=== PATIENT | female | born 1945 | race Caucasian/White ===

== ENCOUNTER → 2020-08-16 10:45 | Outpatient (BNVA) | payer MEDICARE, SELFPAY | PROVIDERS: PCP Internal Medicine; Referring Provider Internal Medicine; Visit Provider Internal Medicine | DX: M81.0 Age-related osteoporosis without current pathological fracture (principal); E55.9 Vitamin D deficiency, unspecified; R82.994 Hypercalciuria; K21.9 Gastro-esophageal reflux disease without esophagitis | CPT/HCPCS: 99214 ==

== ENCOUNTER 2020-08-17 08:58 | Outpatient (REF) | payer MEDICARE, SELFPAY ==
[2020-08-17 11:17] LABS: Albumin Level 3.8 g/dL (3.5-5.0); Calcium 8.5 mg/dL (8.4-10.2)
[2020-08-17 11:22] LABS: Alanine Aminotransferase 13 U/L (0-31); Alkaline Phosphatase 50 U/L (39-117); Anion Gap 9 (12-20); Aspartate Amino Transferase 18 U/L (5-31); Bilirubin Total 0.4 mg/dL (0.0-1.0); Blood Urea Nitrogen 15 mg/dL (9-16); Calcium 8.6 mg/dL (8.4-10.2); Carbon Dioxide 31 mmol/L (22-29); Chloride 102 mmol/L (96-108); Estimated Glomerular Filt Rate > 60; Glucose Random 79 mg/dL (60-115); Potassium 4.7 mmol/l (3.3-5.1); Sodium 137 mmol/L (135-145); Total Protein 6.8 g/dL (6.5-8.0)
[2020-08-17 11:42] LABS: Thyroid Stimulating Hormone 0.83 mIU/mL (0.32-4.0); Vitamin D 25-OH Total 33.2 ng/mL (>30)
[2020-08-19 21:07] LABS: Calcium (PTHI) 8.7 mg/dL (8.6-10.4); PTHI 38 pg/mL (14-64)
== END 2020-08-17 08:59 | disposition home or self-care (01) ==
LOC: HO.LAB 08:58
PROVIDERS: PCP Internal Medicine; Visit Provider Internal Medicine
DX: M81.0 Age-related osteoporosis without current pathological fracture (principal)
CPT/HCPCS: 36415; 80053; 82040; 82306; 82310; 83970; 84443

== ENCOUNTER 2020-09-16 12:45 | Outpatient (REF) | payer MEDICARE, SELFPAY ==
[2020-09-17 19:01] LABS: Calcium (PTHI) 8.5 mg/dL (8.6-10.4); PTHI 52 pg/mL (14-64)
== END 2020-09-16 12:46 | disposition home or self-care (01) ==
LOC: HO.HMGCLDS 12:45
PROVIDERS: PCP Internal Medicine; Visit Provider Internal Medicine
DX: M81.0 Age-related osteoporosis without current pathological fracture (principal)
CPT/HCPCS: 83970

== ENCOUNTER 2020-09-17 | Outpatient (REF) | payer MEDICARE, SELFPAY ==
[2020-09-23 16:42] LABS: N-Telopeptide 65 (see note); NTXCreaRU 106 mg/dL (20-275)
== END 2020-09-17 00:01 | disposition home or self-care (01) ==
LOC: HO.HMGCLNP
PROVIDERS: Visit Provider Internal Medicine
DX: M81.0 Age-related osteoporosis without current pathological fracture (principal)
CPT/HCPCS: 82523

== ENCOUNTER → 2020-09-22 14:39 | Outpatient (BNVA) | payer MEDICARE, SELFPAY | PROVIDERS: PCP Internal Medicine; Visit Provider Internal Medicine | DX: Z13.89 Encounter for screening for other disorder (principal) ==

== ENCOUNTER 2020-10-19 10:23 | Outpatient (REF) | payer MEDICARE, SELFPAY ==
[2020-10-19 14:24] LABS: Albumin Level 4.1 g/dL (3.5-5.0); Calcium 8.9 mg/dL (8.4-10.2); Estimated Glomerular Filt Rate > 60
[2020-10-19 14:49] LABS: Vitamin D 25-OH Total 27.6 ng/mL (>30)
== END 2020-10-19 10:24 | disposition home or self-care (01) ==
LOC: HO.10HDL 10:23
PROVIDERS: Visit Provider Internal Medicine
DX: M81.0 Age-related osteoporosis without current pathological fracture (principal)
CPT/HCPCS: 82040; 82306; 82310; 82565

== ENCOUNTER 2020-11-01 10:26 | Outpatient (REF) | payer MEDICARE, SELFPAY | END 2020-11-01 10:27 | disposition home or self-care (01) | LOC: HO.LAB 10:26 | PROVIDERS: Visit Provider Internal Medicine | DX: Z20.828 Contact with and (suspected) exposure to other viral communicable diseases (principal) | CPT/HCPCS: C9803; U0003 ==

== ENCOUNTER 2020-11-06 07:57 | Outpatient (REF) | payer MEDICARE, SELFPAY ==
--- NOTE | 2020-11-06 | XR_ITS ---
EXAMINATION: XR CERVICAL SPINE CLINICAL INFORMATION: Neck pain. COMPARISON: None TECHNIQUE: 6 views of the cervical spine were obtained. FINDINGS: There is maintained cervical lordosis. There is grade 1 anterolisthesis C4 over C5. The rest of the vertebral alignment is normal. There is moderate loss of C4-C5, significant loss of disc at C5-C6 and C6-C7 disc levels with posterior spondylosis at the C5-C6 disc level. On oblique views, there is bilateral moderate narrowing of neural foramina C4-C5, C5-C6 and C6-C7 disc levels from uncovertebral hypertrophic changes. No visible fracture or dislocation seen. There is moderate ventral spondylosis. XR/XR cervical spine 4V IMPRESSION: Grade 1 anterolisthesis C4 over C5 with degenerative disc changes C4-C5 through C6-C7 disc levels. There is moderate posterior spondylosis at the C5-C6 disc level. Bilateral narrowing of neural foramina as described above from uncovertebral hypertrophic changes. The same levels, there is bilateral facet joint arthropathy from C4-C5 through C6-C7 disc levels.
== END 2020-11-06 07:58 | disposition home or self-care (01) ==
LOC: HO.XRAY 07:57
PROVIDERS: PCP Internal Medicine; Visit Provider Internal Medicine
DX: M54.2 Cervicalgia (principal)
CPT/HCPCS: 72050

== ENCOUNTER → 2020-11-22 10:43 | Outpatient (BNVA) | payer MEDICARE, SELFPAY | PROVIDERS: PCP Internal Medicine; Visit Provider Internal Medicine | DX: J84.10 Pulmonary fibrosis, unspecified (principal) | CPT/HCPCS: 99212 ==

== ENCOUNTER → 2020-11-25 09:32 | Outpatient (REF) | payer MEDICARE, SELFPAY ==
--- NOTE | 2020-11-25 | NM_ITS ---
EXAMINATION: NM BONE SCAN OF THE WHOLE BODY CLINICAL INFORMATION: Complex fracture cervical vertebra with nonunion. Patient states head and neck pain for 3 weeks, history of osteoporosis. Also states 3 months ago twisted ankle/fell. COMPARISON: No previous bone scan is available for comparison. Radiographs of the cervical spine dated 11/06/2020 and of the left ankle dated 05/03/2020 are available for comparison. TECHNIQUE: Multiple gamma scintillation camera images of the whole body were performed 2.5 hours following the intravenous administration of 16 mCi Tc-99m MDP. FINDINGS: In the head, no significant abnormalities are present. In the thoracic cage and upper extremities, there is mildly increased activity in the right acromioclavicular joint and the sternoclavicular joints bilaterally and very faintly in the glenohumeral articulations of both shoulders. Some residual radiopharmaceutical at the injection site in the right antecubital fossa is noted. In the spine, a minimal thoracolumbar scoliosis is present with lumbar convexity to the left. There is very mildly increased activity in the mid lumbar spine at the L2-L3 level and a faint focus of increased activity is present in the right posterior elements of the mid to lower cervical spine probably at the C5 level and most consistent with facet arthropathy. No other spine abnormalities are present. In the pelvis, no significant abnormalities are present. In the lower extremities, very faint, barely perceptibly increased activity is present in the lateral malleolus of the left ankle. No other definite bony abnormalities are noted. The urinary bladder and faint visualization of both kidneys are noted. Radiographs of the left ankle dated 05/03/2020 show moderate lateral malleolar soft tissue swelling but no fracture or dislocation. Radiographs of the cervical spine dated 11/06/2022 multilevel degenerative changes and a grade 1 anterolisthesis of C4 over C5. NM/NM bone scan whole body IMPRESSION: Mild nonspecific abnormalities are noted as described above and these are all likely arthritic or traumatic in etiology. In the cervical spine the only abnormality is present bilaterally in the mid to lower right side of the cervical spine which is probably in the posterior elements and due to facet arthropathy. None of these abnormalities is strongly suspicious for a recent fracture or metastatic disease.
== END ==
LOC: HO.NUCMED 09:32
PROVIDERS: PCP Internal Medicine; Visit Provider Internal Medicine
DX: S12.9XXD Fracture of neck, unspecified, subsequent encounter (principal)
CPT/HCPCS: 78306; A9503

== ENCOUNTER → 2020-12-02 11:17 | Outpatient (BNVA) | payer MEDICARE, SELFPAY | PROVIDERS: PCP Internal Medicine; Visit Provider Internal Medicine | DX: Z13.89 Encounter for screening for other disorder (principal) | CPT/HCPCS: Q3014 ==

== ENCOUNTER 2021-03-14 09:59 | Outpatient (REF) | payer MEDICARE, SELFPAY ==
[2021-03-14 15:10] LABS: Vitamin D 25-OH Total 41.4 ng/mL (>30)
[2021-03-15 17:16] LABS: Calcium (PTHI) 8.9 mg/dL (8.6-10.4); PTHI 26 pg/mL (14-64)
== END 2021-03-14 10:00 | disposition home or self-care (01) ==
LOC: HO.10HDL 09:59
PROVIDERS: Absent Provider Internal Medicine; Visit Provider Internal Medicine
DX: M81.0 Age-related osteoporosis without current pathological fracture (principal); E55.9 Vitamin D deficiency, unspecified
CPT/HCPCS: 36415; 82040; 82306; 82310; 83970

== ENCOUNTER 2021-03-17 10:57 | Outpatient (REF) | payer MEDICARE, SELFPAY ==
[2021-03-17 11:17] LABS: Glucose Urine UA NEG (NEG); Leukocyte Esterase Urine NEG (NEG); Nitrite Urine NEG (NEG); Urine Blood NEG (NEG); Urine Ketones NEG (NEG); Urine Protein NEG (NEG-TRACE)
[2021-03-17 11:19] LABS: Appearance Urine CLEAR; Color Urine YELLOW
[2021-03-17 11:38] LABS: RBC Urine 0 /HPF (0); Squamous Epithelial Cell Urine TRACE /LPF; WBC Urine 0-2 /HPF (0-4)
== END 2021-03-17 10:58 | disposition home or self-care (01) ==
LOC: HO.LNP 10:57
PROVIDERS: Visit Provider Internal Medicine
DX: R35.0 Frequency of micturition (principal)
CPT/HCPCS: 81001; 87086

== ENCOUNTER 2021-03-21 09:00 | Outpatient (RCR) | payer MEDICARE, SELFPAY ==
--- NOTE | 2021-02-03 16:07 | MHC.PT.EP ---
[facility] [place] Office [place] Office [place] Office [address] [place] Quinn [address] [phone] F: [phone] F: [phone] F: [phone] F: [phone] Physical Therapy Plan of Care Date of Evaluation: 02/03/21 Date of Surgery: n/a Diagnosis: Occipital neuralgia of right side Assessment: The Pt is a 75 y/o female referred to skilled PT services for occipital neuralgia R side. Assessment reveals significantly decreased cervical ROM, impaired strength, impaired muscle length, impaired posture, and tenderness to palpation. Related functional limitations include: difficulty looking down as if to make a salad or text message someone, sleeping, driving, gardening, and walking. The Pt will benefit from skilled PT services 2x/week for 5 weeks in order to reduce impairment and improve limitations. Frequency and Duration: The patient will be seen 2x/week for 5 weeks Short Term Goals: -In 2 weeks, Pt to report less than 6/10 pain when sleeping @ night. -In 3 weeks, Pt to improve ROM in all directions by at least 10 degrees. Residential Goals: -In 4 weeks, Pt to demonstrate increased postural awareness w/ IADLs/ADLs such as texting and meal prep. -In 5 weeks, Pt to demonstrate I w/ HEP. -In 5 weeks, Pt to report 50% improved symptoms. Treatment Plan: Modalities to reduce pain, spasms and effusion. Manual therapy to restore motion and function. Therapeutic exercise to improve strength and flexibility. Neuromuscular re-education for posture and balance. Therapeutic activities to return to functional activities of daily living. Electronically signed by: Nia Baca PT, DPT Please sign and return to therapist. Thank you for your referral.
--- NOTE | 2021-04-05 15:20 | MHC.PT.DC ---
[facility] [place] Office [place] Office [place] Office [address] [place] Quinn 140 [facility] [phone] F: [phone] F: [phone] F: [phone] F: [phone] Physical Therapy Discharge Report Diagnosis: Occipital neuralgia of right side Date of Surgery: n/a Date of Evaluation: 02/03/21 Date of Discharge: 04/05/21 Treatments to Date: 11 Cancellations to Date: 0 No Shows to Date: 0 Discharge Status: Independent with HEP Physician Discontinued Tx Discharge Summary: UNDERWENT MRI, KRIS REPORTS THAT SHE WILL BE FOLLOWING UP WITH NEUROSURGEON HER SYMPTOMS HAVE NOT SIGNIFICANTLY CHANGED Electronically signed by: Daniela Obrien PT, DPT Please sign and return to therapist. Thank you for your referral.
== END 2021-04-05 15:23 | disposition other institution (70) ==
LOC: HO.PT 09:00
PROVIDERS: PCP Internal Medicine; Visit Provider Internal Medicine
DX: M54.81 Occipital neuralgia (principal)
CPT/HCPCS: 97035; 97110; 97112; 97140; 97161

== ENCOUNTER → 2021-03-23 08:50 | Outpatient (BNVA) | payer MEDICARE, SELFPAY | PROVIDERS: PCP Internal Medicine; Visit Provider Internal Medicine | DX: M81.0 Age-related osteoporosis without current pathological fracture (principal); E55.9 Vitamin D deficiency, unspecified; R82.994 Hypercalciuria | CPT/HCPCS: 96372; 99212 ==

== ENCOUNTER 2021-03-24 11:05 | Outpatient (REF) | payer MEDICARE, SELFPAY ==
--- NOTE | ~2021-03-24 | MR_ITS ---
EXAMINATION: MR CERVICAL SPINE WITHOUT CONTRAST CLINICAL INFORMATION: Occipital neuralgia, right side. COMPARISON: Cervical spine MRI December 16, 2013. TECHNIQUE: MRI of the cervical spine was performed using routine sequences without contrast. FINDINGS: Robust bone marrow edema is seen about the right-sided lateral C1-C2 articulation best demonstrated on the STIR series 5 image 12/14. The left-sided C1-C2 articulation is unremarkable. The odontoid is retroflexed and there is some retrodental pannus resulting in narrowing of the cervicomedullary junction the subarachnoid space is not effaced and there is no mass effect on the cord. The vertebral body heights are maintained. There is mild anterolisthesis of C3 on C4, C4 on C5, and C5 on C6. There is multilevel intervertebral disc height loss most advanced at C6-C7 where there are edematous endplate changes. Mild ill-defined intramedullary T2 hyperintensity is seen at the C4-C5 level. The imaged portions of the intracranial contents appear normal. The extraspinal soft tissues appear normal. SPINAL LEVELS: C2-C3: No posterior disc abnormality or spinal canal stenosis. Right-sided facet ankylosis. C3-C4: No posterior disc abnormality or spinal canal stenosis. Bilateral facet ankylosis and uncovertebral hypertrophy resulting in severe right and mild left neural foraminal stenosis. No significant change. C4-C5: Disc osteophyte complex with uncovertebral hypertrophy and severe bilateral facet arthropathy resulting in severe spinal canal stenosis with mass effect on the ventral and dorsal cord. Severe bilateral neural foraminal stenosis. Findings have progressed prior. C5-C6: Disc osteophyte complex without spinal canal stenosis. Left uncovertebral hypertrophy and moderate to severe left and moderate right facet arthropathy results in severe left and mild right neural foraminal stenosis, progressed from prior. C6-C7: Disc osteophyte complex with left more than right uncovertebral hypertrophy and moderate left and mild right facet arthropathy resulting in severe left and moderate right neural foraminal stenosis, similar to prior. C7-T1: No posterior disc abnormality. Moderate to severe bilateral facet arthropathy. No spinal canal or neural foraminal stenosis. MR/MR cervical spine wo con IMPRESSION: Significant marrow edema seen about the right-sided lateral C1-C2 articulation reflecting advanced arthropathy, new from prior. This finding may be the source of the patient's right-sided occipital neuralgia. Multilevel degenerative spondylosis with interval progression compared with 2014. At C4-C5 there is new severe spinal canal stenosis with mild intramedullary edema. Neural foraminal stenosis appears severe on the right at C3-C4, severe bilaterally at C4-C5, severe on the left at C5-C6, and severe on the left and moderate on the right at C6-C7. This critical result was discussed with Dr. Jennings on 03/28/2021 2:09 PM, and it was ascertained that the content and urgency of the report was understood at the time of direct communication.
== END 2021-03-24 11:06 | disposition home or self-care (01) ==
LOC: HO.MRI 11:05
PROVIDERS: Visit Provider Internal Medicine
DX: M54.81 Occipital neuralgia (principal)
CPT/HCPCS: 72141

== ENCOUNTER 2021-04-06 10:04 | Outpatient (REF) | payer MEDICARE, SELFPAY ==
[2021-04-06 13:43] LABS: Albumin Level 3.9 g/dL (3.5-5.0); Estimated Glomerular Filt Rate > 60
[2021-04-08 10:22] LABS: PTHI 27 pg/mL (14-64)
== END 2021-04-06 10:05 | disposition home or self-care (01) ==
LOC: HO.10HDL 10:04
PROVIDERS: Visit Provider Internal Medicine
DX: M81.0 Age-related osteoporosis without current pathological fracture (principal)
CPT/HCPCS: 36415; 82040; 82310; 82565; 83970

== ENCOUNTER 2021-06-16 10:43 | Outpatient (REF) | payer MEDICARE, SELFPAY ==
--- NOTE | ~2021-06-16 | XR_ITS ---
EXAMINATION: XR CERVICAL SPINE CLINICAL INFORMATION: Cervical spondylosis. COMPARISON: MRI cervical spine 03/24/2021, radiographs cervical spine 11/06/2020 TECHNIQUE: Cervical spine is imaged in 8 views: AP, lateral, bilateral oblique, odontoid x3, and Fuchs. FINDINGS: There is normal cervical lordosis. The vertebral bodies are normal in height. There is no vertebral compression, visible destructive process, or prevertebral soft tissue swelling. Again, there are degenerative disc changes greatest at C5-C6 and C6-C7 with disc narrowing and endplate sclerosis and vertebral spurring. There is lesser disc narrowing at C4-C5. Facet degeneration is again noted mid to lower cervical spine. There is mild spondylolisthesis C4 and C5 and borderline retrolisthesis C6 on C7 similar to prior radiographs 11/06/2020. The oblique views again show variable multilevel spurring towards the bilateral neural foramina. XR/XR cervical spine 4V IMPRESSION: 1. Multilevel degenerative disc and degenerative facet changes similar to prior radiographs 11/06/2020. 2. Mild spondylolisthesis C4-C5 and retrolisthesis C6 on C7 similar to prior exam. 3. Variable bilateral multilevel foraminal spurring.
--- NOTE | ~2021-06-16 | MM_ITS ---
EXAMINATION: MM SCREENING DIGITAL BREAST TOMOSYNTHESIS, BILATERAL CLINICAL INFORMATION: Screening. Asymptomatic. The lifetime risk of breast cancer based on the Tyrer-Cuzick Model is 2%. COMPARISON: Outside mammography: 07/12/2020, 03/19/2019, 11/29/2017 ([facility]) TECHNIQUE: Digital breast tomosynthesis is performed in both the craniocaudal and mediolateral oblique views along with computer-aided detection (CAD). Synthesized 2D images are generated from the tomosynthesis. FINDINGS: The breasts are heterogeneously dense, which may obscure small masses (ACR BI-RADS breast composition Category c). The denser parenchymal pattern is in the anterior breasts. The parenchymal pattern is similar to prior outside exams. There is no mass or architectural abnormality or abnormal calcifications. The axilla and skin contours are unremarkable. No significant changes. MM/MM tomosynthesis screening BI IMPRESSION: No mammographic evidence of malignancy. ASSESSMENT: BI-RADS 1: Negative RECOMMENDATION: Routine annual mammography screening. This patient's information was entered into a reminder system with a target due date for their next mammogram.
== END 2021-06-16 10:44 | disposition home or self-care (01) ==
LOC: HO.MAMMO 10:43
PROVIDERS: Absent Provider Physician Assistant; PCP Internal Medicine; Visit Provider Internal Medicine
DX: Z12.31 Encounter for screening mammogram for malignant neoplasm of breast (principal); M54.2 Cervicalgia
CPT/HCPCS: 72050; 77063; 77067

== ENCOUNTER 2021-08-01 10:28 | Outpatient (REF) | payer MEDICARE, SELFPAY ==
[2021-08-01 10:32] LABS: MANUAL DIFF FLAG NO
[2021-08-01 11:26] LABS: Basophils Percent Auto 0.6 % (0-2); Eosinophils Absolute Auto 0.1 X10*3/uL (0.0-0.4); Eosinophils Percent Auto 2.6 % (0-4); Hematocrit 43.1 % (37-47); Hemoglobin 14.4 g/dl (12.0-16.0); Imm Gran Abs Auto 0.02 X10*3/uL (0.00-0.03); Imm Gran Pct Auto 0.4 % (0.0-0.4); Lymphocytes Absolute Auto 1.5 X10*3/uL (1.2-4.9); Lymphocytes Percent Auto 29.1 % (20-40); Mean Corpuscular HGB Conc 33.4 g/dl (31.0-35.0); Mean Corpuscular Hemoglobin 30.9 pg (27.0-33.0); Mean Corpuscular Volume 92.5 fL (80-98); Mean Platelet Volume 11.2 fL (9.4-12.3); Monocytes Absolute Auto 0.6 X10*3/uL (0.1-1.2); Monocytes Percent Auto 11.2 % (2-11); Neutrophils Absolute Auto 2.9 X10*3/uL (2.0-8.3); Neutrophils Percent Auto 56.1 % (45-73); Platelet Count 258 X10*3/uL (160-400); Red Blood Count 4.66 X10*6/uL (4.20-5.50); Red Cell Distribution Width 12.3 % (11.0-16.0); White Blood Count 5.1 X10*3/uL (4.8-10.8)
[2021-08-01 12:08] LABS: Appearance Urine HAZY; Color Urine YELLOW; Glucose Urine UA NEG (NEG); Leukocyte Esterase Urine NEG (NEG); Nitrite Urine NEG (NEG); Specific Gravity - Urine 1.015 (1.005-1.025); Urine Blood NEG (NEG); Urine Ketones NEG (NEG); Urine Protein NEG (NEG-TRACE)
[2021-08-01 14:36] LABS: Vitamin D 25-OH Total 41.9 ng/mL (>30)
[2021-08-01 14:47] LABS: Alanine Aminotransferase 11 U/L (0-31); Alkaline Phosphatase 40 U/L (39-117); Anion Gap 16 (12-20); Aspartate Amino Transferase 21 U/L (5-31); Bilirubin Total 0.3 mg/dL (0.0-1.0); Blood Urea Nitrogen 12 mg/dL (9-16); Calcium 8.8 mg/dL (8.4-10.2); Carbon Dioxide 24 mmol/L (22-29); Chloride 101 mmol/L (96-108); Cholesterol 212 mg/dL; Estimated Glomerular Filt Rate > 60; Glucose Fasting 83 mg/dL (60-99); HDL Cholesterol 86 mg/dL; LDL Cholesterol Calculated 118 mg/dl; Potassium 4.5 mmol/L (3.3-5.1); Sodium 136 mmol/L (135-145); Total Protein 6.7 g/dL (6.5-8.0); Triglycerides 42 mg/dL
== END 2021-08-01 10:29 | disposition home or self-care (01) ==
LOC: HO.LNP 10:28
PROVIDERS: Visit Provider Internal Medicine
DX: M81.0 Age-related osteoporosis without current pathological fracture (principal); E55.9 Vitamin D deficiency, unspecified; E78.00 Pure hypercholesterolemia, unspecified
CPT/HCPCS: 80053; 80061; 81003; 82306; 85025

== ENCOUNTER 2021-10-27 11:00 | Outpatient (RCR) | payer MEDICARE, SELFPAY | END 2021-10-28 14:29 | disposition home or self-care (01) | LOC: HO.PT 11:00 | PROVIDERS: PCP Internal Medicine; Visit Provider Physician Assistant | DX: M43.6 Torticollis (principal); M62.838 Other muscle spasm; M54.81 Occipital neuralgia | CPT/HCPCS: 97110; 97140; 97161; 97535 ==

== ENCOUNTER 2021-11-02 09:25 | Outpatient (REF) | payer MEDICARE, SELFPAY ==
--- NOTE | ~2021-11-02 | MM_ITS ---
EXAMINATION: BONE DENSITOMETRY CLINICAL INDICATION: Osteoporosis. COMPARISON: Previous BD dated 10/30/2019 and baseline BD dated 03/05/2007. TECHNIQUE: Using a [employer] DXA System (software version: 13.1) manufactured by [employer], dual-energy x-ray absorptiometry was performed of the lumbar spine and left hip. The images are of good technical quality. Summary results are attached. FINDINGS: AP SPINE L1-L4 (excluding L3): The data of L1-L4 has been changed to exclude the L3 vertebral body, because degenerative changes at this level may cause overestimation of lumbar spine density. Current: BMD 0.947 g/cm2, Z-score 0.6, T-score -1.9, osteopenia, 0.1% increase from previous, 5.3% decrease from baseline (<5% change is not significant). Prior: BMD 0.946 g/cm2. Baseline: BMD 1.000 g/cm2. LEFT FEMUR, NECK: Current: BMD 0.769 g/cm2, Z-score 0.6, T-score -1.9, osteopenia. Prior: BMD 0.697 g/cm2. Baseline: BMD 0.736 g/cm2. LEFT FEMUR, TOTAL: Current: BMD 0.760 g/cm2, Z-score 0.4, T-score -2.0, osteopenia, 8.9% increase from previous, 1.8% decrease from baseline (<5% change is not significant). Prior: BMD 0.698 g/cm2. Baseline: BMD 0.774 g/cm2. IDENTIFIED RISK FACTORS: Menopause, osteoporosis. HISTORY OF FRACTURE: None listed. MEDICATIONS: Calcium supplements or multivitamin, vitamin D, Prolia. MM/XR DEXA axial skeleton IMPRESSION: 1. DIAGNOSIS: Osteopenia based on the lowest T-score value of -2.0 in the total femur applying World Health Organization criteria. 2. 10-YEAR FRACTURE RISK PREDICTION, FRAX: Major osteoporotic fracture (clinical spine, forearm, hip or shoulder) 13.0%. Hip fracture 3.8%. 3. Treatment Recommendations: NOF guidelines recommend consideration for treatment in postmenopausal women and men age 50 and older presenting with the following: -A hip or vertebral (clinical or morphometric) fracture. -T-score less than or equal to -2.5 at the femoral neck or spine after appropriate evaluation to exclude secondary causes. -Low bone mass at the hip or spine and a 10-year fracture probability by FRAX of greater than or equal to 3% for hip fracture or greater than or equal to 20% for major osteoporotic fracture based on the [place] adapted WHO algorithm. 4. Other Recommendations: All treatment decisions require clinical judgment and consideration of individual patient factors, including patient preferences, comorbidities, previous drug use, risk factors not captured in the FRAX model (e.g. frailty, falls, vitamin D deficiency, increased bone turnover, interval significant decline in bone density) and possible under or overestimation of fracture risk by FRAX. Additional medical evaluation for secondary cause of low bone mineral density may be appropriate. FUTURE SCAN RECOMMENDATION: People with diagnosed cases of osteoporosis or at high risk for fracture should have regular bone mineral density tests. For patients eligible for Medicare, routine testing is allowed once every 2 years. The testing frequency can be increased to one year for patients who have rapidly progressing disease, those who are receiving or discontinuing medical therapy to restore bone mass, or have additional risk factors.
== END 2021-11-02 09:26 | disposition home or self-care (01) ==
LOC: HO.MAMMO 09:25
PROVIDERS: Visit Provider Internal Medicine
DX: Z13.820 Encounter for screening for osteoporosis (principal); M85.80 Other specified disorders of bone density and structure, unspecified site; Z78.0 Asymptomatic menopausal state; Z79.899 Other long term (current) drug therapy
CPT/HCPCS: 77080

== ENCOUNTER → 2021-11-30 09:19 | Outpatient (BNVA) | payer MEDICARE, SELFPAY | PROVIDERS: PCP Internal Medicine; Visit Provider Internal Medicine | DX: J84.10 Pulmonary fibrosis, unspecified (principal) | CPT/HCPCS: 99212 ==

== ENCOUNTER 2021-12-13 12:40 | Outpatient (REF) | payer MEDICARE, SELFPAY ==
[2021-12-13 14:22] LABS: Alanine Aminotransferase 9 U/L (0-31); Alkaline Phosphatase 48 U/L (39-117); Anion Gap 9 (12-20); Aspartate Amino Transferase 20 U/L (5-31); Bilirubin Total 0.3 mg/dL (0.0-1.0); Blood Urea Nitrogen 16 mg/dL (9-16); Calcium 9.1 mg/dL (8.4-10.2); Carbon Dioxide 30 mmol/L (22-29); Chloride 100 mmol/L (96-108); Estimated Glomerular Filt Rate > 60; Glucose Random 122 mg/dL (60-115); Phosphorus 3.4 mg/dL (2.7-4.5); Potassium 4.3 mmol/L (3.3-5.1); Sodium 135 mmol/L (135-145); Total Protein 6.9 g/dL (6.5-8.0)
[2021-12-13 14:43] LABS: Vitamin D 25-OH Total 43.4 ng/mL (>30)
[2021-12-14 16:06] LABS: Calcium, Ionized 4.7 mg/dL (4.8-5.6)
[2021-12-15 16:31] LABS: PTHI 35 pg/mL (14-64)
== END 2021-12-13 12:41 | disposition home or self-care (01) ==
LOC: HO.10HDL 12:40
PROVIDERS: Visit Provider Internal Medicine
DX: M81.0 Age-related osteoporosis without current pathological fracture (principal); E55.9 Vitamin D deficiency, unspecified
CPT/HCPCS: 36415; 80053; 82306; 82330; 83970; 84100

== ENCOUNTER 2021-12-14 09:14 | Outpatient (REF) | payer MEDICARE, SELFPAY ==
[2021-12-18 09:36] LABS: N-Telopeptide 40 (see note); NTXCreaRU 80 mg/dL (20-275)
== END 2021-12-14 09:15 | disposition home or self-care (01) ==
LOC: HO.10HDLNP 09:14
PROVIDERS: Visit Provider Internal Medicine
DX: M81.0 Age-related osteoporosis without current pathological fracture (principal)
CPT/HCPCS: 82523

== ENCOUNTER 2021-12-20 10:29 | Emergency (ER) | payer MEDICARE, SELFPAY ==
--- NOTE | ~2021-12-20 | XR_ITS ---
EXAMINATION: XR WRIST, RIGHT CLINICAL INFORMATION: Fall COMPARISON: None TECHNIQUE: Four views of the right wrist. FINDINGS: There is a comminuted displaced impacted fracture of the right distal radius. This is intra-articular with the radiocarpal joint. There is a minimally displaced ulnar styloid fracture. There is arthritis at the first [facility] and trapezoid trapezium scaphoid joints. There is soft tissue swelling adjacent to the fractures. XR/XR wrist RT 2V IMPRESSION: Right distal radius and ulnar styloid fractures.
[2021-12-20 10:34] VITALS: BP 120/61; PULSE 68; RESP 14; TEMP 36.6; O2SAT 98
[2021-12-20 10:46] VITALS: BP 124/72; PULSE 64; O2SAT 98; BMI 21.2
--- NOTE | 2021-12-20 10:58 | ED.FALL ---
HPI - Fall General Chief Complaint: Fall Stated Complaint: SLIP/FALL ON ICE, WRIST PAIN/INJURY,+CCOLLAR Time Seen by Provider: 12/20/21 10:51 Source: patient and EMS Mode of arrival: EMS Limitations: no limitations History of Present Illness HPI Narrative: 76-year-old female with a history of pulmonary fibrosis, vitamin-D deficiency, osteoporosis here with reports of right wrist and hand pain after a slip and fall on the ice with a fall on her outstretched hand. patient is right-handed. She denies any head injury or loss of consciousness. She is not on any anticoagulation. She has no other physical complaints. Related Data Home Medications Medication Instructions Recorded Confirmed citalopram 10 mg tablet 10 mg PO DAILY 08/16/20 03/23/21 cranberry 400 mg capsule 400 mg PO DAILY 11/22/20 03/23/21 docusate sodium 100 mg capsule 100 mg PO DAILY 11/22/20 03/23/21 (Colace) estradiol 1 g VAGINAL 2XW g 11/30/21 Previous Rx's Medication Instructions Recorded denosumab 60 mg/mL subcutaneous 60 mg SUBCUT [id number] 180 Days #1 08/23/21 syringe (Prolia) ml calcium citrate 315 mg-vitamin D3 1 tab PO DAILY 30 Days #30 tab 11/21/21 5 mcg (200 unit) tablet cholecalciferol (vitamin D3) 25 25 mcg PO DAILY 30 Days #30 cap 11/27/21 mcg (1,000 unit) capsule Allergies Allergy/AdvReac Type Severity Reaction Status Date / Time Sulfa (Sulfonamide Allergy Severe Anaphylaxis Verified 11/30/21 09:29 Antibiotics) codeine [CODEINE] Allergy Intermediate GI UPSET Verified 11/30/21 09:29 erythromycin base AdvReac Severe gi upset Verified 11/30/21 09:29 Review of Systems Review of Systems: Yes all other systems are reviewed and are negative Constitutional: Constitutional: Reports no additional constitutional complaints, Denies body ache(s), Denies chills, Denies fever(s), Denies headache(s) and Denies weakness Eyes: Eyes: Reports no additional eye complaints and Denies change in vision ENT: Reports system reviewed and no additional complaints, except as documented, Denies dizziness, Denies headache(s), Denies nasal congestion, Denies nasal discharge and Denies neck pain Cardiovascular: Cardiovascular: Reports no additional cardiovascular complaints, Denies chest pain, Denies leg edema and Denies dyspnea Respiratory: Respiratory: Reports no additional respiratory complaints, Denies cough and Denies dyspnea Gastrointestinal: Gastrointestinal: Reports no additional gastrointestinal complaints, Denies abdominal pain, Denies diarrhea, Denies nausea and Denies vomiting Genitourinary: Genitourinary: Reports no additional female genitourinary complaints and Denies urinary incontinence Musculoskeletal: Musculoskeletal: Reports no additional musculoskeletal complaints, Denies back pain, Denies arthralgias, Reports joint swelling, Reports limited range of motion, Denies neck pain, Denies numbness and Denies tingling Integumentary/Breasts: Skin/Breast: Reports system reviewed and no additional complaints, except as docu and Denies rash Neurologic: Reports system reviewed and no additional complaints, except as documented, Denies Abnormal speech present, Denies dizziness, Denies headache(s), Denies numbness, Denies tingling and Denies weakness PMFSH Past Medical History Attestation statement: The following information was validated with the patient. Source: old records reviewed and nursing notes reviewed Medical History Glaucoma Hypercalciuria Osteoporosis Pulmonary fibrosis Vitamin D deficiency Surgical History History of carpal tunnel surgery Hx of adenoidectomy Hx of colonoscopy Hx of hammer toe correction Hx of tonsillectomy Family History Family History Father Lung cancer Mother CVD (cardiovascular disease) Social History Social History Advance Directives: Yes Advance Directives Information Provided: No Advance Directives on File: No Physical Exam Vital Signs: Vital Signs: Last Vital Signs Temp 97.9 F 12/20/21 10:34 Pulse 68 12/20/21 10:34 Resp 14 12/20/21 10:34 BP 120/61 12/20/21 10:34 Pulse Ox 98 12/20/21 10:34 BMI result Body Mass Index 21.2 Const: General: cooperative, healthy appearing, comfortable and no acute distress Orientation/consciousness: patient oriented x3 Limitations: no limitations HENMT: Head: Yes normal to inspection Ears: hearing grossly normal bilaterally General nose exam: Normal external nose present Face and sinus: Yes normal facial exam Mouth: Normal oral and palatal mucosa present Throat: Yes posterior oropharynx normal Eyes: General: appearance normal, both eyes and all related structures Pupils: Equal, round and reactive pupils present Neck: Neck: Yes normal visual inspection Chest: Chest palpation & inspection: normal inspection of the chest Resp: Effort & Inspection: normal respiratory effort Auscultation: clear to auscultation bilaterally Cardio: Rate: regular rate Rhythm: regular rhythm Peripheral pulses: Peripheral pulses 2+ throughout GI: Inspection: Yes normal to inspection Palpation (GI): Soft to palpation and nontender Auscultation: normal bowel sounds Back/Spine/Pelvis: Thoracic/Lumbar Spine: thoracic and lumbar spine normal to inspection Skin: General skin exam: no rashes or lesions noted Neuro: General: patient oriented x3, no focal motor deficits and normal sensation to monofilament Cranial nerves: Yes CN's II-XII intact bilaterally, Yes Equal, round and reactive pupils present, Yes Bilaterally intact EOM present, Yes Nystagmus not present, Yes Normal facial strength present and Yes Midline tongue present Cognition (Neuro): normal cognition Speech: No Abnormal speech present Gait exam (Neuro): Normal gait present Motor exam (neuro): 5/5 motor strength present throughout Sensory Exam: Normal double simultaneous stimulation for sensation Extrem: Other: There is swelling and tenderness to the right distal dorsal wrist with limited flexion and extension of the wrist due to pain. no tenderness or swelling of the hand over the elbow or the shoulder. Neurovascularly intact distally to the injury. General: Yes normal to inspection Course Course Course Narrative: 76-year-old female right-handed here with FOOSH to the right upper extremity. WIll check x-rays, provide analgesia. No head strike or loss of consciousness. Normal neurological exam. no neck pain. No need for imaging of head/neck. cervical collar removed. CMS Intact before and after,. 1215- X-rays of wrist show FINDINGS: There is a comminuted displaced impacted fracture of the right distal radius. This is intra-articular with the radiocarpal joint. There is a minimally displaced ulnar styloid fracture. There is arthritis at the first [facility] and trapezoid trapezium scaphoid joints. There is soft tissue swelling adjacent to the fractures. XR/XR wrist RT 2V IMPRESSION: Right distal radius and ulnar styloid fractures. - light traction and counter traction used during placement of sugar-tong splint and sling. I discussed the case with orthopedics Gail HUGHES. they will follow-up with patient outpatient. Patient is here with a son who will take her home. They feel comfortable with plan for discharge home. Reviewed worrisome signs and symptoms of when to return to the emergency department. Comfortable discharge home. Procedures Orthopedic Splinting/Casting Injury #1: Side: right Upper Extremity Injury Location: forearm Upper Extremity Immobilizer: sugar tong splint MDM - Fall Medical Records Attestation: I reviewed the patient's medical records. Lab Data Attestation: I reviewed the patient's lab results. Imaging Data right schneider/wrist xry: Attestation: I personally reviewed and interpreted this imaging study as follows: Radiologist's impression: FINDINGS: There is a comminuted displaced impacted fracture of the right distal radius. This is intra-articular with the radiocarpal joint. There is a minimally displaced ulnar styloid fracture. There is arthritis at the first [facility] and trapezoid trapezium scaphoid joints. There is soft tissue swelling adjacent to the fractures. XR/XR wrist RT 2V IMPRESSION: Right distal radius and ulnar styloid fractures. Discharge Plan Discharge Clinical Impression: Distal radial fracture, Fracture of right ulnar styloid Patient Disposition: Home, Self-Care Instructions: Wrist Fracture in Adults (ED), Splint Care (ED) Additional Instructions: this splint must stay on all times. do not get it wet. use a sling for comfort. call Orthopedics for follow-up appointment ice, elevate, do not use the extremity Alternate Motrin and Tylenol for pain as needed Prescriptions: No Action Prolia 60 mg/mL syringe 60 mg subcut [id number] 180 Days Qty: 1 2RF calcium citrate-vitamin D3 315 mg-5 mcg (200 unit) tablet 1 tab PO DAILY 30 Days Qty: 30 11RF cholecalciferol (vitamin D3) 25 mcg (1,000 unit) capsule 25 mcg PO DAILY 30 Days Qty: 30 11RF cranberry 400 mg capsule 400 mg PO DAILY 0RF Rx Instructions: administer with a meal docusate sodium [Colace] 100 mg capsule 100 mg PO DAILY 0RF estradiol 0.01 % (0.1 mg/gram) cream 1 g vaginal 2XW 0RF citalopram 10 mg tablet 10 mg PO DAILY 0RF Referrals: Raj Graves MD [Physician] - 2 days Interventions: ED Discharge Assessment Last Done: 12/20/21 12:03 Discharge Date/Time: 12/20/21 12:04
[2021-12-20] MEDS: Ibuprofen 600 MG TABLET PO (11:19)
== END 2021-12-20 12:04 | disposition home or self-care (01) ==
PROVIDERS: Emergency Provider Emergency Medicine; PCP Internal Medicine
DX: S52.501A Unspecified fracture of the lower end of right radius, initial encounter for closed fracture (principal); S52.611A Displaced fracture of right ulna styloid process, initial encounter for closed fracture; M25.531 Pain in right wrist; W00.0XXA Fall on same level due to ice and snow, initial encounter; Y93.9 Activity, unspecified; Y92.9 Unspecified place or not applicable; Y99.9 Unspecified external cause status
CPT/HCPCS: 29125; 73100; 99283; 99284

== ENCOUNTER → 2021-12-22 09:32 | Outpatient (BNVA) | payer MEDICARE, SELFPAY | PROVIDERS: PCP Internal Medicine; Visit Provider Internal Medicine | DX: S52.501A Unspecified fracture of the lower end of right radius, initial encounter for closed fracture (principal); M81.0 Age-related osteoporosis without current pathological fracture; E55.9 Vitamin D deficiency, unspecified | CPT/HCPCS: 29125; 99202; 99212 ==

== ENCOUNTER 2021-12-26 07:04 | Day surgery (SDC) | payer MEDICARE, SELFPAY ==
--- NOTE | 2021-12-23 11:01 | HO.ANESPROP2 ---
Documented by User: Anabel Carrington NP 12/23/21 11:04 HPI - Anesthesia Eval Consult details Narrative: 76yo F for Right Radius Distal Fracture ORIF 11/2021 Routine Pulmo visit: pulmonary fibrosis mild and essentially asymptomatic PMFSH Active Problems Active Problems: All Active Problems (Updated 12/22/21 @ 10:54 by Jyoti Bejarano PA-C) Distal radius fracture, right (Acute) Pulmonary fibrosis (Acute) Vitamin D deficiency (Acute) Hypercalciuria (Acute) Osteoporosis (Acute) Past Medical History Medical History Glaucoma Hypercalciuria Osteoporosis Pulmonary fibrosis Vitamin D deficiency Family History Family History Father Lung cancer Mother CVD (cardiovascular disease) Surgical History Surgical History History of carpal tunnel surgery Hx of adenoidectomy Hx of colonoscopy Hx of hammer toe correction Hx of neck surgery Hx of tonsillectomy Social History Social History Alcohol intake: never Patient Tobacco Use Status: Former Tobacco user Years Smoked: 5 Use of substances other than those prescribed or required for medical reasons: No Are you DNR?: No Advance Directives: No Advance Directives Information Provided: No Meds Allergies Allergy/AdvReac Type Severity Reaction Status Date / Time Sulfa (Sulfonamide Allergy Severe Anaphylaxis Verified 12/22/21 09:54 Antibiotics) codeine [CODEINE] Allergy Intermediate GI UPSET Verified 12/22/21 09:54 erythromycin base AdvReac Severe gi upset Verified 12/22/21 09:54 Home Medications Medication Instructions Recorded Confirmed Last Taken Type citalopram 10 mg tablet 10 mg PO DAILY 08/16/20 12/22/21 Unknown History cranberry 400 mg capsule 400 mg PO DAILY 11/22/20 12/22/21 Unknown History docusate sodium 100 mg capsule 100 mg PO DAILY 11/22/20 12/22/21 Unknown History (Colace) estradiol 1 g VAGINAL 2XW g 11/30/21 12/22/21 Unknown History Exam Exam Date and Time: December 23, 2021 1101 Pertinent Lab Results Pertinent Lab Results: Laboratory Tests 08/01/21 12/13/21 08:20 12:50 WBC 5.1 Hgb 14.4 Hct 43.1 Plt Count 258 Sodium 135 Potassium 4.3 Chloride 100 Carbon Dioxide 30 H BUN 16 Creatinine 0.73 Narrative Narrative: Pulmonary function test on 06/24/2020 She has only minimal degree of restrictive pulmonary disorder.? No obstructive disorder and no response to bronchodilator therapy. Assessment and Plan Assessment Anesthesia Assessment: Chart Reviewed Documented by User: Ziyad Henry MD 12/26/21 07:24 PMFSH Past Medical History Medical History Glaucoma Hypercalciuria Osteoporosis Pulmonary fibrosis Vitamin D deficiency Family History Family History Father Lung cancer Mother CVD (cardiovascular disease) Family history of problems with anesthesia: No Surgical History Surgical History History of carpal tunnel surgery Hx of adenoidectomy Hx of colonoscopy Hx of hammer toe correction Hx of neck surgery Hx of tonsillectomy History of Problems with Anesthesia: No Social History Social History Alcohol intake: never Patient Tobacco Use Status: Former Tobacco user Years Smoked: 5 Use of substances other than those prescribed or required for medical reasons: No Are you DNR?: No Advance Directives: No Advance Directives Information Provided: No Meds Allergies Allergy/AdvReac Type Severity Reaction Status Date / Time Sulfa (Sulfonamide Allergy Severe Anaphylaxis Verified 12/22/21 09:54 Antibiotics) codeine [CODEINE] Allergy Intermediate GI UPSET Verified 12/22/21 09:54 erythromycin base AdvReac Severe gi upset Verified 12/22/21 09:54 Home Medications Medication Instructions Recorded Confirmed Last Taken Type citalopram 10 mg tablet 10 mg PO DAILY 08/16/20 12/22/21 Unknown History cranberry 400 mg capsule 400 mg PO DAILY 11/22/20 12/22/21 Unknown History docusate sodium 100 mg capsule 100 mg PO DAILY 11/22/20 12/22/21 Unknown History (Colace) estradiol 1 g VAGINAL 2XW g 11/30/21 12/22/21 Unknown History Assessment and Plan Assessment Anesthesia Assessment: Anesthesia Plan Discussed Final Anesthetic Review Family History of Problems with Anesthesia: No History of Problems with Anesthesia: No NPO: Yes ASA Class: II Final Preanesthetic Review: No Changes in Pt Med Stat, Meds/Allgs Chart Reviewed, Consent Obtained/Reviewed and Anes Risks/Benef Reviewed Patient Risk: Intermediate Procedure Risk: Low Anesthetic Plan Anesthetic Plan: GA and Regional Block Disposition: Standard PACU
--- NOTE | ~2021-12-26 | FL_ITS ---
EXAMINATION: XR FLUOROSCOPY WITH IMAGES CLINICAL INFORMATION: Right distal radius fracture. COMPARISON: Right wrist x-ray 12/20/2020. TECHNIQUE: Fluoroscopy performed by Erica Fry MD Fluoroscopy time: 25.2 seconds DAP: 82648.3 uGy-cm2 Images: 3 FINDINGS: There is a new volar plate and screws transfixing the right distal radius fracture. There is improved anatomic alignment. Ulnar styloid fracture not well appreciated. FL/FL guidance in OR IMPRESSION: ORIF of right distal radius fracture.
[2021-12-26 07:14] VITALS: BMI 19.8
[2021-12-26] MEDS: Scopolamine 1.5 MG PATCH.TD.3 TRANSDERMA (07:36)
[2021-12-26] MEDS: Lactated Ringers 1,000 ML 100 ML IVCONT (07:48)
[2021-12-26 07:56] VITALS: BP 149/63; PULSE 63; RESP 18; TEMP 36.9; O2SAT 97
--- NOTE | 2021-12-26 08:08 | MHC.SHP ---
Pre-Procedural Eval Section A Date of Service: 12/26/21 The patient is an INPATIENT: No Changes since office visit: No Cold of Flu in the past 2 weeks, No New Medical Problems, No Changes in Medication and No Patient answered all questions The History & Physical has been completed within 30 days and I have reviewed it.: Yes Section B Chief Complaint: fx of lower end right radius Allergies: Allergies Allergy/AdvReac Type Severity Reaction Status Date / Time Sulfa (Sulfonamide Allergy Severe Anaphylaxis Verified 12/22/21 09:54 Antibiotics) codeine [CODEINE] Allergy Intermediate GI UPSET Verified 12/22/21 09:54 erythromycin base AdvReac Severe gi upset Verified 12/22/21 09:54 Plan I have reviewed the history and physical and performed a pertinent physical examination on my patient. No changes have occurred unless specified.
--- NOTE | 2021-12-26 08:09 | P.OP_ITS ---
Operative Note Operative Note Date of Service: 12/26/21 Narrative: Operative Note Narrative: Preop diagnosis: 1. Right intra-articular Distal radius fracture Postop diagnosis: Same Procedure: 1. Right Distal radius fracture open reduction internal fixation, intra- articular 2 part Surgeon: Erica Fry MD Anesthesia: Mac plus regional block Findings: 2 part intra-articular distal radius fracture Implants: A 3 hole Accu Med volar locking plate, with 4x 2.3 mm locking pegs/screws, and 3 3.5 mm cortical screws Tourniquet time: 41 minutes EBL: 5.0 ml Specimen: None Drains: None Complications: None Disposition: Brought to the recovery room in stable condition Plan: Follow-up in 10-14 days for wound check, suture removal and postop radiographs The patient will be placed in either a short-arm cast Encouraged no lifting of anything heavier than a cell phone. Please encourage active and passive range of motion of the digits. Follow-up at 4-5 weeks postop for repeat radiographs. Indications: The patient is a 76 year old woman with a right intra- articular distal radius fracture . The risks and benefits of operative treatment, including but not limited to risk of damage to blood vessels, nerves, tendons, infection, recurrence, persistent pain or numbness, incomplete resolution of preoperative symptoms, or need for further surgery were discussed with the patient and they wished to proceed with surgery. Procedure: Once consent was obtained patient was brought back to the operating suite and placed in the operating table in a supine position. A regional block was performed by the anesthesia team. Perioperative antibiotics and anesthesia was administered by the anesthesia team. A tourniquet was applied to the proximal aspect of the right upper extremity and the limb was prepped and draped in a standard surgical fashion. The limb was elevated exsanguinated with Esmarch bandage and the tourniquet inflated to 250 mm of mercury for a total tourniquet time of 41 minutes. The FluoroScan was used throughout the case to assess our reduction, and facilitate implant placement. A gentle closed reduction was 1st performed on the patient's right distal radius fracture. Was assessed radiographically before proceeding with the reduction internal fixation. I then made an 8 cm longitudinal incision over the distal aspect of the flexor carpi radialis tendon. The incision was made through the skin to the subcutaneous tissue using a 15. Blade. Then carefully dissected down to flexor carpi radialis tendon she tenotomy scissors. The FCR tendon sheath was then incised longitudinally using tenotomy scissors under direct visualization. The FCR tendon was then retracted ulnarly. I then made a longitudinal incision in the volar forearm fascia through the floor of FCR tendon sheath using tenotomy scissors under direct visualization. I identified the interval between the radial artery and the flexor tendons. This interval was developed further with my index finger, releasing some of the muscular fibers of the flexor pollicis longus. A dull weatlander retractor was then placed. I then created an ulnarly based flap of the pronator quadratus by releasing the radial and distal edges using a 15. Bl lucina. A Garcia elevator was used to elevate the pronator quadratus from the volar surface of the distal radius. This then revealed to us our distal radius fracture. An open reduction was then performed on our distal radius fracture. I placed a 0.054 K-wire obliquely through the radial styloid retrograde across the fracture and into the shaft for provisional fixation of our fracture. I then placed a short narrow 3 hole Accu Med volar locking plate on the volar surface of the distal radius. I placed a single K-wire through the distal aspect of the plate and into the distal radius. This was assessed using fluoroscopic images. I was satisfied with the placement of our plate. I then placed 4x 2.3 mm locking screws/pegs in the distal aspect of the plate and distal radius by 1st drilling bicortically with a 1.8 mm drill bit, measuring with a depth gauge, and placing the appropriate length locking screws/pegs. The placement of our plate and screws was then assessed again using fluoroscopic images. The once satisfied with the placement of the volar locking plate and screws on the distal aspect of the distal radius, the plate was then reduced to the shaft of the radius. I then placed 3 3.5 mm cortical screws to the proximal aspect of the plate and into the shaft of the radius. This was done by 1st drilling bicortically with a 2.8 mm drill bit, measuring with a depth gauge, and placing the appropriate length screw. The provisional K-wires were removed. Final radiographs were then obtained. The DRUJ was assessed and found to be stable on exam. I was satisfied with our reduction and placement of all implants. At this point the wound was irrigated with normal saline. The pronator quadratus was reduced back over the volar locking plate using some 3-0 Vicryl suture material. The tourniquet was then deflated and hemostasis was obtained with a brief period of local pressure and bipolar monopolar electrocautery. The subcutaneous layer was then reapproximated using some 4-0 Vicryl suture, and the skin edges were reapproximated using some 5 0 Prolene suture. The wound was then infiltrated with some 1% lidocaine with epinephrine postop pain control. A sterile dressing and a short dorsal splint allowing for active flexion and extension of the digits was applied. The patient appears to have tolerated the procedure well and with no complications. All digits were well vascularized conclusion of the case.
[2021-12-26 09:40] VITALS: BP 140/71; PULSE 78; RESP 14; TEMP 36.7; O2SAT 98
[2021-12-26 09:45] VITALS: BP 152/69; PULSE 80; RESP 20; O2SAT 96
[2021-12-26 09:50] VITALS: BP 158/58; PULSE 78; RESP 20; O2SAT 95
[2021-12-26 09:55] VITALS: BP 149/65; PULSE 85; RESP 19; O2SAT 95
[2021-12-26 10:10] VITALS: BP 140/57; PULSE 71; RESP 19; TEMP 36.8; O2SAT 95
--- NOTE | 2021-12-26 10:21 | P.CONAN_ITS ---
[facility] Active Problems Active Problems: All Active Problems (Updated 12/22/21 @ 10:54 by Jyoti Bejarano PA-C) Distal radius fracture, right (Acute) Pulmonary fibrosis (Acute) Vitamin D deficiency (Acute) Hypercalciuria (Acute) Osteoporosis (Acute) Past Medical History Medical History Glaucoma Hypercalciuria Osteoporosis Pulmonary fibrosis Vitamin D deficiency Family History Family History Father Lung cancer Mother CVD (cardiovascular disease) Family history of problems with anesthesia: No Surgical History Surgical History History of carpal tunnel surgery Hx of adenoidectomy Hx of colonoscopy Hx of hammer toe correction Hx of neck surgery Hx of tonsillectomy History of Problems with Anesthesia: No Social History Social History Alcohol intake: never Patient Tobacco Use Status: Former Tobacco user Years Smoked: 5 Use of substances other than those prescribed or required for medical reasons: No Are you DNR?: No Advance Directives: No Advance Directives Information Provided: No Meds Allergies Allergy/AdvReac Type Severity Reaction Status Date / Time Sulfa (Sulfonamide Allergy Severe Anaphylaxis Verified 12/22/21 09:54 Antibiotics) codeine [CODEINE] Allergy Intermediate GI UPSET Verified 12/22/21 09:54 erythromycin base AdvReac Severe gi upset Verified 12/22/21 09:54 Active Medications: Current Medications Fentanyl (Fentanyl Citrate/Pf 100 Mcg/2 Ml Vial) 50 mcg IVPUSH Q5M PRN; Protocol PRN Reason: Pain, Severe (Pain Scale 7-10) Lactated Ringer's (Lr) 1,000 mls @ 100 mls/hr IVCONT .Q10H KAR Last Infusion: 12/26/21 10:05 Dose: Infused Documented by: Ondansetron HCl (Ondansetron Hcl 4 Mg/2 Ml Vial) 4 mg IVPUSH ONCE PRN PRN Reason: Nausea and Vomiting Oxycodone HCl (Oxycodone Hcl Immed Release 5 Mg Tablet) 5 mg PO ONCE PRN PRN Reason: Pain, Severe (Pain Scale 7-10) Home Medications Medication Instructions Recorded Confirmed Last Taken Type citalopram 10 mg tablet 10 mg PO DAILY 08/16/20 12/22/21 Unknown History cranberry 400 mg capsule 400 mg PO DAILY 11/22/20 12/22/21 Unknown History docusate sodium 100 mg capsule 100 mg PO DAILY 11/22/20 12/22/21 Unknown History (Colace) estradiol 1 g VAGINAL 2XW g 11/30/21 12/22/21 Unknown History Exam Exam Date and Time: December 26, 2021 1021 Height,Weight and Vital Signs: Height 4 ft 11 in Weight 44.452 kg Last Vital Signs Temp 98.1 F 12/26/21 09:40 Pulse 85 12/26/21 09:55 Resp 19 12/26/21 09:55 BP 149/65 H 12/26/21 09:55 Pulse Ox 95 12/26/21 09:55 Airway Mallampati Class: II TM Dist: >3cm Neck ROM: Full Partial: Upper and Lower Assessment and Plan Assessment Anesthesia Assessment: Anesthesia Plan Discussed and Chart Reviewed Final Anesthetic Review Family History of Problems with Anesthesia: No History of Problems with Anesthesia: No NPO: Yes ASA Class: II Final Preanesthetic Review: No Changes in Pt Med Stat, Meds/Allgs Chart Reviewed, Consent Obtained/Reviewed and Anes Risks/Benef Reviewed Patient Risk: Intermediate Procedure Risk: Low Anesthetic Plan Anesthetic Plan: GA and Regional Block Disposition: Standard PACU
== END 2021-12-26 11:30 | disposition home or self-care (01) ==
PROVIDERS: PCP Internal Medicine; Visit Provider Orthopaedic Surgery
PROC: (CPT 25608; principal; 2021-12-26 09:10)
DX: S52.571A Other intraarticular fracture of lower end of right radius, initial encounter for closed fracture (principal); W00.0XXA Fall on same level due to ice and snow, initial encounter; Y93.89 Activity, other specified; Y92.251 Museum as the place of occurrence of the external cause; Y99.2 Volunteer activity; M81.0 Age-related osteoporosis without current pathological fracture; E55.9 Vitamin D deficiency, unspecified; J84.10 Pulmonary fibrosis, unspecified; H40.9 Unspecified glaucoma; R82.994 Hypercalciuria; Z79.899 Other long term (current) drug therapy; Z88.2 Allergy status to sulfonamides; Z88.8 Allergy status to other drugs, medicaments and biological substances; Z87.891 Personal history of nicotine dependence
CPT/HCPCS: 25608; C1713; C1769; J0690; J1100; J2250; J2405; J3010

== ENCOUNTER 2022-01-10 10:29 | Outpatient (REF) | payer MEDICARE, SELFPAY ==
--- NOTE | ~2022-01-10 | XR_ITS ---
EXAMINATION: XR WRIST, RIGHT CLINICAL INFORMATION: Right wrist pain. COMPARISON: Most recent right wrist radiographs dated 12/20/2021. TECHNIQUE: PA, oblique, and lateral views of the right wrist. FINDINGS: Distal radial volar stabilization plate with fixation screws. No hardware fracture. No perihardware lucency to suggest ischemia or infection. Improved alignment of the distal radial fracture which is near anatomic. Dorsal new bone/callus formation. Tiny, minimally displaced ulnar styloid fracture. Normal carpal alignment. Triscaphe and 1st carpometacarpal joint space narrowing with marginal osteophytes. XR/XR wrist RT min 3V IMPRESSION: Distal radial fracture in near-anatomic alignment with dorsal new bone/callus formation. Volar stabilization plate without evidence of hardware complication. Tiny ulnar styloid fracture.
== END 2022-01-10 10:30 | disposition home or self-care (01) ==
LOC: HO.HOSX 10:29
PROVIDERS: PCP Internal Medicine; Visit Provider Orthopaedic Surgery
DX: S52.501D Unspecified fracture of the lower end of right radius, subsequent encounter for closed fracture with routine healing (principal); M25.641 Stiffness of right hand, not elsewhere classified
CPT/HCPCS: 29075; 73110; 99212

== ENCOUNTER 2022-01-24 08:07 | Outpatient (REF) | payer MEDICARE, SELFPAY ==
--- NOTE | ~2022-01-24 | XR_ITS ---
EXAMINATION: XR WRIST, RIGHT CLINICAL INFORMATION: Pain. COMPARISON: Previous x-ray 01/10/2022. TECHNIQUE: PA, lateral, and oblique views of the right wrist. FINDINGS: There is a plate and screws transfixing the right distal radius fracture. Orthopedic hardware appears unchanged. Distal radius fracture is unchanged. There may be a small avulsion fracture of the ulnar styloid. The bones are osteopenic. Soft tissues are unremarkable. XR/XR wrist RT min 3V IMPRESSION: No change in right distal radius and ulnar styloid fractures.
== END 2022-01-24 08:08 | disposition home or self-care (01) ==
LOC: HO.HOSX 08:07
PROVIDERS: Visit Provider Physician Assistant
DX: M25.641 Stiffness of right hand, not elsewhere classified (principal); S52.501A Unspecified fracture of the lower end of right radius, initial encounter for closed fracture
CPT/HCPCS: 73110; 99212

== ENCOUNTER 2022-02-21 07:26 | Outpatient (REF) | payer MEDICARE, SELFPAY ==
--- NOTE | ~2022-02-21 | XR_ITS ---
EXAMINATION: XR WRIST, RIGHT CLINICAL INFORMATION: Pain in the wrist. COMPARISON: Multiple prior examinations most recent 01/24/2022. TECHNIQUE: PA, lateral, and oblique views of the right wrist. FINDINGS: Stable postoperative changes with volar plate and screw fixation along the distal radius in the area of the previously noted fracture. The fracture is less conspicuous compared to prior. The alignment is unchanged and appears anatomic or near-anatomic. Small minimally displaced ulnar styloid fracture, unchanged. ADDITIONAL FINDINGS: Mild osteoarthritis at the 1st carpometacarpal joint manifested by small marginal osteophytes and subchondral cystic change. Mild osteoarthritis of the IP joint of the thumb, unchanged. XR/XR wrist RT min 3V IMPRESSION: Postoperative changes and stable alignment of the previously noted distal radius fracture. Evidence of some interval fracture healing since the prior exam.
== END 2022-02-21 07:27 | disposition home or self-care (01) ==
LOC: HO.HOSX 07:26
PROVIDERS: Visit Provider Physician Assistant
DX: S52.501D Unspecified fracture of the lower end of right radius, subsequent encounter for closed fracture with routine healing (principal)
CPT/HCPCS: 73110; 99212

== ENCOUNTER 2022-02-21 14:17 | Outpatient (REF) | payer MEDICARE, SELFPAY ==
--- NOTE | ~2022-02-21 | XR_ITS ---
EXAMINATION: XR chest 2V CLINICAL INFORMATION: Reason for Exam DYSPHAGIA COMPARISON: Chest radiograph 07/22/2018, CT chest 08/13/2019 TECHNIQUE: 2 views of the chest XR/XR chest 2V FINDINGS/IMPRESSION: Similar biapical pleural-parenchymal scarring and chronic left greater than right pleural based reticular opacities most predominant at the bases, which may reflect a degree of underlying fibrosis. No new focal consolidation. No pneumothorax. No pleural effusion. Normal cardiomediastinal silhouette.
== END 2022-02-21 14:18 | disposition home or self-care (01) ==
LOC: HO.XRAY 14:17
PROVIDERS: PCP Internal Medicine; Visit Provider Internal Medicine
DX: R13.10 Dysphagia, unspecified (principal)
CPT/HCPCS: 71046

== ENCOUNTER 2022-03-20 10:34 | Outpatient (REF) | payer MEDICARE, SELFPAY ==
[2022-03-20 13:51] LABS: Alanine Aminotransferase 12 U/L (0-31); Albumin Level 3.8 g/dL (3.5-5.0); Alkaline Phosphatase 54 U/L (39-117); Anion Gap 12 (12-20); Aspartate Amino Transferase 20 U/L (5-31); Bilirubin Total 0.3 mg/dL (0.0-1.0); Blood Urea Nitrogen 15 mg/dL (9-16); Calcium 9.2 mg/dL (8.4-10.2); Carbon Dioxide 26 mmol/L (22-29); Chloride 98 mmol/L (96-108); Estimated Glomerular Filt Rate > 60; Glucose Random 86 mg/dL (60-115); Phosphorus 3.9 mg/dL (2.7-4.5); Sodium 131 mmol/L (135-145); Total Protein 6.8 g/dL (6.5-8.0)
[2022-03-20 14:15] LABS: Vitamin D 25-OH Total 42.7 ng/mL (>30)
[2022-03-26 16:16] LABS: N-Telopeptide 44 (see note); NTXCreaRU 71 mg/dL (20-275)
== END 2022-03-20 10:35 | disposition home or self-care (01) ==
LOC: HO.10HDL 10:34
PROVIDERS: Visit Provider Internal Medicine
DX: M81.0 Age-related osteoporosis without current pathological fracture (principal); E55.9 Vitamin D deficiency, unspecified
CPT/HCPCS: 36415; 80053; 82306; 82523; 84100

== ENCOUNTER 2022-03-22 09:13 | Outpatient (REF) | payer MEDICARE, SELFPAY ==
[2022-03-22 11:03] LABS: Alanine Aminotransferase 13 U/L (0-31); Albumin Level 3.8 g/dL (3.5-5.0); Alkaline Phosphatase 53 U/L (39-117); Anion Gap 13 (12-20); Aspartate Amino Transferase 19 U/L (5-31); Bilirubin Total 0.3 mg/dL (0.0-1.0); Blood Urea Nitrogen 19 mg/dL (9-16); Calcium 9.3 mg/dL (8.4-10.2); Carbon Dioxide 23 mmol/L (22-29); Chloride 101 mmol/L (96-108); Estimated Glomerular Filt Rate > 60; Glucose Random 128 mg/dL (60-115); Phosphorus 3.9 mg/dL (2.7-4.5); Potassium 4.6 mmol/L (3.3-5.1); Sodium 132 mmol/L (135-145)
[2022-03-22 11:25] LABS: Vitamin D 25-OH Total 41.6 ng/mL (>30)
[2022-03-23 10:16] LABS: PTHI 26 pg/mL (16-77)
[2022-03-25 10:31] LABS: Alkaline Phosphatase Bone 10.9 mcg/L (see note)
== END 2022-03-22 09:14 | disposition home or self-care (01) ==
LOC: HO.LAB 09:13
PROVIDERS: PCP Internal Medicine; Visit Provider Internal Medicine
DX: M81.0 Age-related osteoporosis without current pathological fracture (principal); E55.9 Vitamin D deficiency, unspecified
CPT/HCPCS: 36415; 80053; 82306; 83970; 84075; 84100

== ENCOUNTER → 2022-03-27 08:10 | Outpatient (BNVA) | payer MEDICARE, SELFPAY | PROVIDERS: PCP Internal Medicine; Visit Provider Internal Medicine | DX: M81.0 Age-related osteoporosis without current pathological fracture (principal); E55.9 Vitamin D deficiency, unspecified | CPT/HCPCS: Q3014 ==

== ENCOUNTER 2022-03-30 10:13 | Outpatient (REF) | payer MEDICARE, SELFPAY ==
--- NOTE | ~2022-03-30 | FL_ITS ---
EXAMINATION: FL BARIUM SWALLOW CLINICAL INFORMATION: Dysphagia COMPARISON: None TECHNIQUE: Barium swallow examination is performed using fluoroscopic evaluation in addition to multiple fluoroscopic spot views. The patient is imaged both upright and prone and using both thick and thin sulfate along with effervescent granules. Fluoroscopy time: 2.3 minutes DAP: 2.450 Gy-cm2 Images: 104 FINDINGS: Following oral administration of thick barium in upright view, there is abraham laryngeal aspiration on the very first attempt. There is a ventral plate and screw for C4-C5 fusion. The ventral plate and screws are slightly angulated anteriorly along the superior aspect and mildly indenting the cervical esophagus on several views which may be resulting in dysphagia sensation. It is best visualized on lateral view. On oral administration of barium-coated turkey, there is normal propagation of bolus from the oral cavity through the pharynx into the esophagus. There is moderate tension in the valleculae and piriform sinuses which cleared with subsequent swallowing with water. On oral administration of barium tablet, the tablet got stuck in the valleculae and could not be cleared; hence, patient regurgitated the tablet back. The entire thoracic esophagus is otherwise unremarkable. FL/FL barium swallow IMPRESSION: C4-C5 disc fusion with prosthesis and ventral plate which is angulated anteriorly on the cephalad side resulting in mild indentation of the cervical esophagus on administration of thick barium and barium-coated turkey. Patient had some discomfort during the swallowing in this region. But no clear obstruction. There is moderate retention of solid food in the valleculae which cleared with subsequent swallowing with water. The barium tablet was stuck in the valleculae and cleared with regurgitation. There is a abraham laryngeal aspiration on the very first image following oral administration of thick barium.
== END 2022-03-30 10:14 | disposition home or self-care (01) ==
LOC: HO.XRAY 10:13
PROVIDERS: Visit Provider Internal Medicine
DX: R13.10 Dysphagia, unspecified (principal)
CPT/HCPCS: 74220

== ENCOUNTER 2022-04-13 11:00 | Outpatient (RCR) | payer MEDICARE, SELFPAY ==
--- NOTE | 2022-02-10 11:32 | MHC.OT.OEV ---
[address] [phone] F: [phone] Occupational Therapy Evaluation Diagnosis: ORIF R comminuted displaced intra articular fx Date of Onset: 12/20/21 Date of Surgery: 02/23/22 Attending Provider: Erica Fry MD Prescribed Treatment: Eval and payton GARCIA Follow Up Appointment: History of Current Condition: Pt reports a fall on ice . Surgical repair by Dr Fry , pt immob in a sugar tong splint and now in a prefab wrist support. 6 wks ,3 days po Significant Medical History: R CTR Glaucoma, pulmonary fibrosis, Osteoporosis Precautions/Contraindications: Patient Goals: Flexibility without having pain Hand Dominance: Right Observations: Wearing a prefab wrist support QuickDASH Score: 22 ptss Prior Level of Function and Occupation Self Care, Employment, Leisure: Indep in all areas 7 room home Active in community , volunteers garden Living Situation, Family and/or Social Support: Lives alone Good support system , family and friends Current Level of Function and Occupation Self Care, Employment, Leisure: Indep in all areas. Using right hand for most ADL. Difficulty holding a book with right hand Not gardening or driving. Avoiding heavy use with right hand Son has been staying with her to provide assistance and transportation Sleep: WNL Driving: Not driving Vision: Glaucoma Balance: WNL Pain Assessment Pain Score: 3 Pain Scale Used: Numeric (0 - 10) Pain Location and Description: 2-5 right wrist. Achy Aggravating Factors: Right hand/wrist use Alleviating Factors: Skin and Soft Tissue Assessment Skin and Soft Tissue: Atrophy Contracture Comments: Right forearm ms atrophy Right hand mild-mod OA jt changes,, CMC add Right wrist and forearm rotation stiff Nerve assessment Ulnar Nerve: Median Nerve: Radial Nerve: Comments: Sensory Assessment Temperature: Light Touch: WNL Proprioception: Vibration: Comments: Edema Assessment Upper Extremity: Lower Extremity: Comments: Dexterity Assessment Dexterity: WFL Comments: Special Tests Comments: AROM(PROM) Strength Cervical Cervical Flexion: Cervical Extension: Cervical Lateral Flexion: Cervical Rotation: Comments: Shoulder Flexion: Extension: Abduction: Internal Rotation: External Rotation: Comments: Flexion: Extension: Abduction: Internal Rotation: External Rotation: Comments: Elbow Flexion: Extension: Pronation: Supination: Comments: Flexion: Extension: Pronation: R 50 L 45 Supination: R 45 L 65 Comments: Wrist Flexion: R30 L 65 Extension: R 25 L 65 Ulnar Deviation: R 5 L 30 Radial Deviation: R 5 L 10 Comments: Flexion: Extension: Ulnar Deviation: Radial Deviation: Comments: Thumb Thumb CMC Flexion: Thumb MCP Flexion: Thumb IP Flexion: Radial Abduction: Palmar Abduction: [place] (Kapandji 0-10): Comments: WFL OA Digits Index MCP: PIP: DIP: Long MCP: PIP: DIP: Ring MCP: PIP: DIP: Small MCP: PIP: DIP: Comments: WNL Gross Grasp: R 15 L 30 Lateral Pinch: R 5 L 10 Two-Point Pinch: R 4 L 6 Three-Jaw Anthony: R 4 L 7 Comments: Patient Education Primary Language: Barbadian Group Home Manager Required: Current Knowledge: Minimal, needs reinforcement Teaching Method: Demonstration Handouts Verbal Education Needs Identified on Evaluation: Exercise How did patient/family demonstrate learning? Patient demonstrates Patient verbalizes Barriers to Learning: None Readiness for Learning: Accepting Who was educated? Patient Comments: Plan of Care Assessment: Pt is an active 76 yo female with a ho OA, osteoporosis , now 6 wks s/p right DR fx ORIF due to a FOOSH injury Pt presents with dec forearm rotation and wrist ROM and low hand strength She has begun ROM ex and is respecting wrist fx precautions. He son has been assisting her with heavy activity at home and providing transportation She is motivated to regain full pain free use of her right dominant hand to return to driving and gardening...etc STG Duration: 4 wks Short Term Goals: Demo indep with HEP Indep with scar massage R wrist ext to 50 deg R wrist flex to 45 deg R ulnar dev to 20 deg LTG Duration: 4 wks Accounts Payable Lead Goals: Indep with HEP R wrist ext to 60 deg R wrist flex to 50 deg R supination to 65 deg R product planner to > 20 lb Resume all daily activities with modifications as needed Frequency and Duration: The patient will be seen 2x wk x 4 wks Treatment Plan: Therapeutic Exercise Therapeutic Activity Home Exercise Program Patient Education ADL Training Paraffin Fluidotherapy MHP Soft Tissue Mobilization Electronically Signed By: GRACIELA WEN OT, CHT,CLT Reviewed/agree with student documentation: N/A Therapist: Please sign and return to therapist, Thank you for your referral.
--- NOTE | 2022-04-21 13:48 | MHC.OT.DC ---
[address] [phone] F: [phone] Occupational Therapy Discharge Note Provider: Erica Fry MD Diagnosis: ORIF R comminuted displaced DR intra articular fx Date of Surgery: 02/23/22 Date of Evaluation: 02/10/22 Date of Discharge: 04/21/22 Treatments to Date: 13 Cancellations to Date: 0 No Shows to Date: 0 Discharge Status: Independent with HEP Discharge Summary: Wrist stiff with underlying OA . NO change noted over the past few weeks Dec pain, and S+S mild Dequervains . 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 Pain inc with gardening. Will benefit from ergo garden tools, pt considering Pt and her MD agreed to D/C OT due to plateau in improvement. Electronically Signed By: Lolita Akins OT CHT CLT Reviewed/agree with student documentation: N/A Therapist: Please Sign and return to therapist, thank you for your referral.
== END 2022-04-21 13:49 | disposition home or self-care (01) ==
LOC: HO.OT 11:00
PROVIDERS: PCP Internal Medicine; Visit Provider Physician Assistant
DX: S52.501D Unspecified fracture of the lower end of right radius, subsequent encounter for closed fracture with routine healing (principal)
CPT/HCPCS: 29125; 97014; 97033; 97110; 97140; 97165; 97530; 97760

== ENCOUNTER → 2022-04-18 12:50 | Outpatient (BNVA) | payer MEDICARE, SELFPAY | PROVIDERS: PCP Internal Medicine; Visit Provider Physician Assistant | DX: S52.501D Unspecified fracture of the lower end of right radius, subsequent encounter for closed fracture with routine healing (principal) | CPT/HCPCS: 99212 ==

== ENCOUNTER → 2022-05-05 08:48 | Outpatient (BNVA) | payer MEDICARE, SELFPAY | PROVIDERS: PCP Internal Medicine; Visit Provider Nurse Practitioner Family | DX: M54.2 Cervicalgia (principal); M54.81 Occipital neuralgia; M62.838 Other muscle spasm | CPT/HCPCS: 64405; 64450; 99202 ==

== ENCOUNTER → 2022-05-11 16:14 | Outpatient (BNVA) | payer MEDICARE, SELFPAY | PROVIDERS: PCP Internal Medicine; Visit Provider Nurse Practitioner Family | DX: M54.2 Cervicalgia (principal); M47.812 Spondylosis without myelopathy or radiculopathy, cervical region; G89.29 Other chronic pain; M25.511 Pain in right shoulder; M25.512 Pain in left shoulder | CPT/HCPCS: Q3014 ==

== ENCOUNTER 2022-06-01 09:13 | Outpatient (REF) | payer MEDICARE, SELFPAY ==
[2022-06-01 10:30] LABS: Anion Gap 11 (12-20); Blood Urea Nitrogen 19 mg/dL (9-16); Calcium 9.2 mg/dL (8.4-10.2); Carbon Dioxide 28 mmol/L (22-29); Chloride 103 mmol/L (96-108); Estimated Glomerular Filt Rate > 60; Glucose Random 69 mg/dL (60-115); Sodium 137 mmol/L (135-145)
[2022-06-02 11:17] LABS: Calcium (PTHI) 9.2 mg/dL (8.6-10.4); PTHI 19 pg/mL (16-77)
== END 2022-06-01 09:14 | disposition home or self-care (01) ==
LOC: HO.LAB 09:13
PROVIDERS: PCP Internal Medicine; Visit Provider Internal Medicine
DX: M81.0 Age-related osteoporosis without current pathological fracture (principal)
CPT/HCPCS: 36415; 80048; 83970

== ENCOUNTER 2022-06-05 12:21 | Outpatient (REF) | payer MEDICARE, SELFPAY | END 2022-06-05 12:22 | disposition home or self-care (01) | LOC: HO.MDS 12:21 | PROVIDERS: Visit Provider Internal Medicine | DX: M81.0 Age-related osteoporosis without current pathological fracture (principal) | CPT/HCPCS: 96365; J3489 ==

== ENCOUNTER → 2022-06-16 10:19 | Outpatient (BNVA) | payer MEDICARE, SELFPAY | PROVIDERS: PCP Internal Medicine; Visit Provider Internal Medicine | DX: M54.81 Occipital neuralgia (principal); M47.812 Spondylosis without myelopathy or radiculopathy, cervical region | CPT/HCPCS: 99212 ==

== ENCOUNTER 2022-07-27 11:00 | Outpatient (REF) | payer MEDICARE, SELFPAY ==
--- NOTE | ~2022-07-27 | MM_ITS ---
EXAMINATION: MM SCREENING DIGITAL BREAST TOMOSYNTHESIS, BILATERAL CLINICAL INFORMATION: Screening. Asymptomatic. The lifetime risk of breast cancer based on the Tyrer-Cuzick Model is 3%. COMPARISON: Mammography: 06/16/2021; outside mammography 07/12/2020, 03/19/2019 ([facility]). TECHNIQUE: Digital breast tomosynthesis is performed in both the craniocaudal and mediolateral oblique views along with computer-aided detection (CAD). Synthesized 2D images are generated from the tomosynthesis. FINDINGS: The breasts are heterogeneously dense, which may obscure small masses (ACR BI-RADS breast composition Category c). There are no significant masses, abnormal calcifications, or other abnormalities. Breast tissue composition borders on average fibroglandular. Denser tissue composition is in the anterior breasts similar to prior exams. There is no developing density or architectural abnormality. The axilla are unremarkable. MM/MM tomosynthesis screening BI IMPRESSION: No mammographic evidence of malignancy. ASSESSMENT: BI-RADS 1: Negative RECOMMENDATION: Routine annual mammography screening. This patient's information was entered into a reminder system with a target due date for their next mammogram.
== END 2022-07-27 11:01 | disposition home or self-care (01) ==
LOC: HO.MAMMO 11:00
PROVIDERS: PCP Internal Medicine; Visit Provider Internal Medicine
DX: Z12.31 Encounter for screening mammogram for malignant neoplasm of breast (principal)
CPT/HCPCS: 77063; 77067

== ENCOUNTER 2022-08-10 11:26 | Outpatient (REF) | payer MEDICARE, SELFPAY ==
[2022-08-10 11:28] LABS: MANUAL DIFF FLAG NO
[2022-08-10 12:18] LABS: Basophils Percent Auto 0.4 % (0-2); Eosinophils Absolute Auto 0.3 X10*3/uL (0.0-0.4); Eosinophils Percent Auto 3.6 % (0-4); Hematocrit 43.2 % (37.0-47.0); Hemoglobin 14.1 g/dl (12.0-16.0); Imm Gran Abs Auto 0.01 X10*3/uL (0.00-0.03); Imm Gran Pct Auto 0.1 % (0.0-0.4); Lymphocytes Absolute Auto 1.1 X10*3/uL (1.2-4.9); Lymphocytes Percent Auto 15.8 % (20-40); Mean Corpuscular HGB Conc 32.6 g/dl (31.0-35.0); Mean Corpuscular Hemoglobin 29.6 pg (27.0-33.0); Mean Corpuscular Volume 90.6 fL (80.0-98.0); Mean Platelet Volume 11.4 fL (9.4-12.3); Monocytes Absolute Auto 0.7 X10*3/uL (0.1-1.2); Monocytes Percent Auto 10.3 % (2-11); Neutrophils Absolute Auto 4.9 x10*3/uL (2.0-8.3); Neutrophils Percent Auto 69.8 % (45-73); Platelet Count 261 X10*3/uL (160-400); Red Blood Count 4.77 X10*6/uL (4.20-5.50); Red Cell Distribution Width 13.4 % (11.0-16.0)
[2022-08-10 12:20] LABS: Appearance Urine Clear; Color Urine Yellow; Glucose Urine UA Negative (Negative); Leukocyte Esterase Urine Large (3+) (Negative); Nitrite Urine Negative (Negative); Specific Gravity - Urine 1.015 (1.005-1.025); UMIC TRIGGER UA YES; Urine Blood Negative (Negative); Urine Ketones Negative (Negative); Urine Protein Negative (Neg-Trace)
[2022-08-10 12:43] LABS: Bacteria Urine None Seen (None Seen); Hyaline Casts Urine 0-2 /LPF (0-2); RBC Urine 0-2 /HPF (0-2); WBC Urine 0-5 /HPF (0-5)
[2022-08-10 12:47] LABS: Alanine Aminotransferase 13 U/L (0-31); Albumin Level 4.1 g/dL (3.5-5.0); Alkaline Phosphatase 56 U/L (39-117); Anion Gap 16 (12-20); Aspartate Amino Transferase 21 U/L (5-31); Bilirubin Total 0.5 mg/dL (0.0-1.0); Blood Urea Nitrogen 14 mg/dL (9-16); Calcium 9.1 mg/dL (8.4-10.2); Carbon Dioxide 26 mmol/L (22-29); Chloride 100 mmol/L (96-108); Cholesterol 207 mg/dL; Estimated Glomerular Filt Rate > 60; Glucose Fasting 91 mg/dL (60-99); HDL Cholesterol 74 mg/dL; LDL Cholesterol Calculated 124 mg/dl; Potassium 4.6 mmol/L (3.3-5.1); Sodium 137 mmol/L (135-145); Triglycerides 47 mg/dL
[2022-08-10 13:11] LABS: Vitamin D 25-OH Total 49.8 ng/mL (>30)
== END 2022-08-10 11:27 | disposition home or self-care (01) ==
LOC: HO.LNP 11:26
PROVIDERS: Visit Provider Internal Medicine
DX: E78.00 Pure hypercholesterolemia, unspecified (principal); E55.9 Vitamin D deficiency, unspecified
CPT/HCPCS: 80053; 80061; 81001; 82306; 85025

== ENCOUNTER 2022-08-15 14:12 | Outpatient (REF) | payer MEDICARE, SELFPAY ==
--- NOTE | ~2022-08-15 | XR_ITS ---
EXAMINATION: XR CHEST CLINICAL INFORMATION: Aspiration into respiratory tract COMPARISON: X-ray 02/21/2022 TECHNIQUE: 2 views of the chest were obtained. FINDINGS: The lungs are well expanded. Similar appearance of biapical pleural parenchymal scarring. Redemonstrated is reticular opacities in bilateral lung bases, left greater than right, relatively similar to previous. There is patchy/hazy opacity in the right lung base, which could be related to overlapping densities versus developing infiltrates. No effusion, pulmonary edema. No pneumothorax seen. Cervical spine fusion hardware. Mild degeneration the visualized spine. XR/XR chest 2V IMPRESSION: Hazy patchy opacity in the right lung base, could be related to overlapping densities versus developing infiltrate. Consider follow-up radiograph for reassessment. Additional chronic appearing findings, appearing similar as compared to previous, described above.
== END 2022-08-15 14:13 | disposition home or self-care (01) ==
LOC: HO.XRAY 14:12
PROVIDERS: PCP Internal Medicine; Visit Provider Internal Medicine
DX: T17.908D Unspecified foreign body in respiratory tract, part unspecified causing other injury, subsequent encounter (principal); X58.XXXD Exposure to other specified factors, subsequent encounter
CPT/HCPCS: 71046

== ENCOUNTER 2022-08-17 12:00 | Outpatient (RCR) | payer MEDICARE, SELFPAY ==
--- NOTE | 2022-06-29 14:48 | MHC.PT.EP ---
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 She is s/p cervical fusion C4-C5 in Aug 2021. She presents to PT with current impairments in pain, significant ROM limitations throughout cervical spine, soft tissue restrictions, compensatory movements, and impaired posture. She is TTP throughout R UT, levator, cervical paraspinals, and occpital musculature. She is limited functionally by looking down, reading, driving, and gardening. She is a good candidate for skilled PT in order to address current impairments to facilitate return to PLOF. She will be seen 2x/week for 4 weeks and will be reassessed at that time. 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 Manual therapy to restore motion and function. Therapeutic exercise to improve strength and flexibility. Neuromuscular re-education for posture and balance. Therapeutic activities to return to functional activities of daily living. Electronically signed by: Lisa Berrios, PT, DPT Please sign and return to therapist. Thank you for your referral.
--- NOTE | 2022-08-17 14:20 | MHC.PT.DC ---
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 Pt overall has made fair progress with PT. Since SOC, we have trialed exercise, STM, taping, and ultrasound. She has improved cervical ROM since evaluation but continues to have limitations. She has improved her postural awareness and body mechanics throughout the day. She continues to have pain in her R UT>occiput region but reports her symptoms are more manageable. Pt has reached a functional plateau with skilled PT at this time. Pt is I with HEP. Pt is recommended to perform HEP consistently and follow up with MD if pain persists. Pt is being D/C from skilled PT at this time. Electronically signed by: Lisa Berrios, PT, DPT Please sign and return to therapist. Thank you for your referral.
== END 2022-08-17 14:20 | disposition home or self-care (01) ==
LOC: HO.PT 12:00
PROVIDERS: PCP Internal Medicine; Visit Provider Internal Medicine
DX: M47.812 Spondylosis without myelopathy or radiculopathy, cervical region (principal); M54.81 Occipital neuralgia
CPT/HCPCS: 97035; 97110; 97140; 97162

== ENCOUNTER 2022-09-25 09:17 | Outpatient (REF) | payer MEDICARE, SELFPAY ==
[2022-09-25 11:47] LABS: Alanine Aminotransferase 10 U/L (0-31); Albumin Level 3.8 g/dL (3.5-5.0); Alkaline Phosphatase 53 U/L (39-117); Anion Gap 12 (12-20); Aspartate Amino Transferase 18 U/L (5-31); Bilirubin Total 0.5 mg/dL (0.0-1.0); Blood Urea Nitrogen 18 mg/dL (9-16); Calcium 9.4 mg/dL (8.4-10.2); Carbon Dioxide 29 mmol/L (22-29); Chloride 102 mmol/L (96-108); Estimated Glomerular Filt Rate > 60; Glucose Random 78 mg/dL (60-115); Phosphorus 3.6 mg/dL (2.7-4.5); Potassium 4.5 mmol/L (3.3-5.1); Sodium 138 mmol/L (135-145); Total Protein 6.9 g/dL (6.5-8.0)
[2022-09-26 09:11] LABS: PTHI 20 pg/mL (16-77)
[2022-09-29 12:48] LABS: Alkaline Phosphatase Bone 8.4 mcg/L (see note)
[2022-10-01 13:52] LABS: N-Telopeptide 35 (see note); NTXCreaRU 85 mg/dL (20-275)
== END 2022-09-25 09:18 | disposition home or self-care (01) ==
LOC: HO.10HDL 09:17
PROVIDERS: Visit Provider Internal Medicine
DX: M81.0 Age-related osteoporosis without current pathological fracture (principal); E55.9 Vitamin D deficiency, unspecified
CPT/HCPCS: 36415; 80053; 82306; 82523; 83970; 84075; 84100

== ENCOUNTER → 2022-10-02 10:48 | Outpatient (BNVA) | payer MEDICARE, SELFPAY | PROVIDERS: PCP Internal Medicine; Visit Provider Internal Medicine | DX: M81.0 Age-related osteoporosis without current pathological fracture (principal); E55.9 Vitamin D deficiency, unspecified | CPT/HCPCS: 99212 ==

== ENCOUNTER 2022-10-04 14:02 | Outpatient (REF) | payer MEDICARE, SELFPAY ==
--- NOTE | ~2022-10-04 | FL_ITS ---
EXAMINATION: XR BARIUM SWALLOW CLINICAL INFORMATION: Dysphagia COMPARISON: Previous exam March 2022 TECHNIQUE: Fluoroscopy was performed for modified barium swallow performed by the speech and hearing department. Patient was administered liquid barium and various solid media mixed with barium. FINDINGS: There is retention and laryngeal penetration with all liquid and solid media. No aspiration seen. FLUOROSCOPY TIME: 3.5 minutes DOSE AREA PRODUCT: 2.8 Larkin per centimeter squared FL/FL barium swallow modified IMPRESSION: Retention and penetration. No aspiration. See speech and hearing report for detailed findings.
--- NOTE | 2022-10-04 17:24 | MHC.SL.IMP ---
Date of Plan of Treatment: 10/04/22 Onset of Symptoms/Illness: 04/03/21 Date Treatment Started: 10/04/22 Admitting Diagnosis: Past Medical History: Medical History Glaucoma Hypercalciuria Osteoporosis Pulmonary fibrosis Vitamin D deficiency Surgical History History of carpal tunnel surgery History of surgery on wrist Hx of adenoidectomy Hx of colonoscopy Hx of hammer toe correction Hx of neck surgery Hx of tonsillectomy Primary Speech & Language Diagnosis: R13.12 Oropharyngeal Phase Dysphagia Reason for Today's Visit: 84482 Modified Barium Swallow Study Pre-evaluation Dietary Consistencies: Regular Pre-evaluation Liquid Consistency: Thin Pre-evaluation Medication Administration: Whole with Liquid Medical History: [place], [place] Modified Barium Swallow Study Fluoroscopic Evaluation of Swallowing Function CPT Code 60463 Evaluation Year: 2021 Reason for Study: Pt reports choking episodes. Referring Physician: Kendell Vaughn MD Evaluating Clinician: Halina Hood MA, CCC-[employer] Study Number: 1 Patient Name: Tiffanie Friedman Status: Outpatient, Ambulatory Age: 77 Gender: Female MEDICAL HISTORY: Year of Onset or Diagnosis: 2021 Past Medical History: Medical History Glaucoma Hypercalciuria Osteoporosis Pulmonary fibrosis Vitamin D deficiency Surgical History History of carpal tunnel surgery History of surgery on wrist Hx of adenoidectomy Hx of colonoscopy Hx of hammer toe correction Hx of neck surgery Hx of tonsillectomy Current (pre-evaluation) Intake/Diet: Route: PO Diet Grade: Regular Liquid Consistencies: Thin Pain: None reported at time of study SUBJECTIVE: Pt is a 77 year old female referred for MBSS by her PCP, Kendell Vaughn MD, due to pt?s reports of choking episodes. Pt reports that she has episodes of ?aspirating? or ?choking? during meals. Pt expressed that these episodes are ?frightening because sometimes [she] can?t catch her breath? and this ?feels embarrassing? for her at restaurants as well. Pt admitted that she eats fast and has difficulty swallowing pills. Pt reports she does not modify her diet textures at this time. She reported she ?always had a problem swallowing,? but that it seems to have gotten worse after her back surgery a year and a half ago. Pt has hx of neck surgery. She did have a Barium Swallow X-Ray at [facility] in March which showed aspiration, and inability to clear barium tablet from valleculae resulting in regurgitation of the tablet. 08/21/22 Chest X-Ray: ?FINDINGS: The lungs are well expanded. Similar appearance of biapical pleural parenchymal scarring. Redemonstrated is reticular opacities in bilateral lung bases, left greater than right, relatively similar to previous. There is patchy/hazy opacity in the right lung base, which could be related to overlapping densities versus developing infiltrates. No effusion, pulmonary edema. No pneumothorax seen. Cervical spine fusion hardware. Mild degeneration the visualized spine. XR/XR chest 2V IMPRESSION: Hazy patchy opacity in the right lung base, could be related to overlapping densities versus developing infiltrate. Consider follow-up radiograph for reassessment. Additional chronic appearing findings, appearing similar as compared to previous, described above.? -03/30/22 Barium Swallow X-Ray: ?FINDINGS: Following oral administration of thick barium in upright view, there is abraham laryngeal aspiration on the very first attempt. There is a ventral plate and screw for C4-C5 fusion. The ventral plate and screws are slightly angulated anteriorly along the superior aspect and mildly indenting the cervical esophagus on several views which may be resulting in dysphagia sensation. It is best visualized on lateral view. On oral administration of barium-coated turkey, there is normal propagation of bolus from the oral cavity through the pharynx into the esophagus. There is moderate tension in the valleculae and piriform sinuses which cleared with subsequent swallowing with water. On oral administration of barium tablet, the tablet got stuck in the valleculae and could not be cleared; hence, patient regurgitated the tablet back. The entire thoracic esophagus is otherwise unremarkable. FL/FL barium swallow IMPRESSION: C4-C5 disc fusion with prosthesis and ventral plate which is angulated anteriorly on the cephalad side resulting in mild indentation of the cervical esophagus on administration of thick barium and barium-coated turkey. Patient had some discomfort during the swallowing in this region. But no clear obstruction. There is moderate retention of solid food in the valleculae which cleared with subsequent swallowing with water. The barium tablet was stuck in the valleculae and cleared with regurgitation. There is a abraham laryngeal aspiration on the very first image following oral administration of thick barium.? Oral Motor Exam Facial Symmetry: Symmetrical Mouth Occlusion: Normal Oral-Facial Teeth Characteristics: Intact/Normal Oral-Facial Lip Pucker Description: Normal Oral-Facial Smile (Lips) Description: Normal Oral-Facial Puff Cheeks Description: Normal Tongue Size: Normal Tongue Excursion Description: Normal Tongue Range of Movement Description: Normal Tongue Speed of Movement Description: Reduced Tongue Strength of Movement (against opposing pressure): Normal Tongue Movement Characteristics: Normal/Absent Food and Liquid Trials: Oral Impairment: Lip Closure: 0=No labial escape Oral Impairment: Tongue Control During Bolus Hold: 1=Escape to lateral buccal cavity/floor of mouth (FOM) Oral Impairment: Bolus Preparation/Mastication: 0=Timely and efficient chewing and mashing Oral Impairment: Bolus Transport/Lingual Motion: 3=Repetitive/disorganized tongue motion Oral Impairment: Oral Residue: 0=Complete oral clearance Oral Impairment:Initiation of Pharyngeal Swallow: 3=Bolus head in pyriforms Pharyngeal Impairment: Soft Palate Elevation: 0=No bolus between soft palate (SP)/pharyngeal wall (PW) Pharyngeal Impairment: Laryngeal Elevation: 1=Partial thyroid cartilage/arytenoids to epiglottic petiole movement Pharyngeal Impairment: Anterior Hyoid Excursion: 1=Partial anterior movement Pharyngeal Impairment: Epiglottic Movement: 2=No inversion Pharyngeal Impairment: Laryngeal Vestibular Closure:: 1=Incomplete: narrow column air/contrast in laryngeal vestibule Pharyngeal Impairment: Pharyngeal Stripping Wave: 0=Present: complete Pharyngeal Impairment: Pharyngeal Contraction: Did not test Pharyngeal Impairment: Pharyngoesophageal Segment Openin=Partial distention/partial duration: partial obstruction of flow Pharyngeal Impairment: Tongue Base (TB) Retraction: 3=Wide column of contrast/air between TB and posterior PW Pharyngeal Impairment: Pharyngeal Residue: 2=Collection of residue within or on pharyngeal structures Pharyngeal Impairment: Esophageal Clearance Upright Position: Did not test Impressions and Recommendations Clinical Observations: OBJECTIVE: Time-out: performed at 02:45 Evaluation Start: 02:30; Stop: 2:34 Patient Positioning: Standing Viewing Planes: LATERAL ONLY Contrast: MBSImP? Standardized Protocol using commercially prepared, standardized Barium viscosities, including: Varibar? THIN LIQUID (40% w/v, <15 cps) , Varibar? NECTAR (40% w/v, <150-450 cps) , Varibar? THIN HONEY (40% w/v, <800-1800 cps) , 1/2 Shortbread Cookie (1 x1 x.25 ) MBSImP ID: [id number] MBSImP Results: Lip closure for intraoral bolus containment resulted in no labial escape. Tongue control during bolus hold allowed bolus escape to the lateral buccal cavity/floor of mouth. Bolus preparation and mastication resulted in timely and efficient chewing and mashing. Bolus transport/lingual motion was with repetitive/disorganized motion of the tongue. Oral residue was not observed. There was complete oral clearance. Initiation of the pharyngeal swallow occurred when the bolus head was in the pyriform sinuses. Soft palate elevation resulted in no bolus between the soft palate and the pharyngeal wall. Laryngeal elevation was decreased, with partial superior movement of the thyroid cartilage/partial approximation of the arytenoids to the epiglottic petiole. Anterior hyoid excursion demonstrated partial anterior movement. Epiglottic movement resulted in no inversion. Laryngeal vestibular closure was incomplete, with a narrow column of air/contrast noted within the laryngeal vestibule at the height of the swallow. Pharyngeal stripping wave was present and complete. Pharyngeal contraction could not be determined due to logistical reasons not related to physiologic impairment. Pharyngoesophageal segment opening demonstrated partial distension/partial duration, with partial obstruction of bolus flow. Tongue base retraction allowed a wide column of contrast or air between the retracted tongue base and the posterior pharyngeal wall. Pharyngeal residue was a collection of residue within or on pharyngeal structures. Esophageal clearance in the upright position could not be assessed due to logistical reasons not related to physiologic impairment. Oral Impairment Score: 7 Pharyngeal Impairment Score: 11 (absence of score, component 13) Esophageal Impairment Score: --- (absence of score, component 17) Laryngeal Penetration and Aspiration: Penetration was observed in today's study. Honey-thick, Gene Autry-thick, Thin Contrast entered the airway, remained above the vocal folds, and were ejected from the airway. Honey-thick, Gene Autry-thick, Thin Contrast entered the airway, contacted the vocal folds, and were ejected from the airway. ASSESSMENT: Clinician Assessment: This exam was conducted by a multidisciplinary team, which included a speech pathologist, radiologist, and radiologist vacuum technician. Pt was standing for lateral view only. Pt was able to feed herself without any difficulty. She consumed the following liquid and solid consistencies: honey thick liquid barium by cup, nectar thick liquid barium by cup, thin liquid barium by cup, pureed solid (applesauce mixed with barium paste), ground solid (chicken salad mixed with barium paste), regular solid (Mag [employer]one shortbread cookie coated with barium paste). Good lip closure with no anterior loss of bolus. There was escape of bolus to the floor of mouth prior to productive lingual movement. Mastication was timely and efficient. Posterior lingual movements were repetitive and disorganized. Pt demonstrated complete oral clearance. Pharyngeal swallow trigger was delayed, initiated as bolus head reached pyriform sinuses. There was no nasopharyngeal reflux. Laryngeal elevation was incomplete with partial anterior hyoid excursion. There was no epiglottic inversion. Incomplete laryngeal vestibular closure. There was penetration above and to the level of the vocal folds with consumption of honey thick, nectar thick, and thin liquid. Slight increase in penetration with nectar consistency. There was moderate retention mostly in the valleculae, some on the posterior pharyngeal wall, with solid consistencies. At one point there was contrast coating the posterior epiglottis with bite of ground consistency, which cleared with subsequent dry swallows. Mild pooling in the valleculae with thick liquids and trace pooling with thin liquids. Most residuals were cleared with multiple dry swallows. Note what appears to be cervical hardware. Liquid Intake Recommendation: Thin Liquid Intake Strategies: Small Sips, No Straws, Double Swallow Dietary Recommendations: Regular Medication Administration: Crushed with Puree Please contact the pharmacy regarding appropriate crushable or liquid drug formulations that are available whenever modified delivery is recommended. Compensatory Strategies Recommended: Sitting Upright (90 deg), Double Swallow, No Straw, Liquids from Cup, Liquids from Spoon, Small Bites and Sips, Rate of Ingestion Change, Avoid Specific Foods Supervision during eating and or drinking: Intermittent Supervision Recommended Treatments: Pharyngeal Resistive Exer, Compens. Strategy Educat. Recommendation for Speech Therapy: Outpatient Speech Therapy, Modified Barium Swallow Study - Outpatient PLAN: Intake Recommendations: Route: PO Diet Grade: Regular Liquid Consistencies: Thin Post-Study Functional Oral Intake Scale (FOIS): 6- Total oral intake with no special preparation, but must avoid specific foods or liquid items This exam revealed penetration with intake of thin and thickened liquid. There was no evidence of aspiration. Moderate pharyngeal retention with solid consistencies. Presence of penetration does put pt at risk for aspiration. Recommend following aspiration precautions and strategies to promote pharyngeal clearance: -Upright 90 degree position during PO intake and for at least 45 minutes afterwards -Small bites of food -Moisten food with sauces and gravies -Chew food well -After each bite, swallow an additional 2-3 times before taking the next bite -Avoid mixed consistencies (i.e. soups, cereals) and sticky textures -Take small sips, one sip at a time -After each sip, swallow an additional 2-3 times before taking another sip -Avoid ?chugging? liquids -Avoid the use of straws -Oral care routine daily (before first meal and after each subsequent meal) [employer] discussed these strategies with the pt after the exam. Recommend 10 weekly visits with a speech pathologist for individualized dysphagia treatment. Suggested Referrals: The patient might benefit from a referral to: Neurology, Speech Pathology Therapy Recommendations: Therapy will be continued Prognosis for Improvement: The prognosis for the patient to meet nutritional needs by mouth is good based on degree of impairment, stimulability for treatment, level of motivation. Chcf Goals: ? The patient will demonstrate improved swallowing function via repeat clinical evaluation, videoendoscopy/videofluoroscopy and/or patient self-rating scores. ? The patient and/or family will participate in further education for swallowing goals. Short Term Goals: ? Diet ? Guidelines - The patient will comply with/recall the following guidelines/strategies with no cuing: Bolus Volume Change, Rate of Ingestion Change, Additional Swallow(s) per Bolus. ? Independent Home Exercise - The patient will perform 10 repetitions of the Effortful Swallow, Aaron Maneuver, Shaker Head Lifts, Carolyn Maneuver 2 times a day with 100% accuracy and minimal cuing as part of a home exercise program. ? Structured Therapy - The patient will demonstrate 100% accuracy and require minimal cuing in structured swallowing therapy with the [employer] using the following exercises/therapy approaches and therapy assisted devices: Effortful Swallow, Aaron Maneuver, Shaker Head Lifts, Carolyn Maneuver, . ? Education - The patient will verbalize/demonstrate understanding of the results of this evaluation, the above recommendations, and the swallowing guidelines. Frequency/Duration: Date Range for Service Requested: Timeline to reassess: 3 months Clinician - Supplemental, Miscellaneous Communication: It is important to note MBSS objective studies are snapshots in time and Patient function might vary with factors such as time of day or concomitant medical conditions. For this reason, the final treatment plan for this patient should rest with their medical care team. Additional recommendations should be considered with the totality of the Patient in mind. Thank for the opportunity to participate in the care of this patient. If you have any questions about the content of this report, please contact the Speech [facility] at [facility]. Education: Education regarding findings from today's study and plans for therapy were provided to Patient only through Verbal Instruction. Understanding was expressed by the Patient only. Chief Mate Clinician/Clinical Fellow: No Supervisory Statement: N/A Speech Language Pathologist: Halina Hood M.A., CCC-[employer]
== END 2022-10-04 14:03 | disposition home or self-care (01) ==
LOC: HO.XRAY 14:02
PROVIDERS: Visit Provider Internal Medicine
DX: R13.12 Dysphagia, oropharyngeal phase (principal)
CPT/HCPCS: 74230; 92611

== ENCOUNTER 2022-10-11 09:21 | Outpatient (REF) | payer MEDICARE, SELFPAY ==
--- NOTE | ~2022-10-11 | XR_ITS ---
EXAMINATION: XR CHEST CLINICAL INFORMATION: Abnormal chest x-ray COMPARISON: Previous chest x-rays most recent August [address] scans most recent August 2019 TECHNIQUE: 2 views of the chest were obtained. FINDINGS: The cardiac and mediastinal contours are stable. There is biapical pleural thickening, left greater than right. This is not appreciably changed from most recent exam August 2022 and appears increased from older exams from 2017 and 2018. There are increased peripheral reticular markings suggestive of interstitial lung disease. No evidence of pneumonia or acute alveolitis is seen. There is no pleural effusion or pneumothorax. There are postsurgical changes to the cervical spine. XR/XR chest 2V IMPRESSION: Increased peripheral interstitial markings suggestive of interstitial lung disease. No evidence of acute alveolitis or pneumonia.
== END 2022-10-11 09:22 | disposition home or self-care (01) ==
LOC: HO.XRAY 09:21
PROVIDERS: PCP Internal Medicine; Visit Provider Internal Medicine
DX: R93.89 Abnormal findings on diagnostic imaging of other specified body structures (principal)
CPT/HCPCS: 71046

== ENCOUNTER → 2022-12-05 11:25 | Outpatient (BNVA) | payer MEDICARE, SELFPAY | PROVIDERS: PCP Internal Medicine; Visit Provider Internal Medicine | DX: J84.10 Pulmonary fibrosis, unspecified (principal) | CPT/HCPCS: 99212 ==

== ENCOUNTER 2023-01-04 11:00 | Outpatient (RCR) | payer MEDICARE, SELFPAY | END 2023-01-04 14:44 | disposition home or self-care (01) | LOC: HO.SH 11:00 | PROVIDERS: Visit Provider Internal Medicine | DX: R13.12 Dysphagia, oropharyngeal phase (principal) | CPT/HCPCS: 92526 ==

== ENCOUNTER → 2023-01-22 10:09 | Outpatient (REF) | payer MEDICARE, SELFPAY ==
--- NOTE | 2023-01-22 10:15 | CA_ITS ---
Acquisition Time: 2023-01-22 10:27:24 Total Exercise Time: 00:03:20 Test Indications: left upper arm pain Medications: Protocol: DIDI Max HR: 127 BPM 90% of Pred: 141 BPM Max BP: 130/068 mmHG Max Work Load: 4.6 METS Exercise stress test with exercise 3 min 20 sec of Didi protocol, achieving 90% MPHR, with request to stop due to fatigue and mild sob, no chest or arm discomfort, with one atrial triplet at baseline and isolated PACs during test, with normotensive response to exercise, without EKG changes meeting criteria for ischemia. In recovery her breathing normalized. Test reviewed with Dr Maldonado. Referred By: Kendell Vaughn Overread By: HAL ANDREW
== END ==
LOC: HO.CARD 10:09
PROVIDERS: Visit Provider Internal Medicine
DX: M79.602 Pain in left arm (principal)
CPT/HCPCS: 93017

== ENCOUNTER 2023-01-24 14:21 | Outpatient (REF) | payer MEDICARE, SELFPAY ==
--- NOTE | ~2023-01-24 | FL_ITS ---
EXAMINATION: FL MODIFIED BARIUM SWALLOW CLINICAL INFORMATION: Dysphagia. Follow-up COMPARISON: Barium swallow 10/04/2022 and 03/30/2022 TECHNIQUE: Modified barium swallow examination is performed with imaging in the lateral view and the presence of the speech pathologist using a variety of barium consistencies as well as barium pill. The exam is performed with fluoroscopic evaluation, videofluoroscopy, and some fluoroscopic spot views. Fluoroscopy time: 3.0 minutes DAP: 0.541 Gycm2 Fluoroscopic spot images: 5 FINDINGS: There is good oral control. No nasopharyngeal penetration. With thinner barium consistencies, there is some undercoating of the epiglottis during swallowing but no laryngeal penetration or aspiration. This represents improvement from prior exam 03/30/2022 and 10/04/2022. With thicker barium consistencies, there is posterior lingual escape with minor pooling of contrast in the vallecula prior to swallowing. There is retention of contrast in the vallecula with chicken salad consistency after swallowing. Challenge with barium pill shows the pill to reside in the vallecula without ability to otherwise swallow. Pill is regurgitated successfully after several attempts. See speech pathologist report for further assessment and recommendation. FL/FL barium swallow modified IMPRESSION: -No laryngeal penetration or aspiration representing improvement from prior studies. -Undercoating of epiglottis during swallowing with thinner barium consistencies. -Posterior lingual escape with pooling of contrast in vallecular with thicker barium consistencies. -Retention of contrast in vallecular with chicken solid consistency after swallowing. -Barium pill resides in vallecula without ability to successfully swallow. -See speech pathologist report for further assessment and recommendation.
--- NOTE | 2023-01-25 17:18 | MHC.SL.IMP ---
Date of Plan of Treatment: 10/04/22 Onset of Symptoms/Illness: 03/30/22 Date Treatment Started: 10/04/22 Admitting Diagnosis: Medical History Glaucoma Hypercalciuria Osteoporosis Pulmonary fibrosis Vitamin D deficiency Surgical History History of carpal tunnel surgery History of surgery on wrist Hx of adenoidectomy Hx of colonoscopy Hx of hammer toe correction Hx of neck surgery Hx of tonsillectomy Primary Speech & Language Diagnosis: R13.12 Oropharyngeal Phase Dysphagia Reason for Today's Visit: 38269 Modified Barium Swallow Study Pre-evaluation Dietary Consistencies: Regular Pre-evaluation Liquid Consistency: Thin Pre-evaluation Medication Administration: Crushed with Puree Medical History: Modified Barium Swallow Study Fluoroscopic Evaluation of Swallowing Function CPT Code 63666 Evaluation Year: 2022 Reason for Study: Hx of dysphagia Referring Physician: Kendell Vaughn MD Evaluating Clinician: Halina Hood MA, CCC-SWITCH COUPLER Study Number: 1 Patient Name: Tiffanie Friedman Status: Outpatient, Ambulatory Age: 77 Gender: Female Medical History Medical History Glaucoma Hypercalciuria Osteoporosis Pulmonary fibrosis Vitamin D deficiency Surgical History History of carpal tunnel surgery History of surgery on wrist Hx of adenoidectomy Hx of colonoscopy Hx of hammer toe correction Hx of neck surgery Hx of tonsillectomy Current (pre-evaluation) Intake/Diet: Route: PO Diet Grade: Regular Liquid Consistencies: Thin Pre-Study Functional Oral Intake Scale (FOIS): 6- Total oral intake with no special preparation, but must avoid specific foods or liquid items Pain: None reported at time of study SUBJECTIVE: Pt is a 77 year old female referred for a repeat-MBSS by her PCP, Kendell Vaughn MD. Pt did have a Barium Swallow X-Ray at [facility] on 03/30/22 which showed abraham laryngeal aspiration following oral administration of thick barium, and inability to clear barium tablet from valleculae resulting in regurgitation of the tablet. On the exam, the radiologist also noted a ventral plate and screw for C4-C5 fusion, which appeared slightly angulated anteriorly along the superior aspect and mildly indenting the cervical esophagus. Thus, pt was referred for a modified barium swallow study (MBSS) to further assess the extent of pt?s dysphagia. Pt?s initial MBSS on 10/04/22 showed laryngeal penetration with intake of thin and thickened liquid; moderate pharyngeal retention with solid consistencies. Pt attended 7 weekly visits with a speech pathologist for individualized dysphagia treatment. Treatment targeted pharyngeal strengthening exercises and strategies for improved pharyngeal clearance. Pt is here today for a repeat-MBSS to assess the progress she has made and to provide further recommendations related to her diet textures and eating strategies. Pt stated that she feels her swallowing has improved. She reported she ?does not cough as much? during meals, and acknowledges she ?still needs to remind herself to eat and drink slowly.? Pt reports difficulties with grainy textures, dry crumbly foods, and shredded meats. Oral Motor Exam Facial Symmetry: Symmetrical Mouth Occlusion: Normal Oral-Facial Teeth Characteristics: Intact/Normal Oral-Facial Lip Pucker Description: Normal Oral-Facial Smile (Lips) Description: Normal Oral-Facial Puff Cheeks Description: Normal Tongue Size: Normal Tongue Excursion Description: Normal Tongue Range of Movement Description: Reduced Tongue Strength of Movement (against opposing pressure): Normal Tongue Movement Characteristics: Normal/Absent Is patient able to manage secretions?: Yes Is patient able to produce volitional cough?: Yes Food and Liquid Trials: Oral Impairment: Lip Closure: Did not test Oral Impairment: Tongue Control During Bolus Hold: 1=Escape to lateral buccal cavity/floor of mouth (FOM) Oral Impairment: Bolus Preparation/Mastication: 1=Slow prolonged chewing/mashing with complete re-collection Oral Impairment: Bolus Transport/Lingual Motion: 3=Repetitive/disorganized tongue motion Oral Impairment: Oral Residue: 1=Trace residue lining oral structures Oral Impairment:Initiation of Pharyngeal Swallow: 2=Bolus head at posterior laryngeal surface of epiglottis Pharyngeal Impairment: Soft Palate Elevation: 0=No bolus between soft palate (SP)/pharyngeal wall (PW) Pharyngeal Impairment: Laryngeal Elevation: 1=Partial thyroid cartilage/arytenoids to epiglottic petiole movement Pharyngeal Impairment: Anterior Hyoid Excursion: 1=Partial anterior movement Pharyngeal Impairment: Epiglottic Movement: 2=No inversion Pharyngeal Impairment: Laryngeal Vestibular Closure:: 1=Incomplete: narrow column air/contrast in laryngeal vestibule Pharyngeal Impairment: Pharyngeal Stripping Wave: 0=Present: complete Pharyngeal Impairment: Pharyngeal Contraction: Did not test Pharyngeal Impairment: Pharyngoesophageal Segment Openin=Complete distension and complete duration: no obstruction of flow Pharyngeal Impairment: Tongue Base (TB) Retraction: 3=Wide column of contrast/air between TB and posterior PW Pharyngeal Impairment: Pharyngeal Residue: 2=Collection of residue within or on pharyngeal structures Pharyngeal Impairment: Esophageal Clearance Upright Position: Did not test Impressions and Recommendations Clinical Observations: OBJECTIVE: Time-out: performed at 02:45 Evaluation Start: 02:30; Stop: 2:36 Patient Positioning: Seated 70-90 degrees Viewing Planes: LATERAL ONLY Contrast: MBSImP? Standardized Protocol using commercially prepared, standardized Barium viscosities, including: Varibar? THIN LIQUID (40% w/v, <15 cps) , Varibar? NECTAR (40% w/v, <150-450 cps) , Varibar? THIN HONEY (40% w/v, <800-1800 cps) , 1/2 Shortbread Cookie (1 x1 x.25 ) MBSImP ID: [id number] MBSImP Results: Lip closure for intraoral bolus containment could not be assessed due to logistical reasons not related to physiologic impairment. Tongue control during bolus hold allowed bolus escape to the lateral buccal cavity/floor of mouth. Bolus preparation and mastication resulted in slow, prolonged chewing/mashing but with complete re-collection. Bolus transport/lingual motion was with repetitive/disorganized motion of the tongue. Oral residue was a trace, lining oral structures. Initiation of the pharyngeal swallow occurred as the bolus head was at the posterior laryngeal surface of the epiglottis. Soft palate elevation resulted in no bolus between the soft palate and the pharyngeal wall. Laryngeal elevation was decreased, with partial superior movement of the thyroid cartilage/partial approximation of the arytenoids to the epiglottic petiole. Anterior hyoid excursion demonstrated partial anterior movement. Epiglottic movement resulted in no inversion. Laryngeal vestibular closure was incomplete, with a narrow column of air/contrast noted within the laryngeal vestibule at the height of the swallow. Pharyngeal stripping wave was present and complete. Pharyngeal contraction could not be determined due to logistical reasons not related to physiologic impairment. Pharyngoesophageal segment opening was completely distended for complete duration with no obstruction of bolus flow. Tongue base retraction allowed a wide column of contrast or air between the retracted tongue base and the posterior pharyngeal wall. Pharyngeal residue was a collection of residue within or on pharyngeal structures. Esophageal clearance in the upright position could not be assessed due to logistical reasons not related to physiologic impairment. Oral Impairment Score: 7 (absence of score, component 1) Pharyngeal Impairment Score: 10 (absence of score, component 13) Esophageal Impairment Score: --- (absence of score, component 17) Laryngeal Penetration and Aspiration: Penetration was observed in today's study. [place]-thick, Thin Contrast entered the airway, remained above the vocal folds, and were ejected from the airway. ASSESSMENT: Clinician Assessment: This exam was conducted by a multidisciplinary team, which included a speech pathologist, radiologist, and radiologist pharmaceutical development technician. Pt was sitting upright at 90 degree angle for lateral view only. Pt was able to feed herself without any difficulty. She consumed the following liquid and solid consistencies: thin liquid barium by cup, nectar thick liquid barium by cup, honey thick liquid barium by cup, pureed solid (applesauce mixed with barium paste), ground solid (chicken salad mixed with barium paste), regular solid ([place] shortbread cookie coated with barium paste), whole barium pill tablet with sips of water by cup. There was escape of bolus to the floor of mouth prior to productive lingual movement. Mastication was mildly prolonged, but with good oral recollection. Trace lingual residue subsequently cleared. Posterior lingual movements were repetitive, at times slowed. Pharyngeal swallow trigger was initiated as the bolus head reached the posterior laryngeal surface of the epiglottis. There was no nasopharyngeal reflux. Laryngeal elevation was incomplete with partial anterior hyoid excursion and no epiglottic inversion. Incomplete laryngeal vestibular closure resulting in episodes of flash penetration with trials of thin liquid and nectar thick liquid. With trials of thin and nectar thick consistencies, a trace amount of contrast coated the epiglottis and entered the airway above the vocal folds, then immediately and spontaneously ejected. There was mild to moderate pharyngeal retention mostly in the valleculae, trace residuals in the pyriform sinuses and on the posterior pharyngeal wall, with solid consistencies. Mild pooling in the valleculae with thick liquids and trace pooling with thin liquids. Residuals were cleared with multiple dry swallows. Pt swallowed a barium pill tablet with sips of water. On multiple attempts, the barium pill tablet got lodged in the valleculae, resulting in pt regurgitating the pill back into her mouth. Pt attempted to swallow the pill whole with multiple sips of water and with a bite of applesauce, but was unable to do so. No evidence of aspiration with intake of solids and liquids during this exam. Liquid Intake Recommendation: Thin Liquid Intake Strategies: Small Sips, No Straws, Double Swallow Dietary Recommendations: Regular Medication Administration: Crushed with Puree Please contact the pharmacy regarding appropriate crushable or liquid drug formulations that are available whenever modified delivery is recommended. Compensatory Strategies Recommended: Sitting Upright (90 deg), Double Swallow, No Straw, Small Bites and Sips, Rate of Ingestion Change, Avoid Specific Foods Supervision during eating and or drinking: None Needed Recommendation for Speech Therapy: Text Comment: Intake Recommendations: Route: PO Diet Grade: Regular Liquid Consistencies: Thin Post-Study Functional Oral Intake Scale (FOIS): 6- Total oral intake with no special preparation, but must avoid specific foods or liquid items This exam revealed improvements in pt?s swallow function. Less penetration and improved pharyngeal clearance as compared to last exam 10/04/22. There was no evidence of aspiration. Recommend pt continue with the following aspiration precautions and strategies to promote pharyngeal clearance: -Upright 90 degree position during PO intake and for at least 45 minutes afterwards -Small bites of food -Moisten food and blend well with thick sauces and gravies -Chew food well -After each bite, swallow an additional 2-3 times before taking the next bite -Avoid mixed consistencies (i.e. soups, cereals), sticky textures, nuts, and dry crumbly/crunchy foods -Take small sips, one sip at a time -Double swallow with sips of liquid -Avoid ?chugging? liquids -Avoid the use of straws SWITCH COUPLER reviewed these strategies with the pt after the exam. Pt verbalized understanding. Further ST intervention is no longer warranted at this time. Recommend pt to continue monitoring her dysphagia. If there are any changes or worsening of symptoms, contact PCP, at which point a repeat exam may be warranted. Therapy Recommendations: Therapy will be discontinued Prognosis for Improvement: The prognosis for the patient to meet nutritional needs by mouth is good based on degree of impairment. Clinician - Supplemental, Miscellaneous Communication: It is important to note MBSS objective studies are snapshots in time and Patient function might vary with factors such as time of day or concomitant medical conditions. For this reason, the final treatment plan for this patient should rest with their medical care team. Additional recommendations should be considered with the totality of the Patient in mind. Thank for the opportunity to participate in the care of this patient. If you have any questions about the content of this report, please contact the [facility] at [facility]. Education: Education regarding findings from today's study and plans for therapy were provided to Patient only through Verbal Instruction. Understanding was expressed by the Patient only. Edging Catcher Clinician/Clinical Fellow: No Supervisory Statement: N/A Speech Language Pathologist: Halina Hood M.A., CCC-SWITCH COUPLER
== END 2023-01-24 14:22 | disposition home or self-care (01) ==
LOC: HO.XRAY 14:21
PROVIDERS: Visit Provider Internal Medicine
DX: R13.10 Dysphagia, unspecified (principal)
CPT/HCPCS: 74230; 92611

== ENCOUNTER 2023-02-23 12:46 | Outpatient (REF) | payer MEDICARE, SELFPAY ==
--- NOTE | ~2023-02-23 | XR_ITS ---
EXAMINATION: XR HIP, RIGHT CLINICAL INFORMATION: Pain COMPARISON: None available. TECHNIQUE: Two views of the right hip. FINDINGS: Mild degenerative changes of the hip with acetabular spurring. No acute fracture or dislocation. Moderate degenerative changes of the pubic symphysis with loss of joint space. Desiccated stool within the rectum. Soft tissues are otherwise unremarkable. XR/XR hip RT min 2V IMPRESSION: 1. Mild degenerative changes of the hip with acetabular spurring. 2. Moderate degenerative changes of the pubic symphysis with loss of joint space.
== END 2023-02-23 12:47 | disposition home or self-care (01) ==
LOC: HO.XRAY 12:46
PROVIDERS: PCP Internal Medicine; Visit Provider Internal Medicine
DX: M25.551 Pain in right hip (principal)
CPT/HCPCS: 73502

== ENCOUNTER 2023-03-19 07:55 | Outpatient (REF) | payer MEDICARE, SELFPAY ==
[2023-03-19 11:14] LABS: Alanine Aminotransferase 14 U/L (0-31); Albumin Level 3.7 g/dL (3.5-5.0); Alkaline Phosphatase 57 U/L (39-117); Anion Gap 10 (12-20); Aspartate Amino Transferase 20 U/L (5-31); Bilirubin Total 0.5 mg/dL (0.0-1.0); Blood Urea Nitrogen 17 mg/dL (9-16); Calcium 8.9 mg/dL (8.4-10.2); Carbon Dioxide 25 mmol/L (22-29); Chloride 107 mmol/L (96-108); Estimated Glomerular Filt Rate > 60; Glucose Random 114 mg/dL (60-115); Potassium 3.8 mmol/L (3.3-5.1); Sodium 138 mmol/L (135-145); Total Protein 6.6 g/dL (6.5-8.0)
[2023-03-19 11:20] LABS: Vitamin D 25-OH Total 52.7 ng/mL (>30)
[2023-03-21 16:19] LABS: Calcium (PTHI) 8.9 mg/dL (8.6-10.4); PTHI 20 pg/mL (16-77)
[2023-03-24 20:44] LABS: Alkaline Phosphatase Bone 10.3 mcg/L (see note)
[2023-03-27 08:34] LABS: N-Telopeptide 42 (see note); NTXCreaRU 92 mg/dL (20-275)
== END 2023-03-19 07:56 | disposition home or self-care (01) ==
LOC: HO.10HDL 07:55
PROVIDERS: Visit Provider Internal Medicine
DX: M81.0 Age-related osteoporosis without current pathological fracture (principal); E55.9 Vitamin D deficiency, unspecified
CPT/HCPCS: 36415; 80053; 82306; 82523; 83970; 84075; 84100

== ENCOUNTER → 2023-03-26 10:26 | Outpatient (BNVA) | payer MEDICARE, SELFPAY | PROVIDERS: PCP Internal Medicine; Visit Provider Internal Medicine | DX: M81.0 Age-related osteoporosis without current pathological fracture (principal); E55.9 Vitamin D deficiency, unspecified | CPT/HCPCS: 99212 ==

== ENCOUNTER → 2023-04-19 11:02 | Outpatient (BNVA) | payer MEDICARE, SELFPAY | PROVIDERS: PCP Internal Medicine; Referring Provider Internal Medicine; Visit Provider Surgery | DX: K40.90 Unilateral inguinal hernia, without obstruction or gangrene, not specified as recurrent (principal) | CPT/HCPCS: 99202 ==

== ENCOUNTER 2023-05-25 12:38 | Emergency (ER) | payer MEDICARE, SELFPAY ==
--- NOTE | ~2023-05-25 | XR_ITS ---
EXAMINATION: XR CHEST CLINICAL INFORMATION: Shortness of breath. Chest pain. COMPARISON: 10/11/2022 TECHNIQUE: 2 views of the chest were obtained. FINDINGS: Biapical pleural thickening. Hyperexpanded lungs. Coarse interstitial markings. No acute consolidation. No significant pleural effusion. Cardiac silhouette is unchanged. XR/XR chest 2V IMPRESSION: No acute abnormality.
--- NOTE | 2023-05-25 12:39 | ECG_ITS ---
Test Reason : SYMTOMATIC BRADYCARDIA Blood Pressure : / mmHG Vent. Rate : 061 BPM Atrial Rate : 061 BPM P-R Int : 178 ms QRS Dur : 078 ms QT Int : 430 ms P-R-T Axes : 075 -44 070 degrees QTc Int : 432 ms Normal sinus rhythm Left axis deviation Abnormal ECG When compared with ECG of 09-FEB-2020 11:04, No significant change was found Referred By: Rae Ortiz Electronically Signed By:ROGELIO FREED MD
[2023-05-25 13:15] VITALS: BP 140/71; PULSE 59; RESP 16; TEMP 36.6; O2SAT 96; BMI 18.8
--- NOTE | 2023-05-25 13:15 | ED.CHESTPAIN ---
HPI - Chest Pain General Chief Complaint: Chest Pain Stated Complaint: pt st having a heart attack Related Data Home Medications Medication Instructions Recorded Confirmed cranberry 400 mg capsule 400 mg PO DAILY 11/22/20 04/19/23 docusate sodium 100 mg capsule 100 mg PO DAILY 11/22/20 04/19/23 (Colace) estradiol 0.01% (0.1 mg/gram) 1 g vaginal 2XW 11/30/21 04/19/23 vaginal cream omeprazole 20 mg capsule,delayed 20 mg PO DAILY PRN 06/16/22 04/19/23 release zoledronic acid 5 mg/100 mL in IV 06/16/22 03/26/23 mannitol 5 %-water intravenous piggybck (Reclast) albuterol sulfate 90 mcg/actuation 0 mcg inhalation 12/05/22 04/19/23 aerosol inhaler citalopram 10 mg tablet 10 mg PO DAILY PRN 12/05/22 03/26/23 ropinirole 0.5 mg tablet 0.5 mg PO BEDTIME 03/26/23 03/26/23 Previous Rx's Medication Instructions Recorded cholecalciferol (vitamin D3) 25 25 mcg PO DAILY 30 days #30 caps 12/20/22 mcg (1,000 unit) capsule calcium citrate 315 mg-vitamin D3 1 tab PO DAILY 30 days #90 tabs 04/23/23 5 mcg (200 unit) tablet Allergies Allergy/AdvReac Type Severity Reaction Status Date / Time Sulfa (Sulfonamide Allergy Severe Anaphylaxis Verified 05/26/23 07:56 Antibiotics) codeine [CODEINE] Allergy Intermediate GI UPSET Verified 05/26/23 07:56 erythromycin base AdvReac Severe gi upset Verified 05/26/23 07:56 [facility] Past Medical History Medical History Glaucoma Hypercalciuria Osteoporosis Pulmonary fibrosis Vitamin D deficiency Surgical History History of carpal tunnel surgery History of endoscopy History of surgery on wrist Hx of adenoidectomy Hx of colonoscopy Hx of hammer toe correction Hx of neck surgery Hx of tonsillectomy Family History Family History Father Lung cancer Mother CVD (cardiovascular disease) Social History Social History Household Members: None Alcohol intake: never Patient Tobacco Use Status: Former Tobacco user Years Smoked: 5 Advance Directives: No Advance Directives Information Provided: Yes Physical Exam Vital Signs: Vital Signs: Last Vital Signs Temp 97.8 F 05/25/23 13:15 Pulse 59 05/25/23 13:15 Resp 16 05/25/23 13:15 BP 140/71 H 05/25/23 13:15 Pulse Ox 96 05/25/23 13:15 O2 Del Method Room Air 05/25/23 13:15 BMI result Body Mass Index 18.8 Course Course Course Narrative: RME: 77yo F w/PMHx Pulmonary fibrosis, c/o CP radiating to LUE x weeks worsening over the past few days w/ assoc SOB. SOB worse on exertion. Denies taking AC or pedal edema Well appearing, no pedal edema, VSS EKG, labs, CXR, COVID ordered Full HPI, ROS and PE to be performed by primary ED provider. Medical Decision Making Lab Data 05/25/23 14:10 05/25/23 14:10 Labs: Lab Results 05/25/23 05/25/23 05/25/23 Range/Units 14:10 14:10 14:10 WBC 4.8 (4.8-10.8) X10*3/uL RBC 4.53 (4.20-5.50) X10*6/uL Hgb 13.3 (12.0-16.0) g/dl Hct 39.4 (37.0-47.0) % MCV 87.0 (80.0-98.0) fL MCH 29.4 (27.0-33.0) pg MCHC 33.8 (31.0-35.0) g/dl RDW 13.1 (11.0-16.0) % Plt Count 237 (160-400) X10*3/uL MPV 10.8 (9.4-12.3) fL Immature Gran % (Auto) 0.2 (0.0-0.4) % Neut % (Auto) 59.6 (45-73) % Lymph % (Auto) 27.3 (20-40) % [place] % (Auto) 10.4 (2-11) % Eos % (Auto) 1.7 (0-4) % Baso % (Auto) 0.8 (0-2) % Lymph # (Auto) 1.3 (1.2-4.9) X10*3/uL [place] # (Auto) 0.5 (0.1-1.2) X10*3/uL Eos # (Auto) 0.1 (0.0-0.4) X10*3/uL Baso # (Auto) 0.0 (0.0-0.2) X10*3/uL Abs Immat Gran (auto) 0.01 (0.00-0.03) X10*3/uL Absolute Neuts (auto) 2.9 (2.0-8.3) x10*3/uL Absolute Nucleated RBC 0.000 (0.0-0.012) X10*3/uL Nucleated RBC % (auto) 0.0 (0.0-0.2) /100WBC PT (10.0-13.1) SEC INR (0.9-1.1) Sodium 134 L (135-145) mmol/L Potassium 4.2 (3.3-5.1) mmol/L Chloride 101 (96-108) mmol/L Carbon Dioxide 26 (22-29) mmol/L Anion Gap 11 L (12-20) BUN 10 (9-16) mg/dL Creatinine 0.62 (0.5-1.4) mg/dL Estim Creat Clear Calc 47.3 Estimated GFR > 60 Random Glucose 98 (60-115) mg/dL Calcium 9.1 (8.4-10.2) mg/dL Magnesium 1.9 (1.6-2.6) mg/dL Total Bilirubin 0.4 (0.0-1.0) mg/dL Direct Bilirubin 0.2 (0.0-0.5) mg/dL AST 18 (5-31) U/L ALT 12 (0-31) U/L Alkaline Phosphatase 50 (39-117) U/L Troponin I High Sens < 2.7 (<3.5-17.0) ng/L B-Natriuretic Peptide (<100) pg/mL Total Protein 7.0 (6.5-8.0) g/dL Albumin 3.8 (3.5-5.0) g/dL 05/25/23 05/25/23 Range/Units 14:10 14:10 WBC (4.8-10.8) X10*3/uL RBC (4.20-5.50) X10*6/uL Hgb (12.0-16.0) g/dl Hct (37.0-47.0) % MCV (80.0-98.0) fL MCH (27.0-33.0) pg MCHC (31.0-35.0) g/dl RDW (11.0-16.0) % Plt Count (160-400) X10*3/uL MPV (9.4-12.3) fL Immature Gran % (Auto) (0.0-0.4) % Neut % (Auto) (45-73) % Lymph % (Auto) (20-40) % [place] % (Auto) (2-11) % Eos % (Auto) (0-4) % Baso % (Auto) (0-2) % Lymph # (Auto) (1.2-4.9) X10*3/uL [place] # (Auto) (0.1-1.2) X10*3/uL Eos # (Auto) (0.0-0.4) X10*3/uL Baso # (Auto) (0.0-0.2) X10*3/uL Abs Immat Gran (auto) (0.00-0.03) X10*3/uL Absolute Neuts (auto) (2.0-8.3) x10*3/uL Absolute Nucleated RBC (0.0-0.012) X10*3/uL Nucleated RBC % (auto) (0.0-0.2) /100WBC PT 11.6 (10.0-13.1) SEC INR 1.0 (0.9-1.1) Sodium (135-145) mmol/L Potassium (3.3-5.1) mmol/L Chloride (96-108) mmol/L Carbon Dioxide (22-29) mmol/L Anion Gap (12-20) BUN (9-16) mg/dL Creatinine (0.5-1.4) mg/dL Estim Creat Clear Calc Estimated GFR Random Glucose (60-115) mg/dL Calcium (8.4-10.2) mg/dL Magnesium (1.6-2.6) mg/dL Total Bilirubin (0.0-1.0) mg/dL Direct Bilirubin (0.0-0.5) mg/dL AST (5-31) U/L ALT (0-31) U/L Alkaline Phosphatase (39-117) U/L Troponin I High Sens (<3.5-17.0) ng/L B-Natriuretic Peptide 176 H (<100) pg/mL Total Protein (6.5-8.0) g/dL Albumin (3.5-5.0) g/dL Discharge Plan Discharge Clinical Impression: Atypical chest pain Patient Disposition: Elopement Prescriptions: No Action cholecalciferol (vitamin D3) 25 mcg (1,000 unit) capsule 25 mcg PO DAILY 30 Days Qty: 30 5RF calcium citrate-vitamin D3 315 mg-5 mcg (200 unit) tablet 1 tab PO DAILY 30 Days Qty: 90 3RF cranberry 400 mg capsule 400 mg PO DAILY Rx Instructions: administer with a meal docusate sodium [Colace] 100 mg capsule 100 mg PO DAILY estradiol 0.01 % (0.1 mg/gram) cream 1 g vaginal 2XW citalopram 10 mg tablet 10 mg PO DAILY PRN ropinirole 0.5 mg tablet 0.5 mg PO BEDTIME omeprazole 20 mg capsule,delayed release(DR/EC) 20 mg PO DAILY PRN zoledronic [id number] [Reclast] 5 mg/100 mL piggyback IV albuterol sulfate 90 mcg/actuation HFA aerosol inhaler 0 mcg inhalation Interventions: ED Discharge Assessment Last Done: 05/25/23 21:10 Discharge Date/Time: 05/25/23 21:10
[2023-05-25 14:18] LABS: MANUAL DIFF FLAG NO
[2023-05-25 14:20] LABS: Basophils Percent Auto 0.8 % (0-2); Eosinophils Absolute Auto 0.1 X10*3/uL (0.0-0.4); Eosinophils Percent Auto 1.7 % (0-4); Hematocrit 39.4 % (37.0-47.0); Hemoglobin 13.3 g/dl (12.0-16.0); Imm Gran Abs Auto 0.01 X10*3/uL (0.00-0.03); Imm Gran Pct Auto 0.2 % (0.0-0.4); Lymphocytes Absolute Auto 1.3 X10*3/uL (1.2-4.9); Lymphocytes Percent Auto 27.3 % (20-40); Mean Corpuscular HGB Conc 33.8 g/dl (31.0-35.0); Mean Corpuscular Hemoglobin 29.4 pg (27.0-33.0); Mean Platelet Volume 10.8 fL (9.4-12.3); Monocytes Absolute Auto 0.5 X10*3/uL (0.1-1.2); Monocytes Percent Auto 10.4 % (2-11); Neutrophils Absolute Auto 2.9 x10*3/uL (2.0-8.3); Neutrophils Percent Auto 59.6 % (45-73); Platelet Count 237 X10*3/uL (160-400); Red Blood Count 4.53 X10*6/uL (4.20-5.50); Red Cell Distribution Width 13.1 % (11.0-16.0); White Blood Count 4.8 X10*3/uL (4.8-10.8)
[2023-05-25 14:36] LABS: Prothrombin Time 11.6 SEC (10.0-13.1)
[2023-05-25 14:38] LABS: B Type Natriuretic Peptide 176 pg/mL (<100)
[2023-05-25 14:45] LABS: Alanine Aminotransferase 12 U/L (0-31); Albumin Level 3.8 g/dL (3.5-5.0); Alkaline Phosphatase 50 U/L (39-117); Anion Gap 11 (12-20); Aspartate Amino Transferase 18 U/L (5-31); Bilirubin Direct 0.2 mg/dL (0.0-0.5); Bilirubin Total 0.4 mg/dL (0.0-1.0); Blood Urea Nitrogen 10 mg/dL (9-16); Calcium 9.1 mg/dL (8.4-10.2); Carbon Dioxide 26 mmol/L (22-29); Chloride 101 mmol/L (96-108); Creatinine Clr Calc Pharmacy 47.3; Estimated Glomerular Filt Rate > 60; Glucose Random 98 mg/dL (60-115); Magnesium 1.9 mg/dL (1.6-2.6); Potassium 4.2 mmol/L (3.3-5.1); Sodium 134 mmol/L (135-145)
[2023-05-25 15:12] LABS: Troponin-I High Sensitivity < 2.7 ng/L (<3.5-17.0)
== END 2023-05-25 21:10 | disposition left against medical advice (07) ==
PROVIDERS: Physician Assistant; Emergency Provider Emergency Medicine; PCP Internal Medicine
DX: R07.89 Other chest pain (principal); M79.602 Pain in left arm; M79.601 Pain in right arm; R06.02 Shortness of breath; Z79.899 Other long term (current) drug therapy
CPT/HCPCS: 36415; 71046; 80048; 80076; 83735; 83880; 84484; 85025; 85610; 93005; 99283

== ENCOUNTER → 2023-05-25 12:39 | Outpatient (BNV) | payer MEDICARE, SELFPAY | PROVIDERS: Emergency Provider Emergency Medicine; PCP Internal Medicine; Visit Provider Internal Medicine Cardiovascular Disease | DX: R00.1 Bradycardia, unspecified (principal) | CPT/HCPCS: 93010 ==

== ENCOUNTER 2023-05-26 07:50 | Emergency (ER) | payer MEDICARE, SELFPAY ==
[2023-05-26 07:57] VITALS: BP 121/65; PULSE 66; RESP 18; TEMP 36.6; O2SAT 97; BMI 19.3
--- NOTE | 2023-05-26 08:11 | ED.CHESTPAIN ---
HPI - Chest Pain General Chief Complaint: Chest Pain Stated Complaint: nausea , chest pain Time Seen by Provider: 05/26/23 08:04 Source: patient, RN notes reviewed and old records reviewed Mode of arrival: ambulatory History of Present Illness HPI narrative: 77-year-old female with a past medical history of glaucoma, osteoporosis, pulmonary fibrosis, vitamin-D deficiency, presenting to the ED complaining of epigastric abdominal pain radiating to chest with associated chest discomfort, nausea, mild diarrhea, generalized fatigue, and chronic SOB x months. Patient presented to our ED yesterday for similar symptoms, had labs and CXR which were unremarkable however eloped prior to evaluation. Reports chest pain has improved. Admits to suspected esophageal stricture, had endoscopy at [facility] with scheduled GI follow-up at the end of June. Admits discomfort is worse in the morning/eating. Denies fever/chills, cough, CP at present, vomiting, pedal edema Related Data Home Medications Medication Instructions Recorded Confirmed cranberry 400 mg capsule 400 mg PO DAILY 11/22/20 04/19/23 docusate sodium 100 mg capsule 100 mg PO DAILY 11/22/20 04/19/23 (Colace) estradiol 0.01% (0.1 mg/gram) 1 g vaginal 2XW 11/30/21 04/19/23 vaginal cream omeprazole 20 mg capsule,delayed 20 mg PO DAILY PRN 06/16/22 04/19/23 release zoledronic acid 5 mg/100 mL in IV 06/16/22 03/26/23 mannitol 5 %-water intravenous piggybck (Reclast) albuterol sulfate 90 mcg/actuation 0 mcg inhalation 12/05/22 04/19/23 aerosol inhaler citalopram 10 mg tablet 10 mg PO DAILY PRN 12/05/22 03/26/23 ropinirole 0.5 mg tablet 0.5 mg PO BEDTIME 03/26/23 03/26/23 Previous Rx's Medication Instructions Recorded cholecalciferol (vitamin D3) 25 25 mcg PO DAILY 30 days #30 caps 12/20/22 mcg (1,000 unit) capsule calcium citrate 315 mg-vitamin D3 1 tab PO DAILY 30 days #90 tabs 04/23/23 5 mcg (200 unit) tablet Allergies Allergy/AdvReac Type Severity Reaction Status Date / Time Sulfa (Sulfonamide Allergy Severe Anaphylaxis Verified 05/26/23 07:56 Antibiotics) codeine [CODEINE] Allergy Intermediate GI UPSET Verified 05/26/23 07:56 erythromycin base AdvReac Severe gi upset Verified 05/26/23 07:56 Review of Systems Review of Systems: Constitutional: No Fever, No Chills, No Night Sweats, No Fatigue, No Malaise ENT/Mouth: No Ear Pain, No sore throat, No Rhinorrhea, No Swallowing Difficulty Eyes: No Eye Pain, No Swelling, No Redness,No Vision Changes Cardiovascular: + Chest Pain, + SOB, No Edema, No Palpitations Respiratory: No Cough, No Sputum, No Dyspnea Gastrointestinal: + Nausea, No Vomiting, + Diarrhea, No Constipation, + Abdominal pain Genitourinary: No Dysuria, No Urinary Frequency, No Hematuria, No Flank Pain Musculoskeletal: No joint pain, No Myalgias, No Joint Swelling Skin: No Skin Lesions, No rash Neuro: No Weakness, No Numbness, No Paresthesias, No Loss of Consciousness, No Dizziness, No Headache Yes all other systems are reviewed and are negative Constitutional: Constitutional: Reports as per [facility] Past Medical History Attestation statement: The following information was validated with the patient. Source: old records reviewed Medical History Glaucoma Hypercalciuria Osteoporosis Pulmonary fibrosis Vitamin D deficiency Surgical History History of carpal tunnel surgery History of endoscopy History of surgery on wrist Hx of adenoidectomy Hx of colonoscopy Hx of hammer toe correction Hx of neck surgery Hx of tonsillectomy Family History Family History Father Lung cancer Mother CVD (cardiovascular disease) Social History Social History Household Members: None Alcohol intake: never Patient Tobacco Use Status: Former Tobacco user Years Smoked: 5 Advance Directives: No Advance Directives Information Provided: Yes Physical Exam Vital Signs: Vital Signs: Last Vital Signs Temp 97.8 F 05/26/23 07:57 Pulse 66 05/26/23 07:57 Resp 18 05/26/23 07:57 BP 121/65 05/26/23 07:57 Pulse Ox 97 05/26/23 08:26 O2 Del Method Room Air 05/26/23 08:26 BMI result Body Mass Index 19.3 Const: General: cooperative, healthy appearing, no acute distress, alert and awake Orientation/consciousness: patient oriented x3 Limitations: no limitations HEENT: Head: Yes normal to inspection and Yes atraumatic Ears: hearing grossly normal bilaterally General nose exam: Normal external nose present Face and sinus: Yes normal facial exam Eyes: General: appearance normal, both eyes and all related structures EOM: EOMs intact bilaterally Neck: Neck: Yes normal visual inspection and Yes no meningeal signs Resp: Effort & Inspection: normal respiratory effort and no respiratory distress Auscultation: clear to auscultation bilaterally, no crackles, no rales, no rhonchi and no wheezes Cardio: Rate: regular rate Heart sounds: S1 normal heart sound present and S2 normal heart sound present GI: Inspection: Yes normal to inspection Palpation (GI): Soft to palpation, Tenderness to palpation present (GI) in the epigastrum; with no rebound tenderness, no guarding and not rigid : General: Yes no CVA tenderness Back/Spine/Pelvis: Back: no CVA tenderness Skin: Rashes: no rashes Wounds: no wounds Neuro: General: patient oriented x3, tone normal and no meningeal signs Gait exam (Neuro): Normal gait present Extrem: General: Yes normal to inspection, Yes no pedal edema and Yes no calf tenderness Course Course Course Narrative: -[id number]--patient maintained a saturation of 97% or greater with ambulation Results discussed with patient including worrisome signs and symptoms and strict return precautions, and when to return to the emergency department. They verbalized understanding and feel safe for discharge at this time. Medications Administered Discontinued Medications Generic Name Dose Route Start Last Admin Trade Name Freq PRN Reason Stop Dose Admin Ondansetron HCl 4 mg 05/26/23 08:22 05/26/23 08:51 Ondansetron Odt 4 Mg Tab.Pablitodis TRANSLINGU 05/26/23 08:23 4 mg ONCE ONE Administration Medical Decision Making Medical Decision Making MDM Narrative: 77-year-old female with a past medical history of glaucoma, osteoporosis, pulmonary fibrosis, vitamin-D deficiency, presenting to the ED complaining of epigastric abdominal pain radiating to chest with associated chest discomfort, nausea, mild diarrhea, generalized fatigue, and chronic SOB x months. On exam vital signs stable, NAD, nontoxic appearing, ambulating with steady gait, lungs CTA, abdomen soft with mild epigastric tenderness, no rebound or guarding, no pedal edema. Patient had EKG, labs including troponin and CXR which were all unremarkable yesterday. Concern for esophageal stricture w/GERD/gastritis vs ?Atypical ACS however troponin negative yesterday vs viral syndrome. Low suspicion for dissection, CHF, pneumonia, metabolic abnormalities Discussed with patient recommended repeat EKG however she is worried about being double billed and would like to defer. Offered repeat labs, do not feel strongly they're needed, and patient is in agreement Plan: Ambulating pulse ox, sublingual Zofran Discussed with patient and daughter recommended calling GI doctor to see if they can get sooner appointment Please refer to course for remaining clinical decision making, interpretation of labs/imaging results, and discussions with consultants and/or family members. Differential Diagnosis Differential Diagnoses: The differential diagnosis associated with the presentation includes As above Admission/Observation Consideration of admission/observation: Escalation of care including admission/observation considered Lab Data MDM Lab Attestation statement: I reviewed the patient's lab results. Radiology Impression Discussion of test interpretation with radiology: I have reviewed the radiologist's reading. Independent Historian Clinical information obtained from an independent historian. History obtained from or confirmed by: Other (Daughter) External Record Review External record reviewed: Inpatient record, Office record, Outpatient record, Prior outpatient labs, Prior outpatient radiology, Primary care record and Outside ED record Tests considered The following testing was considered but not selected: Repeat EKG, labs/x-ray considered/offered however deferred Chronic Conditions Patient?s care impacted by: Other (Osteoporosis) Discharge Plan Discharge Clinical Impression: Abdominal pain, epigastric, Fatigue Patient Disposition: Home, Self-Care Instructions: Abdominal Pain (ED), Fatigue (ED) Additional Instructions: Your blood work & x-ray were unremarkable yesterday Your oxygen did not drop with exertion Avoid eating right before bed, eat about an hour before you sleep or lie flat If symptoms persist or worsen, change, constant worsening chest pain/shortness of breath, you are unable to eat or drink return to the ED Prescriptions: No Action cholecalciferol (vitamin D3) 25 mcg (1,000 unit) capsule 25 mcg PO DAILY 30 Days Qty: 30 5RF calcium citrate-vitamin D3 315 mg-5 mcg (200 unit) tablet 1 tab PO DAILY 30 Days Qty: 90 3RF cranberry 400 mg capsule 400 mg PO DAILY Rx Instructions: administer with a meal docusate sodium [Colace] 100 mg capsule 100 mg PO DAILY estradiol 0.01 % (0.1 mg/gram) cream 1 g vaginal 2XW citalopram 10 mg tablet 10 mg PO DAILY PRN ropinirole 0.5 mg tablet 0.5 mg PO BEDTIME omeprazole 20 mg capsule,delayed release(DR/EC) 20 mg PO DAILY PRN zoledronic [id number] [Reclast] 5 mg/100 mL piggyback IV albuterol sulfate 90 mcg/actuation HFA aerosol inhaler 0 mcg inhalation Referrals: [facility] [Provider Group] Kendell Vaughn MD [Primary Care Provider] - 3 days
[2023-05-26 08:26] VITALS: O2SAT 97
[2023-05-26] MEDS: Ondansetron ODT 4 MG TAB.RAPDIS TRANSLINGU (08:51)
--- NOTE | 2023-05-26 09:08 | PC.NURSE ---
pt axox4, VSS, respirations even and unlabored, skin WPD. pt reports chronic difficulty swallowing, being followed by GI. also reports upper abd. pain, tender on palpation, reports nausea. pt medicated per JAN. pt ambulatory o2 monitoring with pct; 97% on RA. daughter at bedside. both aware of plan of care; deny questions at this time.
== END 2023-05-26 09:20 | disposition home or self-care (01) ==
PROVIDERS: Emergency Provider Student in an Organized Health Care Education/Training Program; PCP Internal Medicine
DX: R10.13 Epigastric pain (principal); R53.83 Other fatigue; Z79.899 Other long term (current) drug therapy
CPT/HCPCS: 99282; 99283

== ENCOUNTER 2023-06-07 07:29 | Outpatient (REF) | payer MEDICARE, SELFPAY ==
[2023-06-07 11:12] LABS: Blood Urea Nitrogen 13 mg/dL (9-16); Estimated Glomerular Filt Rate > 60
== END 2023-06-07 07:30 | disposition home or self-care (01) ==
LOC: HO.10HDL 07:29
PROVIDERS: Visit Provider Internal Medicine
DX: M81.0 Age-related osteoporosis without current pathological fracture (principal)
CPT/HCPCS: 36415; 82565; 84520

== ENCOUNTER 2023-06-14 07:48 | Outpatient (REF) | payer MEDICARE, SELFPAY | END 2023-06-14 07:49 | disposition home or self-care (01) | LOC: HO.MDS 07:48 | PROVIDERS: Visit Provider Internal Medicine | DX: M81.0 Age-related osteoporosis without current pathological fracture (principal) | CPT/HCPCS: 96365; J3489 ==

== ENCOUNTER 2023-08-02 11:17 | Outpatient (REF) | payer MEDICARE, SELFPAY | END 2023-08-02 11:18 | disposition home or self-care (01) | LOC: HO.MAMMO 11:17 | PROVIDERS: PCP Internal Medicine; Visit Provider Internal Medicine | DX: Z12.31 Encounter for screening mammogram for malignant neoplasm of breast (principal) | CPT/HCPCS: 77063; 77067 ==

== ENCOUNTER → 2023-08-02 11:30 | Outpatient (BNV) | payer MEDICARE, SELFPAY | PROVIDERS: PCP Internal Medicine; Visit Provider Radiology Diagnostic Radiology | DX: Z12.31 Encounter for screening mammogram for malignant neoplasm of breast (principal) | CPT/HCPCS: 77063; 77067 ==

== ENCOUNTER 2023-08-21 10:51 | Outpatient (REF) | payer MEDICARE, SELFPAY ==
[2023-08-21 10:57] LABS: MANUAL DIFF FLAG NO
[2023-08-21 12:40] LABS: Basophils Absolute Auto 0.1 X10*3/uL (0.0-0.2); Eosinophils Absolute Auto 0.3 X10*3/uL (0.0-0.4); Eosinophils Percent Auto 4.3 % (0-4); Hematocrit 35.7 % (37.0-47.0); Imm Gran Abs Auto 0.02 X10*3/uL (0.00-0.03); Imm Gran Pct Auto 0.3 % (0.0-0.4); Lymphocytes Absolute Auto 2.1 X10*3/uL (1.2-4.9); Lymphocytes Percent Auto 35.6 % (20-40); Mean Corpuscular HGB Conc 30.8 g/dl (31.0-35.0); Mean Corpuscular Hemoglobin 26.1 pg (27.0-33.0); Mean Corpuscular Volume 84.8 fL (80.0-98.0); Mean Platelet Volume 11.8 fL (9.4-12.3); Monocytes Absolute Auto 0.7 X10*3/uL (0.1-1.2); Monocytes Percent Auto 11.4 % (2-11); Neutrophils Absolute Auto 2.8 x10*3/uL (2.0-8.3); Neutrophils Percent Auto 47.4 % (45-73); Platelet Count 314 X10*3/uL (160-400); Red Blood Count 4.21 X10*6/uL (4.20-5.50); Red Cell Distribution Width 13.9 % (11.0-16.0); White Blood Count 5.8 X10*3/uL (4.8-10.8)
== END 2023-08-21 10:52 | disposition home or self-care (01) ==
LOC: HO.LNP 10:51
PROVIDERS: Visit Provider Internal Medicine
DX: E78.00 Pure hypercholesterolemia, unspecified (principal); E55.9 Vitamin D deficiency, unspecified
CPT/HCPCS: 80053; 80061; 81001; 82306; 85025

== ENCOUNTER 2023-09-20 12:06 | Outpatient (REF) | payer MEDICARE, SELFPAY ==
[2023-09-20 12:18] LABS: MANUAL DIFF FLAG NO
[2023-09-20 12:30] LABS: Appearance Urine Clear; Color Urine Yellow; Glucose Urine UA Negative (Negative); Leukocyte Esterase Urine Trace (Negative); Nitrite Urine Negative (Negative); PH 6.5 (5.0-9.0); Specific Gravity - Urine 1.025 (1.005-1.025); UMIC TRIGGER UACC YES; Urine Blood Negative (Negative); Urine Ketones Negative (Negative); Urine Protein Negative (Neg-Trace)
[2023-09-20 12:33] LABS: Bacteria Urine None Seen (None Seen); Hyaline Casts Urine 0-2 /LPF (0-2); WBC Urine 0-5 /HPF (0-5)
[2023-09-20 12:37] LABS: Basophils Absolute Auto 0.1 X10*3/uL (0.0-0.2); Basophils Percent Auto 1.2 % (0-2); Eosinophils Absolute Auto 0.2 X10*3/uL (0.0-0.4); Eosinophils Percent Auto 3.2 % (0-4); Hematocrit 34.2 % (37.0-47.0); Hemoglobin 10.7 g/dl (12.0-16.0); Imm Gran Abs Auto 0.01 X10*3/uL (0.00-0.03); Imm Gran Pct Auto 0.2 % (0.0-0.4); Lymphocytes Absolute Auto 1.4 X10*3/uL (1.2-4.9); Lymphocytes Percent Auto 27.4 % (20-40); Mean Corpuscular HGB Conc 31.3 g/dl (31.0-35.0); Mean Corpuscular Hemoglobin 25.1 pg (27.0-33.0); Mean Corpuscular Volume 80.1 fL (80.0-98.0); Mean Platelet Volume 11.5 fL (9.4-12.3); Monocytes Absolute Auto 0.5 X10*3/uL (0.1-1.2); Monocytes Percent Auto 9.5 % (2-11); Neutrophils Absolute Auto 2.9 x10*3/uL (2.0-8.3); Neutrophils Percent Auto 58.5 % (45-73); Platelet Count 338 X10*3/uL (160-400); Red Blood Count 4.27 X10*6/uL (4.20-5.50); Red Cell Distribution Width 14.6 % (11.0-16.0)
[2023-09-20 13:13] LABS: Iron 14 mcg/dL (30-160); Percent Iron Saturation 4 % (15-50); Total Iron Binding Capacity 326 mcg/dL (228-428); Unsaturated Iron Binding 312 ug/dL
== END 2023-09-20 12:07 | disposition home or self-care (01) ==
LOC: HO.LNP 12:06
PROVIDERS: Visit Provider Internal Medicine
DX: D64.9 Anemia, unspecified (principal)
CPT/HCPCS: 81001; 83540; 85025

== ENCOUNTER 2023-11-08 13:45 | Outpatient (REF) | payer MEDICARE, SELFPAY ==
--- NOTE | ~2023-11-08 | MM_ITS ---
EXAMINATION: BONE DENSITOMETRY CLINICAL INDICATION: Osteoporosis. COMPARISON: Previous BD dated 11/02/2021 and baseline BD dated 03/05/2007. TECHNIQUE: Using a Optimus DXA System (software version: 13.1) manufactured by [employer], dual-energy x-ray absorptiometry was performed of the lumbar spine and left hip. The images are of good technical quality. Summary results are attached. FINDINGS: LEFT FEMUR, NECK: Current: BMD 0.736 g/cm2, Z-score 0.5, T-score -2.2, osteopenia. Prior: BMD 0.769 g/cm2. Baseline: BMD 0.736 g/cm2. LEFT FEMUR, TOTAL: Current: BMD 0.715 g/cm2, Z-score 0.3, T-score -2.3, osteopenia, 5.9% decrease from previous, 7.6% decrease from baseline (<5% change is not significant). Prior: BMD 0.760 g/cm2. Baseline: BMD 0.774 g/cm2. AP SPINE L1-L4 (excluding L3): The data of L1-L4 has been changed to exclude the L3 vertebral body, because degenerative sclerosis at this level may cause overestimation of lumbar spine density. Current: BMD 0.960 g/cm2, Z-score 0.9, T-score -1.7, osteopenia, 1.4% increase from previous, 4.0% decrease from baseline (<5% change is not significant). Prior: BMD 0.947 g/cm2. Baseline: BMD 1.000 g/cm2. IDENTIFIED RISK FACTORS: Osteoporosis, height loss, low body weight, history of fracture (adult), menopause. HISTORY OF FRACTURE: Wrist. MEDICATIONS: Calcium supplements or multivitamin, vitamin D, ERT/SERMS, bisphosphonates. MM/XR DEXA axial skeleton IMPRESSION: 1. DIAGNOSIS: Osteopenia based on the lowest T-score value of -2.3 in the total femur applying World Health Organization criteria. 2. 10-YEAR FRACTURE RISK PREDICTION, FRAX: Not performed in this patient on estrogen or bone building treatments. 3. Treatment Recommendations: NOF guidelines recommend consideration for treatment in postmenopausal women and men age 50 and older presenting with the following: -A hip or vertebral (clinical or morphometric) fracture. -T-score less than or equal to -2.5 at the femoral neck or spine after appropriate evaluation to exclude secondary causes. -Low bone mass at the hip or spine and a 10-year fracture probability by FRAX of greater than or equal to 3% for hip fracture or greater than or equal to 20% for major osteoporotic fracture based on the [place] adapted WHO algorithm. 4. Other Recommendations: All treatment decisions require clinical judgment and consideration of individual patient factors, including patient preferences, comorbidities, previous drug use, risk factors not captured in the FRAX model (e.g. frailty, falls, vitamin D deficiency, increased bone turnover, interval significant decline in bone density) and possible under or overestimation of fracture risk by FRAX. Additional medical evaluation for secondary cause of low bone mineral density may be appropriate. FUTURE SCAN RECOMMENDATION: People with diagnosed cases of osteoporosis or at high risk for fracture should have regular bone mineral density tests. For patients eligible for Medicare, routine testing is allowed once every 2 years. The testing frequency can be increased to one year for patients who have rapidly progressing disease, those who are receiving or discontinuing medical therapy to restore bone mass, or have additional risk factors.
== END 2023-11-08 13:46 | disposition home or self-care (01) ==
LOC: HO.MAMMO 13:45
PROVIDERS: PCP Internal Medicine; Visit Provider Internal Medicine
DX: Z13.820 Encounter for screening for osteoporosis (principal); Z78.0 Asymptomatic menopausal state; M81.0 Age-related osteoporosis without current pathological fracture; E55.9 Vitamin D deficiency, unspecified
CPT/HCPCS: 77080

== ENCOUNTER → 2023-11-27 10:30 | Outpatient (REF) | payer MEDICARE, SELFPAY ==
--- NOTE | ~2023-11-27 | NM_ITS ---
EXAMINATION: NM BONE SCAN OF THE WHOLE BODY CLINICAL INFORMATION: Bone pain. Right hip pain. History of osteoporosis. History of right wrist fracture. History of neck surgery 40 years ago. History of fall 2 years ago COMPARISON: Whole-body bone scan done on 11/25/2020 and radiographs of the right hip done on 02/23/2023 and radiographs of the cervical spine done on 06/16/2021 and right wrist radiograph done on 12/20/2021. TECHNIQUE: Multiple gamma scintillation camera images of the whole body were performed 2.5 hours following the intravenous administration of 18 mCi Tc-99m MDP. The radiotracer was injected through right antecubital superficial vein without complications. FINDINGS: In the head, no suspicious focal abnormality. In the thoracic cage and upper extremities, no suspicious focal lesion, unchanged. In the spine, multifocal increased tracer avid disease are present at the cervical spine and the mid lumbar spine, shows interval progression, nonspecific in appearance. Radiographic and are alternative imaging (CT scan or MRI as appropriate) correlation is recommended. In the pelvis, asymmetric increased tracer avidity is noted involving the greater trochanter of the left femur, nonspecific in appearance. Radiographic correlation is recommended. In the lower extremities, no suspicious focal lesion. No other definite bony abnormalities are noted. The urinary bladder and faint visualization of both kidneys are noted. NM/NM bone scan whole body IMPRESSION: 1. Interval development/progression nonspecific tracer avid disease at the cervical and the lumbar spine since the most recent prior study dated 11/25/2020. Radiographic and cross-sectional imaging correlation is recommended for further clarification. 2. Interval development of asymmetric increased tracer avidity at the greater trochanter of the left femur, nonspecific in appearance. Radiographic correlation is recommended. 3. No other significant interval change.
== END ==
LOC: HO.NUCMED 10:30
PROVIDERS: PCP Internal Medicine; Visit Provider Internal Medicine
DX: M89.8X9 Other specified disorders of bone, unspecified site (principal)
CPT/HCPCS: 78306; A9503

== ENCOUNTER 2023-12-03 08:11 | Inpatient (IN) | payer MEDICARE, SELFPAY ==
[2023-12-03] VITALS (7 sets, daily range): BP systolic 125–154; BP diastolic 63–100; PULSE 65–74; RESP 16–20; TEMP 36.5–36.9; O2SAT 93–99; BMI 19.1
--- NOTE | ~2023-12-03 | CT_ITS ---
EXAMINATION: CT ABDOMEN AND PELVIS WITHOUT CONTRAST CLINICAL INFORMATION: Diffuse abdominal pain with diarrhea for 5 days COMPARISON: CT abdomen pelvis 08/04/2017 TECHNIQUE: Multidetector volumetric imaging was performed from the superior aspect of the liver through the pubic symphysis. Sagittal and coronal reformatted images were obtained on the technologist's workstation. This CT examination was performed using dose optimization techniques as appropriate, variously including the following: *Automated exposure control *Adjustment of mA and/or kV according to patient size (this includes techniques or standardized protocols for targeted exams where dose is matched to indication/reason for exam; i.e. extremities or head) *Use of iterative reconstruction technique DLP: 229 mGy-cm FINDINGS: LUNG BASES: Pulmonary fibrosis is present, increased since 2017. Cardiac blood pool has decreased attenuation suggesting anemia. LIVER, GALLBLADDER, AND BILIARY TREE: The liver is normal in size, shape, and attenuation. No focal hepatic lesion or biliary ductal dilatation is present. The gallbladder is unremarkable with no evidence of radiopaque gallstones, gallbladder wall thickening, or obvious pericholecystic inflammatory changes. PANCREAS: Unremarkable. SPLEEN: Unremarkable. ADRENAL GLANDS: Unremarkable. KIDNEYS AND URETERS: The kidneys are normal in size, shape, and attenuation. No hydronephrosis, hydroureter, or calculi seen. No perinephric stranding. BLADDER: Unremarkable. GASTROINTESTINAL TRACT: The small and large bowel are unremarkable. The appendix is not seen but there is no evidence of appendicitis evidence of appendicitis.. ABDOMINAL WALL: No significant hernia is appreciated. LYMPH NODES: Normal. VASCULAR: Unremarkable. PELVIC VISCERA: The retroflexed uterus and adnexa are unremarkable. A pessary is present OSSEOUS STRUCTURES: Marked degenerative changes are present in the spine. There is grade 1 anterolisthesis of L4 upon L5. CT/CT abdomen pelvis wo IV con IMPRESSION: 1. A cause for the patient's diffuse abdominal pain and diarrhea has not been found. 2. Incidental note made of pulmonary fibrosis, degenerative changes in the spine, anemia and a pessary. Fleischner guidelines were followed.
--- NOTE | 2023-12-03 08:46 | ED_ITS ---
HPI - Nausea/Vomiting/Diarrhea General Chief complaint: Nausea/Vomiting/Diarrhea Stated complaint: ABD PAIN, N/V/D PER EMS Time Seen by Provider: 12/03/23 08:28 Source: patient and EMS Mode of arrival: EMS Limitations: no limitations History of Present Illness HPI Narrative: Patient with increased abdominal pain and diarrhea for the past week. She states that she has had abdominal pain and dropping HCT but has not gotten in with GI. Today her pain and diarrhea was worse and she felt like she was going to pass out. MD elicited complaint: nausea and diarrhea Onset (ago): week(s) Pain consistency: constant Severity: moderate Quality: cramping Associated symptoms: other (lightheaded) Related Data Home Medications Medication Instructions Recorded Confirmed cranberry 400 mg capsule 400 mg PO DAILY 11/22/20 04/19/23 docusate sodium 100 mg capsule 100 mg PO DAILY 11/22/20 04/19/23 (Colace) estradiol 0.01% (0.1 mg/gram) 1 g vaginal 2XW 11/30/21 04/19/23 vaginal cream omeprazole 20 mg capsule,delayed 20 mg PO DAILY PRN 06/16/22 04/19/23 release zoledronic acid 5 mg/100 mL in IV 06/16/22 03/26/23 mannitol 5 %-water intravenous piggybck (Reclast) albuterol sulfate 90 mcg/actuation 0 mcg inhalation 12/05/22 04/19/23 aerosol inhaler citalopram 10 mg tablet 10 mg PO DAILY PRN 12/05/22 03/26/23 ropinirole 0.5 mg tablet 0.5 mg PO BEDTIME 03/26/23 03/26/23 Previous Rx's Medication Instructions Recorded calcium citrate 315 mg-vitamin D3 1 tab PO DAILY 30 days #90 tabs 04/23/23 5 mcg (200 unit) tablet cholecalciferol (vitamin D3) 25 25 mcg PO DAILY #90 caps 06/18/23 mcg (1,000 unit) capsule (Vitamin D3) Allergies Allergy/AdvReac Type Severity Reaction Status Date / Time Sulfa (Sulfonamide Allergy Severe Anaphylaxis Verified 12/03/23 08:40 Antibiotics) codeine [CODEINE] Allergy Intermediate GI UPSET Verified 12/03/23 08:40 erythromycin base AdvReac Severe gi upset Verified 12/03/23 08:40 Review of Systems 2 Review of Systems: Yes all other systems are reviewed and are negative Neurologic: Denies Sensory deficit (Neuro) [facility] Past Medical History Onset Date is defined in the Problem List Problems that require an onset date and time if occurred within 24 hrs of arrival to the ED Aortic Dissection and Rupture; Neurologic impairment; Cardiopulmonary Arrest; Endotracheal Intubation; Insertion or Replacement of Mechanical Circulatory Assist Device Medical History Pulmonary fibrosis Glaucoma Vitamin D deficiency Hypercalciuria Osteoporosis Surgical History History of endoscopy History of surgery on wrist Hx of neck surgery Hx of adenoidectomy Hx of tonsillectomy Hx of colonoscopy Hx of hammer toe correction History of carpal tunnel surgery Family History Family History Father Lung cancer Mother CVD (cardiovascular disease) Social History Social History Household Members: None Alcohol intake: never Patient Tobacco Use Status: Former Tobacco user Years Smoked: 5 Advance Directives: No Advance Directives Information Provided: Yes Physical Exam 2 Vital Signs: Vital Signs: Last Vital Signs Temp 97.9 F 12/03/23 08:22 Pulse 68 12/03/23 08:22 Resp 18 12/03/23 08:22 BP 141/68 H 12/03/23 08:22 Pulse Ox 98 12/03/23 08:22 O2 Del Method Room Air 12/03/23 08:22 BMI result Body Mass Index 19.1 Const: Other: thin frail female, pale Nutritional Appearance: average body habitus Orientation/consciousness: oriented to person and patient oriented x3 Limitations: no limitations HEENT: Head: Yes normal to inspection Ears: external ears normal General nose exam: Normal external nose present Mouth: Normal oral and palatal mucosa present and oropharynx normal Throat: Yes posterior oropharynx normal Eyes: General: appearance normal, both eyes and all related structures Neck: Other: supple Neck: Yes normal visual inspection Chest: Chest palpation & inspection: normal inspection of the chest Resp: Auscultation: clear to auscultation bilaterally Cardio: Jugular venous distension: no JVD Rate: regular rate Rhythm: r egular rhythm Heart sounds: S1 normal heart sound present and S2 normal heart sound present GI: Inspection: Yes normal to inspection Palpation (GI): Soft to palpation, nontender and No hepatosplenomegaly present Auscultation: normal bowel sounds : Other: rectal yellow stool strong heme positive General: Yes no CVA tenderness Back/Spine/Pelvis: Back: no CVA tenderness Skin: General skin exam: no rashes or lesions noted Neuro: General: oriented to person and patient oriented x3 Cranial nerves: Yes CN's II-XII intact bilaterally Motor exam (neuro): 5/5 motor strength present throughout Sensory Exam: No Sensory deficit (Neuro) Extrem: General: Yes normal to inspection Psych: Appearance: grossly normal Course Reevaluation(s) Reevaluation #1: patient with abdominal pain and diarrhea, strong heme positive stool, 10pt HCT drop and CT that is negative will admit for hydration, diarrhea and GI bleed Time: 10:44 Reevaluation #2: I spent 40 minutes of critical care, with interventions, assessments, speaking to patient, consultants, and family. Time: 10:55 Medications Administered Generic Name Dose Route Start Last Admin Trade Name Freq PRN Reason Stop Dose Admin Sodium Chloride 1,000 mls @ 200 mls/hr 12/03/23 09:00 12/03/23 09:39 Ns IVCONT 12/03/23 13:59 200 mls/hr .Q5H KAR Administration Medical Decision Making Differential Diagnosis Differential Diagnoses: The differential diagnosis associated with the presentation includes (GI Mass, colitis, diverticulitis, GI bleed, anemia were all considered) Admission/Observation Consideration of admission/observation: Escalation of care including admission/observation considered upon arrival patient was considered for admission Consult Healthcare Provider Management of the patient was discussed with: Hospitalist Lab Data 12/03/23 09:37 12/03/23 09:37 Labs: Lab Results 12/03/23 12/03/23 Range/Units 09:37 10:35 WBC 7.8 (4.8-10.8) X10*3/uL RBC 4.41 (4.20-5.50) X10*6/uL Hgb 9.5 L (12.0-16.0) g/dl Hct 31.0 L (37.0-47.0) % MCV 70.3 L (80.0-98.0) fL MCH 21.5 L (27.0-33.0) pg MCHC 30.6 L (31.0-35.0) g/dl RDW 16.9 H (11.0-16.0) % Plt Count 355 (160-400) X10*3/uL MPV 10.3 (9.4-12.3) fL Immature Gran % (Auto) 0.3 (0.0-0.4) % Neut % (Auto) 75.9 H (45-73) % Lymph % (Auto) 11.8 L (20-40) % Glades % (Auto) 10.6 (2-11) % Eos % (Auto) 0.8 (0-4) % Baso % (Auto) 0.6 (0-2) % Lymph # (Auto) 0.9 L (1.2-4.9) X10*3/uL Glades # (Auto) 0.8 (0.1-1.2) X10*3/uL Eos # (Auto) 0.1 (0.0-0.4) X10*3/uL Baso # (Auto) 0.1 (0.0-0.2) X10*3/uL Abs Immat Gran (auto) 0.02 (0.00-0.03) X10*3/uL Absolute Neuts (auto) 5.9 (2.0-8.3) x10*3/uL Absolute Nucleated RBC 0.000 (0.0-0.012) X10*3/uL Nucleated RBC % (auto) 0.0 (0.0-0.2) /100WBC Sodium 135 (135-145) mmol/L Potassium 4.0 (3.3-5.1) mmol/L Chloride 103 (96-108) mmol/L Carbon Dioxide 25 (22-29) mmol/L Anion Gap 11 L (12-20) BUN 10 (9-16) mg/dL Creatinine 0.65 (0.5-1.4) mg/dL Estim Creat Clear Calc 44.5 Estimated GFR > 60 Random Glucose 87 (60-115) mg/dL Calcium 8.3 L D (8.4-10.2) mg/dL Total Bilirubin 0.3 (0.0-1.0) mg/dL AST 20 (5-31) U/L ALT 12 (0-31) U/L Alkaline Phosphatase 43 (39-117) U/L Total Protein 6.3 L (6.5-8.0) g/dL Albumin 3.4 L (3.5-5.0) g/dL Lipase 186 H (8-78) U/L Urine Color Yellow Urine Appearance Clear Urine pH 6.0 (5.0-9.0) Ur Specific [place] <= 1.005 (1.005-1.025) Urine Protein Negative (Neg-Trace) mg/dL Urine Glucose (UA) Negative (Negative) mg/dL Urine Ketones Negative (Negative) mg/dL Urine Blood Negative (Negative) Urine Nitrite Negative (Negative) Ur Leukocyte Esterase Negative (Negative) Independent Interpretation I performed an independent interpretation of an: CT Scan (no perforation or free air seen) Radiology Impression Discussion of test interpretation with radiology: I have reviewed the radiologist's reading. (and agree) Independent Historian Clinical information obtained from an independent historian. History obtained from or confirmed by: Other (sons) Discharge Plan Discharge Clinical Impression: GI (gastrointestinal bleed), Diarrhea Patient Disposition: Admitted As Inpatient
--- NOTE | 2023-12-03 08:48 | PC.NURSE ---
pt a+o x3, 01/19 abdominal pain, she reports n/d, no v/f no one else sick at home, son lives with her and ate the same food. does not take any prescription meds, takes multi-vit. vss. pt changed into [facility], commode at her bedside, bedpan in reach. call bed given.
[2023-12-03] MEDS: 0.9 % Sodium Chloride 1,000 ML 200 ML IVCONT (09:39)
[2023-12-03 09:42] LABS: MANUAL DIFF FLAG NO
[2023-12-03 09:44] LABS: Basophils Absolute Auto 0.1 X10*3/uL (0.0-0.2); Basophils Percent Auto 0.6 % (0-2); Eosinophils Absolute Auto 0.1 X10*3/uL (0.0-0.4); Eosinophils Percent Auto 0.8 % (0-4); Hemoglobin 9.5 g/dl (12.0-16.0); Imm Gran Abs Auto 0.02 X10*3/uL (0.00-0.03); Imm Gran Pct Auto 0.3 % (0.0-0.4); Lymphocytes Absolute Auto 0.9 X10*3/uL (1.2-4.9); Lymphocytes Percent Auto 11.8 % (20-40); Mean Corpuscular HGB Conc 30.6 g/dl (31.0-35.0); Mean Corpuscular Hemoglobin 21.5 pg (27.0-33.0); Mean Corpuscular Volume 70.3 fL (80.0-98.0); Mean Platelet Volume 10.3 fL (9.4-12.3); Monocytes Absolute Auto 0.8 X10*3/uL (0.1-1.2); Monocytes Percent Auto 10.6 % (2-11); Neutrophils Absolute Auto 5.9 x10*3/uL (2.0-8.3); Neutrophils Percent Auto 75.9 % (45-73); Platelet Count 355 X10*3/uL (160-400); Red Blood Count 4.41 X10*6/uL (4.20-5.50); Red Cell Distribution Width 16.9 % (11.0-16.0); White Blood Count 7.8 X10*3/uL (4.8-10.8)
[2023-12-03 10:04] LABS: Alanine Aminotransferase 12 U/L (0-31); Albumin Level 3.4 g/dL (3.5-5.0); Alkaline Phosphatase 43 U/L (39-117); Anion Gap 11 (12-20); Aspartate Amino Transferase 20 U/L (5-31); Bilirubin Total 0.3 mg/dL (0.0-1.0); Blood Urea Nitrogen 10 mg/dL (9-16); Calcium 8.3 mg/dL (8.4-10.2); Carbon Dioxide 25 mmol/L (22-29); Chloride 103 mmol/L (96-108); Creatinine Clr Calc Pharmacy 44.5; Estimated Glomerular Filt Rate > 60; Glucose Random 87 mg/dL (60-115); Lipase 186 U/L (8-78); Sodium 135 mmol/L (135-145); Total Protein 6.3 g/dL (6.5-8.0)
[2023-12-03 10:42] LABS: Appearance Urine Clear; Color Urine Yellow; Glucose Urine UA Negative (Negative); Leukocyte Esterase Urine Negative (Negative); Nitrite Urine Negative (Negative); Specific Gravity - Urine <= 1.005 (1.005-1.025); Urine Blood Negative (Negative); Urine Ketones Negative (Negative); Urine Protein Negative (Neg-Trace)
--- NOTE | 2023-12-03 12:17 | PHA.MEDREC ---
Pharmacy Consult ? Medication Reconciliation Pharmacy has completed the medication reconciliation. Spoke to patient and her son. Patient states she only gets reclast once yearly and last got it infused in june 2023. Patient also states shes on a new cranberry supplement that she thinks could be causing her issues. Son said he will bring in the supplement for pharmacy to look at if needed. Patient also stated she only uses premarin cream on mondays and fridays and she does not plan on bringing it in.
--- NOTE | 2023-12-03 12:42 | P.HPHOSP_ITS ---
History of Present Illness Date of Service: 12/03/23 Attending physician on admission: Robin Steinberg Chief Complaint: diarrhea, abd pain 78-year-old female with history of pulmonary fibrosis, glaucoma, vitamin-D deficiency, osteoporosis, and chronic constipation presents to the ER with her sons, Quinton and Ta (with whom she lives), for evaluation of diarrhea and abdominal cramping ongoing for 1 week. She states she has had multiple episodes of watery diarrhea associated with lower abdominal cramping that resolves following bowel movement. No nausea or vomiting. No fevers. Denies any recent antibiotic use, recent travel, or sick contacts. She states following a bowel movement she feels lightheaded with pallor that resolved shortly but has not syncopized. She also tells me that she has been experiencing dysphagia to nearly all foods and sometimes water to the point of aspiration for about 3 years since she underwent cervical diskectomy with anterior approach. Has never been treated for an aspiration pneumonia. She has been using Imodium for her symptoms. She denies any melena or hematochezia. Her last colonoscopy was 10 years ago without abnormal finding. No personal family history of colon cancer. She ortega rodriguez me she underwent EGD about 3 years ago due to dysphagia which was read as normal by GI provider at [facility], but states she was shown pictures of her esophagus which was primarily read with a protruding purple vessel which she is concerned could be causing bleeding. She is tolerating soft diet. On arrival, vital stable though mildly hypertensive on admission to 154/68. No leukocytosis. There has been a gradual drop in H/H over the past 6 months. H/H today 9.5/31.0% (06/03-H/H 13.3/39.4, 09/03 11.0/35.7%, 09/20/23- 10.7/34.2%). Renal function baseline, lytes normal except for mild hypocalcemia. Lipase 186. UA negative. CT abd/pelvis negative for acute intra-abd abnormality. In the ED, stool occult blood positive. In the ED, given 1 L IVF and 40mg IV PPI. Review of Systems 2 Review of Systems: General: No fevers, malaise, unintentional weight loss HEENT: No blurred vision, diplopia. No sore throat, nasal congestion, rhinorrhea, sinus pain, ear pain Cardiovascular: No chest pain, palpitations, or leg edema Respiratory: No shortness of breath, wheezing, cough GI: +abd pain, +diarrhea. No nausea, vomiting, constipation, melena, hematochezia : No dysuria, hematuria, increased urinary frequency MSK: No myalgia, back pain Neuro: No headaches, weakness, paresthesias. +lightheadedness Skin: No rashes or lesions [facility] Medical History Pulmonary fibrosis Glaucoma Vitamin D deficiency Hypercalciuria Osteoporosis Family History Father Lung cancer Mother CVD (cardiovascular disease) Surgical History History of endoscopy History of surgery on wrist Hx of neck surgery Hx of adenoidectomy Hx of tonsillectomy Hx of colonoscopy Hx of hammer toe correction History of carpal tunnel surgery Social History Household Members: None Alcohol intake: never Patient Tobacco Use Status: Former Tobacco user Years Smoked: 5 Advance Directives: No Advance Directives Information Provided: Yes Meds Allergies Allergy/AdvReac Type Severity Reaction Status Date / Time Sulfa (Sulfonamide Allergy Severe Anaphylaxis Verified 12/03/23 08:40 Antibiotics) codeine [CODEINE] Allergy Intermediate GI UPSET Verified 12/03/23 08:40 erythromycin base AdvReac Severe gi upset Verified 12/03/23 08:40 Active Medications: Current Medications Sodium Chloride (Ns) 1,000 mls @ 200 mls/hr IVCONT .Q5H KAR Stop: 12/03/23 13:59 Last Admin: 12/03/23 09:39 Dose: 200 mls/hr Home Medications Medication Instructions Recorded Confirmed Last Taken Type cranberry 400 mg capsule 400 mg PO DAILY 11/22/20 12/03/23 Unknown History docusate sodium 100 mg capsule 100 mg PO DAILY 11/22/20 12/03/23 Unknown History (Colace) estradiol 0.01% (0.1 mg/gram) 1 g vaginal 2XW 11/30/21 12/03/23 Unknown History vaginal cream omeprazole 20 mg capsule,delayed 20 mg PO DAILY PRN Acid Reflux 06/16/22 12/03/23 Unknown History release zoledronic acid 5 mg/100 mL in 1 ea IV Q365D 06/16/22 12/03/23 5 Months Ago History mannitol 5 %-water intravenous ~07/03/23 piggybck (Reclast) albuterol sulfate 90 mcg/actuation 90 mcg inhalation Q4H 12/05/22 12/03/23 Unknown History aerosol inhaler paroxetine HCl 10 mg tablet 10 mg PO QAM 12/03/23 12/03/23 Unknown History Physical Exam 2 Vital Signs and Narrative: Vital Signs: Last Vital Signs Temp 98.1 F 12/03/23 11:22 Pulse 74 12/03/23 11:22 Resp 16 12/03/23 11:22 BP 154/68 H 12/03/23 11:22 Pulse Ox 99 12/03/23 11:22 O2 Del Method Room Air 12/03/23 11:22 BMI result Body Mass Index 19.1 Constitutional - Awake and Alert, No apparent distress Eyes - PERRLA, EOMI Cardiovascular - S1S2, RRR, No edema Respiratory - Normal lung expansion, Normal respiratory effort, No respiratory distress, scattered expiratory wheezes upper lobes, crackles b/l lower lobes Gastrointestinal - mild ttp bilateral lower quadrants without guarding or rebound, ND; +BS Extremities - no calf tenderness bilaterally, no swelling Skin - Warm/Dry Neurological - Alert & oriented x3 Psychological - Appropriate affect Results Labs 12/03/23 09:37 12/03/23 09:37 Labs: Laboratory Results - last 24 hr 12/03/23 12/03/23 09:37 10:35 MCV 70.3 L MCH 21.5 L MCHC 30.6 L RDW 16.9 H Plt Count 355 MPV 10.3 Immature Gran % (Auto) 0.3 Neut % (Auto) 75.9 H Lymph % (Auto) 11.8 L [place] % (Auto) 10.6 Eos % (Auto) 0.8 Baso % (Auto) 0.6 Lymph # (Auto) 0.9 L [place] # (Auto) 0.8 Eos # (Auto) 0.1 Baso # (Auto) 0.1 Abs Immat Gran (auto) 0.02 Absolute Neuts (auto) 5.9 Absolute Nucleated RBC 0.000 Nucleated RBC % (auto) 0.0 Anion Gap 11 L Estim Creat Clear Calc 44.5 Estimated GFR > 60 Random Glucose 87 Calcium 8.3 L D Total Bilirubin 0.3 AST 20 ALT 12 Alkaline Phosphatase 43 Total Protein 6.3 L Albumin 3.4 L Lipase 186 H Urine Color Yellow Urine Appearance Clear Urine pH 6.0 Ur Specific [place] <= 1.005 Urine Protein Negative Urine Glucose (UA) Negative Urine Ketones Negative Urine Blood Negative Urine Nitrite Negative Ur Leukocyte Esterase Negative Imaging Radiologist's Impressions: Impressions Abdomen/Pelvis CT 12/03/23 09:19 IMPRESSION: 1. A cause for the patient's diffuse abdominal pain and diarrhea has not been found. 2. Incidental note made of pulmonary fibrosis, degenerative changes in the spine, anemia and a pessary. Fleischner guidelines were followed. Assessment and Plan (1) Diarrhea: Status: Acute (2) GI (gastrointestinal bleed): Status: Acute (3) Vasovagal near syncope: Status: Acute Plan 78-year-old female with history of pulmonary fibrosis, glaucoma, vitamin-D deficiency, osteoporosis, and chronic constipation admitted for acute blood loss anemia with GI bleed. #Acute on chronic blood loss anemia- due to suspected GI bleed -H/H gradually falling over last few months, today H/H 9.5/31.0 (baseline H/H 13.3/39.4% 05/25/2023) -CT abdomen/pelvis does not show any evidence of acute intra abdominal abnormality -Last colo 10 years ago w/o abnormality per pt. Has EGD 3 years ago which she reports had a bulging vessel? -Stool occult blood positive -iron sudies pending -IV PPI -Gi consult- suspect will need scope -Clear liquids, NPO after midnight -Monitor on tele -follow H/H, currently above transfusion threshold #Acute diarrhea- present on admission -GI panel and CDiff PCR pending -hold on antidiarrheals at this time #Lightheadedness -likely vasovagal due to above, no syncope #Elevatd lipase -no clinical/imaging evidence of pancreatitis #Chronic dysphagia -DIETARY AIDE COOK eval #Pulmonary fibrosis -stable -albuterol prn #Osteoporosis/hypocalcemia -continue home supplements #Unspecified mood disorder -continue paxil DVT prophylaxis- SCPs Full code Pt will require inpt stay at least 2 midnights due to acute blood loss anemia with persistent diarrhea requiring close monitoring or blood counts, stool studies to determine etiology, as well as expert consultation and probable investiation with egd/colonoscopy which should be completed inpt given ongoing bleeding with vasovagal near syncope. Quality Stroke Does the patient have a stroke diagnosis?: No VTE Prior VTE?: No VTE Risk Level:: Medical - moderate - high VTE Device Contraindication: N/A - Device Ordered VTE Drug Contraindication: Treatment Not Indicated
--- NOTE | 2023-12-03 13:02 | MHC.EDTECH ---
Pt was to have sons bring home clothes and purse, however they are still with her. This was noted on belongings list. Signed by t/w and Pt herself.
[2023-12-03 13:32] LABS: Iron 15 mcg/dL (30-160); Percent Iron Saturation 5 % (15-50); Total Iron Binding Capacity 299 mcg/dL (228-428); Unsaturated Iron Binding 284 ug/dL
[2023-12-03 13:52] LABS: Ferritin 6 ng/mL (10-250)
[2023-12-03] MEDS: PARoxetine HCL 10 MG TABLET PO (14:35)
[2023-12-03] MEDS: Pantoprazole Sodium 40 MG/10 ML VIAL IVPUSH (14:35)
--- NOTE | 2023-12-03 14:43 | MHC.CM.PN ---
CM met with Patient at bedside and addressed IMM with her;original was given to Patient and a copy has been placed on the chart. 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 Home/self care is the goal and CM has initiated and will follow for dc planning. PCP is Dr. ROMEO Vaughn (not Johnnie).
--- NOTE | 2023-12-03 17:21 | MHC.SL.SWA ---
Speech Pathologist Impression: Risk of Aspiration Due to: Poor PO Intake Dysphasia Diet Status: Clear Liquids Liquid Consistency and Strategies for Safe Swallow: Liquid Intake Recommendation: Thin Liquid Intake Strategies: Small Sips No Straws Solid Food Consistency: Dietary Recommendations: Chopped/Advanced (NDD3) Additional Modifications to Solid Foods: Oral Medication Intake: Whole with Puree Please contact the pharmacy regarding appropriate crushable or liquid drug formulations that are available whenever modified delivery is recommended. Compensatory Strategies and Precautions to be Taken for Safe Swallow: Sitting Upright (90 deg) Small Bites and Sips Alternate Liquids/Solids Rate of Ingestion Change Supervision While Eating and Drinking for Safe Swallow: Total Assistance (1:1) Foods to Avoid: Avoid mixed consistencies (i.e. soups, cereals), sticky textures, nuts, and dry crumbly/crunchy foods Swallowing Recommended Treatments: Compens. Strategy Educat. Recommendation for Speech: Inpatient Speech Therapy Comment: Pt to remain on Clear Liquids until cleared by GI. When ready to resume diet, recommend CHOPPED/ADVANCED SOLIDS (NDD3) and THIN LIQUIDS. MEDS WHOLE with PUREE. Recommend esophageal dysphagia precautions including sitting upright before and after meals (>30mins.), alternating bites/sips, chewing food well. WELLNESS HEALTH COACH will continue to follow. Frequency/Duration: Daily Date Range for Service Req: Unknown Timeline to reassess: PRN Dining Room Supervisor Clinican/Clinical Fellow: No Supervisory Statement: I have reviewed and agree with the student/clinical fellow's documentation: N/A Speech Language Pathologist: Rudolph Zamudio M.A., CCC-[facility] COACH
[2023-12-03] MEDS: PEG 3350/Na Sulf,Bicarb,Cl/KCL 4,000 ML SOLN.RECON 4000 ML PO (18:53)
[2023-12-03 22:00] LABS: CDiff Gene PCR NEGATIVE (Negative)
[2023-12-04] VITALS (13 sets, daily range): BP systolic 115–165; BP diastolic 52–73; PULSE 65–87; RESP 15–20; TEMP 36.1–37.5; O2SAT 95–100; BMI 19.2
--- NOTE | 2023-12-04 01:52 | CONS_ITS ---
DATE OF SERVICE: 12/03/2023 REFERRING PHYSICIAN: ELLEN Fernandez REASON FOR CONSULTATION: GI bleeding. HISTORY OF PRESENT ILLNESS: The patient is a pleasant 78-year-old woman who was admitted to the hospital with diarrhea and abdominal pain. She reports nonbloody diarrhea at home with abdominal cramping that is improved after bowel movements. There has been no associated fevers, chills, nausea or vomiting, recent travel, or ill contacts. She also has chronic complaints of dysphagia and has previously undergone motility testing in [place] showing a hypercontractile esophagus. Previous endoscopy several years ago was remarkable for a hiatal hernia. Biopsies were obtained, which showed no evidence of eosinophilic esophagitis. She has been treated with a proton pump inhibitor in the past. Previous colonoscopy in 2012 for change of bowel habits showed diverticulosis and internal hemorrhoids. In the emergency department, she was evaluated with lab work documenting anemia with a hematocrit of 31 and an MCV of 70 consistent with iron deficiency. Stool occult blood testing was reportedly positive. She has had no abraham melena since admission. PAST MEDICAL HISTORY: 1. Pulmonary fibrosis. 2. Osteoporosis. 3. Vitamin D deficiency. 4. Glaucoma. 5. Hypercalciuria. CURRENT MEDICATIONS: Her current medication list is reviewed in the chart. ALLERGIES: MULTIPLE ALLERGIES REVIEWED. FAMILY HISTORY: This is reviewed with the patient and is noncontributory. SOCIAL HISTORY: There is no current tobacco, alcohol, or substance abuse. REVIEW OF SYSTEMS: SKIN: No pruritus. HEENT: Negative. CARDIOPULMONARY: She denies shortness of breath or chest pain. GASTROINTESTINAL: As above. GENITOURINARY: Negative. NEUROPSYCHIATRIC: Negative. PHYSICAL EXAMINATION: GENERAL: Shows a pleasant female, in no acute distress. VITAL SIGNS: Reviewed in the electronic medical record and are stable. SKIN: Anicteric. HEENT: Shows no scleral icterus. NECK: Without lymphadenopathy or thyromegaly. LUNGS: Clear. HEART: Shows a regular rate and rhythm. S1, S2. No murmur. ABDOMEN: Soft without focal masses or tenderness. Bowel sounds are present. No organomegaly is noted. EXTREMITIES: Without edema. LABORATORY DATA AND IMAGING STUDIES: Reviewed. IMPRESSION: Anemia with Hemoccult-positive stools. I have discussed endoscopy and colonoscopy with her. She understands risks and benefits and agrees to proceed. This will be arranged for tomorrow. Her iron studies show saturation of 5% and a ferritin of 6 consistent with iron deficiency anemia. MD JAMAR Moreno/[place] / [phone]
[2023-12-04] MEDS: 0.9 % Sodium Chloride Flush 3 ML SYRINGE IVFLUSH ×2 (02:47→05:42)
[2023-12-04] MEDS: Pantoprazole Sodium 40 MG/10 ML VIAL IVPUSH ×2 (05:42→16:27)
[2023-12-04 06:03] LABS: MANUAL DIFF FLAG NO
[2023-12-04 06:27] LABS: Anion Gap 13 (12-20); Blood Urea Nitrogen 6 mg/dL (9-16); Calcium 8.1 mg/dL (8.4-10.2); Carbon Dioxide 25 mmol/L (22-29); Chloride 105 mmol/L (96-108); Creatinine Clr Calc Pharmacy 46.7; Estimated Glomerular Filt Rate > 60; Glucose Random 74 mg/dL (60-115); Potassium 3.5 mmol/L (3.3-5.1); Sodium 139 mmol/L (135-145)
[2023-12-04 06:32] LABS: Basophils Percent Auto 0.4 % (0-2); Eosinophils Absolute Auto 0.2 X10*3/uL (0.0-0.4); Eosinophils Percent Auto 2.2 % (0-4); Hematocrit 29.9 % (37.0-47.0); Hemoglobin 9.3 g/dl (12.0-16.0); Imm Gran Abs Auto 0.02 X10*3/uL (0.00-0.03); Imm Gran Pct Auto 0.3 % (0.0-0.4); Lymphocytes Percent Auto 28.8 % (20-40); Mean Corpuscular HGB Conc 31.1 g/dl (31.0-35.0); Mean Corpuscular Hemoglobin 21.6 pg (27.0-33.0); Mean Corpuscular Volume 69.5 fL (80.0-98.0); Mean Platelet Volume 10.7 fL (9.4-12.3); Monocytes Absolute Auto 0.7 X10*3/uL (0.1-1.2); Monocytes Percent Auto 10.4 % (2-11); Neutrophils Percent Auto 57.9 % (45-73); Platelet Count 325 X10*3/uL (160-400); Red Cell Distribution Width 17.4 % (11.0-16.0); White Blood Count 6.9 X10*3/uL (4.8-10.8)
[2023-12-04] MEDS: Albuterol Sulfate 90 MCG 8 GM INHALER 1 PUFF INHALE ×4 (07:25→19:26)
--- NOTE | 2023-12-04 09:40 | P.PNIM_ITS ---
Subjective Subjective Date of Service: 12/04/23 Interval History: successful colonsocopy prep Physical Exam 2 Vital Signs: Vital Signs: Last Vital Signs Temp 97.1 F 12/04/23 07:04 Pulse 68 12/04/23 07:27 Resp 15 12/04/23 07:27 BP 137/70 12/04/23 07:04 Pulse Ox 97 12/04/23 07:04 O2 Del Method Room Air 12/04/23 07:04 BMI result Body Mass Index 19.2 General: AO X 3, no acute distress Resp: CTA bilateral, no accessory muscles used CVS: S1,S2,RRR GI: soft, non tender, non distended Neuro: motor grossly intact, alert Psych: appropriate affect, appropriate insight Objective Data Active Medications Acetaminophen (Acetaminophen 325 Mg Tablet) 650 mg PO Q6H PRN PRN Reason: Pain, Mild (Pain Scale 1-3) Albuterol Sulfate (Albuterol Sulfate 90 Mcg 8 Gm Inhaler) 1 puff INHALE Q4H [facility] Last Admin: 12/04/23 07:25 Dose: 1 puff Documented By: ADDISON Calcium Carbonate/Cholecalciferol (Calcium + Vitamin D 250 Mg Tablet) 250 mg PO DAILY [facility] Ondansetron HCl (Ondansetron Hcl 4 Mg/2 Ml Vial) 4 mg IVPUSH Q8H PRN PRN Reason: Nausea and Vomiting Pantoprazole Sodium (Pantoprazole Sodium 40 Mg/10 Ml Vial) 40 mg IVPUSH BID@0630,1630 [facility] Last Admin: 12/04/23 05:42 Dose: 40 mg Documented By: BROCK Paroxetine HCl (Paroxetine Hcl 10 Mg Tablet) 10 mg PO DAILY [facility] Last Admin: 12/03/23 14:35 Dose: 10 mg Senna (Sennosides 8.6 Mg Tablet) 17.2 mg PO BEDTIME PRN PRN Reason: Constipation Sodium Chloride (0.9 % Sodium Chloride Flush 3 Ml Syringe) 3 ml IVFLUSH QSHIFT [facility] Last Admin: 12/04/23 05:42 Dose: 3 ml Documented By: BROCK Vitamin D (Cholecalciferol (Vitamin D3) 25 Mcg Tablet) 25 mcg PO DAILY [facility] Labs 12/04/23 05:46 12/04/23 05:46 Labs: Laboratory Results - last 24 hr 12/03/23 12/03/23 12/03/23 09:37 10:35 18:24 MCV 70.3 L MCH 21.5 L MCHC 30.6 L RDW 16.9 H Plt Count 355 MPV 10.3 Immature Gran % (Auto) 0.3 Neut % (Auto) 75.9 H Lymph % (Auto) 11.8 L [place] % (Auto) 10.6 Eos % (Auto) 0.8 Baso % (Auto) 0.6 Lymph # (Auto) 0.9 L [place] # (Auto) 0.8 Eos # (Auto) 0.1 Baso # (Auto) 0.1 Abs Immat Gran (auto) 0.02 Absolute Neuts (auto) 5.9 Absolute Nucleated RBC 0.000 Nucleated RBC % (auto) 0.0 Anion Gap 11 L Estim Creat Clear Calc 44.5 Estimated GFR > 60 Random Glucose 87 Calcium 8.3 L D Iron 15 L TIBC 299 % Saturation 5 L Unsat Iron Binding 284 Ferritin 6 L Total Bilirubin 0.3 AST 20 ALT 12 Alkaline Phosphatase 43 Total Protein 6.3 L Albumin 3.4 L Lipase 186 H Urine Color Yellow Urine Appearance Clear Urine pH 6.0 Ur Specific [place] <= 1.005 Urine Protein Negative Urine Glucose (UA) Negative Urine Ketones Negative Urine Blood Negative Urine Nitrite Negative Ur Leukocyte Esterase Negative C. difficile Tox B Gene NEGATIVE 12/04/23 05:46 MCV 69.5 L MCH 21.6 L MCHC 31.1 RDW 17.4 H Plt Count 325 MPV 10.7 Immature Gran % (Auto) 0.3 Neut % (Auto) 57.9 Lymph % (Auto) 28.8 [place] % (Auto) 10.4 Eos % (Auto) 2.2 Baso % (Auto) 0.4 Lymph # (Auto) 2.0 [place] # (Auto) 0.7 Eos # (Auto) 0.2 Baso # (Auto) 0.0 Abs Immat Gran (auto) 0.02 Absolute Neuts (auto) 4.0 Absolute Nucleated RBC 0.000 Nucleated RBC % (auto) 0.0 Anion Gap 13 Estim Creat Clear Calc 46.7 Estimated GFR > 60 Random Glucose 74 Calcium 8.1 L Iron TIBC % Saturation Unsat Iron Binding Ferritin Total Bilirubin AST ALT Alkaline Phosphatase Total Protein Albumin Lipase Urine Color Urine Appearance Urine pH Ur Specific [place] Urine Protein Urine Glucose (UA) Urine Ketones Urine Blood Urine Nitrite Ur Leukocyte Esterase C. difficile Tox B Gene Assessment and Plan (1) Diarrhea: Status: Acute Plan 78F PMH pulmonary fibrosis, glaucoma, vit d deficiency, osteoporosis, chronic constipation, presented with diarrhea and abd pain, found to have iron deficiency anemia chronic iron deficiency anemia due to suspected lower gi bleed plan for egd/colonscopy today, hgb stable monitor continue ppi dysphagia egd ela teacher diarrhea follow up pcr pulmonary fibrosis stable mood diosrder paxil dvt prophyalxis - scp due to suspected bleed full code reason for continued hospitalization: plan for scope today Quality Stroke Does the patient have a stroke diagnosis?: No VTE Prior VTE?: No VTE Risk Level:: Medical - moderate - high VTE Device Contraindication: N/A - Device Ordered VTE Drug Contraindication: Treatment Not Indicated
--- NOTE | 2023-12-04 12:09 | MHC.SPEECHCO ---
Pt NPO for EGD and Colonoscopy later today. Previous recommendations for Chopped/Advanced (NDD3) and Thin Liquids if medically cleared. STAFFING MANAGER following.
--- NOTE | 2023-12-04 12:41 | HO.ANESPROP2 ---
HPI - Anesthesia Eval Consult details Narrative: 78 yo female patient for EGD, Colonoscopy [facility] Active Problems Active Problems: All Active Problems (Updated 12/04/23 @ 12:40 by Radha Burgess MD) Vasovagal near syncope (Acute) Diarrhea (Acute) GI (gastrointestinal bleed) (Acute) Right inguinal hernia (Acute) Cervical spondylosis (Acute) Chronic pain of both shoulders (Acute) Muscle spasms of neck (Acute) Occipital neuralgia of right side (Acute)- wears soft cervical collar. Helps with neck pain. Cervicalgia (Acute) Stiffness of right hand joint (Acute) Distal radius fracture, right (Acute) Pulmonary fibrosis (Acute) Vitamin D deficiency (Acute) Hypercalciuria (Acute) Osteoporosis (Acute) No UE weakness/ numbness/neurological symptoms Past Medical History Medical History Pulmonary fibrosis Glaucoma Vitamin D deficiency Hypercalciuria Osteoporosis Family History Family History Father Lung cancer Mother CVD (cardiovascular disease) Family history of problems with anesthesia: No Surgical History Surgical History History of endoscopy History of surgery on wrist Hx of neck surgery Hx of adenoidectomy Hx of tonsillectomy Hx of colonoscopy Hx of hammer toe correction History of carpal tunnel surgery History of Problems with Anesthesia: Yes (PONV) Social History Social History Household Members: Children Housing: House Alcohol intake: never Patient Tobacco Use Status: Former Tobacco user Years Smoked: 5 service: No Meds Allergies Allergy/AdvReac Type Severity Reaction Status Date / Time Sulfa (Sulfonamide Allergy Severe Anaphylaxis Verified 12/03/23 08:40 Antibiotics) codeine [CODEINE] Allergy Intermediate GI UPSET Verified 12/03/23 08:40 erythromycin base AdvReac Severe gi upset Verified 12/03/23 08:40 Active Medications: Current Medications Acetaminophen (Acetaminophen 325 Mg Tablet) 650 mg PO Q6H PRN PRN Reason: Pain, Mild (Pain Scale 1-3) Albuterol Sulfate (Albuterol Sulfate 90 Mcg 8 Gm Inhaler) 1 puff INHALE Q4H [facility] Last Admin: 12/04/23 11:18 Dose: 1 puff Calcium Carbonate/Cholecalciferol (Calcium + Vitamin D 250 Mg Tablet) 250 mg PO DAILY [facility] Ondansetron HCl (Ondansetron Hcl 4 Mg/2 Ml Vial) 4 mg IVPUSH Q8H PRN PRN Reason: Nausea and Vomiting Pantoprazole Sodium (Pantoprazole Sodium 40 Mg/10 Ml Vial) 40 mg IVPUSH BID@0630,1630 [facility] Last Admin: 12/04/23 05:42 Dose: 40 mg Paroxetine HCl (Paroxetine Hcl 10 Mg Tablet) 10 mg PO DAILY [facility] Last Admin: 12/03/23 14:35 Dose: 10 mg Senna (Sennosides 8.6 Mg Tablet) 17.2 mg PO BEDTIME PRN PRN Reason: Constipation Sodium Chloride (0.9 % Sodium Chloride Flush 3 Ml Syringe) 3 ml IVFLUSH QSHIFT [facility] Last Admin: 12/04/23 12:15 Dose: Not Given Vitamin D (Cholecalciferol (Vitamin D3) 25 Mcg Tablet) 25 mcg PO DAILY [facility] Home Medications Medication Instructions Recorded Confirmed Last Taken Type cranberry 400 mg capsule 400 mg PO DAILY 11/22/20 12/03/23 Unknown History docusate sodium 100 mg capsule 100 mg PO DAILY 11/22/20 12/03/23 Unknown History (Colace) estradiol 0.01% (0.1 mg/gram) 1 g vaginal 2XW 11/30/21 12/03/23 Unknown History vaginal cream omeprazole 20 mg capsule,delayed 20 mg PO DAILY PRN Acid Reflux 06/16/22 12/03/23 Unknown History release zoledronic acid 5 mg/100 mL in 1 ea IV Q365D 06/16/22 12/03/23 5 Months Ago History mannitol 5 %-water intravenous ~07/03/23 piggybck (Reclast) albuterol sulfate 90 mcg/actuation 90 mcg inhalation Q4H 12/05/22 12/03/23 Unknown History aerosol inhaler paroxetine HCl 10 mg tablet 10 mg PO QAM 12/03/23 12/03/23 Unknown History Exam Height,Weight and Vital Signs: Height 4 ft 10 in Weight 41.7 kg Last Vital Signs Temp 97.6 F 12/04/23 12:23 Pulse 78 01/23/24 12:23 Resp 16 12/04/23 12:23 BP 134/62 12/04/23 12:23 Pulse Ox 97 12/04/23 12:23 O2 Del Method Room Air 12/04/23 12:23 Pertinent Lab Results Pertinent Lab Results: Laboratory Tests 12/03/23 12/03/23 12/03/23 09:37 10:35 18:24 WBC 7.8 RBC 4.41 Hgb 9.5 L Hct 31.0 L MCV 70.3 L MCH 21.5 L MCHC 30.6 L RDW 16.9 H Plt Count 355 MPV 10.3 Immature Gran % (Auto) 0.3 Neut % (Auto) 75.9 H Lymph % (Auto) 11.8 L [place] % (Auto) 10.6 Eos % (Auto) 0.8 Baso % (Auto) 0.6 Lymph # (Auto) 0.9 L [place] # (Auto) 0.8 Eos # (Auto) 0.1 Baso # (Auto) 0.1 Abs Immat Gran (auto) 0.02 Absolute Neuts (auto) 5.9 Absolute Nucleated RBC 0.000 Nucleated RBC % (auto) 0.0 Sodium 135 Potassium 4.0 Chloride 103 Carbon Dioxide 25 Anion Gap 11 L BUN 10 Creatinine 0.65 Estim Creat Clear Calc 44.5 Estimated GFR > 60 Random Glucose 87 Calcium 8.3 L D Iron 15 L TIBC 299 % Saturation 5 L Unsat Iron Binding 284 Ferritin 6 L Total Bilirubin 0.3 AST 20 ALT 12 Alkaline Phosphatase 43 Total Protein 6.3 L Albumin 3.4 L Lipase 186 H Urine Color Yellow Urine Appearance Clear Urine pH 6.0 Ur Specific [place] <= 1.005 Urine Protein Negative Urine Glucose (UA) Negative Urine Ketones Negative Urine Blood Negative Urine Nitrite Negative Ur Leukocyte Esterase Negative C. difficile Tox B Gene NEGATIVE 12/04/23 05:46 WBC 6.9 RBC 4.30 Hgb 9.3 L Hct 29.9 L MCV 69.5 L MCH 21.6 L MCHC 31.1 RDW 17.4 H Plt Count 325 MPV 10.7 Immature Gran % (Auto) 0.3 Neut % (Auto) 57.9 Lymph % (Auto) 28.8 [place] % (Auto) 10.4 Eos % (Auto) 2.2 Baso % (Auto) 0.4 Lymph # (Auto) 2.0 [place] # (Auto) 0.7 Eos # (Auto) 0.2 Baso # (Auto) 0.0 Abs Immat Gran (auto) 0.02 Absolute Neuts (auto) 4.0 Absolute Nucleated RBC 0.000 Nucleated RBC % (auto) 0.0 Sodium 139 Potassium 3.5 Chloride 105 Carbon Dioxide 25 Anion Gap 13 BUN 6 L Creatinine 0.62 Estim Creat Clear Calc 46.7 Estimated GFR > 60 Random Glucose 74 Calcium 8.1 L Iron TIBC % Saturation Unsat Iron Binding Ferritin Total Bilirubin AST ALT Alkaline Phosphatase Total Protein Albumin Lipase Urine Color Urine Appearance Urine pH Ur Specific [place] Urine Protein Urine Glucose (UA) Urine Ketones Urine Blood Urine Nitrite Ur Leukocyte Esterase C. difficile Tox B Gene Airway Mallampati Class: II TM Dist: >3cm Neck ROM: Full (but h/o cervical disc surgery. Posterior neck pain from occipital neuralgia) Partial: Upper Heart: Irregular. PACs Lungs: CTAB Assessment and Plan Assessment Anesthesia Assessment: Anesthesia Plan Discussed and Chart Reviewed Final Anesthetic Review Family History of Problems with Anesthesia: No History of Problems with Anesthesia: Yes (PONV) NPO: Yes ASA Class: III and Emergency Final Preanesthetic Review: No Changes in Pt Med Stat, Meds/Allgs Chart Reviewed, Consent Obtained/Reviewed and Anes Risks/Benef Reviewed Patient Risk: Intermediate Procedure Risk: Low Assessment/Block/Sedation in SS: Assess/Block/Sedation-SS Anesthetic Plan Anesthetic Plan: MAC: and TIVA Disposition: Standard PACU and Inp. Admit - IMC
--- NOTE | 2023-12-04 12:53 | MHC.SHP ---
Pre-Procedural Eval Section A Date of Service: 12/04/23 The patient is an INPATIENT: Yes Changes since office visit: No Cold of Flu in the past 2 weeks, No New Medical Problems, No Changes in Medication and No Patient answered all questions The History & Physical has been completed within 30 days and I have reviewed it.: Yes Section B Chief Complaint: GI bleed blood loss anemia Allergies: Allergies Allergy/AdvReac Type Severity Reaction Status Date / Time Sulfa (Sulfonamide Allergy Severe Anaphylaxis Verified 12/03/23 08:40 Antibiotics) codeine [CODEINE] Allergy Intermediate GI UPSET Verified 12/03/23 08:40 erythromycin base AdvReac Severe gi upset Verified 12/03/23 08:40 Plan I have reviewed the history and physical and performed a pertinent physical examination on my patient. No changes have occurred unless specified. Time Spent With Patient Time: Total time managing care of this patient today ____ minutes.
--- NOTE | 2023-12-04 13:39 | P.BOP_ITS ---
Brief Operative Note Date of Service: 12/04/23 Pre-op diagnosis: iron def anemia heme pos stool Post-op diagnosis: same (hiatal hernia, r colon mass) Procedure: EGD Colonoscopy Surgeon: Zach Reza MD Was an Oil Heater Operator used for this Procedure?: No Estimated blood loss (mL): 5 Pathology: other Condition: stable Disposition: PACU
--- NOTE | 2023-12-04 13:43 | PM.EVENT ---
Event Note Date of Service: 12/04/23 Event Note: EGD/colonoscopy dictated EGD shows a small hiatal hernia, otherwise normal 4x5 cm ulcerated mass lesion in R colon, biopsied and marked with edelmira ink. Rec Surgery consult monitor hct fu bx results. Time Spent With Patient Time: Total time managing care of this patient today ____ minutes.
--- NOTE | 2023-12-04 14:30 | MHC.SPEECHCO ---
Pt cleared to eat again by GI. Diet order changed from Regular to Chopped/Advanced (NDD3) per most recent OUTSOLE COMPRESSOR assessment.
--- NOTE | 2023-12-04 14:40 | P.CONGS_ITS ---
<Statement entered by Isreal Escobar MD - 12/04/23 16:15> 78-year-old female patient presenting with complaints of crampy abdominal pain and diarrhea, anemia admitted to the hospitalist service for further evaluation. Patient reports symptoms have been increasing in severity but is unaware of any bleeding per rectum. Patient underwent colonoscopy today by Dr. Reza and was found to have a 4 x 5 cm right colon mass suspicious for malignancy. Biopsies are pending at this time. I reviewed the colonoscopy findings in detail with the patient. As the patient is symptomatic from this lesion and has already undergone bowel prep for the colonoscopy, I would recommend proceeding to a hand assisted laparoscopic right colectomy. I reviewed the procedure, risks and alternatives in detail and she consents to the hand assisted laparoscopic right colectomy. She will be added onto the OR schedule for tomorrow. History of Present Illness Consult details Consult date: 12/04/23 Reason for consult: other Narrative: 78 year old female with a past medical history significant for mild pulmonary fibrosis initially presented to the ED with lightheadedness. Patient states she has had diarrhea followed by cramping right lower abdominal pain since last . patients sought evaluation in the emergency department after developing lightheadedness and a near syncopal episode. Patient denies seeing bright red blood or dark tarry stools prior to admission. Previous colonoscopy in 2012 for change of bowel habits showed diverticulosis and internal hemorrhoids. In the ED, the workup included a CBC, BMP, which was significant for H/h 9.5/31 and a positive stool occult blood. GI was consulted and EGD colonoscopy was performed which revealed a 4x5 right colon mass. General surgery was consulted for further treatment. Review of Systems 2 Constitutional: Constitutional: Denies fever(s) Cardiovascular: Cardiovascular: Reports palpitations and Denies dyspnea Respiratory: Respiratory: Denies dyspnea Gastrointestinal: Gastrointestinal: Reports as per HPI, Denies nausea and Denies vomiting Genitourinary: Genitourinary: Reports as per HPI Endocrine: Endocrine: Reports palpitations PMFSH Past Medical History Medical History (Updated 12/04/23 @ 15:22 by Makeda Taylor PA-C) Pulmonary fibrosis Glaucoma Vitamin D deficiency Hypercalciuria Osteoporosis Family History Family History Father Lung cancer Mother CVD (cardiovascular disease) Surgical History Surgical History (Updated 12/04/23 @ 15:23 by Makeda Taylor PA-C) Hx of appendectomy History of endoscopy History of surgery on wrist Hx of neck surgery Hx of adenoidectomy Hx of tonsillectomy Hx of colonoscopy Hx of hammer toe correction History of carpal tunnel surgery Social History Social History Household Members: Children Housing: House Alcohol intake: never Patient Tobacco Use Status: Former Tobacco user Years Smoked: 5 service: No Meds Allergies Allergy/AdvReac Type Severity Reaction Status Date / Time Sulfa (Sulfonamide Allergy Severe Anaphylaxis Verified 12/03/23 08:40 Antibiotics) codeine [CODEINE] Allergy Intermediate GI UPSET Verified 12/03/23 08:40 erythromycin base AdvReac Severe gi upset Verified 12/03/23 08:40 Active Medications: Current Medications Acetaminophen (Acetaminophen 325 Mg Tablet) 650 mg PO Q6H PRN PRN Reason: Pain, Mild (Pain Scale 1-3) Albuterol Sulfate (Albuterol Sulfate 90 Mcg 8 Gm Inhaler) 1 puff INHALE Q4H [facility] Last Admin: 12/04/23 11:18 Dose: 1 puff Calcium Carbonate/Cholecalciferol (Calcium + Vitamin D 250 Mg Tablet) 250 mg PO DAILY [facility] Lactated Ringer's (Lr) 1,000 mls @ 100 mls/hr IVCONT .Q10H [facility] Ondansetron HCl (Ondansetron Hcl 4 Mg/2 Ml Vial) 4 mg IVPUSH Q8H PRN PRN Reason: Nausea and Vomiting Ondansetron HCl (Ondansetron Hcl 4 Mg/2 Ml Vial) 4 mg IVPUSH ONCE PRN PRN Reason: Nausea and Vomiting Pantoprazole Sodium (Pantoprazole Sodium 40 Mg/10 Ml Vial) 40 mg IVPUSH BID@0630,1630 [facility] Last Admin: 12/04/23 05:42 Dose: 40 mg Paroxetine HCl (Paroxetine Hcl 10 Mg Tablet) 10 mg PO DAILY [facility] Last Admin: 12/03/23 14:35 Dose: 10 mg Senna (Sennosides 8.6 Mg Tablet) 17.2 mg PO BEDTIME PRN PRN Reason: Constipation Sodium Chloride (0.9 % Sodium Chloride Flush 3 Ml Syringe) 3 ml IVFLUSH QSHIFT [facility] Last Admin: 12/04/23 12:15 Dose: Not Given Vitamin D (Cholecalciferol (Vitamin D3) 25 Mcg Tablet) 25 mcg PO DAILY [facility] Home Medications Medication Instructions Recorded Confirmed Last Taken Type cranberry 400 mg capsule 400 mg PO DAILY 11/22/20 12/03/23 Unknown History docusate sodium 100 mg capsule 100 mg PO DAILY 11/22/20 12/03/23 Unknown History (Colace) estradiol 0.01% (0.1 mg/gram) 1 g vaginal 2XW 11/30/21 12/03/23 Unknown History vaginal cream omeprazole 20 mg capsule,delayed 20 mg PO DAILY PRN Acid Reflux 06/16/22 12/03/23 Unknown History release zoledronic acid 5 mg/100 mL in 1 ea IV Q365D 06/16/22 12/03/23 5 Months Ago History mannitol 5 %-water intravenous ~07/03/23 piggybck (Reclast) albuterol sulfate 90 mcg/actuation 90 mcg inhalation Q4H 12/05/22 12/03/23 Unknown History aerosol inhaler paroxetine HCl 10 mg tablet 10 mg PO QAM 12/03/23 12/03/23 Unknown History Physical Exam 2 Vital Signs: Vital Signs: Last Vital Signs Temp 97 F 12/04/23 14:09 Pulse 74 12/04/23 14:09 Resp 16 12/04/23 14:09 BP 131/52 L 12/04/23 14:09 Pulse Ox 97 12/04/23 14:09 O2 Del Method Room Air 12/04/23 14:09 BMI result Body Mass Index 19.2 Const: General: no acute distress, alert and awake O rientation/consciousness: patient oriented x3 HEENT: Head: Yes normal to inspection Ears: hearing grossly normal bilaterally General nose exam: Normal external nose present Face and sinus: Yes normal facial exam Eyes: General: appearance normal, both eyes and all related structures Neck: Neck: Yes normal visual inspection Chest: Chest palpation & inspection: normal inspection of the chest Resp: Effort & Inspection: normal respiratory effort and able to speak in complete sentences Cardio: Rate: regular rate Rhythm: regular rhythm GI: Inspection: No distended and Yes scar Palpation (GI): Soft to palpation, Tenderness to palpation present (GI) (mild) in the LLQ and in the RLQ; with no rebound tenderness, no guarding and not rigid Percussion: Yes normal to percussion Abdomen image: 1. Appendectomy Skin: General skin exam: no rashes or lesions noted and no jaundice Neuro: General: patient oriented x3 and moves all extremities Results Labs 12/04/23 05:46 12/04/23 05:46 Labs: Abnormal lab results 12/04/23 Range/Units 05:46 Hgb 9.3 L (12.0-16.0) g/dl Hct 29.9 L (37.0-47.0) % MCV 69.5 L (80.0-98.0) fL MCH 21.6 L (27.0-33.0) pg RDW 17.4 H (11.0-16.0) % BUN 6 L (9-16) mg/dL Calcium 8.1 L (8.4-10.2) mg/dL Short CBC 12/04/23 Range/Units 05:46 WBC 6.9 (4.8-10.8) X10*3/uL Hgb 9.3 L (12.0-16.0) g/dl Hct 29.9 L (37.0-47.0) % Plt Count 325 (160-400) X10*3/uL BMP 12/04/23 05:46 Sodium 139 Potassium 3.5 Chloride 105 Carbon Dioxide 25 BUN 6 L Creatinine 0.62 Calcium 8.1 L Urine 12/03/23 Range/Units 10:35 Urine Color Yellow Urine Appearance Clear Urine pH 6.0 (5.0-9.0) Ur Specific [place] <= 1.005 (1.005-1.025) Urine Protein Negative (Neg-Trace) mg/dL Urine Glucose (UA) Negative (Negative) mg/dL All other labs normal. Imaging Abdomen CT scan report/results: report reviewed and image reviewed Assessment and Plan (1) Diarrhea: Status: Acute (2) GI (gastrointestinal bleed): Status: Acute (3) Vasovagal near syncope: Status: Acute (4) Mass of colon: Status: Acute Plan 78 year old female with PMH significant for pulmonary fibrosis who presented to the ED with diarrhea, abdominal pain and lightheadedness found to be anemic with positive heme occult stool. Subsequent EGD/colonoscopy revealed 4x5 cm ulcerated mass in the right colon. Due to her symptoms, it is recommended to proceed with hand assisted laparoscopic right colon resection. Risks, benefits, alternatives of laparoscopic possible open appendectomy were reviewed with the patient and included but not limited to bleeding, infection, numbness, pain, scarring, bowel or bladder injury or leak and the patient wishes to proceed. Will add onto the OR schedule for tomorrow. Patient and son comfortable with plan. CEA pending. Case discussed with Dr. Escobar. Procedures Date of Service Date of Service: 12/04/23
[2023-12-04] MEDS: Cholecalciferol (Vitamin D3) 25 MCG TABLET PO (14:42)
[2023-12-04] MEDS: Calcium + Vitamin D 250 MG TABLET PO (14:42)
[2023-12-04] MEDS: PARoxetine HCL 10 MG TABLET PO (14:42)
[2023-12-04] MEDS: Lactated Ringers 1,000 ML 100 ML IVCONT (14:45)
[2023-12-04] MEDS: neoMYCIN Sulfate 500 MG TABLET 1000 MG PO ×2 (17:24→21:14)
--- NOTE | 2023-12-04 23:39 | OP_ITS ---
DATE OF SERVICE: 12/04/2023 SURGEON: Zach Reza MD INDICATIONS: Iron-deficiency anemia and Hemoccult-positive stools. PREOPERATIVE DIAGNOSIS: POSTOPERATIVE DIAGNOSIS: PROCEDURE PERFORMED: Upper endoscopy with biopsy, colonoscopy to the terminal ileum with biopsy, and Meredith ink injection. ESTIMATED BLOOD LOSS: COMPLICATIONS: ANESTHESIA: Monitored anesthesia care. ASSISTANTS: SPECIMENS: DESCRIPTION OF PROCEDURE: A history and physical were performed. The risks and benefits of the procedure were explained to the patient. Informed consent was obtained. The patient was placed in the left lateral decubitus position. The Olympus video gastroscope was introduced into the esophagus, stomach, and duodenum. Examination was performed. The scope was removed. She was repositioned for colonoscopy. A digital rectal exam was performed and was found to be normal. The Olympus pediatric video colonoscope was introduced into the rectum and advanced to the cecum. The cecum was identified by transillumination, palpation, and identification of ileocecal valve. Examination was performed and the scope was removed. She tolerated both procedures well, returned to recovery area in stable condition. FINDINGS: Upper endoscopy: 1. Esophagus: The esophagus was normal. There was a small hiatal hernia. 2. Stomach: The stomach showed no evidence of masses or ulcers. No polyps were identified. 3. Duodenum: The bulb and 2nd portion were normal. Biopsies were obtained from the 2nd portion. 4. Colonoscopy: The terminal ileum was briefly examined and appeared normal. In the right colon was a 5 x 4 cm ulcerated lesion located at about 65 cm from the anal verge. This appeared consistent with a carcinoma. Biopsies were obtained from the mucosa. The lesion had a hard feel on biopsy and was friable. Edges were rolled slightly. 5. The location of the lesion was marked with 3 injections of 1 cc of Meredith ink. No other colonic lesions were identified. The quality of the prep was good. Retroflexed examination did show some internal hemorrhoids. IMPRESSION: 1. Hiatal hernia. 2. Right colon mass. RECOMMENDATION: 1. Follow up the biopsy results. 2. General surgery consultation. 3. Advance diet. MD JAMAR Moreno/SAMANL / [phone]
[2023-12-05] VITALS (19 sets, daily range): BP systolic 97–141; BP diastolic 45–75; PULSE 72–104; RESP 10–20; TEMP 36.1–37.7; O2SAT 93–99
[2023-12-05] MEDS: 0.9 % Sodium Chloride Flush 3 ML SYRINGE IVFLUSH (00:24)
[2023-12-05] MEDS: Lactated Ringers 1,000 ML 100 ML IVCONT ×2 (00:24→09:50)
[2023-12-05] MEDS: Pantoprazole Sodium 40 MG/10 ML VIAL IVPUSH (05:59)
[2023-12-05 06:51] LABS: Hematocrit 27.3 % (37.0-47.0); Hemoglobin 8.6 g/dl (12.0-16.0); Mean Corpuscular HGB Conc 31.5 g/dl (31.0-35.0); Mean Corpuscular Hemoglobin 21.8 pg (27.0-33.0); Mean Corpuscular Volume 69.1 fL (80.0-98.0); Mean Platelet Volume 10.8 fL (9.4-12.3); Platelet Count 297 X10*3/uL (160-400); Red Blood Count 3.95 X10*6/uL (4.20-5.50); Red Cell Distribution Width 17.3 % (11.0-16.0); White Blood Count 13.2 X10*3/uL (4.8-10.8)
[2023-12-05 07:12] LABS: Anion Gap 12 (12-20); Blood Urea Nitrogen 7 mg/dL (9-16); Calcium 8.3 mg/dL (8.4-10.2); Carbon Dioxide 25 mmol/L (22-29); Chloride 102 mmol/L (96-108); Creatinine Clr Calc Pharmacy 45.2; Estimated Glomerular Filt Rate > 60; Glucose Fasting 90 mg/dL (60-99); Potassium 4.1 mmol/L (3.3-5.1); Sodium 135 mmol/L (135-145)
[2023-12-05 07:33] LABS: Carcinoembryonic Antigen < 1.73 ng/mL
[2023-12-05] MEDS: Albuterol Sulfate 90 MCG 8 GM INHALER 1 PUFF INHALE (08:04)
--- NOTE | 2023-12-05 09:21 | HO.POSTANES ---
Post Anesthesia Evaluation Post Anesthesia Evaluation Date of Service: 12/05/23 Vital Signs: Vital Signs Temp Pulse Resp BP Pulse Ox O2 Del Method 12/05/23 08:06 78 18 12/05/23 07:39 98.3 F 77 18 124/65 96 Room Air 12/05/23 03:23 96.9 F 77 20 116/59 L 94 Room Air 12/05/23 00:00 97.0 F 80 20 121/62 93 Room Air Anesthesia: Monitored Mental Status: Awake Pain Control: Satisfactory Nausea/Vomiting: None Hydration: Adequate Anesthesia-Related Issues: No Anes. Related Issues
--- NOTE | 2023-12-05 10:18 | MHC.CM.PN ---
Per ROUNDS discussion, Patient is having surgery today and is not yet medically cleared for dc. Home is the goal and CM will continue to follow.
--- NOTE | 2023-12-05 10:29 | PM.PNGS ---
Subjective Subjective Date of Service: 12/05/23 Interval history: Patient feels well, ready for surgery today. Had some cramping last evening, better today. Discussed surgery with patient and sons again today and answered all questions to their apparent satisfaction. Physical Exam Vital Signs: Vital Signs: Last Vital Signs Temp 98.3 F 12/05/23 07:39 Pulse 78 12/05/23 08:06 Resp 18 12/05/23 08:06 BP 124/65 12/05/23 07:39 Pulse Ox 96 12/05/23 07:39 O2 Del Method Room Air 12/05/23 07:39 BMI result Body Mass Index 19.2 Const: General: comfortable and no acute distress Nutritional Appearance: well nourished Orientation/consciousness: patient oriented x3 Limitations: no limitations Resp: Effort & Inspection: normal respiratory effort, no audible wheezes, no cough and no respiratory distress Auscultation: clear to auscultation bilaterally GI: Inspection: Yes normal to inspection Palpation (GI): Soft to palpation, nontender, no guarding and not rigid Neuro: General: patient oriented x3 Extrem: General: Yes full ROM Objective Data Active Medications Acetaminophen (Acetaminophen 325 Mg Tablet) 650 mg PO Q6H PRN PRN Reason: Pain, Mild (Pain Scale 1-3) Albuterol Sulfate (Albuterol Sulfate 90 Mcg 8 Gm Inhaler) 1 puff INHALE Q4H [facility] Last Admin: 12/05/23 08:04 Dose: 1 puff Documented By: ASTER Calcium Carbonate/Cholecalciferol (Calcium + Vitamin D 250 Mg Tablet) 250 mg PO DAILY [facility] Last Admin: 12/05/23 09:02 Dose: Not Given Documented By: NANCY Non-Admin Reason: NPO Lactated Ringer's (Lr) 1,000 mls @ 100 mls/hr IVCONT .Q10H [facility] Last Admin: 12/05/23 09:50 Dose: 100 mls/hr Documented By: NANCY Ondansetron HCl (Ondansetron Hcl 4 Mg/2 Ml Vial) 4 mg IVPUSH Q8H PRN PRN Reason: Nausea and Vomiting Ondansetron HCl (Ondansetron Hcl 4 Mg/2 Ml Vial) 4 mg IVPUSH ONCE PRN PRN Reason: Nausea and Vomiting Pantoprazole Sodium (Pantoprazole Sodium 40 Mg/10 Ml Vial) 40 mg IVPUSH BID@2472,7596 [facility] Last Admin: 12/05/23 05:59 Dose: 40 mg Documented By: MATT Paroxetine HCl (Paroxetine Hcl 10 Mg Tablet) 10 mg PO DAILY [facility] Last Admin: 12/05/23 09:02 Dose: Not Given Documented By: NANCY Non-Admin Reason: NPO Senna (Sennosides 8.6 Mg Tablet) 17.2 mg PO BEDTIME PRN PRN Reason: Constipation Sodium Chloride (0.9 % Sodium Chloride Flush 3 Ml Syringe) 3 ml IVFLUSH QSHIFT [facility] Last Admin: 12/05/23 07:50 Dose: Not Given Documented By: NANCY Non-Admin Reason: IV Running Vitamin D (Cholecalciferol (Vitamin D3) 25 Mcg Tablet) 25 mcg PO DAILY [facility] Last Admin: 12/05/23 09:02 Dose: Not Given Documented By: NANCY Non-Admin Reason: NPO Labs 12/05/23 06:09 12/05/23 06:09 Labs: Laboratory Results - last 24 hr 12/03/23 12/05/23 12/05/23 18:24 06:09 08:19 MCV 69.1 L MCH 21.8 L MCHC 31.5 RDW 17.3 H Plt Count 297 MPV 10.8 Absolute Nucleated RBC 0.000 Nucleated RBC % (auto) 0.0 Anion Gap 12 Estim Creat Clear Calc 45.2 Estimated GFR > 60 Fasting Glucose 90 Calcium 8.3 L Carcinoembryonic Ag < 1.73 Stl C. cayetanensis PCR Cancelled Stool Rotavirus A PCR Cancelled Stl Adenov F 40/41 PCR Cancelled Stool Astrovirus (PCR) Cancelled Stool Campylobacter PCR Cancelled Stool Cryptosporidium PCR Cancelled Stl Sh Tox Pr E STEC PCR Cancelled Stool E coli O157 PCR Cancelled Stl Enterotoxigenic E PCR Cancelled Stool EPEC (PCR) Cancelled Stool EAEC (PCR) Cancelled Stl E. histolytica PCR Cancelled Stool Giardia Lamblia PCR Cancelled Stl P. shigelloides PCR Cancelled Stool Salmonella PCR Cancelled Stool Sapovirus (PCR) Cancelled Stl Shigella/EIEC PCR Cancelled St Y.enterocolitica PCR Cancelled Stool Vibrio (PCR) Cancelled Stl Vibrio cholerae PCR Cancelled Stl Norovirus GI/GII PCR Cancelled Blood Type A Negative Antibody Screen NEGATIVE Procedures Date of Service Date of Service: 12/05/23 Progress Note: A&P Assessment and plan (1) Mass of colon: Status: Acute Plan 78-year-old female presenting with a right colon mass highly suggestive of malignancy. CEA level is normal. Reviewed the procedure, risks, and alternative once again with the patient and her sons. Expressed understanding and consents to the hand assisted laparoscopic right hemicolectomy. Time Spent With Patient Time: Total time managing care of this patient today ____ minutes. Quality Stroke Does the patient have a stroke diagnosis?: No VTE Prior VTE?: No VTE Risk Level:: Medical - moderate - high VTE Device Contraindication: N/A - Device Ordered VTE Drug Contraindication: Treatment Not Indicated
--- NOTE | 2023-12-05 10:50 | HO.PM.IMPN ---
Subjective Subjective Date of Service: 12/05/23 Interval History: Seen and evaluated this morning laying comfortable in bed Denies any fever or chills No rectal bleeding plan for surgery today Review of Systems Review of Systems: Yes all other systems are reviewed and are negative Physical Exam Vital Signs: Vital Signs: Last Vital Signs Temp 98.3 F 12/05/23 07:39 Pulse 78 12/05/23 08:06 Resp 18 12/05/23 08:06 BP 124/65 12/05/23 07:39 Pulse Ox 96 12/05/23 07:39 O2 Del Method Room Air 12/05/23 07:39 BMI result Body Mass Index 19.2 Const: Other: Constitutional : Awake, interactive, not in distress Neck : Normal inspection, Supple Cardiovascular : RRR, no JVP, no lower extremity edema Respiratory : good bilateral air entry, no crackles, wheezes or rhonchi Gastrointestinal: soft, lax, Normal bowel sounds, Non tender Skin : Warm, Dry Neurological : Alert & oriented x3, No focal deficit Objective Data Active Medications Acetaminophen (Acetaminophen 325 Mg Tablet) 650 mg PO Q6H PRN PRN Reason: Pain, Mild (Pain Scale 1-3) Albuterol Sulfate (Albuterol Sulfate 90 Mcg 8 Gm Inhaler) 1 puff INHALE Q4H [facility] Last Admin: 12/05/23 08:04 Dose: 1 puff Documented By: ASTER Calcium Carbonate/Cholecalciferol (Calcium + Vitamin D 250 Mg Tablet) 250 mg PO DAILY [facility] Last Admin: 12/05/23 09:02 Dose: Not Given Documented By: NANCY Non-Admin Reason: NPO Lactated Ringer's (Lr) 1,000 mls @ 100 mls/hr IVCONT .Q10H [facility] Last Admin: 12/05/23 09:50 Dose: 100 mls/hr Documented By: NANCY Ondansetron HCl (Ondansetron Hcl 4 Mg/2 Ml Vial) 4 mg IVPUSH Q8H PRN PRN Reason: Nausea and Vomiting Ondansetron HCl (Ondansetron Hcl 4 Mg/2 Ml Vial) 4 mg IVPUSH ONCE PRN PRN Reason: Nausea and Vomiting Pantoprazole Sodium (Pantoprazole Sodium 40 Mg/10 Ml Vial) 40 mg IVPUSH BID@0630,1630 [facility] Last Admin: 12/05/23 05:59 Dose: 40 mg Documented By: MATT Paroxetine HCl (Paroxetine Hcl 10 Mg Tablet) 10 mg PO DAILY [facility] Last Admin: 12/05/23 09:02 Dose: Not Given Documented By: NANCY Non-Admin Reason: NPO Senna (Sennosides 8.6 Mg Tablet) 17.2 mg PO BEDTIME PRN PRN Reason: Constipation Sodium Chloride (0.9 % Sodium Chloride Flush 3 Ml Syringe) 3 ml IVFLUSH QSHIFT [facility] Last Admin: 12/05/23 07:50 Dose: Not Given Documented By: NANCY Non-Admin Reason: IV Running Vitamin D (Cholecalciferol (Vitamin D3) 25 Mcg Tablet) 25 mcg PO DAILY [facility] Last Admin: 12/05/23 09:02 Dose: Not Given Documented By: NANCY Non-Reyes Reason: NPO Labs 12/05/23 06:09 12/05/23 06:09 Labs: Laboratory Results - last 24 hr 12/03/23 12/05/23 12/05/23 18:24 06:09 08:19 MCV 69.1 L MCH 21.8 L MCHC 31.5 RDW 17.3 H Plt Count 297 MPV 10.8 Absolute Nucleated RBC 0.000 Nucleated RBC % (auto) 0.0 Anion Gap 12 Estim Creat Clear Calc 45.2 Estimated GFR > 60 Fasting Glucose 90 Calcium 8.3 L Carcinoembryonic Ag < 1.73 Stl C. cayetanensis PCR Cancelled Stool Rotavirus A PCR Cancelled Stl Adenov F 40/41 PCR Cancelled Stool Astrovirus (PCR) Cancelled Stool Campylobacter PCR Cancelled Stool Cryptosporidium PCR Cancelled Stl Sh Tox Pr E STEC PCR Cancelled Stool E coli O157 PCR Cancelled Stl Enterotoxigenic E PCR Cancelled Stool EPEC (PCR) Cancelled Stool EAEC (PCR) Cancelled Stl E. histolytica PCR Cancelled Stool Giardia Lamblia PCR Cancelled Stl P. shigelloides PCR Cancelled Stool Salmonella PCR Cancelled Stool Sapovirus (PCR) Cancelled Stl Shigella/EIEC PCR Cancelled St Y.enterocolitica PCR Cancelled Stool Vibrio (PCR) Cancelled Stl Vibrio cholerae PCR Cancelled Stl Norovirus GI/GII PCR Cancelled Blood Type A Negative Antibody Screen NEGATIVE Assessment and Plan (1) Mass of colon: Status: Acute (2) GI (gastrointestinal bleed): Status: Acute Plan 78F PMH pulmonary fibrosis, glaucoma, vit d deficiency, osteoporosis, chronic constipation, presented with diarrhea and abd pain, found to have iron deficiency anemia Right colon mass found on Colonoscopy CEA negative evaluated by surgery, for surgical removal today chronic iron deficiency anemia due to lower gi bleed hgb stable EGd\Colonoscopy showed colonic mass continue 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 Quality Stroke Does the patient have a stroke diagnosis?: No VTE Prior VTE?: No VTE Risk Level:: Medical - moderate - high VTE Device Contraindication: N/A - Device Ordered VTE Drug Contraindication: Treatment Not Indicated
--- NOTE | 2023-12-05 10:53 | PC.NURSE ---
Patient is alert and oriented x4. KWAN to command 5/5 sensation intact, +pp bilat no edema noted compression boots in place. OOB independent with steady gait. c/o sore neck per pt baseline hot packs applied for comfort with good effect refused Tylenol. LSCTA denies shortness of breath or chest pain, NSR on tele. BS+X4 abdomen soft non-tender denies nausea/vomiting. NPO since midnight for surgery this am. IV fluids infusing per order. Type and screen obtained this am. Family at bedside. Off unit for surgery at 1045. Will continue to monitor and report changes
--- NOTE | 2023-12-05 11:17 | MHC.SLORD ---
Speech Language Pathology Order Status: Patient NPO for procedure. Previous recommendations for Chopped/Advanced (NDD3) and Thin Liquids if medically cleared. 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
--- NOTE | 2023-12-05 12:52 | P.CONAN_ITS ---
HPI - Anesthesia Eval Consult details Narrative: for hand assist right colectomy PMFSH Active Problems Active Problems: All Active Problems (Updated 12/04/23 @ 15:22 by Makeda Taylor PA-C) Mass of colon (Acute) Vasovagal near syncope (Acute) Diarrhea (Acute) GI (gastrointestinal bleed) (Acute) Right inguinal hernia (Acute) Cervical spondylosis (Acute) Chronic pain of both shoulders (Acute) Muscle spasms of neck (Acute) Occipital neuralgia of right side (Acute) Cervicalgia (Acute) Stiffness of right hand joint (Acute) Distal radius fracture, right (Acute) Pulmonary fibrosis (Acute) Vitamin D deficiency (Acute) Hypercalciuria (Acute) Osteoporosis (Acute) Past Medical History Medical History (Updated 12/04/23 @ 15:22 by Makeda Taylor PA-C) Pulmonary fibrosis Glaucoma Vitamin D deficiency Hypercalciuria Osteoporosis Family History Family History Father Lung cancer Mother CVD (cardiovascular disease) Family history of problems with anesthesia: No Surgical History Surgical History (Updated 12/04/23 @ 15:23 by Makeda Taylor PA-C) Hx of appendectomy History of endoscopy History of surgery on wrist Hx of neck surgery Hx of adenoidectomy Hx of tonsillectomy Hx of colonoscopy Hx of hammer toe correction History of carpal tunnel surgery History of Problems with Anesthesia: Yes (PONV) Social History Social History Household Members: Children Housing: House Alcohol intake: never Patient Tobacco Use Status: Former Tobacco user Years Smoked: 5 service: No Meds Allergies Allergy/AdvReac Type Severity Reaction Status Date / Time Sulfa (Sulfonamide Allergy Severe Anaphylaxis Verified 12/05/23 10:56 Antibiotics) codeine [CODEINE] Allergy Intermediate GI UPSET Verified 12/05/23 10:56 erythromycin base AdvReac Severe gi upset Verified 12/05/23 10:56 Active Medications: Current Medications Acetaminophen (Acetaminophen 325 Mg Tablet) 650 mg PO Q6H PRN PRN Reason: Pain, Mild (Pain Scale 1-3) Albuterol Sulfate (Albuterol Sulfate 90 Mcg 8 Gm Inhaler) 1 puff INHALE RQ4H PRN PRN Reason: Shortness of Breath/Wheezing Calcium Carbonate/Cholecalciferol (Calcium + Vitamin D 250 Mg Tablet) 250 mg PO DAILY [facility] Last Admin: 12/05/23 09:02 Dose: Not Given Lactated Ringer's (Lr) 1,000 mls @ 100 mls/hr IVCONT .Q10H [facility] Last Admin: 12/05/23 09:50 Dose: 100 mls/hr Ondansetron HCl (Ondansetron Hcl 4 Mg/2 Ml Vial) 4 mg IVPUSH Q8H PRN PRN Reason: Nausea and Vomiting Ondansetron HCl (Ondansetron Hcl 4 Mg/2 Ml Vial) 4 mg IVPUSH ONCE PRN PRN Reason: Nausea and Vomiting Pantoprazole Sodium (Pantoprazole Sodium 40 Mg/10 Ml Vial) 40 mg IVPUSH BID@0630,1630 [facility] Last Admin: 12/05/23 05:59 Dose: 40 mg Paroxetine HCl (Paroxetine Hcl 10 Mg Tablet) 10 mg PO DAILY [facility] Last Admin: 12/05/23 09:02 Dose: Not Given Senna (Sennosides 8.6 Mg Tablet) 17.2 mg PO BEDTIME PRN PRN Reason: Constipation Sodium Chloride (0.9 % Sodium Chloride Flush 3 Ml Syringe) 3 ml IVFLUSH QSHIFT [facility] Last Admin: 12/05/23 07:50 Dose: Not Given Vitamin D (Cholecalciferol (Vitamin D3) 25 Mcg Tablet) 25 mcg PO DAILY [facility] Last Admin: 12/05/23 09:02 Dose: Not Given Home Medications Medication Instructions Recorded Confirmed Last Taken Type cranberry 400 mg capsule 400 mg PO DAILY 11/22/20 12/03/23 Unknown History docusate sodium 100 mg capsule 100 mg PO DAILY 11/22/20 12/03/23 Unknown History (Colace) estradiol 0.01% (0.1 mg/gram) 1 g vaginal 2XW 11/30/21 12/03/23 Unknown History vaginal cream omeprazole 20 mg capsule,delayed 20 mg PO DAILY PRN Acid Reflux 06/16/22 12/03/23 Unknown History release zoledronic acid 5 mg/100 mL in 1 ea IV Q365D 06/16/22 12/03/23 5 Months Ago History mannitol 5 %-water intravenous ~07/03/23 piggybck (Reclast) albuterol sulfate 90 mcg/actuation 90 mcg inhalation Q4H 12/05/22 12/03/23 Unknown History aerosol inhaler paroxetine HCl 10 mg tablet 10 mg PO QAM 12/03/23 12/03/23 Unknown History Exam Height,Weight and Vital Signs: Height 4 ft 10 in Weight 41.7 kg Last Vital Signs Temp 99.9 F 12/05/23 10:58 Pulse 80 12/05/23 10:58 Resp 16 12/05/23 10:58 BP 117/63 12/05/23 10:58 Pulse Ox 93 12/05/23 10:58 O2 Del Method Room Air 12/05/23 10:58 Pertinent Lab Results Pertinent Lab Results: Laboratory Tests 12/03/23 12/03/23 12/03/23 09:37 10:35 18:24 WBC 7.8 RBC 4.41 Hgb 9.5 L Hct 31.0 L MCV 70.3 L MCH 21.5 L MCHC 30.6 L RDW 16.9 H Plt Count 355 MPV 10.3 Immature Gran % (Auto) 0.3 Neut % (Auto) 75.9 H Lymph % (Auto) 11.8 L [place] % (Auto) 10.6 Eos % (Auto) 0.8 Baso % (Auto) 0.6 Lymph # (Auto) 0.9 L [place] # (Auto) 0.8 Eos # (Auto) 0.1 Baso # (Auto) 0.1 Abs Immat Gran (auto) 0.02 Absolute Neuts (auto) 5.9 Absolute Nucleated RBC 0.000 Nucleated RBC % (auto) 0.0 Sodium 135 Potassium 4.0 Chloride 103 Carbon Dioxide 25 Anion Gap 11 L BUN 10 Creatinine 0.65 Estim Creat Clear Calc 44.5 Estimated GFR > 60 Random Glucose 87 Fasting Glucose Calcium 8.3 L D Iron 15 L TIBC 299 % Saturation 5 L Unsat Iron Binding 284 Ferritin 6 L Total Bilirubin 0.3 AST 20 ALT 12 Alkaline Phosphatase 43 Total Protein 6.3 L Albumin 3.4 L Lipase 186 H Carcinoembryonic Ag Urine Color Yellow Urine Appearance Clear Urine pH 6.0 Ur Specific [place] <= 1.005 Urine Protein Negative Urine Glucose (UA) Negative Urine Ketones Negative Urine Blood Negative Urine Nitrite Negative Ur Leukocyte Esterase Negative Stl C. cayetanensis PCR Cancelled Stool Rotavirus A PCR Cancelled Stl Adenov F 40/41 PCR Cancelled Stool Astrovirus (PCR) Cancelled Stool Campylobacter PCR Cancelled Stool Cryptosporidium PCR Cancelled Stl Sh Tox Pr E STEC PCR Cancelled Stool E coli O157 PCR Cancelled Stl Enterotoxigenic E PCR Cancelled Stool EPEC (PCR) Cancelled Stool EAEC (PCR) Cancelled Stl E. histolytica PCR Cancelled Stool Giardia Lamblia PCR Cancelled Stl P. shigelloides PCR Cancelled Stool Salmonella PCR Cancelled Stool Sapovirus (PCR) Cancelled Stl Shigella/EIEC PCR Cancelled St Y.enterocolitica PCR Cancelled Stool Vibrio (PCR) Cancelled Stl Vibrio cholerae PCR Cancelled Stl Norovirus GI/GII PCR Cancelled C. difficile Tox B Gene NEGATIVE Blood Type Antibody Screen 12/04/23 12/05/23 12/05/23 05:46 06:09 08:19 WBC 6.9 13.2 H RBC 4.30 3.95 L Hgb 9.3 L 8.6 L Hct 29.9 L 27.3 L MCV 69.5 L 69.1 L MCH 21.6 L 21.8 L MCHC 31.1 31.5 RDW 17.4 H 17.3 H Plt Count 325 297 MPV 10.7 10.8 Immature Gran % (Auto) 0.3 Neut % (Auto) 57.9 Lymph % (Auto) 28.8 Beckham % (Auto) 10.4 Eos % (Auto) 2.2 Baso % (Auto) 0.4 Lymph # (Auto) 2.0 [place] # (Auto) 0.7 Eos # (Auto) 0.2 Baso # (Auto) 0.0 Abs Immat Gran (auto) 0.02 Absolute Neuts (auto) 4.0 Absolute Nucleated RBC 0.000 0.000 Nucleated RBC % (auto) 0.0 0.0 Sodium 139 135 Potassium 3.5 4.1 Chloride 105 102 Carbon Dioxide 25 25 Anion Gap 13 12 BUN 6 L 7 L Creatinine 0.62 0.64 Estim Creat Clear Calc 46.7 45.2 Estimated GFR > 60 > 60 Random Glucose 74 Fasting Glucose 90 Calcium 8.1 L 8.3 L Iron TIBC % Saturation Unsat Iron Binding Ferritin Total Bilirubin AST ALT Alkaline Phosphatase Total Protein Albumin Lipase Carcinoembryonic Ag < 1.73 Urine Color Urine Appearance Urine pH Ur Specific [place] Urine Protein Urine Glucose (UA) Urine Ketones Urine Blood Urine Nitrite Ur Leukocyte Esterase Stl C. cayetanensis PCR Stool Rotavirus A PCR Stl Adenov F 40/41 PCR Stool Astrovirus (PCR) Stool Campylobacter PCR Stool Cryptosporidium PCR Stl Sh Tox Pr E STEC PCR Stool E coli O157 PCR Stl Enterotoxigenic E PCR Stool EPEC (PCR) Stool EAEC (PCR) Stl E. histolytica PCR Stool Giardia Lamblia PCR Stl P. shigelloides PCR Stool Salmonella PCR Stool Sapovirus (PCR) Stl Shigella/EIEC PCR St Y.enterocolitica PCR Stool Vibrio (PCR) Stl Vibrio cholerae PCR Stl Norovirus GI/GII PCR C. difficile Tox B Gene Blood Type A Negative Antibody Screen NEGATIVE Airway Mallampati Class: II TM Dist: <=3cm Neck ROM: Full Partial: Upper Heart: ok Lungs: ok Assessment and Plan Assessment Anesthesia Assessment: Anesthesia Plan Discussed and Chart Reviewed Final Anesthetic Review Family History of Problems with Anesthesia: No History of Problems with Anesthesia: Yes (PONV) NPO: Yes ASA Class: III Final Preanesthetic Review: No Changes in Pt Med Stat, Meds/Allgs Chart Reviewed, Consent Obtained/Reviewed and Anes Risks/Benef Reviewed Patient Risk: Intermediate Procedure Risk: Intermediate Anesthetic Plan Anesthetic Plan: GA and Agree w/ Assess. and Plan Disposition: Standard PACU
--- NOTE | 2023-12-05 15:11 | P.OP_ITS ---
Operative Note Operative Note Date of Service: 12/05/23 Narrative: Preoperative diagnosis: Right colon mass with bleeding/pain Postoperative diagnosis: Same Procedure: Hand assisted laparoscopic right colectomy Surgeon: Isreal Escobar MD Race Relations Adviser: Makeda Taylor PA-C, GENESIS Morales Anesthesia: General endotracheal Indications for procedure: 78-year-old female patient presenting with complaints of abdominal cramping and anemia found to have on colonoscopy a right colon mass measuring 4 x 5 cm, presumed malignancy. CEA level was normal. After discussion of the procedure and risks, hand assisted laparoscopic right colectomy is recommended given the symptomatic lesion. Patient has previously undergone bowel prep for colonoscopy yesterday. Operative findings: Palpable mass in the right colon with overlying in the ink measuring at least 4 cm in diameter. Mass appears intraluminal without evidence of invasion beyond the wall. Multiple enlarged lymph nodes were identified through the mesentery. Specimen: Right colon Estimated blood loss: 5 mL Complications: None Procedure details: Patient was brought to the OR placed in a supine position. After administering general anesthesia a Ferrell catheter was placed. The patient's abdomen was prepped with ChloraPrep and draped in a sterile fashion. Surgical time-out was called the consent confirmed. Patient received preoperative antibiotics and Venodyne boots were in place. Local anesthesia was infiltrated in the midline around the umbilicus. A 7 cm incision was then created with a scalpel and carried out through subcutaneous tissue through linea alba into the abdominal cavity. A hand port was then inserted. Abdomen was then insufflated to a pressure of 15 mmHg. A 5 mm trocar was placed in the lower abdomen in the midline a 2nd was placed in the upper midline and a 3rd in the right lower quadrant. The patient was rolled to the left and placed in Trendelenburg. Dissection was then begun along the peritoneal reflexion of the right colon. The colon was then further mobilized up to the hepatic flexure. This was done using LigaSure. Omentum was then taken down off of the transverse colon along the right side of transverse colon. This again was using the LigaSure. Dissection was continued down along the terminal ileum. When the right colon was completely mobilized the colon was brought up through the hand port. The ileocolic vessel was identified and dissected just below the duodenal. This was then doubly ligated using a 2-0 silk suture. In a similar fashion the right branch of the middle colic vessel was also identified and ligated using the silk tie. A BA stapler was then used to divide the terminal ileum proximally 10 cm proximal to the ileocecal valve. A 2nd each BA stapler was then used to divide the transverse colon on the right side. Remaining mesentery was then divided using LigaSure. Specimen was passed off the table and sent to pathology for further examination. A functional end-to-end anastomosis was then performed. The terminal ileum and transverse colon were then approximated 3-0 Surgilon sutures along the anti mesenteric border. A colotomy was then made at the anti mesenteric border at the staple line and a BA stapler fired between the 2 loops of bowel. The colotomy was then closed using a TA 60 stapler. The staple line was then imbricated using interrupted 3-0 Surgilon sutures. The crotch of the anastomosis was also closed with a 3-0 Surgilon suture. The mesentery was also reapproximated using interrupted 3-0 Surgilon sutures. Wounds were then irrigated with saline solution and suctioned dry. Gloves were changed. The abdomen was then insufflated once again and explored. No bleeding was identified. Bowel was found to lie in a good location in the right upper quadrant. CO2 was then evacuated and the ports removed. No bleeding was noted from the port sites. Fascia was closed in the midline incision using a running 0 PDS looped suture. Skin was closed in all incisions using a subcuticular 4-0 Polysorb suture. Steri-Strips, 4 x 4 gauze and Tegaderm were then applied. The patient tolerated the procedure well. Sponge, instrument, needle counts reported as correct. The patient was transferred to PACU in stable condition. Colon Resection Tumor location: Right colon Extent of lymphovascular resection Right colon (cecum and ascending colon): Ileocolic high ligation and right branch of the middle colic General Surg. - Synoptic Notes Colon Resection Tumor location: Right colon Extent of Lymphovascular Resection: Right colon (cecum and ascending colon): Ileocolic high ligation and right branch of the middle colic
[2023-12-05] MEDS: Dextrose 5 % and Lactated Ring 1,000 ML 100 ML IVCONT (17:48)
[2023-12-05] MEDS: ondansetron HCL 4 MG/2 ML VIAL IVPUSH (17:51)
--- NOTE | 2023-12-05 18:34 | PC.NURSE ---
Patient arrived back to unit very drowsy although easily arrousable alert and oriented x4. Denies pain, dressing x4 to abdomen with scant drainage noted. IV fluids started per order, c/o nausea zofran given with effect pt resting comfortably in bed. Compression boots in place. Ferrell with clear yellow urine place in OR. LSC arrived on 2L oxygen via [place] per report sats dipped into 80's on room air. VSS. Alarm for safety bed in lowest locked position call gonzales within reach.
[2023-12-05] MEDS: Acetaminophen 1,000 MG/100 ML PIGGYBACK 400 MG IV (21:08)
[2023-12-06] VITALS (8 sets, daily range): BP systolic 129–167; BP diastolic 61–73; PULSE 61–71; RESP 18–20; TEMP 36.3–36.7; O2SAT 96–100
[2023-12-06] MEDS: Acetaminophen 1,000 MG/100 ML PIGGYBACK 400 MG IV ×3 (03:31→17:25)
[2023-12-06] MEDS: Dextrose 5 % and Lactated Ring 1,000 ML 100 ML IVCONT (03:48)
[2023-12-06] MEDS: Pantoprazole Sodium 40 MG/10 ML VIAL IVPUSH ×2 (05:35→17:24)
[2023-12-06 07:01] LABS: Hematocrit 27.5 % (37.0-47.0); Hemoglobin 8.5 g/dl (12.0-16.0); Mean Corpuscular HGB Conc 30.9 g/dl (31.0-35.0); Mean Corpuscular Hemoglobin 21.4 pg (27.0-33.0); Mean Corpuscular Volume 69.1 fL (80.0-98.0); Mean Platelet Volume 10.6 fL (9.4-12.3); Platelet Count 258 X10*3/uL (160-400); Red Blood Count 3.98 X10*6/uL (4.20-5.50); Red Cell Distribution Width 17.5 % (11.0-16.0); White Blood Count 10.2 X10*3/uL (4.8-10.8)
[2023-12-06 07:06] LABS: Anion Gap 9 (12-20); Blood Urea Nitrogen 9 mg/dL (9-16); Calcium 8.1 mg/dL (8.4-10.2); Carbon Dioxide 26 mmol/L (22-29); Chloride 103 mmol/L (96-108); Creatinine Clr Calc Pharmacy 45.2; Estimated Glomerular Filt Rate > 60; Glucose Random 164 mg/dL (60-115); Potassium 3.5 mmol/L (3.3-5.1); Sodium 134 mmol/L (135-145)
--- NOTE | 2023-12-06 07:40 | P.PNGS_ITS ---
Subjective Subjective Date of Service: 12/06/23 <Makeda Taylor PA-C - Last Filed: 12/06/23 07:44> 12/06/23 <Isreal Escobar MD - Last Filed: 12/06/23 07:52> Interval history: Feels overall well, pain well controlled with IV tylenol. Has only had water. Passing some flatus. Has not been OOB yet. <Makeda Taylor PA-C - Last Filed: 12/06/23 07:44> Physical Exam 2 Vital Signs: Vital Signs: Last Vital Signs Temp 97.5 F 12/06/23 07:14 Pulse 65 12/06/23 07:14 Resp 20 12/06/23 07:14 BP 153/67 H 12/06/23 07:14 Pulse Ox 100 12/06/23 07:14 O2 Del Method Nasal Cannula 12/06/23 07:14 O2 Flow Rate 2 12/06/23 07:14 BMI result Body Mass Index 19.2 <Makeda Taylor PA-C - Last Filed: 12/06/23 07:44> Const: General: comfortable, no acute distress and alert <Makeda Taylor PA-C - Last Filed: 12/06/23 07:44> Orientation/consciousness: patient oriented x3 <Makeda Taylor PA-C - Last Filed: 12/06/23 07:44> Resp: Effort & Inspection: normal respiratory effort <Makeda Taylor PA-C - Last Filed: 12/06/23 07:44> GI: Other: trochar and midline incision is clean, dry and intact without discharge <Isreal Escobar MD - Last Filed: 12/06/23 07:52> Inspection: No distended and Yes incision (clean dressing) <Makeda Taylor PA-C - Last Filed: 12/06/23 07:44> Palpation (GI): Soft to palpation, Tenderness to palpation present (GI) (mild incisional), no guarding and not rigid <MAREK Aguila Last Filed: 12/06/23 07:44> Abdomen image: 1. 2. 3. 4. <Makeda Taylor PA-C - Last Filed: 12/06/23 07:44> Abdomen image: 1. 2. 3. 4. <Isreal Escobar MD - Last Filed: 12/06/23 07:52> Skin: General skin exam: no rashes or lesions noted <Makeda Taylor PA-C - Last Filed: 12/06/23 07:44> Neuro: General: patient oriented x3 and moves all extremities <Makeda Taylor PA-C - Last Filed: 12/06/23 07:44> Objective Data Active Medications Albuterol Sulfate (Albuterol Sulfate 90 Mcg 8 Gm Inhaler) 1 puff INHALE RQ4H PRN PRN Reason: Shortness of Breath/Wheezing Calcium Carbonate/Cholecalciferol (Calcium + Vitamin D 250 Mg Tablet) 250 mg PO DAILY COUNT INCLUDES [facility] Last Admin: 12/05/23 09:02 Dose: Not Given Documented By: NANCY Non-Admin Reason: NPO Hydromorphone HCl (Hydromorphone Hcl 0.5 Mg/0.5 Ml Syringe) 0.25 mg IVPUSH Q3H PRN; Protocol PRN Reason: Pain, Severe (Pain Scale 7-10) Acetaminophen (Ofirmev) 1,000 mg in 100 mls @ 400 mls/hr IV Q6H COUNT INCLUDES THE [facility] Stop: 12/06/23 15:14 Last Infusion: 12/06/23 03:50 Dose: Infused Documented By: NUBIA Dextrose/Lactated Ringer's (D5lr) 1,000 mls @ 100 mls/hr IVCONT .Q10H COUNT INCLUDES THE [facility] Last Admin: 12/06/23 03:48 Dose: 100 mls/hr Documented By: NUBIA Ondansetron HCl (Ondansetron Hcl 4 Mg/2 Ml Vial) 4 mg IVPUSH Q8H PRN PRN Reason: Nausea and Vomiting Last Admin: 12/05/23 17:51 Dose: 4 mg Documented By: NANCY Oxycodone HCl (Oxycodone Hcl Immed Release 5 Mg Tablet) 5 mg PO Q6H PRN PRN Reason: Pain, Moderate(Pain Scale 4-6) Pantoprazole Sodium (Pantoprazole Sodium 40 Mg/10 Ml Vial) 40 mg IVPUSH BID@0630,1630 [facility]CLUDES [facility] Last Admin: 12/06/23 05:35 Dose: 40 mg Documented By: NUBIA Paroxetine HCl (Paroxetine Hcl 10 Mg Tablet) 10 mg PO DAILY COUNT [facility]CLUDES [facility] Last Admin: 12/05/23 09:02 Dose: Not Given Documented By: NANCY Non-Admin Reason: NPO Senna (Sennosides 8.6 Mg Tablet) 17.2 mg PO BEDTIME PRN PRN Reason: Constipation Sodium Chloride (0.9 % Sodium Chloride Flush 3 Ml Syringe) 3 ml IVFLUSH QSHIFT COUNT INCLUDES THE [facility] Last Admin: 12/06/23 00:17 Dose: Not Given Documented By: NUBIA Non-Admin Reason: IV Running Vitamin D (Cholecalciferol (Vitamin D3) 25 Mcg Tablet) 25 mcg PO DAILY COUNT [facility]CLUDES [facility] Last Admin: 12/05/23 09:02 Dose: Not Given Documented By: NANCY Non-Admin Reason: NPO Zolpidem Tartrate (Zolpidem Tartrate 5 Mg Tablet) 5 mg PO BEDTIME PRN PRN Reason: Insomnia <Makeda Taylor PA-C - Last Filed: 12/06/23 07:44> Labs CBC & Chem 7: 12/06/23 06:11 12/06/23 06:11 <Makeda Taylor PA-C - Last Filed: 12/06/23 07:44> Labs: Laboratory Results - last 24 hr 12/03/23 12/05/23 12/06/23 18:24 08:19 06:11 MCV 69.1 L MCH 21.4 L MCHC 30.9 L RDW 17.5 H Plt Count 258 MPV 10.6 Absolute Nucleated RBC 0.000 Nucleated RBC % (auto) 0.0 Anion Gap 9 L Estim Creat Clear Calc 45.2 Estimated GFR > 60 Random Glucose 164 H Calcium 8.1 L Stl C. cayetanensis PCR Cancelled Stool Rotavirus A PCR Cancelled Stl Adenov F 40/41 PCR Cancelled Stool Astrovirus (PCR) Cancelled Stool Campylobacter PCR Cancelled Stool Cryptosporidium PCR Cancelled Stl Sh Tox Pr E STEC PCR Cancelled Stool E coli O157 PCR Cancelled Stl Enterotoxigenic E PCR Cancelled Stool EPEC (PCR) Cancelled Stool EAEC (PCR) Cancelled Stl E. histolytica PCR Cancelled Stool Giardia Lamblia PCR Cancelled Stl P. shigelloides PCR Cancelled Stool Salmonella PCR Cancelled Stool Sapovirus (PCR) Cancelled Stl Shigella/EIEC PCR Cancelled St Y.enterocolitica PCR Cancelled Stool Vibrio (PCR) Cancelled Stl Vibrio cholerae PCR Cancelled Stl Norovirus GI/GII PCR Cancelled Blood Type A Negative Antibody Screen NEGATIVE <Makeda Taylor PA-C - Last Filed: 12/06/23 07:44> Procedures Date of Service Date of Service: 12/06/23 <Makeda Taylor PA-C - Last Filed: 12/06/23 07:44> 12/06/23 <Isreal Escobar MD - Last Filed: 12/06/23 07:52> Progress Note: A&P Assessment and plan (1) Mass of colon: Status: Acute <MAREK Aguila Last Filed: 12/06/23 07:44> (2) S/P right colectomy: Status: Acute <Makeda Taylor PA-C - Last Filed: 12/06/23 07:44> Assessment and Plan: POD #1 s/p hand assisted laparoscopic right colectomy. Doing well post op with good pain control, some GI function. Abd benign with clean dressings and appropriate post op tendneress. Dc horowitz, OOB/ambulation today and IS use. If tolerating clear liquids this morning, can advance to solid diet. Patient comfortable with plan. Cont pain control. Await pathology. AM labs reviewed. <Makeda Taylro PA-C - Last Filed: 12/06/23 07:44> POD #1 s/p hand assisted laparoscopic right colectomy. Doing well post op with good pain control, some GI function. Abd benign with clean dressings and appropriate post op tendneress. Dc horowitz, OOB/ambulation today and IS use. If tolerating clear liquids this morning, can advance to solid diet. Patient comfortable with plan. Cont pain control. Await pathology. AM labs reviewed. Path from colonoscopy positive for adenocarcinoma. Patient informed of the path results. Labs reveal a stable H/H post op Agree with the above assessment and plan. Advance to a low fiber diet today. Decrease IV fluids. Encouraged deep breathing exercises and ambulation today. Await return of bowel function, path results. <Isreal Escobar MD - Last Filed: 12/06/23 07:52> Time Spent With Patient Time: Total time managing care of this patient today ____ minutes. <Makeda Taylor PA-C - Last Filed: 12/06/23 07:44> Quality Stroke Does the patient have a stroke diagnosis?: No <Makeda Taylor PA-C - Last Filed: 12/06/23 07:44> VTE Prior VTE?: No <Makeda Taylor PA-C - Last Filed: 12/06/23 07:44> VTE Risk Level:: Medical - moderate - high <Makeda Taylor PA-C - Last Filed: 12/06/23 07:44> VTE Device Contraindication: N/A - Device Ordered <Makeda Taylor PA-C - Last Filed: 12/06/23 07:44> VTE Drug Contraindication: Treatment Not Indicated <Makeda Taylor PA-C - Last Filed: 12/06/23 07:44>
[2023-12-06] MEDS: Sennosides 8.6 MG TABLET 17.2 MG PO (09:31)
[2023-12-06] MEDS: Calcium + Vitamin D 250 MG TABLET PO (09:31)
[2023-12-06] MEDS: oxyCODONE HCl Immed Release 5 MG TABLET PO (09:32)
[2023-12-06] MEDS: 0.9 % Sodium Chloride Flush 3 ML SYRINGE IVFLUSH ×3 (09:32→23:53)
[2023-12-06] MEDS: PARoxetine HCL 10 MG TABLET PO (09:32)
[2023-12-06] MEDS: Cholecalciferol (Vitamin D3) 25 MCG TABLET PO (09:32)
--- NOTE | 2023-12-06 12:22 | MHC.SLORD ---
Speech Language Pathology Order Status: Attempted to see patient X2, with patient sleeping through mid day meal. Patient was advanced by MD 12/05/23 to REGULAR diet, and per RN tolerating well. w/ this report, no changes recommended at this time. ORTHOTIC/PROSTHETIC CLINICIAN will follow.
--- NOTE | 2023-12-06 13:09 | PM.EVENT ---
Event Note Date of Service: 12/06/23 Event Note: Patient continues to do well; tolerating soft diet without nausea or vomiting No BM or Flatus yet I provided patient with the incentive spirometer and showed her how to use it. Recommend using q1 hour x 10 while awake. Ferrell catheter still inplace; order placed this morning for removal. I reconnected compression stockings and turned on the pump Encouraged OOB and ambulation today. Time Spent With Patient Time: Total time managing care of this patient today ____ minutes.
--- NOTE | 2023-12-06 13:11 | P.PNGI_ITS ---
Subjective Subjective Date of Service: 12/06/23 Interval History: feels ok Critical Care Time (minutes): 0 Physical Exam 2 Vital Signs: Vital Signs: Last Vital Signs Temp 97.4 F 12/06/23 11:31 Pulse 67 12/06/23 11:31 Resp 20 12/06/23 11:31 BP 129/61 12/06/23 11:31 Pulse Ox 97 12/06/23 11:31 O2 Del Method Room Air 12/06/23 11:31 O2 Flow Rate 2 12/06/23 07:14 BMI result Body Mass Index 19.2 GI: Other: abdomen is soft, dressing in place Objective Data Labs 12/06/23 06:11 12/06/23 06:11 Labs: Laboratory Results - last 24 hr 12/06/23 06:11 WBC 10.2 RBC 3.98 L Hgb 8.5 L Hct 27.5 L MCV 69.1 L MCH 21.4 L MCHC 30.9 L RDW 17.5 H Plt Count 258 MPV 10.6 Absolute Nucleated RBC 0.000 Nucleated RBC % (auto) 0.0 Sodium 134 L Potassium 3.5 Chloride 103 Carbon Dioxide 26 Anion Gap 9 L BUN 9 Creatinine 0.64 Estim Creat Clear Calc 45.2 Estimated GFR > 60 Random Glucose 164 H Calcium 8.1 L Procedures Date of Service Date of Service: 12/06/23 Progress Note: A&P Assessment and plan (1) Colon cancer: Status: Acute Assessment and Plan: discussed bx results with patient await pathology. Time Spent With Patient Time: Total time managing care of this patient today ____ minutes. Quality Stroke Does the patient have a stroke diagnosis?: No VTE Prior VTE?: No VTE Risk Level:: Medical - moderate - high VTE Device Contraindication: N/A - Device Ordered VTE Drug Contraindication: Treatment Not Indicated
[2023-12-06] MEDS: ondansetron HCL 4 MG/2 ML VIAL IVPUSH (14:07)
--- NOTE | 2023-12-06 14:35 | HO.PM.IMPN ---
Subjective Subjective Date of Service: 12/06/23 Interval History: Seen and evaluated this morning laying comfortable in bed Denies any fever or chills tolerated surgery well, pain under fair control no bleeding Review of Systems Review of Systems: Yes all other systems are reviewed and are negative Physical Exam Vital Signs: Vital Signs: Last Vital Signs Temp 97.4 F 12/06/23 11:31 Pulse 67 12/06/23 11:31 Resp 20 12/06/23 11:31 BP 129/61 12/06/23 11:31 Pulse Ox 97 12/06/23 11:31 O2 Del Method Room Air 12/06/23 11:31 O2 Flow Rate 2 12/06/23 07:14 BMI result Body Mass Index 19.2 Const: Other: Constitutional : Awake, interactive, not in distress Neck : Normal inspection, Supple Cardiovascular : RRR, no JVP, no lower extremity edema Respiratory : good bilateral air entry, no crackles, wheezes or rhonchi Gastrointestinal: soft, lax, Normal bowel sounds, surgical area covered, no drainage Skin : Warm, Dry Neurological : Alert & oriented x3, No focal deficit Objective Data Active Medications Albuterol Sulfate (Albuterol Sulfate 90 Mcg 8 Gm Inhaler) 1 puff INHALE RQ4H PRN PRN Reason: Shortness of Breath/Wheezing Calcium Carbonate/Cholecalciferol (Calcium + Vitamin D 250 Mg Tablet) 250 mg PO DAILY [facility] Last Admin: 12/06/23 09:31 Dose: 250 mg Documented By: GABRIEL Hydromorphone HCl (Hydromorphone Hcl 0.5 Mg/0.5 Ml Syringe) 0.25 mg IVPUSH Q3H PRN; Protocol PRN Reason: Pain, Severe (Pain Scale 7-10) Acetaminophen (Ofirmev) 1,000 mg in 100 mls @ 400 mls/hr IV Q6H [facility] Stop: 12/06/23 15:14 Last Infusion: 12/06/23 10:15 Dose: Infused Documented By: GABRIEL Ondansetron HCl (Ondansetron Hcl 4 Mg/2 Ml Vial) 4 mg IVPUSH Q8H PRN PRN Reason: Nausea and Vomiting Last Admin: 12/06/23 14:07 Dose: 4 mg Documented By: GABRIEL Oxycodone HCl (Oxycodone Hcl Immed Release 5 Mg Tablet) 5 mg PO Q6H PRN PRN Reason: Pain, Moderate(Pain Scale 4-6) Last Admin: 12/06/23 09:32 Dose: 5 mg Documented By: GABRIEL Pantoprazole Sodium (Pantoprazole Sodium 40 Mg/10 Ml Vial) 40 mg IVPUSH BID@0630,1630 [facility] Last Admin: 12/06/23 05:35 Dose: 40 mg Documented By: NUBIA Paroxetine HCl (Paroxetine Hcl 10 Mg Tablet) 10 mg PO DAILY [facility] Last Admin: 12/06/23 09:32 Dose: 10 mg Documented By: GABRIEL Senna (Sennosides 8.6 Mg Tablet) 17.2 mg PO BEDTIME PRN PRN Reason: Constipation Last Admin: 12/06/23 09:31 Dose: 17.2 mg Documented By: GABRIEL Sodium Chloride (0.9 % Sodium Chloride Flush 3 Ml Syringe) 3 ml IVFLUSH QSHIFT [facility] Last Admin: 12/06/23 09:32 Dose: 3 ml Documented By: GABRIEL Vitamin D (Cholecalciferol (Vitamin D3) 25 Mcg Tablet) 25 mcg PO DAILY [facility] Last Admin: 12/06/23 09:32 Dose: 25 mcg Documented By: GABRIEL Zolpidem Tartrate (Zolpidem Tartrate 5 Mg Tablet) 5 mg PO BEDTIME PRN PRN Reason: Insomnia Labs 12/06/23 06:11 12/06/23 06:11 Labs: Laboratory Results - last 24 hr 12/06/23 06:11 MCV 69.1 L MCH 21.4 L MCHC 30.9 L RDW 17.5 H Plt Count 258 MPV 10.6 Absolute Nucleated RBC 0.000 Nucleated RBC % (auto) 0.0 Anion Gap 9 L Estim Creat Clear Calc 45.2 Estimated GFR > 60 Random Glucose 164 H Calcium 8.1 L Assessment and Plan (1) Colon cancer: Status: Acute (2) S/P right colectomy: Status: Acute (3) GI (gastrointestinal bleed): Status: Acute Plan 78F PMH pulmonary fibrosis, glaucoma, vit d deficiency, osteoporosis, chronic constipation, presented with diarrhea and abd pain, found to have iron deficiency anemia Right colon mass s/p right coloctomy POD 1 pending pathology followed by surgery pain management dc Ferrell start PT chronic iron deficiency anemia due to lower gi bleed hgb stable EGd\Colonoscopy showed colonic mass continue ppi dysphagia [employer] diarrhea resolved pulmonary fibrosis stable mood diosrder paxil dvt prophyalxis - scp due to suspected bleed full code reason for continued hospitalization: plan for adancing diet after right colectomy Quality Stroke Does the patient have a stroke diagnosis?: No VTE Prior VTE?: No VTE Risk Level:: Medical - moderate - high VTE Device Contraindication: N/A - Device Ordered VTE Drug Contraindication: Treatment Not Indicated
--- NOTE | 2023-12-06 15:02 | HO.POSTANES ---
Post Anesthesia Evaluation Post Anesthesia Evaluation Date of Service: 12/06/23 Vital Signs: Vital Signs Temp Pulse Resp BP Pulse Ox O2 Del Method O2 Flow Rate 12/06/23 11:31 97.4 F 67 20 129/61 97 Room Air 12/06/23 08:25 65 153/67 H 100 12/06/23 08:00 96 Room Air 12/06/23 07:14 97.5 F 65 20 153/67 H 100 Nasal Cannula 2 12/06/23 03:22 97.3 F 65 20 159/73 H 100 Nasal Cannula 2 Anesthesia: General Endotracheal-GETA Mental Status: Awake Pain Control: Satisfactory Nausea/Vomiting: None Hydration: Adequate Anesthesia-Related Issues: No Anes. Related Issues
[2023-12-06] MEDS: Ferrous Sulfate 324 MG TABLET.DR PO (17:23)
[2023-12-07] MEDS: Acetaminophen 325 MG TABLET 975 MG PO ×3 (00:34→15:42)
[2023-12-07] MEDS: Pantoprazole Sodium 40 MG/10 ML VIAL IVPUSH ×2 (05:35→18:10)
[2023-12-07 07:11] VITALS: BP 152/71; PULSE 79; RESP 20; TEMP 36.7; O2SAT 94
--- NOTE | 2023-12-07 08:51 | P.PNGS_ITS ---
Subjective Subjective Date of Service: 12/07/23 Interval history: Reports some abdominal pain this morning, no BM or flatus yet but feels the urge. Tolerating solid food without nausea or vomiting. Physical Exam 2 Vital Signs: Vital Signs: Last Vital Signs Temp 98.1 F 12/07/23 07:11 Pulse 79 12/07/23 07:11 Resp 20 12/07/23 07:11 BP 152/71 H 12/07/23 07:11 Pulse Ox 94 12/07/23 07:11 O2 Del Method Room Air 12/07/23 07:11 O2 Flow Rate 2 12/06/23 07:14 BMI result Body Mass Index 19.2 Const: General: no acute distress Nutritional Appearance: well nourished Orientation/consciousness: patient oriented x3 Resp: Effort & Inspection: normal respiratory effort, no audible wheezes, no cough and no respiratory distress GI: Inspection: Yes normal to inspection Palpation (GI): Soft to palpation, Tenderness to palpation present (GI) (Cassie-incisional), no guarding and not rigid Neuro: General: patient oriented x3 Extrem: General: No edema Objective Data Active Medications Acetaminophen (Acetaminophen 325 Mg Tablet) 975 mg PO Q6H PRN PRN Reason: Pain, Severe (Pain Scale 7-10) Last Admin: 12/07/23 00:34 Dose: 975 mg Documented By: ROSANNA Albuterol Sulfate (Albuterol Sulfate 90 Mcg 8 Gm Inhaler) 1 puff INHALE RQ4H PRN PRN Reason: Shortness of Breath/Wheezing Calcium Carbonate/Cholecalciferol (Calcium + Vitamin D 250 Mg Tablet) 250 mg PO DAILY [facility] Last Admin: 12/06/23 09:31 Dose: 250 mg Documented By: GABRIEL Ferrous Sulfate (Ferrous Sulfate 324 Mg Tablet.) 324 mg PO BIDWM [facility] Last Admin: 12/06/23 17:23 Dose: 324 mg Documented By: GABRIEL Hydromorphone HCl (Hydromorphone Hcl 0.5 Mg/0.5 Ml Syringe) 0.25 mg IVPUSH Q3H PRN; Protocol PRN Reason: Pain, Severe (Pain Scale 7-10) Ondansetron HCl (Ondansetron Hcl 4 Mg/2 Ml Vial) 4 mg IVPUSH Q8H PRN PRN Reason: Nausea and Vomiting Last Admin: 12/06/23 14:07 Dose: 4 mg Documented By: GABRIEL Oxycodone HCl (Oxycodone Hcl Immed Release 5 Mg Tablet) 5 mg PO Q6H PRN PRN Reason: Pain, Moderate(Pain Scale 4-6) Last Admin: 12/06/23 09:32 Dose: 5 mg Documented By: GABRIEL Pantoprazole Sodium (Pantoprazole Sodium 40 Mg/10 Ml Vial) 40 mg IVPUSH BID@0630,1630 [facility] Last Admin: 12/07/23 05:35 Dose: 40 mg Documented By: ROSANNA Paroxetine HCl (Paroxetine Hcl 10 Mg Tablet) 10 mg PO DAILY [facility] Last Admin: 12/06/23 09:32 Dose: 10 mg Documented By: GABRIEL Senna (Sennosides 8.6 Mg Tablet) 17.2 mg PO BEDTIME PRN PRN Reason: Constipation Last Admin: 12/06/23 09:31 Dose: 17.2 mg Documented By: GABRIEL Sodium Chloride (0.9 % Sodium Chloride Flush 3 Ml Syringe) 3 ml IVFLUSH QSHIFT [facility] Last Admin: 12/06/23 23:53 Dose: 3 ml Documented By: ROSANNA Vitamin D (Cholecalciferol (Vitamin D3) 25 Mcg Tablet) 25 mcg PO DAILY [facility] Last Admin: 12/06/23 09:32 Dose: 25 mcg Documented By: GABRIEL Zolpidem Tartrate (Zolpidem Tartrate 5 Mg Tablet) 5 mg PO BEDTIME PRN PRN Reason: Insomnia Labs 12/06/23 06:11 12/06/23 06:11 Procedures Date of Service Date of Service: 12/07/23 Progress Note: A&P Assessment and plan (1) Primary adenocarcinoma of ascending colon: Status: Acute (2) S/P right colectomy: Status: Acute Plan 78-year-old female patient with crampy abdominal pain, anemia found to have a right colon adenocarcinoma status post hand assisted laparoscopic right colectomy pod 2. Patient is now ambulating, awaiting return of bowel function. Continue ambulation and incentive spirometry. Discharge once return of bowel function. Time Spent With Patient Time: Total time managing care of this patient today ____ minutes. Quality Stroke Does the patient have a stroke diagnosis?: No VTE Prior VTE?: No VTE Risk Level:: Medical - moderate - high VTE Device Contraindication: N/A - Device Ordered VTE Drug Contraindication: Treatment Not Indicated
--- NOTE | 2023-12-07 09:19 | MHC.CM.PN ---
Per MD, Patient may be medically cleared for dc today, pending her having a BM. Home with new [facility] is the goal and CM will continue to follow.
[2023-12-07] MEDS: Calcium + Vitamin D 250 MG TABLET PO (09:34)
[2023-12-07] MEDS: Ferrous Sulfate 324 MG TABLET.DR PO ×2 (09:36→15:46)
[2023-12-07] MEDS: Cholecalciferol (Vitamin D3) 25 MCG TABLET PO (09:36)
[2023-12-07] MEDS: PARoxetine HCL 10 MG TABLET PO (09:36)
[2023-12-07] MEDS: 0.9 % Sodium Chloride Flush 3 ML SYRINGE IVFLUSH ×3 (09:41→23:50)
[2023-12-07 09:45] VITALS: BP 152/71; PULSE 79; O2SAT 94
--- NOTE | 2023-12-07 11:27 | HO.PM.IMPN ---
Subjective Subjective Date of Service: 12/07/23 Interval History: Seen and evaluated this morning Denies any fever or chills pain under fair control ambulating in [place] did not move her bowel or passed gas Review of Systems Review of Systems: Yes all other systems are reviewed and are negative Physical Exam Vital Signs: Vital Signs: Last Vital Signs Temp 98.1 F 12/07/23 07:11 Pulse 79 12/07/23 09:45 Resp 20 12/07/23 07:11 BP 152/71 H 12/07/23 09:45 Pulse Ox 94 12/07/23 09:45 O2 Del Method Room Air 12/07/23 07:11 O2 Flow Rate 2 12/06/23 07:14 BMI result Body Mass Index 19.2 Const: Other: Constitutional : Awake, interactive, not in distress Neck : Normal inspection, Supple Cardiovascular : RRR, no JVP, no lower extremity edema Respiratory : good bilateral air entry, no crackles, wheezes or rhonchi Gastrointestinal: soft, lax, Normal bowel sounds, surgical area covered, no drainage Skin : Warm, Dry Neurological : Alert & oriented x3, No focal deficit Objective Data Active Medications Acetaminophen (Acetaminophen 325 Mg Tablet) 975 mg PO Q6H PRN PRN Reason: Pain, Severe (Pain Scale 7-10) Last Admin: 12/07/23 09:34 Dose: 975 mg Documented By: JUAN Albuterol Sulfate (Albuterol Sulfate 90 Mcg 8 Gm Inhaler) 1 puff INHALE RQ4H PRN PRN Reason: Shortness of Breath/Wheezing Calcium Carbonate/Cholecalciferol (Calcium + Vitamin D 250 Mg Tablet) 250 mg PO DAILY [facility] Last Admin: 12/07/23 09:34 Dose: 250 mg Documented By: JUAN Ferrous Sulfate (Ferrous Sulfate 324 Mg Tablet.) 324 mg PO BIDWM [facility] Last Admin: 12/07/23 09:36 Dose: 324 mg Documented By: JUAN Hydromorphone HCl (Hydromorphone Hcl 0.5 Mg/0.5 Ml Syringe) 0.25 mg IVPUSH Q3H PRN; Protocol PRN Reason: Pain, Severe (Pain Scale 7-10) Ondansetron HCl (Ondansetron Hcl 4 Mg/2 Ml Vial) 4 mg IVPUSH Q8H PRN PRN Reason: Nausea and Vomiting Last Admin: 12/06/23 14:07 Dose: 4 mg Documented By: GABRIEL Oxycodone HCl (Oxycodone Hcl Immed Release 5 Mg Tablet) 5 mg PO Q6H PRN PRN Reason: Pain, Moderate(Pain Scale 4-6) Last Admin: 12/06/23 09:32 Dose: 5 mg Documented By: GABRIEL Pantoprazole Sodium (Pantoprazole Sodium 40 Mg/10 Ml Vial) 40 mg IVPUSH BID@0630,1630 [facility] Last Admin: 12/07/23 05:35 Dose: 40 mg Documented By: ROSANNA Paroxetine HCl (Paroxetine Hcl 10 Mg Tablet) 10 mg PO DAILY [facility] Last Admin: 12/07/23 09:36 Dose: 10 mg Documented By: JUAN Senna (Sennosides 8.6 Mg Tablet) 17.2 mg PO BEDTIME PRN PRN Reason: Constipation Last Admin: 12/06/23 09:31 Dose: 17.2 mg Documented By: GABRIEL Sodium Chloride (0.9 % Sodium Chloride Flush 3 Ml Syringe) 3 ml IVFLUSH QSHIFT [facility] Last Admin: 12/07/23 09:41 Dose: 3 ml Documented By: JUAN Vitamin D (Cholecalciferol (Vitamin D3) 25 Mcg Tablet) 25 mcg PO DAILY [facility] Last Admin: 12/07/23 09:36 Dose: 25 mcg Documented By: JUAN Zolpidem Tartrate (Zolpidem Tartrate 5 Mg Tablet) 5 mg PO BEDTIME PRN PRN Reason: Insomnia Labs 12/06/23 06:11 12/06/23 06:11 Assessment and Plan (1) Mass of colon: Status: Inactive (2) S/P right colectomy: Status: Acute Plan 78F PMH pulmonary fibrosis, glaucoma, vit d deficiency, osteoporosis, chronic constipation, presented with diarrhea and abd pain, found to have iron deficiency anemia Right colon mass s/p right coloctomy POD 2 pending pathology surgery team input appreciated pain management Continue PT and increase physical activity To discharge home once chronic iron deficiency anemia due to lower gi bleed hgb stable EGD\Colonoscopy showed colonic mass that was removed by right Colectomy continue ppi Ferrous sulphate supplement dysphagia [employer] diarrhea resolved pulmonary fibrosis stable mood diosrder paxil dvt prophyalxis - [facility] due to suspected bleed full code reason for continued hospitalization: plan for adancing diet after right colectomy pending bowel motion and surgical clearance to discharge home Quality Stroke Does the patient have a stroke diagnosis?: No VTE Prior VTE?: No VTE Risk Level:: Medical - moderate - high VTE Device Contraindication: N/A - Device Ordered VTE Drug Contraindication: Treatment Not Indicated
[2023-12-07 11:51] VITALS: BP 152/74; PULSE 71; RESP 20; TEMP 36.7; O2SAT 97
--- NOTE | 2023-12-07 12:07 | MHC.SL.SWA ---
Speech Pathologist Impression: Risk of aspiration, hx dysphagia Risk of Aspiration Due to: Poor PO Intake Dysphasia Diet Status: No changes Liquid Consistency and Strategies for Safe Swallow: Liquid Intake Recommendation: Thin Liquid Intake Strategies: Small Sips No Straws Solid Food Consistency: Dietary Recommendations: Regular Additional Modifications to Solid Foods: -Upright 90 degree position during PO intake and for at least 45 minutes afterwards -Small bites of food -Moisten food and blend well with thick sauces and gravies -Chew food well -After each bite, swallow an additional 2-3 times before taking the next bite -Avoid mixed consistencies (i.e. soups, cereals), sticky textures, nuts, and dry crumbly/crunchy foods -Take small sips, one sip at a time -Double swallow with sips of liquid -Avoid ?chugging? liquids -Avoid the use of straws Oral Medication Intake: Crushed with Puree Please contact the pharmacy regarding appropriate crushable or liquid drug formulations that are available whenever modified delivery is recommended. Compensatory Strategies and Precautions to be Taken for Safe Swallow: Sitting Upright (90 deg) Double Swallow No Straw Small Bites and Sips Alternate Liquids/Solids Rate of Ingestion Change Avoid Specific Foods Supervision While Eating and Drinking for Safe Swallow: None Needed Foods to Avoid: Avoid mixed consistencies (i.e. soups, cereals), sticky textures, nuts, and dry crumbly/crunchy foods Swallowing Recommended Treatments: Compens. Strategy Educat. Recommendation for Speech: D/C Crisis Intervention Specialist Clinican/Clinical Fellow: No Supervisory Statement: I have reviewed and agree with the student/clinical fellow's documentation: N/A Speech Language Pathologist: Halina Hood M.A., CCC-ENVIRONMENTAL SERVICES ATTENDANT
--- NOTE | 2023-12-07 13:34 | P.CDIM_ITS ---
PROVIDER RESPONSE TEXT: To clarify, the appropriate diagnosis supported by the clinical indicators: Iron deficiency anemia due to acute on chronic blood loss QUERY TEXT: PHYSICIAN'S DOCUMENTATION REQUEST Date of Query: 12/07/2023 11:19 AM EST Patient Name: Tiffanie Friedman Admit Date: 12/03/2023 Dear Kyaw Schuler, A review of the medical record indicates additional documentation may be needed. Please review below and update the documentation accordingly. Clinical Indicators: H&P 12/03 - Acute on chronic blood loss anemia - due to suspected GI bleed Progress note 12/06 - Chronic iron deficiency anemia due to lower GI bleed Based on the above, consistency and clarity of a diagnosis that was noted within the medical record: Iron deficiency anemia due to chronic blood loss Iron deficiency anemia due to acute on chronic blood loss Other Other (explain) Clinically unable to determine (explain) Thank you, Beena Tomas, CCS, CDIS Use of terms such as suspected, likely, concern for, or probable (associated with a specific diagnosi s that is being evaluated, monitored, or treated as if it exists) are acceptable and can be coded in the inpatient se tting, when documented at the time of discharge. Please use your independent medical judgment in providing your response. THIS QUERY IS PART OF THE PERMANENT MEDICAL RECORD
[2023-12-07 20:26] VITALS: BP 137/97; PULSE 71; RESP 18; TEMP 36.2; O2SAT 97
[2023-12-07] MEDS: Sennosides 8.6 MG TABLET 17.2 MG PO (20:35)
[2023-12-07] MEDS: Acetaminophen 325 MG TABLET 650 MG PO (22:07)
--- NOTE | 2023-12-07 22:37 | PC.NURSE ---
Pt had large soft BM after prn Senna admin this evening
[2023-12-07 23:17] VITALS: BP 148/74; PULSE 75; RESP 18; TEMP 36.4; O2SAT 96
[2023-12-08 03:15] VITALS: BP 143/70; PULSE 67; RESP 18; TEMP 36.4; O2SAT 96
[2023-12-08] MEDS: Pantoprazole Sodium 40 MG/10 ML VIAL IVPUSH (05:26)
[2023-12-08 07:15] VITALS: BP 165/74; PULSE 77; RESP 18; TEMP 36.6; O2SAT 95
[2023-12-08] MEDS: PARoxetine HCL 10 MG TABLET PO (08:53)
[2023-12-08] MEDS: Calcium + Vitamin D 250 MG TABLET PO (08:53)
[2023-12-08] MEDS: Ferrous Sulfate 324 MG TABLET.DR PO (08:53)
[2023-12-08] MEDS: Acetaminophen 325 MG TABLET 650 MG PO (08:53)
[2023-12-08] MEDS: Cholecalciferol (Vitamin D3) 25 MCG TABLET PO (08:53)
[2023-12-08] MEDS: 0.9 % Sodium Chloride Flush 3 ML SYRINGE IVFLUSH (08:54)
--- NOTE | 2023-12-08 09:37 | P.DS_ITS ---
DS: Providers Provider Date of Service: 12/08/23 Date of admission: 12/03/23 12:33 Primary care physician: Kendell Vaughn MD Consults: 12/03/23 12:33 Consult to Gastroenterology Routine Consulting Provider: Zach Reza Reason for consultation: GI bleed, suspect lower. dysphagia 12/04/23 13:42 Consult to General Surgery Routine Consulting Provider[place] [facility] Reason for consultation: r colon mass DS: Diagnosis Discharge Diagnosis (1) Mass of colon: Status: Inactive (2) S/P right colectomy: Status: Acute (3) Primary adenocarcinoma of ascending colon: Status: Acute (4) GI (gastrointestinal bleed): Status: Acute DS: Summary Hospital Course Hospital Course: Admission note HPI 78-year-old female with history of pulmonary fibrosis, glaucoma, vitamin-D deficiency, osteoporosis, and chronic constipation presents to the ER with her sons, Quinton and Ta (with whom she lives), for evaluation of diarrhea and abdominal cramping ongoing for 1 week. She states she has had multiple episodes of watery diarrhea associated with lower abdominal cramping that resolves following bowel movement. No nausea or vomiting. No fevers. Denies any recent antibiotic use, recent travel, or sick contacts. She states following a bowel movement she feels lightheaded with pallor that resolved shortly but has not syncopized. She also tells me that she has been experiencing dysphagia to nearly all foods and sometimes water to the point of aspiration for about 3 years since she underwent cervical diskectomy with anterior approach. Has never been treated for an aspiration pneumonia. She has been using Imodium for her symptoms. She denies any melena or hematochezia. Her last colonoscopy was 10 years ago without abnormal finding. No personal family history of colon cancer. She ortega rodriguez me she underwent EGD about 3 years ago due to dysphagia which was read as normal by GI provider at [facility], but states she was shown pictures of her esophagus which was primarily read with a protruding purple vessel which she is concerned could be causing bleeding. She is tolerating soft diet. On arrival, vital stable though mildly hypertensive on admission to 154/68. No leukocytosis. There has been a gradual drop in H/H over the past 6 months. H/H today 9.5/31.0% (06/03-H/H 13.3/39.4, 09/03 11.0/35.7%, 09/20/23- 10.7/34.2%). Renal function baseline, lytes normal except for mild hypocalcemia. Lipase 186. UA negative. CT abd/pelvis negative for acute intra-abd abnormality. In the ED, stool occult blood positive. In the ED, given 1 L IVF and 40mg IV PPI. Hospital course The patient was primarly admitted for evaluation of abdominal discomfort and ibeth rrhea. she was found to have acute on chronic iron deficiency anemia due to lower GI bleed as she was evaluated by GI who did EGD\Colonoscopy which showed colonic mass that was removed by right Colectomy robot-marketing communications assistant surgery by dr Escobar who advanced her diet as tolerated and she was able to participate with PT and ambulate freely. she tolerated regular diet and was able to pass bowel movement. Pathology showing invasive Adenocarcinoma in prelim report. To be discharged on Ferrous sulphate supplement with a plan to follow up with surgery as outpatient. Time Attestation Discharge coordination time: Greater than 30 minutes Quality: Safe Use of Opioids Does Pt have an Active Cancer Diagnosis on the Problem List?: No Quality: Stroke Does the patient have a stroke diagnosis?: No Physical Exam Vital Signs: Vital Signs: Last Vital Signs Temp 97.9 F 12/08/23 07:15 Pulse 77 12/08/23 07:15 Resp 18 12/08/23 07:15 BP 165/74 H 12/08/23 07:15 Pulse Ox 95 12/08/23 07:15 O2 Del Method Room Air 12/08/23 07:15 O2 Flow Rate 2 12/06/23 07:14 BMI result Body Mass Index 19.2 Const: Other: Constitutional : Awake, interactive, not in distress Neck : Normal inspection, Supple Cardiovascular : RRR, no JVP, no lower extremity edema Respiratory : good bilateral air entry, no crackles, wheezes or rhonchi Gastrointestinal: soft, lax, Normal bowel sounds, surgical area covered, no drainage Skin : Warm, Dry Neurological : Alert & oriented x3, No focal deficit DS: Data Data Completed and Pending Completed studies during hospitalization [Text1]: Pending at discharge 12/04/23 13:08 Surgical [PTH] Routine Pending studies at discharge: Pending at discharge 12/05/23 14:39 Surgical [PTH] Routine Imaging CT scan - abdomen: Radiologist's impression: ITS Impressions Abdomen/Pelvis CT 12/03/23 09:19 IMPRESSION: 1. A cause for the patient's diffuse abdominal pain and diarrhea has not been found. 2. Incidental note made of pulmonary fibrosis, degenerative changes in the spine, anemia and a pessary. Fleischner guidelines were followed. Discharge Plan Discharge Anticipated Discharge Date/Time: 12/08/23 09:34 Patient Disposition: Home Health Service Discharge Diagnosis: Right colon adenocarcinoma Referrals: Kendell Vaughn MD [Primary Care Provider] - 1 Week Isreal Escobar MD [Physician] - 1 Week Discharge Medications: New oxycodone 5 mg tablet 5 mg PO Q4H PRN (Reason: pain (scale score 7-10)) Qty: 20 0RF Rx Instructions: Partial Fill upon patient request. ferrous sulfate 324 mg (65 mg iron) Tablet,Delayed Release (Dr/Ec) 324 mg PO DAILY Qty: 90 0RF Continued calcium citrate-vitamin D3 315 mg-5 mcg (200 unit) tablet 1 tab PO DAILY 30 Days Qty: 90 3RF cholecalciferol (vitamin D3) [Vitamin D3] 25 mcg (1,000 unit) capsule 25 mcg PO DAILY Qty: 90 1RF paroxetine HCl 10 mg tablet 10 mg PO QAM cranberry 400 mg capsule 400 mg PO DAILY Rx Instructions: administer with a meal docusate sodium [Colace] 100 mg capsule 100 mg PO DAILY estradiol 0.01 % (0.1 mg/gram) cream 1 g vaginal 2XW omeprazole 20 mg capsule,delayed release(DR/EC) 20 mg PO DAILY PRN (Reason: Acid Reflux) zoledronic wthy-rmvafyiq-gkbss [Reclast] 5 mg/100 mL piggyback 1 ea IV Q365D albuterol sulfate 90 mcg/actuation HFA aerosol inhaler 90 mcg inhalation Q4H Discharge Orders: Discharge Order (Routine); Ordered 12/08/23 Ordered By: Kyaw Schuler Diet: Advance to usual diet Activity on Discharge: No heavy lifting Stand Alone Forms: Patient Portal Discharge page Activity Restrictions/Additional Instructions: If the incision area is tender, you may apply an ice pack for short intervals (No more than 20 minutes on, followed by at least 20 minutes off). Do not apply heat. Do not use creams, lotions, or topical antibiotics. These can cause infection or allergic reaction. Ok to shower. You have steri strips (small white cloth strips) covering your incision- these will fall off ~1 week. No heavy lifting (>10lbs) or strenuous activity! Follow up in office with Dr. Escobar in 1 week. ([phone]) Call Your Doctor If: -Your temperature exceeds 101.5? F -You experience excessive pain or swelling -You have an unexpected reaction to medication -You have excessive bleeding -You experience continued vomiting/nausea -Your incision begins to separate -Your incision shows signs of infection such as increased redness, swelling, excessive pain, drainage (light blood or clear fluid is normal) or heat Care Plan Goals: Return to baseline health and resume normal activities following recovery period. Health Concerns: right colon mass lower GI bleed anemia Plan of Treatment: s/p SRIDEVI right colectomy f/u in office in [address] Escobar pain control f/u pathology Assessment: as Above Patient Instructions: Colectomy Diet (DC)
--- NOTE | 2023-12-08 09:50 | P.F2F_ITS ---
Service Date Service Date: 12/08/23 Encounter Date of encounter: 12/08/23 Reasons for Services Signs and symptoms assessed: physical deconditioning Reason for physical therapy: home safety and mobility and therapeutic exercises Homebound: Leaving the home is medically contraindicated at this time without the asist of a device and/or another person due th the listed conditions above and below. Reason homebound: unsteady gait / fall risk Certification: Based on the above findings, I certify that this patient is confined to the home and needs intermittent group home care, physical therapy and/or speech therapy, or continues to need occupational therapy. The patient is under my care, and I have initiated the establishment of the plan of care. The patient will be followed by a physician who will periodically review the plan of care. Time Spent With Patient Time: Total time managing care of this patient today ____ minutes.
--- NOTE | 2023-12-08 09:56 | MHC.CM.PN ---
PT TO DC HOME WITH [facility] TO TRANSPORT
[2023-12-08 11:32] VITALS: BP 129/59; PULSE 79; RESP 16; TEMP 36.8; O2SAT 96
== END 2023-12-08 12:59 | disposition home health service (06) | DRG 330 ==
LOC: HO.ED 10:54 → HO.EDOVER 12:45 → HO.IMC 12:54
PROVIDERS: Internal Medicine; Internal Medicine Gastroenterology; Pathology Anatomic Pathology & Clinical Pathology; Surgery; Admitting Provider Physician Assistant; Emergency Provider Emergency Medicine; PCP Internal Medicine; Visit Provider Student in an Organized Health Care Education/Training Program
PROC: 0DB98ZX Excision of Duodenum, Via Natural or Artificial Opening Endoscopic, Diagnostic (ICD-10-PCS; principal; 2023-12-04 14:20)
PROC: 0DTE0ZZ Resection of Large Intestine, Open Approach (ICD-10-PCS; principal; 2023-12-05 11:30)
DX: C18.2 Malignant neoplasm of ascending colon (principal); D62 Acute posthemorrhagic anemia; D63.1 Anemia in chronic kidney disease; R13.10 Dysphagia, unspecified; J84.10 Pulmonary fibrosis, unspecified; M81.0 Age-related osteoporosis without current pathological fracture; E83.52 Hypercalcemia; F39 Unspecified mood [affective] disorder; Z79.899 Other long term (current) drug therapy
CPT/HCPCS: 36415; 74176; 80048; 80053; 81003; 81210; 81288; 82378; 82728; 83540; 83690; 85025; 85027; 86850; 86900; 86901; 87493; 88305; 88309; 88313; 88341; 88342; 92526; 92610; 94640; 97116; 97162; 99024; 99285; C1758; C9113; J0131; J0360; J0665; J1170; J2371; J2405; J2704; J3010; J7120

== ENCOUNTER → 2023-12-03 12:33 | Outpatient (BNV) | payer MEDICARE, SELFPAY | PROVIDERS: Admitting Provider Physician Assistant; Emergency Provider Emergency Medicine; PCP Internal Medicine; Visit Provider Physician Assistant Surgical | DX: K63.89 Other specified diseases of intestine (principal); C18.2 Malignant neoplasm of ascending colon | CPT/HCPCS: 44204; 99024; 99222; 99499 ==

== ENCOUNTER → 2023-12-03 12:33 | Outpatient (BNV) | payer MEDICARE, SELFPAY | PROVIDERS: Admitting Provider Physician Assistant; Emergency Provider Emergency Medicine; PCP Internal Medicine; Visit Provider Physician Assistant | DX: C18.2 Malignant neoplasm of ascending colon (principal); K63.89 Other specified diseases of intestine; Z90.49 Acquired absence of other specified parts of digestive tract; K92.2 Gastrointestinal hemorrhage, unspecified | CPT/HCPCS: 99223; 99232; 99239; G0180 ==

== ENCOUNTER 2023-12-13 11:09 | Outpatient (AMB) | payer MEDICARE, SELFPAY ==
--- NOTE | 2023-12-13 11:14 | A.OFFVIS_ITS ---
Intake Vital Signs 12/13/23 11:15 Height 4 ft 10 in Weight 94 lb 0.8 oz BMI 19.7 BP 110/60 Blood Pressure Location Lt brachial Position Sitting Pulse 67 Pulse Source Pulse Oximeter Pulse Oximetry (%) 97 Oxygen Delivery Method Room Air Intake Visit Reasons: COPD Intake Note: pt is here for follow up feeling good, had operation a week a ago for colon cancer and seeing Dr. Nolan. Assistant District Attorney Required: No Allergies Sulfa (Sulfonamide Antibiotics) Allergy (Severe, Verified 12/13/23 12:01) Anaphylaxis codeine [CODEINE] Allergy (Intermediate, Verified 12/13/23 12:01) GI UPSET erythromycin base Adverse Reaction (Severe, Verified 12/13/23 12:01) gi upset Medication List - Last Reconciled 12/13/23 by Shad Trujillo MD albuterol sulfate 90 mcg/actuation 90 mcg inhalation Q4H calcium citrate-vitamin D3 315 mg-5 mcg (200 unit) 1 tab PO DAILY 30 days cholecalciferol (vitamin D3) (Vitamin D3) 25 mcg PO DAILY cranberry 400 mg PO DAILY docusate sodium (Colace) 100 mg PO DAILY estradiol 0.01%(0.1mg/gram) 1 g vaginal 2XW ferrous sulfate 324 mg PO DAILY omeprazole 20 mg PO DAILY PRN paroxetine HCl 10 mg PO QAM zoledronic eidv-hqpgpihk-mibdo 5 mg/100 mL (Reclast) 1 ea IV Q365D Do you need a note to return to daycare/school/sports/work: No HPI COPD HPI Details THIS 78 YEARS OLD FEMALE, WHO LOOKS AMAZINGLY GOOD FOR HER AGE, COMES FOR PULMONARY FOLLOW-UP AFTER 1 YEAR. SHE IS BEING FOLLOWED FOR CHRONIC BIBASILAR IDIOPATHIC PULMONARY FIBROSIS, WHICH SHOWS UP ON THE PLAIN CHEST X-RAY WELL ON CT SCAN. BUT SYMPTOMATICALY SHE HAS BEEN STABLE AND WITHOUT ANY SIGNIFICANT SYMPTOMS. SHE HAS BOUTS OF COUGH ONLY WHEN SHE GETS SOME UPPER RESPIRATORY INFECTION ONCE OR TWICE A YEAR, AND THEN SHE MAY USE ALBUTEROL INHALER A FEW TIMES. OTHERWISE SHE HAS NOT REQUIRED. ANY TREATMENT JUST LAST WEEK SHE UNDERWENT ROBOTIC SURGERY AND HAD COLON RESECTION FOR A NEWLY DISCOVERED CARCINOMA OF THE COLON. SHE HAD NO COMPLICATIONS OF THE OPERATION. SHE WAS GIVEN INCENTIVE SPIROMETRY DEVICE, TO DO DEEP BREATHING EXERCISES. [facility] Medical History Mass of colon Pulmonary fibrosis Glaucoma Vitamin D deficiency Hypercalciuria Osteoporosis Surgical History Hx of appendectomy History of endoscopy History of surgery on wrist Hx of neck surgery Hx of adenoidectomy Hx of tonsillectomy Hx of colonoscopy Hx of hammer toe correction History of carpal tunnel surgery Family History Father Lung cancer Mother CVD (cardiovascular disease) Social History Household Members: Children Housing: House Alcohol intake: never Comment: COUNTS CORRECT Patient Tobacco Use Status: Former Tobacco user Years Smoked: 5 service: No Review of Systems Const All systems reviewed & are unremarkable except as noted in HPI and below Eyes Reports no additional complaints ENT Reports no additional complaints and Reports neck pain (Mild, s/p neck surgery) Card Denies chest pain, Denies irregular heart rhythm and Denies leg edema Resp Reports as per HPI GI Reports no additional complaints Reports no additional complaints Musc Reports neck pain (Mild, s/p neck surgery) Skin/Breast Reports system reviewed and no additional complaints, except as documented Neuro Reports no additional complaints Psych Reports no additional complaints Physical Exam Vital Signs: Last Vital Signs Pulse 67 12/13/23 11:15 BP 110/60 12/13/23 11:15 Pulse Ox 97 12/13/23 11:15 Oxygen Delivery Method Room Air 12/13/23 11:15 BMI result Body Mass Index 19.7 Const General: healthy appearing, comfortable, no acute distress, alert and awake Orientation/consciousness: patient oriented x3 HEENT Head: Yes normal to inspection General nose exam: No nasal polyps present and No nasal discharge present Face and sinus: Yes sinuses nontender Mouth: oropharynx normal Throat: Yes posterior oropharynx normal Eyes General: appearance normal, both eyes and all related structures Neck Neck: Yes normal visual inspection, Yes no lymphadenopathy, Yes trachea midline, Yes no JVD and Yes other (Surgical scar in right sub mandibular area.) Thyroid: Thyroid normal Chest Chest palpation & inspection: normal inspection of the chest, normal palpation of entire chest wall and no tenderness Resp Effort & Inspection: normal respiratory effort Auscultation: crackles (DOES HAVE A FEW INSPIRATORY CREPITATIONS OVER BOTH BASILAR AREAS.) and no wheezes Cardio Palpation: normal PMI Rate: regular rate Rhythm: regular rhythm Heart sounds: no gallops and no murmurs Peripheral pulses: Peripheral pulses 2+ throughout GI Palpation (GI): Soft to palpation, nontender, No hepatosplenomegaly present and no masses Auscultation: normal bowel sounds Back/Spine/Pelvis Thoracic/Lumbar Spine: thoracic and lumbar spine normal to inspection Skin General skin exam: no rashes or lesions noted Neuro General: patient oriented x3 and no focal motor deficits Cranial nerves: Yes CN's II-XII intact bilaterally Extrem General: Yes normal to inspection, Yes no clubbing, cyanosis or edema and Yes no calf tenderness Psych Appearance: grossly normal and well kempt Speech and movement: Normal speech and movement present Results Reviewed Results Reviewed: CT SCAN OF ABDOMEN AND PELVIS, ON 12/03 SHOWS FIBROTIC CHANGES IN THE LUNG BASES, SLIGHTLY MORE PROMINENT THAN IT WAS SEEN IN 2017. Assessment & Plan Assessment & Plan (1) Pulmonary fibrosis: Comment: PULMONARY FIBROSIS IS VERY MILD,UNCHANGED OVER THE YEARS , AND ESSENTAILLY ASYMPTOMATIC . MILD OCCASIONAL BOUTS OF COUGH AND WHEEZING ARE RELATED TO USUAL VIRAL ILLNESS OR SEASONAL NASAL CONGESTION. Code(s): J84.10 - Pulmonary fibrosis, unspecified Plan: JUST USE ALBUTEROL HFA 1 OR 2 PUFFS Q 6 HOURS P.R.N. FOR CHEST CONGESTION OR BOUTS OF COUGH. CONTINUE TO DO DEEP BREATHING EXERCISES WITH INCENTIVE SPIROMETRY 3 TIMES A DAY Coding Level of Care Code Est Pt Level 3 (16435) Diagnoses Pulmonary fibrosis J84.10
[2023-12-13 11:15] VITALS: BP 110/60; PULSE 67; O2SAT 97; BMI 19.7
== END 2023-12-13 11:57 | disposition home or self-care (01) ==
PROVIDERS: PCP Internal Medicine; Visit Provider Internal Medicine
DX: J84.10 Pulmonary fibrosis, unspecified (principal)
CPT/HCPCS: 99213

== ENCOUNTER → 2023-12-13 11:09 | Outpatient (BNVA) | payer MEDICARE, SELFPAY | PROVIDERS: PCP Internal Medicine; Visit Provider Internal Medicine | DX: J84.10 Pulmonary fibrosis, unspecified (principal) | CPT/HCPCS: 99212 ==

== ENCOUNTER → 2023-12-14 13:53 | Outpatient (BNV) | payer MEDICARE, SELFPAY | PROVIDERS: PCP Internal Medicine; Visit Provider Internal Medicine | DX: C18.9 Malignant neoplasm of colon, unspecified (principal); D50.9 Iron deficiency anemia, unspecified | CPT/HCPCS: 99204; 99212; 99214; G2211 ==

== ENCOUNTER 2023-12-18 14:06 | Outpatient (AMB) | payer MEDICARE, SELFPAY ==
--- NOTE | 2023-12-18 14:08 | MHC.OFFVIS ---
Intake Vital Signs 12/18/23 14:19 Height 4 ft 10 in Weight 85 lb 4 oz BMI 17.8 BP 134/62 Blood Pressure Location Lt brachial Position Sitting Pulse 74 Intake Visit Reasons: s/p Hand assisted laparoscopic right colectomy Intake Note: Patient is seen in office for post op assessment post laparoscopic right colectomy. Pt c/o: denies any concerns at the time of visit Roll Clamp Operator Required: No Accompanied by: Son Allergies Sulfa (Sulfonamide Antibiotics) Allergy (Severe, Verified 12/18/23 14:19) Anaphylaxis codeine [CODEINE] Allergy (Intermediate, Verified 12/18/23 14:19) GI UPSET erythromycin base Adverse Reaction (Severe, Verified 12/18/23 14:19) gi upset Medication List - Last Reconciled 12/18/23 by Isreal Escobar MD albuterol sulfate 90 mcg/actuation 90 mcg inhalation Q4H calcium citrate-vitamin D3 315 mg-5 mcg (200 unit) 1 tab PO DAILY 30 days cholecalciferol (vitamin D3) (Vitamin D3) 25 mcg PO DAILY cranberry 400 mg PO DAILY docusate sodium (Colace) 100 mg PO DAILY estradiol 0.01%(0.1mg/gram) 1 g vaginal 2XW ferrous sulfate 324 mg PO DAILY omeprazole 20 mg PO DAILY PRN paroxetine HCl 10 mg PO QAM zoledronic mceq-tbbstbmt-szbzm 5 mg/100 mL (Reclast) 1 ea IV Q365D HPI HPI Comments History of Present Illness Details 78-year-old female patient returning 2 weeks following a hand assisted laparoscopic right colectomy for adenocarcinoma, with 0/29 lymph nodes with metastatic disease (pT3 N0, stage IIa). Patient feels well but still is easily tired. She denies abdominal pain, nausea or vomiting. Her appetite is good her bowels are normal. She is currently on iron so bowels are black. She is being evaluated by Dr. Wang. [facility] Medical History Colon cancer Vasovagal near syncope Diarrhea GI (gastrointestinal bleed) Pulmonary fibrosis Glaucoma Vitamin D deficiency Hypercalciuria Osteoporosis Surgical History S/P laparoscopic colectomy (12/05/23) S/P right colectomy Hx of appendectomy History of endoscopy History of surgery on wrist Hx of neck surgery Hx of adenoidectomy Hx of tonsillectomy Hx of colonoscopy Hx of hammer toe correction History of carpal tunnel surgery Family History Father Lung cancer Mother CVD (cardiovascular disease) Social History Household Members: Children Housing: House Alcohol intake: never Comment: COUNTS CORRECT Patient Tobacco Use Status: Former Tobacco user Years Smoked: 5 service: No Physical Exam Vital Signs: Last Vital Signs Pulse 74 12/18/23 14:19 BP 134/62 12/18/23 14:19 BMI result Body Mass Index 17.8 Const General: no acute distress Nutritional Appearance: well nourished Orientation/consciousness: patient oriented x3 Limitations: no limitations Resp Effort & Inspection: normal respiratory effort GI Other: Midline and trocar incisions are clean, dry, and intact without redness or discharge. No evidence of incisional hernias or infection. Skin General skin exam: no rashes or lesions noted Neuro General: patient oriented x3 Extrem General: Yes no clubbing, cyanosis or edema Assessment & Plan Assessment & Plan (1) Primary adenocarcinoma of ascending colon: Code(s): C18.2 - Malignant neoplasm of ascending colon Plan Patient returns 2 weeks following a SRIDEVI right hemicolectomy. She tolerated the procedure well and appears to be doing very well. She will follow-up with Dr. Wang and should follow up in our office in approximately 1 month. She is welcome to call sooner for any new concerns. She should continue to avoid lifting greater than 10 lb but may liberalize her diet to a full regular diet. Coding Level of Care Code Global (19356) Diagnoses Primary adenocarcinoma of ascending colon C18.2
[2023-12-18 14:19] VITALS: BP 134/62; PULSE 74; BMI 17.8
== END 2023-12-18 14:37 | disposition home or self-care (01) ==
PROVIDERS: PCP Internal Medicine; Visit Provider Surgery
DX: C18.2 Malignant neoplasm of ascending colon (principal)
CPT/HCPCS: 99024

== ENCOUNTER → 2023-12-18 14:06 | Outpatient (BNVA) | payer MEDICARE, SELFPAY | PROVIDERS: PCP Internal Medicine; Visit Provider Surgery | DX: Z48.3 Aftercare following surgery for neoplasm (principal); C18.2 Malignant neoplasm of ascending colon | CPT/HCPCS: 99212 ==

== ENCOUNTER 2023-12-20 09:57 | Outpatient (REF) | payer MEDICARE, SELFPAY ==
--- NOTE | ~2023-12-20 | XR_ITS ---
EXAMINATION: XR hip LT min 2V, XR hip RT min 2V CLINICAL INFORMATION: Reason for Exam abnormal bone scan COMPARISON: Hip radiographs 02/23/2023 TECHNIQUE: Two views of the right hip and 2 views of the left hip FINDINGS: No acute fracture or dislocation. Advanced osteoarthritis of the pubic symphysis with complete loss of joint space progressed from prior. 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 Focus of ossification noted adjacent to the left greater trochanter likely reflecting sequela of remote trauma/tendon tearing. No suspicious lytic or sclerotic osseous lesion appreciated however radiographs have limited sensitivity. Suture chain material overlies the right lower quadrant. XR/XR hip LT min 2V IMPRESSION: * Focus of ossification noted adjacent to the left greater trochanter likely reflecting sequela of remote trauma/tendon tearing. No suspicious lytic or sclerotic osseous lesion appreciated however radiographs have limited sensitivity. * Advanced osteoarthritis of the pubic symphysis with complete loss of joint space progressed from prior. 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
--- NOTE | ~2023-12-20 | XR_ITS ---
EXAMINATION: XR lumbar spine 2-3V, XR cervical spine 3V CLINICAL INFORMATION: Abnormal bone scan COMPARISON: Bone scan 11/27/2023, cervical spine radiographs 06/16/2021 TECHNIQUE: 3 views of the cervical spine and 3 views of the lumbar spine FINDINGS: CERVICAL SPINE: The cervical spine is visualized to the level of C7-T1 on the lateral view. Stable anterolisthesis of C4 on C5 fixated by anterior cervical discectomy and spinal fusion with osseous fusion across the fused vertebral bodies as well as the posterior elements of C3-C5. No evidence of hardware fracture or complication. Vertebral body heights are otherwise maintained. Lateral masses of C1 are well aligned on C2. Visualized portion of the dens is intact. Moderate multilevel degenerative disc disease similar to prior. No suspicious lytic or osseous lesion appreciated however radiographs have limited sensitivity. No prevertebral soft tissue swelling. LUMBAR SPINE: 5 nonrib-bearing lumbar-type vertebral bodies. Vertebral body heights are maintained. Levoconvex curvature of the lower lumbar spine. Grade 1 anterolisthesis of L3 on L4 through L5 on S1. Advanced multilevel degenerative disc disease with loss of disc space height and facet arthropathy. No suspicious lytic or sclerotic osseous lesion appreciated however radiographs have limited sensitivity. Suture chain material overlies the right lower quadrant. XR/XR lumbar spine 2-3V IMPRESSION: * Stable anterolisthesis of C4 on C5 fixated by anterior cervical discectomy and spinal fusion with osseous fusion across the fused vertebral bodies as well as the posterior elements of C3-C5. No evidence of hardware fracture or complication. * Moderate multilevel cervical degenerative disc disease similar to prior. * Levoconvex curvature of the lower lumbar spine. Grade 1 anterolisthesis of L3 on L4 through L5 on S1. * Advanced multilevel lumbar degenerative disc disease with loss of disc space height and facet arthropathy. * No suspicious lytic or sclerotic osseous lesion appreciated however radiographs have limited sensitivity and if any clinical concern for osseous metastases a CT or MR should be obtained.
--- NOTE | ~2023-12-20 | XR_ITS ---
EXAMINATION: XR lumbar spine 2-3V, XR cervical spine 3V CLINICAL INFORMATION: Abnormal bone scan COMPARISON: Bone scan 11/27/2023, cervical spine radiographs 06/16/2021 TECHNIQUE: 3 views of the cervical spine and 3 views of the lumbar spine FINDINGS: CERVICAL SPINE: The cervical spine is visualized to the level of C7-T1 on the lateral view. Stable anterolisthesis of C4 on C5 fixated by anterior cervical discectomy and spinal fusion with osseous fusion across the fused vertebral bodies as well as the posterior elements of C3-C5. No evidence of hardware fracture or complication. Vertebral body heights are otherwise maintained. Lateral masses of C1 are well aligned on C2. Visualized portion of the dens is intact. Moderate multilevel degenerative disc disease similar to prior. No suspicious lytic or osseous lesion appreciated however radiographs have limited sensitivity. No prevertebral soft tissue swelling. LUMBAR SPINE: 5 nonrib-bearing lumbar-type vertebral bodies. Vertebral body heights are maintained. Levoconvex curvature of the lower lumbar spine. Grade 1 anterolisthesis of L3 on L4 through L5 on S1. Advanced multilevel degenerative disc disease with loss of disc space height and facet arthropathy. No suspicious lytic or sclerotic osseous lesion appreciated however radiographs have limited sensitivity. Suture chain material overlies the right lower quadrant. XR/XR cervical spine 3V IMPRESSION: * Stable anterolisthesis of C4 on C5 fixated by anterior cervical discectomy and spinal fusion with osseous fusion across the fused vertebral bodies as well as the posterior elements of C3-C5. No evidence of hardware fracture or complication. * Moderate multilevel cervical degenerative disc disease similar to prior. * Levoconvex curvature of the lower lumbar spine. Grade 1 anterolisthesis of L3 on L4 through L5 on S1. * Advanced multilevel lumbar degenerative disc disease with loss of disc space height and facet arthropathy. * No suspicious lytic or sclerotic osseous lesion appreciated however radiographs have limited sensitivity and if any clinical concern for osseous metastases a CT or MR should be obtained.
--- NOTE | ~2023-12-20 | XR_ITS ---
EXAMINATION: XR hip LT min 2V, XR hip RT min 2V CLINICAL INFORMATION: Reason for Exam abnormal bone scan COMPARISON: Hip radiographs 02/23/2023 TECHNIQUE: Two views of the right hip and 2 views of the left hip FINDINGS: No acute fracture or dislocation. Advanced osteoarthritis of the pubic symphysis with complete loss of joint space progressed from prior. 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 Focus of ossification noted adjacent to the left greater trochanter likely reflecting sequela of remote trauma/tendon tearing. No suspicious lytic or sclerotic osseous lesion appreciated however radiographs have limited sensitivity. Suture chain material overlies the right lower quadrant. XR/XR hip RT min 2V IMPRESSION: * Focus of ossification noted adjacent to the left greater trochanter likely reflecting sequela of remote trauma/tendon tearing. No suspicious lytic or sclerotic osseous lesion appreciated however radiographs have limited sensitivity. * Advanced osteoarthritis of the pubic symphysis with complete loss of joint space progressed from prior. 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
== END 2023-12-20 09:58 | disposition home or self-care (01) ==
LOC: HO.XRAY 09:57
PROVIDERS: PCP Internal Medicine; Visit Provider Internal Medicine
DX: M25.552 Pain in left hip (principal); M25.551 Pain in right hip; R94.8 Abnormal results of function studies of other organs and systems
CPT/HCPCS: 72040; 72100; 73502

== ENCOUNTER 2024-01-16 10:31 | Outpatient (REF) | payer MEDICARE, SELFPAY ==
--- NOTE | ~2024-01-16 | MR_ITS ---
EXAMINATION: MR LUMBAR SPINE WITHOUT CONTRAST CLINICAL INFORMATION: Spinal stenosis. COMPARISON: None available. TECHNIQUE: MRI of the lumbar spine was obtained using routine sequences without contrast. FINDINGS: Askwhdoc-oq-ppqdbo levocurvature of the lumbar spine with apex at L3-L4. Grade 1 anterolisthesis at L3-L4 and L4-L5. Mild retrolisthesis at L1-L2. Heterogeneous bone marrow signal is likely degenerative. No acute bone marrow abnormality. The vertebral body heights are preserved. Multilevel disc desiccation and disc height loss, severe at L4-L5 and L5-S1 and to a lesser extent L2-L3. Multilevel endplate osteophytosis. The visualized spinal cord is normal in caliber. No abnormal cord signal. The conus medullaris terminates at L1-L2. T11-T12: Diffuse disc bulge. No significant spinal canal or neural foraminal narrowing. T12-L1: Diffuse disc bulge. No significant spinal canal or neural foraminal narrowing. L1-L2: Diffuse disc bulge with superimposed left paracentral disc protrusion. Ligamentum flavum hypertrophy and bilateral facet arthrosis. Mass effect on the thecal sac without significant spinal canal stenosis. Mild left neural foraminal narrowing. L2-L3: Diffuse disc bulge and bilateral facet arthrosis. No significant spinal canal stenosis. Moderate left neural foraminal narrowing. L3-L4: Diffuse disc bulge, ligamentum flavum hypertrophy, and bilateral facet arthrosis. Mild spinal canal stenosis. Ohhcrmao-oi-mkxxyi right and mild left neural foraminal narrowing with the disc abutting the exiting L3 nerve roots bilaterally. L4-L5: Annular fissure and bilateral facet arthrosis. No significant spinal canal stenosis. Mild right greater than left neural foraminal narrowing with the disc abutting the right exiting L4 nerve roots. L5-S1: Diffuse disc bulge and bilateral facet arthrosis. No significant spinal canal or neural foraminal narrowing; however, the disc abuts the exiting L5 nerve roots bilaterally. There is diffuse atrophy of the paravertebral musculature. MR/MR lumbar spine wo con IMPRESSION: -Ohcupzpq-tn-hqrtms levocurvature of the lumbar spine with apex at L3-L4 and grade 1 anterolisthesis at L3-L4 and L4-L5. Mild retrolisthesis at L1-L2. -Multilevel lumbar spondylosis with mild spinal canal stenosis at L3-L4. Neural foraminal narrowing is worst and lxjbvitu-qq-fthqgt on the right at L3-L4 and moderate on the left at L2-L3.
== END 2024-01-16 10:32 | disposition home or self-care (01) ==
LOC: HO.MRI 10:31
PROVIDERS: PCP Internal Medicine; Visit Provider Internal Medicine
DX: M48.07 Spinal stenosis, lumbosacral region (principal)
CPT/HCPCS: 72148

== ENCOUNTER 2024-01-17 12:59 | Outpatient (AMB) | payer MEDICARE, SELFPAY ==
--- NOTE | 2024-01-17 12:21 | A.OFFVIS_ITS ---
Intake Vital Signs 01/17/24 13:20 Height 4 ft 10 in Weight 89 lb 2 oz BMI 18.6 BP 110/70 Blood Pressure Location Lt brachial Position Sitting Intake Visit Reasons: 1 mth follow up laparoscopic right colectomy Intake Note: Patient is seen in office for one month follow up visit, post laparoscopic right colectomy. Pt c/o: denies any concern at the time of visit, seen oncology Dr Wang Manager Of Network Required: No Accompanied by: Self / Same As Patient Allergies Sulfa (Sulfonamide Antibiotics) Allergy (Severe, Verified 01/17/24 13:20) Anaphylaxis codeine [CODEINE] Allergy (Intermediate, Verified 01/17/24 13:20) GI UPSET erythromycin base Adverse Reaction (Severe, Verified 01/17/24 13:20) gi upset HPI HPI Comments History of Present Illness Details 78-year-old female patient status post r ight hemicolectomy for T3 N0 M0 colon cancer. She was evaluated by Medical Oncology and no chemotherapy recommended. She feels great and denies any ongoing abdominal symptoms. She is eating well denies any difficulty with her bowels. [facility] Medical History Colon cancer Vasovagal near syncope Diarrhea GI (gastrointestinal bleed) Pulmonary fibrosis Glaucoma Vitamin D deficiency Hypercalciuria Osteoporosis Surgical History S/P laparoscopic colectomy (12/05/23) S/P right colectomy Hx of appendectomy History of endoscopy History of surgery on wrist Hx of neck surgery Hx of adenoidectomy Hx of tonsillectomy Hx of colonoscopy Hx of hammer toe correction History of carpal tunnel surgery Family History Father Lung cancer Mother CVD (cardiovascular disease) Social History Household Members: Children Housing: House Alcohol intake: never Comment: COUNTS CORRECT Patient Tobacco Use Status: Former Tobacco user Years Smoked: 5 service: No Physical Exam Vital Signs: Last Vital Signs BP 110/70 01/17/24 13:20 BMI result Body Mass Index 18.6 Const General: no acute distress Nutritional Appearance: well nourished Orientation/consciousness: patient oriented x3 Limitations: no limitations Resp Effort & Inspection: normal respiratory effort GI Other: Midline and trocar incisions are clean, dry, and intact without redness or discharge. No evidence of incisional hernias or infection. Skin General skin exam: no rashes or lesions noted Neuro General: patient oriented x3 Extrem General: Yes no clubbing, cyanosis or edema Assessment & Plan Assessment & Plan (1) Primary adenocarcinoma of ascending colon: Code(s): C18.2 - Malignant neoplasm of ascending colon Plan 78-year-old female patient status post hand assisted laparoscopic right colectomy for adenocarcinoma of the ascending colon (stage IIA). She tolerated the procedure well and returns now approximately 1 month from surgery. She will continue to follow-up with medical oncology and gastroenterology. She should follow up in our office as needed. Coding Level of Care Code Global (33763) Diagnoses Primary adenocarcinoma of ascending colon C18.2
[2024-01-17 13:20] VITALS: BP 110/70; BMI 18.6
== END 2024-01-17 13:57 | disposition home or self-care (01) ==
PROVIDERS: PCP Internal Medicine; Visit Provider Surgery
DX: C18.2 Malignant neoplasm of ascending colon (principal)
CPT/HCPCS: 99024

== ENCOUNTER → 2024-01-17 12:59 | Outpatient (BNVA) | payer MEDICARE, SELFPAY | PROVIDERS: PCP Internal Medicine; Visit Provider Surgery | DX: Z48.3 Aftercare following surgery for neoplasm (principal); C18.2 Malignant neoplasm of ascending colon; Z98.890 Other specified postprocedural states | CPT/HCPCS: 99212 ==

== ENCOUNTER 2024-01-30 11:10 | Outpatient (AMB) | payer MEDICARE, SELFPAY ==
--- NOTE | 2024-01-30 11:21 | MHC.OFFVIS ---
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 Patient reports ongoing pain for many years with some treatment. Hx of occipital neuralgia on the right side. Hx of PT which made her pain so much worse. Hx of acupuncture with no relief. Hx of doing yoga with mild relief. Allergies Sulfa (Sulfonamide Antibiotics) Allergy (Severe, Verified 01/30/24 11:22) Anaphylaxis codeine [CODEINE] Allergy (Intermediate, Verified 01/30/24 11:22) GI UPSET erythromycin base Adverse Reaction (Severe, Verified 01/30/24 11:22) gi upset Medication List - Last Reconciled 01/30/24 by Marlin Hull MD albuterol sulfate 90 mcg/actuation 90 mcg inhalation Q4H calcium citrate-vitamin D3 315 mg-5 mcg (200 unit) 1 tab PO DAILY 30 days cholecalciferol (vitamin D3) (Vitamin D3) 25 mcg PO DAILY cranberry 400 mg PO DAILY docusate sodium (Colace) 100 mg PO DAILY estradiol 0.01%(0.1mg/gram) 1 g vaginal 2XW ferrous sulfate 325 mg PO DAILY omeprazole 20 mg PO DAILY PRN paroxetine HCl 10 mg PO QAM zoledronic msdv-gwqsgitd-qptuq 5 mg/100 mL (Reclast) 1 ea IV Q365D HPI HPI Comments History of Present Illness Details History of right occipital neuralgia, which she thinks is the source of all her pain. This has been on/off for years. Has seen Dr. Conteh, thought that it was cervical issue, had ACDF 5-8 years ago. Has tried accupuncture and PT over the years. Relief only from yoga (chair yoga). Had occipital injection with Dr. Aguillon 2 years ago, not much relief. There was a plan for MBB C3-4 and C2-3 but did not pursue it. Right worse than left neck pain, would go down to trapezius or shoulder, but not lower. Tight, limited ROM cervical, both sides. Denies numbness. Denies weakness. Full shoulder ROM. No radiation to orbits or ear. ROS swallowing issues from ACDF. [facility] Medical History (Updated 01/30/24 @ 12:40 by Marlin Hull MD) Myofascial pain Colon cancer Vasovagal near syncope Diarrhea GI (gastrointestinal bleed) Pulmonary fibrosis Glaucoma Vitamin D deficiency Hypercalciuria Osteoporosis Surgical History (Updated 01/30/24 @ 12:40 by Marlin Hull MD) S/P laparoscopic colectomy (12/05/23) S/P right colectomy Hx of appendectomy History of endoscopy History of surgery on wrist Hx of neck surgery Hx of adenoidectomy Hx of tonsillectomy Hx of colonoscopy Hx of hammer toe correction History of carpal tunnel surgery Family History Father Lung cancer Mother CVD (cardiovascular disease) Social History Household Members: Children Housing: House Alcohol intake: never Comment: COUNTS CORRECT Patient Tobacco Use Status: Former Tobacco user Years Smoked: 5 service: No Review of Systems Const All systems reviewed & are unremarkable except as noted in HPI and below Physical Exam Constitutional: Patient appears to be in no acute distress, well nourished and well developed. Patient was appropriately conversant and oriented. Good historian. MSK: Inspection reveals appropriate head and neck positioning. Tender on right upper trapezius reproducing her usual pain. Cervical ROM was full. Spurling's sign negative. Negative Holbrook sign. Bilateral shoulder, elbow and wrist ROM WNL. No ligamentous laxity or crepitance. No increased effusion. Strength is 5/5 in all muscle groups tested. No increased tone noted. Neurological: Neurologic examination of the upper and lower extremities was nonfocal with intact sensation, muscle stretch reflexes and without focal motor deficits . Fulton?s negative bilaterally. Gait is non-antalgic without loss of balance. Patient was able to perform heel walk and toe walk. Results Reviewed Results Reviewed: Ordering Physician: eKndell Vaughn MD Date of Service: 12/20/23 Procedure(s): XR cervical spine 3V Accession Number(s): [id number] cc: Kendell Vaughn MD~ EXAMINATION: XR lumbar spine 2-3V, XR cervical spine 3V CLINICAL INFORMATION: Abnormal bone scan COMPARISON: Bone scan 11/27/2023, cervical spine radiographs 06/16/2021 TECHNIQUE: 3 views of the cervical spine and 3 views of the lumbar spine FINDINGS: CERVICAL SPINE: The cervical spine is visualized to the level of C7-T1 on the lateral view. Stable anterolisthesis of C4 on C5 fixated by anterior cervical discectomy and spinal fusion with osseous fusion across the fused vertebral bodies as well as the posterior elements of C3-C5. No evidence of hardware fracture or complication. Vertebral body heights are otherwise maintained. Lateral masses of C1 are well aligned on C2. Visualized portion of the dens is intact. Moderate multilevel degenerative disc disease similar to prior. No suspicious lytic or osseous lesion appreciated however radiographs have limited sensitivity. No prevertebral soft tissue swelling. LUMBAR SPINE: 5 nonrib-bearing lumbar-type vertebral bodies. Vertebral body heights are maintained. Levoconvex curvature of the lower lumbar spine. Grade 1 anterolisthesis of L3 on L4 through L5 on S1. Advanced multilevel degenerative disc disease with loss of disc space height and facet arthropathy. No suspicious lytic or sclerotic osseous lesion appreciated however radiographs have limited sensitivity. Suture chain material overlies the right lower quadrant. XR/XR cervical spine 3V IMPRESSION: * Stable anterolisthesis of C4 on C5 fixated by anterior cervical discectomy and spinal fusion with osseous fusion across the fused vertebral bodies as well as the posterior elements of C3-C5. No evidence of hardware fracture or complication. * Moderate multilevel cervical degenerative disc disease similar to prior. * Levoconvex curvature of the lower lumbar spine. Grade 1 anterolisthesis of L3 on L4 through L5 on S1. * Advanced multilevel lumbar degenerative disc disease with loss of disc space height and facet arthropathy. * No suspicious lytic or sclerotic osseous lesion appreciated however radiographs have limited sensitivity and if any clinical concern for osseous metastases a CT or MR should be obtained. I reviewed records from the following: Pain management Recent ER visit Assessment & Plan Assessment & Plan (1) Myofascial pain: Code(s): M79.18 - Myalgia, other site (2) Hx of neck surgery: Code(s): Z98.890 - Other specified postprocedural states Plan History of cervical ACDF and past history of right occipital neuralgia. Presenting today more of myofascial picture rather than cervical radiculopathy or ocipital. No signs of myelopathy. Lower suspicion that this is coming from cervical facet pain. Recommended trial of deep massage, can explore if [facility] offers classes for this integrated with yoga. Talked about difference between ice and heat, would use frozen ball to massage after yoga classes. Take frequent rest breaks if will go gardening. Last resort would be to trial trigger point injections. She will think about this. Assessment and plan discussed with patient, and patient was agreeable. All questions were answered thoroughly. Follow-up 2 months, call sooner if needed. Marlin Hull MD, HILARY Board Certified, [place] [employer] and [employer] (ABPMR) Board Certified, [place] [employer] (ABEM) Coding Level of Care Code Tele New Pt Level 3 (81002) Diagnoses Myofascial pain M79.18 Hx of neck surgery Z98.890
== END 2024-01-30 12:06 | disposition home or self-care (01) ==
PROVIDERS: PCP Internal Medicine; Visit Provider Physical Medicine & Rehabilitation
DX: M79.18 Myalgia, other site (principal)
CPT/HCPCS: 99203

== ENCOUNTER → 2024-01-30 11:11 | Outpatient (BNVA) | payer MEDICARE, SELFPAY | PROVIDERS: PCP Internal Medicine; Visit Provider Physical Medicine & Rehabilitation | DX: M79.18 Myalgia, other site (principal); M54.2 Cervicalgia; M54.81 Occipital neuralgia; Z98.890 Other specified postprocedural states | CPT/HCPCS: 99202 ==

== ENCOUNTER 2024-01-31 13:22 | Outpatient (REF) | payer MEDICARE, SELFPAY ==
[2024-01-31 13:25] LABS: MANUAL DIFF FLAG NO
[2024-01-31 13:41] LABS: Iron 270 mcg/dL (30-160); Percent Iron Saturation 86 % (15-50); Total Iron Binding Capacity 314 mcg/dL (228-428); Unsaturated Iron Binding 44 ug/dL
[2024-01-31 13:45] LABS: Basophils Absolute Auto 0.1 X10*3/uL (0.0-0.2); Basophils Percent Auto 1.1 % (0-2); Eosinophils Absolute Auto 0.1 X10*3/uL (0.0-0.4); Eosinophils Percent Auto 1.7 % (0-4); Hematocrit 40.1 % (37.0-47.0); Hemoglobin 12.9 g/dl (12.0-16.0); Imm Gran Abs Auto 0.01 X10*3/uL (0.00-0.03); Imm Gran Pct Auto 0.2 % (0.0-0.4); Lymphocytes Absolute Auto 1.2 X10*3/uL (1.2-4.9); Lymphocytes Percent Auto 25.7 % (20-40); Mean Corpuscular HGB Conc 32.2 g/dl (31.0-35.0); Mean Corpuscular Hemoglobin 25.2 pg (27.0-33.0); Mean Corpuscular Volume 78.5 fL (80.0-98.0); Mean Platelet Volume 10.7 fL (9.4-12.3); Monocytes Absolute Auto 0.6 X10*3/uL (0.1-1.2); Monocytes Percent Auto 12.4 % (2-11); Neutrophils Absolute Auto 2.8 x10*3/uL (2.0-8.3); Neutrophils Percent Auto 58.9 % (45-73); Platelet Count 211 X10*3/uL (160-400); Red Blood Count 5.11 X10*6/uL (4.20-5.50); White Blood Count 4.7 X10*3/uL (4.8-10.8)
== END 2024-01-31 13:23 | disposition home or self-care (01) ==
LOC: HO.LNP 13:22
PROVIDERS: Visit Provider Internal Medicine
DX: R10.84 Generalized abdominal pain (principal)
CPT/HCPCS: 83540; 85025

== ENCOUNTER 2024-02-21 11:21 | Outpatient (AMB) | payer MEDICARE, SELFPAY ==
[2024-02-21 11:39] VITALS: BP 134/60; PULSE 63; BMI 18.8
--- NOTE | 2024-02-21 11:39 | A.OFFVIS_ITS ---
Intake Vital Signs 02/21/24 11:39 Height 4 ft 10 in Weight 90 lb 2.705 oz BMI 18.8 BP 134/60 Blood Pressure Location Lt brachial Position Sitting Pulse 63 Pulse Source Pulse Oximeter Intake Visit Reasons: F/U Osteoporosis-mailbox full Intake Note: Patient present today for Osteoporosis follow up visit. Previously seen by Dr. Paz on 03/26/23. Media Relations Coordinator Required: No Accompanied by: Self / Same As Patient Allergies Sulfa (Sulfonamide Antibiotics) Allergy (Severe, Verified 02/21/24 11:43) Anaphylaxis codeine [CODEINE] Allergy (Intermediate, Verified 02/21/24 11:43) GI UPSET erythromycin base Adverse Reaction (Severe, Verified 02/21/24 11:43) gi upset Medication List - Last Reconciled 02/21/24 by Jono Nieves MD albuterol sulfate 90 mcg/actuation 90 mcg inhalation Q4H albuterol sulfate 90 mcg/actuation (Ventolin HFA) 1 inh inhalation QID calcium citrate-vitamin D3 315 mg-5 mcg (200 unit) 1 tab PO DAILY 30 days cholecalciferol (vitamin D3) (Vitamin D3) 25 mcg PO DAILY cranberry 400 mg PO DAILY docusate sodium (Colace) 100 mg PO DAILY estradiol 0.01%(0.1mg/gram) 1 g vaginal 2XW omeprazole 20 mg PO DAILY PRN paroxetine HCl 10 mg PO QAM zoledronic jigb-qvhstubk-ukrle 5 mg/100 mL (Reclast) 1 ea IV Q365D zoledronic hjus-pimlmekc-bgpye 5 mg/100 mL (Reclast) ea IV HPI HPI Comments History of Present Illness Details 78 YO Female with PMHx GERD and Osteoporosis who is seen in F/U for Osteoporosis. The patient last saw Dr. Paz on 03/26/2023 After her initial visit she completed a full biochemical assessment which revealed elevated urinary calcium, with a slightly high Vitamin D, but was otherwise WNL. She was asked to stop the Vitamin D and Calcium supplement and repeat levels, which did normalize. She was recommended for anabolic therapy for her Osteoporosis, but refused this. She was started on Prolia instead, and received her first dose 09/23/2020 and second dose 03/23/2021. She then had spinal surgery with an implant placed shortly before her 3rd dose was due, so dose was held to allow hardware integration. In early Dec 2021 she fell and suffered a fracture of her wrist. She was then started on IV Reclast, and received her first dose 06/05/2022. She is seen in F/U today. With regards to her history of Osteoporosis: First diagnosed in 2001. Received treatment in the past with Fosamax for approximately 7 years at the time of diagnosis. Stopped this in 2008, then started it again in 2017. In 2018 she was only able to tolerate this for 6 months as she developed severe GERD from it which resolved with cessation. No history of pathologic fracture or ONJ. Has 3-4 servings of dietary calcium per day in the form of milk and yogurt. Takes Calcium citrate 325 mg once a day. Takes 1000 IU of Vitamin D daily. Does use a PPI daily. Denies ever using anticoagulant, antiepileptic or glucocorticoid medication. Does weight bearing exercise days per week in the form of walking and gardening. Fracture history: Recent fracture of the R wrist. 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 Had 2 children. Did not breastfeed. Menopause was 46. Did not use HRT. History of Kidney stones: Denies Denies a family history of Osteoporosis or hip fracture. UTD on dental cleanings and sees dentist every 6 months. No planned upcoming dental work or extractions. DXA: 11/02/21 FINDINGS: AP SPINE L1-L4 (excluding L3): The data of L1-L4 has been changed to exclude the L3 vertebral body, because degenerative changes at this level may cause overestimation of lumbar spine density. Current: BMD 0.947 g/cm2, Z-score 0.6, T-score -1.9, osteopenia, 0.1% increase from previous, 5.3% decrease from baseline (<5% change is not significant). Prior: BMD 0.946 g/cm2. Baseline: BMD 1.000 g/cm2. LEFT FEMUR, NECK: Current: BMD 0.769 g/cm2, Z-score 0.6, T-score -1.9, osteopenia. Prior: BMD 0.697 g/cm2. Baseline: BMD 0.736 g/cm2. LEFT FEMUR, TOTAL: Current: BMD 0.760 g/cm2, Z-score 0.4, T-score -2.0, osteopenia, 8.9% increase from previous, 1.8% decrease from baseline (<5% change is not significant). Prior: BMD 0.698 g/cm2. Baseline: BMD 0.774 g/cm2. IDENTIFIED RISK FACTORS: Menopause, osteoporosis. HISTORY OF FRACTURE: None listed. MEDICATIONS: Calcium supplements or multivitamin, vitamin D, Prolia. Labs: Laboratory Tests 09/25/22 09/25/22 09/25/22 07:30 09:24 09:24 Sodium 138 Potassium 4.5 Creatinine 0.64 Estimated GFR > 60 Alk Phos Bone Spec ific 8.4 Albumin 3.8 N-Telopeptide X-li nked 35 25-OH Vitamin D To pilar 58.0 PTH Intact 20 Calcium (PTH Intac t) 9.0 Has received 2 doses of Reclast. Last DEXA showed low bone mass. Patient currently on calcium and vitamin-D supplementation [facility] Medical History (Updated 01/30/24 @ 12:40 by Marlin Hull MD) Myofascial pain Colon cancer Vasovagal near syncope Diarrhea GI (gastrointestinal bleed) Pulmonary fibrosis Glaucoma Vitamin D deficiency Hypercalciuria Osteoporosis Surgical History (Updated 02/21/24 @ 11:47 by ALEX Santoyo) History of hemicolectomy S/P laparoscopic colectomy (12/05/23) S/P right colectomy Hx of appendectomy History of endoscopy History of surgery on wrist Hx of neck surgery Hx of adenoidectomy Hx of tonsillectomy Hx of colonoscopy Hx of hammer toe correction History of carpal tunnel surgery Family History Father Lung cancer Mother CVD (cardiovascular disease) Social History Household Members: Children Housing: House Alcohol intake: never Comment: COUNTS CORRECT Patient Tobacco Use Status: Former Tobacco user Years Smoked: 5 service: No Assessment & Plan Assessment & Plan (1) Osteoporosis: Code(s): M81.0 - Age-related osteoporosis without current pathological fracture Qualifiers: Osteoporosis type: unspecified Presence of current pathological fracture: unspecified Qualified Code(s): M81.0 - Age-related osteoporosis without current pathological fracture Plan: This 78-year-old white female with a history of osteoporosis who has been treated in the past with oral bisphosphonates, Prolia and then intravenous Reclast for 2 doses. Recent DEXA showed low bone mass. Would continue calcium and vitamin-D supplementation. Will check urine NTX and if urine NTX rises would give another dose of Reclast. If NTX is suppressed will continue to follow on calcium and vitamin-D Coding Level of Care Code Est Pt Level 3 (58699) Diagnoses Osteoporosis, unspecified osteoporosis type, unspecified pathological fracture presence M81.0 Osteoporosis type: unspecified Presence of current pathological fracture: unspecified
== END 2024-02-21 12:11 | disposition home or self-care (01) ==
PROVIDERS: PCP Internal Medicine; Visit Provider Internal Medicine Endocrinology, Diabetes & Metabolism
DX: M81.0 Age-related osteoporosis without current pathological fracture (principal)
CPT/HCPCS: 99213

== ENCOUNTER → 2024-02-21 11:21 | Outpatient (BNVA) | payer MEDICARE, SELFPAY | PROVIDERS: PCP Internal Medicine; Visit Provider Internal Medicine Endocrinology, Diabetes & Metabolism | DX: M81.0 Age-related osteoporosis without current pathological fracture (principal); E55.9 Vitamin D deficiency, unspecified | CPT/HCPCS: 99212 ==

== ENCOUNTER 2024-02-22 11:28 | Outpatient (REF) | payer MEDICARE, SELFPAY ==
[2024-02-22 11:49] LABS: Iron 51 mcg/dL (30-160); Percent Iron Saturation 16 % (15-50); Total Iron Binding Capacity 316 mcg/dL (228-428); Unsaturated Iron Binding 265 ug/dL
== END 2024-02-22 11:29 | disposition home or self-care (01) ==
LOC: HO.LNP 11:28
PROVIDERS: Visit Provider Internal Medicine
DX: D50.9 Iron deficiency anemia, unspecified (principal)
CPT/HCPCS: 83540

== ENCOUNTER 2024-04-02 10:02 | Outpatient (AMB) | payer MEDICARE, SELFPAY ==
--- NOTE | 2024-04-02 10:02 | A.OFFVIS_ITS ---
Intake Visit Reasons: OV-neck pain Intake Note: Tiffanie is an 78 year old female who presents today for a follow up of her neck pain. At her last visit trigger point injections were discussed. She reports that her neck is doing well with no concerns. She does report that she had previous surgery of the left basal joint. hx of Right Distal Radius ORIF 12/26/21. Allergies Sulfa (Sulfonamide Antibiotics) Allergy (Severe, Verified 03/17/24 13:15) Anaphylaxis codeine [CODEINE] Allergy (Intermediate, Verified 03/17/24 13:15) GI UPSET erythromycin base Adverse Reaction (Severe, Verified 03/17/24 13:15) gi upset Medication List - Last Reconciled 04/02/24 by Marlin Hull MD albuterol sulfate 90 mcg/actuation 90 mcg inhalation Q4H albuterol sulfate 90 mcg/actuation (Ventolin HFA) 1 inh inhalation QID calcium citrate-vitamin D3 315 mg-5 mcg (200 unit) 1 tab PO DAILY 30 days cholecalciferol (vitamin D3) (Vitamin D3) 25 mcg PO DAILY cranberry 400 mg PO DAILY docusate sodium (Colace) 100 mg PO DAILY estradiol 0.01%(0.1mg/gram) 1 g vaginal 2XW omeprazole 20 mg PO DAILY PRN paroxetine HCl 10 mg PO QAM zoledronic dhyx-afvpxdup-ozggy 5 mg/100 mL (Reclast) 1 ea IV Q365D zoledronic kmvy-dftncpon-ryjzj 5 mg/100 mL (Reclast) ea IV HPI Comments Details: History of right occipital neuralgia, which she thinks is the source of all her pain. This has been on/off for years. Has seen Dr. Conteh, thought that it was cervical issue, had ACDF 5-8 years ago. Has tried accupuncture and PT over the years. Relief only from yoga (chair yoga). Had occipital injection with Dr. Aguillon 2 years ago, not much relief. There was a plan for MBB C3-4 and C2-3 but did not pursue it. Was having right worse than left neck pain, would go down to trapezius or shoulder, but not lower. Tight, limited ROM cervical, both sides. Denies numbness. Denies weakness. Full shoulder ROM. No radiation to orbits or ear. Since last seen, she has been going to yoga which has helped with the tightness. She is feeling much better. [facility] Medical History (Updated 03/17/24 @ 14:43 by Mckayla Wang MD) Myofascial pain Colon cancer Vasovagal near syncope Diarrhea GI (gastrointestinal bleed) Pulmonary fibrosis Glaucoma Vitamin D deficiency Hypercalciuria Osteoporosis Surgical History History of hemicolectomy S/P laparoscopic colectomy (12/05/23) S/P right colectomy Hx of appendectomy History of endoscopy History of surgery on wrist Hx of neck surgery Hx of adenoidectomy Hx of tonsillectomy Hx of colonoscopy Hx of hammer toe correction History of carpal tunnel surgery Family History Father Lung cancer Mother CVD (cardiovascular disease) Social History Household Members: Children Housing: House Alcohol intake: never Comment: COUNTS CORRECT Patient Tobacco Use Status: Former Tobacco user Years Smoked: 5 service: No Physical Exam Constitutional: Patient appears to be in no acute distress, well nourished and well developed. Patient was appropriately conversant and oriented. Good historian. MSK: Inspection reveals appropriate head and neck positioning. Cervical ROM was full. Spurling's sign negative. Neurological: Neurologic examination of the upper and lower extremities was nonfocal with intact sensation, muscle stretch reflexes and without focal motor deficits . Fulton?s negative bilaterally. Gait is non-antalgic without loss of balance. Results Reviewed Results Reviewed: Ordering Physician: Kendell Vaughn MD Date of Service: 12/20/23 Procedure(s): XR cervical spine 3V Accession Number(s): [id number] cc: Kendell Vaughn MD~ EXAMINATION: XR lumbar spine 2-3V, XR cervical spine 3V CLINICAL INFORMATION: Abnormal bone scan COMPARISON: Bone scan 11/27/2023, cervical spine radiographs 06/16/2021 TECHNIQUE: 3 views of the cervical spine and 3 views of the lumbar spine FINDINGS: CERVICAL SPINE: The cervical spine is visualized to the level of C7-T1 on the lateral view. Stable anterolisthesis of C4 on C5 fixated by anterior cervical discectomy and spinal fusion with osseous fusion across the fused vertebral bodies as well as the posterior elements of C3-C5. No evidence of hardware fracture or complication. Vertebral body heights are otherwise maintained. Lateral masses of C1 are well aligned on C2. Visualized portion of the dens is intact. Moderate multilevel degenerative disc disease similar to prior. No suspicious lytic or osseous lesion appreciated however radiographs have limited sensitivity. No prevertebral soft tissue swelling. LUMBAR SPINE: 5 nonrib-bearing lumbar-type vertebral bodies. Vertebral body heights are maintained. Levoconvex curvature of the lower lumbar spine. Grade 1 anterolisthesis of L3 on L4 through L5 on S1. Advanced multilevel degenerative disc disease with loss of disc space height and facet arthropathy. No suspicious lytic or sclerotic osseous lesion appreciated however radiographs have limited sensitivity. Suture chain material overlies the right lower quadrant. XR/XR cervical spine 3V IMPRESSION: * Stable anterolisthesis of C4 on C5 fixated by anterior cervical discectomy and spinal fusion with osseous fusion across the fused vertebral bodies as well as the posterior elements of C3-C5. No evidence of hardware fracture or complication. * Moderate multilevel cervical degenerative disc disease similar to prior. * Levoconvex curvature of the lower lumbar spine. Grade 1 anterolisthesis of L3 on L4 through L5 on S1. * Advanced multilevel lumbar degenerative disc disease with loss of disc space height and facet arthropathy. * No suspicious lytic or sclerotic osseous lesion appreciated however radiographs have limited sensitivity and if any clinical concern for osseous metastases a CT or MR should be obtained. Assessment & Plan Assessment & Plan (1) Myofascial pain: Code(s): M79.18 - Myalgia, other site Category: Medical (2) Hx of neck surgery: Code(s): Z98.890 - Other specified postprocedural states Category: Surgical Plan History of cervical ACDF and past history of right occipital neuralgia. No signs of myelopathy or radiculopathy. Myofascial pain improved with yoga. We discussed how to not over do yoga and gardening. How to use pillows for better sitting and posture, avoiding exacerbation, Assessment and plan discussed with patient, and patient was agreeable. All questions were answered thoroughly. Follow-up as needed. Marlin Hull MD, HILARY Board Certified, [place] [employer] and [employer] (ABPMR) Board Certified, [place] [employer] Electro[employer] (ABEM) Coding Level of Care Code Est Pt Level 3 (88456) Diagnoses Myofascial pain M79.18 Hx of neck surgery Z98.890
== END 2024-04-02 10:37 | disposition home or self-care (01) ==
PROVIDERS: PCP Internal Medicine; Visit Provider Physical Medicine & Rehabilitation
DX: M79.18 Myalgia, other site (principal); Z98.890 Other specified postprocedural states
CPT/HCPCS: 99213

== ENCOUNTER → 2024-04-02 10:02 | Outpatient (BNVA) | payer MEDICARE, SELFPAY | PROVIDERS: PCP Internal Medicine; Visit Provider Physical Medicine & Rehabilitation | DX: M79.18 Myalgia, other site (principal); Z98.890 Other specified postprocedural states | CPT/HCPCS: 99212 ==

== ENCOUNTER 2024-05-05 09:23 | Day surgery (SDC) | payer MEDICARE, SELFPAY ==
--- NOTE | 2024-05-01 12:20 | HO.ANESPROP2 ---
Documented by User: Anabel Carrington NP 05/01/24 12:21 HPI - Anesthesia Eval Consult details Narrative: 78yo F for Left Cataract Extraction IOL Insertion No previous cataract on record PMFSH Active Problems Active Problems: All Active Problems Hx of neck surgery (Acute) Myofascial pain (Acute) Primary adenocarcinoma of ascending colon (Chronic) Right inguinal hernia (Acute) Cervical spondylosis (Acute) Chronic pain of both shoulders (Acute) Muscle spasms of neck (Acute) Occipital neuralgia of right side (Acute) Cervicalgia (Acute) Stiffness of right hand joint (Acute) Distal radius fracture, right (Acute) Pulmonary fibrosis (Acute) Vitamin D deficiency (Acute) Hypercalciuria (Acute) Osteoporosis (Acute) Past Medical History Medical History Myofascial pain Colon cancer Vasovagal near syncope Diarrhea GI (gastrointestinal bleed) Pulmonary fibrosis Glaucoma Vitamin D deficiency Hypercalciuria Osteoporosis Family History Family History Father Lung cancer Mother CVD (cardiovascular disease) Family history of problems with anesthesia: No Surgical History Surgical History History of hemicolectomy S/P laparoscopic colectomy (12/05/23) S/P right colectomy Hx of appendectomy History of endoscopy History of surgery on wrist Hx of neck surgery Hx of adenoidectomy Hx of tonsillectomy Hx of colonoscopy Hx of hammer toe correction History of carpal tunnel surgery History of Problems with Anesthesia: Yes (PONV) Social History Social History Household Members: Children Housing: House Alcohol intake: never Comment: COUNTS CORRECT Patient Tobacco Use Status: Former Tobacco user Years Smoked: 5 Are you DNR?: No Advance Directives: No Advance Directives Information Provided: Yes Nutrition Risks: No Nutritional Risk service: No Meds Allergies Allergy/AdvReac Type Severity Reaction Status Date / Time Sulfa (Sulfonamide Allergy Severe Anaphylaxis Verified 05/05/24 10:52 Antibiotics) sulfamethoxazole Allergy Severe Anaphylaxis Verified 05/05/24 10:52 [From Bactrim] trimethoprim [From Bactrim] Allergy Severe Anaphylaxis Verified 05/05/24 10:52 codeine [CODEINE] Allergy Intermediate GI UPSET Verified 05/05/24 10:52 erythromycin base AdvReac Severe gi upset Verified 05/05/24 10:52 Home Medications ?Medication ?Instructions ?Recorded ?Confirmed ?Last Taken ?Type cranberry 400 mg capsule 400 mg PO DAILY 11/22/20 04/02/24 Unknown History docusate sodium 100 mg capsule 100 mg PO DAILY 11/22/20 04/02/24 Unknown History (Colace) estradiol 0.01% (0.1 mg/gram) 1 g vaginal 2XW 11/30/21 04/02/24 Unknown History vaginal cream omeprazole 20 mg capsule,delayed 20 mg PO DAILY PRN Acid Reflux 06/16/22 04/02/24 Unknown History release zoledronic acid 5 mg/100 mL in 1 ea IV Q365D 06/16/22 04/02/24 5 Months Ago History mannitol 5 %-water intravenous ~07/03/23 piggybck (Reclast) albuterol sulfate 90 mcg/actuation 90 mcg inhalation Q4H 12/05/22 04/02/24 Unknown History aerosol inhaler paroxetine HCl 10 mg tablet 10 mg PO QAM 12/03/23 04/02/24 Unknown History albuterol sulfate 90 mcg/actuation 1 inh inhalation QID 02/21/24 04/02/24 Unknown History aerosol inhaler (Ventolin HFA) zoledronic acid 5 mg/100 mL in ea IV 02/21/24 04/02/24 Unknown History mannitol 5 %-water intravenous piggybck (Reclast) Assessment and Plan Assessment Anesthesia Assessment: Chart Reviewed Final Anesthetic Review Family History of Problems with Anesthesia: No History of Problems with Anesthesia: Yes (PONV) Documented by User: Ziyad Henry MD 05/05/24 11:06 PMFSH Past Medical History Medical History Myofascial pain Colon cancer Vasovagal near syncope Diarrhea GI (gastrointestinal bleed) Pulmonary fibrosis Glaucoma Vitamin D deficiency Hypercalciuria Osteoporosis Family History Family History Father Lung cancer Mother CVD (cardiovascular disease) Surgical History Surgical History History of hemicolectomy S/P laparoscopic colectomy (12/05/23) S/P right colectomy Hx of appendectomy History of endoscopy History of surgery on wrist Hx of neck surgery Hx of adenoidectomy Hx of tonsillectomy Hx of colonoscopy Hx of hammer toe correction History of carpal tunnel surgery History of Problems with Anesthesia: Yes Social History Social History Household Members: Children Housing: House Alcohol intake: never Comment: COUNTS CORRECT Patient Tobacco Use Status: Former Tobacco user Years Smoked: 5 Are you DNR?: No Advance Directives: No Advance Directives Information Provided: Yes Nutrition Risks: No Nutritional Risk service: No Meds Allergies Allergy/AdvReac Type Severity Reaction Status Date / Time Sulfa (Sulfonamide Allergy Severe Anaphylaxis Verified 05/05/24 10:52 Antibiotics) sulfamethoxazole Allergy Severe Anaphylaxis Verified 05/05/24 10:52 [From Bactrim] trimethoprim [From Bactrim] Allergy Severe Anaphylaxis Verified 05/05/24 10:52 codeine [CODEINE] Allergy Intermediate GI UPSET Verified 05/05/24 10:52 erythromycin base AdvReac Severe gi upset Verified 05/05/24 10:52 Home Medications ?Medication ?Instructions ?Recorded ?Confirmed ?Last Taken ?Type cranberry 400 mg capsule 400 mg PO DAILY 11/22/20 04/02/24 Unknown History docusate sodium 100 mg capsule 100 mg PO DAILY 11/22/20 04/02/24 Unknown History (Colace) estradiol 0.01% (0.1 mg/gram) 1 g vaginal 2XW 11/30/21 04/02/24 Unknown History vaginal cream omeprazole 20 mg capsule,delayed 20 mg PO DAILY PRN Acid Reflux 06/16/22 04/02/24 Unknown History release zoledronic acid 5 mg/100 mL in 1 ea IV Q365D 06/16/22 04/02/24 5 Months Ago History mannitol 5 %-water intravenous ~07/03/23 piggybck (Reclast) albuterol sulfate 90 mcg/actuation 90 mcg inhalation Q4H 12/05/22 04/02/24 Unknown History aerosol inhaler paroxetine HCl 10 mg tablet 10 mg PO QAM 12/03/23 04/02/24 Unknown History albuterol sulfate 90 mcg/actuation 1 inh inhalation QID 02/21/24 04/02/24 Unknown History aerosol inhaler (Ventolin HFA) zoledronic acid 5 mg/100 mL in ea IV 02/21/24 04/02/24 Unknown History mannitol 5 %-water intravenous piggybck (Reclast) Exam Airway Mallampati Class: II TM Dist: >3cm Neck ROM: Limited Partial: Upper Assessment and Plan Assessment Anesthesia Assessment: Anesthesia Plan Discussed Final Anesthetic Review History of Problems with Anesthesia: Yes NPO: Yes ASA Class: II Final Preanesthetic Review: No Changes in Pt Med Stat, Meds/Allgs Chart Reviewed, Consent Obtained/Reviewed and Anes Risks/Benef Reviewed Patient Risk: Low Procedure Risk: Low Anesthetic Plan Anesthetic Plan: MAC: Disposition: Standard PACU
[2024-05-02 09:18] VITALS: BMI 18.0
[2024-05-05] MEDS: Lactated Ringers 500 ML 50 ML IV (10:32)
[2024-05-05] MEDS: Ketorolac Tromethamine 0.5% Op 10 ML DROPS 1 DROP EYE-LEFT ×3 (10:33→10:44)
[2024-05-05] MEDS: Tropicamide 1 % Ophth Sol 3 ML BTL 1 DROP EYE-LEFT ×3 (10:33→10:44)
[2024-05-05] MEDS: Tetracaine HCl/PF 0.5% Oph Sol 4 ML DROPS 1 DROP EYE-LEFT (10:33)
[2024-05-05] MEDS: Phenylephrine HCL 2.5% Oph SoL 2 ML BOTTLE 1 DROP EYE-LEFT ×3 (10:33→10:44)
[2024-05-05] MEDS: Cyclopentolate 1 % Ophth Sol 2 ML DRPBTL 1 DROP EYE-LEFT ×3 (10:33→10:44)
[2024-05-05 10:45] VITALS: BP 149/71; PULSE 67; RESP 18; TEMP 36.8; O2SAT 96
--- NOTE | 2024-05-05 12:09 | MHC.SHP ---
Pre-Procedural Eval Section A - 24 Hr Update-Section A only Date of Service: 05/05/24 Changes since office visit: No Cold of Flu in the past 2 weeks, No New Medical Problems, No Changes in Medication and No Patient answered all questions The patient has been examined within 24 hours of the surgical procedure. The History & Physical has been completed within 30 days and I have reviewed it.: Yes Section B - Complete if H&P > 30 days Chief Complaint: Age-related nuclear cataract, left eye Allergies: Allergies Allergy/AdvReac Type Severity Reaction Status Date / Time Sulfa (Sulfonamide Allergy Severe Anaphylaxis Verified 05/05/24 10:52 Antibiotics) sulfamethoxazole Allergy Severe Anaphylaxis Verified 05/05/24 10:52 [From Bactrim] trimethoprim [From Bactrim] Allergy Severe Anaphylaxis Verified 05/05/24 10:52 codeine [CODEINE] Allergy Intermediate GI UPSET Verified 05/05/24 10:52 erythromycin base AdvReac Severe gi upset Verified 05/05/24 10:52 Plan Diagnosis/Plan: Unchanged I have reviewed the history and physical and performed a pertinent physical examination on my patient. No changes have occurred unless specified. Time Spent With Patient Time: Total time managing care of this patient today ____ minutes.
--- NOTE | 2024-05-05 12:10 | HO.PNOPHT ---
Ophthalmology Procedure Procedure Date of Service: 05/05/24 Ophthalmology Viscoelastic: Healon Duet Dual Pack Pro Ophthalmology Lenses: IOL Acrysof MP - [id number] (22.5) Procedure Notes: PREOPERATIVE DIAGNOSIS: Decreased visual acuity left eye secondary to cataract POSTOPERATIVE DIAGNOSIS: Same PROCEDURE: Left cataract extraction with intraocular lens insertion SURGEON: Pardeep Vail M.D. ANESTHESIA: Topical/MAC ESTIMATED BLOOD LOSS: None COMPLICATIONS: None After obtaining informed consent, the patient was brought to the operation room suite and placed in the supine position. After adequate sedation per anesthesia, topical drops of Tetracaine were given to the left eye. The eye was then prepped and draped in the usual sterile fashion. The operating room microscope was then positioned over the operative eye and a lid speculum placed. A paracentesis was created. Viscoelastic was then instilled into the anterior chamber. A three plane incision was then created temporally, utilizing a 2.85 mm keratome. Capsulotomy forceps were then utilized to create a circular tear capsulotomy. Hydrodissection and hydrodelineation were carried out until adequate mobilization of the nucleus occurred. Phacoemulsification was then utilized to remove the dense central nucleus followed by removal of the cortical material utilizing the automated aspiration irrigation unit. Viscoat elastic was instilled into the posterior capsular bag followed by placement of a posterior chamber intraocular lens without difficulty. The residual Viscoat elastic was then removed utilizing the automated IA machine. The wound was check and found to be watertight. The patient tolerated the procedure well and the lid speculum was removed. Intracameral injection of Vigamox 0.1 mL followed by a subtenon injection of Kenalog-40 0.2 mL were administered. The patient will be seen in the a.m.
[2024-05-05 12:42] VITALS: BP 138/61; PULSE 76; RESP 16; TEMP 36.1; O2SAT 96
== END 2024-05-05 12:49 | disposition home or self-care (01) ==
PROVIDERS: PCP Internal Medicine; Visit Provider Ophthalmology
PROC: (CPT 66985; principal; 2024-05-05 11:20)
DX: H25.12 Age-related nuclear cataract, left eye (principal); H52.4 Presbyopia; Z83.511 Family history of glaucoma; H40.033 Anatomical narrow angle, bilateral; H18.413 Arcus senilis, bilateral; C18.9 Malignant neoplasm of colon, unspecified; J84.10 Pulmonary fibrosis, unspecified; M54.81 Occipital neuralgia; M81.0 Age-related osteoporosis without current pathological fracture; Z79.899 Other long term (current) drug therapy; Z88.2 Allergy status to sulfonamides; Z88.5 Allergy status to narcotic agent; Z87.891 Personal history of nicotine dependence
CPT/HCPCS: 66984; J2250; J2405; J3301; V2630

== ENCOUNTER 2024-05-19 08:53 | Day surgery (SDC) | payer MEDICARE, SELFPAY ==
[2024-05-19 10:04] VITALS: BP 132/71; PULSE 61; RESP 18; TEMP 36.1; O2SAT 98; BMI 17.7
--- NOTE | 2024-05-19 10:17 | HO.ANESPROP2 ---
HPI - Anesthesia Eval Consult details Narrative: 78 yo female patient for Right cataract extraction, IOL insertion PMFSH Active Problems Active Problems: All Active Problems Hx of neck surgery (Acute) Myofascial pain (Acute) Primary adenocarcinoma of ascending colon (Chronic) Right inguinal hernia (Acute) Cervical spondylosis (Acute) Chronic pain of both shoulders (Acute) Muscle spasms of neck (Acute) Occipital neuralgia of right side (Acute) Cervicalgia (Acute) Stiffness of right hand joint (Acute) Distal radius fracture, right (Acute) Pulmonary fibrosis (Acute) Vitamin D deficiency (Acute) Hypercalciuria (Acute) Osteoporosis (Acute) Past Medical History Medical History Myofascial pain Colon cancer Vasovagal near syncope Diarrhea GI (gastrointestinal bleed) Pulmonary fibrosis Glaucoma Vitamin D deficiency Hypercalciuria Osteoporosis Family History Family History Father Lung cancer Mother CVD (cardiovascular disease) Family history of problems with anesthesia: No Surgical History Surgical History History of hemicolectomy S/P laparoscopic colectomy (12/05/23) S/P right colectomy Hx of appendectomy History of endoscopy History of surgery on wrist Hx of neck surgery Hx of adenoidectomy Hx of tonsillectomy Hx of colonoscopy Hx of hammer toe correction History of carpal tunnel surgery History of Problems with Anesthesia: Yes (PONV) Social History Social History Household Members: Children Housing: House Alcohol intake: never Comment: COUNTS CORRECT Patient Tobacco Use Status: Former Tobacco user Years Smoked: 5 Are you DNR?: No Advance Directives: No Advance Directives Information Provided: Yes service: No Meds Allergies Allergy/AdvReac Type Severity Reaction Status Date / Time Sulfa (Sulfonamide Allergy Severe Anaphylaxis Verified 05/19/24 10:02 Antibiotics) sulfamethoxazole Allergy Severe Anaphylaxis Verified 05/19/24 10:02 [From Bactrim] trimethoprim [From Bactrim] Allergy Severe Anaphylaxis Verified 05/19/24 10:02 codeine [CODEINE] Allergy Intermediate GI UPSET Verified 05/19/24 10:02 erythromycin base AdvReac Severe gi upset Verified 05/19/24 10:02 Active Medications: Current Medications Lactated Ringer's (Lr) 1,000 mls @ 50 mls/hr IVCONT .Q20H KAR Povidone Iodine (Povidone Iodine 5 % Ophth Soln 30 Ml Bottle) 1 appl EYE-RIGHT PREOP PRN PRN Reason: Pre-Op Surgical Implant Prophy Home Medications ?Medication ?Instructions ?Recorded ?Confirmed ?Last Taken ?Type cranberry 400 mg capsule 400 mg PO DAILY 11/22/20 05/19/24 Unknown History docusate sodium 100 mg capsule 100 mg PO DAILY 11/22/20 05/19/24 Unknown History (Colace) estradiol 0.01% (0.1 mg/gram) 1 g vaginal 2XW 11/30/21 05/19/24 Unknown History vaginal cream omeprazole 20 mg capsule,delayed 20 mg PO DAILY PRN Acid Reflux 06/16/22 05/19/24 Unknown History release albuterol sulfate 90 mcg/actuation 90 mcg inhalation Q4H 12/05/22 05/19/24 Unknown History aerosol inhaler paroxetine HCl 10 mg tablet 10 mg PO QAM 12/03/23 05/19/24 Unknown History albuterol sulfate 90 mcg/actuation 1 inh inhalation QID 02/21/24 05/19/24 Unknown History aerosol inhaler (Ventolin HFA) Exam Height,Weight and Vital Signs: Height 4 ft 10.4 in Weight 38.964 kg Last Vital Signs Temp 97.0 F 05/19/24 10:04 Pulse 61 05/19/24 10:04 Resp 18 05/19/24 10:04 BP 132/71 05/19/24 10:04 Pulse Ox 98 05/19/24 10:04 O2 Del Method Room Air 05/19/24 10:04 Airway Mallampati Class: II TM Dist: >3cm Neck ROM: Full (H/o cervical disc surgery ) Partial: Upper Loose/Missing/Broken Teeth: Yes (Denies broken or loose teeth) Heart: RRR Lungs: CTAB Assessment and Plan Assessment Anesthesia Assessment: Anesthesia Plan Discussed and Chart Reviewed Final Anesthetic Review Family History of Problems with Anesthesia: No History of Problems with Anesthesia: Yes (PONV) NPO: Yes ASA Class: III Final Preanesthetic Review: No Changes in Pt Med Stat, Meds/Allgs Chart Reviewed, Consent Obtained/Reviewed and Anes Risks/Benef Reviewed Patient Risk: Intermediate Procedure Risk: Low Assessment/Block/Sedation in SS: Assess/Block/Sedation-SS Anesthetic Plan Anesthetic Plan: MAC: Disposition: Standard PACU
[2024-05-19] MEDS: Lactated Ringers 1,000 ML 50 ML IVCONT (10:22)
[2024-05-19] MEDS: Tropicamide 1 % Ophth Sol 3 ML BTL 1 DROP EYE-RIGHT ×3 (10:23→10:28)
[2024-05-19] MEDS: Tetracaine HCl/PF 0.5% Oph Sol 4 ML DROPS 1 DROP EYE-RIGHT (10:23)
[2024-05-19] MEDS: Phenylephrine HCL 2.5% Oph SoL 2 ML BOTTLE 1 DROP EYE-RIGHT ×3 (10:24→10:29)
[2024-05-19] MEDS: Ketorolac Tromethamine 0.5% Op 10 ML DROPS 1 DROP EYE-RIGHT ×3 (10:24→10:28)
[2024-05-19] MEDS: Cyclopentolate 1 % Ophth Sol 2 ML DRPBTL 1 DROP EYE-RIGHT ×3 (10:24→10:29)
--- NOTE | 2024-05-19 10:59 | P.PCNO_ITS ---
Ophthalmology Procedure Procedure Date of Service: 05/19/24 Ophthalmology Viscoelastic: Healon Duet Dual Pack Pro Ophthalmology Lenses: IOL Acrysof MP - MA60AC (22.5) Procedure Notes: PREOPERATIVE DIAGNOSIS: Decreased visual acuity right eye secondary to cataract POSTOPERATIVE DIAGNOSIS: Same PROCEDURE: Right cataract extraction with intraocular lens insertion SURGEON: Pardeep Vail M.D. ANESTHESIA: Topical/MAC ESTIMATED BLOOD LOSS: None COMPLICATIONS: None After obtaining informed consent, the patient was brought to the operating room suite and placed in the supine position. After adequate sedation per anesthesia, topical drops of Tetracaine were given to the right eye. The eye was then prepped and draped in the usual sterile fashion. The operating room microscope was then positioned over the operative eye and a lid speculum placed. A paracentesis was created. Viscoelastic was then instilled into the anterior chamber. A three plane incision was then created temporally, utilizing a 2.85 mm keratome. Capsulotomy forceps were then utilized to create a circular tear capsulotomy. Hydrodissection and hydrodelineation were carried out until adequate mobilization of the nucleus occurred. Phacoemulsification was then utilized to remove the dense central nu cleus followed by removal of the cortical material utilizing the automated aspiration irrigation unit. Viscoelastic was instilled into the posterior capsular bag followed by placement of a posterior chamber intraocular lens without difficulty. The residual Viscoelastic was then removed utilizing the automated IA machine. The wound was checked and found to be watertight. The patient tolerated the procedure well and the lid speculum was removed. Intracameral injection of Vigamox 0.1 mL followed by a subtenon injection of Kenalog-40 0.2 mL were administered. The patient will be seen in the a.m.
--- NOTE | 2024-05-19 10:59 | MHC.SHP ---
Pre-Procedural Eval Section A - 24 Hr Update-Section A only Date of Service: 05/19/24 The patient is an INPATIENT: No Changes since office visit: No Cold of Flu in the past 2 weeks, No New Medical Problems, No Changes in Medication and No Patient answered all questions The patient has been examined within 24 hours of the surgical procedure. The History & Physical has been completed within 30 days and I have reviewed it.: Yes Section B - Complete if H&P > 30 days Chief Complaint: Age-related nuclear cataract, right eye Allergies: Allergies Allergy/AdvReac Type Severity Reaction Status Date / Time Sulfa (Sulfonamide Allergy Severe Anaphylaxis Verified 05/19/24 10:02 Antibiotics) sulfamethoxazole Allergy Severe Anaphylaxis Verified 05/19/24 10:02 [From Bactrim] trimethoprim [From Bactrim] Allergy Severe Anaphylaxis Verified 05/19/24 10:02 codeine [CODEINE] Allergy Intermediate GI UPSET Verified 05/19/24 10:02 erythromycin base AdvReac Severe gi upset Verified 05/19/24 10:02 Plan Diagnosis/Plan: Unchanged I have reviewed the history and physical and performed a pertinent physical examination on my patient. No changes have occurred unless specified. Time Spent With Patient Time: Total time managing care of this patient today ____ minutes.
[2024-05-19 11:23] VITALS: BP 137/69; PULSE 61; RESP 14; TEMP 36.7; O2SAT 100
== END 2024-05-19 11:39 | disposition home or self-care (01) ==
PROVIDERS: PCP Internal Medicine; Visit Provider Ophthalmology
PROC: (CPT 66985; principal; 2024-05-19 10:50)
DX: H25.11 Age-related nuclear cataract, right eye (principal); H52.4 Presbyopia; Z83.511 Family history of glaucoma; H40.033 Anatomical narrow angle, bilateral; H18.413 Arcus senilis, bilateral; M54.81 Occipital neuralgia; J84.10 Pulmonary fibrosis, unspecified; C18.9 Malignant neoplasm of colon, unspecified; M81.0 Age-related osteoporosis without current pathological fracture; M19.90 Unspecified osteoarthritis, unspecified site; Z79.899 Other long term (current) drug therapy; Z88.2 Allergy status to sulfonamides; Z88.5 Allergy status to narcotic agent; Z87.891 Personal history of nicotine dependence
CPT/HCPCS: 66984; J2250; J2405; J3301; V2630

== ENCOUNTER 2024-07-01 08:23 | Outpatient (REF) | payer MEDICARE, SELFPAY ==
[2024-07-05 14:34] LABS: N-Telopeptide 35 (see note); NTXCreaRU 75 mg/dL (20-275)
== END 2024-07-01 08:24 | disposition home or self-care (01) ==
LOC: HO.10HDLNP 08:23
PROVIDERS: Visit Provider Internal Medicine Endocrinology, Diabetes & Metabolism
DX: M81.0 Age-related osteoporosis without current pathological fracture (principal)
CPT/HCPCS: 82523

== ENCOUNTER → 2024-07-15 10:40 | Outpatient (REF) | payer MEDICARE, SELFPAY ==
--- NOTE | 2024-07-15 10:44 | HM_ITS ---
* Total monitoring time 2 days. * Underlying rhythm is sinus with an average rate of 67/Min. * Rare supraventricular ectopy. * Rare ventricular ectopy. * No significant pauses or high-grade AV blocks. * No patient markers or diary events. MTDD
== END ==
LOC: HO.CARD 10:40
PROVIDERS: PCP Internal Medicine; Visit Provider Internal Medicine
DX: R00.2 Palpitations (principal)
CPT/HCPCS: 93225

== ENCOUNTER → 2024-07-15 10:44 | Outpatient (BNV) | payer MEDICARE, SELFPAY | PROVIDERS: PCP Internal Medicine; Visit Provider Internal Medicine | DX: I47.10 Supraventricular tachycardia, unspecified (principal) | CPT/HCPCS: 93227 ==

== ENCOUNTER 2024-08-07 11:25 | Outpatient (REF) | payer MEDICARE, SELFPAY ==
--- NOTE | ~2024-08-07 | MM_ITS ---
EXAMINATION: MM SCREENING DIGITAL BREAST TOMOSYNTHESIS, BILATERAL CLINICAL INFORMATION: Screening. Asymptomatic. COMPARISON: Mammography: Comparison is made with available priors TECHNIQUE: Digital breast mammography with tomosynthesis is performed in both the craniocaudal and mediolateral oblique views along with computer-aided detection (CAD). FINDINGS: The breasts are heterogeneously dense, which may obscure small masses (ACR BI-RADS breast composition Category c). There are no significant masses, abnormal calcifications, or other abnormalities. MM/MM tomosynthesis screening BI IMPRESSION: No mammographic evidence of malignancy. ASSESSMENT: BI-RADS BI-RADS 1 - Negative RECOMMENDATION: Routine annual mammography screening. 1 year F/U This examination should not preclude the clinical evaluation of a suspicious palpable abnormality. This patient's information was entered into a reminder system with a target due date for their next mammogram. Electronically signed by: Laurel Nguyễn DO 08/19/2024 05:49 PM EDT
== END 2024-08-07 11:26 | disposition home or self-care (01) ==
LOC: HO.MAMMO 11:25
PROVIDERS: PCP Internal Medicine; Visit Provider Internal Medicine
DX: Z12.31 Encounter for screening mammogram for malignant neoplasm of breast (principal)
CPT/HCPCS: 77063; 77067

== ENCOUNTER → 2024-08-07 11:45 | Outpatient (BNV) | payer MEDICARE, SELFPAY | PROVIDERS: PCP Internal Medicine; Visit Provider Internal Medicine | DX: Z12.31 Encounter for screening mammogram for malignant neoplasm of breast (principal) | CPT/HCPCS: 77063; 77067 ==

== ENCOUNTER 2024-08-21 11:28 | Outpatient (AMB) | payer MEDICARE, SELFPAY ==
[2024-08-21 11:30] VITALS: BP 110/50; PULSE 774; BMI 18.5
--- NOTE | 2024-08-21 11:30 | A.OFFVIS_ITS ---
Vital Signs 08/21/24 11:30 Height 4 ft 10 in Weight 88 lb 10.013 oz BMI 18.5 BP 110/50 L Blood Pressure Location Lt brachial Position Sitting Pulse 774 H Pulse Source Pulse Oximeter Intake Visit Reasons: Osteoporosis-conf Intake Note: Patient present today for Osteoporosis follow up visit. Hand Assembler For Puller Over Required: No Accompanied by: Self / Same As Patient Allergies Sulfa (Sulfonamide Antibiotics) Allergy (Severe, Verified 08/21/24 11:34) Anaphylaxis sulfamethoxazole [From Bactrim] Allergy (Severe, Verified 08/21/24 11:34) Anaphylaxis trimethoprim [From Bactrim] Allergy (Severe, Verified 08/21/24 11:34) Anaphylaxis codeine [CODEINE] Allergy (Intermediate, Verified 08/21/24 11:34) GI UPSET erythromycin base Adverse Reaction (Severe, Verified 08/21/24 11:34) gi upset HPI Comments Details: 79 YO Female with PMHx GERD and Osteoporosis who is seen in F/U for Os teoporosis. After her initial visit she completed a full biochemical assessment which revealed elevated urinary calcium, with a slightly high Vitamin D, but was otherwise WNL. She was asked to stop the Vitamin D and Calcium supplement and repeat levels, which did normalize. She was recommended for anabolic therapy for her Osteoporosis, but refused this. She was started on Prolia instead, and received her first dose 09/23/2020 and second dose 03/23/2021. She then had spinal surgery with an implant placed shortly before her 3rd dose was due, so dose was held to allow hardware integ ration. In early Dec 2021 she fell and suffered a fracture of her wrist. She was then started on IV Reclast, and received her first dose 06/05/2022. She is seen in F/U today. With regards to her history of Osteoporosis: First diagnosed in 2001. Received treatment in the past with Fosamax for approximately 7 years at the time of diagnosis. Stopped this in 2008, then started it again in 2017. In 2018 she was only able to tolerate this for 6 months as she developed severe GERD from it which resolved with cessation. No history of pathologic fracture or ONJ. Has 3-4 servings of dietary calcium per day in the form of milk and yogurt. Takes Calcium citrate 325 mg once a day. Takes 1000 IU of Vitamin D daily. Does use a PPI daily. Denies ever using anticoagulant, antiepileptic or glucocorticoid medication. Does weight bearing exercise days per week in the form of walking and gardening. Fracture history: Recent fracture of the R wrist. 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 Had 2 children. Did not breastfeed. Menopause was 46. Did not use HRT. History of Kidney stones: Denies Denies a family history of Osteoporosis or hip fracture. UTD on dental cleanings and sees dentist every 6 months. No planned upcoming dental work or extractions. DXA: 11/02/21 FINDINGS: AP SPINE L1-L4 (excluding L3): The data of L1-L4 has been changed to exclude the L3 vertebral body, because degenerative changes at this level may cause overestimation of lumbar spine density. Current: BMD 0.947 g/cm2, Z-score 0.6, T-score -1.9, osteopenia, 0.1% increase from previous, 5.3% decrease from baseline (<5% change is not significant). Prior: BMD 0.946 g/cm2. Baseline: BMD 1.000 g/cm2. LEFT FEMUR, NECK: Current: BMD 0.769 g/cm2, Z-score 0.6, T-score -1.9, osteopenia. Prior: BMD 0.697 g/cm2. Baseline: BMD 0.736 g/cm2. LEFT FEMUR, TOTAL: Current: BMD 0.760 g/cm2, Z-score 0.4, T-score -2.0, osteopenia, 8.9% increase from previous, 1.8% decrease from baseline (<5% change is not significant). Prior: BMD 0.698 g/cm2. Baseline: BMD 0.774 g/cm2. IDENTIFIED RISK FACTORS: Menopause, osteoporosis. HISTORY OF FRACTURE: None listed. MEDICATIONS: Calcium supplements or multivitamin, vitamin D, Prolia. Labs: Laboratory Tests 09/25/22 09/25/22 09/25/22 07:30 09:24 09:24 Sodium 138 Potassium 4.5 Creatinine 0.64 Estimated GFR > 60 Alk Phos Bone Specific 8.4 Albumin 3.8 N-Telopeptide X-linked 35 25-OH Vitamin D Total 58.0 PTH Intact 20 Calcium (PTH Intact) 9.0 Has received 2 doses of Reclast. Last DEXA showed low bone mass. Patient currently on calcium and vitamin-D supplementation . Bone turnover markers suppressed PFSH Medical History (Updated 05/26/24 @ 16:20 by Mckayla Wang MD) Cataract (lens) fragments in eye following cataract surgery, right eye Cataract (lens) fragments in eye following cataract surgery, left eye Myofascial pain Colon cancer Vasovagal near syncope Diarrhea GI (gastrointestinal bleed) Pulmonary fibrosis Glaucoma Vitamin D deficiency Hypercalciuria Osteoporosis Surgical History History of hemicolectomy S/P laparoscopic colectomy (12/05/23) S/P right colectomy Hx of appendectomy History of endoscopy History of surgery on wrist Hx of neck surgery Hx of adenoidectomy Hx of tonsillectomy Hx of colonoscopy Hx of hammer toe correction History of carpal tunnel surgery Family History Father Lung cancer Mother CVD (cardiovascular disease) Social History Household Members: Children Housing: House Alcohol intake: never Comment: COUNTS CORRECT Patient Tobacco Use Status: Former Tobacco user Years Smoked: 5 service: No Assessment & Plan Assessment & Plan (1) Osteoporosis: Code(s): M81.0 - Age-related osteoporosis without current pathological fracture Category: Medical Qualifiers: Osteoporosis type: unspecified Presence of current pathological fracture: unspecified Qualified Code(s): M81.0 - Age-related osteoporosis without current pathological fracture Plan: This 78-year-old white female with a history of osteoporosis who has been treate d in the past with oral bisphosphonates, Prolia and then intravenous Reclast for 2 doses. Recent DEXA showed low bone mass. Bone turnover markers suppressed Would continue calcium and vitamin-D supplementation. At this point, have patient follow up with primary care provider could recheck a DEXA bone density 10/2025. If bone density decreases in the osteoporotic range could either send patient back to endocrinology or primary care provider can arrange to give another dose of Reclast Coding Level of Care Code Est Pt Level 3 (75212) Diagnoses Osteoporosis, unspecified osteoporosis type, unspecified pathological fracture presence M81.0 Osteoporosis type: unspecified Presence of current pathological fracture: unspecified
== END 2024-08-21 11:57 | disposition home or self-care (01) ==
PROVIDERS: PCP Internal Medicine; Visit Provider Internal Medicine Endocrinology, Diabetes & Metabolism
DX: M81.0 Age-related osteoporosis without current pathological fracture (principal)
CPT/HCPCS: 99213

== ENCOUNTER → 2024-08-21 11:28 | Outpatient (BNVA) | payer MEDICARE, SELFPAY | PROVIDERS: PCP Internal Medicine; Visit Provider Internal Medicine Endocrinology, Diabetes & Metabolism | DX: M81.0 Age-related osteoporosis without current pathological fracture (principal); Z78.0 Asymptomatic menopausal state; Z79.620 Long term (current) use of immunosuppressive biologic | CPT/HCPCS: 99212 ==

== ENCOUNTER 2024-08-26 10:44 | Outpatient (REF) | payer MEDICARE, SELFPAY ==
[2024-08-26 10:48] LABS: MANUAL DIFF FLAG NO
[2024-08-26 11:41] LABS: Basophils Percent Auto 0.8 % (0-2); Eosinophils Absolute Auto 0.2 X10*3/uL (0.0-0.4); Eosinophils Percent Auto 3.1 % (0-4); Hematocrit 43.6 % (37.0-47.0); Hemoglobin 14.3 g/dl (12.0-16.0); Imm Gran Abs Auto 0.02 X10*3/uL (0.00-0.03); Imm Gran Pct Auto 0.4 % (0.0-0.4); Lymphocytes Percent Auto 37.9 % (20-40); Mean Corpuscular HGB Conc 32.8 g/dl (31.0-35.0); Mean Corpuscular Hemoglobin 30.4 pg (27.0-33.0); Mean Corpuscular Volume 92.6 fL (80.0-98.0); Mean Platelet Volume 11.6 fL (9.4-12.3); Monocytes Absolute Auto 0.5 X10*3/uL (0.1-1.2); Monocytes Percent Auto 10.3 % (2-11); Neutrophils Absolute Auto 2.5 x10*3/uL (2.0-8.3); Neutrophils Percent Auto 47.5 % (45-73); Platelet Count 252 X10*3/uL (160-400); Red Blood Count 4.71 X10*6/uL (4.20-5.50); White Blood Count 5.2 X10*3/uL (4.8-10.8)
[2024-08-26 11:46] LABS: Appearance Urine Clear; Color Urine Yellow; Glucose Urine UA Negative (Negative); Leukocyte Esterase Urine Large (3+) (Negative); Nitrite Urine Negative (Negative); PH 7.5 (5.0-9.0); Specific Gravity - Urine 1.015 (1.005-1.025); UMIC TRIGGER UACC YES; Urine Blood Negative (Negative); Urine Ketones Negative (Negative); Urine Protein Negative (Neg-Trace)
[2024-08-26 11:58] LABS: Alanine Aminotransferase 11 U/L (0-31); Albumin Level 3.7 g/dL (3.5-5.0); Alkaline Phosphatase 53 U/L (39-117); Anion Gap 10 (12-20); Aspartate Amino Transferase 19 U/L (5-31); Bilirubin Total 0.5 mg/dL (0.0-1.0); Blood Urea Nitrogen 17 mg/dL (9-16); Calcium 9.2 mg/dL (8.4-10.2); Carbon Dioxide 30 mmol/L (22-29); Chloride 103 mmol/L (96-108); Cholesterol 221 mg/dL (<200); Estimated Glomerular Filt Rate > 60; Glucose Fasting 83 mg/dL (60-99); HDL Cholesterol 74 mg/dL (>40); Iron 123 mcg/dL (30-160); LDL Cholesterol Calculated 135 mg/dL (<100); Percent Iron Saturation 43 % (15-50); Potassium 4.2 mmol/L (3.3-5.1); Sodium 139 mmol/L (135-145); Total Iron Binding Capacity 284 mcg/dL (228-428); Total Protein 7.1 g/dL (6.5-8.0); Triglycerides 60 mg/dL (<150); Unsaturated Iron Binding 161 ug/dL
[2024-08-26 12:08] LABS: Bacteria Urine None Seen (None Seen); Hyaline Casts Urine 0-2 /LPF (0-2); Other Crystals Urine Present; RBC Urine 0-2 /HPF (0-2); UACC Culture Trigger YES; WBC Urine 0-5 /HPF (0-5)
== END 2024-08-26 10:45 | disposition home or self-care (01) ==
LOC: HO.LNP 10:44
PROVIDERS: Visit Provider Internal Medicine
DX: E55.9 Vitamin D deficiency, unspecified (principal); E78.00 Pure hypercholesterolemia, unspecified; D50.9 Iron deficiency anemia, unspecified
CPT/HCPCS: 80053; 80061; 81001; 83540; 85025; 87086

== ENCOUNTER 2024-12-05 12:31 | Outpatient (REF) | payer MEDICARE, SELFPAY ==
--- NOTE | ~2024-12-05 | CT_ITS ---
CLINICAL HISTORY: Colon cancer, surveillance CT abdomen and pelvis with contrast Comparison: CT/GA/SR - CT ABDOMEN PELVIS WO IV CON - 12/03/23 09:02 EST Findings: There is interstitial scarring at the lung bases. No consolidation or pleural effusion. Multiple peripelvic cysts within the left kidney. Mild hydronephrosis of the bilateral kidneys. No ureteral calculus. Remaining abdominal organs are unremarkable. There are no calcified gallstones. Postsurgical change of the proximal colon. Severe fecal retention within the distal colon. No bowel edema or obstruction. A pessary is present. Unremarkable uterus. Poorly distended urinary bladder. Prior appendectomy. No acute fracture. IMPRESSION: 1. There is mild hydronephrosis of the bilateral kidneys. 2. Severe fecal retention within the distal colon. This document has been electronically signed by: Fabi Oliveira MD on 12/05/2024 15:23:40
[2024-12-05] MEDS: iohexoL 350 MG/ML 75 ML INFUS..BTL 85 ML IV (13:30)
--- OUTSIDE RECORDS SUMMARY | 2024-12-05 14:30 | XMS_ITS ---
Author Organization [facility] Address [address] [place] [phone] Care Team Providers Care Therapist Phys Name Role Phone Kendell Vaughn MD Primary Care Provider Jono Gamboa Unavailable [phone] REASON FOR VISIT ANEMIA Encounters Encounter Location Date Provider Diagnosis [facility] [address] [place] [phone] 02/13/2024 Jono Rojo PLAN OF TREATMENT Next Appt Details Provider Name:Jono Rojo , 03/16/2025 10:20:00 AM, [address] [place] [address] , [place], [place], [phone],
--- OUTSIDE RECORDS SUMMARY | 2024-12-05 14:30 | XMS_ITS ---
Author Organization Kendell Vaughn MD Address [address] [place] [phone] Care Team Providers Care High Speed Printer Operator Name Role Phone Kendell Vaughn Primary Care Provider [phone] REASON FOR VISIT BD orders for 11/05 Encounters Encounter Location Date Provider Diagnosis Kendell Vaughn MD [address] [place] [phone] 09/01/2024 Kendell Vaughn Osteoporosis M81.0 Assessments Encounter Date Diagnosis (ICD Code) Assessment Notes Treatment Notes Treatment Clinical Notes Section Notes 09/01/2024 Osteoporosis (ICD-10 - M81.0) Plan Of Treatment Future Test Test Name Order Date BONE DENSITY DEXA 09/01/2025 Next Appt Details Provider Name:Kendell Cadena ier, 03/05/2025 10:00:00 AM, [address], [address], [place], [phone], Provider Name:Kendell Cadena ier, 09/03/2025 07:15:00 AM, [address] [facility], [address], [place], [phone], Provider Name:Kendell Cadena ier, 09/10/2025 08:30:00 AM, [address], [address], [place], [phone], Progress Notes * Tiffanie MCNAMARA MDOB:12/1944 (79 yo F)Acc No.[id number]:09/01/2024 Patient:?Tiffanie Mcnamara :1945???Age:79 Y???Sex:Female Address:[address] [place] [phone] Subjective: * Chief Complaints: * ???BD orders for 11/05 * Medical History:? * Surgical History:? * Hospitalization/Major Diagno stic Procedure:? * Medications:? Objective: Assessment: * Assessment: 1.?Osteoporosis - M81.0? Plan: * Treatment: * Procedure Codes:? * true * Date:? Generated for Devorah da silva/Chapito/eTransmitting on:?12/05/2024 02:29 PM EST
--- OUTSIDE RECORDS SUMMARY | 2024-12-05 14:30 | XMS_ITS | Patient Health Record ---
Author Organization [facility] Address [address] [place] [address] Care Team Providers Care Technical Rep Name Role Phone Roderick GARCIA, Kendell Primary Care Provider Jono Gamboa Unavailable [phone] ALLERGIES Allergen (clinical drug ingredient) Drug/Non Drug Allergy documented on EMR Reaction Allergy Type Onset Date Status erythromycin Erythromycin Unknown Drug Allergy A ctive Codeine Phosphate Unknown Drug Allergy Active REASON FOR REFERRAL No Information MEDICATIONS Medication SIG (Take, Route, Frequency, Duration) Notes Start Date End Date Status Omeprazole 20 MG TAKE 1 CAPSULE EVERY MORNING. YOU MAY SWALLOW THE CAPSULE WITH SOME APPLESAUCE, for 90 Active Stool Softener 100 MG 1 tablet as needed Orally 2 daily Active MiraLax 17 GM/SCOOP 1 scoop mixed with 8 ounces of fluid Orally Once a day for 30 day(s) Active rOPINIRole HCl 0.5 MG Oral for 90 Not-Taking Prilosec 20 MG 1 Orally twice a day Not-Taking Cranberry Concentrate 500 MG as directed Orally 2 daily Active Estradiol Micronized 0.4 % as directed Transdermal Acti ve Calcium 500 MG 1 tablet with meals with vitamin d Orally Twice a day Active Ventolin HFA 108 (90 Base) MCG/ACT INHALE 2 PUFFS INTO THE LUNGS EVERY 4 HOURS NEEDED FOR 30 DAYS Inhalation for 30 prn Active Calcium Citrate-Vitamin D 315-5 MG-MCG TAKE 1 TABLET BY MOUTH EVERY DAY FOR 30 DAYS Oral for 90 Active Vitamin C 500 MG 1 tablet Orally Once a day for 30 day(s) Active D3-1000 25 MCG (1000 UT) TAKE 1 CAPSULE BY MOUTH DAILY Oral for 90 Active PARoxetine HCl 10 MG TAKE 1 TABLET BY MO UTH EVERY DAY IN THE MORNING Oral for 90 Active IMMUNIZATIONS Vaccine Route Administration Date Status Comme nts Influenza Unknown 08/12/2019 Administered Influenza Unknown 08/29/2022 Administered SOCIAL HISTORY Sex Assigned At : Social History Observation Description Sex Assigned At Unknown Alcohol Screen Question Answer Notes Did you have a drink contain ing alcohol in the past year? Yes How often did you have a dri nk containing alcohol in the past year? Monthly or less (1 point) How many drinks did you have on a typical day when you were drinking in the past year? 1 or 2 drinks (0 point) How often did you have 6 or more drinks on one occasion in the past year? Never (0 point) Points 1 Interpretation Negative PROBLEMS Problem Type ICD Code Onset Dates Problem Status W/U Status Risk SNOMED Code Notes Problem Iron deficiency anemia (D50.9) Active confirmed Iron deficien cy anemia (18921147) Problem Gastroesophageal reflux disease, esophagitis presence not specified (K21.9) Active confirmed 399119642 Problem Constipation, unspecified constipation type (K59.00) Active confirmed 45634159 Problem Personal history of colon cancer (Z85.038) Active confirmed History of malignant neoplasm of colon (799425673) Problem Chronic constipation (K59.09) Active confirmed Chronic constipation (405328471) Problem Esophageal dysphagia (R13.19) Active confirmed 12514996 Problem Primary adenocarcinoma of ascending colon (C18.2) Active confirmed Primary adenocarcinoma of ascending colon (512165569705473 ) VITAL SIGNS Blood pressure diastolic 00 mm Hg 11/25/2024 Height 58.25 in 11/25/2024 Blood pressure systolic 00 mm Hg 11/25/2024 Weight 91 lbs 11/25/2024 BMI 18.85 kg/m2 11/25/2024 Encounters Encounter Location Date Provider Diagnosis [facility] [address] [place] [phone] 02/13/2024 Jono Rojo [facility] [address] [place] [phone] 09/25/2024 Jono Rojo [facility] [address] [place] [phone] 11/25/2024 Jono Rojo Personal history of colon cancer Z85.038 and Chronic constipation K59.09 [facility] [address] [place] [phone] 12/25/2023 Jono Rojo [facility] [address] [place] [address] 01/28/2024 Jono Rojo ASSESSMENTS Encounter Date Diagnosis Assessment Notes Treatment Notes Treatment Clinical Notes 11/25/2024 Personal history of colon cancer (ICD-10 - Z85.038) 11/25/2024 Chronic constipation (ICD-10 - K59.09) Add Metamucil fiber gummies with water every day for the constipation. Continue the Miralax. PLAN OF TREATMENT Pending Test Test Name Order Date Esophageal Motility study 03/14/2023 Future Test Test Name Order Date COLONOSCOPY 08/06/2013 UPPER GI ENDOSCOPY 01/06/2020 COLONOSCOPY 11/25/2024 Next Appt Details Provider Name:Jono Rojo , 03/16/2025 10:20:00 AM, [address] [place] [address] , [place], [place], [id number], Insurance Providers Payer Name Payer Address Payer Phone Subscriber Number Group Number Insured Name Patient Relationship to Insured Coverage Start Date Coverage End Date MEDICARE OF [place] [address] [place] [address] [phone] [id number] KRIS WATT Self - patient is the insured [employer] CLAIMS [address] [place] [address] [id number] KRIS WATT Self - patient is the insured MEDICAL (GENERAL) HISTORY Medical History History ICD Code Denies UT,DM,CVA,renal disease Colonoscopy 11-17-2004--internal hemorrhoi ds; neg. flex sigs in the Osteoporosis/ osteopenia Pulmonary fibrosis--sees Dr. Trujillo Closed angle glaucoma Neg. colonoscopy in 09/2013 EGD in 04/2020--small HH, bx neg for eosinophilic esophagitis--there was no sign of esophagitis, Su's esophagus, nor any type of esophageal ring or stricture Esophageal motility study in 04/2023 showed some hypercontractility of the esophagus, but normal LES and 80% normal swallows Ascending colon adenocarcino ri 12/06/2023 pT3 N0-underwent surgery with Dr. Escobar and has been followed by Dr. Wang. She has not required any adjuvant chemotherapy Upper endoscopy in November did not reveal any sign of esophagitis nor esophageal stricture Surgical History Surgery Date(Month/Year) Carpal tunnel release Hammer toe C-spine disc fusion-Dr. Conteh 2020 Broken wrist 2020 cateracts surgery bilateral 05/05/2024-0 05/19/2025
--- OUTSIDE RECORDS SUMMARY | 2024-12-05 14:30 | XMS_ITS ---
Author Organization [facility] Address [address] [place] [address] Care Team Providers Care Chief Revenue Officer Name Role Phone Roderick GARCIA, Kendell Primary Care Provider Jono Gamboa Unavailable [phone] ALLERGIES Allergen (clinical drug ingredient) Drug/Non Drug Allergy documented on EMR Reaction Allergy Type Onset Date Status erythromycin Erythromycin Unknown Drug Allergy A ctive Codeine Phosphate Unknown Drug Allergy Active REASON FOR VISIT patient presents today for colon cancer MEDICATIONS Medication SIG (Take, Route, Frequency, Duration) Notes Start Date End Date Status Vitamin C 500 MG 1 tablet Orally Once a day for 30 day(s) Active Stool Softener 100 MG 1 tablet as needed Orally 2 daily Active MiraLax 17 GM/SCOOP 1 scoop mixed with 8 ounces of fluid Orally Once a day for 30 day(s) Active Prilosec 20 MG 1 Orally twice a day Not-Taking Cranberry Concentrate 500 MG as directed Orally 2 daily Active D3-1000 25 MCG (1000 UT) TAKE 1 CAPSULE BY MOUTH DAILY Oral for 90 Active rOPINIRole HCl 0.5 MG Oral for 90 Not-Taking Omeprazole 20 MG TAKE 1 CAPSULE EVERY MORNING. YOU MAY SWALLOW THE CAPSULE WITH SOME APPLESAUCE, for 90 Active PARoxetine HCl 10 MG TAKE 1 TABLET BY MO UTH EVERY DAY IN THE MORNING Oral for 90 Active Estradiol Micronized 0.4 % as directed Transdermal Acti ve Ventolin HFA 108 (90 Base) MCG/ACT INHALE 2 PUFFS INTO THE LUNGS EVERY 4 HOURS NEEDED FOR 30 DAYS Inhalation for 30 prn Active Calcium Citrate-Vitamin D 315-5 MG-MCG TAKE 1 TABLET BY MOUTH EVERY DAY FOR 30 DAYS Oral for 90 Active Calcium 500 MG 1 tablet with meals with vitamin d Orally Twice a day Active SOCIAL HISTORY Sex Assigned At : Social [...] W/U Status Risk SNOMED Code Notes Problem Personal history of colon cancer (Z85.038) Active confirmed History of malignant neoplasm of colon (039101159) Problem Chronic constipation (K59.09) Active confirmed Chronic constipation (095542015) VITAL SIGNS BMI 18.85 kg/m2 11/25/2024 Blood pressure systolic 00 mm Hg 11/25/19 25 Blood pressure diastolic 00 mm Hg 025 Height 58.25 in 11/25/2024 Weight 91 lbs 11/25/2024 Encounters Encounter Location Date Provider Diagnosis [facility] [address] [place] [phone] 11/25/2024 Jono Rojo Personal history of colon cancer Z85.038 and Chronic constipation K59.09 ASSESSMENTS Encounter Date Diagnosis Assessment Notes Treatment Notes Treatment Clinical Notes 11/25/2024 Personal history of colon cancer (ICD-10 - Z85.038) 11/25/2024 Chronic constipation (ICD-10 - K59.09) Add Metamucil fiber gummies with water every day for the constipation. Continue the Miralax. PLAN OF TREATMENT Treatment Notes Assessment Notes Chronic constipation Add Metamucil fiber gummies with water every day for the constipation. Continue the Miralax. Future Test Test Name Order Date COLONOSCOPY 11/25/2024 Next Appt Details Provider Name:Jono Breanna Darrel , 03/16/2025 10:20:00 AM, [address] [place] [address] , [place], [place], [phone], Progress Notes * Examination Category Sub-Category Detail Notes General Examination GENERAL APPEARANCE: pleasant , well nourished, well developed, in no acute distress EYES: sclera non-icteric NECK/THYROID: no cervical lymphade nopathy, neck supple HEART: S1, S2 normal LUNGS: clear to auscultatio n bilaterally ABDOMEN: normal bowel sounds, no guarding or rigidity, no hepatosplenomegaly, no masses palpable, soft, nontender, nondistended. NEUROLOGIC: alert and oriented SKIN: nonjaundiced, no spi wilman angiomata. EXTREMITIES: no edema ORAL CAVITY: mucosa moist
--- OUTSIDE RECORDS SUMMARY | 2024-12-05 14:30 | XMS_ITS ---
Author Organization Kendell Vaughn MD Address [address] [place] [phone] Care Team Providers Care [facility] Justice Name Role Phone Kendell Vaughn Primary Care Provider Allergies Allergen (clinical drug ingredient) Drug/Non Drug Allergy documented on EMR Reaction Allergy Type Onset Date Status codeine Codeine Sulfate gi upset Drug Allergy A ctive sulfamethoxazole / trimethoprim Bactrim DS heart palpitations Drug Allergy Active erythromycin erythromycin (uncoded) gi upset Allergy Active REASON FOR VISIT review labs Medications Medication SIG (Take, Route, Frequency, Duration) Notes Start Date End Date Status tiZANidine HCl 2 MG 1 tablet as needed Orally Three times a day Not-Rustam ing Methenamine Hippurate 1 GM 1 tablet Orally Twice a day for 10 day(s) Not-Taking PriLOSEC OTC 20 MG 2 tablet 30 minutes before morning meal Orally Once a day Not-Taking Ibuprofen 800 MG 1 TABLET ORALLY THRE E TIMES A DAY for 30 Not-Taking Ativan 0.5 MG 1 tablet as needed Orally Twice a day 06/15/2015 Not-Taking Cranberry 405 MG 1 capsule with meals Orally Twice a day Active PARoxetine HCl 10 MG TAKE 1 TABLET BY [facility] EVERY DAY IN THE MORNING for 90 Active Omeprazole 20 MG 1 capsule 30 minutes before morning meal Orally Once a day Active Vitamin D (Cholecalciferol) 25 MCG (1000 UT) 1 capsule Orally Once a day Active Stool Softener 100 MG 1 tablet as needed Orally three times a day Active Vitamin C 500 MG as directed Orally Active Calcium 600 MG 1 tablet with meals Orally once a day Active Estradiol 0.1 MG/GM 1 application Vagina l Two times a Week Active Albuterol Sulfate HFA 108 (90 Base) MCG/ACT 2 puff as needed Inhalation every 4 hrs 02/16/2023 Active Social History Tobacco Use: Social History Observation Description Date Details (start date - stop date) Former Smoker NA - NA Tobacco Use/Smoking Question Answer Notes Patient is a former smoker How long has it been since y ou last smoked? > 10 years Additional Findings: Tobacco Non-User Fo rmer smoker, currently using no form of tobacco Alcohol Screen Question Answer Notes Did you [...] Never (0 point) Points 1 Interpretation Negative Vital Signs Blood pressure systolic 122 mm Hg 09/05/20 24 Blood pressure diastolic 60 mm Hg 024 Height 59.5 in 09/05/2024 Weight 90 lbs 09/05/2024 BMI 17.87 kg/m2 09/05/2024 Encounters Encounter Location Date Provider Diagnosis Kendell Vaughn MD [address] [place] [address] [address] [place], [place] [phone] 09/05/2024 Kendell Vaughn Osteoporosis M81.0 ; Pure hypercholesterolemia E78.00 ; Vitamin D deficiency E55.9 ; Reflux esophagitis K21.00 and Depression screening Z13.31 Assessments Encounter Date Diagnosis (ICD Code) Assessment Notes Treatment Notes Treatment Clinical Notes Section Notes 09/05/2024 Osteoporosis (ICD-10 - M81.0) 09/05/2024 Pure hypercholesterolemia (ICD-10 - E78.00) 09/05/2024 Vitamin D deficiency (ICD-10 - E55.9) 09/05/2024 Reflux esophagitis (ICD-10 - K21.00) 09/05/2024 Depression screening (ICD-10 - Z13.31) negative screen Plan Of Treatment Medication Medication Name Sig Start Date Stop Date Notes Omeprazole 20 MG 1 capsule 30 minutes before morning meal Orally Once a day Vitamin D (Cholecalciferol) 25 MCG (1000 UT) 1 capsule Orally Once a day Calcium 600 MG 1 tablet with meals Orally once a day Estradiol 0.1 MG/GM 1 application Vagina l Two times a Week Treatment Notes Assessment Notes Depression screening negative screen Next Appt Details Follow Up: 6 Months, Reason: Provider Name:Kendell rodriguez, 03/05/2025 10:00:00 AM, [address] [place] [address], [phone], Provider Name:Kendell rodriguez, 09/03/2025 07:15:00 AM, [address] [place] [address], [phone], Provider Name:Kendell rodriguez, 09/10/2025 08:30:00 AM, [address] [place] [address], [phone], Progress Notes * Tiffanie MCNAMARA MDOB:12/1944 (79 yo F)Acc No.[id number]:09/05/2024 Patient:?Tiffanie Mcnamara Provider:?Kendell Vaughn MD :1945???Age:79 Y???Sex:Female D ate:09/05/2024 Address:[address] [place] [id number] Subjective: * Chief Complaints: * ???Review labs * HPI: ???Depression Screening:?PHQ-9?Little interest or pleasure in doing things?Not at all,?Feeling down, depressed, or hopeless?Not at all,?Trouble falling or staying asleep, or sleeping too much?Not at all,?Feeling tired or having little energy?Not at all,?Poor appetite or overeating?Not at all,?Feeling bad about yourself or that you are a failure, or have let yourself or your family down?Not at all,?Trouble concentrating on things, such as reading the newspaper or watching television?Not at all,?Moving or speaking so slowly that other people could have noticed; or the opposite, being so fidgety or restless that you have been moving around a lot more than usual?Not at all,?Thoughts that you would be better off or of hurting yourself in some way?Not at all,?Total Score?0.?Interpretation and Intervention?Depression Screening Findings?Negative,?Follow-Up for Depression?: review of PHQ-9 found negative result, no follow-up needed.?Communication Needs:?Communication Needs?Does the patient have a hearing impairment?No,?Does the patient have a vision impairment??Yes,?If yes, what is the vision impairment??Glasses,?Does the patient have a cognition impairment??No.?Fall Risk:?History?Have you had any falls with injury in the past year??No,?Have you had two or more falls in the past year??No.?SDOH Questions:?SDOH Questions?In the past year have you been worried about losing housing??No,?In the past year have you or any family members you live with been unable to get any of the following when it was really needed? Check all that apply:?None.?Symptom(s):? patient is a 79 yo female here for review of recent labs and follow up of chronic issues. * ROS:?General/Constitutional:?Patient denies?fatigue , headache.?Change in appetite?denies.?Chills?denies.?Fever?denies.?Ophthalmologic:?Blurred vision?denies.?Discharge?denies.?Pain?denies.?ENT:?Patient denies?decreased sense of smell , any loss of taste , sore throat.?Decreased hearing?denies.?Sore throat?denies.?Swollen glands?denies.?Endocrine:?Cold intolerance?denies.?Excessive thirst?denies.?Heat intolerance?denies.?Weight loss?denies.?Respiratory:?Cough?denies.?Shortness of breath at rest?denies.?Shortness of breath with exertion?denies.?Wheezing?denies.?Cardiovascular:?Chest pain at rest?denies.?Chest pain with exertion?denies.?Irregular heartbeat?denies.?Shortness of breath?denies.?Gastrointestinal:?Patient complaining of?some crampimg in abdomen.?Abdominal pain?denies.?Change in bowel habits?denies.?Diarrhea?denies.?Nausea?denies.?Rectal bleeding?denies.?Vomiting?denies .?Genitourinary:?Blood in urine?denies.?Difficulty urinating?denies.?Frequent urination?denies.?Urinary incontinence?Denies.?Musculoskeletal:?Patient denies?muscle aches.?Painful joints?denies.?Weakness?denies.?Peripheral Vascular:?Patient denies?red and blue toes.?Skin:?Dry skin?denies.?Itching?denies.?Denies?Mole(s),? changes in moles, new moles or any lesions of concern.?Denies?Photosensitivity.?Rash?denies.?Neurologic:?Dizziness?denies.?Fainting?denies.?Headache?denies.? * Medical History:? * Surgical History:? * Hospitalization/Major Diagno stic Procedure:? * Family History:?Father: dece ased 65 yrs, diagnosed with Cancer.?Mother: 89 yrs.?2 son(s) . .? Mother-Angina, Denies mental health/substance abuse family history, Denies mental health/substance abuse family history, No pertinent family medical history, No pertinent family medical history. * Social History:?Tobacco Use:?Tobacco Use/Smoking?Patient is a?former smoker,?How long has it been since you last smoked??> 10 years,?Additional Findings: Tobacco Non-User?Former smoker, currently using no form of tobacco.?Drugs/Alcohol:?Alcohol Screen?Did you have a drink containing alcohol in the past year??Yes,?How often did you have a drink containing alcohol in the past year??Monthly or less (1 point),?How many drinks did you have on a typical day when you were drinking in the past year??1 or 2 drinks (0 point),?How often did you have 6 or more drinks on one occasion in the past year??Never (0 point),?Points?1,?Interpretation?Negative.?Miscellaneous:?Caffeine: yes, frequency:, 1-2 cups per day. Children: yes. Community involvements: yes. Exercise: yes, walks 2 miles everyday. Housing: owning,. Living with: son. Marital status: . Occupation: unemployed/ retired. Pets: none. no Travel outside of the [place]. * Medications:?TakingVitamin C 500 MG Capsule as directed Orally Omeprazole 20 MG Capsule Delayed Release 1 capsule 30 minutes before morning meal Orally Once a dayCalcium 600 MG Tablet 1 tablet with meals Orally once a dayEstradiol 0.1 MG/GM Cream 1 application Vaginal Two times a WeekAlbuterol Sulfate HFA 108 (90 Base) MCG/ACT Aerosol Solution 2 puff as needed Inhalation every 4 hrsVitamin D (Cholecalciferol) 25 MCG (1000 UT) Capsule 1 capsule Orally Once a dayStool Softener 100 MG Tablet 1 tablet as needed Orally three times a dayCranberry 405 MG Capsule 1 capsule with meals Orally Twice a dayPARoxetine HCl 10 MG Tablet TAKE 1 TABLET BY MOUTH EVERY DAY IN THE MORNING Taking Vitamin C 500 MG Capsule as directed Orally Taking Omeprazole 20 MG Capsule Delayed Release 1 capsule 30 minutes before morning meal Orally Once a dayTaking Calcium 600 MG Tablet 1 tablet with meals Orally once a dayTaking Estradiol 0.1 MG/GM Cream 1 application Vaginal Two times a WeekTaking Albuterol Sulfate HFA 108 (90 Base) MCG/ACT Aerosol Solution 2 puff as needed Inhalation every 4 hrsTaking Vitamin D (Cholecalciferol) 25 MCG (1000 UT) Capsule 1 capsule Orally Once a dayTaking Stool Softener 100 MG Tablet 1 tablet as needed Orally three times a dayTaking Cranberry 405 MG Capsule 1 capsule with meals Orally Twice a dayTaking PARoxetine HCl 10 MG Tablet TAKE 1 TABLET BY MOUTH EVERY DAY IN THE MORNING Not-Taking/PRNPriLOSEC OTC 20 MG Tablet Delayed Release 2 tablet 30 minutes before morning meal Orally Once a dayIbuprofen 800 MG Tablet 1 TABLET ORALLY THREE TIMES A DAY tiZANidine HCl 2 MG Tablet 1 tablet as needed Orally Three times a dayMethenamine Hippurate 1 GM Tablet 1 tablet Orally Twice a dayAtivan 0.5 MG Tablet 1 tablet as needed Orally Twice a dayMedication List reviewed and reconciled with the patientNot-Taking/PRN PriLOSEC OTC 20 MG Tablet Delayed Release 2 tablet 30 minutes before morning meal Orally Once a dayNot-Taking/PRN Ibuprofen 800 MG Tablet 1 TABLET ORALLY THREE TIMES A DAY Not-Taking/PRN tiZANidine HCl 2 MG Tablet 1 tablet as needed Orally Three times a dayNot-Taking/PRN Methenamine Hippurate 1 GM Tablet 1 tablet Orally Twice a dayNot-Taking/PRN Ativan 0.5 MG Tablet 1 tablet as needed Orally Twice a dayMedication List reviewed and reconciled with the patient * Allergies:?erythromycin: gi upsetCodeine Sulfate: gi upsetBactrim DS: heart palpitationsyes[Allergies Verified] Objective: * Vitals:?Ht: 59.5, Wt:90, BMI :17.87, BP:122/60. * ???Past Orders: ???Lab:Urine Culture (Order Date - 08/26/2024) (Collection Date - 08/26/2024) ? Value Reference Range ?Urine Culture < 10,000 cfu/ml - ???Lab:Complete Blood Count Auto Diff (Order Date - 08/26/2024) (Collection Date - 08/26/2024) ? Value Reference Range ?White Blood Count 5.2 4. 8-10.8 - X10*3/uL ?Red Blood Count 4.71 4.20 -5.50 - X10*6/uL ?Hemoglobin 14.3 12.0-16.0 - g/dl ?Hematocrit 43.6 37.0-47.0 - % ?Mean Corpuscular Volume 92.6 80.0-98.0 - fL ?Mean Corpuscular Hemoglobin 30.4 27.0-33.0 - pg ?Mean Corpuscular HGB Conc 32.8 31.0-35.0 - g/dl ?Red Cell Distributio n Width 13.0 11.0-16.0 - % ?Platelet Count 252 160-4 00 - X10*3/uL ?Mean Platelet Volume 11.6 9.4-12.3 - fL ?Neutrophils Percent Auto 47.5 45-73 - % ?Imm Gran Pct Auto 0.4 0. 0-0.4 - % ?Lymphocytes Percent Auto 37.9 20-40 - % ?Monocytes Percent Auto 10.3 2-11 - % ?Eosinophils Percent Auto 3.1 0-4 - % ?Basophils Percent Auto 0.8 0-2 - % ?NRBC Pct Auto 0.0 0.0-0. 2 - /100WBC ?Neutrophils Absolute Auto 2.5 2.0-8.3 - x10*3/uL ?Imm Gran Abs Auto 0.02 0. 00-0.03 - X10*3/uL ?Lymphocytes Absolute Auto 2.0 1.2-4.9 - X10*3/uL ?Monocytes Absolute Auto 0.5 0.1-1.2 - X10*3/uL ?Eosinophils Absolute Auto 0.2 0.0-0.4 - X10*3/uL ?Basophils Absolute Auto 0.0 0.0-0.2 - X10*3/uL ?NRBC Abs Auto 0.000 0.0-0. 012 - X10*3/uL ???Lab:IRON PROFILE (Order D ate - 08/26/2024) (Collection Date - 08/26/2024) ? Value Reference Range ?Iron 123 30-160 - mcg/dL ?Total Iron Binding Capacity 284 228-428 - mcg/dL ?Percent Iron Saturation 43 15-50 - % ?Unsaturated Iron Binding 161 - ug/dL ???Lab:Comprehensive [facility] Fast (Order Date - 08/26/2024) (Collection Date - 08/26/2024) ? Value Reference Range ?Sodium 139 135-145 - mmo l/L ?Bilirubin Total 0.5 0.0- 1.0 - mg/dL ?Aspartate Amino Transferase 19 5-31 - U/L ?Alanine Aminotransferase 11 0-31 - U/L ?Total Protein 7.1 6.5-8. 0 - g/dL ?Albumin Level 3.7 3.5-5. 0 - g/dL ?Alkaline Phosphatase 53 39-117 - U/L ?Potassium 4.2 3.3-5.1 - mmol/L ?Chloride 103 96-108 - mm ol/L ?Carbon Dioxide 30 H 22-29 - mmol/L ?Anion Gap 10 L 12-20 - ?Blood Urea Nitrogen 17 H 9-16 - mg/dL ?Creatinine 0.69 0.5-1.4 - mg/dL ?Estimated Glomerular Filt Rate > 60 - ?Glucose Fasting 83 60-9 9 - mg/dL ?Calcium 9.2 8.4-10.2 - m g/dL ???Lab:Lipid Panel (Order Da te - 08/26/2024) (Collection Date - 08/26/2024) ? Value Reference Range ?Triglycerides 60 <150 - mg/dL ?Cholesterol 221 H <200 - m g/dL ?LDL Cholesterol Calculated 135 H <100 - mg/dL ?HDL Cholesterol 74 >40 - mg/dL ???Lab:UA ClnCatch+Micro w/r flx Cult (Order Date - 08/26/2024) (Collection Date - 08/26/2024) ? Value Reference Range ?Color Urine Yellow - ?Appearance Urine Clear - ?PH 7.5 5.0-9.0 - ?Glucose Urine UA Negative Neg ative - mg/dL ?Urine Blood Negative Negative - ?Specific [place] - Urine 1.015 1.005-1.025 - ?Urine Protein Negative Neg-Tr nuvia - mg/dL ?Urine Ketones Negative Negati ve - mg/dL ?Nitrite Urine Negative Negati ve - ?Leukocyte Esterase Urine Large (3+) A Negative - ?RBC Urine 0-2 0-2 - /HPF ?WBC Urine 0-5 0-5 - /HPF ?Squamous Epithelial Cell Urine 6-10 0-2 - /HPF ?Bacteria Urine None Seen None Seen - ?Hyaline Casts Urine 0-2 0-2 - /LPF ?Other Crystals Urine Present - * Examination: ???General Examination: ?GENERAL APPEARANCE:?well developed, well nourished, in no acute distress.?HEAD:?normocephalic, atraumatic.?EYES:?pupils equal, round, reactive to light and accommodation, sclera non-icteric.?EARS:?normal.?ORAL CAVITY:?mucosa moist.?THROAT:?clear.?NECK/THYROID:?neck supple, full range of motion, no cervical lymphadenopathy, no bruits.?SKIN:?warm and dry, no suspicious lesions.?HEART:?regular rate and rhythm, S1, S2 normal, no murmurs.?LUNGS:?clear to auscultation bilaterally.?BREASTS:?no masses palpable bilaterally.?ABDOMEN:?soft, nontender, nondistended, bowel sounds present, normal, no organomegaly , no masses palpable.?RECTAL EXAM:?done by scrap piler.?FEMALE GENITOURINARY:?done by scrap piler.?EXTREMITIES:?no clubbing, cyanosis, or edema.?NEUROLOGIC:?nonfocal, motor strength normal upper and lower extremities, sensory exam intact.? Assessment: * Assessment: 1.?Osteoporosis - M81.0 (Lisandra alka)?2.?Pure hypercholesterolemia - E78.00?3.?Vitamin D deficiency - E55.9?4.?Reflux esophagitis - K21.00?5.?Depression screening - Z13.31? Plan: * Treatment: 2.?Vitamin D deficiency? Continue Vitamin D (Cholecalciferol) Capsule, 25 MCG (1000 UT), 1 capsule, Orally, Once a day.?? 3.?Reflux esophagitis? Continue Omeprazole Capsule Delayed Release, 20 MG, 1 capsule 30 minutes before morning meal, Orally, Once a day.?? 4.?Depression screening? Notes: negative screen?? * Procedure Codes:? * Follow Up:?6 Months * * Sign off status: Completed true * Provider:?Kendell Vaughn MD Date:?1 Generated for Devorah da silva/Chapito/Erick on:?12/05/2024 02:30 PM EST History and Physical Notes * HPI (History of Present Illness) Category Sub-Category Detail Notes Category Not es Symptom(s) patient is a 79 yo female here for review of recent labs and follow up of chronic issues. Depression Screening PHQ-9 Little inte rest or pleasure in doing things: Not at all Feeling down, depressed, or hopeless: No t at all Trouble falling or staying asleep, or sl eeping too much: Not at all Feeling tired or having little energy: N ot at all Poor appetite or overeating: Not at all Feeling bad about yourself o r that you are a failure, or have let yourself or your family down: Not at all Trouble concentrating on thi ngs, such as reading the newspaper or watching television: Not at all Moving or speaking so slowly that other people could have noticed; or the opposite, being so fidgety or restless that you have been moving around a lot more than usual: Not at all Thoughts that you would be b k[place] off or of hurting yourself in some way: Not at all Total Score: 0 Interpretation and Intervention Depression Mona patel Findings: Negative Follow-Up for Depression: : review of PH Q-9 found negative result, no follow-up needed SDOH Questions SDOH Questions In the past year have you been worried about losing housing?: No In the past year have you or any family members you live with been unable to get any of the following when it was really needed? Check all that apply:: None Fall Risk History Have you had any falls with injury i n the past year?: No Have you had two or more falls in the st year?: No Communication Needs Communication Needs Does the patient have a hearing impairment: No Does the patient have a vision impairmen t?: Yes ?If yes, what is the vision impairment?: Glasses Does the patient have a cognition impair ment?: No Examination Category Sub-Category Detail Notes Category Not es General Examination GENERAL APPEARANCE: well dev eloped, well nourished, in no acute distress HEAD: normocephalic, atrau matic EYES: pupils equal, round, reactive to light and accommodation, sclera non- icteric EARS: normal THROAT: clear NECK/THYROID: neck supple, full ra nge of motion, no cervical lymphadenopathy, no bruits HEART: regular rate and rhy thm, S1, S2 normal, no murmurs LUNGS: clear to auscultatio n bilaterally ABDOMEN: soft, nontender, non distended, bowel sounds present, normal, no organomegaly , no masses palpable NEUROLOGIC: nonfocal, motor stre ngth normal upper and lower extremities, sensory exam intact SKIN: warm and dry, no abhishek picious lesions EXTREMITIES: no clubbing, cyanosi s, or edema BREASTS: no masses palpable b ilaterally RECTAL EXAM: done by scrap piler FEMALE GENITOURINARY: done by scrap piler ORAL CAVITY: mucosa moist
--- OUTSIDE RECORDS SUMMARY | 2024-12-05 14:31 | XMS_ITS | Clinical Summary ---
Author Organization [facility] Address [address] [place] [address] Care Team Providers Care Respiratory Manager Name Role Phone Kendell Vaughn MD Primary Care Provider [phone] Social History Tobacco Use Types Packs/Day Years Used Date Smoking Tobacco: Never Assessed Sex and Gender Information Value Date Recorded Sex Assigned at Not on file Gender Identity Not on file Sexual Orientation Not on file Job Start Date Occupation Industry Not on file Not on file Not on file Plan of Treatment Health Maintenance Due Date Last Done Comments COVID-19 Vaccine (#1) 02/12/1946 Depression Screening 1955 Preventative Health Evaluation 1961 DTap / Tdap / Td (1 - Tdap) 1962 Shingrix-Zoster Vaccine (1 of 2) 1993 Fall Risk Assessment 2008 Osteoporosis Screening (DEXA Scan) 2008 Pneumococcal Vaccine (1 of 1 - PCV) 2008 RSV Adult > 60+ Yrs or Pregn ant (1 - 1-dose 75+ series) 2018 Influenza Vaccine (#1) 2024 Hepatitis B Vaccines Aged Out No long er eligible based on patient's age to complete this topic RSV Ped < 20 months Aged Out No longe r eligible based on patient's age to complete this topic Care Teams Respiratory Manager Relationship Specialty Start Date End Date Kendell Vaughn MD [address] [place] [id number] PCP - General Internal Medicine 04/26/21
--- OUTSIDE RECORDS SUMMARY | 2024-12-05 14:31 | XMS_ITS ---
Author Organization Kendell Vaughn MD Address [address] [place] [phone] Care Team Providers Care Control Panel Assembler Name Role Phone Kenedll Vaughn Primary Care Provider Results Component Value Reference Range Notes Complete Blood Count Auto Di ff Reviewed date:08/27/2024 06:47:49 PM Interpretation: Performing Lab:[facility], [address] [place] [phone] Notes/Report: White Blood Count 5.2 4.8-10.8 X10*3/uL Red Blood Count 4.71 4.20-5.50 X10*6/uL Hemoglobin 14.3 12.0-16.0 g/dl Hematocrit 43.6 37.0-47.0 % Mean Corpuscular Volume 92.6 80.0-98.0 fL Mean Corpuscular Hemoglobin 30.4 27.0-33.0 pg Mean Corpuscular HGB Conc 32.8 31.0-35.0 g/dl Red Cell Distribution Width 13.0 11.0-16.0 % Platelet Count 252 160-400 X10*3/uL Mean Platelet Volume 11.6 9.4-12.3 fL Neutrophils Percent Auto 47.5 45-73 % Imm Gran Pct Auto 0.4 0.0-0.4 % Lymphocytes Percent Auto 37.9 20-40 % Monocytes Percent Auto 10.3 2-11 % Eosinophils Percent Auto 3.1 0-4 % Basophils Percent Auto 0.8 0-2 % NRBC Pct Auto 0.0 0.0-0.2 /100WBC Neutrophils Absolute Auto 2.5 2.0-8.3 x10*3/u L Imm Gran Abs Auto 0.02 0.00-0.03 X10*3/uL Lymphocytes Absolute Auto 2.0 1.2-4.9 X10*3/u L Monocytes Absolute Auto 0.5 0.1-1.2 X10*3/uL Eosinophils Absolute Auto 0.2 0.0-0.4 X10*3/u L Basophils Absolute Auto 0.0 0.0-0.2 X10*3/uL NRBC Abs Auto 0.000 0.0-0.012 X10*3/uL Comprehensive [place]. Panel Fa st Reviewed date:08/28/2024 09:26:45 PM Interpretation: Performing Lab:[facility], [address] [place] [phone] Notes/Report: Sodium 139 135-145 mmol/L Potassium 4.2 3.3-5.1 mmol/L Chloride 103 96-108 mmol/L Carbon Dioxide 30 22-29 mmol/L Anion Gap 10 12-20 Blood Urea Nitrogen 17 9-16 mg/dL Creatinine 0.69 0.5-1.4 mg/dL Estimated Glomerular Filt Rate > 60 NOTE: For -[place]iv[place] individuals, multiply the result by 1.210. Chronic Kidney Disease: Estimated GFR < 60 mL/min/1.73m2 Severe Kidney Disease: Estimated GFR < 15 mL/min/1.73m2 Glucose Fasting 83 60-99 mg/dL Calcium 9.2 8.4-10.2 mg/dL Bilirubin Total 0.5 0.0-1.0 mg/dL Aspartate Amino Transferase 19 5-31 U/L Alanine Aminotransferase 11 0-31 U/L Total Protein 7.1 6.5-8.0 g/dL Albumin Level 3.7 3.5-5.0 g/dL Alkaline Phosphatase 53 39-117 U/L IRON PROFILE Reviewed date:08/27/2024 06:41:00 PM Interpretation: Performing Lab:[facility], [address] [place] [phone] Notes/Report: Iron 123 30-160 mcg/dL Total Iron Binding Capacity 284 228-428 mcg/d L Percent Iron Saturation 43 15-50 % Unsaturated Iron Binding 161 Lipid Panel Reviewed date:08/27/2024 06:41:40 PM Interpretation: Performing Lab:[facility], [address] [place] [phone] Notes/Report: Triglycerides 60 <150 mg/dL Desirable Triglyceride: less than 150 mg/dL Borderline High Triglyceride 150-199 mg/dL High Triglyceride: 200-499 mg/dL Very High Triglyceride: greater than or equal to 5OO mg/dL Cholesterol 221 <200 mg/dL Desirable Cholesterol: less than 200 mg/dL Borderline High Cholesterol: 200-239 mg/dL High Cholesterol: greater than 239 mg/dL LDL Cholesterol Calculated 135 <100 mg/dL Desirable LDL: less than 100 mg/dL Near Optimal/Above Optimal LDL: 110-129 mg/dL Borderline High LDL: 130-159 mg/dL High LDL: 160-189 mg/dL Very High LDL: greater than or equal to 190 mg/dL HDL Cholesterol 74 >40 mg/dL Desirable HDL: greater than 40 mg/dL Note: This HDL assay may give artificially low results in patients with liver disease. UA ClnCatch+Micro w/rflx Cul t Reviewed date:08/28/2024 09:35:22 PM Interpretation: Performing Lab:[facility], [address] [place] [phone] Notes/Report: Urine, Clean Catch Color Urine Yellow Appearance Urine Clear PH 7.5 5.0-9.0 Glucose Urine UA Negative Negative mg/dL Urine Blood Negative Negative Specific [place] - Urine 1.015 1.005-1.025 Urine Protein Negative Neg-Trace mg/dL Urine Ketones Negative Negative mg/dL Nitrite Urine Negative Negative Leukocyte Esterase Urine Large (3+) Negative RBC Urine 0-2 0-2 /HPF WBC Urine 0-5 0-5 /HPF Squamous Epithelial Cell Urine 6-10 0-2 /HPF Other Crystals Urine Present Bacteria Urine None Seen None Seen Hyaline Casts Urine 0-2 0-2 /LPF REASON FOR VISIT yearly fasting labs Encounters Encounter Location Date Provider Diagnosis Kendell Vaughn MD [address] [place] [phone] 08/26/2024 Kendell Vaughn Vitamin D deficiency E55.9 ; Pure hypercholesterolemia E78.00 and Iron deficiency anemia, unspecified iron deficiency anemia type D50.9 Assessments Encounter Date Diagnosis (ICD Code) Assessment Notes Treatment Notes Treatment Clinical Notes Section Notes 08/26/2024 Vitamin D deficiency (ICD-10 - E55.9) 08/26/2024 Pure hypercholesterolemia (ICD-10 - E78.00) 08/26/2024 Iron deficiency anem ia, unspecified iron deficiency anemia type (ICD-10 - D50.9) Plan Of Treatment Next Appt Details Provider Name:Kendell rodriguez, 03/05/2025 10:00:00 AM, [address] [place] [address], [phone], Provider Name:Kendell rodriguez, 09/03/2025 07:15:00 AM, [address] [place] [address], [phone], Provider Name:Kendell rodriguez, 09/10/2025 08:30:00 AM, [address] [place] [address], [phone], Progress Notes * Tiffanie MCNAMARA MDOB:12/1944 (79 yo F)Acc No.[id number]:08/26/2024 Progress Note Patient:?Tiffanie Mcnamara Provider:?Kendell Vaughn MD :1945???Age:79 Y???Sex:Female D ate:08/26/2024 Address:[address], [place], [id number] Subjective: * Chief Complaints: * ???Yearly fasting labs * Medical History:? * Surgical History:? * Hospitalization/Major Diagno stic Procedure:? * Medications:? Objective: Assessment: * Assessment: 1.?Vitamin D deficiency - E5 5.9 (Primary)?2.?Pure hypercholesterolemia - E78.00?3.?Iron deficiency anemia, unspecified iron deficiency anemia type - D50.9? Plan: * Treatment: 2.?Pure hypercholesterolemia ?LAB: Complete Blood Count Auto Diff ?LAB: Comprehensive [place]. Panel Fast ?LAB: Lipid Panel ?LAB: UA ClnCatch+Micro w/rflx Cult 3.?Iron deficiency anemia, u nspecified iron deficiency anemia type?LAB: Complete Blood Count Auto Diff ?LAB: Comprehensive [place]. Panel Fast ?LAB: IRON PROFILE ?LAB: Lipid Panel ?LAB: UA ClnCatch+Micro w/rflx Cult * Procedure Codes:?49907 VENIP UNCT, ROUTINE* * * Sign off status: Completed true * Provider:?Kendell Vaughn MD Date:?1 Generated for Devorah da silva/Chapito/eTransmitting on:?12/05/2024 02:31 PM EST
--- OUTSIDE RECORDS SUMMARY | 2024-12-05 14:31 | XMS_ITS ---
Author Organization [facility] Address [address] [place] [phone] Care Team Providers Care Wheel And Caster Repairer Name Role Phone Kendell Vaughn MD Primary Care Provider Jono Gamboa Unavailable [phone] REASON FOR VISIT screening colonoscopy/rectal pressure, hx colon cancer Encounters Encounter Location Date Provider Diagnosis [facility] [address] [place] [phone] 09/25/2024 Jono Rojo PLAN OF TREATMENT Next Appt Details Provider Name:Jono Rojo , 03/16/2025 10:20:00 AM, [address] [facility] , [place], [place], [phone],
== END 2024-12-05 12:32 | disposition home or self-care (01) ==
LOC: HO.CT 12:31
PROVIDERS: PCP Internal Medicine; Visit Provider Internal Medicine
DX: C18.2 Malignant neoplasm of ascending colon (principal)
CPT/HCPCS: 74177; Q9967

== ENCOUNTER → 2024-12-05 12:32 | Outpatient (BNV) | payer MEDICARE, SELFPAY | PROVIDERS: PCP Internal Medicine; Visit Provider Radiology Diagnostic Radiology | DX: K56.41 Fecal impaction (principal) | CPT/HCPCS: 74177 ==

== ENCOUNTER 2024-12-16 10:42 | Outpatient (AMB) | payer MEDICARE, SELFPAY ==
[2024-12-16 11:07] VITALS: BP 110/60; PULSE 78; O2SAT 97; BMI 19.4
--- NOTE | 2024-12-16 11:07 | A.OFFVIS_ITS ---
Vital Signs 12/16/24 11:07 Height 4 ft 10 in Weight 92 lb 9.506 oz BMI 19.4 BP 110/60 Blood Pressure Location Lt brachial Position Sitting Pulse 78 Pulse Source Pulse Oximeter Pulse Oximetry (%) 97 Oxygen Delivery Method Room Air Intake Visit Reasons: COPD Intake Note: pt is here for follow up and states she is feeling good, issues but not the lungs Brand Specialist Required: No Allergies Sulfa (Sulfonamide Antibiotics) Allergy (Severe, Verified 12/16/24 12:08) Anaphylaxis sulfamethoxazole [From Bactrim] Allergy (Severe, Verified 12/16/24 12:08) Anaphylaxis trimethoprim [From Bactrim] Allergy (Severe, Verified 12/16/24 12:08) Anaphylaxis codeine [CODEINE] Allergy (Intermediate, Verified 12/16/24 12:08) GI UPSET erythromycin base Adverse Reaction (Severe, Verified 12/16/24 12:08) gi upset Medication List - Last Reconciled 12/16/24 by Shad Trujillo MD albuterol sulfate 90 mcg/actuation (Ventolin HFA) 1 inh inhalation QID barium sulfate 2%(w/v) (Readi-Cat 2) 450 mL PO BID calcium citrate-vitamin D3 315 mg-5 mcg (200 unit) 1 tab PO DAILY 30 days cholecalciferol (vitamin D3) (Vitamin D3) 25 mcg PO DAILY cranberry 400 mg PO DAILY docusate sodium (Colace) 100 mg PO DAILY estradiol 0.01%(0.1mg/gram) 1 g vaginal 2XW omeprazole 20 mg PO DAILY PRN paroxetine HCl 10 mg PO QAM Do you need a note to return to daycare/school/sports/work: No HPI HPI COPD: Details: THIS 79 YEARS OLD VERY PLEASANT FEMALE IS HERE AFTER 1 YEAR FOR FOLLOW-UP, FOR HER RESPIRATORY ISSUES SHE HAS MINIMAL BIBASILAR FIBROSIS . WHICH HAS REMAINED UNCHANGED SHE HAS OCCASIONAL WHEEZE AND COUGH AND USES ALBUTEROL JUST ONCE IN A WHILE SHE REMAINS VERY ACTIVE AND WALKS A FEW MILES EVERY DAY. DENIES ANY EXCESSIVE SHORTNESS OF BREATH . SHE IS VERY HEALTH CONSCIOUS AND TAKES GOOD CARE OF HERSELF. LAST YEAR SHE HAD COLON RESECTION VERY SUCCESSFULLY . FOR CA OF THE COLON THERE HAS BEEN . NO RECURRENCE SHE IS BOTHERED BY CONSTIPATION FOR WHICH SHE IS BEING WORKED UP . SHE JUST HAD CT SCAN OF THE ABDOMEN , I LOOKED AT THE REPORT AND SHARED THE RESULTS WITH, SHOWING LOT OF CONSTIPATION., BUT NO OTHER SIGNIFICANT ABNORMALITIES. [facility] Medical History Cataract (lens) fragments in eye following cataract surgery, right eye Cataract (lens) fragments in eye following cataract surgery, left eye Myofascial pain Colon cancer Vasovagal near syncope Diarrhea GI (gastrointestinal bleed) Pulmonary fibrosis Glaucoma Vitamin D deficiency Hypercalciuria Osteoporosis Surgical History History of hemicolectomy S/P laparoscopic colectomy (12/05/23) S/P right colectomy Hx of appendectomy History of endoscopy History of surgery on wrist Hx of neck surgery Hx of adenoidectomy Hx of tonsillectomy Hx of colonoscopy Hx of hammer toe correction History of carpal tunnel surgery Family History Father Lung cancer Mother CVD (cardiovascular disease) Social History Household Members: Children Housing: House Alcohol intake: never Comment: COUNTS CORRECT Patient Tobacco Use Status: Former Tobacco user Years Smoked: 5 service: No Review of Systems Const All systems reviewed & are unremarkable except as noted in HPI and below Eyes Reports no additional complaints ENT Reports no additional complaints and Reports neck pain (Mild, s/p neck surgery) Card Denies chest pain, Denies irregular heart rhythm and Denies leg edema Resp Reports as per HPI GI Reports no additional complaints Reports no additional complaints Musc Reports neck pain (Mild, s/p neck surgery) Skin/Breast Reports system reviewed and no additional complaints, except as documented Neuro Reports no additional complaints Psych Reports no additional complaints Physical Exam Vital Signs: Last Vital Signs Pulse 78 12/16/24 11:07 BP 110/60 12/16/24 11:07 Pulse Ox 97 12/16/24 11:07 Oxygen Delivery Method Room Air 12/16/24 11:07 BMI result Body Mass Index 19.4 Const General: healthy appearing, comfortable, no acute distress, alert and awake Orientation/consciousness: patient oriented x3 HEENT Head: Yes normal to inspection General nose exam: No nasal polyps present and No nasal discharge present Face and sinus: Yes sinuses nontender Mouth: oropharynx normal Throat: Yes posterior oropharynx normal Eyes General: appearance normal, both eyes and all related structures Neck Neck: Yes normal visual inspection, Yes no lymphadenopathy, Yes trachea midline, Yes no JVD and Yes other (Surgical scar in right sub mandibular area.) Thyroid: Thyroid normal Chest Chest palpation & inspection: normal inspection of the chest, normal palpation of entire chest wall and no tenderness Resp Effort & Inspection: normal respiratory effort Auscultation: crackles (DOES HAVE A FEW INSPIRATORY CREPITATIONS OVER BOTH BASILAR AREAS.) and no wheezes Cardio Palpation: normal PMI Rate: regular rate Rhythm: regular rhythm Heart sounds: no gallops and no murmurs Peripheral pulses: Peripheral pulses 2+ throughout GI Palpation (GI): Soft to palpation, nontender, No hepatosplenomegaly present and no masses Auscultation: normal bowel sounds Back/Spine/Pelvis Thoracic/Lumbar Spine: thoracic and lumbar spine normal to inspection Skin General skin exam: no rashes or lesions noted Neuro General: patient oriented x3 and no focal motor deficits Cranial nerves: Yes CN's II-XII intact bilaterally Extrem General: Yes normal to inspection, Yes no clubbing, cyanosis or edema and Yes no calf tenderness Psych Appearance: grossly normal and well kempt Speech and movement: Normal speech and movement present Assessment & Plan Assessment & Plan (1) Pulmonary fibrosis: Comment: PULMONARY FIBROSIS IS VERY MILD,UNCHANGED OVER THE YEARS , AND ESSENTAILLY ASYMPTOMATIC . MILD OCCASIONAL BOUTS OF COUGH AND WHEEZING ARE RELATED TO USUAL VIRAL ILLNESS OR SEASONAL NASAL CONGESTION. Code(s): J84.10 - Pulmonary fibrosis, unspecified Category: Medical Plan: AGAIN PATIENT IS REASSURED, .NO ACTIVE TREATMENT NEEDED ADVISE THAT SHE SHOULD WALK DAILY AND DO DEEP BREATHING EXERCISES IN THE FRESH AIR . PATIENT FEELS REASSURED AND INSISTS ON SEEING ME ONCE A YEAR, WHICH IS OKAY WITH ME Coding Level of Care Code Est Pt Level 3 (30418) Diagnoses Pulmonary fibrosis J84.10
--- OUTSIDE RECORDS SUMMARY | 2024-12-16 11:34 | XMS_ITS | Clinical Summary ---
Author Organization [facility] Address [address] [place] [address] Care Team Providers Care Leasing Agent Name Role Phone Kendell Vaughn MD Primary Care Provider [phone] Social History Tobacco Use Types Packs/Day Years [...] age to complete this topic Care Teams Leasing Agent Relationship Specialty Start Date End Date Kendell Vaughn MD [address] [place] [address] PCP - General Internal Medicine 04/26/21
== END 2024-12-16 11:37 | disposition home or self-care (01) ==
PROVIDERS: PCP Internal Medicine; Visit Provider Internal Medicine
DX: J84.10 Pulmonary fibrosis, unspecified (principal)
CPT/HCPCS: 99213

== ENCOUNTER → 2024-12-16 10:42 | Outpatient (BNVA) | payer MEDICARE, SELFPAY | PROVIDERS: PCP Internal Medicine; Visit Provider Internal Medicine | DX: J84.10 Pulmonary fibrosis, unspecified (principal) | CPT/HCPCS: 99212 ==

== ENCOUNTER 2025-02-09 15:38 | Outpatient (REF) | payer MEDICARE, SELFPAY ==
[2025-02-09 15:48] LABS: Appearance Urine Cloudy; Color Urine Yellow; Glucose Urine UA Negative (Negative); Leukocyte Esterase Urine Large (3+) (Negative); Nitrite Urine Negative (Negative); PH 5.5 (5.0-9.0); UMIC TRIGGER UACC YES; Urine Blood Large (3+) (Negative); Urine Ketones Negative (Negative); Urine Protein 30 (1+) mg/dL (Neg-Trace)
[2025-02-09 15:52] LABS: Bacteria Urine Trace (None Seen); Hyaline Casts Urine 0-2 /LPF (0-2); RBC Urine >20 /HPF (0-2); Squamous Epithelial Cell Urine 0-2 /HPF (0-2); UACC Culture Trigger YES; WBC Urine >50 /HPF (0-5)
--- OUTSIDE RECORDS SUMMARY | 2025-02-09 17:35 | XMS_ITS ---
Author Organization [facility] Address [address] [place] [address] Care Team Providers Care Creative Services Designer Name Role Phone Kendell Vaughn MD Primary Care Provider Jono Gamboa [phone] REASON FOR VISIT constipation Encounters Encounter Location Date Provider Diagnosis [facility] [address] [place] [address] 01/08/2025 Jono Rojo Plan Of Treatment Next Appt Details Provider Name:Jono Rojo , 03/16/2025 08:20:00 AM, [address] [place] [address] , [place], [place], [phone], Progress Notes * EMIR MCNAMARAEDOB:[birth year] (79 yo F)Acc No.[id number]:01/08/2025 Patient:?KRIS MCNAMARA :1945???Age:79 Y???Sex:Female Address:[address] [place] [address], [place] [address] * true * Date:? Generated for Printi rekha/Chapito/eTransmitting on:?02/09/2025 01:58 PM EDT
--- OUTSIDE RECORDS SUMMARY | 2025-02-09 17:35 | XMS_ITS ---
Author Organization [facility] Address [address] [place] [address] Care Team Providers Care Director Stage Name Role Phone Kendell Vaughn MD Primary Care Provider Jono Gamboa [phone] REASON FOR VISIT colon screening Encounters Encounter Location Date Provider Diagnosis [facility] [address] [place] [phone] 01/07/2025 Jono Rojo Plan Of Treatment Next Appt Details Provider Name:Jono Rojo , 03/16/2025 08:20:00 AM, [address] [place] [address] , [place], [place], [phone], Progress Notes * EMIR MCNAMARAEDOB:[birth year] (79 yo F)Acc No.[id number]:01/07/2025 Progress Notes Patient:?KRIS MCNAMARA Provider:?Jono Rojo MD :1945???Age:79 Y???Sex:Female D ate:01/07/2025 Address:[address] [place] [address], [facility] Pcp:Kendell Vaughn MD Subjective: * Chief Complaints: * ???1. Colon screening. * Medical History:? Objective: * Vitals:? Assessment: Plan: * Treatment: * * The named appointment provid er may or may not be the originator of this progress note, and it is not deemed complete until electronically signed by the appointment provider. Sign off status: Pending * Provider:?Jono Rojo MD Date:? 025 Generated for Devorah da silva/Chapito/Erick on:?02/09/2025 01:58 PM EDT
--- OUTSIDE RECORDS SUMMARY | 2025-02-09 17:35 | XMS_ITS ---
Author Organization Kendell Vaughn MD Address [address] [place] [phone] Care Team Providers Care Auto Club Travel Counselor Name Role Phone Kendell Vaughn Primary Care Provider REASON FOR VISIT BD orders for 11/05 Encounters Encounter Location Date Provider Diagnosis Kendell Vaughn MD [address] [place] [phone] 09/01/2024 Kendell Vaughn Osteoporosis M81.0 Assessments Encounter Date Diagnosis (ICD Code) Assessment Notes Treatment Notes Treatment Clinical Notes Section Notes 09/01/2024 Osteoporosis (ICD-10 - M81.0) Plan Of Treatment Future Test Test Name Order Date BONE DENSITY DEXA 09/01/2025 Next Appt Details Provider Name:Kendell Cadena ier, 02/23/2025 07:30:00 AM, [address] [facility], [address], [place], [phone], Provider Name:Kendell Cadena ier, 03/05/2025 10:00:00 AM, [address] [facility], [address], [place], [phone], Provider Name:Kendell Cadena ier, 09/03/2025 07:15:00 AM, [address] [place] [address], Suite [facility], [place], [phone], Provider Name:Kendell Cadena ier, 09/10/2025 08:30:00 AM, [address] [place] [address], Suite [facility], [place], [phone], Progress Notes * Tiffanie MCNAMARA MDOB:12/1944 (79 yo F)Acc No.[id number]:09/01/2024 Patient:?Tiffanie Mcnamara :1945???Age:79 Y???Sex:Female Address:[address] [place] [address] [place] [address] Subjective: * Chief Complaints: * ???BD orders for 11/05 * Medical History:? * Surgical History:? * Hospitalization/Major Diagno stic Procedure:? * Medications:? Objective: Assessment: * Assessment: 1.?Osteoporosis - M81.0? Plan: * Treatment: * Procedure Codes:? * true * Date:? Generated for Devorah da silva/Chapito/eTransmitting on:?02/09/2025 05:35 PM EDT
--- OUTSIDE RECORDS SUMMARY | 2025-02-09 17:35 | XMS_ITS ---
Author Organization Kendell Vaughn MD Address [address] [place], [place] [phone] Care Team Providers Care Copier Field Service Technician Name Role Phone Kendell Vaughn Primary Care Provider [phone] Allergies Allergen (clinical drug ingredient) Drug/Non Drug Allergy documented on EMR Reaction Allergy Type Onset Date Status codeine Codeine Sulfate gi upset Drug Allergy A ctive sulfamethoxazole / trimethoprim Bactrim DS heart palpitations Drug Allergy Active erythromycin erythromycin (uncoded) gi upset Allergy Active Results Component Value Reference Range Notes UA ClnCatch+Micro w/rflx Cul t (Not yet reviewed by provider) Interpretation: Performing Lab:[facility], [address] [place] [phone] Notes/Report: Urine, Clean Catch Color Urine Yellow Appearance Urine Cloudy PH 5.5 5.0-9.0 Glucose Urine UA Negative Negative mg/dL Urine Blood Large (3+) Negative Specific [place] - Urine 1.010 1.005-1.025 Urine Protein 30 (1+) Neg-Trace mg/dL Urine Ketones Negative Negative mg/dL Nitrite Urine Negative Negative Leukocyte Esterase Urine Large (3+) Negative RBC Urine >20 0-2 /HPF WBC Urine >50 0-5 /HPF Squamous Epithelial Cell Urine 0-2 0-2 /HPF Bacteria Urine Trace None Seen Hyaline Casts Urine 0-2 0-2 /LPF REASON FOR VISIT UTI Medications Medication SIG (Take, Route, Frequency, Duration) Notes Start Date End Date Status Calcium 600 MG 1 tablet with meals Orally once a day Active Estradiol 0.1 MG/GM 1 application Vagina l Two times a Week Active Ativan 0.5 MG 1 tablet as needed Orally Twice a day 06/15/2015 Not-Taking Omeprazole 20 MG 1 capsule 30 minutes before morning meal Orally Once a day Active Vitamin D (Cholecalciferol) 25 MCG (1000 UT) 1 capsule Orally Once a day Active Methenamine Hippurate 1 GM 1 tablet Orally Twice a day for 10 day(s) Not-Taking tiZANidine HCl 2 MG 1 tablet as needed Orally Three times a day Not-Rustam ing PriLOSEC OTC 20 MG 2 tablet 30 minutes before morning meal Orally Once a day Not-Taking Ibuprofen 800 MG 1 TABLET ORALLY THRE E TIMES A DAY for 30 Not-Taking Cephalexin 500 MG 1 capsule Orally twi ce a dayt for 5 days 02/09/2025 Active Vitamin C 500 MG as directed Orally Active Cranberry 405 MG 1 capsule with meals Orally Twice a day Active PARoxetine HCl 10 MG TAKE 1 TABLET BY [facility] EVERY DAY IN THE MORNING for 90 Active Albuterol Sulfate HFA 108 (90 Base) MCG/ACT 2 puff as needed Inhalation every 4 hrs 02/16/2023 Active Stool Softener 100 MG 1 tablet as needed Orally three times a day Active Vital Signs Blood pressure systolic 112 mm Hg 02/10/20 25 Blood pressure diastolic 64 mm Hg 025 Height 59.5 in 02/09/2025 Weight 94 lbs 02/09/2025 BMI 18.67 kg/m2 02/09/2025 weight is up 4 pounds since 09-05-24 Encounters Encounter Location Date Provider Diagnosis Kendell Vaughn MD [address] [place] [phone] 02/09/2025 Kendell Vaughn UTI (urinary tract infection) N39.0 Assessments Encounter Date Diagnosis (ICD Code) Assessment Notes Treatment Notes Treatment Clinical Notes Section Notes 02/09/2025 UTI (urinary tract infection) (ICD-10 - N39.0) patient verbalized understanding of medication and directions for use Plan Of Treatment Medication Medication Name Sig Start Date Stop Date Notes Cephalexin 500 MG 1 capsule Orally twice a dayt for 5 days 02/09/2025 Treatment Notes Assessment Notes UTI (urinary tract infection) patient ve rbalized understanding of medication and directions for use Pending Test Test Name Order Date UA ClnCatch+Micro w/rflx Cult 02/09/2025 Next Appt Details Provider Name:Kendell rodriguez, 02/23/2025 07:30:00 AM, [address] [place] [address], [phone], Provider Name:Kendell rodriguez, 03/05/2025 10:00:00 AM, [address] [place] [address], [phone], Provider Name:Kendell rodriguez, 09/03/2025 07:15:00 AM, [address] [place] [address], [phone], Provider Name:Kendell rodriguez, 09/10/2025 08:30:00 AM, [address] [place] [address], [phone], Progress Notes * Tiffanie MCNAMARA MDOB:12/1944 (79 yo F)Acc No.[id number]:02/09/2025 Progress Notes Patient:?Tiffanie MCNAMARA Provider:?Kendell Vaughn MD :1945???Age:79 Y???Sex:Female D ate:02/09/2025 Address:[address] [place], [place] [address], [id number] Subjective: * Chief Complaints: * ???1. UTI. * HPI: ???Symptom(s):?patient is a 79 yo female here as emergency for uti.burning and frequency. * ROS:?General/Constitutional:?Denies?Chills.?Denies?Fatigue.?Denies?Fever.?Denies?Headache.?ENT:?Denies?Sore throat.?Respiratory:?Denies?Cough.?Denies?Shortness of breath at rest.?Denies?Shortness of breath with exertion.?Gastrointestinal:?Denies?Diarrhea.?Denies?Nausea.?Genitourinary:?Admits?Abdominal pain/swelling.?Admits?Frequent urination.?Admits?Pain in lower back.?Admits?Painful urination.? * Medical History:?colonoscopy 10/03/2013 and 2004 negative - no further colonoscopies indicated per Dr. Rojo:12/04/23 colonoscopy pending path, Pap smear - negative (10/20/2013), Blood on underwear. had cysto, Tizanidine is zanaflex. * Medications:?Taking Vitamin C 500 MG Capsule as directed Orally , Taking Albuterol Sulfate HFA 108 (90 Base) MCG/ACT Aerosol Solution 2 puff as needed Inhalation every 4 hrs , Taking Stool Softener 100 MG Tablet 1 tablet as needed Orally three times a day , Taking Cranberry 405 MG Capsule 1 capsule with meals Orally Twice a day , Taking PARoxetine HCl 10 MG Tablet TAKE 1 TABLET BY MOUTH EVERY DAY IN THE MORNING , Taking Calcium 600 MG Tablet 1 tablet with meals Orally once a day , Taking Estradiol 0.1 MG/GM Cream 1 application Vaginal Two times a Week , Taking Omeprazole 20 MG Capsule Delayed Release 1 capsule 30 minutes before morning meal Orally Once a day , Taking Vitamin D (Cholecalciferol) 25 MCG (1000 UT) Capsule 1 capsule Orally Once a day , Not-Taking/PRN PriLOSEC OTC 20 MG Tablet Delayed Release 2 tablet 30 minutes before morning meal Orally Once a day , Not-Taking/PRN Ibuprofen 800 MG Tablet 1 TABLET ORALLY THREE TIMES A DAY , Not-Taking/PRN tiZANidine HCl 2 MG Tablet 1 tablet as needed Orally Three times a day , Not-Taking/PRN Methenamine Hippurate 1 GM Tablet 1 tablet Orally Twice a day , Not-Taking/PRN Ativan 0.5 MG Tablet 1 tablet as needed Orally Twice a day * Allergies:?erythromycin: gi upset, Codeine Sulfate: gi upset, Bactrim DS: heart palpitations. Objective: * Vitals:?Ht: 59.5, Wt: 94, BM I:18.67, BP:112/64, Wt-k.64. weight is up 4 pounds since 09-05-24. * Examination: ???General Examination: ?GENERAL APPEARANCE:?well developed, well nourished.?HEAD:?normocephalic.?SKIN:?good turgor.?HEART:?regular rate and rhythm, no murmurs, rubs, gallops, no murmurs, rubs, gallops.?LUNGS:?no wheezes, rales, rhonchi, good air movement, clear to auscultation bilaterally.?ABDOMEN:?no guarding or rigidity.?BACK:?no costovertebral angle tenderness.? Assessment: * Assessment: 1.?UTI (urinary tract infect ion) - N39.0??? Plan: * Treatment: * * The named appointment provid er may or may not be the originator of this progress note, and it is not deemed complete until electronically signed by the appointment provider. Sign off status: Pending * Provider:?Kendell Vaughn MD Date:?0 02/09/2025 Generated for Devorah da silva/Chapito/Carlyitting on:?02/09/2025 05:35 PM EDT History and Physical Notes * HPI (History of Present Illness) Category Sub-Category Detail Notes Category Not es Symptom(s) patient is a 79 yo female here as emergency for uti.burning and frequency Examination Category Sub-Category Detail Notes Category Not es General Examination GENERAL APPEARANCE: well developed , well nourished HEAD: normocephalic HEART: regular rate and rhy thm, no murmurs, rubs, gallops, no murmurs, rubs, gallops LUNGS: no wheezes, rales, r honchi, good air movement, clear to auscultation bilaterally ABDOMEN: no guarding or rigid ity SKIN: good turgor BACK: no costovertebral an gle tenderness
--- OUTSIDE RECORDS SUMMARY | 2025-02-09 17:36 | XMS_ITS ---
Author Organization Kendell Vaughn MD Address [address] [place] [phone] Care Team Providers Care Product Development Ecologist Name Role Phone Kendell Vaughn Primary Care Provider [phone] Allergies Allergen (clinical drug ingredient) Drug/Non Drug [...] HCl 10 MG TAKE 1 TABLET BY [facility] EVERY DAY IN THE MORNING for 90 [...] Location Date Provider Diagnosis Kendell Vaughn MD [address] [place] [address] [address] [place], [place] [phone] 09/05/2024 Kendell Vaughn Osteoporosis M81.0 ; Pure [...] Up: 6 Months, Reason: Provider Name:Kendell rodriguez, 02/23/2025 07:30:00 AM, [address] [place] [address], [phone], Provider Name:Kendell rodriguez, 03/05/2025 10:00:00 AM, [address] [place] [address], [phone], Provider Name:Kendell rodriguez, 09/03/2025 07:15:00 AM, [address] [place] [address], [id number], Provider Name:Kendell rodriguez, 09/10/2025 08:30:00 AM, [address] [place] [address], [phone], Progress Notes * Tiffanie MCNAMARA MDOB:12/1944 (79 yo F)Acc No.[id number]:09/05/2024 Patient:?Tiffanie Mcnamara Provider:?Kendell Vaughn MD :1945???Age:79 Y???Sex:Female D ate:09/05/2024 Address: [address], [place], [id number] Subjective: * Chief Complaints: * ???Review labs [...] ?Unsaturated Iron Binding 161 - ug/dL ???Lab:[facility]prehensive [facility]. [facility] (Order Date - 08/26/2024) [...] mg/dL ?Urine Blood Negative Negative - ?Specific [place] - Urine 1.015 1.005-1.025 - ?Urine Protein [...] organomegaly , no masses palpable.?RECTAL EXAM:?done by first coat operator.?FEMALE GENITOURINARY:?done by first coat operator.?EXTREMITIES:?no clubbing, cyanosis, or edema.?NEUROLOGIC:?nonfocal, motor strength normal upper and lower extremities, sensory exam intact.? Assessment: * Assessment: 1.?Osteoporosis - M81.0 (Lisandra rucker)?2.?Pure hypercholesterolemia - E78.00?3.?Vitamin D deficiency - E55.9?4.?Reflux [...] Vaughn MD Date:?1 Generated for Devorah da silva/Chapito/Elleransmitting on:?02/09/2025 05:35 PM EDT History and Physical [...] Total Score: 0 Interpretation and Intervention Depression Elvirae jorge Findings: Negative Follow-Up for Depression: : [...] palpable b ilaterally RECTAL EXAM: done by first coat operator FEMALE GENITOURINARY: done by first coat operator ORAL CAVITY: mucosa moist
--- OUTSIDE RECORDS SUMMARY | 2025-02-09 17:36 | XMS_ITS | Patient Health Record ---
Author Organization [facility] Address [address] [place] [address] Care Team Providers Care Clinical Nurse Leader Name Role Phone Roderick GARCIA, Kendell Primary Care Provider Jono Gamboa Unavailable [phone] Allergies Allergen (clinical drug ingredient) Drug/Non Drug [...] Status Risk Notes Problem Iron deficiency anemia (38861376) Iron deficiency anemia (D50.9) Active confirmed Problem 841904751 Gastroesophageal reflux disease, esophagitis presence not specified (K21.9) Active confirmed Problem 73601493 Constipation, unspecified constipation type (K59.00) Active confirmed Problem History of malignant neoplasm of colon (795613680) Personal history of colon cancer (Z85.038) Active confirmed Problem Chronic constipation (437056201) Chronic constipation (K59.09) Active confirmed Problem 92845854 Esophageal dysphagia (R13.19) Active confirmed Problem Primary adenocarcinoma of ascending colon (696765128619099) Primary adenocarcinoma of ascending colon (C18.2) Active confirmed Vital Signs Blood pressure diastolic 00 mm Hg 11/25/2024 Height 58.25 in 11/25/2024 Blood pressure systolic 00 mm Hg 11/25/2024 Weight 91 lbs 11/25/2024 BMI 18.85 kg/m2 11/25/2024 Encounters Encounter Location Date Provider Diagnosis [facility] [address] [place] [address] 11/25/2024 Jono Rojo Personal history of colon cancer Z85.038 ; Chronic constipation K59.09 and Gastroesophageal reflux disease, esophagitis presence not specified K21.9 [facility] [address] [place] [address] 01/08/2025 Jono Rojo Assessments Encounter Date Diagnosis [...] Provider Name:Jono Rojo , 03/16/2025 08:20:00 AM, [address] [place] [address] , [place], [place], [phone], Insurance Providers Payer Name Payer Address Payer Phone Subscriber Number Group Number Insured Name Patient Relationship to Insured Coverage Start Date Coverage End Date MEDICARE OF [place] [address] [facility] [id number] TIFFANIE WATT Self - patient is the insured MEDEX ATTN CLAIMS [address] [place] [address] [id number] TIFFANIE WATT Self - patient is the insured Medical (General) History Medical History History ICD Code Denies [place],DM,CVA,renal disease Colonoscopy 11-17-2004--internal hemorrhoi ds; neg. flex sigs in the Osteoporosis/ osteopenia Pulmonary fibrosis--sees Dr. Cassandra Closed angle glaucoma Neg. colonoscopy in 09/2013 [...]
--- OUTSIDE RECORDS SUMMARY | 2025-02-09 17:36 | XMS_ITS ---
Author Organization [facility] Address [address] [place] [address] Care Team Providers Care Bulk Intake Worker Name Role Phone Roderick GARCIA, Kendell Primary Care Provider Jono Gamboa Unavailable [phone] Allergies Allergen (clinical drug ingredient) Drug/Non Drug [...] Problem History of malignant neoplasm of colon (422814253) Personal history of colon cancer (Z85.038) Active confirmed Problem Chronic constipation (618966015) Chronic constipation (K59.09) Active confirmed Vital Signs Blood pressure systolic 00 mm Hg 11/25/19 25 Blood pressure diastolic 00 mm Hg 025 Height 58.25 in 11/25/2024 Weight 91 lbs 11/25/2024 BMI 18.85 kg/m2 11/25/2024 Encounters Encounter Location Date Provider Diagnosis [facility] [address] [place] [phone] 11/25/2024 Jono Rojo Personal history of colon [...] prn, Reason: Provider Name:Jono Rojo , 03/16/2025 08:20:00 AM, [address] [place] [address], [phone], Progress Notes * EMIR MCNAMARAEDOB:[birth year] (79 yo F)Acc No.[id number]:11/25/2024 Progress Notes Patient:?TIFFANIE MCNAMARA Provider:?Jono Rojo MD :1945???Age:79 Y???Sex:Female D ate:11/25/2024 Address:[address] [place], [place] [phone] Pcp:Kendell Vaughn MD Subjective: * Chief Complaints: [...] Family History:?Father: dece ased 65 yrs, lung cancer/stationary fireman.?Mother: 95 yrs, diagnosed with Heart disease.? No [...] for 11/25/2024) * Procedure Codes:?1036F TOBAC CO [id number] BP SCR NOT PRFRM REC REASON NOS [...] Devorah da silva/Chapito/Erick on:?02/09/2025 01:58 PM EDT History and Physical Notes * [...]
--- OUTSIDE RECORDS SUMMARY | 2025-02-09 17:36 | XMS_ITS | Clinical Summary ---
Author Organization [facility] Address [address] [place] [address] Care Team Providers Care Blindstitch Lining Feller Name Role Phone Kendell Vaughn MD Primary Care Provider [phone] Social History Tobacco Use Types Packs/Day Years [...] age to complete this topic Care Teams Blindstitch Lining Feller Relationship Specialty Start Date End Date Kendell Vaughn MD [address] [place] [address] PCP - General Internal Medicine 04/26/21
== END 2025-02-09 15:39 | disposition home or self-care (01) ==
LOC: HO.LNP 15:38
PROVIDERS: Visit Provider Internal Medicine
DX: N39.0 Urinary tract infection, site not specified (principal)
CPT/HCPCS: 81001; 87086; 87088; 87186

== ENCOUNTER 2025-02-23 07:30 | Outpatient (REF) | payer MEDICARE, SELFPAY ==
[2025-02-23 10:56] LABS: Appearance Urine Turbid; Color Urine Yellow; Glucose Urine UA Negative (Negative); Leukocyte Esterase Urine Large (3+) (Negative); Nitrite Urine Negative (Negative); Specific Gravity - Urine 1.015 (1.005-1.025); UMIC TRIGGER UACC YES; Urine Blood Negative (Negative); Urine Ketones Negative (Negative); Urine Protein Negative (Neg-Trace)
[2025-02-23 11:16] LABS: Bacteria Urine None Seen (None Seen); Hyaline Casts Urine 0-2 /LPF (0-2); RBC Urine 0-2 /HPF (0-2); UACC Culture Trigger YES; WBC Urine 0-5 /HPF (0-5)
--- OUTSIDE RECORDS SUMMARY | 2025-02-23 11:34 | XMS_ITS ---
Author Organization [facility] Address [address] [place] [address] Care Team Providers Care Clinical Audiologist Name Role Phone Kendell Vaughn MD Primary Care Provider Jono Gamboa [phone] REASON FOR VISIT constipation Encounters Encounter Location Date Provider Diagnosis [facility] [address] [place] [address] 01/08/2025 Jono Rojo Plan Of Treatment Next Appt Details Provider Name:Jono Rojo , 03/16/2025 08:20:00 AM, [address] [place] [address] , [place], [place], [phone], Progress Notes * EMIR MCNAMARAEDOB:[birth year] (79 yo F)Acc No.[id number]:01/08/2025 Patient:?KRIS MCNAMARA :1945???Age:79 Y???Sex:Female Address:[address] [place] [address], [place] [address] * true * Date:? Generated for Printi rekha/Chapito/eTransmitting on:?02/23/2025 11:34 AM EDT
--- OUTSIDE RECORDS SUMMARY | 2025-02-23 11:34 | XMS_ITS | Patient Health Record ---
Author Organization Kendell Vaughn MD Address [address] [place] [phone] Care Team Providers Care Striping Machine Operator Name Role Phone Kendell Vaughn Primary [...] (Not yet reviewed by provider) Interpretation: Performing Lab:[facility], [address] [place] [phone] Notes/Report: Urine, Clean Catch Color Urine Yellow Appearance Urine Turbid PH 8.0 5.0-9.0 Glucose Urine UA Negative Negative mg/dL Urine Blood Negative Negative Specific [place] - Urine 1.015 1.005-1.025 Urine Protein Negative Neg-Trace mg/dL Urine Ketones Negative Negative mg/dL Nitrite Urine Negative Negative Leukocyte Esterase Urine Large (3+) Negative RBC Urine 0-2 0-2 /HPF WBC Urine 0-5 0-5 /HPF Squamous Epithelial Cell Urine 6-10 0-2 /HPF Bacteria Urine None Seen None Seen Hyaline Casts Urine 0-2 0-2 /LPF Complete Blood Count Auto Di ff Reviewed date:08/27/2024 06:47:49 PM Interpretation: Performing Lab:[facility], [address] [place] [phone] Notes/Report: White Blood Count 5.2 4.8-10.8 X10*3/uL [...] 0.0-0.2 /100WBC Neutrophils Absolute Auto 2.5 2.0-8.3 x10*3/uL Imm Gran Abs Auto 0.02 0.00-0.03 X10*3/uL Lymphocytes Absolute Auto 2.0 1.2-4.9 X10*3/uL Monocytes Absolute Auto 0.5 0.1-1.2 X10*3/uL Eosinophils Absolute Auto 0.2 0.0-0.4 X10*3/uL Basophils Absolute Auto 0.0 0.0-0.2 X10*3/uL NRBC Abs Auto 0.000 0.0-0.012 X10*3/uL Comprehensive Robbins. Panel Fa Reviewed date:08/28/2024 09:26:45 PM Interpretation: Performing Lab:[facility], [address] [place] [phone] Notes/Report: Sodium 139 135-145 mmol/L Potassium 4.2 3.3-5.1 mmol/L Chloride 103 96-108 mmol/L Carbon Dioxide 30 22-29 mmol/L Anion Gap 10 12-20 Blood Urea Nitrogen 17 9-16 mg/dL Creatinine 0.69 0.5-1.4 mg/dL Estimated Glomerular Filt Rate > 60 NOTE: For -Bulgarian individuals, multiply the result by 1.210. Chronic [...] PROFILE Reviewed date:08/27/2024 06:41:00 PM Interpretation: Performing Lab:[facility], [address] [place] [phone] Notes/Report: Iron 123 30-160 mcg/dL Total Iron Binding Capacity 284 228-428 mcg/dL Percent Iron Saturation 43 15-50 % Unsaturated Iron Binding 161 Lipid Panel Reviewed date:08/27/2024 06:41:40 PM Interpretation: Performing Lab:[facility], [address] [place] [phone] Notes/Report: Triglycerides 60 <150 mg/dL Desirable Triglyceride: [...] t Reviewed date:08/28/2024 09:35:22 PM Interpretation: Performing Lab:[address] [phone] Notes/Report: Urine, Clean Catch Color Urine Yellow Appearance Urine Clear PH 7.5 5.0-9.0 Glucose Urine UA Negative Negative mg/dL Urine Blood Negative Negative Specific [place] - Urine 1.015 1.005-1.025 Urine Protein Negative Neg-Trace mg/dL Urine Ketones Negative Negative mg/dL Nitrite Urine Negative Negative Leukocyte Esterase Urine Large (3+) Negative RBC Urine 0-2 0-2 /HPF WBC Urine 0-5 0-5 /HPF Squamous Epithelial Cell Urine 6-10 0-2 /HPF Other Crystals Urine Present Bacteria Urine None Seen None Seen Hyaline Casts Urine 0-2 0-2 /LPF UA ClnCatch+Micro w/rflx Cul t Reviewed date:02/10/2025 09:39:40 AM Interpretation: Performing Lab:[address] [phone] Notes/Report: Urine, Clean Catch Color Urine Yellow Appearance Urine Cloudy PH 5.5 5.0-9.0 Glucose Urine UA Negative Negative mg/dL Urine Blood Large (3+) Negative Specific [place] - Urine 1.010 1.005-1.025 Urine Protein 30 (1+) Neg-Trace mg/dL Urine Ketones Negative Negative mg/dL Nitrite Urine Negative Negative Leukocyte Esterase Urine Large (3+) Negative RBC Urine >20 0-2 /HPF WBC Urine >50 0-5 /HPF Squamous Epithelial Cell Urine 0-2 0-2 /HPF Bacteria Urine Trace None Seen Hyaline Casts Urine 0-2 0-2 /LPF Complete Blood Count no Diff Reviewed date:05/26/2024 06:21:07 PM Interpretation: Performing Lab:[address] [phone] Notes/Report: White Blood Count 6.5 4.8-10.8 X10*3/uL Red Blood Count 4.39 4.20-5.50 X10*6/uL Hemoglobin 13.2 12.0-16.0 g/dl Hematocrit 39.5 37.0-47.0 % Mean Corpuscular Volume 90.0 80.0-98.0 fL Mean Corpuscular Hemoglobin 30.1 27.0-33.0 pg Mean Corpuscular HGB Conc 33.4 31.0-35.0 g/dl Red Cell Distribution Width 15.7 11.0-16.0 % Platelet Count 224 160-400 X10*3/uL Mean Platelet Volume 10.5 9.4-12.3 fL NRBC Pct Auto 0.0 0.0-0.2 /100WBC NRBC Abs Auto 0.000 0.0-0.012 X10*3/uL Leukemia/Lymphoma Eval. Bloo d Reviewed date:05/28/2024 02:05:35 PM Interpretation: Performing Lab:[address] [phone] Notes/Report: LEUKEMIA/LYMPHOMA [id number] BLOOD LLE Interpretation See Note See repor t from IGIGI in the EMR. Comprehensive Met. Panel Reviewed date:05/26/2024 06:11:43 PM Interpretation: Performing Lab:[address] [phone] Notes/Report: Sodium 139 135-145 mmol/L Potassium 4.3 3.3-5.1 mmol/L Chloride 103 96-108 mmol/L Carbon Dioxide 28 22-29 mmol/L Anion Gap 12 12-20 Blood Urea Nitrogen 19 9-16 mg/dL Creatinine 0.80 0.5-1.4 mg/dL Creatinine Clr Calc Pharmacy 35.4 Provided height and weight: 147.32 cm, 40 kg. eGFR (calculated from the MDRD study equation) and eCrCl (calculated from the Cockcroft-Gault equation) are based on different parameters and may not yield comparable results. If eCrCl result is absurd, please check patient's height/weight. Estimated Glomerular Filt Rate > 60 NOTE: For -Bulgarian individuals, multiply the result by 1.210. Chronic Kidney Disease: Estimated GFR < 60 mL/min/1.73m2 Severe Kidney Disease: Estimated GFR < 15 mL/min/1.73m2 Glucose Random 126 60-115 mg/dL Calcium 9.6 8.4-10.2 mg/dL Bilirubin Total 0.5 0.0-1.0 mg/dL Aspartate Amino Transferase 21 5-31 U/L Alanine Aminotransferase 12 0-31 U/L Total Protein 7.0 6.5-8.0 g/dL Albumin Level 3.8 3.5-5.0 g/dL Alkaline Phosphatase 48 39-117 U/L Ferritin Reviewed date:05/26/2024 06:01:37 PM Interpretation: Performing Lab:[facility], [address] [place] [phone] Notes/Report: Ferritin 61 10-250 ng/mL Lactate Dehydrogenase Reviewed date:05/26/2024 05:57:02 PM Interpretation: Performing Lab:[facility], [address] [place] [phone] Notes/Report: Lactate Dehydrogenase 209 122-220 U/L Vitamin B12 and Folate Reviewed date:05/26/2024 06:10:00 PM Interpretation: Performing Lab:[address] [phone] Notes/Report: Vitamin B12 1459 200-900 pg/mL NORMAL 200-900 PG/ML INDETERMINATE 160-199 PG/ML DEFICIENT < 160 PG/ML Folate 13.4 > or = 4.0 ng/mL Reference Values: > or = 4.0 ng/mL < 4.0 ng/mL suggests folate deficiency Methotrexate, aminopterin and folinic acid (leucovorin) are chemotherapeutic agents whose molecular structures are similar to folate; therefore, the Tubing Machine Tender folate assay cannot be used for patients using these drugs. Thyroid Stimulating Hormone Reviewed date:05/26/2024 05:56:53 PM Interpretation: Performing Lab:[facility], [address] [place] [phone] Notes/Report: Thyroid Stimulating Hormone 0.95 0.32-4.0 uIU/mL TSH 3rd Generation ([facility]) MM tomosynthesis screening B I Reviewed date:08/25/2024 11:03:33 AM Interpretation: Performing Lab: Notes/Report: [facility] [address] [place] [address] Mammography Report Signed Patient: Tiffanie Friedman MR#: [id number] : 1945 Acct:[id number] Age/Sex: 78 / F ADM Date: 08/07/24 Loc: HO.MAMMO Attending Dr: Kendell Vaughn MD Ordering Physician: Kendell Vaughn MD Results: 1Ne gative Date of Service: 08/07/24 Follow Up: 1 Year From Orig ina Mammogram Procedure(s): MM tomosynthesis screening BI Accession Number(s): [id number] cc: Kendell Vaughn MD EXAMINATION: MM SCREENING DIGITAL BREAST TOMOSYNTHESIS, BILATERAL CLINICAL INFORMATION: Screening. Asymptomatic. COMPARISON: Mammography: Comparison is made with available priors TECHNIQUE: Digital breast mammography with tomosynthesis is performed in both the craniocaudal and mediolateral oblique views along with computer-aided detection (CAD). FINDINGS: The breasts are heterogeneously dense, which may obscure small masses (ACR BI-RADS breast composition Category c). There are no significant masses, abnormal calcifications, or other abnormalities. MM/MM tomosynthesis screening BI IMPRESSION: No mammographic evidence of malignancy. ASSESSMENT: BI-RADS BI-RADS 1 - Negative RECOMMENDATION: Routine annual mammography screening. 1 year F/U This examination should not preclude the clinical evaluation of a suspicious palpable abnormality. This patient's information was entered into a reminder system with a target due date for their next mammogram. Electronically signed by: Laurel Nguyễn DO 08/19/2024 05:49 PM EDT Dictated By: Laurel Nguyễn DO Signed By: <Electronically signed by Laurel Nguyễn DO in OV> 08/19/24 0499 DD/ 1130 TD/TT: 08/07/24 1156 Executive Vice President Business Development: [facility] [address] [place] [address] Mammography Report Signed Patient: Tiffanie Friedman MR#: [id number] : 1945 Acct:[id number] Age/Sex: 78 / F ADM Date: 08/07/24 Loc: HO.MAMMO Attending Dr: Kendell Vaughn MD Ordering Physician: Kendell Vaughn MD Results: 1Ne gative Date of Service: 08/07/24 Follow Up: 1 Year From Orig ina Mammogram Procedure(s): MM tomosynthesis screening BI Accession Number(s): [id number] cc: Kendell Vaughn MD EXAMINATION: MM SCREENING DIGITAL BREAST TOMOSYNTHESIS, BILATERAL CLINICAL INFORMATION: Screening. Asymptomatic. COMPARISON: Mammography: Comparison is made with available priors TECHNIQUE: Digital breast mammography with tomosynthesis is performed in both the craniocaudal and mediolateral oblique views along with computer-aided detection (CAD). FINDINGS: The breasts are heterogeneously dense, which may obscure small masses (ACR BI-RADS breast composition Category c). There are no significant masses, abnormal calcifications, or other abnormalities. MM/MM tomosynthesis screening BI IMPRESSION: No mammographic evidence of malignancy. ASSESSMENT: BI-RADS BI-RADS 1 - Negative RECOMMENDATION: Routine annual mammography screening. 1 year F/U This examination should not preclude the clinical evaluation of a suspicious palpable abnormality. This patient's information was entered into a reminder system with a target due date for their next mammogram. Electronically josh d by: Laurel Nguyễn DO 08/19/2024 05:49 PM EDT Dictated By: Laurel Nguyễn DO Signed By: <Electronically signed by Laurel Nguyễn DO in OV> 08/19/24 1749 DD/ 1130 TD/TT: 08/07/24 1156 Executive Vice President Business Development: Urine Culture Reviewed date:08/27/2024 06:47:18 PM Interpretation: Performing Lab:[facility], [address] [place] [phone] Notes/Report: Urine Culture Report Result Urine Culture < 10,000 cfu/ml Complete Blood Count Auto Di ff Reviewed date:11/24/2024 05:38:48 PM Interpretation: Performing Lab:[facility], [address] [place] [phone] Notes/Report: White Blood Count 6.7 4.8-10.8 X10*3/uL Red Blood Count 4.36 4.20-5.50 X10*6/uL Hemoglobin 13.3 12.0-16.0 g/dl Hematocrit 39.6 37.0-47.0 % Mean Corpuscular Volume 90.8 80.0-98.0 fL Mean Corpuscular Hemoglobin 30.5 27.0-33.0 pg Mean Corpuscular HGB Conc 33.6 31.0-35.0 g/dl Red Cell Distribution Width 13.6 11.0-16.0 % Platelet Count 244 160-400 X10*3/uL Mean Platelet Volume 10.7 9.4-12.3 fL Neutrophils Percent Auto 62.5 45-73 % Imm Gran Pct Auto 0.3 0.0-0.4 % Lymphocytes Percent Auto 26.2 20-40 % Monocytes Percent Auto 9.1 2-11 % Eosinophils Percent Auto 1.3 0-4 % Basophils Percent Auto 0.6 0-2 % NRBC Pct Auto 0.0 0.0-0.2 /100WBC Neutrophils Absolute Auto 4.2 2.0-8.3 x10*3/uL Imm Gran Abs Auto 0.02 0.00-0.03 X10*3/uL Lymphocytes Absolute Auto 1.8 1.2-4.9 X10*3/uL Monocytes Absolute Auto 0.6 0.1-1.2 X10*3/uL Eosinophils Absolute Auto 0.1 0.0-0.4 X10*3/uL Basophils Absolute Auto 0.0 0.0-0.2 X10*3/uL NRBC Abs Auto 0.000 0.0-0.012 X10*3/uL Comprehensive Met. Panel Reviewed date:11/24/2024 05:24:22 PM Interpretation: Performing Lab:[facility], [address] [place] [phone] Notes/Report: Sodium 140 135-145 mmol/L Potassium 4.3 3.3-5.1 mmol/L Chloride 106 96-108 mmol/L Carbon Dioxide 30 22-29 mmol/L Anion Gap 8 12-20 Blood Urea Nitrogen 19 9-16 mg/dL Creatinine 0.66 0.5-1.4 mg/dL Creatinine Clr Calc Pharmacy 43.1 Provided height and weight: 147.32 cm, 41.8 kg. eGFR (calculated from the MDRD study equation) and eCrCl (calculated from the Cockcroft-Gault equation) are based on different parameters and may not yield comparable results. If eCrCl result is absurd, please check patient's height/weight. Estimated Glomerular Filt Rate > 60 Chronic Kidney Disease: Estimated GFR < 60 mL/min/1.73m2 Severe Kidney Disease: Estimated GFR < 15 mL/min/1.73m2 Glucose Random 123 60-115 mg/dL Calcium 9.1 8.4-10.2 mg/dL Bilirubin Total 0.4 0.0-1.0 mg/dL Aspartate Amino Transferase 22 5-31 U/L Alanine Aminotransferase 15 0-31 U/L Total Protein 7.0 6.5-8.0 g/dL Albumin Level 3.7 3.5-5.0 g/dL Alkaline Phosphatase 59 39-117 U/L Carcinoembryonic Antigen Reviewed date:11/24/2024 05:31:30 PM Interpretation: Performing Lab:[facility], [address] [place] [phone] Notes/Report: Carcinoembryonic Antigen 4.40 CEA Reference Range: 93.4% Non-Smokers = 0.0-3.0 ng/mL 95.6% Smokers = 0.0-5.0 ng/mL CEA Methodology: Loco Alinity i Chemiluminescent Microparticle Immunoassay (CMIA) CEA testing can have significant value in monitoring of patients with diagnosed malignancies in whom changing concentrations of CEA are observed. Values obtained with different assay methods cannot be used interchangeably. CT abdomen pelvis w con Reviewed date:12/06/2024 12:28:50 PM Interpretation: Performing Lab: Notes/Report: [address] [address] [address] Scan Report Signed Patient: Tiffanie Friedman MR#: [id number] : 1945 Acct:[id number] Age/Sex: 79 / F ADM Date: 12/05/24 Loc: HO.CT Attending Dr: Mckayla Wang MD Ordering Physician: Mckayla Wang MD Date of Service: 12/05/24 Procedure(s): CT abdomen pelvis w IV con Accession Number(s): [id number] cc: Kendell Vaughn MD; Mckayla Wang MD Report Number: [id number]: Total DLP = 186.00 mGy-cm CLINICAL HISTORY: Colon cancer, surveillance CT abdomen and pelvis with contrast Comparison: CT/[place] - CT ABDOMEN PELVIS WO IV CON - 12/03/23 09:02 EST Findings: There is interstitial scarring at the lung bases. No consolidation or pleural effusion. Multiple peripelvic cysts within the left kidney. Mild hydronephrosis of the bilateral kidneys. No ureteral calculus. Remaining abdominal organs are unremarkable. There are no calcified gallstones. Postsurgical change of the proximal colon. Severe fecal retention within the distal colon. No bowel edema or obstruction. A pessary is present. Unremarkable uterus. Poorly distended urinary bladder. Prior appendectomy. No acute fracture. IMPRESSION: 1. There is mild hydronephrosis of the bilateral kidneys. 2. Severe fecal retention within the distal colon. This document has been electronically signed by: Fabi Oliveira MD on 12/05/2024 15:23:40 Dictated By: Fabi Oliveira MD Signed By: <Electronically signed by Fabi Oliveira MD in OV> 12/05/24 1524 DD/ 1523 TD/TT: 12/05/24 1523 Executive Vice President Business Development: [place] [address] [address] Scan Report Signed Patient: Tiffanie Friedman MR#: [id number] : 1945 Acct:[id number] Age/Sex: 79 / F ADM Date: 12/05/24 Loc: HO.CT Attending Dr: Mckayla Wang MD Ordering Physician: Mckayla Wang MD Date of Service: 12/05/24 Procedure(s): CT abdomen pelvis w IV con Accession Number(s): [id number] cc: Kendell Vaughn MD; Mckayla Wang MD Report Number: [id number]: Total DLP = 186.00 mGy-cm CLINICAL HISTORY: Colon cancer, surveillance CT abdomen and pelvi s with contrast Comparison: CT/[place] - CT ABDOMEN PELVIS WO IV CON - 12/03/23 09:02 EST Findings: There is interstitia l scarring at the lung bases. No consolidation or pleural effusion. Multiple peripelvic cysts within the left kidney. Mild hydronephrosis of the bilateral kidney s. No ureteral calculus. Remaining abdominal organs are unremarkable. There are no calcified gallstones. Postsurgical change of the proximal colon. Severe fecal retention within the distal colon. No bowel edema or obstruction. A pessary is present . Unremarkable uterus. Poorly distended urinary bladder. Prior appendectomy. No acute fracture. IMPRESSION: 1. There is mild hydronephrosis of the bilateral kidneys. 2. Severe fecal retention within the distal colon. This document has be en electronically signed by: Fabi Oliveira MD on 12/05/2024 15:23:40 Dictated By: Fabi Oliveira MD Signed By: <Electronically signed by Fabi Oliveira MD in OV> 12/05/24 1524 DD/ 1523 TD/TT: 12/05/24 1523 Executive Vice President Business Development: Urine Culture Reviewed date:02/11/2025 02:05:42 PM Interpretation: Performing Lab:[facility], [address] [place] [phone] Notes/Report: O:ESCCOL Escherichia coli Urine Culture Quant Urine Culture 50,000 to 100,000 cfu/mL Ampicillin >=32 Cefazolin (Urine) 8 Cefepime <=0.12 Ceftriaxone <=0.25 Ciprofloxacin <=0.06 Gentamicin >=16 Nitrofurantoin <=16 Trimethoprim/Sulfamethox azole >=320 Reason For Referral No Information Medications Medication SIG (Take, Route, Frequency, Duration) Notes Start Date End Date Status PriLOSEC OTC 20 MG 2 tablet 30 minutes before morning meal Orally Once a day Not-Taking Ibuprofen 800 MG 1 TABLET ORALLY THRE E TIMES A DAY for 30 Not-Taking Cephalexin 500 MG 1 capsule Orally twi ce a dayt for 5 days 02/09/2025 Active Cranberry 405 MG 1 capsule with meals Orally Twice a day Active PARoxetine HCl 10 MG TAKE 1 TABLET BY [facility] EVERY DAY IN THE MORNING for 90 Active Albuterol Sulfate HFA 108 (90 Base) MCG/ACT 2 puff as needed Inhalation every 4 hrs 02/16/2023 Active Omeprazole 20 MG 1 capsule 30 minutes before morning meal Orally Once a day Active Stool Softener 100 MG 1 tablet as needed Orally three times a day Active Vitamin D (Cholecalciferol) 25 MCG (1000 UT) 1 capsule Orally Once a day Active Calcium 600 MG 1 tablet with meals Orally once a day Active Vitamin C 500 MG as directed Orally Active Estradiol 0.1 MG/GM 1 application Vagina l Two times a Week Active Methenamine Hippurate 1 GM 1 tablet Orally Twice a day for 10 day(s) Not-Taking Ativan 0.5 MG 1 tablet as needed Orally Twice a day 06/15/2015 Not-Taking tiZANidine HCl 2 MG 1 tablet as needed Orally Three times a day Not-Rustam ing Immunizations Vaccine Route Administration Date Status Comme nts Flu Vaccine IM Intramuscular 07/11/2011 Administered Flu Vaccine IM Intramuscular 07/29/2012 Administered PPSV23 (Pnemovax) Unknown 03/07/2009 Administered Prevnar 13 IM Intramuscular 03/07/2013 Administered Flu Vaccine IM Intramuscular 07/22/2013 Administered Flu Vaccine Unknown 08/27/2014 Administered received at [facility] PPSV23 (Pnemovax) Unknown 08/27/2014 Administered recei erika at [facility] Fluarix Quadrivalent IM Intramuscular 08/09/2015 Administe red Fluarix Quadrivalent IM Intramuscular 08/09/2015 Administe red Fluarix Quadrivalent IM Intramuscular 07/27/2016 Administe red Fluarix Quadrivalent IM Intramuscular 07/30/2017 Administe red TDaP Unknown 01/14/2018 Administered pt was given the vaccine at [facility] in [place] on [facility] Fluarix Quadrivalent IM Intramuscular 07/29/2018 Administe red Fluarix Quadrivalent Unknown 07/11/2019 Administered S Shingrix Unknown 07/11/2019 Administered [facility] #1 PPSV23 (Pnemovax) IM Intramuscular 12/15/2019 Administered Shingrix IM Intramuscular 10/20/2019 Administered Given at [facility]. Shingles Unknown 10/20/2019 Administered Influenza High Dose IM Intramuscular 07/16/2020 Administer ed Covid Vaccine Unknown 12/16/2020 Administered Pfizer Covid Vaccine Unknown 01/06/2021 Administered Pfizer SARS-COV-2 Pfizer Unknown 08/08/2021 Administered Bassam matos'jignesh Influenza High Dose IM Intramuscular 08/09/2021 Administer ed SARS-COV-2 Pfizer Unknown 08/08/2021 Administered Influenza High Dose Unknown 08/08/2021 Administered Bella sheth SARS-COV-2 Pfizer Unknown 03/24/2022 Administered Influenza High Dose IM Intramuscular 08/17/2022 Administer ed Influenza High Dose IM Intramuscular 07/20/2023 Administer ed Influenza High Dose IM Intramuscular 07/31/2024 Administer ed Social History Tobacco Use: Social History Observation [...] Never (0 point) Points 1 Interpretation Negative Problems Problem Type SNOMED Code ICD Code Onset Dates Problem Status W/U Status Risk Notes Problem 88007860 Age-related osteoporosis without current pathological fracture (M81.0) Active confirmed Problem 659848367 Neuropathy (G62.9) Active confirmed Problem 56605667 Restless leg syn drome (G25.81) Active confirmed Problem 256229516 Reflux esophagit is (K21.00) Active confirmed Problem 07685575 Vitamin D defici ency (E55.9) Active confirmed Problem 59673774 Anxiety (F41.9) Active confirmed Problem Dysphagia (29418413) Dysphagia (R13.10) Active confirmed Problem 473897758 Malignant neopla sm of hepatic flexure (C18.3) Active confirmed Problem 009858300 Other headache syndrome (G44.89) Active confirmed Problem 89516883 Irritable bowel syndrome without diarrhea (K58.9) Active confirmed Problem 456811121 Gastroesophageal reflux disease without esophagitis (K21.9) Active confirmed Problem 24998791 Osteoporosis (M81.0) Active confirmed Problem 927204033 Abnormal mammogr am of left breast (R92.8) Active confirmed Problem 879202171 PAC (premature a trial contraction) (I49.1) Active confirmed Problem 90339101 Oropharyngeal dysphagia (R13.12) Active confirmed Problem 42539383 Iron deficiency anemia, unspecified iron deficiency anemia type (D50.9) Active confirmed Problem 60746886835051 Pharyngeal dysph agia (R13.13) Active confirmed Problem 702825796 Vaginal bleeding (N93.9) Active confirmed Problem 66908473 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) Active confirmed Problem 783506448 Pure hypercholesterolemia (E78.00) Active confirmed Problem 724845488 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) Active confirmed Problem 94871996 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) Active confirme d Problem Abnormal chest x ray (R93.89) Active confirmed Problem 62455111 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 confirmed Problem 373939739 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) Active confirmed Problem 03850881 Senile cataract, unspecified age-related cataract type, unspecified laterality (H25.9) Active confirmed Vital Signs Blood pressure diastolic 64 mm Hg 02/09/2025 mahad ght is up 4 pounds since 09-05-24 Height 59.5 in 02/09/2025 weight is up 4 pounds since 09-05-24 Blood pressure systolic 112 mm Hg 02/09/2025 weig ht is up 4 pounds since 09-05-24 Weight 94 lbs 02/09/2025 weight is up 4 pounds since 09-05-24 BMI 18.67 kg/m2 02/09/2025 weight is up 4 pounds since 09-05-24 Encounters Encounter Location Date Provider Diagnosis Kendell Vaughn MD [address] [place] [id number] 02/23/2025 Kendell Vaughn UTI (urinary tract infection) N39.0 Kendell Vaughn MD [address] [place] [id number] 02/29/2024 Kendell Vaughn Spinal stenosis of lumbosacral region M48.07 and Iron deficiency E61.1 Kendell Vaughn MD [address] [place] [id number] 04/21/2024 Kendell Vaughn Pre-op evaluation Z0 1.818 and Senile cataract, unspecified age-related cataract type, unspecified laterality H25.9 Kendell Vaughn MD [address] [place] [id number] 07/04/2024 Kendell Vaughn Palpitations R00.2 a nd Pulmonary fibrosis J84.10 Kendell Vaughn MD [address] [place] [address] [id number] 07/31/2024 Kendell Vaughn Palpitations R00.2 ; 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 and Encounter for immunization Z23 Kendell Vaughn MD [address] [place] [address] [phone] 08/26/2024 Kendell Vaughn Vitamin D deficiency E55.9 ; Pure hypercholesterolemia E78.00 and Iron deficiency anemia, unspecified iron deficiency anemia type D50.9 Kendell Vaughn MD [address] [place] [address] [phone] 09/05/2024 Kendell Vaughn Osteoporosis M81.0 ; Pure hypercholesterolemia E78.00 ; Vitamin D deficiency E55.9 ; Reflux esophagitis K21.00 and Depression screening Z13.31 Kendell Vaughn MD [address] [place] [address] [phone] 02/09/2025 Kendell Vaughn UTI (urinary tract infection) N39.0 Kendell Vaughn MD [address] [place] [address] [phone] 04/21/2024 Kendell Vaughn MD [address] [place] [address] [phone] 09/01/2024 Kendell Vaughn Osteoporosis M81.0 Assessments Encounter Date Diagnosis (ICD Code) Assessment Notes Treatment Notes Treatment Clinical Notes Section Notes 02/23/2025 UTI (urinary tract infection) (ICD-10 - N39.0) 02/29/2024 Spinal stenosis of lumbosacral region (ICD-10 - M48.07) is not in neeed of treatment. will observe. went over the results of the mri 02/29/2024 Iron deficiency (ICD -10 - E61.1) doing well on no iron 04/21/2024 Pre-op evaluation (ICD-10 - Z01.818) patient healthy. no need for any further evaluation prior to the upcoming surgery 04/21/2024 Senile cataract, unspecified age-related cataract type, unspecified laterality (ICD-10 - H25.9) 07/04/2024 Palpitations (ICD-10 - R00.2) am concerned that it could be atrial fib in her age group. has been occuring daily so a monitor shoule be able to document it. also told her to take her pulse when she gets it. 07/04/2024 Pulmonary fibrosis (ICD-10 - J84.10) she always has a few wheezes and it seems most likely her shortness of breath is related to the fibrosis 07/31/2024 Palpitations (ICD-10 - R00.2) no significant problems on holter, will continue to monitor 07/31/2024 Fibrosis lung (ICD-1 0 - J84.10) seeing pulmonary 08/26/2024 Vitamin D deficiency (ICD-10 - E55.9) 08/26/2024 Pure hypercholesterolemia (ICD-10 - E78.00) 09/05/2024 Osteoporosis (ICD-10 - M81.0) 09/05/2024 Pure hypercholesterolemia (ICD-10 - E78.00) 02/09/2025 UTI (urinary tract infection) (ICD-10 - N39.0) patient verbalized understanding of medication and directions for use 09/01/2024 Osteoporosis (ICD-10 - M81.0) 07/31/2024 Encounter for immunization (ICD-10 - Z23) flu vaccine administered 08/26/2024 Iron deficiency anem ia, unspecified iron deficiency anemia type (ICD-10 - D50.9) 09/05/2024 Vitamin D deficiency (ICD-10 - E55.9) 09/05/2024 Reflux esophagitis (ICD-10 - K21.00) 09/05/2024 Depression screening (ICD-10 - Z13.31) negative screen Plan Of Treatment Pending Test Test Name Order Date Electrocardiogram (EKG) 06/15/2016 Electrocardiogram (EKG) 07/04/2024 Electrocardiogram (EKG) 05/28/2015 MRI CERVICAL SPINE NO CONTRAST MRI LUMBAR SPINE NO CONTRAST 11/30/2023 NUC WHOLE BODY SCAN BONE 10/19/2023 NUC WHOLE BODY SCAN BONE 11/09/2020 XR CERVICAL SPINE 2-3 VIEWS 06/20/2011 XR CERVICAL SPINE 4+ VIEWS 11/02/2020 XR CHEST 2 VIEW PA & LAT 10/10/2022 XR CHEST 2 VIEW PA & LAT 08/14/2022 XR CHEST 2 VIEW PA & LAT 02/01/2012 BONE DENSITY DEXA 08/09/2021 CA stress test 01/16/2023 ECG holter monitor 48 hour 07/04/2024 FL barium swallow 02/16/2022 FL barium swallow modified 01/12/2023 FL barium swallow modified 08/14/2022 MM tomosynthesis diagnostic BI XR DEXA axial skeleton 10/30/2023 XR hip LT min 2V 11/29/2023 XR lumbar spine 2-3V 11/29/2023 XR cervical spine 3V 11/29/2023 UA ClnCatch+Micro w/rflx Cult 02/23/2025 Next Appt Details Provider Name:Kendell Cadena ier, 03/05/2025 10:00:00 AM, [address] [place] [address], [address], [phone], Provider Name:Kendell Cadena ier, 09/03/2025 07:15:00 AM, [address] [place] [address], [address], [phone], Provider Name:Kendell Cadena ier, 09/10/2025 08:30:00 AM, [address] [place] [address], [address], [phone], Insurance Providers Payer Name Payer Address Payer Phone Subscriber Number Group Number Insured Name Patient Relationship to Insured Coverage Start Date Coverage End Date MED[employer] [address] [place] [address] [id number] Tiffanie Catalan Self - patient is the insured [employer] [address] [place], [place] [id number] Tiffanie Catalan Self - patient is the insured Medical (General) History Medical History History ICD Code colonoscopy 10/03/2013 and 2 005 negative - no further colonoscopies indicated per Dr. Rojo:12/04/23 colonoscopy pending path pap smear - negative (10/20/2013) blood on underwear. had cysto tizanidine is zanaflex Surgical History Surgery Date(Month/Year) Hammertoe, right fifth toe (Dr. Mcfarlane)
--- OUTSIDE RECORDS SUMMARY | 2025-02-23 11:34 | XMS_ITS ---
Author Organization Kendell Vaughn MD Address [address] [place] [phone] Care Team Providers Care Fruit Or Nut Farmworker Name Role Phone Kendell Vaughn Primary Care Provider [phone] REASON FOR VISIT After Care U/A Encounters Encounter Location Date Provider Diagnosis Kendell Vaughn MD [address] [place] [phone] 02/23/2025 Kendell Vaughn Plan Of Treatment Next Appt Details Provider Name:Kendell rodriguez, 03/05/2025 10:00:00 AM, [address] [facility], [address], [place], [place], [phone], Provider Name:Kendell rodriguez, 09/03/2025 07:15:00 AM, [address], [address], [place], [phone], Provider Name:Kendell Underwood Surinder rodriguez, 09/10/2025 08:30:00 AM, [address], [address], [place], [phone], Progress Notes * Tiffanie MCNAMARA MDOB:12/1944 (79 yo F)Acc No.[id number]:02/23/2025 Progress Note Patient:?Tiffanie MCNAMARA Provider:?Kendell Vaughn MD :1945???Age:79 Y???Sex:Female D ate:02/23/2025 Address:[address] [place], [place] [phone] Subjective: * Chief Complaints: * ???1. After Care U/A. * Medical History:? Objective: * Vitals:? Assessment: Plan: * Treatment: * * The named appointment provid er may or may not be the originator of this progress note, and it is not deemed complete until electronically signed by the appointment provider. Sign off status: Pending * Provider:?Kendell Vaughn MD Date:?0 02/23/2025 Generated for Devorah da silva/Chapito/eTmonikasmitting on:?02/23/2025 11:33 AM EDT
--- OUTSIDE RECORDS SUMMARY | 2025-02-23 11:34 | XMS_ITS ---
Author Organization [facility] Address [address] [place] [phone] Care Team Providers Care Automatic Mold Sander Name Role Phone Kendell Vaughn MD Primary Care Provider Jono Gamboa [phone] REASON FOR VISIT colon screening Encounters Encounter Location Date Provider Diagnosis [facility] [address] [place] [phone] 01/07/2025 Jono Rojo Plan Of Treatment Next Appt Details Provider Name:Jono Rojo , 03/16/2025 08:20:00 AM, [address] [place] [address] , [place], [place], [phone], Progress Notes * EMIR MCNAMARAEDOB:[birth year] (79 yo F)Acc No.[id number]:01/07/2025 Progress Notes Patient:?KRIS MCNAMARA Provider:?Jono Rojo MD :1945???Age:79 Y???Sex:Female D ate:01/07/2025 Address:[address] [place] [address], [id number] Pcp:Kendell Vaughn MD Subjective: * Chief Complaints: [...] Date:? 025 Generated for Devorah da silva/Chapito/Erick on:?02/23/2025 11:33 AM EDT
--- OUTSIDE RECORDS SUMMARY | 2025-02-23 11:35 | XMS_ITS ---
Author Organization Kendell Vaughn MD Address [address] [place], [place] [phone] Care Team Providers Care Museum Registrar Name Role Phone Kendell Vaguhn Primary Care Provider Allergies Allergen (clinical drug ingredient) Drug/Non Drug Allergy documented on EMR Reaction Allergy Type Onset Date Status codeine Codeine Sulfate gi upset Drug Allergy A ctive sulfamethoxazole / trimethoprim Bactrim DS heart palpitations Drug Allergy Active erythromycin erythromycin (uncoded) gi upset Allergy Active Results Component Value Reference Range Notes UA ClnCatch+Micro w/rflx Cul t Reviewed date:02/10/2025 09:39:40 AM Interpretation: Performing Lab:[facility], [address] [place] [phone] Notes/Report: Urine, Clean Catch Color Urine Yellow Appearance Urine Cloudy PH 5.5 5.0-9.0 Glucose Urine UA Negative Negative mg/dL Urine Blood Large (3+) Negative Specific [place] - Urine 1.010 1.005-1.025 Urine Protein 30 [...] MO UTH EVERY DAY IN THE MORNING for 90 [...] Location Date Provider Diagnosis Kendell Vaughn MD [address] [place] [phone] 02/09/2025 Kendell Vaughn UTI (urinary tract infection) [...] understanding of medication and directions for use Next Appt Details Provider Name:Kendell rodriguez, 03/05/2025 10:00:00 AM, [address] [place] [address], [address], [phone], Provider Name:Kendell rodriguez, 09/03/2025 07:15:00 AM, [address] [place] [address], [phone], Provider Name:Kendell rodriguez, 09/10/2025 08:30:00 AM, [address] [place] [address], [phone], Progress Notes * Tiffanie MCNAMARA MDOB:12/1944 (79 yo F)Acc No.[id number]:02/09/2025 Progress Notes Patient:?Tiffanie MCNAMARA Provider:?Kendell Vaughn MD :1945???Age:79 Y???Sex:Female D ate:02/09/2025 Address:[address] [place] [phone] Subjective: * Chief Complaints: * ???UTI * HPI: ???Symptom(s):?patient is a 79 yo female here as emergency for uti.burning and frequency. * ROS:?General/Constitutional:?Denies?Chills.?Denies?Fatigue.?Denies?Fever.?Denies?Headache.?ENT:?Denies?Sore throat.?Respiratory:?Denies?Cough.?Denies?Shortness of breath at rest.?Denies?Shortness of breath with exertion.?Gastrointestinal:?Denies?Diarrhea.?Denies?Nausea.?Genitourinary:?Admits?Abdominal pain/swelling.?Admits?Frequent urination.?Admits?Pain in lower back.?Admits?Painful urination.? * Medical History:? * Surgical History:? * Hospitalization/Major Diagno stic Procedure:? * Medications:?TakingVitamin C 500 MG Capsule as directed Orally Albuterol Sulfate HFA 108 (90 Base) MCG/ACT Aerosol Solution 2 puff as needed Inhalation every 4 hrs Stool Softener 100 MG Tablet 1 tablet as needed Orally three times a day Cranberry 405 MG Capsule 1 capsule with meals Orally Twice a day PARoxetine HCl 10 MG Tablet TAKE 1 TABLET BY MOUTH EVERY DAY IN THE MORNING Calcium 600 MG Tablet 1 tablet with meals Orally once a day Estradiol 0.1 MG/GM Cream 1 application Vaginal Two times a Week Omeprazole 20 MG Capsule Delayed Release 1 capsule 30 minutes before morning meal Orally Once a day Vitamin D (Cholecalciferol) 25 MCG (1000 UT) Capsule 1 capsule Orally Once a day Taking Vitamin C 500 MG Capsule as directed Orally Taking Albuterol Sulfate HFA 108 (90 Base) MCG/ACT Aerosol Solution 2 puff as needed Inhalation every 4 hrs Taking Stool Softener 100 MG Tablet 1 tablet as needed Orally three times a day Taking Cranberry 405 MG Capsule 1 capsule with meals Orally Twice a day Taking PARoxetine HCl 10 MG Tablet TAKE 1 TABLET BY MOUTH EVERY DAY IN THE MORNING Taking Calcium 600 MG Tablet 1 tablet with meals Orally once a day Taking Estradiol 0.1 MG/GM Cream 1 application Vaginal Two times a Week Taking Omeprazole 20 MG Capsule Delayed Release 1 capsule 30 minutes before morning meal Orally Once a day Taking Vitamin D (Cholecalciferol) 25 MCG (1000 UT) Capsule 1 capsule Orally Once a day Not-Taking/PRNPriLOSEC OTC 20 MG Tablet Delayed Release 2 tablet 30 minutes before morning meal Orally Once a day Ibuprofen 800 MG Tablet 1 TABLET ORALLY THREE TIMES A DAY tiZANidine HCl 2 MG Tablet 1 tablet as needed Orally Three times a day Methenamine Hippurate 1 GM Tablet 1 tablet Orally Twice a day Ativan 0.5 MG Tablet 1 tablet as needed Orally Twice a day Not-Taking/PRN PriLOSEC OTC 20 MG Tablet Delayed Release 2 tablet 30 minutes before morning meal Orally Once a day Not-Taking/PRN Ibuprofen 800 MG Tablet 1 TABLET ORALLY THREE TIMES A DAY Not-Taking/PRN tiZANidine HCl 2 MG Tablet 1 tablet as needed Orally Three times a day Not-Taking/PRN Methenamine Hippurate 1 GM Tablet 1 tablet Orally Twice a day Not-Taking/PRN Ativan 0.5 MG Tablet 1 tablet as needed Orally Twice a day * Allergies:?erythromycin: gi upsetCodeine Sulfate: gi upsetBactrim DS: heart palpitationsyes[Allergies Verified] Objective: * Vitals:?Ht: 59.5, Wt: 94, BM I:18.67, BP:112/64, Wt-k.64. weight is up 4 pounds since 09-05-24. * Examination: ???General Examination: ?GENERAL APPEARANCE:?well developed, well nourished.?HEAD:?normocephalic.?SKIN:?good turgor.?HEART:?regular rate and rhythm, no murmurs, rubs, gallops, no murmurs, rubs, gallops.?LUNGS:?no wheezes, rales, rhonchi, good air movement, clear to auscultation bilaterally.?ABDOMEN:?no guarding or rigidity.?BACK:?no costovertebral angle tenderness.? Assessment: * Assessment: 1.?UTI (urinary tract infect ion) - N39.0 (Primary)??? Plan: * Treatment: * Procedure Codes:? * * Sign off status: Completed true * Provider:?Kendell Vaughn MD Date:?0 02/09/2025 Generated for Devorah da silva/Chapito/Carlyitting on:?02/23/2025 11:34 AM EDT History and Physical Notes * [...]
--- OUTSIDE RECORDS SUMMARY | 2025-02-23 11:35 | XMS_ITS | Patient Health Record ---
Author Organization [facility] Address [address] [place] [address] Care Team Providers Care Land Commissioner Name Role Phone Roderick GARCIA, Kendell Primary Care Provider Jono Gamboa Unavailable [phone] Allergies Allergen (clinical drug ingredient) Drug/Non Drug [...] Status Risk Notes Problem Iron deficiency anemia (56541623) Iron deficiency anemia (D50.9) Active confirmed Problem 906021852 Gastroesophageal reflux disease, esophagitis presence not specified (K21.9) Active confirmed Problem 47893265 Constipation, unspecified constipation type (K59.00) Active confirmed Problem History of malignant neoplasm of colon (629782105) Personal history of colon cancer (Z85.038) Active confirmed Problem Chronic constipation (489715751) Chronic constipation (K59.09) Active confirmed Problem 46049874 Esophageal dysphagia (R13.19) Active confirmed Problem Primary adenocarcinoma of ascending colon (026069037749363) Primary adenocarcinoma of ascending colon (C18.2) Active confirmed Vital Signs Blood pressure diastolic 00 mm Hg 11/25/2024 Height 58.25 in 11/25/2024 Blood pressure systolic 00 mm Hg 11/25/2024 Weight 91 lbs 11/25/2024 BMI 18.85 kg/m2 11/25/2024 Encounters Encounter Location Date Provider Diagnosis [facility] [address] [place] [phone] 11/25/2024 Jono Rojo Personal history of colon cancer Z85.038 ; Chronic constipation K59.09 and Gastroesophageal reflux disease, esophagitis presence not specified K21.9 [facility] [address] [place] [address] 01/08/2025 Jono Rojo Assessments Encounter Date Diagnosis [...] Provider Name:Jono Rojo , 03/16/2025 08:20:00 AM, [address] [place] [address] , [place], [place], [phone], Insurance Providers Payer Name Payer Address Payer Phone Subscriber Number Group Number Insured Name Patient Relationship to Insured Coverage Start Date Coverage End Date MEDICARE OF [place] [address] [facility] [id number] TIFFANIE WATT Self - patient is the insured [employer] ATT[employer] CLAIMS [address] [place] [address] [phone] [id number] TIFFANIE WATT Self - patient is the insured Medical (General) History Medical History History ICD Code Denies [place],DM,CVA,renal disease Colonoscopy 11-17-2004--internal hemorrhoi ds; neg. flex [...]
--- OUTSIDE RECORDS SUMMARY | 2025-02-23 11:35 | XMS_ITS ---
Author Organization Kendell Vaughn MD Address [address] [place], [place] [phone] Care Team Providers Care Finish Sander Name Role Phone Kendell Vaughn Primary Care Provider Results Component Value Reference Range Notes UA ClnCatch+Micro w/rflx Cul t (Not yet reviewed by provider) Interpretation: Performing Lab:[facility], [address] [place] [phone] Notes/Report: Urine, Clean Catch Color Urine Yellow Appearance Urine Turbid PH 8.0 5.0-9.0 Glucose Urine UA Negative Negative mg/dL Urine Blood Negative Negative Specific [place] - Urine 1.015 1.005-1.025 Urine Protein Negative Neg-Trace mg/dL Urine Ketones Negative Negative mg/dL Nitrite Urine Negative Negative Leukocyte Esterase Urine Large (3+) Negative RBC Urine 0-2 0-2 /HPF WBC Urine 0-5 0-5 /HPF Squamous Epithelial Cell Urine 6-10 0-2 /HPF Bacteria Urine None Seen None Seen Hyaline Casts Urine 0-2 0-2 /LPF REASON FOR VISIT post care urine Encounters Encounter Location Date Provider Diagnosis Kendell Vaughn MD [address] [place] [phone] 02/23/2025 Kendell Vaughn UTI (urinary tract infection) N39.0 Assessments Encounter Date Diagnosis (ICD Code) Assessment Notes Treatment Notes Treatment Clinical Notes Section Notes 02/23/2025 UTI (urinary tract infection) (ICD-10 - N39.0) Plan Of Treatment Pending Test Test Name Order Date UA ClnCatch+Micro w/rflx Cult 02/23/2025 Next Appt Details Provider Name:Kendell rodriguez, 03/05/2025 10:00:00 AM, [address] [place] [address], [phone], Provider Name:Kendell rodriguez, 09/03/2025 07:15:00 AM, [address] [place] [address], [phone], Provider Name:Kendell rodriguez, 09/10/2025 08:30:00 AM, [address] [place] [address], [address], [phone], Progress Notes * Tiffanie MCNAMARA MDOB:12/1944 (79 yo F)Acc No.[id number]:02/23/2025 Progress Note Patient:?Tiffanie MCNAMARA Provider:?Kendell Vaughn MD :1945???Age:79 Y???Sex:Female D ate:02/23/2025 Address:[address] [place], [place] [phone] Subjective: * Chief Complaints: * ???1. Post care urine. * Medical History:? Objective: * Vitals:? Assessment: * Assessment: 1.?UTI (urinary tract infect ion) - N39.0??? Plan: * Treatment: * * The named appointment provid er may or may not be the originator of this progress note, and it is not deemed complete until electronically signed by the appointment provider. Sign off status: Pending * Provider:?Kendell Vaughn MD Date:?0 02/23/2025 Generated for Devorah da silva/Chapito/Carlyitting on:?02/23/2025 11:35 AM EDT
--- OUTSIDE RECORDS SUMMARY | 2025-02-23 11:35 | XMS_ITS ---
Author Organization [facility] Address [address] [place] [address] Care Team Providers Care Nuclear Medicine Tech Name Role Phone Roderick GARCIA, Kendell Primary Care Provider Jono Gamboa Unavailable [phone] Allergies Allergen (clinical drug ingredient) Drug/Non Drug [...] Problem History of malignant neoplasm of colon (299966092) Personal history of colon cancer (Z85.038) Active confirmed Problem Chronic constipation (791446388) Chronic constipation (K59.09) Active confirmed Vital Signs Blood pressure systolic 00 mm Hg 11/25/19 25 Blood pressure diastolic 00 mm Hg 025 Height 58.25 in 11/25/2024 Weight 91 lbs 11/25/2024 BMI 18.85 kg/m2 11/25/2024 Encounters Encounter Location Date Provider Diagnosis [facility] [address] [place] [phone] 11/25/2024 Jono Rojo Personal history of colon [...] Provider Name:Jono Rojo , 03/16/2025 08:20:00 AM, [address] [place] [address], [phone], Progress Notes * EMIR MCNAMARAEDOB:[birth year] (79 yo F)Acc No.[id number]:11/25/2024 Progress Notes Patient:?TIFFANIE MCNAMARA Provider:?Jono Rojo MD :1945???Age:79 Y???Sex:Female D ate:11/25/2024 Address:[address] [place], [place] [phone] Pcp:Kendell Vaughn MD Subjective: * Chief Complaints: [...] History:?Father: dece ased 65 yrs, lung cancer/fire chief.?Mother: 95 yrs, diagnosed with Heart disease.? No [...] for 11/25/2024) * Procedure Codes:?1036F TOBAC CO NON-FRTPO0521 BP SCR NOT PRFRM REC REASON NOS [...] MD Date:? 025 Generated for Donavani rekha/Chapito/Erick on:?02/23/2025 11:34 AM EDT History and Physical [...]
== END 2025-02-23 07:31 | disposition home or self-care (01) ==
LOC: HO.LNP 07:30
PROVIDERS: Visit Provider Internal Medicine
DX: N39.0 Urinary tract infection, site not specified (principal)
CPT/HCPCS: 81001; 87086

== ENCOUNTER 2025-03-05 13:52 | Outpatient (REF) | payer MEDICARE, SELFPAY ==
[2025-03-05 14:03] LABS: Appearance Urine Clear; Color Urine Yellow; Glucose Urine UA Negative (Negative); Leukocyte Esterase Urine Large (3+) (Negative); Nitrite Urine Negative (Negative); PH 6.5 (5.0-9.0); Specific Gravity - Urine <= 1.005 (1.005-1.025); UMIC TRIGGER UA YES; Urine Blood Negative (Negative); Urine Ketones Negative (Negative); Urine Protein Negative (Neg-Trace)
[2025-03-05 14:06] LABS: Bacteria Urine None Seen (None Seen); Hyaline Casts Urine 0-2 /LPF (0-2); RBC Urine 0-2 /HPF (0-2); Squamous Epithelial Cell Urine 0-2 /HPF (0-2)
--- OUTSIDE RECORDS SUMMARY | 2025-03-05 16:19 | XMS_ITS | Clinical Summary ---
Author Organization [facility] Address [address] [place] [address] Care Team Providers Care Mitigation Supervisor Name Role Phone Kendell Vaughn MD Primary Care Provider [phone] Social History Tobacco Use Types Packs/Day Years [...] age to complete this topic Care Teams Mitigation Supervisor Relationship Specialty Start Date End Date Kendell Vaughn MD [address] [place] [address] PCP - General Internal Medicine 04/26/21
== END 2025-03-05 13:53 | disposition home or self-care (01) ==
LOC: HO.LNP 13:52
PROVIDERS: Visit Provider Internal Medicine
DX: N39.0 Urinary tract infection, site not specified (principal)
CPT/HCPCS: 81001; 87086

== ENCOUNTER 2025-03-10 13:25 | Outpatient (REF) | payer MEDICARE, SELFPAY ==
--- NOTE | ~2025-03-10 | XR_ITS ---
EXAMINATION: XR LUMBOSACRAL SPINE CLINICAL INFORMATION: LOWER BACK PAIN COMPARISON: 12/20/2023. Correlation made with CT abdomen and pelvis 12/05/2024. TECHNIQUE: Three views of the lumbosacral spine. FINDINGS: There is osteopenia diffusely. There is a right convex mild scoliosis. There is straightening of the normal lordosis. There is no fracture or suspicious bone lesion. There is mild chronic appearing concavity to the superior endplate of L1. No additional compression deformities. There is a minimal 3 mm degenerative retrolisthesis of L1 on L2, and a 4 mm degenerative anterolisthesis of L3 on L4. There is a trace anterolisthesis of L4 on L5. Alignment is otherwise anatomic. Severe multilevel disc degeneration is present with disc vacuum phenomenon at all levels. Multilevel severe facet degeneration is present throughout the lumbar region. Soft tissues demonstrate chain anastomotic atif overlying the superior right iliac crest. Pessary device within the pelvis. XR/XR lumbar spine 2-3V IMPRESSION: 1. Diffuse osteopenia. 2. Chronic appearing superior endplate mild compression deformity of L1. 3. Mild right convex scoliosis, and advanced multilevel degenerative spondylosis. Electronically signed by: Brennan Garcia MD 03/12/2025 01:48 PM EDT
--- OUTSIDE RECORDS SUMMARY | 2025-03-10 15:30 | XMS_ITS | Clinical Summary ---
Author Organization [facility] Address [address] [place] [address] Care Team Providers Care Power Press Supervisor Name Role Phone Kendell Vaughn MD Primary Care Provider [phone] Social History Tobacco Use Types Packs/Day Years [...] age to complete this topic Care Teams Power Press Supervisor Relationship Specialty Start Date End Date Kendell Vaughn MD [address] [place] [address] PCP - General Internal Medicine 04/26/21
== END 2025-03-10 13:26 | disposition home or self-care (01) ==
LOC: HO.XRAY 13:25
PROVIDERS: PCP Internal Medicine; Visit Provider Internal Medicine
DX: M54.50 Low back pain, unspecified (principal)
CPT/HCPCS: 72100

== ENCOUNTER → 2025-03-10 13:48 | Outpatient (BNV) | payer MEDICARE, SELFPAY | PROVIDERS: PCP Internal Medicine; Visit Provider Radiology Diagnostic Radiology | DX: M85.88 Other specified disorders of bone density and structure, other site (principal) | CPT/HCPCS: 72100 ==

== ENCOUNTER → 2025-03-17 09:35 | Outpatient (REF) | payer MEDICARE, SELFPAY ==
--- NOTE | ~2025-03-17 | NM_ITS ---
EXAMINATION: NM BONE SCAN WHOLE BODY HISTORY: COMPRESSION FX OF FIFTH LUMBAR VERTEBRA. TECHNIQUE: A total body bone scan was performed following the intravenous administration of 20 mCi technetium 99m-MDP. COMPARISON: Comparison is made with the prior examination dated 11/27/2023. Correlation is also made with plain films of the lumbar spine dated 03/10/2025 and cervical spine dated 12/20/2023. FINDINGS: There is a new bandlike focus of increased uptake at the L1 vertebral level corresponding to the mild compression fracture seen on plain films. Additional uptake at the L3-4 level on the right is unchanged and corresponds to degenerative disc disease. Degenerative uptake in the cervical spine is unchanged. There is mild increased activity at the shoulders and sternoclavicular joints without change, compatible with osteoarthritis. The remainder of the visualized osseous structures demonstrate a normal distribution of activity. There is normal bilateral renal uptake. NM/NM bone scan whole body IMPRESSION: Bandlike increased uptake at the L1 vertebral level corresponding to the mild compression fracture seen on plain films. Additional degenerative uptake as described above, without change. Electronically signed by: Jono Jones MD 03/17/2025 03:02 PM EDT
--- OUTSIDE RECORDS SUMMARY | 2025-03-17 10:37 | XMS_ITS ---
Author Organization eKndell Vaughn MD Address [address] [place], [place] [id number] Care Team Providers Care Java [email or web address] Application Developer Name Role Phone Kendell Vaughn Primary Care Provider Results Component Value Reference Range Notes XR lumbar spine 2-3V Reviewed date:03/12/2025 05:04:38 PM Interpretation: Performing Lab: Notes/Report: [facility] [address] [place] [address] XRay Report Signed Patient: Tiffanie Mcnamara MR#: [id number] : 1945 Acct:[id number] Age/Sex: 79 / F ADM Date: 03/10/25 Loc: HO.XRAY Attending Dr: Kendell Vaughn MD Ordering Physician: Kendell Vaughn MD Date of Service: 03/10/25 Procedure(s): XR lumbar spine 2-3V Accession Number(s): [id number] cc: Kendell Vaughn MD EXAMINATION: XR LUMBOSACRAL SPINE CLINICAL INFORMATION: LOWER BACK PAIN COMPARISON: 12/20/2023. Correlation made with CT abdomen and pelvis 12/05/2024. TECHNIQUE: Three views of the lumbosacral spine. FINDINGS: There is osteopenia diffusely. There is a right convex mild scoliosis. There is straightening of the normal lordosis. There is no fracture or suspicious bone lesion. There is mild chronic appearing concavity to the superior endplate of L1. No additional compression deformities. There is a minimal 3 mm degenerative retrolisthesis of L1 on L2, and a 4 mm degenerative anterolisthesis of L3 on L4. There is a trace anterolisthesis of L4 on L5. Alignment is otherwise anatomic. Severe multilevel disc degeneration is present with disc vacuum phenomenon at all levels. Multilevel severe facet degeneration is present throughout the lumbar region. Soft tissues demonstrate chain anastomotic atif overlying the superior right iliac crest. Pessary device within the pelvis. XR/XR lumbar spine 2-3V IMPRESSION: 1. Diffuse osteopenia. 2. Chronic appearing superior endplate mild compression deformity of L1. 3. Mild right convex scoliosis, and advanced multilevel degenerative spondylosis. 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 Correlation made wit h CT abdomen and pelvis 12/05/2024. TECHNIQUE: Three views of the l umbosacral spine. FINDINGS: There is osteopenia diffusely. There is a right con vex mild scoliosis. There is straightening of the normal lordosis. There is no fracture or suspicious bone lesion. There is mild chronic appearing concavity to the superior endplate of L1. No additional compression deformities. There is a minimal 3 mm degenerative retrolisthesis of L1 on L2, and a 4 mm degenerative anterolisthesis of L3 on L4. There is a trace anterolisthesis of L4 on L5. Alignment is otherwise anatomic. Severe multilevel di sc degeneration is present with disc vacuum phenomenon at all le vels. Multilevel severe facet degeneration is present throughout t he lumbar region. Soft tissues demonst rate chain anastomotic atif overlying the superior right iliac crest. Pessary device withi n the pelvis. X R/XR lumbar spine 2-3V IMPRESSION: 1. Diffuse osteopenia. 2. Chronic appearing superior endplate mild compression deformity of L1. 3. Mild right convex scoliosis, and advanced multilevel degenerative spondylosis. 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-ray Encounters Encounter Location Date Provider Diagnosis Kendell Vaughn MD [address] [place] [address] [place] [phone] 03/10/2025 Kendell Vaughn Lumbar back pain M54.50 Assessments Encounter Date Diagnosis (ICD Code) Assessment Notes Treatment Notes Treatment Clinical Notes Section Notes 03/10/2025 Lumbar back pain (ICD-10 - M54.50) Plan Of Treatment Next Appt Details Provider Name:Kendell Cadena ier, 03/19/2025 09:15:00 AM, [address], [address] [facility], [place], [phone], Provider Name:Kendell rodriguez, 09/03/2025 07:15:00 AM, [address] [facility], [address] [facility], [place], [phone], Provider Name:Kendell Cadena ier, 09/10/2025 08:30:00 AM, [address] [facility], [address] [facility], [place], [phone], Progress Notes * Tiffanie MCNAMARA MDOB:12/1944 (79 yo F)Acc No.[id number]:03/10/2025 Patient:?Tiffanie MCNAMARA :1945???Age:79 Y???Sex:Female Address:[address] [place] [address] [place] [address] Subjective: * Chief Complaints: * ???X-ray * Medical History:? * Surgical History:? * Hospitalization/Major Diagno stic Procedure:? * Medications:? Objective: * Vitals:? * Physical Examination:? Assessment: * Assessment: 1.?Lumbar back pain - M54.50 ??? Plan: * Treatment: * Procedure Codes:? * true * Date:? Generated for Devorah da silva/Chapito/eTransmitting on:?03/17/2025 10:37 AM EDT
--- OUTSIDE RECORDS SUMMARY | 2025-03-17 10:37 | XMS_ITS | Patient Health Record ---
Author Organization Kendell Vaughn MD Address [address] [place] [address] [phone] Care Team Providers Care Instrument Worker Name Role Phone Kendell Vaughn Primary Care Provider Allergies Allergen (clinical drug ingredient) Drug/Non Drug Allergy documented on EMR Reaction Allergy Type Onset Date Status codeine Codeine Sulfate gi upset Drug Allergy A ctive sulfamethoxazole / trimethoprim Bactrim DS heart palpitations Drug Allergy Active erythromycin erythromycin (uncoded) gi upset Allergy Active Results Component Value Reference Range Notes UA ClnCatch+Micro w/rflx Cul t Reviewed date:02/24/2025 09:53:03 AM Interpretation: Performing Lab:[facility], [address] [place] [phone] Notes/Report: Urine, Clean Catch Color Urine Yellow Appearance Urine Turbid PH 8.0 5.0-9.0 Glucose Urine UA Negative Negative mg/dL Urine Blood Negative Negative Specific [place] - Urine 1.015 1.005-1.025 Urine Protein Negative [...] ff Reviewed date:08/27/2024 06:47:49 PM Interpretation: Performing Lab:[facility], [address] [place] [phone] Notes/Report: White Blood Count 5.2 4.8-10.8 X10*3/uL [...] NRBC Abs Auto 0.000 0.0-0.012 X10*3/uL Comprehensive [place]. Panel [facility] Reviewed date:08/28/2024 09:26:45 PM Interpretation: Performing Lab:[facility], [address] [place] [phone] Notes/Report: Sodium 139 135-145 mmol/L Potassium 4.2 3.3-5.1 mmol/L Chloride 103 96-108 mmol/L Carbon Dioxide 30 22-29 mmol/L Anion Gap 10 12-20 Blood Urea Nitrogen 17 9-16 mg/dL Creatinine 0.69 0.5-1.4 mg/dL Estimated Glomerular Filt Rate > 60 NOTE: For -Spanish individuals, multiply the result by 1.210. Chronic [...] PROFILE Reviewed date:08/27/2024 06:41:00 PM Interpretation: Performing Lab:[facility], [address] [place] [phone] Notes/Report: Iron 123 30-160 mcg/dL Total Iron Binding Capacity 284 228-428 mcg/dL Percent Iron Saturation 43 15-50 % Unsaturated Iron Binding 161 Lipid Panel Reviewed date:08/27/2024 06:41:40 PM Interpretation: Performing Lab:[facility], [address] [place] [phone] Notes/Report: Triglycerides 60 <150 mg/dL Desirable Triglyceride: [...] t Reviewed date:08/28/2024 09:35:22 PM Interpretation: Performing Lab:[facility], [address] [place] [phone] Notes/Report: Urine, Clean Catch Color Urine Yellow Appearance Urine Clear PH 7.5 5.0-9.0 Glucose Urine UA Negative Negative mg/dL Urine Blood Negative Negative Specific [place] - Urine 1.015 1.005-1.025 Urine Protein Negative [...] t Reviewed date:02/10/2025 09:39:40 AM Interpretation: Performing Lab:[facility], [address] [place] [phone] Notes/Report: Urine, Clean Catch Color Urine Yellow Appearance Urine Cloudy PH 5.5 5.0-9.0 Glucose Urine UA Negative Negative mg/dL Urine Blood Large (3+) Negative Specific [place] - Urine 1.010 1.005-1.025 Urine Protein 30 (1+) Neg-Trace mg/dL Urine Ketones Negative Negative mg/dL Nitrite Urine Negative Negative Leukocyte Esterase Urine Large (3+) Negative RBC Urine >20 0-2 /HPF WBC Urine >50 0-5 /HPF Squamous Epithelial Cell Urine 0-2 0-2 /HPF Bacteria Urine Trace None Seen Hyaline Casts Urine 0-2 0-2 /LPF Urinalysis and Microscopic Reviewed date:03/05/2025 04:52:46 PM Interpretation: Performing Lab:[address] [phone] Notes/Report: Color Urine Yellow Appearance Urine Clear PH 6.5 5.0-9.0 Glucose Urine UA Negative Negative mg/dL Urine Blood Negative Negative Specific [place] - Urine <= 1.005 1.005-1.025 Urine Protein Negative Neg-Trace mg/dL Urine Ketones Negative Negative mg/dL Nitrite Urine Negative Negative Leukocyte Esterase Urine Large (3+) Negative RBC Urine 0-2 0-2 /HPF WBC Urine 11-20 0-5 /HPF Squamous Epithelial Cell Urine 0-2 0-2 /HPF Bacteria Urine None Seen None Seen Hyaline Casts Urine 0-2 0-2 /LPF Urine Culture Reviewed date:03/06/2025 03:39:20 PM Interpretation: Performing Lab:[address] [phone] Notes/Report: Urine Culture Report Result Urine Culture < 10,000 cfu/ml XR lumbar spine 2-3V Reviewed date:03/12/2025 05:04:38 PM Interpretation: Performing Lab: Notes/Report: [address] [address] XRay Report Signed Patient: Tiffanie Friedman MR#: [id number] : 1945 Acct:[id number] Age/Sex: 79 / F ADM Date: 03/10/25 Loc: BLAINE Attending Dr: Kendell Vaughn MD Ordering Physician: Kendell Vaughn MD Date of Service: 03/10/25 Procedure(s): XR lumbar spine 2-3V Accession Number(s): [id number] cc: Kendell Vaughn MD EXAMINATION: XR LUMBOSACRAL [...] Brennan Garcia MD 03/12/2025 01:48 PM EDT RP Dictated By: Brennan Garcia MD Signed By: <Electronically signed by Brennan Garcia MD in OV> 03/12/25 1348 DD/ 1348 TD/TT: 03/10/25 1358 Machine Repairer: [place] [address] XRay Report Signed Patient: Tiffanie Friedman MR#: [id number] : 1945 Acct:[id number] Age/Sex: 79 / F ADM Date: 03/10/25 Loc: HO.ARIC Attending Dr: Kendell Vaughn MD Ordering Physician: Kendell Vaughn MD Date of Service: 03/10/25 Procedure(s): XR lumbar spine 2-3V Accession Number(s): [id number] cc: Kendell Vaughn MD EXAMINATION: XR LUMBOSACRAL [...] throughout t he lumbar region. Soft tissues demonstrate chain anastomotic atif overlying the superior right iliac crest. Pessary device withi n the pelvis. XR/XR lumbar spine 2-3V IMPRESSION: 1. Diffuse osteopenia. 2. Chronic appearing superior endplate mild compression deformity of L1. 3. Mild right convex scoliosis, and advanced multilevel degenerative spondylosis. Electronically josh d by: Brennan Garcia MD 03/12/2025 01:48 PM EDT Dictated By: Brennan Garcia MD Signed By: <Electronically signed by Brennan Garcia MD in OV> 03/12/25 1348 DD/ 1348 TD/TT: 03/10/25 1358 Machine Repairer: Complete Blood Count no Diff Reviewed date:05/26/2024 06:21:07 PM Interpretation: Performing Lab:[facility], [address] [place] [phone] Notes/Report: White Blood Count 6.5 4.8-10.8 X10*3/uL [...] Abs Auto 0.000 0.0-0.012 X10*3/uL Leukemia/Lymphoma Eval. Dotty catalan Reviewed date:05/28/2024 02:05:35 PM Interpretation: Performing Lab:[facility], [address] [place] [phone] Notes/Report: LEUKEMIA/LYMPHOMA [id number] BLOOD LLE Interpretation See Note See repor t from [employer] in the EMR. Comprehensive Met. Panel Reviewed date:05/26/2024 06:11:43 PM Interpretation: Performing Lab:[facility], [address] [place] [phone] Notes/Report: Sodium 139 135-145 mmol/L Potassium 4.3 [...] Glomerular Filt Rate > 60 NOTE: For -Spanish individuals, multiply the result by 1.210. Chronic [...] Ferritin Reviewed date:05/26/2024 06:01:37 PM Interpretation: Performing Lab:[facility], [address] [place] [phone] Notes/Report: Ferritin 61 10-250 ng/mL Lactate Dehydrogenase Reviewed date:05/26/2024 05:57:02 PM Interpretation: Performing Lab:[facility], [address] [place] [phone] Notes/Report: Lactate Dehydrogenase 209 122-220 U/L Vitamin B12 and Folate Reviewed date:05/26/2024 06:10:00 PM Interpretation: Performing Lab:[facility], [address] [place] [phone] Notes/Report: Vitamin B12 1459 200-900 pg/mL NORMAL 200-900 PG/ML INDETERMINATE 160-199 PG/ML DEFICIENT < 160 PG/ML Folate 13.4 > or = 4.0 ng/mL Reference Values: > or = 4.0 ng/mL < 4.0 ng/mL suggests folate deficiency Methotrexate, aminopterin and folinic acid (leucovorin) are chemotherapeutic agents whose molecular structures are similar to folate; therefore, the [employer] folate assay cannot be used for patients using these drugs. Thyroid Stimulating Hormone Reviewed date:05/26/2024 05:56:53 PM Interpretation: Performing Lab:[facility], [address] [place] [phone] Notes/Report: Thyroid Stimulating Hormone 0.95 0.32-4.0 uIU/mL TSH 3rd Generation ([employer]) MM tomosynthesis screening B I Reviewed date:08/25/2024 11:03:33 AM Interpretation: Performing Lab: Notes/Report: [facility] [place] [address] Mammography Report Signed Patient: Tiffanie Friedman MR#: [id number] : 1945 Acct:[id number] Age/Sex: 78 / F ADM Date: 08/07/24 Loc: HO.MAMMO Attending Dr: Kendell Vaughn MD Ordering Physician: Kendell Vaughn MD Results: 1Ne gative Date of Service: 08/07/24 Follow Up: 1 Year From Orig inal Mammogram Procedure(s): MM tomosynthesis screening BI Accession Number(s): [id number] cc: Kendell Vaughn MD EXAMINATION: MM SCREENING [...] Laurel Nguyễn DO 08/19/2024 05:49 PM EDT RP Dictated By: Laurel Nguyễn DO Signed By: <Electronically signed by Laurel Nguyễn DO in OV> 08/19/24 1749 DD/ 1130 TD/TT: 08/07/24 1156 Machine Repairer: [place] [facility] [address] [place] [address] Mammography Report Signed Patient: Tiffanie Friedman MR#: [id number] : 1945 Acct:[id number] Age/Sex: 78 / F ADM Date: 08/07/24 Loc: HO.MAMMO Attending Dr: Kendell Vaughn MD Ordering Physician: Kendell Vaughn MD Results: 1Ne gative Date of Service: 08/07/24 Follow Up: 1 Year From [facility] ina Mammogram Procedure(s): MM tomosynthesis screening BI Accession Number(s): [id number] cc: Kendell Vaughn MD EXAMINATION: MM SCREENING [...] Laurel Nguyễn DO 08/19/2024 05:49 PM EDT RP Dictated By: Laurel Nguyễn DO Signed By: <Electronically signed by Laurel Nguyễn DO in OV> 08/19/24 1749 DD/ 1130 TD/TT: 08/07/24 1156 Machine Repairer: Urine Culture Reviewed date:08/27/2024 06:47:18 PM Interpretation: Performing Lab:[address] [phone] Notes/Report: Urine Culture Report Result Urine Culture < 10,000 cfu/ml Complete Blood Count Auto Di ff Reviewed date:11/24/2024 05:38:48 PM Interpretation: Performing Lab:[address] [phone] Notes/Report: White Blood Count 6.7 4.8-10.8 X10*3/uL [...] Panel Reviewed date:11/24/2024 05:24:22 PM Interpretation: Performing Lab:[facility], [address] [place] [phone] Notes/Report: Sodium 140 135-145 mmol/L Potassium 4.3 [...] Antigen Reviewed date:11/24/2024 05:31:30 PM Interpretation: Performing Lab:[facility], [address] [place] [phone] Notes/Report: Carcinoembryonic Antigen 4.40 CEA Reference Range: 93.4% Non-Smokers = 0.0-3.0 ng/mL 95.6% Smokers = 0.0-5.0 ng/mL CEA Methodology: QuadROI Alinity i Chemiluminescent Microparticle Immunoassay (CMIA) CEA testing can have significant value in monitoring of patients with diagnosed malignancies in whom changing concentrations of CEA are observed. Values obtained with different assay methods cannot be used interchangeably. CT abdomen pelvis w con Reviewed date:12/06/2024 12:28:50 PM Interpretation: Performing Lab: Notes/Report: [address] [address] [address] Scan Report Signed Patient: Tiffanie Friedman MR#: [id number] : 1945 Acct:[id number] Age/Sex: 79 / F ADM Date: 12/05/24 Loc: HO.CT Attending Dr: Mckayla Wang MD Ordering Physician: Mckayla Wang MD Date of Service: 12/05/24 Procedure(s): CT abdomen pelvis w IV con Accession Number(s): [id number] cc: Kendell Vaughn MD; Mckayla Wang MD Report Number: [id number]: Total DLP = 186.00 mGy-cm CLINICAL HISTORY: Colon cancer, surveillance CT abdomen and pelvis with contrast Comparison: CT/NE/SR - CT ABDOMEN PELVIS WO IV CON [...] 12/05/24 1524 DD/ 1523 TD/TT: 12/05/24 1523 Machine Repairer: [place] [address] CT Scan Report Signed Patient: Tiffanie Friedman MR#: [id number] : 1945 Acct:[id number] Age/Sex: 79 / F ADM Date: 12/05/24 Loc: HO.CT Attending Dr: Mckayla Wang MD Ordering Physician: Mckayla Wang MD Date of Service: 12/05/24 Procedure(s): CT abdomen pelvis w IV con Accession Number(s): [id number] cc: Kendell Vaughn MD; Mckayla Wang MD Report Number: [id number]: Total DLP = 186.00 mGy-cm CLINICAL HISTORY: Colon cancer, surveillance CT abdomen and pelvi s with contrast Comparison: CT/NE/SR - CT ABDOMEN PELVIS WO IV CON [...] 12/05/24 1524 DD/ 1523 TD/TT: 12/05/24 1523 Machine Repairer: Urine Culture Reviewed date:02/11/2025 02:05:42 PM Interpretation: Performing Lab:[facility], [address] [place] [phone] Notes/Report: O:ESCCOL Escherichia coli Urine Culture Quant Urine Culture 50,000 to 100,000 cfu/mL Ampicillin >=32 Cefazolin (Urine) 8 Cefepime <=0.12 Ceftriaxone <=0.25 Ciprofloxacin <=0.06 Gentamicin >=16 Nitrofurantoin <=16 Trimethoprim/Sulfamethox azole >=320 Urine Culture Reviewed date:02/26/2025 06:18:54 PM Interpretation: Performing Lab:[facility], [address] [place] [phone] Notes/Report: Urine Culture Report Result Urine Culture 10,000 to 50,000 cfu/ml Urine Culture Mixed bacterial travis a characteristic of Urine Culture urogenital contamination. Reason For Referral No Information Medications Medication SIG (Take, Route, Frequency, Duration) Notes Start Date End Date Status Calcium 600 MG 1 tablet with meals Orally once a day Active Estradiol 0.1 MG/GM 1 application Vagina l Two times a Week Active Omeprazole 20 MG 1 capsule 30 minutes before morning meal Orally Once a day Active Vitamin D (Cholecalciferol) 25 MCG (1000 UT) 1 capsule Orally Once a day Active Cephalexin 500 MG 1 capsule Orally twi ce a dayt for 5 days 02/09/2025 Active Cephalexin 500 MG 1 capsule Orally twi ce a day for 10 days 03/05/2025 Active Vitamin C 500 MG as directed Orally Active PriLOSEC OTC 20 MG 2 tablet 30 minutes before morning meal Orally Once a day Not-Taking Albuterol Sulfate HFA 108 (90 Base) MCG/ACT 2 puff as needed Inhalation every 4 hrs 02/16/2023 Active Ibuprofen 800 MG 1 TABLET ORALLY THRE E TIMES A DAY for 30 Not-Taking Stool Softener 100 MG 1 tablet as needed Orally three times a day Active tiZANidine HCl 2 MG 1 tablet as needed Orally Three times a day Not-Rustam ing Cranberry 405 MG 1 capsule with meals Orally Twice a day Active Methenamine Hippurate 1 GM 1 tablet Orally Twice a day for 10 day(s) Not-Taking PARoxetine HCl 10 MG TAKE 1 TABLET BY [facility] EVERY DAY IN THE MORNING for 90 Active Ativan 0.5 MG 1 tablet as needed Orally Twice a day 06/15/2015 Not-Taking Immunizations Vaccine Route Administration Date Status Comme nts Flu Vaccine IM Intramuscular 07/11/2011 Administered Flu Vaccine IM Intramuscular 07/29/2012 Administered PPSV23 (Pnemovax) Unknown 03/07/2009 Administered Prevnar 13 IM Intramuscular 03/07/2013 Administered Flu Vaccine IM Intramuscular 07/22/2013 Administered Flu Vaccine Unknown 08/27/2014 Administered received at [facility] PPSV23 (Pnemovax) Unknown 08/27/2014 Administered recei erika at [facility] Fluarix Quadrivalent IM Intramuscular 08/09/2015 Administe red Fluarix Quadrivalent IM Intramuscular 08/09/2015 [facility] Fluarix Quadrivalent IM Intramuscular 07/27/2016 [facility] Fluarix Quadrivalent IM Intramuscular 07/30/2017 [facility] TDaP Unknown 01/14/2018 Administered pt was given the vaccine at [facility] in [place] on [facility] Fluarix Quadrivalent IM Intramuscular 07/29/2018 [facility] red Fluarix Quadrivalent Unknown 07/11/2019 Administered CV S Shingrix Unknown 07/11/2019 Administered [facility] #1 PPSV23 (Pnemovax) IM Intramuscular 12/15/2019 Administered Shingrix IM Intramuscular 10/20/2019 Administered Given at [facility]. Shingles Unknown 10/20/2019 Administered Influenza High Dose IM Intramuscular 07/16/2020 Administer ed Covid Vaccine Unknown 12/16/2020 Administered Pfizer Covid Vaccine Unknown 01/06/2021 Administered Pfizer SARS-COV-2 Pfizer Unknown 08/08/[address] [facility] Influenza High Dose IM Intramuscular 08/09/2021 Administer ed SARS-COV-2 Pfizer Unknown 08/08/2021 Administered Influenza High Dose Unknown 08/08/[address] [facility] SARS-COV-2 Pfizer Unknown 03/24/2022 Administered Influenza High [...] Problem Status W/U Status Risk Notes Problem 67059240 Age-related osteoporosis without current pathological fracture (M81.0) Active confirmed Problem 615060997 Neuropathy (G62.9) Active confirmed Problem 22206648 Restless leg syn drome (G25.81) Active confirmed Problem 782976515 Reflux esophagit is (K21.00) Active confirmed Problem 52063485 Vitamin D defici ency (E55.9) Active confirmed Problem 82600588 Anxiety (F41.9) Active confirmed Problem Dysphagia (92727516) Dysphagia (R13.10) Active confirmed Problem 689471387 Malignant neopla sm of hepatic flexure (C18.3) Active confirmed Problem 633064588 Other headache syndrome (G44.89) Active confirmed Problem 16412402 Irritable bowel syndrome without diarrhea (K58.9) Active confirmed Problem 023859806 Gastroesophageal reflux disease without esophagitis (K21.9) Active confirmed Problem 88638086 Osteoporosis (M81.0) Active confirmed Problem 458149597 Abnormal mammogr am of left breast (R92.8) Active confirmed Problem 434182836 PAC (premature a trial contraction) (I49.1) Active confirmed Problem 31090085 Oropharyngeal dysphagia (R13.12) Active confirmed Problem 17482361 Iron deficiency anemia, unspecified iron deficiency anemia type (D50.9) Active confirmed Problem 48826915226440 Pharyngeal dysph agia (R13.13) Active confirmed Problem 031382888 Vaginal bleeding (N93.9) Active confirmed Problem 46902578 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) Active confirmed Problem 661915384 Pure hypercholesterolemia (E78.00) Active confirmed Problem 755487677 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) Active confirmed Problem 82248981 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) Active confirme d Problem Abnormal chest x ray (R93.89) Active confirmed Problem 14596849 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 confirmed Problem 153506211 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) Active confirmed Problem 63538125 Senile cataract, unspecified age-related cataract type, unspecified laterality (H25.9) Active confirmed Vital Signs Blood pressure diastolic 60 mm Hg 03/09/2025 Height 59.5 in 03/09/2025 Blood pressure systolic 92 mm Hg 03/09/2025 Weight 95 lbs 03/09/2025 BMI 18.86 kg/m2 03/09/2025 Encounters Encounter Location Date Provider Diagnosis Kendell Vaughn MD [address] [place] [id number] 02/23/2025 Kendell Vaughn UTI (urinary tract infection) N39.0 Kendell Vaughn MD [address] [place] [id number] 04/21/2024 Kendell Vaughn Pre-op evaluation Z0 1.818 and Senile cataract, unspecified age-related cataract type, unspecified laterality H25.9 Kendell Vaughn MD [address] [place] [address] [id number] 07/04/2024 Kendell Vaughn Palpitations R00.2 a nd Pulmonary fibrosis J84.10 Kendell Vaughn MD [address] [place] [id number] 07/31/2024 Kendell Vaughn Palpitations R00.2 ; 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 and Encounter for immunization Z23 Kendell Vaughn MD [address] [place] [id number] 08/26/2024 Kendell Vaughn Vitamin D deficiency E55.9 ; Pure hypercholesterolemia E78.00 and Iron deficiency anemia, unspecified iron deficiency anemia type D50.9 Kendell Vaughn MD [address] [place] [address] Drive [address] [place] [id number] 09/05/2024 Kendell Vaughn Osteoporosis M81.0 ; Pure hypercholesterolemia E78.00 ; Vitamin D deficiency E55.9 ; Reflux esophagitis K21.00 and Depression screening Z13.31 Kendell Vaughn MD [address] [place] [id number] 02/09/2025 Kendell Vaughn UTI (urinary tract infection) N39.0 Kendell Vaughn MD [address] [place] [address] [id number] 03/05/2025 Kendell Vaughn UTI (urinary tract infection) N39.0 Kendell Vaughn MD [address] [place] [address] [id number] 03/09/2025 Kendell Vaughn Compression fracture of fifth lumbar vertebra S32.050A Kendell Vaughn MD [address] [place] [address] [id number] 04/21/2024 Kendell Vaughn MD [address] [id number] 09/01/2024 Kendell Vaughn Osteoporosis M81.0 Kendell Vaughn MD [address] [id number] 03/06/2025 Kendell Vaughn MD [address] [id number] 03/09/2025 Kendell Vaughn MD [address] [id number] 03/10/2025 Kendell Vaughn Lumbar back pain M54 .50 Assessments Encounter Date Diagnosis (ICD Code) Assessment Notes Treatment Notes Treatment Clinical Notes Section Notes 02/23/2025 UTI (urinary tract infection) (ICD-10 - N39.0) 04/21/2024 Pre-op evaluation (ICD-10 - Z01.818) patient [...] understanding of medication and directions for use 03/05/2025 UTI (urinary tract infection) (ICD-10 - N39.0) patient verbalized understanding of medication and directions for use 03/09/2025 Compression fracture of fifth lumbar vertebra (ICD-10 - S32.050A) have reviewed all the other scans and there was no obvious signs of any disorders. no uti/ order faxed to [facility] CS dept , pending diagnostic testing 09/01/2024 Osteoporosis (ICD-10 - M81.0) 03/10/2025 Lumbar back pain (ICD-10 - M54.50) 07/31/2024 Encounter for immunization (ICD-10 - Z23) [...] (EKG) 05/28/2015 MRI CERVICAL SPINE NO CONTRAST 1 MRI LUMBAR SPINE NO CONTRAST 11/30/2023 NUC [...] diagnostic BI XR DEXA axial skeleton 10/30/2023 NM bone scan whole body 03/09/2025 XR hip LT min 2V 11/29/2023 XR lumbar spine 2-3V 11/29/2023 XR cervical spine 3V 11/29/2023 Next Appt Details Provider Name:Kendell skinnerr, 03/19/2025 09:15:00 AM, [address] [place] [address], [address] [place] [address], [phone], Provider Name:Kendell Cadena ier, 09/03/2025 07:15:00 AM, [address] [place] [address], Suite [facility], [place], [place], [phone], Provider Name:Kendell Cadena ier, 09/10/2025 08:30:00 AM, [address] [place] [address], Suite [facility], [place], [place], [phone], Insurance Providers Payer Name Payer Address Payer Phone Subscriber Number Group Number Insured Name Patient Relationship to Insured Coverage Start Date Coverage End Date [employer] [address] [place] [address] [id number] Tiffanie Catalan Self - patient is the insured [employer] [address] [place], [place] [phone] [id number] Tiffanei Catalan Self - patient is the insured Medical (General) History Medical History History ICD Code colonoscopy 10/03/2013 and 2 005 negative - no further colonoscopies indicated per Dr. Rojo:12/04/23 colonoscopy pending path pap smear - negative (10/20/2013) blood on underwear. had cysto tizanidine is zanaflex Surgical History Surgery Date(Month/Year) Hammertoe, right fifth toe (Dr. Mcfarlane)
--- OUTSIDE RECORDS SUMMARY | 2025-03-17 10:37 | XMS_ITS ---
Author Organization [facility] Address [address] [place] [address] Care Team Providers Care Learning Program Manager Name Role Phone Roderick GARCIA, Kendell Primary Care Provider Jono Gamboa Unavailable [phone] Allergies Allergen (clinical drug ingredient) Drug/Non Drug [...] Problem History of malignant neoplasm of colon (457789824) Personal history of colon cancer (Z85.038) Active confirmed Problem Chronic constipation (757522420) Chronic constipation (K59.09) Active confirmed Vital Signs Blood pressure systolic 00 mm Hg 11/25/19 25 Blood pressure diastolic 00 mm Hg 025 Height 58.25 in 11/25/2024 Weight 91 lbs 11/25/2024 BMI 18.85 kg/m2 11/25/2024 Encounters Encounter Location Date Provider Diagnosis [facility] [address] [facility] [address] [place] [phone] 11/25/2024 Jono Rojo Personal history of colon [...] Up: prn, Reason: Provider Name:Jono Rojo , 06/22/2025 07:30:00 AM, [address] [place] [address], [phone], Progress Notes * EMIR MCNAMARAEDOB:[birth year] (79 yo F)Acc No.[id number]:11/25/2024 Progress Notes Patient:?TIFFANIE MCNAMARA Provider:?Jono Rojo MD :1945???Age:79 Y???Sex:Female D ate:11/25/2024 Address:[address] [place], [place] [phone] Pcp:Kendell Vaughn MD Subjective: * Chief Complaints: [...] Family History:?Father: dece ased 65 yrs, lung cancer/firearms instructor.?Mother: 95 yrs, diagnosed with Heart disease.? No [...] for 11/25/2024) * Procedure Codes:?1036F TOBAC CO NON-[id number] BP SCR NOT PRFRM REC REASON NOS [...] MD Date:? 025 Generated for Donavani rekha/Chapito/Erick on:?03/17/2025 10:36 AM EDT History and Physical Notes * [...]
--- OUTSIDE RECORDS SUMMARY | 2025-03-17 10:37 | XMS_ITS ---
Author Organization Kendell Vaughn MD Address [address] [place] [phone] Care Team Providers Care Attorney Law Clerk Name Role Phone Kendell Vaughn Primary Care Provider [phone] REASON FOR VISIT u/a Encounters Encounter Location Date Provider Diagnosis Kendell Vaughn MD [address] [place] [phone] 03/17/2025 Kendell Vaughn UTI (urinary tract infection) N39.0 Assessments Encounter Date Diagnosis (ICD Code) Assessment Notes Treatment Notes Treatment Clinical Notes Section Notes 03/17/2025 UTI (urinary tract infection) (ICD-10 - N39.0) Plan Of Treatment Pending Test Test Name Order Date UA ClnCatch+Micro w/rflx Cult 03/17/2025 Next Appt Details Provider Name:Kendell Cadena ier, 03/19/2025 09:15:00 AM, [address], [address], [place], [phone], Provider Name:Kendell Cadena ier, 09/03/2025 07:15:00 AM, [address] [facility], [address], [place], [phone], Provider Name:Kendell Cadena ier, 09/10/2025 08:30:00 AM, [address] [facility] [address], [address], [place], [phone], Progress Notes * Tiffanie MCNAMARA MDOB:12/1944 (79 yo F)Acc No.[id number]:03/17/2025 Progress Note Patient:?Tiffanie MCNAMARA Provider:?Kendell Vaughn MD :1945???Age:79 Y???Sex:Female D ate:03/17/2025 Address:[address] [place] [address] [place], [id number] Subjective: * Chief Complaints: * ???1. U/a. * Medical History:? Objective: * Vitals:? Assessment: * Assessment: 1.?UTI (urinary tract infect ion) - N39.0??? Plan: * Treatment: * * The named appointment provid er may or may not be the originator of this progress note, and it is not deemed complete until electronically signed by the appointment provider. Sign off status: Pending * Provider:?Kendell Vaughn MD Date:?0 03/17/2025 Generated for Devorah da silva/Chapito/Stveesmitting on:?03/17/2025 10:36 AM EDT
--- OUTSIDE RECORDS SUMMARY | 2025-03-17 10:37 | XMS_ITS ---
Author Organization [facility] Address [address] [place] [phone] Care Team Providers Care Needlemaker Name Role Phone Kendell Vaughn MD Primary Care Provider Jono Gamboa [phone] REASON FOR VISIT colon screening Encounters Encounter Location Date Provider Diagnosis [facility] [address] [place] [phone] 01/07/2025 Jono Rojo Plan Of Treatment Next Appt Details Provider Name:Jono Rojo , 06/22/2025 07:30:00 AM, [address] [place] [address] , [place], [place], [phone], Progress Notes * EMIR MCNAMARAEDOB:[birth year] (79 yo F)Acc No.[id number]:01/07/2025 Progress Notes Patient:?KRIS MCNAMARA Provider:?Jono Rojo MD :1945???Age:79 Y???Sex:Female D ate:01/07/2025 Address:[address] [place] [address], [id number] Pcp:Kendell Vaughn MD Subjective: * Chief Complaints: [...] Date:? 025 Generated for Devorah da silva/Chapito/Erick on:?03/17/2025 10:37 AM EDT
--- OUTSIDE RECORDS SUMMARY | 2025-03-17 10:37 | XMS_ITS ---
Author Organization Kendell Vaughn MD Address [address] [place] [phone] Care Team Providers Care Ecological Modeler Name Role Phone Kendell Vaughn Primary Care Provider Allergies Allergen (clinical drug ingredient) Drug/Non Drug Allergy documented on EMR Reaction Allergy Type Onset Date Status codeine Codeine Sulfate gi upset Drug Allergy A ctive sulfamethoxazole / trimethoprim Bactrim DS heart palpitations Drug Allergy Active erythromycin erythromycin (uncoded) gi upset Allergy Active REASON FOR VISIT lower back pian Medications Medication SIG (Take, Route, Frequency, Duration) Notes Start Date End Date Status Cephalexin 500 MG 1 capsule Orally twi ce a dayt for 5 days 02/09/2025 Active Cephalexin 500 MG 1 capsule Orally twi ce a day for 10 days 03/05/2025 Active PriLOSEC OTC 20 MG 2 tablet 30 minutes before morning meal Orally Once a day Not-Taking Ibuprofen 800 MG 1 TABLET ORALLY THRE E TIMES A DAY for 30 Not-Taking tiZANidine HCl 2 MG 1 tablet as needed Orally Three times a day Not-Rustam ing Calcium 600 MG 1 tablet with meals Orally once a day Active Estradiol 0.1 MG/GM 1 application Vagina l Two times a Week Active Omeprazole 20 MG 1 capsule 30 minutes before morning meal Orally Once a day Active Vitamin D (Cholecalciferol) 25 MCG (1000 UT) 1 capsule Orally Once a day Active PARoxetine HCl 10 MG TAKE 1 TABLET BY [facility] EVERY DAY IN THE MORNING for 90 Active Vitamin C 500 MG as directed Orally Active Albuterol Sulfate HFA 108 (90 Base) MCG/ACT 2 puff as needed Inhalation every 4 hrs 02/16/2023 Active Stool Softener 100 MG 1 tablet as needed Orally three times a day Active Cranberry 405 MG 1 capsule with meals Orally Twice a day Active Ativan 0.5 MG 1 tablet as needed Orally Twice a day 06/15/2015 Not-Taking Methenamine Hippurate 1 GM 1 tablet Orally Twice a day for 10 day(s) Not-Taking Vital Signs Blood pressure systolic 92 mm Hg 03/09/20 25 Blood pressure diastolic 60 mm Hg 025 Height 59.5 in 03/09/2025 Weight 95 lbs 03/09/2025 BMI 18.86 kg/m2 03/09/2025 Encounters Encounter Location Date Provider Diagnosis Kendell Vaughn MD [address] [place] [address] [place] [phone] 03/09/2025 Kendell Vaughn Compression fracture of fifth lumbar vertebra S32.050A Assessments Encounter Date Diagnosis (ICD Code) Assessment Notes Treatment Notes Treatment Clinical Notes Section Notes 03/09/2025 Compression fracture of fifth lumbar vertebra (ICD-10 - S32.050A) have reviewed all the other scans and there was no obvious signs of any disorders. no uti/ order faxed to [facility] , pending diagnostic testing Plan Of Treatment Treatment Notes Assessment Notes Compression fracture of fift h lumbar vertebra have reviewed all the other scans and there was no obvious signs of any disorders. no uti/ order faxed to [facility] , pending diagnostic testing Pending Test Test Name Order Date NM bone scan whole body 03/09/2025 Next Appt Details Follow Up: after bone scan, Reason: Provider Name:Kendell Cadena jennifer, 03/19/2025 09:15:00 AM, [address] [facility], [address], [place], [place], [phone], Provider Name:Kendell Cadena jennifer, 09/03/2025 07:15:00 AM, [address] [facility], [address], [place], [phone], Provider Name:Kendell Cadena ier, 09/10/2025 08:30:00 AM, [address] [place] [address], [address], [place], [place], [phone], Progress Notes * Tiffanie MCNAMARA MDOB:12/1944 (79 yo F)Acc No.[id number]:03/09/2025 Patient:?Tiffanie MCNAMARA Provider:?Kendell Vaughn MD :1945???Age:79 Y???Sex:Female D ate:03/09/2025 Address:[address] [place] [address] [place], [phone] Subjective: * Chief Complaints: * ???Lower back pian * HPI: ???Symptom(s):?patient is a 79 yo female here with complaint of?severe back pain. started after having blood in urine. sometimes comes around the front. gets worse with walking and standing still. not down legs. no nausea. * ROS:?General/Constitutional:?Denies?Chills.?Denies?Fatigue.?Denies?Fever.?Denies?Headache.?ENT:?Denies?Sore throat.?Respiratory:?Denies?Cough.?Denies?Shortness of breath at rest.?Denies?Shortness of breath with exertion.?Gastrointestinal:?Denies?Diarrhea.?Denies?Nausea.? * Medical History:? * Surgical History:? * [...] Capsule 1 capsule Orally Once a day Cephalexin 500 MG Capsule 1 capsule Orally twice a dayt Cephalexin 500 MG Capsule 1 capsule Orally twice a day Taking Vitamin C 500 MG [...] 1 capsule Orally Once a day Taking Cephalexin 500 MG Capsule 1 capsule Orally twice a dayt Taking Cephalexin 500 MG Capsule 1 capsule Orally twice a day Not-Taking/PRNPriLOSEC OTC 20 MG Tablet [...] tablet as needed Orally Twice a day Medication List reviewed and reconciled with the patientNot-Taking/PRN [...] tablet as needed Orally Twice a day Medication List reviewed and reconciled with the patient * Allergies:?erythromycin: gi upsetCodeine Sulfate: gi upsetBactrim DS: heart palpitationsyes[Allergies Verified] Objective: * Vitals:?Ht: 59.5, Wt: 95, BM I:18.86, BP:92/60, Wt-k.09. * Examination: ???General Examination: ?GENERAL APPEARANCE:?abnormal with obvious pain with movement.?SKIN:?good turgor.?ABDOMEN:?soft, nontender, nondistended, no rebound tenderness, no organomegaly.?BACK:?pain on palpattion over the lower back in area of si joints.? Assessment: * Assessment: 1.?Compression fracture of f ifth lumbar vertebra - S32.050A (Primary)??? Plan: * Treatment: * Procedure Codes:? * Follow Up:?after bone scan * * Sign off status: Completed true * Provider:?Kendell Vaughn MD Date:?0 03/09/2025 Generated for Devorah da silva/Chapito/Erick on:?03/17/2025 10:37 AM EDT History and Physical Notes * HPI (History of Present Illness) Category Sub-Category Detail Notes Category Not es Symptom(s) patient is a 79 yo female here with complaint of severe back pain. started after having blood in urine. sometimes comes around the front. gets worse with walking and standing still. not down legs. no nausea. Examination Category Sub-Category Detail Notes Category Not es General Examination GENERAL APPEARANCE: abnormal with obvious pain with movement ABDOMEN: soft, nontender, non distended, no rebound tenderness, no organomegaly SKIN: good turgor BACK: pain on palpattion o zakiya the lower back in area of si joints
--- OUTSIDE RECORDS SUMMARY | 2025-03-17 10:38 | XMS_ITS ---
Author Organization [facility] Address [address] [place] [phone] Care Team Providers Care Flight Engineer Name Role Phone Kendell Vaughn MD Primary Care Provider Jono Gamboa [phone] REASON FOR VISIT constipation Encounters Encounter Location Date Provider Diagnosis [facility] [address] [place] [phone] 01/08/2025 Jono Rojo Plan Of Treatment Next Appt Details Provider Name:Jono Rojo , 06/22/2025 07:30:00 AM, [address] [place] [address] , [place], [place], [phone], Progress Notes * EMIR MCNAMARAEDOB:[birth year] (79 yo F)Acc No.[id number]:01/08/2025 Patient:?KRIS MCNAMARA :1945???Age:79 Y???Sex:Female Address:[address] [place] [address], [place] [address] * true * Date:? Generated for Printi rekha/Chapito/eTransmitting on:?03/17/2025 10:37 AM EDT
--- OUTSIDE RECORDS SUMMARY | 2025-03-17 10:38 | XMS_ITS | Patient Health Record ---
Author Organization [facility] Address [address] [place] [address] Care Team Providers Care Cash Room Clerk Name Role Phone Roderick GARCIA, Kendell Primary Care Provider Jono Gamboa Unavailable [phone] Allergies Allergen (clinical drug ingredient) Drug/Non Drug [...] Status Risk Notes Problem Iron deficiency anemia (45907505) Iron deficiency anemia (D50.9) Active confirmed Problem 946242581 Gastroesophageal reflux disease, esophagitis presence not specified (K21.9) Active confirmed Problem 27210642 Constipation, unspecified constipation type (K59.00) Active confirmed Problem History of malignant neoplasm of colon (862306930) Personal history of colon cancer (Z85.038) Active confirmed Problem Chronic constipation (522541394) Chronic constipation (K59.09) Active confirmed Problem 69962670 Esophageal dysphagia (R13.19) Active confirmed Problem Primary adenocarcinoma of ascending colon (735917952614074) Primary adenocarcinoma of ascending colon (C18.2) Active confirmed Vital Signs Blood pressure diastolic 00 mm Hg 11/25/2024 Height 58.25 in 11/25/2024 Blood pressure systolic 00 mm Hg 11/25/2024 Weight 91 lbs 11/25/2024 BMI 18.85 kg/m2 11/25/2024 Encounters Encounter Location Date Provider Diagnosis [facility] [address] [place] [phone] 11/25/2024 Jono Rojo Personal history of colon cancer Z85.038 ; Chronic constipation K59.09 and Gastroesophageal reflux disease, esophagitis presence not specified K21.9 [facility] [address] [place] [address] 01/08/2025 Jono Rojo Assessments Encounter Date Diagnosis [...] COLONOSCOPY 11/25/2024 Next Appt Details Provider Name:Jono Carlos Rojo , 06/22/2025 07:30:00 AM, [address] [place] [address] , [place], [place], [phone], Insurance Providers Payer Name Payer Address Payer Phone Subscriber Number Group Number Insured Name Patient Relationship to Insured Coverage Start Date Coverage End Date MEDICARE OF [place] [address] [facility] [id number] TIFFANIE WATT Self - patient is the insured MEDEX ATTN CLAIMS [address] [place] [address] [id number] TIFFANIE WATT Self - patient is the insured Medical (General) History Medical History History ICD Code Denies NM,DM,CVA,renal disease Colonoscopy 11-17-2004--internal hemorrhoi ds; neg. flex [...]
--- OUTSIDE RECORDS SUMMARY | 2025-03-17 10:38 | XMS_ITS | Clinical Summary ---
Author Organization [facility] Address [address] [place] [address] Care Team Providers Care Durability Technician Name Role Phone Kendell Vaughn MD Primary Care Provider [phone] Social History Tobacco Use Types Packs/Day Years [...] age to complete this topic Care Teams Durability Technician Relationship Specialty Start Date End Date Kendell Vaughn MD [address] [place] [address] PCP - General Internal Medicine 04/26/21
== END ==
LOC: HO.NUCMED 09:35
PROVIDERS: PCP Internal Medicine; Visit Provider Internal Medicine
DX: N39.0 Urinary tract infection, site not specified (principal)
CPT/HCPCS: 78306; 81001; 87086; 87088; 87186; A9503

== ENCOUNTER → 2025-03-17 10:00 | Outpatient (BNV) | payer MEDICARE, SELFPAY | PROVIDERS: PCP Internal Medicine; Visit Provider Radiology Diagnostic Radiology | DX: S32.050A Wedge compression fracture of fifth lumbar vertebra, initial encounter for closed fracture (principal) | CPT/HCPCS: 78306 ==

== ENCOUNTER 2025-03-17 14:07 | Outpatient (REF) | payer MEDICARE, SELFPAY ==
[2025-03-17 14:16] LABS: Appearance Urine Turbid; Color Urine Yellow; Glucose Urine UA Negative (Negative); Leukocyte Esterase Urine Large (3+) (Negative); Nitrite Urine Positive (Negative); Specific Gravity - Urine 1.015 (1.005-1.025); UMIC TRIGGER UACC YES; Urine Blood Small (1+) (Negative); Urine Ketones Negative (Negative); Urine Protein Trace mg/dL (Neg-Trace)
[2025-03-17 14:35] LABS: Bacteria Urine 4+ (None Seen); Hyaline Casts Urine 0-2 /LPF (0-2); UACC Culture Trigger YES; WBC Urine >50 /HPF (0-5)
--- OUTSIDE RECORDS SUMMARY | 2025-03-17 15:26 | XMS_ITS | Clinical Summary ---
Author Organization [facility] Address [address] [place] [address] Care Team Providers Care Chief Of Harbor Patrol Name Role Phone Kendell Vaughn MD Primary Care Provider [phone] Social History Tobacco Use Types Packs/Day Years [...] age to complete this topic Care Teams Chief Of Harbor Patrol Relationship Specialty Start Date End Date Kendell Vaughn MD [address] [facility] [address] [place] [address] PCP - General Internal Medicine 04/26/21
== END 2025-03-17 14:08 | disposition home or self-care (01) ==
LOC: HO.LNP 14:07
PROVIDERS: Visit Provider Internal Medicine
DX: Z13.89 Encounter for screening for other disorder (principal)
CPT/HCPCS: 81001; 87086; 87088; 87186

== ENCOUNTER 2025-03-19 09:56 | Outpatient (REF) | payer MEDICARE, SELFPAY ==
--- NOTE | ~2025-03-19 | XR_ITS ---
EXAMINATION: XR HIP, LEFT CLINICAL INFORMATION: Left hip pain. COMPARISON: None available. TECHNIQUE: Two views of the left hip. FINDINGS: There is mild diffuse osteopenia. No fracture, dislocation, or suspicious bone lesion. There is normal alignment. There is normal acetabular coverage. Normal femoral head contour without evidence of AVN. Minimal degenerative arthritis in the left hip joint. Amorphous calcification abutting the greater trochanter, suggestive of calcific tendinopathy of the gluteal abductor tendons. Normal-appearing soft tissues. A pessary device is noted within the inferior pelvis. XR/XR hip LT min 2V IMPRESSION: 1. Minimal degenerative arthritis left hip joint. 2. Calcific enthesopathy of the abductor tendons. Electronically signed by: Brennan Garcia MD 03/19/2025 10:50 AM EDT
--- NOTE | ~2025-03-19 | XR_ITS ---
EXAMINATION: XR SACROILIAC JOINTS CLINICAL INFORMATION: COMPRESSION FX FIRST LUMBAR VIRTEBRA,ROUTINE HEALING COMPARISON: None available. TECHNIQUE: 3 views of the sacroiliac joints FINDINGS: There is mild diffuse osteopenia. Sacrum is intact. There are mild degenerative changes in both SI joints without evidence of inflammatory erosions. Advanced degenerative spondylosis of the lower lumbar spine. There is a pessary device in the inferior pelvis. XR/XR sacroiliac joint min 3V IMPRESSION: 1. Mild degenerative changes in the sacroiliac joints without evidence of inflammatory arthropathy. 2. No acute bony abnormalities. 3. Advanced spondylosis of the imaged lumbar spine. Electronically signed by: Brennan Garcia MD 03/19/2025 10:52 AM EDT
--- OUTSIDE RECORDS SUMMARY | 2025-03-19 10:54 | XMS_ITS | Patient Health Record ---
Author Organization Kendell Vaughn MD Address [address] [place] [phone] Care Team Providers Care Vessel Master Name Role Phone Kendell Vaughn Primary Care [...] t Reviewed date:02/24/2025 09:53:03 AM Interpretation: Performing Lab:[facility], [address] [place] [phone] Notes/Report: Urine, Clean Catch Color Urine Yellow Appearance Urine Turbid PH 8.0 5.0-9.0 Glucose Urine UA Negative Negative mg/dL Urine Blood Negative Negative Specific [place] - Urine 1.015 1.005-1.025 Urine Protein Negative [...] ff Reviewed date:08/27/2024 06:47:49 PM Interpretation: Performing Lab:[facility], [address] [place] [phone] Notes/Report: White Blood Count 5.2 4.8-10.8 X10*3/uL [...] NRBC Abs Auto 0.000 0.0-0.012 X10*3/uL Comprehensive [place]. Panel [facility] Reviewed date:08/28/2024 09:26:45 PM Interpretation: Performing Lab:[facility], [address] [place] [phone] Notes/Report: Sodium 139 135-145 mmol/L Potassium 4.2 3.3-5.1 mmol/L Chloride 103 96-108 mmol/L Carbon Dioxide 30 22-29 mmol/L Anion Gap 10 12-20 Blood Urea Nitrogen 17 9-16 mg/dL Creatinine 0.69 0.5-1.4 mg/dL Estimated Glomerular Filt Rate > 60 NOTE: For -Argentine individuals, multiply the result by 1.210. Chronic [...] PROFILE Reviewed date:08/27/2024 06:41:00 PM Interpretation: Performing Lab:[facility], [address] [place] [phone] Notes/Report: Iron 123 30-160 mcg/dL Total Iron Binding Capacity 284 228-428 mcg/dL Percent Iron Saturation 43 15-50 % Unsaturated Iron Binding 161 Lipid Panel Reviewed date:08/27/2024 06:41:40 PM Interpretation: Performing Lab:[facility], [address] [place] [phone] Notes/Report: Triglycerides 60 <150 mg/dL Desirable Triglyceride: [...] t Reviewed date:08/28/2024 09:35:22 PM Interpretation: Performing Lab:[facility], [address] [place] [phone] Notes/Report: Urine, Clean Catch Color Urine Yellow Appearance Urine Clear PH 7.5 5.0-9.0 Glucose Urine UA Negative Negative mg/dL Urine Blood Negative Negative Specific [place] - Urine 1.015 1.005-1.025 Urine Protein Negative [...] t Reviewed date:02/10/2025 09:39:40 AM Interpretation: Performing Lab:[facility], [address] [place] [phone] Notes/Report: Urine, Clean Catch Color Urine Yellow Appearance Urine Cloudy PH 5.5 5.0-9.0 Glucose Urine UA Negative Negative mg/dL Urine Blood Large (3+) Negative Specific [place] - Urine 1.010 1.005-1.025 Urine Protein 30 (1+) Neg-Trace mg/dL Urine Ketones Negative Negative mg/dL Nitrite Urine Negative Negative Leukocyte Esterase Urine Large (3+) Negative RBC Urine >20 0-2 /HPF WBC Urine >50 0-5 /HPF Squamous Epithelial Cell Urine 0-2 0-2 /HPF Bacteria Urine Trace None Seen Hyaline Casts Urine 0-2 0-2 /LPF Urinalysis and Microscopic Reviewed date:03/05/2025 04:52:46 PM Interpretation: Performing Lab:[address] [phone] Notes/Report: Color Urine Yellow Appearance Urine Clear PH 6.5 5.0-9.0 Glucose Urine UA Negative Negative mg/dL Urine Blood Negative Negative Specific [place] - Urine <= 1.005 1.005-1.025 Urine Protein Negative Neg-Trace mg/dL Urine Ketones Negative Negative mg/dL Nitrite Urine Negative Negative Leukocyte Esterase Urine Large (3+) Negative RBC Urine 0-2 0-2 /HPF WBC Urine 11-20 0-5 /HPF Squamous Epithelial Cell Urine 0-2 0-2 /HPF Bacteria Urine None Seen None Seen Hyaline Casts Urine 0-2 0-2 /LPF Urine Culture Reviewed date:03/06/2025 03:39:20 PM Interpretation: Performing Lab:[address] [phone] Notes/Report: Urine Culture Report Result Urine Culture < 10,000 cfu/ml XR lumbar spine 2-3V Reviewed date:03/12/2025 05:04:38 PM Interpretation: Performing Lab: Notes/Report: [address] [address] XRay Report Signed Patient: Tiffanie Friedman MR#: [id number] : 1945 Acct:[id number] Age/Sex: 79 / F ADM Date: 03/10/25 Loc: BLAINE Attending Dr: Kendell Vaughn MD Ordering Physician: Kendell Vaughn MD Date of Service: 03/10/25 Procedure(s): XR lumbar spine 2-3V Accession Number(s): [id number] cc: Kendell Vaughn MD EXAMINATION: XR LUMBOSACRAL [...] 03/12/25 1348 DD/ 1348 TD/TT: 03/10/25 1358 Reel Stripper: [place] [address] XRay Report Signed Patient: Tiffanie Friedman MR#: [id number] : 1945 Acct:[id number] Age/Sex: 79 / F ADM Date: 03/10/25 Loc: HO.ARIC Attending Dr: Kendell Vaughn MD Ordering Physician: Kendell Vaughn MD Date of Service: 03/10/25 Procedure(s): XR lum bar spine 2-3V Accession Number(s): [id number] cc: Kendell Vaughn MD EXAMINATION: XR LUMBOSACRAL [...] 03/12/25 1348 DD/ 1348 TD/TT: 03/10/25 1358 Reel Stripper: Complete Blood Count no Diff Reviewed date:05/26/2024 06:21:07 PM Interpretation: Performing Lab:[facility], [address] [place] [phone] Notes/Report: White Blood Count 6.5 4.8-10.8 X10*3/uL [...] catalan Reviewed date:05/28/2024 02:05:35 PM Interpretation: Performing Lab:[facility], [address] [place] [phone] Notes/Report: LEUKEMIA/LYMPHOMA [id number] BLOOD LLE Interpretation See Note See repor t from [employer] in the EMR. Comprehensive Met. Panel Reviewed date:05/26/2024 06:11:43 PM Interpretation: Performing Lab:[facility], [address] [place] [phone] Notes/Report: Sodium 139 135-145 mmol/L Potassium 4.3 [...] Glomerular Filt Rate > 60 NOTE: For -Argentine individuals, multiply the result by 1.210. Chronic [...] Ferritin Reviewed date:05/26/2024 06:01:37 PM Interpretation: Performing Lab:[facility], [address] [place] [phone] Notes/Report: Ferritin 61 10-250 ng/mL Lactate Dehydrogenase Reviewed date:05/26/2024 05:57:02 PM Interpretation: Performing Lab:[facility], [address] [place] [phone] Notes/Report: Lactate Dehydrogenase 209 122-220 U/L Vitamin B12 and Folate Reviewed date:05/26/2024 06:10:00 PM Interpretation: Performing Lab:[address] [address] Notes/Report: Vitamin B12 1459 200-900 pg/mL NORMAL 200-900 PG/ML INDETERMINATE 160-199 PG/ML DEFICIENT < 160 PG/ML Folate 13.4 > or = 4.0 ng/mL Reference Values: > or = 4.0 ng/mL < 4.0 ng/mL suggests folate deficiency Methotrexate, aminopterin and folinic acid (leucovorin) are chemotherapeutic agents whose molecular structures are similar to folate; therefore, the [employer]ician folate assay cannot be used for patients using these drugs. Thyroid Stimulating Hormone Reviewed date:05/26/2024 05:56:53 PM Interpretation: Performing Lab:[facility], [address] [place] [phone] Notes/Report: Thyroid Stimulating Hormone 0.95 0.32-4.0 uIU/mL TSH 3rd Generation ([facility]) MM tomosynthesis screening B I Reviewed date:08/25/2024 11:03:33 AM Interpretation: Performing Lab: Notes/Report: [facility] [address] [place] [address] Mammography Report Signed Patient: Tiffanie Friedman MR#: [id number] : 1945 Acct:[id number] Age/Sex: 78 / F ADM Date: 08/07/24 Loc: HO.MAMMO Attending Dr: Kendell Vaughn MD Ordering Physician: Kendell Vaughn MD Results: 1Ne gative Date of Service: 08/07/24 Follow Up: 1 Year From Orig ina Mammogram Procedure(s): MM tomosynthesis screening BI Accession Number(s): [id number] cc: Kendell Vaughn MD EXAMINATION: MM SCREENING [...] 08/19/24 1749 DD/ 1130 TD/TT: 08/07/24 1156 Reel Stripper: [facility] [address] [place] [address] Mammography Report Signed Patient: Tiffanie Friedman MR#: [id number] : 1945 Acct:[id number] Age/Sex: 78 / F ADM Date: 08/07/24 Loc: HO.MAMMO Attending Dr: Kendell Vaughn MD Ordering Physician: Kendell Vaughn MD Results: 1Ne gative Date of Service: 08/07/24 Follow Up: 1 Year From Orig ina Mammogram Procedure(s): MM tomosynthesis screening BI Accession Number(s): [id number] cc: Kendell Vaughn MD EXAMINATION: MM SCREENING DIGITAL BREAST TOMOSYNTHESIS, BILATERAL CLINICAL INFORMATION: Screening. Asymptomatic. COMPARISON: Mammography: Compari son is made with available priors TECHNIQUE: Digital [...] mammography screening. 1 year F/U This examination roberta uld not preclude the clinical evaluation of a suspicious palpable abnormality. This patient's information was entered into a reminder system with a target due date for their next mammogram. Electronically josh d by: Laurel Nguyễn DO 08/19/2024 05:49 PM EDT RP Dictated By: Laurel Nguyễn DO Signed By: <Electronically signed by Laurel Nguyễn DO in OV> 08/19/24 1749 DD/ 1130 TD/TT: 08/07/24 1156 Reel Stripper: Urine Culture Reviewed date:08/27/2024 06:47:18 PM Interpretation: Performing Lab:[address] [address] Notes/Report: Urine Culture Report Result Urine Culture < 10,000 cfu/ml Complete Blood Count Auto Di ff Reviewed date:11/24/2024 05:38:48 PM Interpretation: Performing Lab:[address] [address] Notes/Report: White Blood Count 6.7 4.8-10.8 X10*3/uL [...] Panel Reviewed date:11/24/2024 05:24:22 PM Interpretation: Performing Lab:[facility], [address] [place] [phone] Notes/Report: Sodium 140 135-145 mmol/L Potassium 4.3 [...] Antigen Reviewed date:11/24/2024 05:31:30 PM Interpretation: Performing Lab:[facility], [address] [place] [phone] Notes/Report: Carcinoembryonic Antigen 4.40 CEA Reference Range: 93.4% Non-Smokers = 0.0-3.0 ng/mL 95.6% Smokers = 0.0-5.0 ng/mL CEA Methodology: [employer] Alinity i Chemiluminescent Microparticle Immunoassay (CMIA) CEA testing can have significant value in monitoring of patients with diagnosed malignancies in whom changing concentrations of CEA are observed. Values obtained with different assay methods cannot be used interchangeably. CT abdomen pelvis w con Reviewed date:12/06/2024 12:28:50 PM Interpretation: Performing Lab: Notes/Report: [address] [address] [address] Scan Report Signed Patient: Tiffanie Friedman MR#: [id number] : 1945 Acct:[id number] Age/Sex: 79 / F ADM Date: 12/05/24 Loc: HO.CT Attending Dr: Mckayla Wang MD Ordering Physician: Mckayla Wang MD Date of Service: 12/05/24 Procedure(s): CT abdomen pelvis w IV con Accession Number(s): [id number] cc: Kendell Vaughn MD; Mckayla Wang MD Report Number: [id number]: Total DLP = 186.00 mGy-cm CLINICAL HISTORY: Colon cancer, surveillance CT abdomen and pelvis with contrast Comparison: CT/ME/SR - CT ABDOMEN PELVIS WO IV CON [...] 12/05/24 1524 DD/ 1523 TD/TT: 12/05/24 1523 Reel Stripper: [place] [address] CT Scan Report Signed Patient: Tiffanie Friedman MR#: [id number] : 1945 Acct:[id number] Age/Sex: 79 / F ADM Date: 12/05/24 Loc: HO.CT Attending Dr: Mckayla Wang MD Ordering Physician: Mckayla Wang MD Date of Service: 12/05/24 Procedure(s): CT abdomen pelvis w IV con Accession Number(s): [id number] cc: Kendell Vaughn MD; Mckayla Wang MD Report Number: [id number]: Total DLP = 186.00 mGy-cm CLINICAL HISTORY: Co joseph cancer, surveillance CT abdomen and pelvi s with contrast Comparison: CT/ME/SR - CT ABDOMEN PELVIS WO IV CON - 12/03/23 09:02 EST Findings: There is interstitia l scarring at the lung bases. No consolidation or pleural effusion. Multiple peripelvic cysts within the left kidney. Mild hydronephrosis of the bilateral kidney s. No ureteral calculus. Remaining abdominal organs are unremarkable. Th ere are no calcified gallstones. Postsurgical change of [...] 12/05/24 1524 DD/ 1523 TD/TT: 12/05/24 1523 Reel Stripper: Urine Culture Reviewed date:02/11/2025 02:05:42 PM Interpretation: Performing Lab:[facility], [address] [place] [phone] Notes/Report: O:ESCCOL Escherichia coli Urine Culture Quant Urine Culture 50,000 to 100,000 cfu/mL Ampicillin >=32 Cefazolin (Urine) 8 Cefepime <=0.12 Ceftriaxone <=0.25 Ciprofloxacin <=0.06 Gentamicin >=16 Nitrofurantoin <=16 Trimethoprim/Sulfametho xazole >=320 Urine Culture Reviewed date:02/26/2025 06:18:54 PM Interpretation: Performing Lab:[facility], [address] [place] [phone] Notes/Report: Urine Culture Report Result Urine Culture 10,000 to 50,000 cfu/ml Urine Culture Mixed bacterial travis a characteristic of Urine Culture urogenital contamination. Urine Culture (Not yet revie wed by provider) Interpretation: Performing Lab:[facility], [address] [place] [phone] Notes/Report: O:ESCCOL Escherichia coli Urine Culture Quant Urine Culture > 100,000 cfu/mL Ampicillin >=32 Cefazolin (Urine) 8 Cefepime <=0.12 Ceftriaxone <=0.25 Ciprofloxacin <=0.06 Gentamicin >=16 Nitrofurantoin <=16 Trimethoprim/Sulfametho xazole >=320 NM bone scan whole body (Not yet reviewed by provider) Interpretation:03-19-2025 Performing Lab: Notes/Report: [address] [address] Nuclear Medicine Report Signed Patient: Tiffanie Friedman MR#: [id number] : 1945 Acct:[id number] Age/Sex: 79 / F ADM Date: 03/17/25 Loc: SULEMA Attending Dr: Kendell Vaughn MD Ordering Physician: Kendell Vaughn MD Date of Service: 03/17/25 Procedure(s): NM bone scan whole body Accession Number(s): [id number] cc: Kendell Vaughn MD EXAMINATION: NM BONE SCAN WHOLE BODY HISTORY: COMPRESSION FX OF FIFTH LUMBAR VERTEBRA. TECHNIQUE: A total body bone scan was performed following the intravenous administration of 20 mCi technetium 99m-MDP. COMPARISON: Comparison is made with the prior examination dated 11/27/2023. Correlation is also made with plain films of the lumbar spine dated 03/10/2025 and cervical spine dated 12/20/2023. FINDINGS: There is a new bandlike focus of increased uptake at the L1 vertebral level corresponding to the mild compression fracture seen on plain films. Additional uptake at the L3-4 level on the right is unchanged and corresponds to degenerative disc disease. Degenerative uptake in the cervical spine is unchanged. There is mild increased activity at the shoulders and sternoclavicular joints without change, compatible with osteoarthritis. The remainder of the visualized osseous structures demonstrate a normal distribution of activity. There is normal bilateral renal uptake. NM/NM bone scan whole body IMPRESSION: Bandlike increased uptake at the L1 vertebral level corresponding to the mild compression fracture seen on plain films. Additional degenerative uptake as described above, without change. Electronically signed by: Jono Jones MD 03/17/2025 03:02 PM EDT Dictated By: Jono Jones MD Signed By: <Electronically signed by Jono Jones MD in OV> 03/17/25 1502 DD/ 1000 TD/TT: 03/17/25 1345 Reel Stripper: [place] [address] Nuclear Medicine Report Signed Patient: Tiffanie Friedman MR#: [id number] : 1945 Acct:[id number] Age/Sex: 79 / F ADM Date: 03/17/25 Loc: SULEMA Attending Dr: Kendell Vaughn MD Ordering Physician: Kendell Vaughn MD Date of Service: 03/17/25 Procedure(s): NM bon e scan whole body Accession Number(s): [id number] cc: Kendell Vaughn MD EXAMINATION: NM BONE SCAN WHOLE BODY HISTORY: COMPRESSION FX OF FIFTH LUMBAR VERTEBRA. TECHNIQUE: A total b feroz bone scan was performed following the intravenous administration of 20 mCi technetium 99m-MDP. COMPARISON: Comparis on is made with the prior examination dated 11/27/2023. Correlati on is also made with plain films of the lumbar spine dated and cervical spine dated 12/20/2023. FINDINGS: There is a new bandl margarita focus of increased uptake at the L1 vertebral level corresponding to the mild compression fracture seen on plain films. Additional uptake at the L3-4 level on the right is unchanged and corresponds to degenerative disc disease. Degenerative uptake in the cervical spine i s unchanged. There is mild increased activity at the shoulders and sternoclavicular joints without change, compatible with osteoarthritis. The remainder of the visualized osseous structures demonstrate a normal distribution of activity. There is normal bilateral renal uptake. ___ __ NM/NM bone scan whole body IMPRESSION: Bandlike increased uptake at the L1 vertebral level corresponding to the mild compression fracture seen on plain films. Additional degenerative uptake as described above, without change. Electronically josh d by: Jono Jones MD 03/17/2025 03:02 PM EDT Dictated By: Jono Jones MD Signed By: <Electronically signed by Jono Jones MD in OV> 03/17/25 1502 DD/ 1000 TD/TT: 03/17/25 1345 Reel Stripper: Reason For Referral No Information Medications Medication SIG (Take, Route, Frequency, Duration) Notes Start Date End Date Status Vitamin D (Cholecalciferol) 25 MCG (1000 UT) 1 capsule Orally Once a day Active Ciprofloxacin HCl 250 MG 1 tablet Orally every 12 hrs for 3 day(s) 03/19/2025 Active Omeprazole 20 MG 1 capsule 30 minutes before morning meal Orally Once a day Active Albuterol Sulfate HFA 108 (90 Base) MCG/ACT 2 puff as needed Inhalation every 4 hrs 02/16/2023 Active Ibuprofen 800 MG 1 TABLET ORALLY THRE E TIMES A DAY for 30 Not-Taking Vitamin C 500 MG as directed Orally Active PriLOSEC OTC 20 MG 2 tablet 30 minutes before morning meal Orally Once a day Not-Taking Cranberry 405 MG 1 capsule with meals Orally Twice a day Active Methenamine Hippurate 1 GM 1 tablet Orally Twice a day for 10 day(s) Not-Taking Stool Softener 100 MG 1 tablet as needed Orally three times a day Active tiZANidine HCl 2 MG 1 tablet as needed Orally Three times a day Not-Taking Calcium 600 MG 1 tablet with meals Orally once a day Active PARoxetine HCl 10 MG TAKE 1 TABLET BY [facility] EVERY DAY IN THE MORNING for 90 Active Ativan 0.5 MG 1 tablet as needed Orally Twice a day 06/15/2015 Not-Taking Estradiol 0.1 MG/GM 1 application Vagina l Two times a Week Active Immunizations Vaccine Route Administration Date Status Comme nts Flu Vaccine IM Intramuscular 07/11/2011 Administered Flu Vaccine IM Intramuscular 07/29/2012 Administered PPSV23 (Pnemovax) Unknown 03/07/2009 Administered Prevnar 13 IM Intramuscular 03/07/2013 Administered Flu Vaccine IM Intramuscular 07/22/2013 Administered Flu Vaccine Unknown 08/27/2014 Administered received at [facility] PPSV23 (Pnemovax) Unknown 08/27/2014 Administered recei erika at [facility] Fluarix Quadrivalent IM Intramuscular 08/09/2015 Administe red Fluarix Quadrivalent IM Intramuscular 08/09/2015 Administe red Fluarix Quadrivalent IM Intramuscular 07/27/2016 Administe red Fluarix Quadrivalent IM Intramuscular 07/30/2017 Administe red TDaP Unknown 01/14/2018 Administered pt was given the vaccine at [facility] in [place] on [facility] Fluarix Quadrivalent IM Intramuscular 07/29/2018 Administe red Fluarix Quadrivalent Unknown 07/11/2019 Administered CV S Shingrix Unknown 07/11/2019 Administered [facility] #1 PPSV23 (Pnemovax) IM Intramuscular 12/15/2019 Administered Shingrix IM Intramuscular 10/20/2019 Administered Given at [facility]. Shingles Unknown 10/20/2019 Administered Influenza High Dose IM Intramuscular 07/16/2020 Administer ed Covid Vaccine Unknown 12/16/2020 Administered Pfizer Covid Vaccine Unknown 01/06/2021 Administered Pfizer SARS-COV-2 Pfizer Unknown 08/08/2021 Administered Bassam matos'jignesh Influenza High Dose IM Intramuscular 08/09/2021 Administer ed SARS-COV-2 Pfizer Unknown 08/08/2021 Administered Influenza High Dose Unknown 08/08/2021 Administered [facility] SARS-COV-2 Pfizer Unknown 03/24/2022 Administered Influenza High [...] Problem Status W/U Status Risk Notes Problem 94711796 Age-related osteoporosis without current pathological fracture (M81.0) Active confirmed Problem 897752694 Neuropathy (G62.9) Active confirmed Problem 22042022 Restless leg syn drome (G25.81) Active confirmed Problem 148451692 Reflux esophagit is (K21.00) Active confirmed Problem 35250814 Vitamin D defici ency (E55.9) Active confirmed Problem 72207222 Anxiety (F41.9) Active confirmed Problem Dysphagia (15696036) Dysphagia (R13.10) Active confirmed Problem 398608728 Malignant neopla sm of hepatic flexure (C18.3) Active confirmed Problem 751217356 Other headache syndrome (G44.89) Active confirmed Problem 56140193 Irritable bowel syndrome without diarrhea (K58.9) Active confirmed Problem 621553611 Gastroesophageal reflux disease without esophagitis (K21.9) Active confirmed Problem 11998479 Osteoporosis (M81.0) Active confirmed Problem 365141692 Abnormal mammogr am of left breast (R92.8) Active confirmed Problem 591002963 PAC (premature a trial contraction) (I49.1) Active confirmed Problem 74580622 Oropharyngeal dysphagia (R13.12) Active confirmed Problem 10498105 Iron deficiency anemia, unspecified iron deficiency anemia type (D50.9) Active confirmed Problem 12913366292550 Pharyngeal dysph agia (R13.13) Active confirmed Problem 175329767 Vaginal bleeding (N93.9) Active confirmed Problem 70225765 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) Active confirmed Problem 994694036 Pure hypercholesterolemia (E78.00) Active confirmed Problem 734543293 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) Active confirmed Problem 89715845 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) Active confirme d Problem Plain X-ray of chest abnormal (finding) (4761052061) Abnormal chest xray (R93.89) Active confirmed Problem 79995429 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 confirmed Problem 351326562 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) Active confirmed Problem 24658979 Senile cataract, unspecified age-related cataract type, unspecified laterality (H25.9) Active confirmed Vital Signs Blood pressure diastolic 56 mm Hg 03/19/2025 Height 59.5 in 03/19/2025 Blood pressure systolic 144 mm Hg 03/19/2025 Weight 95 lbs 03/19/2025 BMI 18.86 kg/m2 03/19/2025 Encounters Encounter Location Date Provider Diagnosis Kendell Vaughn MD [address] [place] [id number] 02/23/2025 Kendell Vaughn UTI (urinary tract infection) N39.0 Kendell Vaughn MD [address] [place] [address] [id number] 03/19/2025 Kendell Vaughn Compression fracture of first lumbar vertebra, with routine healing, subsequent encounter S32.010D and UTI symptoms R39.9 Kendell Vaughn MD [address] [place] [address] [id number] 04/21/2024 Kendell Vaughn Pre-op evaluation Z0 1.818 and Senile cataract, unspecified age-related cataract type, unspecified laterality H25.9 Kendell Vaughn MD [address] [place] [address] [id number] 07/04/2024 Kendell Vaughn Palpitations R00.2 a nd Pulmonary fibrosis J84.10 Kendell Vaughn MD [address] [place] [id number] 07/31/2024 Kendell Vaughn Palpitations R00.2 ; 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 and Encounter for immunization Z23 Kendell Vaughn MD [address] [place] [id number] 08/26/2024 Kendell Vaughn Vitamin D deficiency E55.9 ; Pure hypercholesterolemia E78.00 and Iron deficiency anemia, unspecified iron deficiency anemia type D50.9 Kendell Vaughn MD [address] [place] [address] [id number] 09/05/2024 Kendell Vaughn Osteoporosis M81.0 ; Pure hypercholesterolemia E78.00 ; Vitamin D deficiency E55.9 ; Reflux esophagitis K21.00 and Depression screening Z13.31 Kendell Vaughn MD [address] [place] [address] [id number] 02/09/2025 Kendell Vaughn UTI (urinary tract infection) N39.0 Kendell Vaughn MD [address] [place] [address] [id number] 03/05/2025 Kendell Vaughn UTI (urinary tract infection) N39.0 Kendell Vaughn MD [address] [place] [id number] 03/09/2025 Kendell Vaughn Compression fracture of fifth lumbar vertebra S32.050A Kendell Vaughn MD [address] [place] [address] [id number] 04/21/2024 Kendell Vaughn MD [address] [place] [address] [id number] 09/01/2024 Kendell Vaughn Osteoporosis M81.0 Kendell Vaughn MD [address] [place] [address] [id number] 03/06/2025 Kendell Vaughn MD [address] [place] [phone] 03/09/2025 Kendell Vaughn MD [address] [place] [address] Drive [address] [place], [place] [phone] 03/10/2025 Kendell Vaughn Lumbar back pain M54 .50 Assessments Encounter Date Diagnosis (ICD Code) Assessment Notes Treatment Notes Treatment Clinical Notes Section Notes 02/23/2025 UTI (urinary tract infection) (ICD-10 - N39.0) 03/19/2025 Compression fracture of first lumbar vertebra, with routine healing, subsequent encounter (ICD-10 - S32.010D) the pain is not in the area of the compression fractuie, pending diagnostic testing 03/19/2025 UTI symptoms (ICD-10 - R39.9) patient verbalized understanding of medication and directions for use 04/21/2024 Pre-op evaluation (ICD-10 - Z01.818) patient [...] any disorders. no uti/ order faxed to [facility] CS dept , pending [...] Test Test Name Order Date Electrocardiogram (EKG) 05/28/2015 Electrocardiogram (EKG) 06/15/2016 Electrocardiogram (EKG) 07/04/2024 MRI CERVICAL SPINE NO CONTRAST MRI LUMBAR SPINE NO CONTRAST 11/30/2023 NUC WHOLE BODY SCAN BONE 11/09/2020 NUC WHOLE BODY SCAN BONE 10/19/2023 XR CERVICAL SPINE 2-3 VIEWS 06/20/2011 XR CERVICAL SPINE 4+ VIEWS 11/02/2020 XR CHEST 2 VIEW PA & LAT 02/01/2012 XR CHEST 2 VIEW PA & LAT 10/10/2022 XR CHEST 2 VIEW PA & LAT 08/14/2022 BONE DENSITY DEXA 08/09/2021 Urine Culture 03/17/2025 CA stress test 01/16/2023 ECG holter monitor 48 hour 07/04/2024 FL barium swallow 02/16/2022 FL barium swallow modified 01/12/2023 FL barium swallow modified 08/14/2022 MM tomosynthesis diagnostic BI XR DEXA axial skeleton 10/30/2023 NM bone scan whole body 03/17/2025 NM bone scan whole body 03/09/2025 XR sacroiliac joint min 3V 03/19/2025 XR hip LT min 2V 03/19/2025 XR hip LT min 2V 11/29/2023 XR lumbar spine 2-3V 11/29/2023 XR cervical spine 3V 11/29/2023 Next Appt Details Provider Name:Kendell Cadena ier, 03/26/2025 10:30:00 AM, [address] [facility], [address], [place], [place], [phone], Provider Name:Kendell Cadena ier, 09/03/2025 07:15:00 AM, [address] [place] [address], [address], [place], [place], [phone], Provider Name:Kendell Cadena ier, 09/10/2025 08:30:00 AM, [address] [place] [address], [address], [place], [place], [phone], Insurance Providers Payer Name Payer Address Payer Phone Subscriber Number Group Number Insured Name Patient Relationship to Insured Coverage Start Date Coverage End Date MEDICARE [facility] [place] [address] [id number] Tiffanie Catalan Self - patient is the insured [facility] AND [facility] [address] [place], [place] [phone] [id number] Tiffanie Catalan Self - patient is the insured Medical (General) History Medical History History ICD Code colonoscopy 10/03/2013 and 2 005 negative - no further colonoscopies indicated per Dr. Rojo:12/04/23 colonoscopy pending path pap smear - negative (10/20/2013) blood on underwear. had cysto tizanidine is zanaflex Surgical History Surgery Date(Month/Year) [place]oe, right fifth toe (Dr. Mcfarlane)
--- OUTSIDE RECORDS SUMMARY | 2025-03-19 10:54 | XMS_ITS ---
Author Organization [facility] Address [address] [place] [address] Care Team Providers Care Credit Products Officer Name Role Phone Roderick GARCIA, Kendell Primary Care Provider Jono Gamboa Unavailable [phone] Allergies Allergen (clinical drug ingredient) Drug/Non Drug [...] Problem History of malignant neoplasm of colon (243399361) Personal history of colon cancer (Z85.038) Active confirmed Problem Chronic constipation (434248966) Chronic constipation (K59.09) Active confirmed Vital Signs Blood pressure systolic 00 mm Hg 11/25/19 25 Blood pressure diastolic 00 mm Hg 025 Height 58.25 in 11/25/2024 Weight 91 lbs 11/25/2024 BMI 18.85 kg/m2 11/25/2024 Encounters Encounter Location Date Provider Diagnosis [facility] [address] [facility] [address] [place] [phone] 11/25/2024 Jono Rojo Personal history of colon [...] Provider Name:Jono Rojo , 06/22/2025 07:30:00 AM, [address] [place] [address], [phone], Progress Notes * EMIR MCNAMARAEDOB:[birth year] (79 yo F)Acc No.[id number]:11/25/2024 Progress Notes Patient:?TIFFANIE MCNAMARA Provider:?Jono Rojo MD :1945???Age:79 Y???Sex:Female D ate:11/25/2024 Address:[address] [place], [place] [phone] Pcp:Kendell Vaughn MD Subjective: * Chief Complaints: [...] Family History:?Father: dece ased 65 yrs, lung cancer/diesel locomotive firer/fireman.?Mother: 95 yrs, diagnosed with Heart disease.? No [...] for 11/25/2024) * Procedure Codes:?1036F TOBAC CO NON-SPISO4080 BP SCR NOT PRFRM REC REASON NOS [...] MD Date:? 025 Generated for Donavani rekha/Chapito/Erick on:?03/19/2025 10:54 AM EDT History and Physical Notes * [...]
--- OUTSIDE RECORDS SUMMARY | 2025-03-19 10:54 | XMS_ITS ---
Author Organization Kendell Vaughn MD Address [address] [place], [place] [phone] Care Team Providers Care Assembler Erector Name Role Phone Kendell Vaughn Primary Care Provider Results Component Value Reference Range Notes UA ClnCatch+Micro w/rflx Cul t (Not yet reviewed by provider) Interpretation: Performing Lab:[facility], [address] [place] [phone] Notes/Report: Urine, Clean Catch Color Urine Yellow Appearance Urine Turbid PH 6.0 5.0-9.0 Glucose Urine UA Negative Negative mg/dL Urine Blood Small (1+) Negative Specific Summers - Urine 1.015 1.005-1.025 Urine Protein Trace Neg-Trace mg/dL Urine Ketones Negative Negative mg/dL Nitrite Urine Positive Negative Leukocyte Esterase Urine Large (3+) Negative RBC Urine 3-5 0-2 /HPF WBC Urine >50 0-5 /HPF Squamous Epithelial Cell Urine 3-5 0-2 /HPF Bacteria Urine 4+ None Seen Hyaline Casts Urine 0-2 0-2 /LPF REASON FOR VISIT u/a Encounters Encounter Location Date Provider Diagnosis Kendell Vaughn MD [address] [place] [phone] 03/17/2025 Kendell Vaughn UTI (urinary tract infection) N39.0 Assessments Encounter Date Diagnosis (ICD Code) Assessment Notes Treatment Notes Treatment Clinical Notes Section Notes 03/17/2025 UTI (urinary tract infection) (ICD-10 - N39.0) Plan Of Treatment Pending Test Test Name Order Date UA ClnCatch+Micro w/rflx Cult 03/17/2025 Next Appt Details Provider Name:Kendell Cadena ieselene, 03/26/2025 10:30:00 AM, [address] [place] [address], [address], [phone], Provider Name:Kendell Cadena ieselene, 09/03/2025 07:15:00 AM, [address] [place] [address], [address], [phone], Provider Name:Kendell Cadena ier, 09/10/2025 08:30:00 AM, [address] [place] [address], [address], [phone], Progress Notes * Tiffanie MCNAMARA MDOB:12/1944 (79 yo F)Acc No.[id number]:03/17/2025 Progress Note Patient:?Tiffanie MCNAMARA Provider:?Kendell Vaughn MD :1945???Age:79 Y???Sex:Female D ate:03/17/2025 Address:[address] [place], [place] [phone] Subjective: * Chief Complaints: * ???1. U/a. [...] MD Date:?0 03/17/2025 Generated for Devorah da silva/Chapito/Stevesmitting on:?03/19/2025 10:54 AM EDT
--- OUTSIDE RECORDS SUMMARY | 2025-03-19 10:55 | XMS_ITS ---
Author Organization [facility] Address [address] [place] [phone] Care Team Providers Care Dry Starch Supervisor Name Role Phone Kendell Vaughn MD Primary Care Provider Jono Gamboa [phone] REASON FOR VISIT colon screening Encounters Encounter Location Date Provider Diagnosis [facility] [address] [facility] [address] [place] [phone] 01/07/2025 Jono Rojo Plan Of Treatment Next Appt Details Provider Name:Jono Rojo , 06/22/2025 07:30:00 AM, [address] [place] [address] , [place], [place], [phone], Progress Notes * EMIR MCNAMARAEDOB:[birth year] (79 yo F)Acc No.[id number]:01/07/2025 Progress Notes Patient:?KRIS MCNAMARA Provider:?Jono Rojo MD :1945???Age:79 Y???Sex:Female D ate:01/07/2025 Address:[address] [place] [address], [facility] Pcp:Kendell Vaughn MD Subjective: * Chief Complaints: [...] Date:? 025 Generated for Devorah da silva/Chapito/Erick on:?03/19/2025 10:54 AM EDT
--- OUTSIDE RECORDS SUMMARY | 2025-03-19 10:55 | XMS_ITS | Patient Health Record ---
Author Organization [facility] Address [address] [place] [address] Care Team Providers Care Smt Technician Name Role Phone Roderick GARCIA, Kendell Primary Care Provider Jono Gamboa Unavailable [phone] Allergies Allergen (clinical drug ingredient) Drug/Non Drug [...] Status Risk Notes Problem Iron deficiency anemia (08302258) Iron deficiency anemia (D50.9) Active confirmed Problem 098529407 Gastroesophageal reflux disease, esophagitis presence not specified (K21.9) Active confirmed Problem 46072305 Constipation, unspecified constipation type (K59.00) Active confirmed Problem History of malignant neoplasm of colon (429777693) Personal history of colon cancer (Z85.038) Active confirmed Problem Chronic constipation (444484680) Chronic constipation (K59.09) Active confirmed Problem 02947464 Esophageal dysphagia (R13.19) Active confirmed Problem Primary adenocarcinoma of ascending colon (533552454508879) Primary adenocarcinoma of ascending colon (C18.2) Active confirmed Vital Signs Blood pressure diastolic 00 mm Hg 11/25/2024 Height 58.25 in 11/25/2024 Blood pressure systolic 00 mm Hg 11/25/2024 Weight 91 lbs 11/25/2024 BMI 18.85 kg/m2 11/25/2024 Encounters Encounter Location Date Provider Diagnosis [facility] [address] [place] [phone] 11/25/2024 Jono Rojo Personal history of colon cancer Z85.038 ; Chronic constipation K59.09 and Gastroesophageal reflux disease, esophagitis presence not specified K21.9 [facility] [address] [place] [address] 01/08/2025 Jono Rojo Assessments Encounter Date Diagnosis [...] Name:Jono Carlos Rojo , 06/22/2025 07:30:00 AM, [address] [place] [address] , [place], [place], [phone], Insurance Providers Payer Name Payer Address Payer Phone Subscriber Number Group Number Insured Name Patient Relationship to Insured Coverage Start Date Coverage End Date MEDICARE OF [place] [address] [facility] [id number] TIFFANIE WATT Self - patient is the insured [employer] CLAIMS [address] [place] [address] [id number] TIFFANIE WATT Self - patient is the insured Medical (General) History Medical History History ICD Code Denies LA,DM,CVA,renal disease Colonoscopy 11-17-2004--internal hemorrhoi ds; neg. flex [...]
--- OUTSIDE RECORDS SUMMARY | 2025-03-19 10:55 | XMS_ITS ---
Author Organization Kendell Vaughn MD Address [address] [place] [phone] Care Team Providers Care Purchasing And Fiscal Clerk Name Role Phone Kendell Vaughn Primary Care Provider Results Component Value Reference Range Notes XR lumbar spine 2-3V Reviewed date:03/12/2025 05:04:38 PM Interpretation: Performing Lab: Notes/Report: [facility] [address] [place] [address] XRay Report Signed Patient: Tiffanie Mcnamara MR#: [id number] : 1945 Acct:[id number] Age/Sex: 79 / F ADM Date: 03/10/25 Loc: HO.XRAY Attending Dr: Kendell Vaughn MD Ordering Physician: Kendell Vaughn MD Date of Service: 03/10/25 Procedure(s): XR lumbar spine 2-3V Accession Number(s): [id number] cc: Kendell Vaughn MD EXAMINATION: XR LUMBOSACRAL [...] 03/12/25 1348 DD/ 1348 TD/TT: 03/10/25 1358 Social Sciences Lecturer: [address] [address] XRay Report Signed Patient: Tiffanie [place] i MR#: [id number] : 1945 Acct:[id number] Age/Sex: 79 / F ADM Date: 03/10/25 Loc: HO.XRAY Attending Dr: Kendell Vaughn MD Ordering Physician: Kendell Vaughn MD Date of Service: 03/10/25 Procedure(s): XR lum bar spine 2-3V Accession Number(s): [id number] cc: Kendell Vaughn MD EXAMINATION: XR LUMBOSACRAL [...] scoliosis, and advanced multilevel degenerative spondylosis. Electronically johs d by: Brennan Garcia MD 03/12/2025 01:48 PM EDT Dictated By: Brennan Garcia MD Signed By: <Henri llanes signed by Brennan Garcia MD in OV> 03/12/25 1348 DD/ 1348 TD/TT: 03/10/25 1358 Social Sciences Lecturer: REASON FOR VISIT x-ray Encounters Encounter Location Date Provider Diagnosis Kendell Vaughn MD [address] [place] [address] [place] [phone] 03/10/2025 Kendell Vaughn Lumbar back pain M54.50 Assessments Encounter Date Diagnosis (ICD Code) Assessment Notes Treatment Notes Treatment Clinical Notes Section Notes 03/10/2025 Lumbar back pain (ICD-10 - M54.50) Plan Of Treatment Next Appt Details Provider Name:Kendell Cadena ier, 03/26/2025 10:30:00 AM, [address] [facility], [address] [facility], [place], [phone], Provider Name:Kendell rodriguez, 09/03/2025 07:15:00 AM, [address] [facility], [address] [facility], [place], [phone], Provider Name:Kendell skinnerr, 09/10/2025 08:30:00 AM, [address] [facility], [address] [facility], [place], [phone], Progress Notes * Tiffanie MCNAMARA MDOB:12/1944 (79 yo F)Acc No.[id number]:03/10/2025 Patient:?Tiffanie MCNAMARA :1945???Age:79 Y???Sex:Female Address:[address] [place] [address] [place] [address] Subjective: * Chief Complaints: * ???X-ray * Medical History:? * Surgical History:? * Hospitalization/Major Diagno stic Procedure:? * Medications:? Objective: * Vitals:? * Physical Examination:? Assessment: * Assessment: 1.?Lumbar back pain - M54.50 ??? Plan: * Treatment: * Procedure Codes:? * true * Date:? Generated for Devorah da silva/Chapito/eTransmitting on:?03/19/2025 10:55 AM EDT
--- OUTSIDE RECORDS SUMMARY | 2025-03-19 10:55 | XMS_ITS | Clinical Summary ---
Author Organization [facility] Address [address] [place] [address] Care Team Providers Care Communications Project Lead Name Role Phone Kendell Vaughn MD Primary Care Provider [phone] Social History Tobacco Use Types Packs/Day Years [...] age to complete this topic Care Teams Communications Project Lead Relationship Specialty Start Date End Date Kendell Vaughn MD [address] [facility] [address] [place] [address] PCP - General Internal Medicine 04/26/21
--- OUTSIDE RECORDS SUMMARY | 2025-03-19 10:55 | XMS_ITS ---
Author Organization [facility] Address [address] [place] [address] Care Team Providers Care Tray Casting Machine Operator Name Role Phone Kendell Vaughn MD Primary Care Provider Jono Gamboa [phone] REASON FOR VISIT constipation Encounters Encounter Location Date Provider Diagnosis [facility] [address] [place] [phone] 01/08/2025 Jono Rojo Plan Of Treatment Next Appt Details Provider Name:Jono Rojo , 06/22/2025 07:30:00 AM, [address] [place] [address] , [place], [place], [phone], Progress Notes * EMIR MCNAMARAEDOB:[birth year] (79 yo F)Acc No.[id number]:01/08/2025 Patient:?KRIS MCNAMARA :1945???Age:79 Y???Sex:Female Address:[address] [place] [address], [place] [address] * true * Date:? Generated for Printi rekha/Chapito/eTransmitting on:?03/19/2025 10:55 AM EDT
--- OUTSIDE RECORDS SUMMARY | 2025-03-19 10:56 | XMS_ITS ---
Author Organization Kendell Vaughn MD Address [address] [place], [place] [id number] Care Team Providers Care Creative Designer Name Role Phone Kendell Vaughn Primary Care Provider Allergies Allergen (clinical drug ingredient) Drug/Non Drug Allergy documented on EMR Reaction Allergy Type Onset Date Status codeine Codeine Sulfate gi upset Drug Allergy A ctive sulfamethoxazole / trimethoprim Bactrim DS heart palpitations Drug Allergy Active erythromycin erythromycin (uncoded) gi upset Allergy Active Results Component Value Reference Range Notes XR hip LT min 2V (Not yet re viewed by provider) Interpretation: Performing Lab: Notes/Report: [address] [address] XRay Report Signed Patient: Tiffanie Mcnamara MR#: [id number] : 1945 Acct:[id number] Age/Sex: 79 / F ADM Date: 03/19/25 Loc: HO.XRAY Attending Dr: Kendell Vaughn MD Ordering Physician: Kendell Vaughn MD Date of Service: 03/19/25 Procedure(s): XR hip LT min 2V Accession Number(s): [id number] cc: Kendell Vaughn MD EXAMINATION: XR HIP, LEFT CLINICAL INFORMATION: Left hip pain. COMPARISON: None available. TECHNIQUE: Two views of the left hip. FINDINGS: There is mild diffuse osteopenia. No fracture, dislocation, or suspicious bone lesion. There is normal alignment. There is normal acetabular coverage. Normal femoral head contour without evidence of AVN. Minimal degenerative arthritis in the left hip joint. Amorphous calcification abutting the greater trochanter, suggestive of calcific tendinopathy of the gluteal abductor tendons. Normal-appearing soft tissues. A pessary device is noted within the inferior pelvis. XR/XR hip LT min 2V IMPRESSION: 1. Minimal degenerative arthritis left hip joint. 2. Calcific enthesopathy of the abductor tendons. Electronically signed by: Brennan Garcia MD 03/19/2025 10:50 AM EDT Dictated By: Brennan Garcia MD Signed By: <Electronically signed by Brennan Garcia MD in OV> 03/19/25 1050 DD/ 1004 TD/TT: 03/19/25 1040 Filling Winder: [address] [address] XRay Report Signed Patient: Tiffanie Welch i MR#: [id number] : 1945 Acct:[id number] Age/Sex: 79 / F ADM Date: 03/19/25 Loc: HO.XRAY Attending Dr: Kendell Vaughn MD Ordering Physician: Kendell Vaughn MD Date of Service: 03/19/25 Procedure(s): XR hip LT min 2V Accession Number(s): [id number] cc: Kendell Vaughn MD EXAMINATION: XR HIP, LEFT CLINICAL INFORMATION: Left hip pain. COMPARISON: None available. TECHNIQUE: Two views of the left hip. FINDINGS: There is mild diffus e osteopenia. No fracture, disloca tion, or suspicious bone lesion. There is normal alignment. There is normal acet abular coverage. Normal femoral head contour without evidence of AVN. Minimal degenerative arthritis in the left hip joint. Amorphous calcificat ion abutting the greater trochanter, suggestive of calcific tendinopath y of the gluteal abductor tendons. Normal-appearing sof t tissues. A pessary device is noted within the inferior pelvis. X R/XR hip LT min 2V IMPRESSION: 1. Minimal degenerat eliseo arthritis left hip joint. 2. Calcific enthesop athy of the abductor tendons. Electronically josh d by: Brennan Garcia MD 03/19/2025 10:50 AM EDT Dictated By: Brennan Garcia MD Signed By: <Henri llanes signed by Brennan Garcia MD in OV> 03/19/25 1050 DD/ 1004 TD/TT: 03/19/25 1040 Filling Winder: REASON FOR VISIT 10 day /urine culture Medications Medication SIG (Take, Route, Frequency, Duration) Notes Start Date End Date Status Cranberry 405 MG 1 capsule with meals Orally Twice a day Active Stool Softener 100 MG 1 tablet as needed Orally three times a day Active PARoxetine HCl 10 MG TAKE 1 TABLET BY [facility] EVERY DAY IN THE MORNING for 90 Active Albuterol Sulfate HFA 108 (90 Base) MCG/ACT 2 puff as needed Inhalation every 4 hrs 02/16/2023 Active Vitamin C 500 MG as directed Orally Active Methenamine Hippurate 1 GM 1 tablet Orally Twice a day for 10 day(s) Not-Taking tiZANidine HCl 2 MG 1 tablet as needed Orally Three times a day Not-Taking Ativan 0.5 MG 1 tablet as needed Orally Twice a day 06/15/2015 Not-Taking Ibuprofen 800 MG 1 TABLET ORALLY THRE E TIMES A DAY for 30 Not-Taking PriLOSEC OTC 20 MG 2 tablet 30 minutes before morning meal Orally Once a day Not-Taking Estradiol 0.1 MG/GM 1 application Vagina l Two times a Week Active Vitamin D (Cholecalciferol) 25 MCG (1000 UT) 1 capsule Orally Once a day Active Omeprazole 20 MG 1 capsule 30 minutes before morning meal Orally Once a day Active Calcium 600 MG 1 tablet with meals Orally once a day Active Ciprofloxacin HCl 250 MG 1 tablet Orally every 12 hrs for 3 day(s) 03/19/2025 Active Vital Signs Blood pressure systolic 144 mm Hg 03/19/20 25 Blood pressure diastolic 56 mm Hg 025 Height 59.5 in 03/19/2025 Weight 95 lbs 03/19/2025 BMI 18.86 kg/m2 03/19/2025 Encounters Encounter Location Date Provider Diagnosis Kendell Vaughn MD [address] [place] [address] Drive [address] [place], [place] [id number] 03/19/2025 Kendell Vaughn Compression fracture of first lumbar vertebra, with routine healing, subsequent encounter S32.010D and UTI symptoms R39.9 Assessments Encounter Date Diagnosis (ICD Code) Assessment Notes Treatment Notes Treatment Clinical Notes Section Notes 03/19/2025 Compression fracture of first lumbar vertebra, with routine healing, subsequent encounter (ICD-10 - S32.010D) the pain is not in the area of the compression fractuie, pending diagnostic testing 03/19/2025 UTI symptoms (ICD-10 - R39.9) patient verbalized understanding of medication and directions for use Plan Of Treatment Medication Medication Name Sig Start Date Stop Date Notes Ciprofloxacin HCl 250 MG 1 tablet Orally every 12 hrs for 3 day(s) 03/19/2025 Treatment Notes Assessment Notes Compression fracture of firs t lumbar vertebra, with routine healing, subsequent encounter the pain is not in the area of the compression fractuie, pending diagnostic testing UTI symptoms patient verbalized u nderstanding of medication and directions for use Pending Test Test Name Order Date XR sacroiliac joint min 3V 03/19/2025 XR hip LT min 2V 03/19/2025 Future Test Test Name Order Date Urinalysis and Microscopic 03/26/2025 Urine Culture 03/26/2025 Next Appt Details Follow Up: 1 Week, Reason: Provider Name:Kendell rodriguez, 03/26/2025 10:30:00 AM, [address], [address], [place], [place], [id number], Provider Name:Kendell rodriguez, 09/03/2025 07:15:00 AM, [address], [address], [place], [id number], Provider Name:Kendell rodriguez, 09/10/2025 08:30:00 AM, [address], [address], [place], [id number], Progress Notes * Tiffanie MCNAMARA MDOB:12/1944 (79 yo F)Acc No.[id number]:03/19/2025 Patient:?Tiffanie MCNAMARA Provider:?Kendell Vaughn MD :1945???Age:79 Y???Sex:Female D ate:03/19/2025 Address:[address] [place], [place] [id number] Subjective: * Chief Complaints: * ???1. 10 day /urine culture. * HPI: ???Symptom(s):? patient is a 79 yo female here for 10 kelly follow up recent UTI. * ROS:?General/Constitutional:?Denies?Chills.?Denies?Fatigue.?Denies?Fever.?Denies?Headache.?ENT:?Denies?Sore throat.?Respiratory:?Denies?Cough.?Denies?Shortness of breath at rest.?Denies?Shortness of breath with exertion.?Gastrointestinal:?Denies?Diarrhea.?Denies?Nausea.?Genitourinary:?Denies?Abdominal pain/swelling.?Denies?Blood in urine.?Admits?Difficulty urinating.?Admits?Frequent urination.?Admits?Pain in lower back.?Admits?Painful urination.? * Medical History:?colonoscopy 10/03/2013 and 2005 negative - no further colonoscopies indicated per [...] tablet as needed Orally Twice a day , Discontinued Cephalexin 500 MG Capsule 1 capsule Orally twice a dayt , Discontinued Cephalexin 500 MG Capsule 1 capsule Orally twice a day , Medication List reviewed and reconciled with the patient * Allergies:?erythromycin: gi upset, Codeine Sulfate: gi upset, Bactrim DS: heart palpitations. Objective: * Vitals:?Ht: 59.5, Wt: 95, BM I:18.86, BP:144/56, Wt-k.09. * Examination: ???General Examination: ?GENERAL APPEARANCE:?alert, well hydrated, in no distress.?SKIN:?good turgor.?HEART:?regular rate and rhythm, no murmurs, rubs, gallops.?LUNGS:?no wheezes, rales, rhonchi, good air movement, clear to auscultation bilaterally.?ABDOMEN:?tenderness over bladder.?EXTREMITIES:?pain in area of si joint and hip not in the area of the compression fracture.? Assessment: * Assessment: 1.?Compression fracture of f irst lumbar vertebra, with routine healing, subsequent encounter - S32.010D (Primary)???2.?UTI symptoms - R39.9??? Plan: * Treatment: 2.?UTI symptoms? Start Ciprofloxacin HCl Tablet, 250 MG, 1 tablet, Orally, every 12 hrs, 3 day(s), 6.?? Notes: patient verbalized understanding of medication and directions for use?? * Follow Up:?1 Week * * The named appointment provid er may or may not be the originator of this progress note, and it is not deemed complete until electronically signed by the appointment provider. Sign off status: Pending * Provider:?Kendell Vaughn MD Date:?0 03/19/2025 Generated for Devorah da silva/Chapito/eTransmitting on:?03/19/2025 10:55 AM EDT History and Physical Notes * HPI (History of Present Illness) Category Sub-Category Detail Notes Category Not es Symptom(s) patient is a 79 yo female here for 10 kelly follow up recent UTI Examination Category Sub-Category Detail Notes Category Not es General Examination GENERAL APPEARANCE: alert, w ell hydrated, in no distress HEART: regular rate and rhy thm, no murmurs, rubs, gallops LUNGS: no wheezes, rales, r honchi, good air movement, clear to auscultation bilaterally ABDOMEN: tenderness over blad wilman SKIN: good turgor EXTREMITIES: pain in area of si j oint and hip not in the area of the compression fracture
== END 2025-03-19 09:57 | disposition home or self-care (01) ==
LOC: HO.XRAY 09:56
PROVIDERS: PCP Internal Medicine; Visit Provider Internal Medicine
DX: S32.010D Wedge compression fracture of first lumbar vertebra, subsequent encounter for fracture with routine healing (principal)
CPT/HCPCS: 72202; 73502

== ENCOUNTER → 2025-03-19 10:04 | Outpatient (BNV) | payer MEDICARE, SELFPAY | PROVIDERS: PCP Internal Medicine; Visit Provider Radiology Diagnostic Radiology | DX: M47.896 Other spondylosis, lumbar region (principal); M76.892 Other specified enthesopathies of left lower limb, excluding foot | CPT/HCPCS: 72202; 73502 ==

== ENCOUNTER 2025-03-26 13:42 | Outpatient (REF) | payer MEDICARE, SELFPAY ==
[2025-03-26 13:48] LABS: Appearance Urine Clear; Color Urine Yellow; Glucose Urine UA Negative (Negative); Leukocyte Esterase Urine Small (1+) (Negative); Nitrite Urine Negative (Negative); Specific Gravity - Urine 1.015 (1.005-1.025); UMIC TRIGGER UACC YES; Urine Blood Trace (Negative); Urine Ketones Negative (Negative); Urine Protein Negative (Neg-Trace)
[2025-03-26 14:00] LABS: Bacteria Urine None Seen (None Seen); Hyaline Casts Urine 0-2 /LPF (0-2); RBC Urine 0-2 /HPF (0-2); Squamous Epithelial Cell Urine 0-2 /HPF (0-2); UACC Culture Trigger YES; WBC Urine 0-5 /HPF (0-5)
--- OUTSIDE RECORDS SUMMARY | 2025-03-26 14:19 | XMS_ITS | Patient Health Record ---
Author Organization Kendell Vaughn MD Address [address] [place] [phone] Care Team Providers Care Medical Records Custodian Name Role Phone Kendell Vaughn Primary Care Provider [phone] Allergies Allergen (clinical drug ingredient) Drug/Non Drug Allergy documented on EMR Reaction Allergy Type Onset Date Status codeine Codeine Sulfate gi upset Drug Allergy A ctive sulfamethoxazole / trimethoprim Bactrim DS heart palpitations Drug Allergy Active erythromycin erythromycin (uncoded) gi upset Allergy Active Results Component Value Reference Range Notes UA ClnCatch+Micro w/rflx Cul t Reviewed date:02/24/2025 09:53:03 AM Interpretation: Performing Lab:[facility], [address] [place] [phone] Notes/Report: Urine, Clean Catch Color Urine Yellow Appearance Urine Turbid PH 8.0 5.0-9.0 Glucose Urine UA Negative Negative mg/dL Urine Blood Negative Negative Specific [place] - Urine 1.015 1.005-1.025 Urine Protein Negative Neg-Trace mg/dL Urine Ketones Negative Negative mg/dL Nitrite Urine Negative Negative Leukocyte Esterase Urine Large (3+) Negative RBC Urine 0-2 0-2 /HPF WBC Urine 0-5 0-5 /HPF Squamous Epithelial Cell Urine 6-10 0-2 /HPF Bacteria Urine None Seen None Seen Hyaline Casts Urine 0-2 0-2 /LPF UA ClnCatch+Micro w/rflx Cul t (Not yet reviewed by provider) Interpretation: Performing Lab:[address] [address] Notes/Report: Urine, Clean Catch Color Urine Yellow Appearance Urine Clear PH 6.0 5.0-9.0 Glucose Urine UA Negative Negative mg/dL Urine Blood Trace Negative Specific [place] - Urine 1.015 1.005-1.025 Urine Protein Negative Neg-Trace mg/dL Urine Ketones Negative Negative mg/dL Nitrite Urine Negative Negative Leukocyte Esterase Urine Small (1+) Negative RBC Urine 0-2 0-2 /HPF WBC Urine 0-5 0-5 /HPF Squamous Epithelial Cell Urine 0-2 0-2 /HPF Bacteria Urine None Seen None Seen Hyaline Casts Urine 0-2 0-2 /LPF Complete Blood Count Auto Di ff Reviewed date:08/27/2024 06:47:49 PM Interpretation: Performing Lab:[address] [address] Notes/Report: White Blood Count 5.2 4.8-10.8 X10*3/uL [...] NRBC Abs Auto 0.000 0.0-0.012 X10*3/uL Comprehensive [place]. Panel Fa st Reviewed date:08/28/2024 09:26:45 PM Interpretation: Performing Lab:[facility], [address] [place] [phone] Notes/Report: Sodium 139 135-145 mmol/L Potassium 4.2 3.3-5.1 mmol/L Chloride 103 96-108 mmol/L Carbon Dioxide 30 22-29 mmol/L Anion Gap 10 12-20 Blood Urea Nitrogen 17 9-16 mg/dL Creatinine 0.69 0.5-1.4 mg/dL Estimated Glomerular Filt Rate > 60 NOTE: For -Macedonian individuals, multiply the result by 1.210. Chronic [...] PROFILE Reviewed date:08/27/2024 06:41:00 PM Interpretation: Performing Lab:[address] [address] Notes/Report: Iron 123 30-160 mcg/dL Total Iron Binding Capacity 284 228-428 mcg/dL Percent Iron Saturation 43 15-50 % Unsaturated Iron Binding 161 Lipid Panel Reviewed date:08/27/2024 06:41:40 PM Interpretation: Performing Lab:[facility], [address] [place] [phone] Notes/Report: Triglycerides 60 <150 mg/dL Desirable Triglyceride: [...] t Reviewed date:08/28/2024 09:35:22 PM Interpretation: Performing Lab:[facility], [address] [place] [address] Notes/Report: Urine, Clean Catch Color Urine Yellow Appearance Urine Clear PH 7.5 5.0-9.0 Glucose Urine UA Negative Negative mg/dL Urine Blood Negative Negative Specific [place] - Urine 1.015 1.005-1.025 Urine Protein Negative [...] t Reviewed date:02/10/2025 09:39:40 AM Interpretation: Performing Lab:[address] [address] Notes/Report: Urine, Clean Catch Color Urine Yellow Appearance Urine Cloudy PH 5.5 5.0-9.0 Glucose Urine UA Negative Negative mg/dL Urine Blood Large (3+) Negative Specific [place] - Urine 1.010 1.005-1.025 Urine Protein 30 (1+) Neg-Trace mg/dL Urine Ketones Negative Negative mg/dL Nitrite Urine Negative Negative Leukocyte Esterase Urine Large (3+) Negative RBC Urine >20 0-2 /HPF WBC Urine >50 0-5 /HPF Squamous Epithelial Cell Urine 0-2 0-2 /HPF Bacteria Urine Trace None Seen Hyaline Casts Urine 0-2 0-2 /LPF Urinalysis and Microscopic Reviewed date:03/05/2025 04:52:46 PM Interpretation: Performing Lab:[address] [address] Notes/Report: Color Urine Yellow Appearance Urine Clear PH 6.5 5.0-9.0 Glucose Urine UA Negative Negative mg/dL Urine Blood Negative Negative Specific [place] - Urine <= 1.005 1.005-1.025 Urine Protein Negative Neg-Trace mg/dL Urine Ketones Negative Negative mg/dL Nitrite Urine Negative Negative Leukocyte Esterase Urine Large (3+) Negative RBC Urine 0-2 0-2 /HPF WBC Urine 11-20 0-5 /HPF Squamous Epithelial Cell Urine 0-2 0-2 /HPF Bacteria Urine None Seen None Seen Hyaline Casts Urine 0-2 0-2 /LPF Urine Culture Reviewed date:03/06/2025 03:39:20 PM Interpretation: Performing Lab:[address] [address] Notes/Report: Urine Culture Report Result Urine Culture < 10,000 cfu/ml XR sacroiliac joint min 3V Reviewed date:03/19/2025 12:25:53 PM Interpretation: Performing Lab: Notes/Report: [address] [address] XRay Report Signed Patient: Tiffanie Friedman MR#: [id number] : 1945 Acct:[id number] Age/Sex: 79 / F ADM Date: 03/19/25 Loc: BLAINE Attending Dr: Kendell Vaughn MD Ordering Physician: Kendell Vaughn MD Date of Service: 03/19/25 Procedure(s): XR sacroiliac joint min 3V Accession Number(s): [id number] cc: Kendell Vaughn MD EXAMINATION: XR SACROILIAC JOINTS CLINICAL INFORMATION: COMPRESSION FX FIRST LUMBAR VIRTEBRA,ROUTINE HEALING COMPARISON: None available. TECHNIQUE: 3 views of the sacroiliac joints FINDINGS: There is mild diffuse osteopenia. Sacrum is intact. There are mild degenerative changes in both SI joints without evidence of inflammatory erosions. Advanced degenerative spondylosis of the lower lumbar spine. There is a pessary device in the inferior pelvis. XR/XR sacroiliac joint min 3V IMPRESSION: 1. Mild degenerative changes in the sacroiliac joints without evidence of inflammatory arthropathy. 2. No acute bony abnormalities. 3. Advanced spondylosis of the imaged lumbar spine. Electronically signed by: Brennan Garcia MD 03/19/2025 10:52 AM EDT Dictated By: Brennan Garcia MD Signed By: <Electronically signed by Brennan Garcia MD in OV> 03/19/25 1052 DD/ 1025 TD/TT: 03/19/25 1040 Mental Retardation Aide: [place] [address] XRay Report Signed Patient: Tiffanie Friedman MR#: [id number] : 1945 Acct:[id number] Age/Sex: 79 / F ADM Date: 03/19/25 Loc: BLAINE Attending Dr: Kendell Vaughn MD Ordering Physician: Kendell Vaughn MD Date of Service: 03/19/25 Procedure(s): XR sacroiliac joint min 3V Accession Number(s): [id number] cc: Kendell Vaughn MD EXAMINATION: XR SACROILIAC JOINTS CLINICAL INFORMATION: COMPRESSION FX FIRST LUMBAR VIRTEBRA,ROUTINE HEALING COMPARISON: None available. TECHNIQUE: 3 views of the sacroiliac joints FINDINGS: There is mild diffus e osteopenia. Sacrum is intact. Th ere are mild degenerative changes in both SI joints without evidence of inflammatory erosions. Advanced degenerativ e spondylosis of the lower lumbar spine. There is a pessary device in the inferior pelvis. XR/XR sacroiliac joint min 3V IMPRESSION: 1. Mild degenerative changes in the sacroiliac joints without evidence of inflammatory arthropathy. 2. No acute bony abnormalities. 3. 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 Electronically josh d by: Brennan Garcia MD 03/19/2025 10:52 AM EDT Dictated By: Brennan Garcia MD Signed By: <Electronically signed by Brennan Garcia MD in OV> 03/19/25 1052 DD/ 1025 TD/TT: 03/19/25 1040 Mental Retardation Aide: XR hip LT min 2V Reviewed date:03/19/2025 12:26:24 PM Interpretation: Performing Lab: Notes/Report: [place] [address] XRay Report Signed Patient: Tiffanie Friedman MR#: [id number] : 1945 Acct:[id number] Age/Sex: 79 / F ADM Date: 03/19/25 Loc: HO.ARIC Attending Dr: Kendell Vaughn MD Ordering Physician: Kendell Vaughn MD Date of Service: 03/19/25 Procedure(s): XR hip LT min 2V Accession Number(s): [id number] cc: Kendell Vaughn MD EXAMINATION: XR HIP, [...] 03/19/25 1050 DD/ 1004 TD/TT: 03/19/25 1040 Mental Retardation Aide: [place] [address] XRay Report Signed Patient: Tiffanie Friedman MR#: [id number] : 1945 Acct:[id number] Age/Sex: 79 / F ADM Date: 03/19/25 Loc: HO.XRAY Attending Dr: Kendell Vaughn MD Ordering Physician: Kendell Vaughn MD Date of Service: 03/19/25 Procedure(s): XR hip LT min 2V Accession Number(s): [id number] cc: Kendell Vaughn MD EXAMINATION: XR HIP, LEFT CLINICAL INFORMATION: Left hip pain. COMPARISON: None available. TECHNIQUE: Two views of the lef t hip. FINDINGS: There is mild diffus e osteopenia. No fracture, dislocation, or suspicious bone [...] eliseo arthritis left hip joint. 2. Calcific enthesopathy of the abductor tendons. Electronically josh d by: Brennan Garcia MD 03/19/2025 10:50 AM EDT RP Dictated By: Brennan Garcia MD Signed By: <Electronically signed by Brennan Garcia MD in OV> 03/19/25 1050 DD/ 1004 TD/TT: 03/19/25 1040 Mental Retardation Aide: XR lumbar spine 2-3V Reviewed date:03/12/2025 05:04:38 PM Interpretation: Performing Lab: Notes/Report: [address] [address] XRay Report Signed Patient: Tiffanie Friedman MR#: [id number] : 1945 Acct:[id number] Age/Sex: 79 / F ADM Date: 03/10/25 Loc: HO.ARIC Attending Dr: Kendell Vaughn MD Ordering Physician: Kendell Vaughn MD Date of Service: 03/10/25 Procedure(s): XR lumbar spine 2-3V Accession Number(s): [id number] cc: Kendell Vaughn MD EXAMINATION: XR LUMBOSACRAL [...] 03/12/25 1348 DD/ 1348 TD/TT: 03/10/25 1358 Mental Retardation Aide: [place] [address] XRay Report Signed Patient: Tiffanie Friedman MR#: [id number] : 1945 Acct:[id number] Age/Sex: 79 / F ADM Date: 03/10/25 Loc: HO.XRAY Attending Dr: Kendell Vaughn MD Ordering Physician: Kendell Vaughn MD Date of Service: 03/10/25 Procedure(s): XR lum bar spine 2-3V Accession Number(s): [id number] cc: Kendell Vaughn MD EXAMINATION: XR LUMBOSACRAL [...] 03/12/25 1348 DD/ 1348 TD/TT: 03/10/25 1358 Mental Retardation Aide: Complete Blood Count no Diff Reviewed date:05/26/2024 06:21:07 PM Interpretation: Performing Lab:[facility], [address] [place] [address] Notes/Report: White Blood Count 6.5 4.8-10.8 X10*3/uL [...] Auto 0.000 0.0-0.012 X10*3/uL Leukemia/Lymphoma Eval. Dotty d Reviewed date:05/28/2024 02:05:35 PM Interpretation: Performing Lab:[facility], [address] [place] [phone] Notes/Report: LEUKEMIA/LYMPHOMA [id number] BLOOD LLE Interpretation See Note See repor t from [employer] in the EMR. Comprehensive Met. Panel Reviewed date:05/26/2024 06:11:43 PM Interpretation: Performing Lab:[facility], [address] [place] [phone] Notes/Report: Sodium 139 135-145 mmol/L Potassium 4.3 [...] Glomerular Filt Rate > 60 NOTE: For -Macedonian individuals, multiply the result by 1.210. Chronic [...] Ferritin Reviewed date:05/26/2024 06:01:37 PM Interpretation: Performing Lab:[facility], [address] [place] [phone] Notes/Report: Ferritin 61 10-250 ng/mL Lactate Dehydrogenase Reviewed date:05/26/2024 05:57:02 PM Interpretation: Performing Lab:[facility], [address] [place] [phone] Notes/Report: Lactate Dehydrogenase 209 122-220 U/L Vitamin B12 and Folate Reviewed date:05/26/2024 06:10:00 PM Interpretation: Performing Lab:[facility], [address] [place] [phone] Notes/Report: Vitamin B12 1459 200-900 pg/mL NORMAL 200-900 PG/ML INDETERMINATE 160-199 PG/ML DEFICIENT < 160 PG/ML Folate 13.4 > or = 4.0 ng/mL Reference Values: > or = 4.0 ng/mL < 4.0 ng/mL suggests folate deficiency Methotrexate, aminopterin and folinic acid (leucovorin) are chemotherapeutic agents whose molecular structures are similar to folate; therefore, the [employer] folate assay cannot be used for patients using these drugs. Thyroid Stimulating Hormone Reviewed date:05/26/2024 05:56:53 PM Interpretation: Performing Lab:[facility], [address] [facility], [place] [address] Notes/Report: Thyroid Stimulating Hormone 0.95 0.32-4.0 uIU/mL TSH 3rd Generation ([facility]) MM tomosynthesis screening B I Reviewed date:08/25/2024 11:03:33 AM Interpretation: Performing Lab: Notes/Report: [facility] [address] [place] [address] Mammography Report Signed Patient: Tiffanie Friedman MR#: [id number] : 1945 Acct:[id number] Age/Sex: 78 / F ADM Date: 08/07/24 Loc: HO.MAMMO Attending Dr: Kendell Vaughn MD Ordering Physician: Kendell Vaughn MD Results: 1Ne gative Date of Service: 08/07/24 Follow Up: 1 Year From [facility] Mammogram Procedure(s): MM tomosynthesis screening BI Accession Number(s): [id number] cc: Kendell Vaughn MD EXAMINATION: MM SCREENING [...] signed by Laurel Nguyễn DO in OV> 08/19/241748 DD/ 1130 TD/TT: 08/07/24 1156 Mental Retardation Aide: [facility] [address] [place], [place] [address] Mammography Report Signed Patient: Tiffanie Friedman MR#: [id number] : 1945 Acct:[id number] Age/Sex: 78 / F ADM Date: 08/07/24 Loc: HO.MAMMO Attending Dr: Kendell Vaughn MD Ordering Physician: Kendell Vaughn MD Results: 1Ne gative Date of Service: 08/07/24 Follow Up: 1 Year From Orig ina Mammogram Procedure(s): MM tomosynthesis screening BI Accession Number(s): [id number] cc: Kendell Vaughn MD EXAMINATION: MM SCREENING [...] signed by Laurel Nguyễn DO in OV> 08/19/241748 DD/ 1130 TD/TT: 08/07/24 1156 Mental Retardation Aide: Urine Culture Reviewed date:08/27/2024 06:47:18 PM Interpretation: Performing Lab:[address] [address] Notes/Report: Urine Culture Report Result Urine Culture < 10,000 cfu/ml Complete Blood Count Auto Di ff Reviewed date:11/24/2024 05:38:48 PM Interpretation: Performing Lab:[facility], [address] [place] [phone] Notes/Report: White Blood Count 6.7 4.8-10.8 X10*3/uL [...] Panel Reviewed date:11/24/2024 05:24:22 PM Interpretation: Performing Lab:[facility], [address] [place] [phone] Notes/Report: Sodium 140 135-145 mmol/L Potassium 4.3 [...] Antigen Reviewed date:11/24/2024 05:31:30 PM Interpretation: Performing Lab:[facility], [address] [place] [phone] Notes/Report: Carcinoembryonic Antigen 4.40 CEA Reference Range: [...] date:12/06/2024 12:28:50 PM Interpretation: Performing Lab: Notes/Report: [address] [address] [address] Scan Report Signed Patient: Tiffanie Friedman MR#: [id number] : 1945 Acct:[id number] Age/Sex: 79 / F ADM Date: 12/05/24 Loc: HO.CT Attending Dr: Mckayla Wang MD Ordering Physician: Mckayla Wang MD Date of Service: 12/05/24 Procedure(s): CT abdomen pelvis w IV con Accession Number(s): [id number] cc: Kendell Vaughn MD; Mckayla Wang MD Report Number: [id number]: Total DLP = 186.00 mGy-cm CLINICAL HISTORY: Colon cancer, surveillance CT abdomen and pelvis with contrast Comparison: CT/IL/SR - CT ABDOMEN PELVIS WO IV CON [...] 12/05/24 1524 DD/ 1523 TD/TT: 12/05/24 1523 Mental Retardation Aide: [address] [address] [address] Scan Report Signed Patient: Tiffanie Friedman MR#: [id number] : 1945 Acct:[id number] Age/Sex: 79 / F ADM Date: 12/05/24 Loc: HO.CT Attending Dr: Mckayla Wang MD Ordering Physician: Mckayla Wang MD Date of Service: 12/05/24 Procedure(s): CT abdomen pelvis w IV con Accession Number(s): [id number] cc: Kendell Vaughn MD; Mckayla Wang MD Report Number: [id number]: Total DLP = 186.00 mGy-cm CLINICAL HISTORY: Co joseph cancer, surveillance CT abdomen and pelvi s with contrast Comparison: CT/IL/SR - CT ABDOMEN PELVIS WO IV CON [...] 12/05/24 1524 DD/ 1523 TD/TT: 12/05/24 1523 Mental Retardation Aide: Urine Culture Reviewed date:02/11/2025 02:05:42 PM Interpretation: Performing Lab:[address] [address] Notes/Report: O:ESCCOL Escherichia coli Urine Culture Quant Urine Culture 50,000 to 100,000 cfu/mL Ampicillin >=32 Cefazolin (Urine) 8 Cefepime <=0.12 Ceftriaxone <=0.25 Ciprofloxacin <=0.06 Gentamicin >=16 Nitrofurantoin <=16 Trimethoprim/Sulfametho xazole >=320 Urine Culture Reviewed date:02/26/2025 06:18:54 PM Interpretation: Performing Lab:[address] [place] [address] Notes/Report: Urine Culture Report Result Urine Culture 10,000 to 50,000 cfu/ml Urine Culture Mixed bacterial travis a characteristic of Urine Culture urogenital contamination. Urine Culture Reviewed date:03/19/2025 12:28:52 PM Interpretation: Performing Lab:[facility], [address] [place] [address] Notes/Report: O:ESCCOL Escherichia coli Urine Culture Quant Urine Culture > 100,000 cfu/mL Ampicillin >=32 Cefazolin (Urine) 8 Cefepime <=0.12 Ceftriaxone <=0.25 Ciprofloxacin <=0.06 Gentamicin >=16 Nitrofurantoin <=16 Trimethoprim/Sulfametho xazole >=320 NM bone scan whole body Reviewed date:03/19/2025 12:29:02 PM Interpretation:03-19-2025 Performing Lab: Notes/Report: [address] [address] Nuclear Medicine Report Signed Patient: Tiffanie Friedman MR#: [id number] : 1945 Acct:[id number] Age/Sex: 79 / F ADM Date: 03/17/25 Loc: SULEMA Attending Dr: Kendell Vaughn MD Ordering Physician: Kendell Vaughn MD Date of Service: 03/17/25 Procedure(s): NM bone scan whole body Accession Number(s): [id number] cc: Kendell Vaughn MD EXAMINATION: NM BONE [...] Jono Jones MD 03/17/2025 03:02 PM EDT RP Dictated By: Jono Jones MD Signed By: <Electronically signed by Jono Jones MD in OV> 03/17/25 1502 DD/ 1000 TD/TT: 03/17/25 1345 Mental Retardation Aide: [place] [address] Nuclear Medicine Report Signed Patient: Tiffanie Friedman MR#: [id number] : 1945 Acct:[id number] Age/Sex: 79 / F ADM Date: 03/17/25 Loc: SULEMA Attending Dr: Kendell Vaughn MD Ordering Physician: Kendell Vaughn MD Date of Service: 03/17/25 Procedure(s): NM bon e scan whole body Accession Number(s): [id number] cc: Kendell Vaughn MD EXAMINATION: NM BONE [...] Jono Jones MD 03/17/2025 03:02 PM EDT RP Dictated By: Jono Jones MD Signed By: <Electronically signed by Jono Jones MD in OV> 03/17/25 1502 DD/ 1000 TD/TT: 03/17/25 1345 Mental Retardation Aide: Reason For Referral Reason Lumbar disc disease Diagnosis 1 Lumbar disc disease (M51.9) Referral Organization Kendell Vaughn MD Referring Provider First Name Kendell Referring Provider Last Name Roderick Referring Provider Speciality Internal M edicine Referred Provider Felix Thompson Referred Provider Specialty Neurosurgery General Notes Yamile Bennett 0 03/26/2025 10:52:09 AM > MRI pending Referral Priority Routine Medications Medication SIG (Take, Route, Frequency, Duration) Notes Start Date End Date Status Calcium 600 MG 1 tablet with meals Orally once a day Active Estradiol 0.1 MG/GM 1 application Vagina l Two times a Week Active Ativan 0.5 MG 1 tablet as needed Orally Twice a day 06/15/2015 Not-Taking PARoxetine HCl 10 MG TAKE 1 TABLET BY MO UT EVERY DAY IN THE MORNING for 90 Active PriLOSEC OTC 20 MG 2 tablet 30 minutes before morning meal Orally Once a day Not-Taking Omeprazole 20 MG 1 capsule 30 minutes before morning meal Orally Once a day Active Vitamin D (Cholecalciferol) 25 MCG (1000 UT) 1 capsule Orally Once a day Active Stool Softener 100 MG 1 tablet as needed Orally three times a day Active Methenamine Hippurate 1 GM 1 tablet Orally Twice a day for 10 day(s) Not-Taking Cranberry 405 MG 1 capsule with meals Orally Twice a day Active Vitamin C 500 MG as directed Orally Active Ibuprofen 800 MG 1 TABLET ORALLY THRE E TIMES A DAY for 30 Not-Taking Albuterol Sulfate HFA 108 (90 Base) MCG/ACT 2 puff as needed Inhalation every 4 hrs 02/16/2023 Active tiZANidine HCl 2 MG 1 tablet as needed Orally Three times a day Not-Rustam ing Immunizations Vaccine Route Administration Date Status Comme nts Flu Vaccine IM Intramuscular 07/11/2011 Administered Flu Vaccine IM Intramuscular 07/29/2012 Administered PPSV23 (Pnemovax) Unknown 03/07/2009 Administered Prevnar 13 IM Intramuscular 03/07/2013 Administered Flu Vaccine IM Intramuscular 07/22/2013 Administered Flu Vaccine Unknown 08/27/2014 Administered received at [facility] PPSV23 (Pnemovax) Unknown 08/27/2014 Administered recei erika at [facility] Fluarix Quadrivalent IM Intramuscular 08/09/2015 Administe red Fluarix Quadrivalent IM Intramuscular 08/09/2015 Administe red Fluarix Quadrivalent IM Intramuscular 07/27/2016 Administe red Fluarix Quadrivalent IM Intramuscular 07/30/2017 Administe red TDaP Unknown 01/14/2018 Administered pt was given the vaccine at [facility] in [place] on [facility] Fluarix Quadrivalent IM Intramuscular 07/29/2018 Administe red Fluarix Quadrivalent Unknown 07/11/2019 Administered CV S Shingrix Unknown 07/11/2019 Administered [facility] PPSV23 (Pnemovax) IM Intramuscular 12/15/2019 Administered Shingrix IM Intramuscular 10/20/2019 Administered Given at [facility]. Shingles Unknown 10/20/2019 Administered Influenza High Dose [...] Problem Status W/U Status Risk Notes Problem 48408499 Age-related osteoporosis without current pathological fracture (M81.0) Active confirmed Problem 325597012 Neuropathy (G62.9) Active confirmed Problem 43396579 Restless leg syn drome (G25.81) Active confirmed Problem 846453607 Reflux esophagit is (K21.00) Active confirmed Problem 78845911 Vitamin D defici ency (E55.9) Active confirmed Problem 68419485 Anxiety (F41.9) Active confirmed Problem Dysphagia (62394310) Dysphagia (R13.10) Active confirmed Problem 056826470 Malignant neopla sm of hepatic flexure (C18.3) Active confirmed Problem 015577010 Other headache syndrome (G44.89) Active confirmed Problem 35792448 Irritable bowel syndrome without diarrhea (K58.9) Active confirmed Problem Disorder of lumbar disc (942590689) Lumbar disc disease (M51.9) Active confirmed Problem 459814191 Gastroesophageal reflux disease without esophagitis (K21.9) Active confirmed Problem 33823426 Osteoporosis (M81.0) Active confirmed Problem 387178943 Abnormal mammogr am of left breast (R92.8) Active confirmed Problem 268873969 PAC (premature a trial contraction) (I49.1) Active confirmed Problem 43217664 Oropharyngeal dysphagia (R13.12) Active confirmed Problem 62129684 Iron deficiency anemia, unspecified iron deficiency anemia type (D50.9) Active confirmed Problem 13784944669626 Pharyngeal dysph agia (R13.13) Active confirmed Problem 179198467 Vaginal bleeding (N93.9) Active confirmed Problem 12525016 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) Active confirmed Problem 644432471 Pure hypercholesterolemia (E78.00) Active confirmed Problem 773099010 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) Active confirmed Problem 93650412 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) Active confirme d Problem Plain X-ray of chest abnormal (finding) (0553163497) Abnormal chest xray (R93.89) Active confirmed Problem 41951776 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 confirmed Problem 255388219 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) Active confirmed Problem 13530002 Senile cataract, unspecified age-related cataract type, unspecified laterality (H25.9) Active confirmed Vital Signs Blood pressure diastolic 70 mm Hg 03/26/2025 Height 59.5 in 03/26/2025 Blood pressure systolic 142 mm Hg 03/26/2025 Weight 95 lbs 03/26/2025 BMI 18.86 kg/m2 03/26/2025 Encounters Encounter Location Date Provider Diagnosis Knedell Vaughn MD [address] [place] [id number] 02/23/2025 Kendell Vaughn UTI (urinary tract infection) N39.0 Kendell Vaughn MD [address] [place] [id number] 03/26/2025 Kendell Vaughn Lumbar disc disease M51.9 and After-treatment Z51.89 Kendell Vaughn MD [address] [place] [id number] 04/21/2024 Kendell Vaughn Pre-op evaluation Z0 1.818 and Senile cataract, unspecified age-related cataract type, unspecified laterality H25.9 Kendell Vaughn MD [address] [place] [address] Drive [address] [place], [place] [address] [id number] 07/04/2024 Kendell Vaughn Palpitations R00.2 a nd Pulmonary fibrosis J84.10 Kendell Vaughn MD [address] [place] [address] [address] [place] [address] [id number] 07/31/2024 Kendell Vaughn Palpitations R00.2 ; 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 and Encounter for immunization Z23 Kendell Vaughn MD [address] [place] [address] [id number] 08/26/2024 Kendell Vaughn Vitamin D deficiency E55.9 ; Pure hypercholesterolemia E78.00 and Iron deficiency anemia, unspecified iron deficiency anemia type D50.9 Kendell Vaughn MD [address] [place] [address] [id number] 09/05/2024 Kendell Vaughn Osteoporosis M81.0 ; Pure hypercholesterolemia E78.00 ; Vitamin D deficiency E55.9 ; Reflux esophagitis K21.00 and Depression screening Z13.31 Kendell Vaughn MD [address] [place] [address] [id number] 02/09/2025 Kendell Vaughn UTI (urinary tract infection) N39.0 Kendell Vaughn MD [address] [place] [address] [id number] 03/05/2025 Kendell Vaughn UTI (urinary tract infection) N39.0 Kendell Vaughn MD [address] [place] [address] [id number] 03/09/2025 Kendell Vaughn Compression fracture of fifth lumbar vertebra S32.050A Kendell Vaughn MD [address] [place] [address] [id number] 03/19/2025 Kendell Vaughn Compression fracture of first lumbar vertebra, with routine healing, subsequent encounter S32.010D and UTI symptoms R39.9 Kendell Vaughn MD [address] [place] [address] [id number] 04/21/2024 Kendell Vaughn MD [address] [place] [address] [id number] 09/01/2024 Kendell Vaughn Osteoporosis M81.0 Kendell Vaughn MD [address] [place] [address] [id number] 03/06/2025 Kendell Vaughn MD [address] [place] [address] [id number] 03/09/2025 Kendell Vaughn MD [address] [place] [address] [id number] 03/10/2025 Kendell Vaughn Lumbar back pain M54 .50 Assessments Encounter Date Diagnosis (ICD Code) Assessment Notes Treatment Notes Treatment Clinical Notes Section Notes 02/23/2025 UTI (urinary tract infection) (ICD-10 - N39.0) 03/26/2025 Lumbar disc disease (ICD-10 - M51.9) referral to dr thompson/ MRI orders faxed to [facility] CS dept 04/21/2024 Pre-op evaluation (ICD-10 - Z01.818) patient [...] any disorders. no uti/ order faxed to [facility] dept , pending diagnostic testing 03/19/2025 Compression fracture of first lumbar vertebra, with routine healing, subsequent encounter (ICD-10 - S32.010D) the pain is not in the area of the compression fractuie, pending diagnostic testing 03/19/2025 UTI symptoms (ICD-10 - R39.9) patient verbalized understanding of medication and directions for use 09/01/2024 Osteoporosis (ICD-10 - M81.0) 03/10/2025 Lumbar back pain (ICD-10 - M54.50) 03/26/2025 After-treatment (ICD -10 - Z51.89) pending labs 07/31/2024 Encounter for immunization (ICD-10 - Z23) [...] CONTRAST MRI LUMBAR SPINE NO CONTRAST 11/30/2023 MRI LUMBAR SPINE NO CONTRAST 03/26/2025 NUC WHOLE BODY SCAN BONE 10/19/2023 NUC WHOLE BODY SCAN BONE 11/09/2020 XR CERVICAL SPINE 2-3 VIEWS 06/20/2011 XR CERVICAL SPINE 4+ VIEWS 11/02/2020 XR CHEST 2 VIEW PA & LAT 02/01/2012 XR CHEST 2 VIEW PA & LAT 10/10/2022 XR CHEST 2 VIEW PA & LAT 08/14/2022 BONE DENSITY DEXA 08/09/2021 CA stress test 01/16/2023 ECG holter monitor 48 hour 07/04/2024 FL barium swallow 02/16/2022 FL barium swallow modified 01/12/2023 FL barium swallow modified 08/14/2022 MM tomosynthesis diagnostic BI XR DEXA axial skeleton 10/30/2023 NM bone scan whole body 03/09/2025 XR hip LT min 2V 11/29/2023 XR lumbar spine 2-3V 11/29/2023 XR cervical spine 3V 11/29/2023 UA ClnCatch+Micro w/rflx Cult 03/26/2025 Future Test Test Name Order Date Urinalysis and Microscopic 03/26/2025 Urine Culture 03/26/2025 Next Appt Details Provider Name:Kendell Cadena ier, 09/03/2025 07:15:00 AM, [address] [facility], [address], [place], [place], [phone], Provider Name:Kendell Cadena ier, 09/10/2025 08:30:00 AM, [address] [facility], [address], [place], [place], [phone], Insurance Providers Payer Name Payer Address Payer Phone Subscriber Number Group Number Insured Name Patient Relationship to Insured Coverage Start Date Coverage End Date MED[employer]ARE [employer] [address] [place] [address] [id number] Tiffanie Catalan Self - patient is the insured [employer]UE [facility] [address] [place], [place] [id number] Tiffanie Catalan Self - patient is the insured Medical (General) History Medical History History ICD Code colonoscopy 10/03/2013 and 2 005 negative - no further colonoscopies indicated per Dr. Rojo:12/04/23 colonoscopy pending path pap smear - negative (10/20/2013) blood on underwear. had cysto tizanidine is zanaflex Surgical History Surgery Date(Month/Year) Marcio right fifth toe (Dr. Mcfarlane)
--- OUTSIDE RECORDS SUMMARY | 2025-03-26 14:19 | XMS_ITS ---
Author Organization [facility] Address [address] [place] [address] Care Team Providers Care Sample Checker Name Role Phone Kendell Vaughn MD Primary Care Provider Jono Gamboa [phone] REASON FOR VISIT colon screening Encounters Encounter Location Date Provider Diagnosis [facility] [address] [place] [phone] 01/07/2025 Jono Rojo Plan Of Treatment Next Appt Details Provider Name:Jono Rojo , 05/13/2025 09:30:00 AM, [address] [place] [address] , [place], [place], [phone], Progress Notes * EMIR MCNAMARAEDOB:[birth year] (79 yo F)Acc No.[id number]:01/07/2025 Progress Notes Patient:?KRIS MCNAMARA Provider:?Jono Rojo MD :1945???Age:79 Y???Sex:Female D ate:01/07/2025 Address:[address] [place] [address], [facility] Pcp:Kendell Vaughn MD Subjective: * Chief Complaints: [...] Date:? 025 Generated for Devorah da silva/Chapito/Erick on:?03/26/2025 02:19 PM EDT
--- OUTSIDE RECORDS SUMMARY | 2025-03-26 14:19 | XMS_ITS ---
Author Organization Kendell Vaughn MD Address [address] [place], [place] [phone] Care Team Providers Care Organizational Consultant Name Role Phone Kendell Vaughn Primary Care Provider [phone] Results Component Value Reference Range Notes UA ClnCatch+Micro w/rflx Cul t Reviewed date:03/19/2025 12:29:25 PM Interpretation: Performing Lab:[facility], [address] [place] [phone] Notes/Report: Urine, Clean Catch Color Urine Yellow Appearance Urine Turbid PH 6.0 5.0-9.0 Glucose Urine UA Negative Negative mg/dL Urine Blood Small (1+) Negative Specific [place] - Urine 1.015 1.005-1.025 Urine Protein Trace [...] Location Date Provider Diagnosis Kendell Vaughn MD [address] [place] [address] [place] [id number] 03/17/2025 Kendell Vaughn UTI (urinary tract infection) N39.0 Assessments Encounter Date Diagnosis (ICD Code) Assessment Notes Treatment Notes Treatment Clinical Notes Section Notes 03/17/2025 UTI (urinary tract infection) (ICD-10 - N39.0) Plan Of Treatment Next Appt Details Provider Name:Kendell rodriguez, 09/03/2025 07:15:00 AM, [address] [place] [address], [place] [address], [place], [place], [phone], Provider Name:Kendell rodriguez, 09/10/2025 08:30:00 AM, [address] [place] [address], [place] [address], [place], [place], [phone], Progress Notes * Tiffanie MCNAMARA MDOB:12/1944 (79 yo F)Acc No.[id number]:03/17/2025 Progress Note Patient:?Tiffanie MCNAMARA Provider:?Kendell Vaughn MD :1945???Age:79 Y???Sex:Female D ate:03/17/2025 Address:[address] [place] [phone] Subjective: * Chief Complaints: * ???1. U/a. [...] Provider:?Kendell Vaughn MD Date:?0 03/17/2025 Generated for Devorha da silva/Chapito/Erick on:?03/26/2025 02:18 PM EDT
--- OUTSIDE RECORDS SUMMARY | 2025-03-26 14:19 | XMS_ITS | Patient Health Record ---
Author Organization [facility] Address [address] [place] [address] Care Team Providers Care Pilot Plant Technician Name Role Phone Roderick GARCIA, Kendell Primary Care Provider Jono Gamboa Unavailable [phone] Allergies Allergen (clinical drug ingredient) Drug/Non Drug [...] Status Risk Notes Problem Iron deficiency anemia (28694294) Iron deficiency anemia (D50.9) Active confirmed Problem 786293691 Gastroesophageal reflux disease, esophagitis presence not specified (K21.9) Active confirmed Problem 75848510 Constipation, unspecified constipation type (K59.00) Active confirmed Problem History of malignant neoplasm of colon (445429901) Personal history of colon cancer (Z85.038) Active confirmed Problem Chronic constipation (298447235) Chronic constipation (K59.09) Active confirmed Problem 27429573 Esophageal dysphagia (R13.19) Active confirmed Problem Primary adenocarcinoma of ascending colon (119315055131200) Primary adenocarcinoma of ascending colon (C18.2) Active confirmed Vital Signs Blood pressure diastolic 00 mm Hg 11/25/2024 Height 58.25 in 11/25/2024 Blood pressure systolic 00 mm Hg 11/25/2024 Weight 91 lbs 11/25/2024 BMI 18.85 kg/m2 11/25/2024 Encounters Encounter Location Date Provider Diagnosis [facility] [address] [place] [phone] 11/25/2024 Jono Rojo Personal history of colon cancer Z85.038 ; Chronic constipation K59.09 and Gastroesophageal reflux disease, esophagitis presence not specified K21.9 [facility] [address] [place] [address] 01/08/2025 Jono Rojo [facility] [address] [place] [phone] 03/20/2025 Jono Rojo Assessments Encounter Date Diagnosis (ICD [...] Provider Name:Jono Rojo , 05/13/2025 09:30:00 AM, [address] [place] [address] , [place], [place], [phone], Insurance Providers Payer Name Payer Address Payer Phone Subscriber Number Group Number Insured Name Patient Relationship to Insured Coverage Start Date Coverage End Date MEDICARE [place] [address] [place] [address] [id number] BRENDA LING TIFFANIE Self - patient is the insured [employer] CLAIMS [address] [place] [address] [id number] BRENDA LING TIFFANIE Self - patient is the insured Medical (General) History Medical History History ICD Code Denies HI,DM,CVA,renal disease Colonoscopy [id number]--internal hemorrhoi ds; neg. flex sigs in the [...]
--- OUTSIDE RECORDS SUMMARY | 2025-03-26 14:20 | XMS_ITS ---
Author Organization Kendell Vaughn MD Address [address] [place], [place] [phone] Care Team Providers Care Tire Repair Mechanic Name Role Phone Kendell Vaughn Primary Care Provider [phone] Allergies Allergen (clinical drug ingredient) Drug/Non Drug Allergy documented on EMR Reaction Allergy Type Onset Date Status codeine Codeine Sulfate gi upset Drug Allergy A ctive sulfamethoxazole / trimethoprim Bactrim DS heart palpitations Drug Allergy Active erythromycin erythromycin (uncoded) gi upset Allergy Active Results Component Value Reference Range Notes XR sacroiliac joint min 3V Reviewed date:03/19/2025 12:25:53 PM Interpretation: Performing Lab: Notes/Report: [place] [address] [place] [address] XRay Report Signed Patient: Tiffanie Mcnamara MR#: [id number] : 1945 Acct:[id number] Age/Sex: 79 / F ADM Date: 03/19/25 Loc: HO.XRAY Attending Dr: Kendell Vaughn MD Ordering Physician: Kendell Vaughn MD Date of Service: 03/19/25 Procedure(s): XR sacroiliac joint min 3V Accession Number(s): [id number] cc: Kendell Vaughn MD EXAMINATION: XR SACROILIAC [...] 03/19/25 1052 DD/ 1025 TD/TT: 03/19/25 1040 Car Repairer Helper: [address] [address] XRay Report Signed Patient: Tiffanie Welch i MR#: [id number] : 1945 Acct:[id number] Age/Sex: 79 / F ADM Date: 03/19/25 Loc: HO.XRAY Attending Dr: Kendell Vaughn MD Ordering Physician: Kendell Vaughn MD Date of Service: 03/19/25 Procedure(s): XR sac roiliac joint min 3V Accession Number(s): [id number] cc: Kendell Vaughn MD EXAMINATION: XR SACROILIAC [...] lower lumbar spine. There is a pessary d evice in the inferior pelvis. X R/XR sacroiliac joint min 3V IMPRESSION: 1. Mild degenerative changes in the sacroiliac joints without evidence of inflammatory arthropathy. 2. No acute bony abnormalities. 3. 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 Electronically josh d by: Brennan Garcia MD 03/19/2025 10:52 AM EDT Dictated By: Brennan Garcia MD Signed By: <Electron ically signed by Brennan Garcia MD in OV> 03/19/25 1052 DD/ 1025 TD/TT: 03/19/25 1040 Car Repairer Helper: XR hip LT min 2V Reviewed date:03/19/2025 12:26:24 PM Interpretation: Performing Lab: Notes/Report: [address] [address] XRay Report Signed Patient: Tiffanie Mcnamara MR#: [id number] : 1945 Acct:[id number] Age/Sex: 79 / F ADM Date: 03/19/25 Loc: HO.XRAY Attending Dr: Kendell Vaughn MD Ordering Physician: Kendell Vaughn MD Date of Service: 03/19/25 Procedure(s): XR hip LT min 2V Accession Number(s): [id number] cc: Kendell Vaughn MD EXAMINATION: XR HIP, [...] 03/19/25 1050 DD/ 1004 TD/TT: 03/19/25 1040 Car Repairer Helper: [place] [address] XRay Report Signed Patient: Tiffanie Welch i MR#: [id number] : 1945 Acct:[id number] Age/Sex: 79 / F ADM Date: 03/19/25 Loc: HO.XRAY Attending Dr: Kendell Vaughn MD Ordering Physician: Kendell Vaughn MD Date of Service: 03/19/25 Procedure(s): XR hip LT min 2V Accession Number(s): [id number] cc: Kendell Vaughn MD EXAMINATION: XR HIP, [...] 03/19/25 1050 DD/ 1004 TD/TT: 03/19/25 1040 Car Repairer Helper: REASON FOR VISIT 10 day /urine culture Medications Medication SIG (Take, Route, Frequency, Duration) Notes Start Date End Date Status Cranberry 405 MG 1 capsule with meals Orally Twice a day Active Stool Softener 100 MG 1 tablet as needed Orally three times a day Active PARoxetine HCl 10 MG TAKE 1 TABLET BY [facility] EVERY DAY IN THE MORNING [...] Location Date Provider Diagnosis Kendell Vaughn MD [address] [place] [address] [place] [phone] 03/19/2025 Kendell Bombardier Compression fracture of first lumbar vertebra, with [...] nderstanding of medication and directions for use Future Test Test Name Order Date Urinalysis and Microscopic 03/26/2025 Urine Culture 03/26/2025 Next Appt Details Follow Up: 1 Week, Reason: Provider Name:Kendell rodriguez, 09/03/2025 07:15:00 AM, [address] [place] [address], [address], [phone], Provider Name:Kendell rodriguez, 09/10/2025 08:30:00 AM, [address] [place] [address], [place] [address], [place], [place], [phone], Progress Notes * Tiffanie MCNAMARA MDOB:12/1944 (79 yo F)Acc No.[id number]:03/19/2025 Patient:?Tiffanie MCNAMARA Provider:?Kendell Vaughn MD :1945???Age:79 Y???Sex:Female D ate:03/19/2025 Address:[address] [place] [phone] Subjective: * Chief Complaints: * ???10 day /urine culture * HPI: ???Symptom(s):? patient is a 79 [...] tablet as needed Orally Twice a day DiscontinuedCephalexin 500 MG Capsule 1 capsule Orally twice a dayt Cephalexin 500 MG Capsule 1 capsule Orally twice a day Medication List reviewed and reconciled with the patientDiscontinued Cephalexin 500 MG Capsule 1 capsule Orally twice a dayt Discontinued Cephalexin 500 MG Capsule 1 capsule Orally twice a day Medication List reviewed and reconciled [...] of medication and directions for use?? * Procedure Codes:? * Follow Up:?1 Week * * Sign off status: Completed true * Provider:?Kendell Vaughn MD Date:?0 03/19/2025 Generated for Devorah da silva/Chapito/eTransmitting on:?03/26/2025 02:19 PM EDT History and Physical Notes * [...]
--- OUTSIDE RECORDS SUMMARY | 2025-03-26 14:20 | XMS_ITS ---
Author Organization Kendell Vaughn MD Address [address] [place], [place] [phone] Care Team Providers Care Supervisor Gelatin Plant Name Role Phone Kendell Vaughn Primary Care [...] (Not yet reviewed by provider) Interpretation: Performing Lab:[facility], [address] [place] [phone] Notes/Report: Urine, Clean Catch Color Urine Yellow Appearance Urine Clear PH 6.0 5.0-9.0 Glucose Urine UA Negative Negative mg/dL Urine Blood Trace Negative Specific [place] - Urine 1.015 1.005-1.025 Urine Protein Negative Neg-Trace mg/dL Urine Ketones Negative Negative mg/dL Nitrite Urine Negative Negative Leukocyte Esterase Urine Small (1+) Negative RBC Urine 0-2 0-2 /HPF WBC Urine 0-5 0-5 /HPF Squamous Epithelial Cell Urine 0-2 0-2 /HPF Bacteria Urine None Seen None Seen Hyaline Casts Urine 0-2 0-2 /LPF Reason For Referral Reason Lumbar disc disease Diagnosis 1 Lumbar disc disease (M51.9) Referral Organization Kendell Vaughn MD Referring Provider First Name Kendell Referring Provider Last Name Roderick Referring Provider Speciality Internal M edicine Referred Provider Felix Thompson Referred Provider Specialty Neurosurgery General Notes Yamile Bennett 0 03/26/2025 10:52:09 AM > MRI pending Referral Priority Routine REASON FOR VISIT 1 week/ urine Medications Medication SIG (Take, Route, Frequency, Duration) Notes Start Date End Date Status Ativan 0.5 MG 1 tablet as needed Orally Twice a day 06/15/2015 Not-Taking PriLOSEC OTC 20 MG 2 tablet 30 minutes before morning meal Orally Once a day Not-Taking Methenamine Hippurate 1 GM 1 tablet Orally Twice a day for 10 day(s) Not-Taking Ibuprofen 800 MG 1 TABLET ORALLY [...] DAY IN THE MORNING for 90 Active Stool Softener 100 MG 1 tablet as needed Orally three times a day Active Cranberry 405 MG 1 capsule with meals Orally Twice a day Active Vitamin C 500 MG as directed Orally Active Albuterol Sulfate HFA 108 (90 Base) MCG/ACT 2 puff as needed Inhalation every 4 hrs 02/16/2023 Active Problems Problem Type SNOMED Code ICD Code Onset Dates Problem Status W/U Status Risk Notes Problem Disorder of lumbar disc (875287502) Lumbar disc disease (M51.9) Active confirmed Vital Signs Blood pressure systolic 142 mm Hg 03/26/20 25 Blood pressure diastolic 70 mm Hg 025 Height 59.5 in 03/26/2025 Weight 95 lbs 03/26/2025 BMI 18.86 kg/m2 03/26/2025 Encounters Encounter Location Date Provider Diagnosis Kendell Vaughn MD [address] [place] [address] [place] [phone] 03/26/2025 Kendell Vaughn Lumbar disc disease M51.9 and After-treatment Z51.89 Assessments Encounter Date Diagnosis (ICD Code) Assessment Notes Treatment Notes Treatment Clinical Notes Section Notes 03/26/2025 Lumbar disc disease (ICD-10 - M51.9) referral to dr thompson/ MRI orders faxed to [facility] CS dept 03/26/2025 After-treatment (ICD-10 - Z51.89) pending labs Plan Of Treatment Treatment Notes Assessment Notes Lumbar disc disease referral to dr vaishali tomlinson/ MRI orders faxed to [facility] CS dept After-treatment pending labs Pending Test Test Name Order Date MRI LUMBAR SPINE NO CONTRAST 03/26/2025 UA ClnCatch+Micro w/rflx Cult 03/26/2025 Referrals Referral Date Details 03/26/2025 03/26/2025, Lumbar d isc disease, Felix Thompson Next Appt Details Follow Up: 4 Weeks, Reason: Provider Name:Kendell rodriguez, 09/03/2025 07:15:00 AM, [address] [place] [address], [address] [place] [address], [phone], Provider Name:Kendell rodriguez, 09/10/2025 08:30:00 AM, [address] [place] [address], [place] [address], [place], [place], [phone], Progress Notes * Tiffanie MCNAMARA MDOB:12/1944 (79 yo F)Acc No.[id number]:03/26/2025 Progress Notes Patient:?Tiffanie MCNAMARA Provider:?Kendell Vaughn MD :1945???Age:79 Y???Sex:Female D ate:03/26/2025 Address:[address], [place], [phone] Subjective: * Chief Complaints: * ???1. 1 week/ urine. * HPI: ???Symptom(s):?patient is? a 79 yo female here for one week follow up/ pain in back into groin. * ROS:?General/Constitutional:?Denies?Chills.?Denies?Fatigue.?Denies?Fever.?Denies?Headache.?ENT:?Denies?Sore throat.?Respiratory:?Denies?Cough.?Denies?Shortness of breath at rest.?Denies?Shortness of breath with exertion.?Gastrointestinal:?Denies?Diarrhea.?Denies?Nausea.?Genitourinary:?Admits?Abdominal pain/swelling.?Denies?Blood in urine.?Denies?Difficulty urinating.?Admits?Frequent urination.?Admits?Pain in lower back.?Denies?Painful urination.? * Medical History:?colonoscopy 10/03/2013 and 2004 [...] needed Orally Twice a day , Discontinued Ciprofloxacin HCl 250 MG Tablet 1 tablet Orally every 12 hrs , Medication List reviewed and reconciled with the patient * Allergies:?erythromycin: gi upset, Codeine Sulfate: gi upset, Bactrim DS: heart palpitations. Objective: * Vitals:?Ht: 59.5, Wt: 95, BM I:18.86, BP:142/70, Repeat BP:118/75, Wt-k.09. * Examination: ???General Examination: ?GENERAL APPEARANCE:?alert, well hydrated, in no distress.?HEAD:?normocephalic.?SKIN:?good turgor.?HEART:?regular rate and rhythm, no murmurs, rubs, gallops.?LUNGS:?no wheezes, rales, rhonchi, good air movement, clear to auscultation bilaterally.?MUSCULOSKELETAL:?dtr's on rt leg hyper reflex and positve str leg raising.? Assessment: * Assessment: 1.?Lumbar disc disease - M51 .9 (Primary)???2.?After-treatment - Z51.89??? Plan: * Treatment: 2.?After-treatment?LAB: [facility] ClVikram+Micro w/rflx Cult (Collection Date & Time - 03/26/2025 10:30 AM) Notes: pending labs?? * Follow Up:?4 Weeks * * The named appointment provid er may or may not be the originator of this progress note, and it is not deemed complete until electronically signed by the appointment provider. Sign off status: Pending * Provider:?Kendell Vaughn MD Date:?0 03/26/2025 Generated for Donavani rekha/Chapito/eTransmitting on:?03/26/2025 02:19 PM EDT History and Physical Notes * HPI (History of Present Illness) Category Sub-Category Detail Notes Category Not es Symptom(s) patient is a 79 yo female here for one week follow up/ pain in back into groin Examination Category Sub-Category Detail Notes Category Not es General Examination GENERAL APPEARANCE: alert, w ell hydrated, in no distress HEAD: normocephalic HEART: regular rate and rhy thm, no murmurs, rubs, gallops LUNGS: no wheezes, rales, r honchi, good air movement, clear to auscultation bilaterally SKIN: good turgor MUSCULOSKELETAL: dtr's on rt leg hype r reflex and positve str leg raising Consultation Request Notes Referral Date Referring Provider Referred Provider Not es 03/26/2025 Kendell Vaughn, Felix Davis r disc disease
--- OUTSIDE RECORDS SUMMARY | 2025-03-26 14:20 | XMS_ITS ---
Author Organization [facility] Address [address] [place] [address] Care Team Providers Care Order Schedule Clerk Name Role Phone Kendell Vaughn MD Primary Care Provider Jono Gamboa [phone] REASON FOR VISIT Sooner procedure date Encounters Encounter Location Date Provider Diagnosis [facility] [address] [place] [phone] 03/20/2025 Jono Rojo Plan Of Treatment Next Appt Details Provider Name:Jono Rojo , 05/13/2025 09:30:00 AM, [address] [place] [address] , [place], [place], [phone], Progress Notes * EMIR MCNAMARAEDOB:[birth year] (79 yo F)Acc No.[id number]:03/20/2025 Patient:?KRIS MCNAMARA :1945???Age:79 Y???Sex:Female Address:[address] [place] [address], [place] [address] * true * Date:? Generated for Donavani rekha/Chapito/eTransmitting on:?03/26/2025 02:19 PM EDT
--- OUTSIDE RECORDS SUMMARY | 2025-03-26 14:20 | XMS_ITS ---
Author Organization [facility] Address [address] [place] [address] Care Team Providers Care District Traffic Chief Name Role Phone Kendell Vaughn MD Primary Care Provider Jono Gamboa [phone] REASON FOR VISIT constipation Encounters Encounter Location Date Provider Diagnosis [facility] [address] [place] [phone] 01/08/2025 Jono Rojo Plan Of Treatment Next Appt Details Provider Name:Jono Rojo , 05/13/2025 09:30:00 AM, [address] [place] [address] , [place], [place], [phone], Progress Notes * EMIR MCNAMARAEDOB:[birth year] (79 yo F)Acc No.[id number]:01/08/2025 Patient:?KRIS MCNAMARA :1945???Age:79 Y???Sex:Female Address:[address] [place] [address], [place] [address] * true * Date:? Generated for Printi rekha/Chapito/eTransmitting on:?03/26/2025 02:19 PM EDT
--- OUTSIDE RECORDS SUMMARY | 2025-03-26 14:20 | XMS_ITS | Clinical Summary ---
Author Organization [facility] Address [address] [place] [address] Care Team Providers Care Pharmacist'S Aide Name Role Phone Kendell Vaughn MD Primary Care Provider [phone]- [phone] Social History Tobacco Use Types Packs/Day Years [...] age to complete this topic Care Teams Pharmacist'S Aide Relationship Specialty Start Date End Date Kendell Vaughn MD [address] [place] [address] PCP - General Internal Medicine 04/26/21
== END 2025-03-26 13:43 | disposition home or self-care (01) ==
LOC: HO.LNP 13:42
PROVIDERS: Visit Provider Internal Medicine
DX: Z51.89 Encounter for other specified aftercare (principal); R39.9 Unspecified symptoms and signs involving the genitourinary system
CPT/HCPCS: 81001; 87086

== ENCOUNTER 2025-04-01 18:11 | Outpatient (REF) | payer MEDICARE, SELFPAY ==
--- NOTE | ~2025-04-01 | MR_ITS ---
EXAMINATION: MR LUMBAR SPINE WITHOUT CONTRAST CLINICAL INFORMATION: Disc disease. COMPARISON: January 16, 2024 reported scoliosis and grade 1 anterolisthesis L3-4 and L4-5 and likely L1-2. TECHNIQUE: MRI of the lumbar spine was obtained using routine sequences without contrast. FINDINGS: Last rib-bearing vertebra labeled T12. There is bone marrow STIR signal abnormality throughout the vertebral body of L1 and extending into the left pedicle. There is 30% volume loss of the vertebral body. There is a 3 mm retrocrural portion of the posterior superior endplate. There is a levoconvex rotoscoliosis apex at L3-4. There is multilevel marginal osteophyte formation and disc desiccation throughout the axial skeleton. There is bone marrow inhomogeneity. There is grade 1 anterolisthesis L3-4 and L4-5. There is grade 1 retrolisthesis at L1-2. Conus medullaris ends at pedicle of L1 with normal signal. T12-L1: Broad-based disc bulging. Facet joint and ligamentum flavum hypertrophy. Reduced AP diameter of the thecal sac and the neural foramina. L1-2: Broad-based disc bulging. Facet joint and ligamentum flavum hypertrophy resulting in deformity of the thecal sac and reduced AP diameter. Bilateral neuroforamina narrowing. L2-3: Broad-based disc bulging. Facet joint and ligamentum flavum hypertrophy. Reduced AP diameter of the thecal sac and the neuroforamina. L3-4: Broad-based disc bulging. Grade 1 anterolisthesis. Facet joint and ligamentum flavum hypertrophy. CSF effacement of the thecal sac and central spinal canal stenosis. Bilateral neuroforamina narrowing, right greater than left likely encroaching the neural elements. L4-5: Grade 1 anterolisthesis. Facet joint and ligamentum flavum hypertrophy. Reduced AP diameter of the thecal sac and the neural foramina abutting the neural elements. L5-S1: No disc herniation. No central spinal canal stenosis. Bilateral neuroforamina narrowing, left greater than right likely encroaching the exiting nerve roots. Fatty atrophy of the lower lumbar muscles from L3-4 to sacrum. Asymmetric volume loss of the right psoas muscle. No prevertebral compartment hematoma, mass or fluid collection. 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 Multilevel spondylosis and levoconvex rotoscoliosis with a grade 1 anterolisthesis L3-4 and L4-5 and grade 1 retrolisthesis L1 to close in central spinal canal and bilateral neuroforamina stenosis more pronounced at L3-4 encroaching the neural elements. Electronically signed by: Seng Kang MD 04/02/2025 07:18 AM EDT
--- OUTSIDE RECORDS SUMMARY | 2025-04-01 18:14 | XMS_ITS | Patient Health Record ---
Author Organization [facility] Address [address] [place] [address] Care Team Providers Care Automotive Technician Name Role Phone Roderick GARCIA, Kendell Primary Care Provider Jono Gamboa Unavailable [phone] Allergies Allergen (clinical drug ingredient) Drug/Non Drug [...] Status Risk Notes Problem Iron deficiency anemia (86226519) Iron deficiency anemia (D50.9) Active confirmed Problem 938430895 Gastroesophageal reflux disease, esophagitis presence not specified (K21.9) Active confirmed Problem 31991874 Constipation, unspecified constipation type (K59.00) Active confirmed Problem History of malignant neoplasm of colon (312488796) Personal history of colon cancer (Z85.038) Active confirmed Problem Chronic constipation (870288307) Chronic constipation (K59.09) Active confirmed Problem 36564329 Esophageal dysphagia (R13.19) Active confirmed Problem Primary adenocarcinoma of ascending colon (006505299343440) Primary adenocarcinoma of ascending colon (C18.2) Active confirmed Vital Signs Blood pressure diastolic 00 mm Hg 11/25/2024 Height 58.25 in 11/25/2024 Blood pressure systolic 00 mm Hg 11/25/2024 Weight 91 lbs 11/25/2024 BMI 18.85 kg/m2 11/25/2024 Encounters Encounter Location Date Provider Diagnosis [facility] [address] [place] [phone] 11/25/2024 Jono Rojo Personal history of colon cancer Z85.038 ; Chronic constipation K59.09 and Gastroesophageal reflux disease, esophagitis presence not specified K21.9 [facility] [address] [place] [address] 01/08/2025 Jono Rojo [facility] [address] [place] [address] 03/20/2025 Jono Rojo Assessments Encounter Date Diagnosis [...] Provider Name:Jono Rojo , 05/13/2025 09:30:00 AM, [address] [place] [address] , [place], [place], [phone], Insurance Providers Payer Name Payer Address Payer Phone Subscriber Number Group Number Insured Name Patient Relationship to Insured Coverage Start Date Coverage End Date MEDICARE OF [place] [address] [place] [address] [id number] BRENDA LING TIFFANIE Self - patient is the insured MEDEX ATTN CLAIMS [address] [place] [phone] [id number] BRENDA LING TIFFANIE Self - patient is the insured Medical (General) History Medical History History ICD Code Denies [place],DM,CVA,renal disease Colonoscopy [id number]--internal hemorrhoi ds; neg. flex sigs in the [...]
--- OUTSIDE RECORDS SUMMARY | 2025-04-01 18:14 | XMS_ITS ---
Author Organization [facility] Address [address] [place] [address] Care Team Providers Care Network Operations Project Manager Name Role Phone Kendell Vaughn MD Primary Care Provider Jono Gamboa [phone] REASON FOR VISIT colon screening Encounters Encounter Location Date Provider Diagnosis [facility] [address] [place] [phone] 01/07/2025 Jono Rojo Plan Of Treatment Next Appt Details Provider Name:Jono Rojo , 05/13/2025 09:30:00 AM, [address] [place] [address] , [place], [place], [phone], Progress Notes * EMIR MCNAMARAEDOB:[birth year] (79 yo F)Acc No.[id number]:01/07/2025 Progress Notes Patient:?KRIS MCNAMARA Provider:?Jono Rojo MD :1945???Age:79 Y???Sex:Female D ate:01/07/2025 Address:[address] [place] [address], [id number] Pcp:Kendell Vaughn MD Subjective: * Chief Complaints: [...] Date:? 025 Generated for Devorah da silva/Chapito/Erick on:?04/01/2025 06:14 PM EDT
--- OUTSIDE RECORDS SUMMARY | 2025-04-01 18:14 | XMS_ITS ---
Author Organization Kendell Vaughn MD Address [address] [place], [place] [phone] Care Team Providers Care Dual Rate Dealer Name Role Phone Kendell Vaughn Primary Care Provider Results Component Value Reference Range Notes UA ClnCatch+Micro w/rflx Cul t Reviewed date:03/19/2025 12:29:25 PM Interpretation: Performing Lab:[facility] [place], [address] [place] [phone] Notes/Report: Urine, Clean Catch Color Urine Yellow Appearance Urine Turbid PH 6.0 5.0-9.0 Glucose Urine UA Negative Negative mg/dL Urine Blood Small (1+) Negative Specific [place] - Urine 1.015 1.005-1.025 Urine Protein Trace [...] Location Date Provider Diagnosis Kendell Vaughn MD [address] [place] [address] [place] [phone] 03/17/2025 Kendell Vaughn UTI (urinary tract infection) N39.0 Assessments Encounter Date Diagnosis (ICD Code) Assessment Notes Treatment Notes Treatment Clinical Notes Section Notes 03/17/2025 UTI (urinary tract infection) (ICD-10 - N39.0) Plan Of Treatment Next Appt Details Provider Name:Kendell rodriguez, 09/03/2025 07:15:00 AM, [address] [place] [address], [place] [address], [place], [place], [phone], Provider Name:Kendell rodriguez, 09/10/2025 08:30:00 AM, [address] [place] [address], [place] [address], [place], [place], [phone], Progress Notes * Tiffanie MCNAMARA MDOB:12/1944 (79 yo F)Acc No.[id number]:03/17/2025 Progress Note Patient:?Tiffanie MCNAMARA Provider:?Kendell Vaughn MD :1945???Age:79 Y???Sex:Female D ate:03/17/2025 Address:[address] [place] [phone] Subjective: * Chief Complaints: * ???1. U/a. [...] MD Date:?0 03/17/2025 Generated for Devorah da silva/Chapito/Erick on:?04/01/2025 06:13 PM EDT
--- OUTSIDE RECORDS SUMMARY | 2025-04-01 18:15 | XMS_ITS ---
Author Organization [facility] Address [address] [place] [address] Care Team Providers Care Boiler House Inspector Name Role Phone Kendell Vaughn MD Primary Care Provider Jono Gamboa [phone] REASON FOR VISIT constipation Encounters Encounter Location Date Provider Diagnosis [facility] [address] [place] [phone] 01/08/2025 Jono Rojo Plan Of Treatment Next Appt Details Provider Name:Jono Rojo , 05/13/2025 09:30:00 AM, [address] [place] [address] , [place], [place], [phone], Progress Notes * EMIR MCNAMARAEDOB:[birth year] (79 yo F)Acc No.[id number]:01/08/2025 Patient:?KRIS MCNAMARA :1945???Age:79 Y???Sex:Female Address:[address] [place] [address], [place] [address] * true * Date:? Generated for Printi rekha/Chapito/eTransmitting on:?04/01/2025 06:14 PM EDT
--- OUTSIDE RECORDS SUMMARY | 2025-04-01 18:15 | XMS_ITS ---
Author Organization Kendell Vaughn MD Address [address] [place], [place] [phone] Care Team Providers Care Optics Manufacturing Technician Name Role Phone Kendell Vaughn Primary [...] Notes UA ClnCatch+Micro w/rflx Cul t Reviewed date:03/26/2025 02:28:32 PM Interpretation: Performing Lab:[facility], [address] [place] [phone] Notes/Report: Urine, Clean Catch Color Urine Yellow Appearance Urine Clear PH 6.0 5.0-9.0 Glucose Urine UA Negative Negative mg/dL Urine Blood Trace Negative Specific [place] - Urine 1.015 1.005-1.025 Urine Protein Negative [...] Thompson Referred Provider Specialty Neurosurgery General Notes Yaimle Bennett 0 03/26/2025 10:52:09 AM > MRI [...] Risk Notes Problem Disorder of lumbar disc (747777543) Lumbar disc disease (M51.9) Active confirmed Vital Signs Blood pressure systolic 142 mm Hg 03/26/20 25 Blood pressure diastolic 70 mm Hg 025 Height 59.5 in 03/26/2025 Weight 95 lbs 03/26/2025 BMI 18.86 kg/m2 03/26/2025 Encounters Encounter Location Date Provider Diagnosis Kendell Vaughn MD [address] [place] [address] [address] [place] [phone] 03/26/2025 Kendell Vaughn Lumbar disc disease M51.9 and After-treatment Z51.89 Assessments Encounter Date Diagnosis (ICD Code) Assessment Notes Treatment Notes Treatment Clinical Notes Section Notes 03/26/2025 Lumbar disc disease (ICD-10 - M51.9) referral to dr thompson/ MRI orders faxed to [facility] [place] [place] [facility] dept 03/26/2025 After-treatment (ICD-10 - Z51.89) pending labs Plan Of Treatment Treatment Notes Assessment Notes Lumbar disc disease referral to dr vaishali tomlinson/ MRI orders faxed to [facility] [place] [place] [facility] dept After-treatment pending labs Pending Test Test Name Order Date MRI LUMBAR SPINE NO CONTRAST 03/26/2025 Referrals Referral Date Details 03/26/2025 03/26/2025, Lumbar d isc disease, Felix Thompson Next Appt Details Follow Up: 4 Weeks, Reason: Provider Name:Kendell rodriguez, 09/03/2025 07:15:00 AM, [address] [place] [address], [address] [place] [address], [phone], Provider Name:Kendell rodriguez, 09/10/2025 08:30:00 AM, [address] [place] [address], [place] [address], [place], [place], [phone], Progress Notes * Tiffanie MCNAMARA MDOB:12/1944 (79 yo F)Acc No.[id number]:03/26/2025 Progress Notes Patient:?Tiffanie MCNAMARA Provider:?Kendell Vaughn MD :1945???Age:79 Y???Sex:Female D ate:03/26/2025 Address:[address], [place], [phone] Subjective: * Chief Complaints: * ???1 week/ urine * HPI: ???Symptom(s):?patient is? a 79 yo female here for one week follow up/ pain in back into groin. * ROS:?General/Constitutional:?Denies?Chills.?Denies?Fatigue.?Denies?Fever.?Denies?Headache.?ENT:?Denies?Sore throat.?Respiratory:?Denies?Cough.?Denies?Shortness of breath at rest.?Denies?Shortness of breath with exertion.?Gastrointestinal:?Denies?Diarrhea.?Denies?Nausea.?Genitourinary:?Admits?Abdominal pain/swelling.?Denies?Blood in urine.?Denies?Difficulty urinating.?Admits?Frequent urination.?Admits?Pain in lower back.?Denies?Painful urination.? * Medical History:? * Surgical History:? [...] tablet as needed Orally Twice a day DiscontinuedCiprofloxacin HCl 250 MG Tablet 1 tablet Orally every 12 hrs Medication List reviewed and reconciled with the patientDiscontinued Ciprofloxacin HCl 250 MG Tablet 1 tablet Orally every 12 hrs Medication List reviewed and reconciled with the [...] (Primary)???2.?After-treatment - Z51.89??? Plan: * Treatment: 2.?After-treatment?LAB: UA ClnCatch+Micro w/rflx Cult (Collection Date & Time - 03/26/2025 10:30 AM) Notes: pending labs?? * Procedure Codes:? * Follow Up:?4 Weeks * * Sign off status: Completed true * Provider:?Kendell Vaughn MD Date:?0 03/26/2025 Generated for Printi ng/Famoirag/eTransmitting on:?04/01/2025 06:14 PM EDT History and Physical Notes * [...] Provider Referred Provider Not es 03/26/2025 Kendell Vaughn Fredrick Lumba r disc disease
--- OUTSIDE RECORDS SUMMARY | 2025-04-01 18:15 | XMS_ITS | Clinical Summary ---
Author Organization [facility] Address [address] [place] [address] Care Team Providers Care Geological Drafter Name Role Phone Kendell Vaughn MD Primary Care Provider [phone] Social History Tobacco Use Types Packs/Day Years [...] age to complete this topic Care Teams Geological Drafter Relationship Specialty Start Date End Date Kendell Vaughn MD [address] [place] [address] PCP - General Internal Medicine 04/26/21
--- OUTSIDE RECORDS SUMMARY | 2025-04-01 18:15 | XMS_ITS ---
Author Organization [facility] Address [address] [place] [phone] Care Team Providers Care Post Adoption Coordinator Name Role Phone Kendell Vaughn MD Primary Care Provider Jono Gamboa [phone] REASON FOR VISIT Sooner procedure date Encounters Encounter Location Date Provider Diagnosis [facility] [address] [place] [phone] 03/20/2025 Jono Rojo Plan Of Treatment Next Appt Details Provider Name:Jono Rojo , 05/13/2025 09:30:00 AM, [address] [place] [address] , [place], [place], [phone], Progress Notes * EMIR MCNAMARAEDOB:[birth year] (79 yo F)Acc No.[id number]:03/20/2025 Patient:?KRIS MCNAMARA :1945???Age:79 Y???Sex:Female Address:[address] [place] [address], [place] [address] * true * Date:? Generated for Donavani rekha/Chapito/eTransmitting on:?04/01/2025 06:14 PM EDT
--- OUTSIDE RECORDS SUMMARY | 2025-04-01 18:15 | XMS_ITS ---
Author Organization Kendell Vaughn MD Address [address] [place], [place] [phone] Care Team Providers Care Spud Sorter Name Role Phone Kendell Vaughn Primary Care Provider [phone] Allergies Allergen (clinical drug ingredient) Drug/Non Drug Allergy documented on EMR Reaction Allergy Type Onset Date Status codeine Codeine Sulfate gi upset Drug Allergy A ctive sulfamethoxazole / trimethoprim Bactrim DS heart palpitations Drug Allergy Active erythromycin erythromycin (uncoded) gi upset Allergy Active Results Component Value Reference Range Notes XR sacroiliac joint min 3V Reviewed date:03/19/2025 12:25:53 PM Interpretation: Performing Lab: Notes/Report: [place] [address] [place] [address] XRay Report Signed Patient: Tiffanie Mcnamara MR#: [id number] : 1945 Acct:[id number] Age/Sex: 79 / F ADM Date: 03/19/25 Loc: HO.XRAY Attending Dr: Kendell Vaughn MD Ordering Physician: Kendell Vaughn MD Date of Service: 03/19/25 Procedure(s): XR sacroiliac joint min 3V Accession Number(s): [id number] cc: Kendell Vaughn MD EXAMINATION: XR SACROILIAC [...] 03/19/25 1052 DD/ 1025 TD/TT: 03/19/25 1040 Cooling Pipe Inspector: [address] [address] XRay Report Signed Patient: Tiffanie Welch i MR#: [id number] : 1945 Acct:[id number] Age/Sex: 79 / F ADM Date: 03/19/25 Loc: HO.XRAY Attending Dr: Kendell Vaughn MD Ordering Physician: Kendell Vaughn MD Date of Service: 03/19/25 Procedure(s): XR sac roiliac joint min 3V Accession Number(s): [id number] cc: Kendell Vaughn MD EXAMINATION: XR SACROILIAC [...] 03/19/25 1052 DD/ 1025 TD/TT: 03/19/25 1040 Cooling Pipe Inspector: XR hip LT min 2V Reviewed date:03/19/2025 12:26:24 PM Interpretation: Performing Lab: Notes/Report: [address] [address] XRay Report Signed Patient: Tiffanie Mcnamara MR#: [id number] : 1945 Acct:[id number] Age/Sex: 79 / F ADM Date: 03/19/25 Loc: HO.XRAY Attending Dr: Kendell Vaughn MD Ordering Physician: Kendell Vaughn MD Date of Service: 03/19/25 Procedure(s): XR hip LT min 2V Accession Number(s): [id number] cc: Kendell Vaughn MD EXAMINATION: XR HIP, [...] 03/19/25 1050 DD/ 1004 TD/TT: 03/19/25 1040 Cooling Pipe Inspector: [place] [address] XRay Report Signed Patient: Tiffanie [place] i MR#: [id number] : 1945 Acct:[id number] Age/Sex: 79 / F ADM Date: 03/19/25 Loc: HO.XRAY Attending Dr: Kendell Vaughn MD Ordering Physician: Kendell Vaughn MD Date of Service: 03/19/25 Procedure(s): XR hip LT min 2V Accession Number(s): [id number] cc: Kenedll Vaughn MD EXAMINATION: XR HIP, LEFT CLINICAL [...] 03/19/25 1050 DD/ 1004 TD/TT: 03/19/25 1040 Cooling Pipe Inspector: REASON FOR VISIT 10 day /urine culture [...] Location Date Provider Diagnosis Kendell Vaughn MD [address] [place] [address] [place] [phone] 03/19/2025 Kendell Bombardier Compression fracture of first [...] Name Order Date Urinalysis and Microscopic 03/26/2025 Next Appt Details Follow Up: 1 Week, Reason: Provider Name:Kendell rodriguez, 09/03/2025 07:15:00 AM, [address] [place] [address], [address], [phone], Provider Name:Kendell rodriguez, 09/10/2025 08:30:00 AM, [address] [place] [address], [place] [address], [place], [place], [phone], Progress Notes * Tiffanie MCNAMARA MDOB:12/1944 (79 yo F)Acc No.[id number]:03/19/2025 Patient:?Tiffanie MCNAMARA Provider:?Kendell Vaughn MD :1945???Age:79 Y???Sex:Female D ate:03/19/2025 Address:[address] [place] [phone] Subjective: * Chief Complaints: * ???10 day [...] Date:?0 03/19/2025 Generated for Devorah da silva/Chapito/eTransmitting on:?04/01/2025 06:14 PM EDT History and Physical [...]
== END 2025-04-01 18:12 | disposition home or self-care (01) ==
LOC: HO.MRI 18:11
PROVIDERS: PCP Internal Medicine; Visit Provider Internal Medicine
DX: M51.9 Unspecified thoracic, thoracolumbar and lumbosacral intervertebral disc disorder (principal)
CPT/HCPCS: 72148

== ENCOUNTER → 2025-04-01 18:26 | Outpatient (BNV) | payer MEDICARE, SELFPAY | PROVIDERS: PCP Internal Medicine; Visit Provider Radiology Diagnostic Radiology | DX: M47.816 Spondylosis without myelopathy or radiculopathy, lumbar region (principal); M41.86 Other forms of scoliosis, lumbar region; M99.63 Osseous and subluxation stenosis of intervertebral foramina of lumbar region | CPT/HCPCS: 72148 ==

== ENCOUNTER 2025-04-16 12:51 | Outpatient (AMB) | payer MEDICARE, SELFPAY ==
--- NOTE | 2025-04-16 12:56 | HO.SPINEOV ---
Vital Signs 04/16/25 13:01 Height 4 ft 10 in Weight 91 lb BMI 19.0 Intake Visit Reasons: lumbar disc disease Intake Note: is here today c/o low back pain that radiates to her groin. 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 Allergies Sulfa (Sulfonamide Antibiotics) Allergy (Severe, Verified 04/16/25 13:00) Anaphylaxis sulfamethoxazole [From Bactrim] Allergy (Severe, Verified 04/16/25 13:00) Anaphylaxis trimethoprim [From Bactrim] Allergy (Severe, Verified 04/16/25 13:00) Anaphylaxis codeine [CODEINE] Allergy (Intermediate, Verified 04/16/25 13:00) GI UPSET erythromycin base Adverse Reaction (Severe, Verified 04/16/25 13:00) gi upset Physical Exam Vital Signs: BMI result Body Mass Index 19.0 Assessment & Plan Assessment & Plan (1) Compression fracture of L1 lumbar vertebra: Code(s): S32.010A - Wedge compression fracture of first lumbar vertebra, initial encounter for closed fracture Category: Medical Plan Dear DR Vaughn, Thank you for referring Mrs Friedman to our office today. She is a very nice 79-year-old female known to Dr. Conteh from previous anterior cervical fusion number of years ago at our previous practice at [facility] who presents for evaluation of hip pain on the left side with numbness of her anterior thigh. She does not recall any specific event that may have started it, she does do what she calls aggressive gardening and feels like maybe she cause an issue when she was doing some edging with a tool. For whatever reason, the next day she woke up and had severe pain along the edge of her left hip going into her anterior thigh. She was treating herself with Tylenol and ibuprofen. She ultimately underwent some imaging including a lumbar MRI this showed an acute L1 compression fracture and she was sent today to see us. She is currently feeling much better than she was 6 weeks ago when this started. She has mostly back to her normal activities. She is going out for her daily walks with just a little bit of discomfort. PMH: History of colon cancer diagnosed I believe a year to go and had resection with clean margins, did not need any chemotherapy, history of osteoporosis, but reports that after taking Reclast, she has now been put into the osteopenia category. She has history of pulmonary fibrosis, vitamin-D deficiency, hypercalciuria. Social hx: She has not smoke drink use any recreational drugs Medications: Please see the [employer] list included Allergies: Please see the [employer] list Physical exam: Awake alert oriented no acute distress, she is able to stand up and walk on her own independently in the hallway, gait is stable, strength is full, reflexes 3+ and symmetric at the patella. Imaging review: There is a lumbar MRI done a few weeks ago which I compared to an abdominal CT scan done in November and it shows a L1 compression fracture which is acute on the STIR imaging sequence. 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 There are varying degrees of foraminal stenosis and mild lumbar stenosis throughout. Impression: 79-year-old female who awoke about 6 weeks ago with severe left hip pain with some numbness going into her anterior thigh without any specific event associated with it. She was ultimately diagnosed with an L1 compression fracture but she has never really had any back pain to report. Either way, the pain seems to have receded and she is much more functional and comfortable at this point. Certainly given the amount of arthritis in her spine that could have just been an irritated nerve root and the compression fracture could be incidental. Again, though the natural history here is that these things tend to go away if given enough time and she seems to have healed herself up so she does not need any surgery or intervention for the fracture or the spondylosis. She does not need a brace, but she does use a lumbar corset when she is gardening and this is certainly reasonable if it makes her feel better. She has no specific restrictions. Thank you for allowing us to care for your patient. The total time spent with this visit with this patient was 45 minutes reviewing history, physical exam, lumbar imaging review, and implementation of treatment plan or further diagnostic testing Ant Conteh MD,PhD [facility] Coding Level of Care Code New Pt Level 4 (26634) Diagnoses Compression fracture of L1 lumbar vertebra S32.010A
[2025-04-16 13:01] VITALS: BMI 19.0
--- OUTSIDE RECORDS SUMMARY | 2025-04-16 14:58 | XMS_ITS | Patient Health Record ---
Author Organization Kendell Vaughn MD Address [address] [place] [phone] Care Team Providers Care Area Representative Name Role Phone Kendell Vaughn Primary Care Provider [phone] Allergies Allergen (clinical drug ingredient) Drug/Non Drug Allergy documented on EMR Reaction Allergy Type Onset Date Status codeine Codeine Sulfate gi upset Drug Allergy A ctive sulfamethoxazole / trimethoprim Bactrim DS heart palpitations Drug Allergy Active erythromycin erythromycin (uncoded) gi upset Allergy Active Results Component Value Reference Range Notes UA ClnCatch+Micro w/rflx Cul t Reviewed date:02/24/2025 09:53:03 AM Interpretation: Performing Lab:[facility], [address] [place] [address] Notes/Report: Urine, Clean Catch Color Urine Yellow Appearance Urine Turbid PH 8.0 5.0-9.0 Glucose Urine UA Negative Negative mg/dL Urine Blood Negative Negative Specific Dalton - Urine 1.015 1.005-1.025 Urine Protein Negative [...] ff Reviewed date:08/27/2024 06:47:49 PM Interpretation: Performing Lab:[facility], [address] [place] [address] Notes/Report: White Blood Count 5.2 4.8-10.8 X10*3/uL [...] NRBC Abs Auto 0.000 0.0-0.012 X10*3/uL Comprehensive [place]. Panel [facility] Reviewed date:08/28/2024 09:26:45 PM Interpretation: Performing Lab:[facility], [address] [place] [address] Notes/Report: Sodium 139 135-145 mmol/L Potassium 4.2 3.3-5.1 mmol/L Chloride 103 96-108 mmol/L Carbon Dioxide 30 22-29 mmol/L Anion Gap 10 12-20 Blood Urea Nitrogen 17 9-16 mg/dL Creatinine 0.69 0.5-1.4 mg/dL Estimated Glomerular Filt Rate > 60 NOTE: For -Croatian individuals, multiply the result by 1.210. Chronic [...] PROFILE Reviewed date:08/27/2024 06:41:00 PM Interpretation: Performing Lab:[facility], [address] [place] [phone] Notes/Report: Iron 123 30-160 mcg/dL Total Iron Binding Capacity 284 228-428 mcg/dL Percent Iron Saturation 43 15-50 % Unsaturated Iron Binding 161 Lipid Panel Reviewed date:08/27/2024 06:41:40 PM Interpretation: Performing Lab:[facility], [address] [place] [address] Notes/Report: Triglycerides 60 <150 mg/dL Desirable Triglyceride: [...] t Reviewed date:08/28/2024 09:35:22 PM Interpretation: Performing Lab:[facility], [address] [place] [address] Notes/Report: Urine, Clean Catch Color Urine Yellow Appearance Urine Clear PH 7.5 5.0-9.0 Glucose Urine UA Negative Negative mg/dL Urine Blood Negative Negative Specific Dalton - Urine 1.015 1.005-1.025 Urine Protein Negative [...] t Reviewed date:02/10/2025 09:39:40 AM Interpretation: Performing Lab:[facility], [address] [place] [address] Notes/Report: Urine, Clean Catch Color Urine Yellow Appearance Urine Cloudy PH 5.5 5.0-9.0 Glucose Urine UA Negative Negative mg/dL Urine Blood Large (3+) Negative Specific Dalton - Urine 1.010 1.005-1.025 Urine Protein 30 (1+) Neg-Trace mg/dL Urine Ketones Negative Negative mg/dL Nitrite Urine Negative Negative Leukocyte Esterase Urine Large (3+) Negative RBC Urine >20 0-2 /HPF WBC Urine >50 0-5 /HPF Squamous Epithelial Cell Urine 0-2 0-2 /HPF Bacteria Urine Trace None Seen Hyaline Casts Urine 0-2 0-2 /LPF Urinalysis and Microscopic Reviewed date:03/05/2025 04:52:46 PM Interpretation: Performing Lab:[address] [address] Notes/Report: Color Urine Yellow Appearance Urine Clear PH 6.5 5.0-9.0 Glucose Urine UA Negative Negative mg/dL Urine Blood Negative Negative Specific Dalton - Urine <= 1.005 1.005-1.025 Urine Protein Negative Neg-Trace mg/dL Urine Ketones Negative Negative mg/dL Nitrite Urine Negative Negative Leukocyte Esterase Urine Large (3+) Negative RBC Urine 0-2 0-2 /HPF WBC Urine 11-20 0-5 /HPF Squamous Epithelial Cell Urine 0-2 0-2 /HPF Bacteria Urine None Seen None Seen Hyaline Casts Urine 0-2 0-2 /LPF Urine Culture Reviewed date:03/06/2025 03:39:20 PM Interpretation: Performing Lab:[address] [address] Notes/Report: Urine Culture Report Result Urine Culture < 10,000 cfu/ml XR sacroiliac joint min 3V Reviewed date:03/19/2025 12:25:53 PM Interpretation: Performing Lab: Notes/Report: [address] [address] XRay Report Signed Patient: Tiffanie Friedman MR#: [id number] : 1945 Acct:[id number] Age/Sex: 79 / F ADM Date: 03/19/25 Loc: BLAINE Attending Dr: Kendell Vaughn MD Ordering Physician: Kendell Vaughn MD Date of Service: 03/19/25 Procedure(s): XR sacroiliac joint min 3V Accession Number(s): [id number] cc: Kendell Vaughn MD EXAMINATION: XR SACROILIAC [...] 03/19/25 1052 DD/ 1025 TD/TT: 03/19/25 1040 [employer]: [place] [address] XRay Report Signed Patient: Tiffanie Friedman MR#: [id number] : 1945 Acct:[id number] Age/Sex: 79 / F ADM Date: 03/19/25 Loc: HO.XRAY Attending Dr: Kendell Vaughn MD Ordering Physician: Kendell Vaughn MD Date of Service: 03/19/25 Procedure(s): XR sacroiliac joint min 3V Accession Number(s): [id number] cc: Kendell Vaughn MD EXAMINATION: XR SACROILIAC [...] Brennan Garcia MD 03/19/2025 10:52 AM EDT RP Dictated By: Brennan Garcia MD Signed By: <Electronically signed by Brennan Garcia MD in OV> 03/19/25 1052 DD/ 1025 TD/TT: 03/19/25 1040 [employer]: XR hip LT min 2V Reviewed date:03/19/2025 12:26:24 PM Interpretation: Performing Lab: Notes/Report: [address] [address] XRay Report Signed Patient: Tiffanie Friedman MR#: [id number] : 1945 Acct:[id number] Age/Sex: 79 / F ADM Date: 03/19/25 Loc: HO.XRAY Attending Dr: Kendell Vaughn MD Ordering Physician: Kendell Vaughn MD Date of Service: 03/19/25 Procedure(s): XR hip LT min 2V Accession Number(s): [id number] cc: Kendell Vaughn MD EXAMINATION: XR HIP, [...] 03/19/25 1050 DD/ 1004 TD/TT: 03/19/25 1040 [employer]: [address] [address] XRay Report Signed Patient: Tiffanie Friedman MR#: [id number] : 1945 Acct:[id number] Age/Sex: 79 / F ADM Date: 03/19/25 Loc: HO.XRAY Attending Dr: Kendell Vaughn MD Ordering Physician: Kendell Vaughn MD Date of Service: 03/19/25 Procedure(s): XR hip LT min 2V Accession Number(s): [id number] cc: Kendell Vaughn MD EXAMINATION: XR HIP, [...] LT min 2V IMPRESSION: 1. 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 2. Calcific enthesopathy of the abductor tendons. Electronically josh d by: Brennan Garcia MD 03/19/2025 10:50 AM EDT Dictated By: Brennan Garcia MD Signed By: <Electronically signed by Brennan Garcia MD in OV> 03/19/25 1050 DD/ 1004 TD/TT: 03/19/25 1040 [employer]: MEENU ClSwapnaatch+Micro w/rflx Cul t Reviewed date:03/26/2025 02:28:32 PM Interpretation: Performing Lab:[facility], [address] [place] [phone] Notes/Report: Urine, Clean Catch Color Urine Yellow Appearance Urine Clear PH 6.0 5.0-9.0 Glucose Urine UA Negative Negative mg/dL Urine Blood Trace Negative Specific Dalton - Urine 1.015 1.005-1.025 Urine Protein Negative Neg-Trace mg/dL Urine Ketones Negative Negative mg/dL Nitrite Urine Negative Negative Leukocyte Esterase Urine Small (1+) Negative RBC Urine 0-2 0-2 /HPF WBC Urine 0-5 0-5 /HPF Squamous Epithelial Cell Urine 0-2 0-2 /HPF Bacteria Urine None Seen None Seen Hyaline Casts Urine 0-2 0-2 /LPF XR lumbar spine 2-3V Reviewed date:03/12/2025 05:04:38 PM Interpretation: Performing Lab: Notes/Report: [address] [address] XRay Report Signed Patient: Tiffanie Friedman MR#: [id number] : 1945 Acct:[id number] Age/Sex: 79 / F ADM Date: 03/10/25 Loc: HO.XRAY Attending Dr: Kendell Vaughn MD Ordering Physician: Kendell Vaughn MD Date of Service: 03/10/25 Procedure(s): XR lumbar spine 2-3V Accession Number(s): [id number] cc: Kendell Vaughn MD EXAMINATION: XR LUMBOSACRAL [...] 03/12/25 1348 DD/ 1348 TD/TT: 03/10/25 1358 [employer]: [place] [address] XRay Report Signed Patient: Tiffanie Friedman MR#: [id number] : 1945 Acct:[id number] Age/Sex: 79 / F ADM Date: 03/10/25 Loc: HO.XRLAURA Attending Dr: Kendell Vaughn MD Ordering Physician: Kendell Vaughn MD Date of Service: 03/10/25 Procedure(s): XR lum bar spine 2-3V Accession Number(s): [id number] cc: Kendell Vaughn MD EXAMINATION: XR LUMBOSACRAL [...] 03/12/25 1348 DD/ 1348 TD/TT: 03/10/25 1358 [employer]: Complete Blood Count no Diff Reviewed date:05/26/2024 06:21:07 PM Interpretation: Performing Lab:[facility], [address] [place] [address] Notes/Report: White Blood Count 6.5 4.8-10.8 X10*3/uL [...] Abs Auto 0.000 0.0-0.012 X10*3/uL Leukemia/Lymphoma Eval. Nguyễno d Reviewed date:05/28/2024 02:05:35 PM Interpretation: Performing Lab:[facility], [address] [place] [address] Notes/Report: LEUKEMIA/LYMPHOMA [id number] BLOOD LLE Interpretation See Note See repor t from [employer] in the EMR. Comprehensive Met. Panel Reviewed date:05/26/2024 06:11:43 PM Interpretation: Performing Lab:[facility], [address] [place] [address] Notes/Report: Sodium 139 135-145 mmol/L Potassium 4.3 [...] Glomerular Filt Rate > 60 NOTE: For -Croatian individuals, multiply the result by 1.210. Chronic [...] Ferritin Reviewed date:05/26/2024 06:01:37 PM Interpretation: Performing Lab:[address] [address] Notes/Report: Ferritin 61 10-250 ng/mL Lactate Dehydrogenase Reviewed date:05/26/2024 05:57:02 PM Interpretation: Performing Lab:[facility], [address] [place] [address] Notes/Report: Lactate Dehydrogenase 209 122-220 U/L Vitamin B12 and Folate Reviewed date:05/26/2024 06:10:00 PM Interpretation: Performing Lab:[address] [address] Notes/Report: Vitamin B12 1459 200-900 pg/mL NORMAL 200-900 PG/ML INDETERMINATE 160-199 PG/ML DEFICIENT < 160 PG/ML Folate 13.4 > or = 4.0 ng/mL Reference Values: > or = 4.0 ng/mL < 4.0 ng/mL suggests folate deficiency Methotrexate, aminopterin and folinic acid (leucovorin) are chemotherapeutic agents whose molecular structures are similar to folate; therefore, the [employer] folate assay cannot be used for patients using these drugs. Thyroid Stimulating Hormone Reviewed date:05/26/2024 05:56:53 PM Interpretation: Performing Lab:[facility], [address] [facility], [place] [address] Notes/Report: Thyroid Stimulating Hormone 0.95 0.32-4.0 uIU/mL TSH 3rd Generation ([facility]) MM tomosynthesis screening B I Reviewed date:08/25/2024 11:03:33 AM Interpretation: Performing Lab: Notes/Report: [facility] [address] [place] [address] Mammography Report Signed Patient: Tiffanie Friedman MR#: [id number] : 1945 Acct:[id number] Age/Sex: 78 / F ADM Date: 08/07/24 Loc: HO.MAMMO Attending Dr: Kendell Vaughn MD Ordering Physician: Kendell Vaughn MD Results: 1Ne gative Date of Service: 08/07/24 Follow Up: 1 Year From [facility] Mammogram Procedure(s): MM tomosynthesis screening BI Accession Number(s): [id number] cc: Kendell Vaughn MD EXAMINATION: MM SCREENING [...] OV> 08/19/241748 DD/ 1130 TD/TT: 08/07/24 1156 [employer]: [place] [facility] [address] [place] [address] Mammography Report Signed Patient: Tiffanie Friedman MR#: [id number] : 1945 Acct:[id number] Age/Sex: 78 / F ADM Date: 08/07/24 Loc: HO.MAMMO Attending Dr: Kendell Vaughn MD Ordering Physician: Kendell Vaughn MD Results: 1Ne gative Date of Service: 08/07/24 Follow Up: 1 Year From [facility] Mammogram Procedure(s): MM tomosynthesis screening BI Accession Number(s): [id number] cc: Kendell Vaughn MD EXAMINATION: MM SCREENING [...] OV> 08/19/241748 DD/ 1130 TD/TT: 08/07/24 1156 [employer]: Urine Culture Reviewed date:08/27/2024 06:47:18 PM Interpretation: Performing Lab:[address] [address] Notes/Report: Urine Culture Report Result Urine Culture < 10,000 cfu/ml Complete Blood Count Auto Di ff Reviewed date:11/24/2024 05:38:48 PM Interpretation: Performing Lab:[facility], [address] [place] [address] Notes/Report: White Blood Count 6.7 4.8-10.8 X10*3/uL [...] Panel Reviewed date:11/24/2024 05:24:22 PM Interpretation: Performing Lab:[facility], [address] [place] [address] Notes/Report: Sodium 140 135-145 mmol/L Potassium 4.3 [...] Antigen Reviewed date:11/24/2024 05:31:30 PM Interpretation: Performing Lab:[facility], [address] [place] [address] Notes/Report: Carcinoembryonic Antigen 4.40 CEA Reference Range: [...] date:12/06/2024 12:28:50 PM Interpretation: Performing Lab: Notes/Report: [address] [address] [address] Scan Report Signed Patient: Tiffanie Friedman MR#: [id number] : 1945 Acct:[id number] Age/Sex: 79 / F ADM Date: 12/05/24 Loc: HO.CT Attending Dr: Mckayla Wang MD Ordering Physician: Mckayla Wang MD Date of Service: 12/05/24 Procedure(s): CT abdomen pelvis w IV con Accession Number(s): [id number] cc: Kendell Vaughn MD; Mckayla Wang MD Report Number: [id number]: Total DLP = 186.00 mGy-cm CLINICAL HISTORY: Colon cancer, surveillance CT abdomen and pelvis with contrast Comparison: CT/MO/SR - CT ABDOMEN PELVIS WO IV CON [...] 12/05/24 1524 DD/ 1523 TD/TT: 12/05/24 1523 [employer]: [address] [address] [address] Scan Report Signed Patient: Tiffanie Friedman MR#: [id number] : 1945 Acct:[id number] Age/Sex: 79 / F ADM Date: 12/05/24 Loc: HO.CT Attending Dr: Mckayla Wang MD Ordering Physician: Mckayla Wang MD Date of Service: 12/05/24 Procedure(s): CT abdomen pelvis w IV con Accession Number(s): [id number] cc: Kendell Vaughn MD; Mckayla Wang MD Report Number: [id number]: Total DLP = 186.00 mGy-cm CLINICAL HISTORY: Co joseph cancer, surveillance CT abdomen and pelvi s with contrast Comparison: CT/MO/SR - CT ABDOMEN PELVIS WO IV CON [...] document has be en electronically signed by: Faib Oliveira MD on 12/05/2024 15:23:40 Dictated By: Fabi Oliveira MD Signed By: <Electronically signed by Fabi Oliveira MD in OV> 12/05/24 1524 DD/ 1523 TD/TT: 12/05/24 1523 [employer]: Urine Culture Reviewed date:02/11/2025 02:05:42 PM Interpretation: Performing Lab:[facility], [address] [place] [address] Notes/Report: O:ESCCOL Escherichia coli Urine Culture Quant Urine Culture 50,000 to 100,000 cfu/mL Ampicillin >=32 Cefazolin (Urine) 8 Cefepime <=0.12 Ceftriaxone <=0.25 Ciprofloxacin <=0.06 Gentamicin >=16 Nitrofurantoin <=16 Trimethoprim/Sulfametho xazole >=320 Urine Culture Reviewed date:02/26/2025 06:18:54 PM Interpretation: Performing Lab:[facility], [address] [place] [address] Notes/Report: Urine Culture Report Result Urine Culture 10,000 to 50,000 cfu/ml Urine Culture Mixed bacterial travis a characteristic of Urine Culture urogenital contamination. Urine Culture Reviewed date:03/19/2025 12:28:52 PM Interpretation: Performing Lab:[address] [address] Notes/Report: O:ESCCOL Escherichia coli Urine Culture Quant Urine Culture > 100,000 cfu/mL Ampicillin >=32 Cefazolin (Urine) 8 Cefepime <=0.12 Ceftriaxone <=0.25 Ciprofloxacin <=0.06 Gentamicin >=16 Nitrofurantoin <=16 Trimethoprim/Sulfametho xazole >=320 NM bone scan whole body Reviewed date:03/19/2025 12:29:02 PM Interpretation:03-19-2025 Performing Lab: Notes/Report: [address] [address] Nuclear Medicine Report Signed Patient: Tiffanie Friedman MR#: [id number] : 1945 Acct:[id number] Age/Sex: 79 / F ADM Date: 03/17/25 Loc: SULEMA Attending Dr: Kendell Vaughn MD Ordering Physician: Kendell Vaughn MD Date of Service: 03/17/25 Procedure(s): NM bone scan whole body Accession Number(s): [id number] cc: Kendell Vaughn MD EXAMINATION: NM BONE [...] 03/17/25 1502 DD/ 1000 TD/TT: 03/17/25 1345 [employer]: [place] [address] Nuclear Medicine Report Signed Patient: Tiffanie Friedman MR#: [id number] : 1945 Acct:[id number] Age/Sex: 79 / F ADM Date: 03/17/25 Loc: SULEMA Attending Dr: Kendell Vaughn MD Ordering Physician: Kendell Vaughn MD Date of Service: 03/17/25 Procedure(s): NM bon e scan whole body Accession Number(s): [id number] cc: Kendell Vaughn MD EXAMINATION: NM BONE [...] 03/17/25 1502 DD/ 1000 TD/TT: 03/17/25 1345 [employer]: Urine Culture Reviewed date:03/27/2025 12:49:58 PM Interpretation: Performing Lab:[facility], [address] [place] [address] Notes/Report: Urine Culture Report Result Urine Culture < 10,000 cfu/ml MR lumbar spine wo con Reviewed date:04/02/2025 12:37:47 PM Interpretation: Performing Lab: Notes/Report: [address] [address] Magnetic Resonance Report Signed Patient: Tiffanie Friedman MR#: [id number] : 1945 Acct:[id number] Age/Sex: 79 / F ADM Date: 04/01/25 Loc: HO.MRI Attending Dr: Kendell Vaughn MD Ordering Physician: Kendell Vaughn MD Date of Service: 04/01/25 Procedure(s): MR lumbar spine wo con Accession Number(s): [id number] cc: Kendell Vaughn MD EXAMINATION: MR LUMBAR SPINE WITHOUT CONTRAST CLINICAL INFORMATION: Disc disease. COMPARISON: January 16, 2024 reported scoliosis and grade 1 anterolisthesis L3-4 and L4-5 and likely L1-2. TECHNIQUE: MRI of the lumbar spine was obtained using routine sequences without contrast. FINDINGS: Last rib-bearing vertebra labeled T12. There is bone marrow STIR signal abnormality throughout the vertebral body of L1 and extending into the left pedicle. There is 30% volume loss of the vertebral body. There is a 3 mm retrocrural portion of the posterior superior endplate. There is a levoconvex rotoscoliosis apex at L3-4. There is multilevel marginal osteophyte formation and disc desiccation throughout the axial skeleton. There is bone marrow inhomogeneity. There is grade 1 anterolisthesis L3-4 and L4-5. There is grade 1 retrolisthesis at L1-2. Conus medullaris ends at pedicle of L1 with normal signal. T12-L1: Broad-based disc bulging. Facet joint and ligamentum flavum hypertrophy. Reduced AP diameter of the thecal sac and the neural foramina. L1-2: Broad-based disc bulging. Facet joint and ligamentum flavum hypertrophy resulting in deformity of the thecal sac and reduced AP diameter. Bilateral neuroforamina narrowing. L2-3: Broad-based disc bulging. Facet joint and ligamentum flavum hypertrophy. Reduced AP diameter of the thecal sac and the neuroforamina. L3-4: Broad-based disc bulging. Grade 1 anterolisthesis. Facet joint and ligamentum flavum hypertrophy. CSF effacement of the thecal sac and central spinal canal stenosis. Bilateral neuroforamina narrowing, right greater than left likely encroaching the neural elements. L4-5: Grade 1 anterolisthesis. Facet joint and ligamentum flavum hypertrophy. Reduced AP diameter of the thecal sac and the neural foramina abutting the neural elements. L5-S1: No disc herniation. No central spinal canal stenosis. Bilateral neuroforamina narrowing, left greater than right likely encroaching the exiting nerve roots. Fatty atrophy of the lower lumbar muscles from L3-4 to sacrum. Asymmetric volume loss of the right psoas muscle. No prevertebral compartment hematoma, mass or fluid collection. 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 Multilevel spondylosis and levoconvex rotoscoliosis with a grade 1 anterolisthesis L3-4 and L4-5 and grade 1 retrolisthesis L1 to close in central spinal canal and bilateral neuroforamina stenosis more pronounced at L3-4 encroaching the neural elements. Electronically signed by: Seng Kang MD 04/02/2025 07:18 AM EDT RP Dictated By: Seng Fox MD Signed By: <Electronically signed by Seng Cornejo MD in OV> 04/02/25 0718 DD/ 25 TD/TT: 04/01/25 184 [employer]: [place] [address] Magnetic Resonance Report Signed Patient: Tiffanie Friedman MR#: [id number] : 1945 Acct:[id number] Age/Sex: 79 / F ADM Date: 04/01/25 Loc: HO.MRI Attending Dr: Kendell Vaughn MD Ordering Physician: Kendell Vaughn MD Date of Service: 04/01/25 Procedure(s): MR lum bar spine wo con Accession Number(s): [id number] cc: Kendell Vaughn MD EXAMINATION: MR LUMBAR SPINE WITH OUT CONTRAST CLINICAL INFORMATION: Disc disease. COMPARISON: January 16, 2024 report ed scoliosis and grade 1 anterolisthesis L3-4 and L4-5 and likely L1-2. TECHNIQUE: MRI of the lumbar sp ine was obtained using routine sequences without contrast. FINDINGS: Last rib-bearing vertebra labeled T12. There is bone marrow STIR signal abnormality throughout the vertebral body of L1 and extending into the left pedicle. There is 30% volume loss of the vertebra l body. There is a 3 mm retrocrural portion of the posterior superior endplate. There is a levoconve x rotoscoliosis apex at L3-4. There is multilevel marginal osteophyte formation and disc desiccation throughout the axial skeleton. There is bone marrow inhomogeneity. There is grade 1 anterolisthesis L3-4 and L4-5. There is grade 1 retrolisthesis at L1-2. Conus medullaris end s at pedicle of L1 with normal signal. T12-L1: Broad-based disc bulging. Facet joint and ligamentum flavum hypertrophy. Reduced AP diameter of the thecal sac and the neural foramina. L1-2: Broad-based disc bulging. Facet joint and ligamentum flavum hypertrophy resulting in deformi ty of the thecal sac and reduced AP diameter. Bilateral neuroforam shmuel narrowing. L2-3: Broad-based disc bulging. Facet joint and ligamentum flavum hypertrophy. Reduced AP diameter of the thecal sac and the neuroforamina. L3-4: Broad-based disc bulging. Grade 1 anterolisthesis. Facet joint and ligamentum flavum hypertrophy. CSF effacement of the thecal sac and central spinal canal stenosis. Bilateral neuroforamina narrowing, right greater than left likely encroaching the neural elements. L4-5: Grade 1 anterolisthesis. Facet joint and ligamentum flavum hypertrophy. Reduced AP diameter of the thecal sac and the neural foramina abutting the neural elements. L5-S1: No disc herniation. No central spinal canal stenosis. Bilateral neuroforamina narrowing, left greater than right likely encroaching the exiting nerve roots. Fatty atrophy of the lower lumbar muscles from L3-4 to sacrum. Asymmetric volume lo ss of the right psoas muscle. No prevertebral compartment hematoma, mass or fluid collection. MR/MR lumbar spine wo con IMPRESSION: Acute to subacute likely osteoporotic compression fracture at L1 resulting in 30% vol ume loss and 3 mm retropulsion upon central canal. Multilevel spondylos is and levoconvex rotoscoliosis with a grade 1 anterolisthesis L3-4 and L4-5 and grade 1 retrolisthesis L1 to close in central spinal canal and bilateral neuroforamina stenosis more pronounced at L3-4 encroaching the neural elements. Electronically johs d by: Seng Kang MD 04/02/2025 07:18 AM EDT Dictated By: Seng Casillas MD Signed By: <Electronically signed by Seng Cornejo MD in OV> 04/02/25 0718 DD/ 1826 TD/TT: 05/21/25 1848 [employer]: Reason For Referral Reason Lumbar disc disease Diagnosis 1 Lumbar disc disease (M51.9) Referral Organization Kendell Vaughn MD Referring Provider First Name Kendell Referring Provider Last Name Roderick Referring Provider Speciality Internal M edicine Referred Provider Felix Thompson Referred Provider Specialty Neurosurgery General Notes Yamile Bennett 0 03/26/2025 10:52:09 AM > MRI pending, Yamile Bennett 04/03/2025 03:21:43 PM > referral info faxed with MRI report, Yamile Bennett 04/13/2025 11:45:20 AM > patient is aware of appt Referral Priority Routine Referral Appointment Date 04/16/2025 Medications Medication SIG (Take, Route, Frequency, Duration) Notes Start Date End Date Status Albuterol Sulfate HFA 108 (90 Base) MCG/ACT 2 puff as needed Inhalation every 4 hrs 02/16/2023 Active Vitamin C 500 MG as directed Orally Active tiZANidine HCl 2 MG 1 tablet as needed Orally Three times a day Not-Rustam ing Ibuprofen 800 MG 1 TABLET ORALLY THRE E TIMES A DAY for 30 Not-Taking Ativan 0.5 MG 1 tablet as needed Orally Twice a day 06/15/2015 Not-Taking Methenamine Hippurate 1 GM 1 tablet Orally Twice a day for 10 day(s) Not-Taking Omeprazole 20 MG 1 capsule 30 minutes before morning meal Orally Once a day Active Estradiol 0.1 MG/GM 1 application Vagina l Two times a Week Active PriLOSEC OTC 20 MG 2 tablet 30 minutes before morning meal Orally Once a day Not-Taking Vitamin D (Cholecalciferol) 25 MCG (1000 UT) 1 capsule Orally Once a day Active Cranberry 405 MG 1 capsule with meals Orally Twice a day Active Stool Softener 100 MG 1 tablet as needed Orally three times a day Active Calcium 600 MG 1 tablet with meals Orally once a day Active PARoxetine HCl 10 MG TAKE 1 TABLET BY DC UT EVERY DAY IN THE MORNING for 90 Active Immunizations Vaccine Route Administration Date Status Comme nts Flu Vaccine IM Intramuscular 07/11/2011 Administered Flu Vaccine IM Intramuscular 07/29/2012 Administered PPSV23 (Pnemovax) Unknown 03/07/2009 Administered Prevnar 13 IM Intramuscular 03/07/2013 Administered Flu Vaccine IM Intramuscular 07/22/2013 Administered Flu Vaccine Unknown 08/27/2014 Administered received at [facility] PPSV23 (Pnemovax) Unknown 08/27/2014 Administered recei erika at [facility] Fluarix Quadrivalent IM Intramuscular 08/09/2015 Administe red Fluarix Quadrivalent IM Intramuscular 08/09/2015 Administe red Fluarix Quadrivalent IM Intramuscular 07/27/2016 Administe red Fluarix Quadrivalent IM Intramuscular 07/30/2017 Administe red TDaP Unknown 01/14/2018 Administered pt was given the vaccine at [facility] in [place] on [facility] Fluarix Quadrivalent IM Intramuscular 07/29/2018 Administe red Fluarix Quadrivalent Unknown 07/11/2019 Administered CV S Shingrix Unknown 07/11/2019 Administered [facility] #1 PPSV23 (Pnemovax) IM Intramuscular 12/15/2019 Administered Shingrix IM Intramuscular 10/20/2019 Administered Given at [facility]. Shingles Unknown 10/20/2019 Administered Influenza [...] Problem Status W/U Status Risk Notes Problem 71361415 Age-related osteoporosis without current pathological fracture (M81.0) Active confirmed Problem 669353366 Neuropathy (G62.9) Active confirmed Problem 82569559 Restless leg syn drome (G25.81) Active confirmed Problem 149818380 Reflux esophagit is (K21.00) Active confirmed Problem 63769797 Vitamin D defici ency (E55.9) Active confirmed Problem 96293741 Anxiety (F41.9) Active confirmed Problem Dysphagia (20742483) Dysphagia (R13.10) Active confirmed Problem 392656315 Malignant neopla sm of hepatic flexure (C18.3) Active confirmed Problem 003574727 Other headache syndrome (G44.89) Active confirmed Problem 52172045 Irritable bowel syndrome without diarrhea (K58.9) Active confirmed Problem Disorder of lumbar disc (020546571) Lumbar disc disease (M51.9) Active confirmed Problem 590878334 Gastroesophageal reflux disease without esophagitis (K21.9) Active confirmed Problem 80102572 Osteoporosis (M81.0) Active confirmed Problem 617705977 Abnormal mammogr am of left breast (R92.8) Active confirmed Problem 690116837 PAC (premature a trial contraction) (I49.1) Active confirmed Problem 49418748 Oropharyngeal dysphagia (R13.12) Active confirmed Problem 85263453 Iron deficiency anemia, unspecified iron deficiency anemia type (D50.9) Active confirmed Problem 91174262584792 Pharyngeal dysph agia (R13.13) Active confirmed Problem 775522296 Vaginal bleeding (N93.9) Active confirmed Problem 24997745 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) Active confirmed Problem 897041801 Pure hypercholesterolemia (E78.00) Active confirmed Problem 167991687 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) Active confirmed Problem 36965372 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) Active confirme d Problem Plain X-ray of chest abnormal (finding) (5054822789) Abnormal chest xray (R93.89) Active confirmed Problem 27892777 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 confirmed Problem 322735179 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) Active confirmed Problem 35204927 Senile cataract, unspecified age-related cataract type, unspecified laterality (H25.9) Active confirmed Vital Signs Blood pressure diastolic 50 mm Hg 04/07/2025 Height 59.5 in 04/07/2025 Blood pressure systolic 122 mm Hg 04/07/2025 Weight 94 lbs 04/07/2025 BMI 18.67 kg/m2 04/07/2025 Encounters Encounter Location Date Provider Diagnosis Kendell Vaughn MD [address] [place] [id number] 02/23/2025 Kendell Vaughn UTI (urinary tract infection) N39.0 Kendell Vaughn MD [address] [place] [address] [id number] 04/21/2024 Kendell Vaughn Pre-op evaluation Z0 1.818 and Senile cataract, unspecified age-related cataract type, unspecified laterality H25.9 Kendell Vaughn MD [address] [place] [address] [id number] 07/04/2024 Kendell Vaughn Palpitations R00.2 a nd Pulmonary fibrosis J84.10 Kendell Vaughn MD [address] [place] [address] [id number] 07/31/2024 Kendell Vaughn Palpitations R00.2 ; 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 and Encounter for immunization Z23 Kendell Vaughn MD [address] [place] [address] [id number] 08/26/2024 Kendell Vaughn Vitamin D deficiency E55.9 ; Pure hypercholesterolemia E78.00 and Iron deficiency anemia, unspecified iron deficiency anemia type D50.9 Kendell Vaughn MD [address] [place] [address] [id number] 09/05/2024 Kendell Vaughn Osteoporosis M81.0 ; Pure hypercholesterolemia E78.00 ; Vitamin D deficiency E55.9 ; Reflux esophagitis K21.00 and Depression screening Z13.31 Kendell Vaughn MD [address] [id number] 02/09/2025 Kendell Vaughn UTI (urinary tract infection) N39.0 Kendell Vaughn MD [address] [id number] 03/05/2025 Kendell Vaughn UTI (urinary tract infection) N39.0 Kendell Vaughn MD [address] [place] [address] [id number] 03/09/2025 Kendell Vaughn Compression fracture of fifth lumbar vertebra S32.050A Kendell Vaughn MD [address] [place] [address] [id number] 03/19/2025 Kendell Vaughn Compression fracture of first lumbar vertebra, with routine healing, subsequent encounter S32.010D and UTI symptoms R39.9 Kendell Vaughn MD [address] [place] [address] [id number] 03/26/2025 Kendell Vaughn Lumbar disc disease M51.9 and After-treatment Z51.89 Kendell Vaughn MD [address] [place] [address] [id number] 04/07/2025 Kendell Vaughn Lumbar disc disease M51.9 and Near syncope R55 Kendell Vaughn MD [address] [place] [address] [id number] 04/21/2024 Kendell Vaughn MD [address] [place] [address] [id number] 09/01/2024 Kendell Vaughn Osteoporosis M81.0 Kendell Vaughn MD [address] [place] [address] [id number] 03/06/2025 Kendell Vaughn MD [address] [place] [address] [id number] 03/09/2025 Kendell Vaughn MD [address] [place] [address] [id number] 03/10/2025 Kendell Vaughn Lumbar back pain M54 [...] any disorders. no uti/ order faxed to [facility] [place] [facility] dept , pending diagnostic testing 03/19/2025 Compression fracture of first lumbar vertebra, with routine healing, subsequent encounter (ICD-10 - S32.010D) the pain is not in the area of the compression fractuie, pending diagnostic testing 03/19/2025 UTI symptoms (ICD-10 - R39.9) patient verbalized understanding of medication and directions for use 03/26/2025 Lumbar disc disease (ICD-10 - M51.9) referral to dr thompson/ MRI orders faxed to [facility] [place] [place] [facility] dept 04/07/2025 Lumbar disc disease (ICD-10 - M51.9) referral to dr thompson/[facility] alex[facility] is already enterted in system and info faxed to Dr. Yady chang. 04/07/2025 Near syncope (ICD-10 - R55) will check pulse when she feels the light headedness 09/01/2024 Osteoporosis (ICD-10 - M81.0) 03/10/2025 Lumbar back pain (ICD-10 - M54.50) 07/31/2024 Encounter for immunization (ICD-10 - Z23) flu vaccine administered 08/26/2024 Iron deficiency anem ia, unspecified iron deficiency anemia type (ICD-10 - D50.9) 09/05/2024 Vitamin D deficiency (ICD-10 - E55.9) 03/26/2025 After-treatment (ICD -10 - Z51.89) pending labs 09/05/2024 Reflux esophagitis (ICD-10 - K21.00) 09/05/2024 Depression screening (ICD-10 - Z13.31) negative screen Plan Of Treatment Pending Test Test Name Order Date Electrocardiogram (EKG) 07/04/2024 Electrocardiogram (EKG) 05/28/2015 Electrocardiogram (EKG) 06/15/2016 MRI CERVICAL SPINE NO CONTRAST MRI LUMBAR SPINE NO CONTRAST 11/30/2023 MRI LUMBAR SPINE NO CONTRAST 03/26/2025 NUC WHOLE BODY SCAN BONE 11/09/2020 NUC [...] barium swallow 02/16/2022 FL barium swallow modified 08/14/2022 FL barium swallow modified 01/12/2023 MM tomosynthesis diagnostic BI XR DEXA axial skeleton 10/30/2023 NM bone scan whole body 03/09/2025 XR hip LT min 2V 11/29/2023 XR lumbar spine 2-3V 11/29/2023 XR cervical spine 3V 11/29/2023 Future Test Test Name Order Date Urinalysis and Microscopic 03/26/2025 Next Appt Details Provider Name:Kendell Cadena ier, 09/03/2025 07:15:00 AM, [address], [address], [place], [place], [phone], Provider Name:Kendell rodriguez, 09/10/2025 08:30:00 AM, [address] [facility], [address], [place], [place], [phone], Insurance Providers Payer Name Payer Address Payer Phone Subscriber Number Group Number Insured Name Patient Relationship to Insured Coverage Start Date Coverage End Date [employer] [address] [place] [address] [id number] Tiffanie Catalan Self - patient is the insured [facility] [address] [place], [place] [phone] [id number] Tiffanie Catalan Self - patient is the insured Medical (General) History Medical History History ICD Code colonoscopy 10/03/2013 and 2 005 negative - no further colonoscopies indicated per Dr. Rojo:12/04/23 colonoscopy pending path pap smear - negative (10/20/2013) blood on underwear. had cysto tizanidine is zanaflex Surgical History Surgery Date(Month/Year) Marcio, right fifth toe (Dr. Mcfarlane)
== END 2025-04-16 13:32 | disposition home or self-care (01) ==
LOC: HO.HNS 12:52
PROVIDERS: PCP Internal Medicine; Referring Provider Internal Medicine; Visit Provider Physician Assistant
DX: S32.010A Wedge compression fracture of first lumbar vertebra, initial encounter for closed fracture (principal)
CPT/HCPCS: 99204

== ENCOUNTER → 2025-04-16 12:51 | Outpatient (BNVA) | payer MEDICARE, SELFPAY | PROVIDERS: PCP Internal Medicine; Referring Provider Internal Medicine; Visit Provider Physician Assistant | DX: M25.552 Pain in left hip (principal); S32.010A Wedge compression fracture of first lumbar vertebra, initial encounter for closed fracture; X58.XXXA Exposure to other specified factors, initial encounter; Y93.9 Activity, unspecified; Y92.9 Unspecified place or not applicable; Y99.9 Unspecified external cause status | CPT/HCPCS: 99202 ==

== ENCOUNTER 2025-04-19 02:26 | Emergency (ER) | payer MEDICARE, SELFPAY ==
[2025-04-19 02:35] VITALS: BP 142/80; PULSE 81; O2SAT 97
[2025-04-19 02:36] VITALS: BP 144/71; PULSE 87; RESP 18; TEMP 36.8; BMI 18.8
[2025-04-19 03:20] LABS: MANUAL DIFF FLAG NO
[2025-04-19] MEDS: ondansetron HCL 4 MG/2 ML VIAL IVPUSH (03:20)
[2025-04-19 03:22] LABS: Basophils Percent Auto 0.2 % (0-2); Eosinophils Absolute Auto 0.1 X10*3/uL (0.0-0.4); Eosinophils Percent Auto 0.7 % (0-4); Hematocrit 37.3 % (37.0-47.0); Imm Gran Abs Auto 0.03 X10*3/uL (0.00-0.03); Imm Gran Pct Auto 0.3 % (0.0-0.4); Lymphocytes Absolute Auto 0.6 X10*3/uL (1.2-4.9); Mean Corpuscular HGB Conc 34.9 g/dl (31.0-35.0); Mean Corpuscular Hemoglobin 30.2 pg (27.0-33.0); Mean Corpuscular Volume 86.5 fL (80.0-98.0); Mean Platelet Volume 10.2 fL (9.4-12.3); Monocytes Absolute Auto 0.6 X10*3/uL (0.1-1.2); Monocytes Percent Auto 6.2 % (2-11); Neutrophils Absolute Auto 7.9 x10*3/uL (2.0-8.3); Neutrophils Percent Auto 85.6 % (45-73); Platelet Count 201 X10*3/uL (160-400); Red Blood Count 4.31 X10*6/uL (4.20-5.50); Red Cell Distribution Width 13.7 % (11.0-16.0); White Blood Count 9.2 X10*3/uL (4.8-10.8)
[2025-04-19 03:47] LABS: Alanine Aminotransferase 8 U/L (0-31); Albumin Level 3.7 g/dL (3.5-5.0); Anion Gap 12 (12-20); Aspartate Amino Transferase 24 U/L (5-31); Bilirubin Direct < 0.2 mg/dL (0.0-0.5); Bilirubin Total 0.2 mg/dL (0.0-1.0); Blood Urea Nitrogen 11 mg/dL (9-16); Calcium 8.6 mg/dL (8.4-10.2); Carbon Dioxide 25 mmol/L (22-29); Chloride 103 mmol/L (96-108); Creatinine Clr Calc Pharmacy 55.4; Estimated Glomerular Filt Rate > 60; Glucose Random 113 mg/dL (60-115); Potassium 3.8 mmol/L (3.3-5.1); Sodium 136 mmol/L (135-145); Total Protein 6.5 g/dL (6.5-8.0)
[2025-04-19 04:01] LABS: Lipase 333 U/L (8-78)
[2025-04-19 04:10] LABS: Alkaline Phosphatase 63 U/L (39-117)
--- NOTE | 2025-04-19 06:00 | PC.NURSE ---
ambulated to BR with a steady gait
[2025-04-19 06:02] LABS: Appearance Urine Clear; Color Urine Yellow; Glucose Urine UA Negative (Negative); Leukocyte Esterase Urine Negative (Negative); Nitrite Urine Negative (Negative); PH 5.5 (5.0-9.0); UMIC TRIGGER UACC YES; Urine Blood Negative (Negative); Urine Ketones Negative (Negative); Urine Protein 30 (1+) mg/dL (Neg-Trace)
[2025-04-19 06:07] LABS: Bacteria Urine None Seen (None Seen); Hyaline Casts Urine 0-2 /LPF (0-2); RBC Urine 0-2 /HPF (0-2); Squamous Epithelial Cell Urine 0-2 /HPF (0-2); WBC Urine 0-5 /HPF (0-5)
--- NOTE | 2025-04-19 07:24 | ED_ITS ---
HPI - Abdominal Pain General Chief Complaint: Abdominal Pain Stated Complaint: ABD PAIN/ NAUSEA Time Seen by Provider: 04/19/25 07:10 Source: patient and EMS Mode of arrival: EMS Limitations: no limitations History of Present Illness ED Provider: HPI narrative: past medical history of glaucoma, osteoporosis, pulmonary fibrosis, vitamin-D deficiency, low back pain issues, esophageal strictures presented with waking up 01:00 in the morning feeling nausea, vomiting, having diarrhea, and having a headache. And her low back pain was also exacerbated. She is concerned as it has some prior time when she has had similar symptoms she went and had a CT done and CT revealed that she had a colon cancer and she had surgery, she is scheduled for colonoscopy in May. She also spends time outside in the garden and admits that she forgets to hydrate. No chest pain no shortness of breath no fevers or chills. Has had no dysuria. Related Data Home Medications ?Medication ?Instructions ?Recorded ?Confirmed cranberry fruit 400 mg capsule 400 mg PO DAILY 11/22/20 12/16/24 docusate sodium 100 mg capsule 100 mg PO DAILY 11/22/20 12/16/24 (Colace) estradiol 0.01% (0.1 mg/gram) 1 g vaginal 2XW 11/30/21 12/16/24 vaginal cream omeprazole 20 mg capsule,delayed 20 mg PO DAILY PRN Acid Reflux 06/16/22 12/16/24 release paroxetine HCl 10 mg tablet 10 mg PO QAM 12/03/23 12/16/24 albuterol sulfate 90 mcg/actuation 1 inh inhalation QID 02/21/24 12/16/24 aerosol inhaler (Ventolin HFA) Previous Rx's ?Medication ?Instructions ?Recorded calcium 315 mg (as 1 tab PO DAILY 30 days #90 tabs 04/23/23 citrate)-vitamin D3 5 mcg (200 unit) tablet cholecalciferol (vitamin D3) 25 25 mcg PO DAILY #90 caps 08/19/24 mcg (1,000 unit) capsule (Vitamin D3) barium sulfate 2 % (w/v) oral 450 ml PO BID #900 mL 12/02/24 suspension (Readi-Cat 2) ondansetron 4 mg disintegrating 4 mg PO Q8H PRN nausea and 04/19/25 tablet vomiting #4 tabs sucralfate 100 mg/mL oral 5 ml PO QID #300 mL 04/19/25 suspension (Carafate) Allergies Allergy/AdvReac Type Severity Reaction Status Date / Time Sulfa (Sulfonamide Allergy Severe Anaphylaxis Verified 04/19/25 02:41 Antibiotics) sulfamethoxazole Allergy Severe Anaphylaxis Verified 04/19/25 02:41 [From Bactrim] trimethoprim [From Bactrim] Allergy Severe Anaphylaxis Verified 04/19/25 02:41 codeine [CODEINE] Allergy Intermediate GI UPSET Verified 04/19/25 02:41 erythromycin base AdvReac Severe gi upset Verified 04/19/25 02:41 Review of Systems Constitutional: Reports as per HPI [facility] Past Medical History Medical History Cataract (lens) fragments in eye following cataract surgery, right eye Cataract (lens) fragments in eye following cataract surgery, left eye Myofascial pain Colon cancer Vasovagal near syncope Diarrhea GI (gastrointestinal bleed) Pulmonary fibrosis Glaucoma Vitamin D deficiency Hypercalciuria Osteoporosis Surgical History History of hemicolectomy S/P laparoscopic colectomy (12/05/23) S/P right colectomy Hx of appendectomy History of endoscopy History of surgery on wrist Hx of neck surgery Hx of adenoidectomy Hx of tonsillectomy Hx of colonoscopy Hx of hammer toe correction History of carpal tunnel surgery Family History Family History Father Lung cancer Mother CVD (cardiovascular disease) Social History Social History Household Members: Children Housing: House Alcohol intake: never Comment: COUNTS CORRECT Patient Tobacco Use Status: Former Tobacco user Years Smoked: 5 Smoked in Last 30 Days: No Use of substances other than those prescribed or required for medical reasons: No Advance Directives: Yes Advance Directives on File: Yes Advance Directives Date on File: 05/16/24 service: No Physical Exam ED Vital Signs: Vital Signs - 24 hr 04/19/25 02:36 Temperature 98.3 F Pulse Rate 87 Respiratory Rate 18 Blood Pressure 144/71 H Oxygen Delivery Method Room Air BMI result Body Mass Index 18.8 Const Other: * Gen: ?Overall well-appearing patient * HEENT: MMM, * CV: RRR, no obvious murmurs appreciated * Resp: ?No wheezing rales rhonchi no stridor moving air well * Abd: ?Bowel sounds are present, minimal epigastric tenderness negative Puente sign * MSK: FROM, strength 5/5 all extremities * Skin: Warm, dry, intact, * Neuro: ?Alert and oriented x3, moving upper and lower extremities symmetrically, no obvious facial asymmetry noted Medical Decision Making Medical Decision Making [facility] Narrative: Considerations for workup as below, patient actually had reassuring physical examination with minimal epigastric tenderness negative Puente's sign to suspect cholecystitis, blood work revealed slight elevation of lipase, has been slightly elevated in her in the past, no risk factors for pancreatitis, the rest of the exam is benign nothing to suspect either SBO, or diverticulitis, I have reviewed her prior images CTs did not reveal any evidence for AAA, she has L1 compression fracture on MRI, and has had ER visits for similar symptoms, reassuringly she was given ondansetron, able to tolerate p.o., we will discharge home with symptomatic control. Her son is with her. Differential Diagnosis Differential Diagnoses: The differential diagnosis associated with the presentation includes UTI, cholecystitis, SBO, volvulus, pancreatitis, gastritis, dehydration Admission/Observation Consideration of admission/observation: Escalation of care including admission/observation considered Lab Data 04/19/25 03:17 04/19/25 03:17 Labs: Lab Results 04/19/25 04/19/25 Range/Units 03:17 05:57 WBC 9.2 (4.8-10.8) X10*3/uL RBC 4.31 (4.20-5.50) X10*6/uL Hgb 13.0 (12.0-16.0) g/dl Hct 37.3 (37.0-47.0) % MCV 86.5 (80.0-98.0) fL MCH 30.2 (27.0-33.0) pg MCHC 34.9 (31.0-35.0) g/dl RDW 13.7 (11.0-16.0) % Plt Count 201 (160-400) X10*3/uL MPV 10.2 (9.4-12.3) fL Immature Gran % (Auto) 0.3 (0.0-0.4) % Neut % (Auto) 85.6 H (45-73) % Lymph % (Auto) 7.0 L (20-40) % [place] % (Auto) 6.2 (2-11) % Eos % (Auto) 0.7 (0-4) % Baso % (Auto) 0.2 (0-2) % Lymph # (Auto) 0.6 L (1.2-4.9) X10*3/uL [place] # (Auto) 0.6 (0.1-1.2) X10*3/uL Eos # (Auto) 0.1 (0.0-0.4) X10*3/uL Baso # (Auto) 0.0 (0.0-0.2) X10*3/uL Abs Immat Gran (auto) 0.03 (0.00-0.03) X10*3/uL Absolute Neuts (auto) 7.9 (2.0-8.3) x10*3/uL Absolute Nucleated RBC 0.000 (0.0-0.012) X10*3/uL Nucleated RBC % (auto) 0.0 (0.0-0.2) /100WBC Sodium 136 (135-145) mmol/L Potassium 3.8 (3.3-5.1) mmol/L Chloride 103 (96-108) mmol/L Carbon Dioxide 25 (22-29) mmol/L Anion Gap 12 (12-20) BUN 11 (9-16) mg/dL Creatinine 0.53 (0.5-1.4) mg/dL Estim Creat Clear Calc 55.4 Estimated GFR > 60 Random Glucose 113 (60-115) mg/dL Calcium 8.6 (8.4-10.2) mg/dL Total Bilirubin 0.2 (0.0-1.0) mg/dL Direct Bilirubin < 0.2 (0.0-0.5) mg/dL AST 24 (5-31) U/L ALT 8 (0-31) U/L Alkaline Phosphatase 63 (39-117) U/L Total Protein 6.5 (6.5-8.0) g/dL Albumin 3.7 (3.5-5.0) g/dL Lipase 333 H (8-78) U/L Urine Color Yellow Urine Appearance Clear Urine pH 5.5 (5.0-9.0) Ur Specific [place] 1.020 (1.005-1.025) Urine Protein 30 (1+) H (Neg-Trace) mg/dL Urine Glucose (UA) Negative (Negative) mg/dL Urine Ketones Negative (Negative) mg/dL Urine Blood Negative (Negative) Urine Nitrite Negative (Negative) Ur Leukocyte Esterase Negative (Negative) Urine RBC 0-2 (0-2) /HPF Urine WBC 0-5 (0-5) /HPF Ur Squamous Epith Cells 0-2 (0-2) /HPF Urine Bacteria None Seen (None Seen) Hyaline Casts 0-2 (0-2) /LPF Medications Administered Discontinued Medications Generic Name Dose Route Start Last Admin Trade Name Freq PRN Reason Stop Dose Admin Ondansetron HCl 4 mg 04/19/25 03:15 04/19/25 03:20 Ondansetron Hcl 4 Mg/2 Ml Vial IVPUSH 04/19/25 03:16 4 mg ONCE ONE Administration Discharge Plan Discharge Clinical Impression: Diarrhea of presumed infectious origin Nausea & vomiting Qualifiers: Vomiting type: unspecified Qualified Code(s): R11.2 - Nausea with vomiting, unspecified Patient Disposition: Home, Self-Care Additional Instructions: Please use Carafate for the next 1 week, Zofran as needed for nausea and vomiting, your blood work has been reassuring, you are not dehydrated, he will have colonoscopy in 2 weeks, I have reviewed your prior MRIs and CTs that you had in the past he had had similar symptoms, Carafate we will hopefully allow you to eat and drink without irritation to his stomach, the diarrhea itself may not resolve right away just make sure to stay out of the heat and keep up with fluid losses. Follow up with the PCP worsening issues concerns come back to the ER Prescriptions: New sucralfate [Carafate] 100 mg/mL suspension 5 ml PO QID Qty: 300 0RF Rx Instructions: swish in mouth and swallow; use after food/drink ondansetron 4 mg tablet,disintegrating 4 mg PO Q8H PRN (Reason: nausea and vomiting) Qty: 4 0RF No Action calcium citrate-vitamin D3 315 mg-5 mcg (200 unit) tablet 1 tab PO DAILY 30 Days Qty: 90 3RF cholecalciferol (vitamin D3) [Vitamin D3] 25 mcg (1,000 unit) capsule 25 mcg PO DAILY Qty: 90 1RF paroxetine HCl 10 mg tablet 10 mg PO QAM Readi-Cat 2 2 % (w/v) Suspension 450 ml PO BID Qty: 900 0RF Rx Instructions: Take 225 mL Q 30 minutes, start 2 hours before the scan. cranberry fruit 400 mg capsule 400 mg PO DAILY Rx Instructions: administer with a meal docusate sodium [Colace] 100 mg capsule 100 mg PO DAILY estradiol 0.01 % (0.1 mg/gram) cream 1 g vaginal 2XW omeprazole 20 mg capsule,delayed release(DR/EC) 20 mg PO DAILY PRN (Reason: Acid Reflux) albuterol sulfate [Ventolin HFA] 90 mcg/actuation HFA aerosol inhaler 1 inh inhalation QID Print Language: Congolese
[2025-04-19] MEDS: Magnesium Hydrox/Alum Hydrox 30 ML ORAL.SUSP 15 ML PO (08:02)
[2025-04-19] MEDS: Ketorolac Tromethamine 15 MG/ML VIAL IVPUSH (08:02)
[2025-04-19] MEDS: Lidocaine HCl Viscous 2 % 15 ML SOLUTION PO (08:02)
[2025-04-19 08:08] VITALS: BP 143/81; PULSE 75; RESP 18; TEMP 36.7; O2SAT 95
[2025-04-19 08:54] VITALS: BP 143/81; PULSE 75; RESP 18; TEMP 36.7; O2SAT 95
== END 2025-04-19 08:56 | disposition home or self-care (01) ==
PROVIDERS: Emergency Provider Emergency Medicine; PCP Internal Medicine
DX: R19.7 Diarrhea, unspecified (principal); R11.2 Nausea with vomiting, unspecified
CPT/HCPCS: 36415; 80048; 80076; 81001; 83690; 85025; 96374; 96375; 99284; 99285; J1885; J2405

== ENCOUNTER 2025-04-23 15:00 | Outpatient (REF) | payer MEDICARE, SELFPAY ==
[2025-04-23 15:17] LABS: Blood Urea Nitrogen 11 mg/dL (9-16); Estimated Glomerular Filt Rate > 60
--- OUTSIDE RECORDS SUMMARY | 2025-04-23 17:40 | XMS_ITS | Patient Health Record ---
Author Organization Kendell Vaughn MD Address [address] [place] [phone] Care Team Providers Care Cathode Washer Name Role Phone Kendell Vaughn Primary Care Provider [phone] Allergies Allergen (clinical drug ingredient) Drug/Non Drug Allergy documented on EMR Reaction Allergy Type Onset Date Status codeine Codeine Sulfate gi upset Drug Allergy A ctive sulfamethoxazole / trimethoprim Bactrim DS heart palpitations Drug Allergy Active erythromycin erythromycin (uncoded) gi upset Allergy Active Results Component Value Reference Range Notes UA ClnCatch+Micro w/rflx Cul t Reviewed date:02/24/2025 09:53:03 AM Interpretation: Performing Lab:[facility], [address] [place] [phone] Notes/Report: Urine, Clean Catch Color Urine Yellow Appearance Urine Turbid PH 8.0 5.0-9.0 Glucose Urine UA Negative Negative mg/dL Urine Blood Negative Negative Specific [place] - Urine 1.015 1.005-1.025 Urine Protein Negative Neg-Trace mg/dL Urine Ketones Negative Negative mg/dL Nitrite Urine Negative Negative Leukocyte Esterase Urine Large (3+) Negative RBC Urine 0-2 0-2 /HPF WBC Urine 0-5 0-5 /HPF Squamous Epithelial Cell Urine 6-10 0-2 /HPF Bacteria Urine None Seen None Seen Hyaline Casts Urine 0-2 0-2 /LPF Blood Urea Nitrogen Reviewed date:04/23/2025 05:22:10 PM Interpretation: Performing Lab:[facility], [address] [place] [phone] Notes/Report: Blood Urea Nitrogen 11 9-16 mg/dL Creatinine Reviewed date:04/23/2025 05:25:36 PM Interpretation: Performing Lab:[facility], [address] [place] [phone] Notes/Report: Creatinine 0.59 0.5-1.4 mg/dL Estimated Glomerular Filt Rate > 60 Chronic Kidney Disease: Estimated GFR < 60 mL/min/1.73m2 Severe Kidney Disease: Estimated GFR < 15 mL/min/1.73m2 Complete Blood Count Auto Di ff Reviewed date:08/27/2024 06:47:49 PM Interpretation: Performing Lab:[facility], [address] [place] [phone] Notes/Report: White Blood Count 5.2 4.8-10.8 X10*3/uL [...] NRBC Abs Auto 0.000 0.0-0.012 X10*3/uL Comprehensive [place]. Panel Fa st Reviewed date:08/28/2024 09:26:45 PM Interpretation: Performing Lab:[facility], [address] [place] [phone] Notes/Report: Sodium 139 135-145 mmol/L Potassium 4.2 3.3-5.1 mmol/L Chloride 103 96-108 mmol/L Carbon Dioxide 30 22-29 mmol/L Anion Gap 10 12-20 Blood Urea Nitrogen 17 9-16 mg/dL Creatinine 0.69 0.5-1.4 mg/dL Estimated Glomerular Filt Rate > 60 NOTE: For -Luxembourger individuals, multiply the result by 1.210. Chronic [...] PROFILE Reviewed date:08/27/2024 06:41:00 PM Interpretation: Performing Lab:[facility], [address] [place] [phone] Notes/Report: Iron 123 30-160 mcg/dL Total Iron Binding Capacity 284 228-428 mcg/dL Percent Iron Saturation 43 15-50 % Unsaturated Iron Binding 161 Lipid Panel Reviewed date:08/27/2024 06:41:40 PM Interpretation: Performing Lab:[facility], [address] [place] [phone] Notes/Report: Triglycerides 60 <150 mg/dL Desirable Triglyceride: [...] t Reviewed date:08/28/2024 09:35:22 PM Interpretation: Performing Lab:[facility], [address] [place] [phone] Notes/Report: Urine, Clean Catch Color Urine Yellow Appearance Urine Clear PH 7.5 5.0-9.0 Glucose Urine UA Negative Negative mg/dL Urine Blood Negative Negative Specific [place] - Urine 1.015 1.005-1.025 Urine Protein Negative [...] t Reviewed date:02/10/2025 09:39:40 AM Interpretation: Performing Lab:[facility], [address] [place] [phone] Notes/Report: Urine, Clean Catch Color Urine Yellow Appearance Urine Cloudy PH 5.5 5.0-9.0 Glucose Urine UA Negative Negative mg/dL Urine Blood Large (3+) Negative Specific [place] - Urine 1.010 1.005-1.025 Urine Protein 30 (1+) Neg-Trace mg/dL Urine Ketones Negative Negative mg/dL Nitrite Urine Negative Negative Leukocyte Esterase Urine Large (3+) Negative RBC Urine >20 0-2 /HPF WBC Urine >50 0-5 /HPF Squamous Epithelial Cell Urine 0-2 0-2 /HPF Bacteria Urine Trace None Seen Hyaline Casts Urine 0-2 0-2 /LPF Urinalysis and Microscopic Reviewed date:03/05/2025 04:52:46 PM Interpretation: Performing Lab:[facility], [address] [place] [phone] Notes/Report: Color Urine Yellow Appearance Urine Clear PH 6.5 5.0-9.0 Glucose Urine UA Negative Negative mg/dL Urine Blood Negative Negative Specific [place] - Urine <= 1.005 1.005-1.025 Urine Protein Negative Neg-Trace mg/dL Urine Ketones Negative Negative mg/dL Nitrite Urine Negative Negative Leukocyte Esterase Urine Large (3+) Negative RBC Urine 0-2 0-2 /HPF WBC Urine 11-20 0-5 /HPF Squamous Epithelial Cell Urine 0-2 0-2 /HPF Bacteria Urine None Seen None Seen Hyaline Casts Urine 0-2 0-2 /LPF Urine Culture Reviewed date:03/06/2025 03:39:20 PM Interpretation: Performing Lab:[facility], [address] [place] [phone] Notes/Report: Urine Culture Report Result Urine Culture < 10,000 cfu/ml XR sacroiliac joint min 3V Reviewed date:03/19/2025 12:25:53 PM Interpretation: Performing Lab: Notes/Report: [address] [address] XRay Report Signed Patient: Tiffanie Friedman MR#: [id number] : 1945 Acct:[id number] Age/Sex: 79 / F ADM Date: 03/19/25 Loc: HO.XRAY Attending Dr: Kendell Vaughn MD Ordering Physician: Kendell Vaughn MD Date of Service: 03/19/25 Procedure(s): XR sacroiliac joint min 3V Accession Number(s): [id number] cc: Kendell Vaughn MD EXAMINATION: XR SACROILIAC [...] 03/19/25 1052 DD/ 1025 TD/TT: 03/19/25 1040 Medical Equipment Technician: [place] [address] XRay Report Signed Patient: Tiffanie Friedman MR#: [id number] : 1945 Acct:[id number] Age/Sex: 79 / F ADM Date: 03/19/25 Loc: HO.XRAY Attending Dr: Kendell Vaughn MD Ordering Physician: Kendell Vaughn MD Date of Service: 03/19/25 Procedure(s): XR sacroiliac joint min 3V Accession Number(s): [id number] cc: Kendell Vaughn MD EXAMINATION: XR SACROILIAC [...] 03/19/25 1052 DD/ 1025 TD/TT: 03/19/25 1040 Medical Equipment Technician: XR hip LT min 2V Reviewed date:03/19/2025 12:26:24 PM Interpretation: Performing Lab: Notes/Report: [address] [address] XRay Report Signed Patient: Tiffanie Friedman MR#: [id number] : 1945 Acct:[id number] Age/Sex: 79 / F ADM Date: 03/19/25 Loc: HO.XRAY Attending Dr: Kendell Vaughn MD Ordering Physician: Kendell Vaughn MD Date of Service: 03/19/25 Procedure(s): XR hip LT min 2V Accession Number(s): [id number] cc: Kendell Vaughn MD EXAMINATION: XR HIP, [...] 03/19/25 1050 DD/ 1004 TD/TT: 03/19/25 1040 Medical Equipment Technician: [place] [address] XRay Report Signed Patient: Tiffanie Friedman MR#: [id number] : 1945 Acct:[id number] Age/Sex: 79 / F ADM Date: 03/19/25 Loc: HO.XRAY Attending Dr: Kendell Vaughn MD Ordering Physician: Kendell Vaughn MD Date of Service: 03/19/25 Procedure(s): XR hip LT min 2V Accession Number(s): [id number] cc: Kendell Vaughn MD EXAMINATION: XR HIP, [...] 03/19/25 1050 DD/ 1004 TD/TT: 03/19/25 1040 Medical Equipment Technician: MEENU ClSwapnaatch+Micro w/rflx Cul t Reviewed date:03/26/2025 02:28:32 PM Interpretation: Performing Lab:[facility], [address] [place] [phone] Notes/Report: Urine, Clean Catch Color Urine Yellow Appearance Urine Clear PH 6.0 5.0-9.0 Glucose Urine UA Negative Negative mg/dL Urine Blood Trace Negative Specific [place] - Urine 1.015 1.005-1.025 Urine Protein Negative [...] date:03/12/2025 05:04:38 PM Interpretation: Performing Lab: Notes/Report: [address] [address] XRay Report Signed Patient: Tiffanie Friedman MR#: [id number] : 1945 Acct:[id number] Age/Sex: 79 / F ADM Date: 03/10/25 Loc: HO.XRAY Attending Dr: Kendell Vaughn MD Ordering Physician: Kendell Vaughn MD Date of Service: 03/10/25 Procedure(s): XR lumbar spine 2-3V Accession Number(s): [id number] cc: Kendell Vaughn MD EXAMINATION: XR LUMBOSACRAL [...] 03/12/25 1348 DD/ 1348 TD/TT: 03/10/25 1358 Medical Equipment Technician: [place] [address] XRay Report Signed Patient: Tiffanie Friedman MR#: [id number] : 1945 Acct:[id number] Age/Sex: 79 / F ADM Date: 03/10/25 Loc: HO.XRAY Attending Dr: Kendell Vaughn MD Ordering Physician: Kendell Vaughn MD Date of Service: 03/10/25 Procedure(s): XR lum bar spine 2-3V Accession Number(s): [id number] cc: Kendell Vaughn MD EXAMINATION: XR LUMBOSACRAL [...] 03/12/25 1348 DD/ 1348 TD/TT: 03/10/25 1358 Medical Equipment Technician: Complete Blood Count no Diff Reviewed date:05/26/2024 06:21:07 PM Interpretation: Performing Lab:[facility], [address] [place] [phone] Notes/Report: White Blood Count 6.5 4.8-10.8 X10*3/uL [...] catalan Reviewed date:05/28/2024 02:05:35 PM Interpretation: Performing Lab:[facility], [address] [place] [phone] Notes/Report: LEUKEMIA/LYMPHOMA [id number] BLOOD LLE Interpretation See Note See repor t from [employer] in the EMR. Comprehensive Met. Panel Reviewed date:05/26/2024 06:11:43 PM Interpretation: Performing Lab:[facility], [address] [place] [phone] Notes/Report: Sodium 139 135-145 mmol/L Potassium 4.3 [...] Glomerular Filt Rate > 60 NOTE: For -Luxembourger individuals, multiply the result by 1.210. Chronic [...] Ferritin Reviewed date:05/26/2024 06:01:37 PM Interpretation: Performing Lab:[facility], [address] [place] [phone] Notes/Report: Ferritin 61 10-250 ng/mL Lactate Dehydrogenase Reviewed date:05/26/2024 05:57:02 PM Interpretation: Performing Lab:[facility], [address] [place] [phone] Notes/Report: Lactate Dehydrogenase 209 122-220 U/L Vitamin B12 and Folate Reviewed date:05/26/2024 06:10:00 PM Interpretation: Performing Lab:[facility], [address] [place] [phone] Notes/Report: Vitamin B12 1459 200-900 pg/mL NORMAL 200-900 PG/ML INDETERMINATE 160-199 PG/ML DEFICIENT < 160 PG/ML Folate 13.4 > or = 4.0 ng/mL Reference Values: > or = 4.0 ng/mL < 4.0 ng/mL suggests folate deficiency Methotrexate, aminopterin and folinic acid (leucovorin) are chemotherapeutic agents whose molecular structures are similar to folate; therefore, the [employer] folate assay cannot be used for patients using these drugs. Thyroid Stimulating Hormone Reviewed date:05/26/2024 05:56:53 PM Interpretation: Performing Lab:[facility], [address] [place] [phone] Notes/Report: Thyroid Stimulating Hormone 0.95 0.32-4.0 uIU/mL TSH 3rd Generation ([employer]) MM tomosynthesis screening B I Reviewed date:08/25/2024 11:03:33 AM Interpretation: Performing Lab: Notes/Report: [facility] [address] [place] [address] Mammography Report Signed Patient: Tiffanie Friedman MR#: [id number] : 1945 Acct:[id number] Age/Sex: 78 / F ADM Date: 08/07/24 Loc: HO.MAMMO Attending Dr: Kendell Vaughn MD Ordering Physician: Kendell Vaughn MD Results: 1Ne gative Date of Service: 08/07/24 Follow Up: 1 Year From Orig inal Mammogram Procedure(s): MM tomosynthesis screening BI Accession Number(s): [id number] cc: Kendell Vaughn MD EXAMINATION: MM SCREENING [...] 08/19/24 1749 DD/ 1130 TD/TT: 08/07/24 1156 Medical Equipment Technician: [facility] [address] [place] [address] Mammography Report Signed Patient: Tiffanie Friedman MR#: [id number] : 1945 Acct:[id number] Age/Sex: 78 / F ADM Date: 08/07/24 Loc: HO.MAMMO Attending Dr: Kendell Vaughn MD Ordering Physician: Kendell Vaughn MD Results: 1Ne gative Date of Service: 08/07/24 Follow Up: 1 Year From Orig ina Mammogram Procedure(s): MM tomosynthesis screening BI Accession Number(s): [id number] cc: Kendell Vaughn MD EXAMINATION: MM SCREENING [...] 08/19/24 1749 DD/ 1130 TD/TT: 08/07/24 1156 Medical Equipment Technician: Urine Culture Reviewed date:08/27/2024 06:47:18 PM Interpretation: Performing Lab:[facility], [address] [place] [phone] Notes/Report: Urine Culture Report Result Urine Culture < 10,000 cfu/ml Complete Blood Count Auto Di ff Reviewed date:11/24/2024 05:38:48 PM Interpretation: Performing Lab:[facility], [address] [place] [phone] Notes/Report: White Blood Count 6.7 4.8-10.8 X10*3/uL [...] Panel Reviewed date:11/24/2024 05:24:22 PM Interpretation: Performing Lab:[facility], [address] [place] [phone] Notes/Report: Sodium 140 135-145 mmol/L Potassium 4.3 [...] Antigen Reviewed date:11/24/2024 05:31:30 PM Interpretation: Performing Lab:[facility], [address] [place] [phone] Notes/Report: Carcinoembryonic Antigen 4.40 CEA Reference Range: 93.4% Non-Smokers = 0.0-3.0 ng/mL 95.6% Smokers = 0.0-5.0 ng/mL CEA Methodology: 2U Alinity i Chemiluminescent Microparticle Immunoassay (CMIA) CEA testing can have significant value in monitoring of patients with diagnosed malignancies in whom changing concentrations of CEA are observed. Values obtained with different assay methods cannot be used interchangeably. CT abdomen pelvis w con Reviewed date:12/06/2024 12:28:50 PM Interpretation: Performing Lab: Notes/Report: [address] [address] [address] Scan Report Signed Patient: Tiffanie Friedman MR#: [id number] : 1945 Acct:[id number] Age/Sex: 79 / F ADM Date: 12/05/24 Loc: HO.CT Attending Dr: Mckayla Wang MD Ordering Physician: Mckayla Wang MD Date of Service: 12/05/24 Procedure(s): CT abdomen pelvis w IV con Accession Number(s): [id number] cc: Kendell Vaughn MD; Mckayla Wang MD Report Number: [id number]: Total DLP = 186.00 mGy-cm CLINICAL HISTORY: Colon cancer, surveillance CT abdomen and pelvis with contrast Comparison: CT/TX/SR - CT ABDOMEN PELVIS WO IV CON [...] 12/05/24 1524 DD/ 1523 TD/TT: 12/05/24 1523 Medical Equipment Technician: [place] [address] CT Scan Report Signed Patient: Tiffanie Friedman MR#: [id number] : 1945 Acct:[id number] Age/Sex: 79 / F ADM Date: 12/05/24 Loc: HO.CT Attending Dr: Mckayla Wang MD Ordering Physician: Mckayla Wang MD Date of Service: 12/05/24 Procedure(s): CT abdomen pelvis w IV con Accession Number(s): [id number] cc: Kendell Vaughn MD; Mckayla Wang MD Report Number: [id number]: Total DLP = 186.00 mGy-cm CLINICAL HISTORY: Co joseph cancer, surveillance CT abdomen and pelvi s with contrast Comparison: CT/TX/SR - CT ABDOMEN PELVIS WO IV CON [...] 12/05/24 1524 DD/ 1523 TD/TT: 12/05/24 1523 Medical Equipment Technician: Urine Culture Reviewed date:02/11/2025 02:05:42 PM Interpretation: Performing Lab:[address] [phone] Notes/Report: O:ESCCOL Escherichia coli Urine Culture Quant Urine Culture 50,000 to 100,000 cfu/mL Ampicillin >=32 Cefazolin (Urine) 8 Cefepime <=0.12 Ceftriaxone <=0.25 Ciprofloxacin <=0.06 Gentamicin >=16 Nitrofurantoin <=16 Trimethoprim/Sulfametho xazole >=320 Urine Culture Reviewed date:02/26/2025 06:18:54 PM Interpretation: Performing Lab:[address] [address] Notes/Report: Urine Culture Report Result Urine Culture 10,000 to 50,000 cfu/ml Urine Culture Mixed bacterial travis a characteristic of Urine Culture urogenital contamination. Urine Culture Reviewed date:03/19/2025 12:28:52 PM Interpretation: Performing Lab:[address] [address] Notes/Report: O:ESCCOL Escherichia coli Urine Culture Quant Urine Culture > 100,000 cfu/mL Ampicillin >=32 Cefazolin (Urine) 8 Cefepime <=0.12 Ceftriaxone <=0.25 Ciprofloxacin <=0.06 Gentamicin >=16 Nitrofurantoin <=16 Trimethoprim/Sulfametho xazole >=320 NM bone scan whole body Reviewed date:03/19/2025 12:29:02 PM Interpretation:03-19-2025 Performing Lab: Notes/Report: [address] [address] Nuclear Medicine Report Signed Patient: Tiffanie Friedman MR#: [id number] : 1945 Acct:[id number] Age/Sex: 79 / F ADM Date: 03/17/25 Loc: SULEMA Attending Dr: Kendell Vaughn MD Ordering Physician: Kendell Vaughn MD Date of Service: 03/17/25 Procedure(s): NM bone scan whole body Accession Number(s): [id number] cc: Kendell Vaughn MD EXAMINATION: NM BONE [...] 03/17/25 1502 DD/ 1000 TD/TT: 03/17/25 1345 Medical Equipment Technician: [place] [address] Nuclear Medicine Report Signed Patient: Tiffanie Friedman MR#: [id number] : 1945 Acct:[id number] Age/Sex: 79 / F ADM Date: 03/17/25 Loc: HO.OMEGA Attending Dr: Kendell Vaughn MD Ordering Physician: Kendell Vaughn MD Date of Service: 03/17/25 Procedure(s): NM bon e scan whole body Accession Number(s): [id number] cc: Kendell Vaughn MD EXAMINATION: NM BONE [...] 03/17/25 1502 DD/ 1000 TD/TT: 03/17/25 1345 Medical Equipment Technician: Urine Culture Reviewed date:03/27/2025 12:49:58 PM Interpretation: Performing Lab:[facility], [address] [place] [phone] Notes/Report: Urine Culture Report Result Urine Culture < 10,000 cfu/ml MR lumbar spine wo con Reviewed date:04/02/2025 12:37:47 PM Interpretation: Performing Lab: Notes/Report: [address] [address] Magnetic Resonance Report Signed Patient: Tiffanie Friedman MR#: [id number] : 1945 Acct:[id number] Age/Sex: 79 / F ADM Date: 04/01/25 Loc: HO.MRI Attending Dr: Kendell Vaughn MD Ordering Physician: Kendell Vaughn MD Date of Service: 04/01/25 Procedure(s): MR lumbar spine wo con Accession Number(s): [id number] cc: Kendell Vaughn MD EXAMINATION: MR LUMBAR [...] signed by Seng Cornejo MD in [place]> 04/02/2518 DD/ 25 TD/TT: 04/01/25 1848 Medical Equipment Technician: [place] [address] Magnetic Resonance Report Signed Patient: Tiffanie Friedman MR#: [id number] : 1945 Acct:[id number] Age/Sex: 79 / F ADM Date: 04/01/25 Loc: HO.MRI Attending Dr: Kendell Vaughn MD Ordering Physician: Kendell Vaughn MD Date of Service: 04/01/25 Procedure(s): MR lum bar spine wo con Accession Number(s): [id number] cc: Kendell Vaughn MD EXAMINATION: MR LUMBAR [...] at L3-4 encroaching the neural elements. Electronically josh d by: Seng Kang MD 04/02/2025 07:18 AM EDT RP Dictated By: Seng Casillas MD Signed By: <Electronically signed by Seng Cornejo MD in [place]> 04/02/2518 DD/ 25 TD/TT: 04/01/25 184 Medical Equipment Technician: MEENU Martínez+Palomo w/cheyx Cul t Reviewed date:04/20/2025 12:45:38 PM Interpretation: Performing Lab:[facility], [address] [place] [phone] Notes/Report: Urine, Clean Catch Color Urine Yellow Appearance Urine Clear PH 5.5 5.0-9.0 Glucose Urine UA Negative Negative mg/dL Urine Blood Negative Negative Specific [place] - Urine 1.020 1.005-1.025 Urine Protein 30 (1+) Neg-Trace mg/dL Urine Ketones Negative Negative mg/dL Nitrite Urine Negative Negative Leukocyte Esterase Urine Negative Negative RBC Urine 0-2 0-2 /HPF WBC [...] End Date Status Vitamin C 500 MG as directed Orally Active tiZANidine HCl 2 MG 1 tablet as needed Orally Three times a day Not-Rustam ing Carafate 1 GM 1 tablet on an empty stomach Orally Twice a day Active Ibuprofen 800 MG 1 TABLET ORALLY [...] DAY IN THE MORNING for 90 Active Cranberry 405 MG 1 capsule with meals Orally Twice a day Active Stool Softener 100 MG 1 tablet as needed Orally three times a day Active Ativan 0.5 MG 1 tablet as needed Orally Twice a day 06/15/2015 Not-Taking Albuterol Sulfate HFA 108 (90 Base) MCG/ACT 2 puff as needed Inhalation every 4 hrs 02/16/2023 Active Methenamine Hippurate 1 GM 1 tablet Orally Twice a day for 10 day(s) Not-Taking Immunizations Vaccine Route Administration Date Status Comme nts Flu Vaccine IM Intramuscular 07/11/2011 Administered Flu Vaccine IM Intramuscular 07/29/2012 Administered PPSV23 (Pnemovax) Unknown 03/07/2009 Administered Prevnar 13 IM Intramuscular 03/07/2013 Administered Flu Vaccine IM Intramuscular 07/22/2013 Administered Flu Vaccine Unknown 08/27/2014 Administered received at [facility] PPSV23 (Pnemovax) Unknown 08/27/2014 Administered recei erika at [facility] Fluarix Quadrivalent IM Intramuscular 08/09/2015 Administe red Fluarix Quadrivalent IM Intramuscular 08/09/2015 Administe red Fluarix Quadrivalent IM Intramuscular 07/27/2016 Administe red Fluarix Quadrivalent IM Intramuscular 07/30/2017 Administe red TDaP Unknown 01/14/2018 Administered pt was given the vaccine at [facility] in [place] on [employer] Fluarix Quadrivalent IM Intramuscular 07/29/2018 Administe red Fluarix Quadrivalent Unknown 07/11/2019 Administered CV S Shingrix Unknown 07/11/2019 Administered [facility] PPSV23 (Pnemovax) IM Intramuscular 12/15/2019 Administered Shingrix IM Intramuscular 10/20/2019 Administered Given at [facility] [employer]. Shingles Unknown 10/20/2019 Administered Influenza High Dose [...] Problem Status W/U Status Risk Notes Problem 33993670 Age-related osteoporosis without current pathological fracture (M81.0) Active confirmed Problem 691417843 Neuropathy (G62.9) Active confirmed Problem 26268518 Restless leg syn drome (G25.81) Active confirmed Problem 582722980 Reflux esophagit is (K21.00) Active confirmed Problem 07046022 Vitamin D defici ency (E55.9) Active confirmed Problem 48024064 Anxiety (F41.9) Active confirmed Problem Dysphagia (24012336) Dysphagia (R13.10) Active confirmed Problem 062112320 Malignant neopla sm of hepatic flexure (C18.3) Active confirmed Problem 376339500 Other headache syndrome (G44.89) Active confirmed Problem 98803746 Irritable bowel syndrome without diarrhea (K58.9) Active confirmed Problem Disorder of lumbar disc (860745023) Lumbar disc disease (M51.9) Active confirmed Problem 068845169 Gastroesophageal reflux disease without esophagitis (K21.9) Active confirmed Problem 76760532 Osteoporosis (M81.0) Active confirmed Problem 271789385 Abnormal mammogr am of left breast (R92.8) Active confirmed Problem 567599143 PAC (premature a trial contraction) (I49.1) Active confirmed Problem 26814740 Oropharyngeal dysphagia (R13.12) Active confirmed Problem 47526477 Iron deficiency anemia, unspecified iron deficiency anemia type (D50.9) Active confirmed Problem 51442560208649 Pharyngeal dysph agia (R13.13) Active confirmed Problem 586496859 Vaginal bleeding (N93.9) Active confirmed Problem 74117187 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) Active confirmed Problem 867625786 Pure hypercholesterolemia (E78.00) Active confirmed Problem 242192434 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) Active confirmed Problem 32651403 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) Active confirme d Problem Plain X-ray of chest abnormal (finding) (7839443368) Abnormal chest xray (R93.89) Active confirmed Problem 94407273 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 confirmed Problem 547205033 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) Active confirmed Problem 71461751 Senile cataract, unspecified age-related cataract type, unspecified laterality (H25.9) Active confirmed Vital Signs Blood pressure diastolic 56 mm Hg 04/23/2025 Height 59.5 in 04/23/2025 Blood pressure systolic 88 mm Hg 04/23/2025 Weight 92 lbs 04/23/2025 BMI 18.27 kg/m2 04/23/2025 Encounters Encounter Location Date Provider Diagnosis Kendell Vaughn MD [address] [place], [place] [id number] 02/23/2025 Kendell Vaughn UTI (urinary tract infection) N39.0 Kendell Vaughn MD [address] [place] [id number] 04/23/2025 Kendell Franciscoardier Diarrhea R19.7 ; Abd ominal pain R10.9 and Blood tests prior to treatment or procedure Z01.812 Kendell Vaughn MD [address] [place] [id number] 07/04/2024 Kendell Vaughn Palpitations R00.2 a nd Pulmonary fibrosis J84.10 Kendell Vaughn MD [address] [place] [id number] 07/31/2024 Kednell Vaughn Palpitations R00.2 ; 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 and Encounter for immunization Z23 Kendell Vaughn MD [address] [place] [id number] 08/26/2024 Kendell Vaughn Vitamin D deficiency E55.9 ; Pure hypercholesterolemia E78.00 and Iron deficiency anemia, unspecified iron deficiency anemia type D50.9 Kendell Vaughn MD [address] [place] [id number] 09/05/2024 Kendell Vaughn Osteoporosis M81.0 ; Pure hypercholesterolemia E78.00 ; Vitamin D deficiency E55.9 ; Reflux esophagitis K21.00 and Depression screening Z13.31 Kendell Vaughn MD [address] [address] [place] [address] [id number] 02/09/2025 Kendell Vaughn UTI (urinary tract infection) N39.0 Kendell Vaughn MD [address] [place] [address] [id number] 03/05/2025 Kendell Vaughn UTI (urinary tract infection) N39.0 Kendell Vaughn MD [address] [place] [address] [id number] 03/09/2025 Kendell Vaughn Compression fracture of fifth lumbar vertebra S32.050A Kendell Vaughn MD [address] [place] [address] [id number] 03/19/2025 Kendell Vaughn Compression fracture of first lumbar vertebra, with routine healing, subsequent encounter S32.010D and UTI symptoms R39.9 Kendell Vaguhn MD [address] [place] [address] [id number] 03/26/2025 Kendell Vaughn Lumbar disc disease M51.9 and After-treatment Z51.89 Kendell Vaughn MD [address] [place] [address] [id number] 04/07/2025 Kendell Vaughn Lumbar disc disease M51.9 and Near syncope R55 Kendell Vaughn MD [address] [place] [address] [id number] 09/01/2024 Kendell Vaughn Osteoporosis M81.0 Kendell Vaughn MD [address] [place] [address] [id number] 03/06/2025 Kendell Vaughn MD [address] [place] [address] [id number] 03/09/2025 Kendell Vaughn MD [address] [place] [address] [id number] 03/10/2025 Kendell Vaughn Lumbar back pain M54 .50 Kendell Vaughn MD [address] [place] [address] [id number] 04/20/2025 Kendell Vaughn Assessments Encounter Date Diagnosis (ICD Code) Assessment Notes Treatment Notes Treatment Clinical Notes Section Notes 02/23/2025 UTI (urinary tract infection) (ICD-10 - N39.0) 04/23/2025 Diarrhea (ICD-10 - R19.7) order faxed to [facility] dept , pending diagnostic testing 04/23/2025 Abdominal pain (ICD- 10 - R10.9) pending diagnostic testing 07/04/2024 Palpitations (ICD-10 - R00.2) am concerned [...] any disorders. no uti/ order faxed to [facility] dept , pending diagnostic testing 03/19/2025 [...] to dr thompson/ MRI orders faxed to [facility] dept 04/07/2025 Lumbar disc disease (ICD-10 - M51.9) referral to dr thompson/Referra l is already enterted in system and info faxed to Dr. Thompson offce. 04/07/2025 Near syncope (ICD-10 - R55) will [...] After-treatment (ICD -10 - Z51.89) pending labs 04/23/2025 Blood tests prior to treatment or procedure (ICD-10 - Z01.812) 09/05/2024 Reflux esophagitis (ICD-10 - K21.00) 09/05/2024 Depression screening (ICD-10 - Z13.31) negative screen Plan Of Treatment Pending Test Test Name Order Date Electrocardiogram (EKG) 05/28/2015 Electrocardiogram (EKG) 06/15/2016 Electrocardiogram (EKG) 07/04/2024 CLOSTRIDIUM DIFF TOXIN A&B (C DIFF) 04/12 CT ABD & PELVIS WITH CONTRAST 04/23/2025 MRI CERVICAL SPINE NO CONTRAST MRI LUMBAR SPINE NO CONTRAST 03/26/2025 MRI LUMBAR SPINE NO CONTRAST 11/30/2023 NUC WHOLE BODY SCAN BONE 10/19/2023 NUC WHOLE BODY SCAN BONE 11/09/2020 XR CERVICAL SPINE 2-3 VIEWS 06/20/2011 XR CERVICAL SPINE 4+ VIEWS 11/02/2020 XR CHEST 2 VIEW PA & LAT 02/01/2012 XR CHEST 2 VIEW PA & LAT 08/14/2022 XR CHEST 2 VIEW PA & LAT 10/10/2022 BONE DENSITY DEXA 08/09/2021 CA stress test [...] Microscopic 03/26/2025 Next Appt Details Provider Name:Kendell skinnerr, 09/03/2025 07:15:00 AM, [address] [place] [address], [address], [place], [place], [id number], Provider Name:Kendell Cadena ier, 09/10/2025 08:30:00 AM, [address] [place] [address] Drive, [address], [place], [place], [id number], Insurance Providers Payer Name Payer Address Payer Phone Subscriber Number Group Number Insured Name Patient Relationship to Insured Coverage Start Date Coverage End Date MEDICARE [employer] [address] [place] [address] [id number] Tiffanie Catalan Self - patient is the insured [employer] [facility] [address] [place], [place] [id number] 1 Med bell Tiffanie Self - patient is the insured Medical (General) History Medical History History ICD Code colonoscopy 10/03/2013 and 2 005 negative - no further colonoscopies indicated per Dr. Rojo:12/04/23 colonoscopy pending path pap smear - negative (10/20/2013) blood on underwear. had cysto tizanidine is zanaflex Surgical History Surgery Date(Month/Year) Marcio, right fifth toe (Dr. Mcfarlane)
== END 2025-04-23 15:01 | disposition home or self-care (01) ==
LOC: HO.LNP 15:00
PROVIDERS: Visit Provider Internal Medicine
DX: Z01.812 Encounter for preprocedural laboratory examination (principal)
CPT/HCPCS: 82565; 84520

== ENCOUNTER 2025-04-24 07:44 | Outpatient (REF) | payer MEDICARE, SELFPAY ==
[2025-04-24 10:33] LABS: CDiff Gene PCR NEGATIVE (Negative)
== END 2025-04-24 07:45 | disposition home or self-care (01) ==
LOC: HO.LNP 07:44
PROVIDERS: Visit Provider Internal Medicine
DX: R19.7 Diarrhea, unspecified (principal)
CPT/HCPCS: 87493

== ENCOUNTER 2025-05-13 07:17 | Day surgery (SDC) | payer MEDICARE, SELFPAY ==
--- OUTSIDE RECORDS SUMMARY | 2025-01-23 06:49 | XMS_ITS ---
Author Organization Kendell Vaughn MD Address [address] [place] [phone] Care Team Providers Care I&C Technician Name Role Phone Kendell Vaughn Primary Care Provider Allergies Allergen (clinical drug ingredient) Drug/Non Drug Allergy documented on EMR Reaction Allergy Type Onset Date Status codeine Codeine Sulfate gi upset Drug Allergy A ctive Bactrim DS heart palpitations Drug Allergy Active [...] HCl 10 MG TAKE 1 TABLET BY [facility] EVERY DAY IN THE MORNING for 90 [...] Date Provider Diagnosis Kendell Vaughn MD [address] [facility] [address] [place], [place] [phone] 09/05/2024 Kendell Vaughn Osteoporosis M81.0 ; Pure [...] Reason: Provider Name:Kendell rodriguez, 03/05/2025 10:00:00 AM, [address] [place] [address], [phone], Provider Name:Kendell rodriguez, 09/03/2025 07:15:00 AM, [address] [place] [address], [phone], Provider Name:Kendell rodriguez, 09/10/2025 08:30:00 AM, [address] [place] [address], [phone], Progress Notes * Tiffanie MCNAMARA MDOB:12/1944 (79 yo F)Acc No.[id number]:09/05/2024 Patient:?Tiffanie Mcnamara Provider:?Kendell Vaughn MD :1945???Age:79 Y???Sex:Female D ate:09/05/2024 Address:[address] [place], [place] [phone] Subjective: * Chief Complaints: * ???Review labs [...] ?Unsaturated Iron Binding 161 - ug/dL ???Lab:Comprehensive [place]. P john Fast (Order Date - 08/26/2024) [...] mg/dL ?Urine Blood Negative Negative - ?Specific [place] - Urine 1.015 1.005-1.025 - ?Urine Protein [...] organomegaly , no masses palpable.?RECTAL EXAM:?done by gift manager.?FEMALE GENITOURINARY:?done by gift manager.?EXTREMITIES:?no clubbing, cyanosis, or edema.?NEUROLOGIC:?nonfocal, motor strength normal [...] MD Date:?1 Generated for Devorah da silva/Chapito/Erick on:?01/23/2025 06:49 AM EDT History and Physical Notes * HPI (History [...] Total Score: 0 Interpretation and Intervention Depression Scree jorge Findings: Negative Follow-Up for Depression: : review [...] had two or more falls in the year?: No Communication Needs Communication Needs Does [...] palpable b ilaterally RECTAL EXAM: done by gift manager FEMALE GENITOURINARY: done by gift manager ORAL CAVITY: mucosa moist
--- OUTSIDE RECORDS SUMMARY | 2025-01-23 06:49 | XMS_ITS ---
Author Organization [facility] Address [address] [place] [phone] Care Team Providers Care Processes Chemical Design Engineer Name Role Phone Kendell Vaughn MD Primary Care Provider Jono Gamboa [phone] REASON FOR VISIT constipation Encounters Encounter Location Date Provider Diagnosis [facility] [address] [place] [phone] 01/08/2025 Jono Rojo Plan Of Treatment Next Appt Details Provider Name:Jono Rojo , 03/16/2025 10:20:00 AM, [address] [place] [address] , [place], [place], [phone], Progress Notes * EMIR MCNAMARAEDOB:[birth year] (79 yo F)Acc No.[id number]:01/08/2025 Patient:?KRIS MCNAMARA :1945???Age:79 Y???Sex:Female Address:[address] [place] [address], [place] [address] * true * Date:? Generated for Printi rekha/Chapito/eTransmitting on:?01/23/2025 06:49 AM EDT
--- OUTSIDE RECORDS SUMMARY | 2025-01-23 06:49 | XMS_ITS ---
Author Organization Kendell Vaughn MD Address [address] [place] [phone] Care Team Providers Care Fire Sprinkler Apparatus Inspector Name Role Phone Kendell Vaughn Primary Care Provider [phone] REASON FOR VISIT BD orders for 11/05 Encounters Encounter Location Date Provider Diagnosis Kendell Vaughn MD [address] [place] [phone] 09/01/2024 Kendell Vaughn Osteoporosis M81.0 Assessments Encounter Date Diagnosis (ICD Code) Assessment Notes Treatment Notes Treatment Clinical Notes Section Notes 09/01/2024 Osteoporosis (ICD-10 - M81.0) Plan Of Treatment Future Test Test Name Order Date BONE DENSITY DEXA 09/01/2025 Next Appt Details Provider Name:Kendell Cadena ier, 03/05/2025 10:00:00 AM, [address], [place], [phone], Provider Name:Kendell Cadena brodyr, 09/03/2025 07:15:00 AM, [address] [facility], [address], [place], [phone], Provider Name:Kendell Cadena ier, 09/10/2025 08:30:00 AM, [address], [address], [place], [phone], Progress Notes * Tiffanie MCNAMARA MDOB:12/1944 (79 yo F)Acc No.[id number]:09/01/2024 Patient:?Tiffanie Mcnamara :1945???Age:79 Y???Sex:Female Address:[address] [place] [phone] Subjective: * Chief Complaints: * ???BD orders for 11/05 * Medical History:? * Surgical History:? * Hospitalization/Major Diagno stic Procedure:? * Medications:? Objective: Assessment: * Assessment: 1.?Osteoporosis - M81.0? Plan: * Treatment: * Procedure Codes:? * true * Date:? Generated for Devorah da silva/Chapito/eTransmitting on:?01/23/2025 06:49 AM EDT
--- OUTSIDE RECORDS SUMMARY | 2025-01-23 06:50 | XMS_ITS | Patient Health Record ---
Author Organization [facility] Address [address] [place] [address] Care Team Providers Care Tractor Mechanic Name Role Phone Roderick GARCIA, Kendell Primary Care Provider Jono Gamboa Unavailable [phone] Allergies Allergen (clinical drug ingredient) Drug/Non Drug Allergy documented on EMR Reaction Allergy Type Onset Date Status erythromycin Erythromycin Unknown Drug Allergy A ctive Codeine Phosphate Unknown Drug Allergy Active Reason For Referral No Information Medications Medication SIG (Take, Route, Frequency, Duration) [...] IN THE MORNING Oral for 90 Active Immunizations Vaccine Route Administration Date Status Comme nts Influenza Unknown 08/12/2019 Administered Influenza Unknown 08/29/2022 Administered Social History Alcohol Screen Question Answer Notes Did you [...] Never (0 point) Points 1 Interpretation Negative Section Notes: Nonsmoker x 30 yrs; 1 wine a day Nonsmoker x 30 yrs; 1 wine t wice a week Nonsmoker x 30 yrs; 1 wine t wice a week Nonsmoker x 30 yrs; 1 wine t wice a week Nonsmoker x 30 yrs; 1 wine t wice a week Problems Problem Type SNOMED Code ICD Code Onset Dates Problem Status W/U Status Risk Notes Problem Iron deficiency anemia (85665322) Iron deficiency anemia (D50.9) Active confirmed Problem 033118312 Gastroesophageal reflux disease, esophagitis presence not specified (K21.9) Active confirmed Problem 09021240 Constipation, unspecified constipation type (K59.00) Active confirmed Problem History of malignant neoplasm of colon (644735885) Personal history of colon cancer (Z85.038) Active confirmed Problem Chronic constipation (761928089) Chronic constipation (K59.09) Active confirmed Problem 76120655 Esophageal dysphagia (R13.19) Active confirmed Problem Primary adenocarcinoma of ascending colon (254452428311927) Primary adenocarcinoma of ascending colon (C18.2) Active confirmed Vital Signs Blood pressure diastolic 00 mm Hg 11/25/2024 Height 58.25 in 11/25/2024 Blood pressure systolic 00 mm Hg 11/25/2024 Weight 91 lbs 11/25/2024 BMI 18.85 kg/m2 11/25/2024 Encounters Encounter Location Date Provider Diagnosis [facility] [address] [place] [id number] 11/25/2024 Jono Rojo Personal history of colon cancer Z85.038 ; Chronic constipation K59.09 and Gastroesophageal reflux disease, esophagitis presence not specified K21.9 [facility] [address] [place] [address] 01/28/2024 Jono Rojo [facility] [address] [place] [address] 01/08/2025 Jono Rojo Assessments Encounter Date Diagnosis (ICD Code) Assessment Notes Treatment Notes Treatment Clinical Notes Section Notes 11/25/2024 Personal history of colon cancer (ICD-10 - Z85.038) Overall, Tiffanie appears well from a clinical standpoint. I did recommend a followup colonoscopy for screening purposes given her history of a colon cancer resected one year ago. We did review the rationale for that regard to colorectal cancer prevention. Full consent was obtained from her for this, including risks of bleeding and perforation. The procedure will be done with monitored anesthesia care. In regard to her chronic constipation and sense of incomplete evacuation, I did recommend she add some Metamucil fiber supplement with a lot of water to her daily regimen, as well as continuing her MiraLax. Her history of reflux and previous dysphagia seem to be stable and at their baseline. I did recommend she continue her daily PPI for that. Given her negative upper endoscopy just one year ago, I don't think a repeat upper endoscopy is currently required. Tiffanie was comfortable with this plan. Thank you again for allowing me to participate in Tiffanie's care. I shall continue to keep you advised of her progress. 11/25/2024 Chronic constipation (ICD-10 - K59.09) Add Metamucil fiber gummies with water every day for the constipation . Continue the Miralax. Overall, Tiffanie appears well from a clinical standpoint. I did recommend a followup colonoscopy for screening purposes given her history of a colon cancer resected one year ago. We did review the rationale for that regard to colorectal cancer prevention. Full consent was obtained from her for this, including risks of bleeding and perforation. The procedure will be done with monitored anesthesia care. In regard to her chronic constipation and sense of incomplete evacuation, I did recommend she add some Metamucil fiber supplement with a lot of water to her daily regimen, as well as continuing her MiraLax. Her history of reflux and previous dysphagia seem to be stable and at their baseline. I did recommend she continue her daily PPI for that. Given her negative upper endoscopy just one year ago, I don't think a repeat upper endoscopy is currently required. Tiffanie was comfortable with this plan. Thank you again for allowing me to participate in Tiffanie's care. I shall continue to keep you advised of her progress. 11/25/2024 Gastroesophageal reflux disease, esophagitis presence not specified (ICD-10 - K21.9) Overall, Tiffanie appears well from a clinical standpoint. I did recommend a followup colonoscopy for screening purposes given her history of a colon cancer resected one year ago. We did review the rationale for that regard to colorectal cancer prevention. Full consent was obtained from her for this, including risks of bleeding and perforation. The procedure will be done with monitored anesthesia care. In regard to her chronic constipation and sense of incomplete evacuation, I did recommend she add some Metamucil fiber supplement with a lot of water to her daily regimen, as well as continuing her MiraLax. Her history of reflux and previous dysphagia seem to be stable and at their baseline. I did recommend she continue her daily PPI for that. Given her negative upper endoscopy just one year ago, I don't think a repeat upper endoscopy is currently required. Tiffanie was comfortable with this plan. Thank you again for allowing me to participate in Tiffanie's care. I shall continue to keep you advised of her progress. Plan Of Treatment Pending Test Test Name Order Date Esophageal Motility study 03/14/2023 Future Test Test Name Order Date COLONOSCOPY 08/06/2013 UPPER GI ENDOSCOPY 01/06/2020 COLONOSCOPY 11/25/2024 Next Appt Details Provider Name:Jono Rojo , 03/16/2025 10:20:00 AM, [address] [place] [address] , [place], [place], [id number], Insurance Providers Payer Name Payer Address Payer Phone Subscriber Number Group Number Insured Name Patient Relationship to Insured Coverage Start Date Coverage End Date MEDICARE OF [place] [address] [place] [address] [id number] BRENDA LING TIFFANIE Self - patient is the insured [employer] ATT[employer] CLAIMS [address] [place] [address] [id number] BRENDA LING TIFFANIE Self - patient is the insured Medical (General) History Medical History History ICD Code Denies PR,DM,CVA,renal disease Colonoscopy 3-7-1933--internal hemorrhoi ds; neg. flex sigs in the [...] and 80% normal swallows Ascending colon adenocarcino ma 12/06/2023 pT3 N0-underwent surgery with Dr. Escobar [...]
--- OUTSIDE RECORDS SUMMARY | 2025-01-23 06:50 | XMS_ITS ---
Author Organization Kendell Vaughn MD Address [address] [place] [phone] Care Team Providers Care Hall Tender Name Role Phone Kendell Vaughn Primary Care Provider Results Component Value Reference Range Notes Complete Blood Count Auto Di ff Reviewed date:08/27/2024 06:47:49 PM Interpretation: Performing Lab:[facility], [address] [place] [phone] Notes/Report: White Blood Count 5.2 4.8-10.8 X10*3/uL [...] NRBC Abs Auto 0.000 0.0-0.012 X10*3/uL Comprehensive [place]. Panel Fa st Reviewed date:08/28/2024 09:26:45 PM Interpretation: Performing Lab:[facility], [address] [place] [phone] Notes/Report: Sodium 139 135-145 mmol/L Potassium 4.2 3.3-5.1 mmol/L Chloride 103 96-108 mmol/L Carbon Dioxide 30 22-29 mmol/L Anion Gap 10 12-20 Blood Urea Nitrogen 17 9-16 mg/dL Creatinine 0.69 0.5-1.4 mg/dL Estimated Glomerular Filt Rate > 60 NOTE: For -Nauruan individuals, multiply the result by 1.210. Chronic [...] PROFILE Reviewed date:08/27/2024 06:41:00 PM Interpretation: Performing Lab:[facility], [address] [place] [phone] Notes/Report: Iron 123 30-160 mcg/dL Total Iron Binding Capacity 284 228-428 mcg/d L Percent Iron Saturation 43 15-50 % Unsaturated Iron Binding 161 Lipid Panel Reviewed date:08/27/2024 06:41:40 PM Interpretation: Performing Lab:[facility], [address] [place] [phone] Notes/Report: Triglycerides 60 <150 mg/dL Desirable Triglyceride: [...] t Reviewed date:08/28/2024 09:35:22 PM Interpretation: Performing Lab:[facility], [address] [place] [phone] Notes/Report: Urine, Clean Catch Color Urine Yellow Appearance Urine Clear PH 7.5 5.0-9.0 Glucose Urine UA Negative Negative mg/dL Urine Blood Negative Negative Specific [place] - Urine 1.015 1.005-1.025 Urine Protein Negative [...] Location Date Provider Diagnosis Kendell Vaughn MD [address] [place] [id number] 08/26/2024 Kendell Vaughn Vitamin D deficiency E55.9 [...] Details Provider Name:Kendell rodriguez, 03/05/2025 10:00:00 AM, [address] [place] [address], [phone], Provider Name:Kendell rodriguez, 09/03/2025 07:15:00 AM, [address] [place] [address], [phone], Provider Name:Kendell rodriguez, 09/10/2025 08:30:00 AM, [address] [place] [address], [phone], Progress Notes * Tiffanie MCNAMARA MDOB:12/1944 (79 yo F)Acc No.[id number]:08/26/2024 Progress Note Patient:?Tiffanie Mcnamara Provider:?Kendell Vaughn MD :1945???Age:79 Y???Sex:Female D ate:08/26/2024 Address:[address], [id number] Subjective: * Chief Complaints: * ???Yearly fasting labs * Medical History:? * Surgical History:? * Hospitalization/Major Diagno stic Procedure:? * Medications:? Objective: Assessment: * Assessment: 1.?Vitamin D deficiency - E5 5.9 (Primary)?2.?Pure hypercholesterolemia - E78.00?3.?Iron deficiency anemia, unspecified iron deficiency anemia type - D50.9? Plan: * Treatment: 2.?Pure hypercholesterolemia ?LAB: Complete Blood Count Auto Diff ?LAB: [place]. Panel Fast ?LAB: Lipid Panel ?LAB: UA ClnCatch+Micro w/rflx Cult 3.?Iron deficiency anemia, u nspecified iron deficiency anemia type?LAB: Complete Blood Count Auto Diff ?LAB: [facility] [place]. Panel Fast ?LAB: IRON PROFILE ?LAB: Lipid Panel ?LAB: UA ClnCatch+Micro w/rflx Cult * Procedure Codes:?02493 VENIP UNCT, ROUTINE* * * Sign off status: Completed true * Provider:?Kendell Vaughn MD Date:?1 Generated for Donavani ng/Carlosg/eTransmitting on:?01/23/2025 06:50 AM EDT
--- OUTSIDE RECORDS SUMMARY | 2025-01-23 06:50 | XMS_ITS ---
Author Organization [facility] Address [address] [place] [address] Care Team Providers Care Delivery Lead Name Role Phone Roderick GARCIA, Kendell Primary Care Provider Jono Gamboa Unavailable [phone] Allergies Allergen (clinical drug ingredient) Drug/Non Drug Allergy documented on EMR Reaction Allergy Type Onset Date Status erythromycin Erythromycin Unknown Drug Allergy A ctive Codeine Phosphate Unknown Drug Allergy Active REASON FOR VISIT patient presents today for colon cancer Medications Medication SIG (Take, Route, Frequency, Duration) [...] vitamin d Orally Twice a day Active Social History Alcohol Screen Question Answer Notes [...] Notes: Nonsmoker x 30 yrs; 1 wine t wice a week Problems Problem Type SNOMED Code ICD Code Onset Dates Problem Status W/U Status Risk Notes Problem History of malignant neoplasm of colon (056161024) Personal history of colon cancer (Z85.038) Active confirmed Problem Chronic constipation (351610674) Chronic constipation (K59.09) Active confirmed Vital Signs Blood pressure systolic 00 mm Hg 11/25/19 25 Blood pressure diastolic 00 mm Hg 025 Height 58.25 in 11/25/2024 Weight 91 lbs 11/25/2024 BMI 18.85 kg/m2 11/25/2024 Encounters Encounter Location Date Provider Diagnosis [facility] [address] [place] [phone] 11/25/2024 Jono Rojo Personal history of colon cancer Z85.038 ; Chronic constipation K59.09 and Gastroesophageal reflux disease, esophagitis presence not specified K21.9 Assessments Encounter Date Diagnosis (ICD Code) Assessment [...] advised of her progress. Plan Of Treatment Treatment Notes Assessment Notes Chronic constipation Add Metamucil fiber gummies with water every day for the constipation. Continue the Miralax. Future Test Test Name Order Date COLONOSCOPY 11/25/2024 Next Appt Details Follow Up: prn, Reason: Provider Name:Jono Rojo , 03/16/2025 10:20:00 AM, [address] [place] [address], [phone], Progress Notes * EMIR MCNAMARAEDOB:[birth year] (79 yo F)Acc No.[id number]:11/25/2024 Progress Notes Patient:?TIFFANIE MCNAMARA Provider:?Jono Rojo MD :1945???Age:79 Y???Sex:Female D ate:11/25/2024 Address:[address] [place], [place] [id number] Pcp:Kendell Vaughn MD Subjective: * Chief Complaints: * ???Patient presents today fo r colon cancer * HPI: ???incontinence:? I saw Tiffanie in followup today in regard to her personal history of colon cancer, need for colorectal cancer screening, and her history of gastroesophageal reflux with associated dysphagia. ?As you know, Tiffanie was found to have an ascending colon carcinoma in November of 2023 when she presented to the hospital with some GI bleeding and a microcytic anemia. Her last screening colonoscopy in 2012 had been negative and based on guidelines in 2022 when she was just about 78 years old we held off on any further screening colonoscopies as she was otherwise asymptomatic from a GI standpoint. In November 2023 she underwent an upper endoscopy and colonoscopy while she was an inpatient. The upper endoscopy was negative for any significant findings and specifically did not show any sign of esophagitis nor esophageal stricture. However, her colonoscopy revealed an ascending colon adenocarcinoma for which she underwent a right colectomy with Dr. Escobar. She has been followed by Dr. Wang since that time and has not required any type of adjuvant chemotherapy. ?She reports that she generally feels well. Her bowel movements have been at their baseline with some mild constipation and sense of incomplete evacuation. She describes that she is using some MiraLax gummies and stool softeners to try to help with that. She denies any signs of bleeding. She does have some gas. ?She describes that her symptoms of reflux and heartburn have been stable but she still has the same sense of globus and dysphagia that she has had for a long time. Again, the most recent upper endoscopy one year ago did not show any sign of esophageal pathology. She does continue on her daily Prilosec. Her laboratories in August revealed a hemoglobin of 14.3 with normal MCV, iron was 123, iron saturation was 43%, and a liver profile was normal. * ROS:?General/Constitutional:?Change in appetite?denies.?Chills?denies.?Fatigue?denies.?Ophthalmologic:?Patient denies? Negative..?ENT:?Patient denies?Negative..?Respiratory:?Patient denies?No coughing/hemoptysis..?Cardiovascular:?Patient denies? No chest pain/orthopnea..?Gastrointestinal:?Comments?See HPI for details.?Genitourinary:?Patient denies? No dysuria/hematuria..?Musculoskeletal:?Patient denies? No specific arthralgias/myalgias..?Skin:?Patient denies?No rash/pruritus..?Neurologic:?Patient denies? No headaches/seizures..?Psychiatric:?Patient denies?Negative..? * Medical History:? * Surgical History:?Carpal beni dmitriy release Hammer toe C-spine disc fusion-Dr. Conteh roken wrist ateracts surgery bilateral 05/05/2024-05/19/2025 * Hospitalization/Major Diagno stic Procedure:?No Hospitalization History. * Family History:?Father: dece ased 65 yrs, lung cancer/fire safety manager.?Mother: 95 yrs, diagnosed with Heart disease.? No colorectal cancer, IBD, celiac disease. * Social History:?Tobacco Use:?Tobacco Use/Smoking?Are you a: former smoker , How long has it been since you last smoked?: > 10 years.?Drugs/Alcohol:?Alcohol Screen?Did you have a drink containing alcohol in the past year??Yes,?How often did you have a drink containing alcohol in the past year??Monthly or less (1 point), How many drinks did you have on a typical day when you were drinking in the past year??1 or 2 drinks (0 point),?How often did you have 6 or more drinks on one occasion in the past year??Never (0 point),?Points?1,?Interpretation?Negative.?Miscellaneous:?Exercise: Walks 2 miles a day. Marital status: . Occupation: retired. ???Nonsmoker x 30 yrs; 1 wine twice a week. * Medications:?TakingVitamin C 500 MG Tablet Chewable 1 tablet Orally Once a dayMiraLax 17 GM/SCOOP Powder 1 scoop mixed with 8 ounces of fluid Orally Once a dayStool Softener 100 MG Capsule 1 tablet as needed Orally 2 dailyCranberry Concentrate 500 MG Capsule as directed Orally 2 dailyCalcium 500 MG Tablet 1 tablet with meals with vitamin d Orally Twice a dayEstradiol Micronized 0.4 % Cream as directed Transdermal Calcium Citrate-Vitamin D 315-5 MG-MCG Tablet TAKE 1 TABLET BY MOUTH EVERY DAY FOR 30 DAYS Oral Ventolin HFA 108 (90 Base) MCG/ACT Aerosol Solution INHALE 2 PUFFS INTO THE LUNGS EVERY 4 HOURS NEEDED FOR 30 DAYS Inhalation , Notes: prnOmeprazole 20 MG Capsule Delayed Release TAKE 1 CAPSULE EVERY MORNING. YOU MAY SWALLOW THE CAPSULE WITH SOME APPLESAUCE, PARoxetine HCl 10 MG Tablet TAKE 1 TABLET BY MOUTH EVERY DAY IN THE MORNING Oral D3-1000 25 MCG (1000 UT) Capsule TAKE 1 CAPSULE BY MOUTH DAILY Oral Taking Vitamin C 500 MG Tablet Chewable 1 tablet Orally Once a dayTaking MiraLax 17 GM/SCOOP Powder 1 scoop mixed with 8 ounces of fluid Orally Once a dayTaking Stool Softener 100 MG Capsule 1 tablet as needed Orally 2 dailyTaking Cranberry Concentrate 500 MG Capsule as directed Orally 2 dailyTaking Calcium 500 MG Tablet 1 tablet with meals with vitamin d Orally Twice a dayTaking Estradiol Micronized 0.4 % Cream as directed Transdermal Taking Calcium Citrate-Vitamin D 315-5 MG-MCG Tablet TAKE 1 TABLET BY MOUTH EVERY DAY FOR 30 DAYS Oral Taking Ventolin HFA 108 (90 Base) MCG/ACT Aerosol Solution INHALE 2 PUFFS INTO THE LUNGS EVERY 4 HOURS NEEDED FOR 30 DAYS Inhalation , Notes: prnTaking Omeprazole 20 MG Capsule Delayed Release TAKE 1 CAPSULE EVERY MORNING. YOU MAY SWALLOW THE CAPSULE WITH SOME APPLESAUCE, Taking PARoxetine HCl 10 MG Tablet TAKE 1 TABLET BY MOUTH EVERY DAY IN THE MORNING Oral Taking D3- 1000 25 MCG (1000 UT) Capsule TAKE 1 CAPSULE BY MOUTH DAILY Oral Not- Taking/PRNPrilosec 20 MG Capsule Delayed Release 1 Orally twice a dayrOPINIRole HCl 0.5 MG Tablet Oral Not-Taking/PRN Prilosec 20 MG Capsule Delayed Release 1 Orally twice a dayNot-Taking/PRN rOPINIRole HCl 0.5 MG Tablet Oral DiscontinuedReclast 5 MG/100ML Solution as directed Intravenous Culturelle - Capsule as directed Orally Citalopram Hydrobromide 10 MG Tablet Oral Medication List reviewed and reconciled with the patientDiscontinued Reclast 5 MG/100ML Solution as directed Intravenous Discontinued Culturelle - Capsule as directed Orally Discontinued Citalopram Hydrobromide 10 MG Tablet Oral Medication List reviewed and reconciled with the patient * Allergies:?ErythromycinCodei ne Phosphateyes[Allergies Verified] Objective: * Vitals:?Wt: 91 lbs, Ht: 58.2 5 in, BMI:18.85 Index, BP: 00/00 mm Hg. * Examination: ???General Examination: ?GENERAL APPEARANCE:?pleasant, well nourished, well developed, in no acute distress.?EYES:?sclera non-icteric.?ORAL CAVITY:?mucosa moist.?NECK/THYROID:?no cervical lymphadenopathy, neck supple.?SKIN:?nonjaundiced, no spider angiomata..?HEART:?S1, S2 normal.?LUNGS:?clear to auscultation bilaterally.?ABDOMEN:?normal bowel sounds, no guarding or rigidity, no hepatosplenomegaly, no masses palpable, soft, nontender, nondistended..?EXTREMITIES:?no edema.?NEUROLOGIC:?alert and oriented.? Assessment: * Assessment: 1.?Chronic constipation - K5 9.09 (Primary)?2.?Personal history of colon cancer - Z85.038?3.?Gastroesophageal reflux disease, esophagitis presence not specified - K21.9? Overall, Tiffanie appears well from a clinical [...] to keep you advised of her progress. Plan: * Treatment: 2.?Personal history of colon cancer?Procedure: COLONOSCOPY (Ordered for 11/25/2024) * Procedure Codes:?1036F TOBAC CO NON-[id number] BP SCR NOT PRFRM REC REASON NOS * Preventive Medicine:? ??Counseling:?Care goal follow-up plan:?Below Normal BMI Follow-up?Lifestyle education regarding diet,?BMI management provided?Yes.? ??Urinary Incontinence:?Urinary Incontinence?Assessment:?Present,?Plan of care documented:?Yes,?Type of plan of care:?Lifestyle interventions.? ??Screenings:?Fall Risk Screening?Fall Risk Assessment:?No falls in the past year,?Screening:?No falls in the past year,?Assessment:?Not performed, no reason specified,?Plan of Care:?Not documented, no reason specified.? * Follow Up:?prn * * Sign off status: Completed true * Provider:?Jono Rojo MD Date:? 025 Generated for Donavani rekha/Chapito/Erick on:?01/23/2025 06:49 AM EDT History and Physical Notes * HPI (History of Present Illness) Category Sub-Category Detail Notes Category Not es incontinence I saw Tiffanie in followup today in regard to her personal history of colon cancer, need for colorectal cancer screening, and her history of gastroesophageal reflux with associated dysphagia. As you know, Tiffanie was found to have an ascending colon carcinoma in November of 2023 when she presented to the hospital with some GI bleeding and a microcytic anemia. Her last screening colonoscopy in 2012 had been negative and based on guidelines in 2022 when she was just about 78 years old we held off on any further screening colonoscopies as she was otherwise asymptomatic from a GI standpoint. In November 2023 she underwent an upper endoscopy and colonoscopy while she was an inpatient. The upper endoscopy was negative for any significant findings and specifically did not show any sign of esophagitis nor esophageal stricture. However, her colonoscopy revealed an ascending colon adenocarcinoma for which she underwent a right colectomy with Dr. Escobar. She has been followed by Dr. Wang since that time and has not required any type of adjuvant chemotherapy. She reports that she generally feels well. Her bowel movements have been at their baseline with some mild constipation and sense of incomplete evacuation. She describes that she is using some MiraLax gummies and stool softeners to try to help with that. She denies any signs of bleeding. She does have some gas. She describes that her symptoms of reflux and heartburn have been stable but she still has the same sense of globus and dysphagia that she has had for a long time. Again, the most recent upper endoscopy one year ago did not show any sign of esophageal pathology. She does continue on her daily Prilosec. Her laboratories in August revealed a hemoglobin of 14.3 with normal MCV, iron was 123, iron saturation was 43%, and a liver profile was normal. Examination Category Sub-Category Detail Notes Category Not es General Examination GENERAL APPEARANCE: pleasant , well [...]
--- OUTSIDE RECORDS SUMMARY | 2025-01-23 06:50 | XMS_ITS | Clinical Summary ---
Author Organization [facility] Address [address] [place] [address] Care Team Providers Care Computer Numerical Control Operator Name Role Phone Kendell Vaughn MD Primary Care Provider [phone] Social History Tobacco Use Types Packs/Day Years [...] age to complete this topic Care Teams Computer Numerical Control Operator Relationship Specialty Start Date End Date Kendell Vaughn MD [address] [place] [phone] PCP - General Internal Medicine 04/26/21
[2025-05-11 14:11] VITALS: BMI 18.9
--- NOTE | 2025-05-11 14:14 | HO.ANESPROP2 ---
Documented by User: Anabel Carrington NP 05/11/25 14:15 HPI - Anesthesia Eval Consult details Narrative: 79yo F for Colonoscopy PMFSH Active Problems Active Problems: All Active Problems Compression fracture of L1 lumbar vertebra (Acute) Primary adenocarcinoma of ascending colon (Chronic) Right inguinal hernia (Acute) Cervical spondylosis (Acute) Chronic pain of both shoulders (Acute) Muscle spasms of neck (Acute) Occipital neuralgia of right side (Acute) Cervicalgia (Acute) Stiffness of right hand joint (Acute) Distal radius fracture, right (Acute) Hx of neck surgery (Acute) Myofascial pain (Acute) Pulmonary fibrosis (Acute) Vitamin D deficiency (Acute) Hypercalciuria (Acute) Osteoporosis (Acute) Past Medical History Medical History Cataract (lens) fragments in eye following cataract surgery, right eye Cataract (lens) fragments in eye following cataract surgery, left eye Myofascial pain Colon cancer Vasovagal near syncope Diarrhea GI (gastrointestinal bleed) Pulmonary fibrosis Glaucoma Vitamin D deficiency Hypercalciuria Osteoporosis Family History Family History Father Lung cancer Mother CVD (cardiovascular disease) Family history of problems with anesthesia: No Surgical History Surgical History Hx of bilateral cataract extraction History of hemicolectomy S/P laparoscopic colectomy (12/05/23) S/P right colectomy Hx of appendectomy History of endoscopy History of surgery on wrist Hx of neck surgery Hx of adenoidectomy Hx of tonsillectomy Hx of colonoscopy Hx of hammer toe correction History of carpal tunnel surgery History of Problems with Anesthesia: Yes Social History Social History Household Members: Children Housing: House Are you a primary patient care technician to a significant other at home: No Do you presently have visiting nurse or other home services: No Alcohol intake: never Comment: COUNTS CORRECT Patient Tobacco Use Status: Former Tobacco user Years Smoked: 5 Use of substances other than those prescribed or required for medical reasons: No Have you been hit, kicked, punched, or otherwise hurt by someone within the past year? If so, by whom?: No Are you DNR?: No Advance Directives: No Advance Directives Information Provided: Yes Advance Directives Date on File: 05/16/24 Patient : No service: No Meds Allergies Allergy/AdvReac Type Severity Reaction Status Date / Time Sulfa (Sulfonamide Allergy Severe Anaphylaxis Verified 04/19/25 02:41 Antibiotics) sulfamethoxazole (From Allergy Severe Anaphylaxis Verified 04/19/25 02:41 Bactrim) trimethoprim (From Bactrim) Allergy Severe Anaphylaxis Verified 04/19/25 02:41 codeine (CODEINE) Allergy Intermediate GI UPSET Verified 04/19/25 02:41 erythromycin base AdvReac Severe gi upset Verified 04/19/25 02:41 Home Medications ?Medication ?Instructions ?Recorded ?Confirmed ?Last Taken ?Type cranberry fruit 400 mg capsule 400 mg PO DAILY 11/22/20 05/11/25 Unknown History docusate sodium 100 mg capsule 100 mg PO DAILY 11/22/20 05/11/25 Unknown History (Colace) estradiol 0.01% (0.1 mg/gram) 1 g vaginal 2XW 11/30/21 05/11/25 Unknown History vaginal cream omeprazole 20 mg capsule,delayed 20 mg PO DAILY PRN Acid Reflux 06/16/22 05/11/25 Unknown History release paroxetine HCl 10 mg tablet 10 mg PO QAM 12/03/23 05/11/25 Unknown History albuterol sulfate 90 mcg/actuation 1 inh inhalation QID 02/21/24 05/11/25 Unknown History aerosol inhaler (Ventolin HFA) Exam Height,Weight and Vital Signs: Height 4 ft 10.25 in Weight 41.277 kg Pertinent Lab Results Pertinent Lab Results: Laboratory Tests 04/19/25 04/23/25 03:17 13:22 WBC 9.2 Hgb 13.0 Hct 37.3 Plt Count 201 Sodium 136 Potassium 3.8 Chloride 103 Carbon Dioxide 25 BUN 11 Creatinine 0.59 Assessment and Plan Assessment Anesthesia Assessment: Chart Reviewed Final Anesthetic Review Family History of Problems with Anesthesia: No History of Problems with Anesthesia: Yes Documented by User: Keshia Zamora MD 05/13/25 08:12 [facility] Past Medical History Medical History Cataract (lens) fragments in eye following cataract surgery, right eye Cataract (lens) fragments in eye following cataract surgery, left eye Myofascial pain Colon cancer Vasovagal near syncope Diarrhea GI (gastrointestinal bleed) Pulmonary fibrosis Glaucoma Vitamin D deficiency Hypercalciuria Osteoporosis Family History Family History Father Lung cancer Mother CVD (cardiovascular disease) Surgical History Surgical History Hx of bilateral cataract extraction History of hemicolectomy S/P laparoscopic colectomy (12/05/23) S/P right colectomy Hx of appendectomy History of endoscopy History of surgery on wrist Hx of neck surgery Hx of adenoidectomy Hx of tonsillectomy Hx of colonoscopy Hx of hammer toe correction History of carpal tunnel surgery Social History Social History Household Members: Children Housing: House Are you a primary patient care technician to a significant other at home: No Do you presently have visiting nurse or other home services: No Alcohol intake: never Comment: COUNTS CORRECT Patient Tobacco Use Status: Former Tobacco user Years Smoked: 5 Use of substances other than those prescribed or required for medical reasons: No Have you been hit, kicked, punched, or otherwise hurt by someone within the past year? If so, by whom?: No Are you DNR?: No Advance Directives: No Advance Directives Information Provided: Yes Advance Directives Date on File: 05/16/24 Patient : No service: No Meds Allergies Allergy/AdvReac Type Severity Reaction Status Date / Time Sulfa (Sulfonamide Allergy Severe Anaphylaxis Verified 04/19/25 02:41 Antibiotics) sulfamethoxazole (From Allergy Severe Anaphylaxis Verified 04/19/25 02:41 Bactrim) trimethoprim (From Bactrim) Allergy Severe Anaphylaxis Verified 04/19/25 02:41 codeine (CODEINE) Allergy Intermediate GI UPSET Verified 04/19/25 02:41 erythromycin base AdvReac Severe gi upset Verified 04/19/25 02:41 Home Medications ?Medication ?Instructions ?Recorded ?Confirmed ?Last Taken ?Type cranberry fruit 400 mg capsule 400 mg PO DAILY 11/22/20 05/11/25 Unknown History docusate sodium 100 mg capsule 100 mg PO DAILY 11/22/20 05/11/25 Unknown History (Colace) estradiol 0.01% (0.1 mg/gram) 1 g vaginal 2XW 11/30/21 05/11/25 Unknown History vaginal cream omeprazole 20 mg capsule,delayed 20 mg PO DAILY PRN Acid Reflux 06/16/22 05/11/25 Unknown History release paroxetine HCl 10 mg tablet 10 mg PO QAM 12/03/23 05/11/25 Unknown History albuterol sulfate 90 mcg/actuation 1 inh inhalation QID 02/21/24 05/11/25 Unknown History aerosol inhaler (Ventolin HFA) Exam Airway Mallampati Class: II TM Dist: >3cm Neck ROM: Poor Heart: rrr Lungs: cta Assessment and Plan Assessment Anesthesia Assessment: Anesthesia Plan Discussed Final Anesthetic Review NPO: Yes ASA Class: III Final Preanesthetic Review: No Changes in Pt Med Stat, Meds/Allgs Chart Reviewed, Consent Obtained/Reviewed and Anes Risks/Benef Reviewed Patient Risk: Intermediate Procedure Risk: Low Anesthetic Plan Anesthetic Plan: MAC: Disposition: Standard PACU
[2025-05-13 07:28] VITALS: BMI 18.2
[2025-05-13 07:53] VITALS: BP 135/78; PULSE 63; RESP 16; TEMP 36.2; O2SAT 96
[2025-05-13] MEDS: Lactated Ringers 1,000 ML 100 ML IVCONT (08:06)
[2025-05-13 09:29] VITALS: BP 88/48; PULSE 67; RESP 16; TEMP 36.2; O2SAT 98
--- NOTE | 2025-05-13 09:33 | P.BOP_ITS ---
Brief Operative Note Date of Service: 05/13/25 Pre-op diagnosis: Screening Post-op diagnosis: other (Diverticulosis) Procedure: Colonoscopy to the anastomosis with biopsies Surgeon: Jono Rojo MD Anesthesia: MAC Was an Fish Egg Packer used for this Procedure?: No Estimated blood loss (mL): 2.0 Pathology: other (A. Anastomosis) Condition: stable Disposition: PACU
[2025-05-13 09:44] VITALS: BP 138/77; PULSE 61; RESP 17; O2SAT 95
[2025-05-13 09:53] VITALS: BP 135/73; PULSE 61; RESP 18; TEMP 36.2; O2SAT 96
--- NOTE | 2025-05-13 10:16 | OP_ITS ---
DATE OF SERVICE: 05/13/2025 SURGEON: Jono Rojo MD INDICATIONS: The patient presents for evaluation of personal history of colon cancer. Full consent has been obtained from her for this, including risks of bleeding and perforation. PREOPERATIVE DIAGNOSIS: POSTOPERATIVE DIAGNOSIS: PROCEDURE PERFORMED: Colonoscopy to the anastomosis and small bowel with biopsies. ESTIMATED BLOOD LOSS: COMPLICATIONS: ANESTHESIA: Medication used, monitored anesthesia care. ASSISTANTS: SPECIMENS: PREOPERATIVE DIAGNOSES: Personal history of colon cancer, and colorectal cancer screening. POSTOPERATIVE DIAGNOSES: Personal history of colon cancer, and colorectal cancer screening, diverticulosis, and internal hemorrhoids. DESCRIPTION OF PROCEDURE: The patient was placed in the left lateral decubitus position. The digital rectal exam revealed no abnormalities. The Olympus video pediatric colonoscope was entered into the rectum and advanced easily to the level of the anastomosis. The anastomosis was patent. There was some inflammation on the small bowel portion of the anastomosis, which was biopsied. There was no ulceration or mass. The colonic mucosa in this area appeared normal. The scope was then slowly withdrawn assessing all mucosal surfaces carefully. Preparation was excellent. I did not visualize any polyps, colitis, nor angiodysplasia. There was a mild amount of sigmoid diverticulosis. In the rectum, scope was retroflexed visualizing internal hemorrhoids, but no other pathology. The rectal mucosa appeared normal. Scope was straightened and withdrawn from the patient. She tolerated the procedure well and was returned to the recovery area in stable condition. IMPRESSION: 1. Diverticulosis. 2. Internal hemorrhoids. PLAN: The results of the biopsy will be checked. Given her age and the otherwise negative exam, I suspect she will not need any further screening colonoscopies despite the previous history of colon cancer. As such, she will see me on a p.r.n. basis. She was advised to continue to use Metamucil and/or MiraLAX as needed to try to keep her bowel movements regular. MD VIDHYA Wahl/SAMANL / [id number]
== END 2025-05-13 10:42 | disposition home or self-care (01) ==
PROVIDERS: PCP Internal Medicine; Visit Provider Internal Medicine
PROC: 0DJD8ZZ Inspection of Lower Intestinal Tract, Via Natural or Artificial Opening Endoscopic (ICD-10-PCS; CPT 45378; principal; 2025-05-13 08:30)
DX: Z12.11 Encounter for screening for malignant neoplasm of colon (principal); Z85.038 Personal history of other malignant neoplasm of large intestine; Z98.0 Intestinal bypass and anastomosis status; Z90.49 Acquired absence of other specified parts of digestive tract; K57.30 Diverticulosis of large intestine without perforation or abscess without bleeding; K64.8 Other hemorrhoids; K59.09 Other constipation; K21.9 Gastro-esophageal reflux disease without esophagitis; Z79.899 Other long term (current) drug therapy; Z88.2 Allergy status to sulfonamides; Z88.5 Allergy status to narcotic agent
CPT/HCPCS: 45380; 88305; J2704

== ENCOUNTER 2025-05-28 11:15 | Outpatient (REF) | payer MEDICARE, SELFPAY ==
--- OUTSIDE RECORDS SUMMARY | 2025-04-20 06:07 | XMS_ITS ---
Author Organization Kendell Vaughn MD Address [address] [place] [phone] Care Team Providers Care Gas Welder Apprentice Name Role Phone Kendell Vaughn Primary Care Provider [phone] REASON FOR VISIT ER Encounters Encounter Location Date Provider Diagnosis Kendell Vaughn MD [address] [place], [place] [phone] 04/20/2025 Kendell Vaughn Plan Of Treatment Next Appt Details Provider Name:Kendell rodriguez, 06/11/2025 01:30:00 PM, [address], [address], [place], [place], [phone], Provider Name:Kendell rodriguez, 09/03/2025 07:15:00 AM, [address] [facility], [address], [place], [place], [phone], Provider Name:Kendell Cadena ier, 09/10/2025 08:30:00 AM, [address] [facility], [address], [place], [place], [phone], Progress Notes * Tiffanie MCNAMARA MDOB:12/1944 (79 yo F)Acc No.[id number]:04/20/2025 Patient: Tiffanie COTA :1945 A ge:79 Y S ex:Female Address: [address], [place] [address] * true * Date: Generated for Devorah da silva/Chapito/eTransmitting on: 0 05/28/2025 12:05 PM EDT
--- OUTSIDE RECORDS SUMMARY | 2025-05-13 05:30 | XMS_ITS ---
Author Organization [facility] Address [address] [place] [address] Care Team Providers Care Save All Operator Name Role Phone Kendell Vaughn MD Primary Care Provider Jono Gamboa [phone] REASON FOR VISIT personal hx colon ca Encounters Encounter Location Date Provider Diagnosis [facility] Outpatient [address] [place] [id number] 05/13/2025 Jono Rojo Plan Of Treatment No Information Progress Notes * GREYSON MCNAMARAOB:[birth year] (79 yo F)Acc No.[id number]:05/13/2025 COLON WITH MAC Patient: Yasmine KRIS HILTON Provider: Nancy oRjo MD :1945 A ge:79 Y S ex:Female Date:05/13/2025 Address:[address] [place], [place] [id number] Pcp:Kendell Vaughn MD Subjective: * Chief Complaints: [...] Pending * Provider: Nancy Rojo MD Date: 05/13/2025 Generated for Donavani ng/Faxing/eTransmitting on: 05/28/2025 12:05 PM EDT
--- NOTE | ~2025-05-28 | CT_ITS ---
CLINICAL HISTORY: DIARRHEA,ABD PAIN CT abdomen and pelvis with contrast Comparison: None provided Findings: CT abdomen: Emphysematous changes with areas of pulmonary fibrosis within the lung bases. No pleural effusion or pneumothorax. Moderate to severe multilevel degenerative disc disease and degenerative facet disease throughout the visualized portions of the thoracolumbar spine. Age-indeterminate superior endplate L1 compression fracture with approximately 20% height loss. Minor retropulsion of the posterior superior fragment. No definitive adjacent inflammatory stranding. [id number] convex right thoracolumbar curvature with compensatory convex left mid lumbar curvature. Low-attenuation throughout the liver is indicative of fatty infiltration. No focal hepatic lesion. Main portal vein is patent. Spleen, pancreas, gallbladder, and adrenal glands are unremarkable for acute findings. There is mild hyperplasia of both adrenal glands. Symmetric enhancement of the kidneys without mass or stone disease. Prominent extrarenal pelvis of each kidney without perinephric stranding. High-density enteric contrast material is seen within the stomach, small bowel, and colon. No dilated small bowel is identified. No free fluid or free air. CT pelvis: Large amount of stool throughout the colon. This is seen from the rectum to the cecum. High-density contrast material seen throughout the colon. There is a small bowel containing right inguinal hernia. No obstructive phenomenon seen in association with this. No findings of appendicitis. Presumed pessary device is seen within the upper vagina. Urinary bladder is mildly distended. No free fluid or free air. IMPRESSION: 1. Large amount of stool throughout the colon without findings of obstruction. 2. Small bowel containing right inguinal hernia without obstructive phenomenon. 3. Mixed emphysematous and fibrotic changes within the lung bases. This document has been electronically signed by: Sammy Pizano MD on 05/29/2025 09:15:04
--- OUTSIDE RECORDS SUMMARY | 2025-05-28 12:05 | XMS_ITS | Clinical Summary ---
Author Organization [facility] Address [address] [place] [address] Care Team Providers Care Health Services Director Name Role Phone Kendell Vaughn MD Primary Care Provider [phone] Social History Tobacco Use Types Packs/Day Years [...] 1-dose 75+ series) 2018 Influenza Vaccine (#1) 2025 Hepatitis B Vaccines Aged Out No long er eligible based on patient's age to complete this topic RSV Ped < 20 months Aged Out No longe r eligible based on patient's age to complete this topic Care Teams Health Services Director Relationship Specialty Start Date End Date Kendell Vaughn MD [address] [place] [address] PCP - General Internal Medicine 04/26/21
--- OUTSIDE RECORDS SUMMARY | 2025-05-28 12:05 | XMS_ITS | Patient Health Record ---
Author Organization [facility] Address [address] [facility] [place] [address] Care Team Providers Care Senior Nurse Manager Name Role Phone Roderick GARCIA, Kendell Primary Care Provider Ken Gilmore Unavailable [phone] Allergies Allergen (clinical drug ingredient) Drug/Non Drug Allergy documented on EMR Reaction Allergy Type Onset Date Status codeine Codeine upset stomach Drug Allergy Act eliseo Reason For Referral No Information Medications Medication SIG (Take, Route, Fr equency, Duration) Notes Start Date End Date Status Calcium Citrate 600 MG Unknown Fish Oil 1200 MG 1 capsule Orally twice a day Active PriLOSEC 1 tab Once a day Act eliseo Calcium 2 tabs as needed Act eliseo Advil 200 MG 1 capsule as needed Orally every 6 hrs 07/31/2013 Unknown Ibuprofen 800 MG 1 tablet every Orall y Three times a day; Duration: 30 days 08/02/2015 Unknown Vitamin D 1000 UNIT 1 tablet Orally thre e times per week Active Cranberry 2 daily Active Stool Softener 2 daily Activ e Culturelle 1 daily Active Estradiol 0.1 MG/GM as directed Vaginal Active Social History Tobacco Use: Social History Observation Description Date Details (start date - stop date) Former Smoker NA - NA Tobacco Use/Smoking Question Answer Notes Are you a: former smoker Additional Findings: Tobacco Non-User Current no n-smoker Alcohol Screen Question Answer Notes Did you have a drink containing alcohol in the p ast year? Yes Points 0 Interpretation Negative Tobacco use other than smoking: Question Answer Notes Are you an other tobacco user? No Problems Problem Type SNOMED Code ICD Code Onset Dates Problem Status W/U Status Risk Notes Problem Acquired hammer toe of right foot (6440705596282133) Other hammer toe(s) (acquired), right foot (M20.41) Active confirmed Problem Localized, primary osteoarthritis of the ankle and/or foot (402455808) Primary osteoarthrit is, right ankle and foot (M19.071) Active confirmed Problem Primary osteoarthrit is, left ankle and foot (M19.072) Active confirmed Problem Acquired hallux rigidus (1355990) Hallux rigidus, left foot (M20.22) Active confirmed Problem Acquired hallux rigidus (6644102) Hallux rigidus, right foot (M20.21) Active confirmed Plan Of Treatment Pending Test Test Name Order Date X ray : Foot, left 2V 06/02/2015 X ray : Foot, left 2V 07/31/2013 X ray : Foot, right 2V 06/02/2015 X ray : Foot, right 2V 07/31/2013 X ray : Foot, right 2V 08/16/2015 X ray : Foot, right 2V 09/20/2015 X ray : Foot, right 2V 12/13/2015 X ray : Foot, left 3V 08/27/2019 X ray : Foot, right 3V 08/27/2019 Insurance Providers Payer Name Payer Address Payer Phone Subscriber Number Group Number Insured Name Patient Relationship to Insured Coverage Start Date Coverage End Date Medicare [employer] [address] [place] [address] [id number] Tiffanie Catalan Self - patient is the insured [facility] [address] [place] [address] [phone] [id number] Tiffanie Catalan Self - patient is the insured Medical (General) History Medical History History ICD Code mumps measles chicken pox Osteoporosis Surgical History Surgery Date(Month/Year) carpal tunnel surgery 2015 HT right 5th 08/12/2015
[2025-05-28] MEDS: iohexoL 350 MG/ML 100 ML INFUS..BTL IV (14:21)
[2025-05-28] MEDS: Barium Sulfate Oral (Berry) 450 ML ORAL.SUSP 900 ML PO (14:22)
[2025-05-28 15:46] LABS: Creatinine POC 0.6 mg/dL (0.5-1.4); GFR POC > 60
== END 2025-05-28 11:16 | disposition home or self-care (01) ==
LOC: HO.CT 11:15
PROVIDERS: PCP Internal Medicine; Visit Provider Internal Medicine
DX: R10.9 Unspecified abdominal pain (principal); R19.7 Diarrhea, unspecified
CPT/HCPCS: 74177; 82565; Q9967

== ENCOUNTER → 2025-05-28 11:18 | Outpatient (BNV) | payer MEDICARE, SELFPAY | PROVIDERS: PCP Internal Medicine; Visit Provider Radiology Diagnostic Radiology | DX: J84.10 Pulmonary fibrosis, unspecified (principal); K40.30 Unilateral inguinal hernia, with obstruction, without gangrene, not specified as recurrent | CPT/HCPCS: 74177 ==

== ENCOUNTER 2025-08-13 10:45 | Outpatient (REF) | payer MEDICARE, SELFPAY ==
--- OUTSIDE RECORDS SUMMARY | 2024-09-25 07:20 | XMS_ITS ---
Author Organization [facility] Address [address] [place] [phone] Care Team Providers Care Legal Paraprofessional Name Role Phone Kendell Vaughn MD Primary Care Provider Jono Gamboa [phone] REASON FOR VISIT screening colonoscopy/rectal pressure, hx colon cancer Encounters Encounter Location Date Provider Diagnosis [facility] [address] [facility] [facility] [address] [place] [phone] 09/25/2024 Jono Rojo Plan Of Treatment No Information Progress Notes * ANDERSMICHIADEDOB:[birth year] (80 yo F)Acc No.[id number]:09/25/2024 Progress Notes Patient: KRIS COTA Provider: Nancy Rojo MD :1945 A ge:79 Y S ex:Female Date:09/25/2024 Address:[address] [place], [place] [phone] Pcp:Kendell Vaughn MD Subjective: * Chief Complaints: * 1 . Screening colonoscopy/rectal pressure, hx colon cancer. * Medical History: Objective: * Vitals: Assessment: Plan: * Treatment: * * The named appointment provid er may or may not be the originator of this progress note, and it is not deemed complete until electronically signed by the appointment provider. Sign off status: Pending * Provider: Nancy Rojo MD Date: 11/25/2023 Generated for Donavani rekha/Chapito/eTransmitting on: 1 12:34 PM EDT
--- OUTSIDE RECORDS SUMMARY | 2025-01-07 10:40 | XMS_ITS ---
Author Organization [facility] Address [address] [place] [phone] Care Team Providers Care Dry Cleaning Counter Clerk Name Role Phone Kendell Vaughn MD Primary Care Provider Jono Gamboa [phone] REASON FOR VISIT colon screening Encounters Encounter Location Date Provider Diagnosis [facility] [address] [place] [phone] 01/07/2025 Jono Rojo Plan Of Treatment No Information Progress Notes * EMIR MCNAMARAEDOB:[birth year] (80 yo F)Acc No.[id number]:01/07/2025 Progress Notes Patient: Yasmine YEAGERHARINIMICHIKRIS Provider: Nancy Rojo MD :1945 A ge:79 Y S ex:Female Date:01/07/2025 Address:[address] [place], [place] [phone] Pcp:Kendell Vaughn MD Subjective: * Chief Complaints: * 1 . Colon screening. * Medical History: Objective: * Vitals: Assessment: Plan: * Treatment: * * The named appointment provid er may or may not be the originator of this progress note, and it is not deemed complete until electronically signed by the appointment provider. Sign off status: Pending * Provider: Nancy Rojo MD Date: 0 01/07/2025 Generated for Printi ng/Faxing/eTransmitting on: 1 12:33 PM EDT
--- OUTSIDE RECORDS SUMMARY | 2025-04-07 09:30 | XMS_ITS ---
Author Organization Kendell Vaughn MD Address [address] [place] [phone] Care Team Providers Care Cloth Winder Machine Operator Name Role Phone Kendell Vaughn Primary Care Provider Allergies Allergen (clinical drug ingredient) Drug/Non Drug Allergy documented on EMR Reaction Allergy Type Onset Date Status codeine Codeine Sulfate gi upset Drug Allergy A ctive sulfamethoxazole / trimethoprim Bactrim DS heart palpitations Drug Allergy Active erythromycin erythromycin (uncoded) gi upset Allergy Active REASON FOR VISIT must see MRI Lumbar results Medications Medication SIG (Take, Route, Frequency, Duration) Notes Start Date End Date Status Omeprazole 20 MG 1 capsule 30 minutes before morning meal Orally Once a day Active Estradiol 0.1 MG/GM 1 application Vagina l Two times a Week Active PriLOSEC OTC 20 MG 2 tablet 30 minutes before morning meal Orally Once a day Not-Taking Vitamin D (Cholecalciferol) 25 MCG (1000 UT) 1 capsule Orally Once a day Active Calcium 600 MG 1 tablet with meals Orally once a day Active Albuterol Sulfate HFA 108 (90 Base) MCG/ACT 2 puff as needed Inhalation every 4 hrs 02/16/2023 Active Vitamin C 500 MG as directed Orally Active Cranberry 405 MG 1 capsule with meals Orally Twice a day Active Stool Softener 100 MG 1 tablet as needed Orally three times a day Active PARoxetine HCl 10 MG TAKE 1 TABLET BY [facility] EVERY DAY IN THE MORNING for 90 Active tiZANidine HCl 2 MG 1 tablet as needed Orally Three times a day Not-Rustam ing Ibuprofen 800 MG 1 TABLET ORALLY THRE E TIMES A DAY for 30 Not-Taking Ativan 0.5 MG 1 tablet as needed Orally Twice a day 06/15/2015 Not-Taking Methenamine Hippurate 1 GM 1 tablet Orally Twice a day for 10 day(s) Not-Taking Vital Signs Blood pressure systolic 122 mm Hg 04/07/20 25 Blood pressure diastolic 50 mm Hg 025 Height 59.5 in 04/07/2025 Weight 94 lbs 04/07/2025 BMI 18.67 kg/m2 04/07/2025 Encounters Encounter Location Date Provider Diagnosis Kendell Vaughn MD [address] [place] [address] [place] [phone] 04/07/2025 Kendell Vaughn Lumbar disc disease M51.9 and Near syncope R55 Assessments Encounter Date Diagnosis (ICD Code) Assessment Notes Treatment Notes Treatment Clinical Notes Section Notes 04/07/2025 Lumbar disc disease (ICD-10 - M51.9) referral to dr thompson/Referr al is already enterted in system and info faxed to Dr. Yady chang. 04/07/2025 Near syncope (ICD-10 - R55) will check pulse when she feels the light headedness Plan Of Treatment Treatment Notes Assessment Notes Lumbar disc disease referral to dr vaishali tomlinson/Referral is already enterted in system and info faxed to Dr. Yady chang. Near syncope will check pulse whe n she feels the light headedness Next Appt Details Provider Name:Kendell Cadena ier, 09/03/2025 07:15:00 AM, [address], [address], [place], [place], [phone], Provider Name:Kendell Cadena ier, 09/10/2025 08:30:00 AM, [address] [facility], [address], [place], [place], [phone], Progress Notes * Tiffanie MCNAMARA MDOB:12/1944 (79 yo F)Acc No.[id number]:04/07/2025 Patient: Tiffanie COTA Provider: Edin Vaughn MD :1945 A ge:79 Y S ex:Female Date:04/07/2025 Address:[address] [place] [id number] Subjective: * Chief Complaints: * m ust see MRI Lumbar results * HPI: S ymptom(s): patient is a 79 yo female here to discuss the results of recent MRI/ pain into groin and into hip/ for a week, gets light headed with bowel movements. * ROS: G eneral/Constitutional: Denies C hills. D enies F atigue. D enies F ever. D enies H eadache. E NT: Denies S ore throat. R espiratory: Denies C ough. D enies S hortness of breath at rest. D enies S hortness of breath with exertion. G astrointestinal: Denies D iarrhea. D enies N ausea. * Medical History: * Surgical History: * Hospitalization/Major Diagno stic Procedure: * Medications: T akingVitamin C 500 MG Capsule as directed Orally [...] reviewed and reconciled with the patient * Allergies: e rythromycin: gi upsetCodeine Sulfate: gi upsetBactrim DS: heart palpitationsyes[Allergies Verified] Objective: * Vitals: H t: 59.5, Wt: 94, BMI:18.67, BP:122/50, Wt-k.64. * Examination: G eneral Examination: GENERAL APPEARANCE: a lert, well hydrated, in no distress.? HEAD: n ormocephalic. SKIN: g ood turgor. HEART: n o murmurs, rubs, gallops, regular rate and rhythm.? LUNGS: n o wheezes, rales, rhonchi, good air movement, clear to auscultation bilaterally. Assessment: * Assessment: 1. L umbar disc disease - M51.9 (Primary) 2 . N ear syncope - R55 ? Plan: * Treatment: 2. N ear syncope Notes: will check pulse when she feels the light headedness * Procedure Codes: * * Sign off status: Completed true * Provider: Edin Vaughn MD Date: 0 04/07/2025 Generated for Devorah da silva/Chapito/Erick on: 12:34 PM EDT History and Physical Notes * HPI (History of Present Illness) Category Sub-Category Detail Notes Category Not es Symptom(s) patient is a 79 yo female here to discuss the results of recent MRI/ pain into groin and into hip/ for a week, gets light headed with bowel movements. Examination Category Sub-Category Detail Notes Category Not es General Examination GENERAL APPEARANCE: alert, w ell hydrated, in no distress HEAD: normocephalic HEART: no murmurs, rubs, ga llops, regular rate and rhythm LUNGS: no wheezes, rales, r honchi, good air movement, clear to auscultation bilaterally SKIN: good turgor
--- OUTSIDE RECORDS SUMMARY | 2025-04-20 06:07 | XMS_ITS ---
Author Organization Kendell Vaughn MD Address [address] [place] [phone] Care Team Providers Care Online Editor Name Role Phone Kendell Vaughn Primary Care Provider REASON FOR VISIT ER Encounters Encounter Location Date Provider Diagnosis Kendell Vaughn MD [address] [facility] [address] [place], [place] [phone] 04/20/2025 Kendell Vaughn Plan Of Treatment Next Appt Details Provider Name:Kendell rodriguez, 09/03/2025 07:15:00 AM, [address] [facility], [address], [place], [place], [phone], Provider Name:Kendell rodriguez, 09/10/2025 08:30:00 AM, [address], [address], [place], [phone], Progress Notes * Tiffanie MCNAMARA MDOB:12/1944 (79 yo F)Acc No.[id number]:04/20/2025 Patient: Tiffanie COTA :1945 A ge:79 Y S ex:Female Address:[address] [place] [address], [place] [address] * true * Date: Generated for Devorah da silva/Chapito/eTransmitting on: 12:33 PM EDT
--- OUTSIDE RECORDS SUMMARY | 2025-04-23 08:45 | XMS_ITS ---
Author Organization Kendell Vaughn MD Address [address] [place], [place] [phone] Care Team Providers Care Inner Tube Cutter Name Role Phone Kendell Vaughn Primary Care [...] Nitrogen Reviewed date:04/23/2025 05:22:10 PM Interpretation: Performing Lab:[facility], [address] [place] [phone] Notes/Report: Blood Urea Nitrogen 11 9-16 mg/dL Creatinine Reviewed date:04/23/2025 05:25:36 PM Interpretation: Performing Lab:[facility], [address] [place] [phone] Notes/Report: Creatinine 0.59 0.5-1.4 mg/dL Estimated Glomerular [...] HCl 10 MG TAKE 1 TABLET BY [place] UT EVERY DAY IN THE MORNING for [...] Date Provider Diagnosis Kendell Vaughn MD [address] [facility] [address] [place], [place] [phone] 04/23/2025 Kendell Vaughn Diarrhea R19.7 ; Abdominal pain R10.9 and Blood tests prior to treatment or procedure Z01.812 Assessments Encounter Date Diagnosis (ICD Code) Assessment Notes Treatment Notes Treatment Clinical Notes Section Notes 04/23/2025 Diarrhea (ICD-10 - R19.7) order faxed to [facility] , pending diagnostic testing 04/23/2025 Abdominal pain (ICD-10 - R10.9) pending diagnostic testing 04/23/2025 Blood tests prior to treatment or procedure (ICD-10 - Z01.812) Plan Of Treatment Treatment Notes Assessment Notes Diarrhea order faxed to [facility] , pending diagnostic testing Abdominal pain pending diagnostic t esting Pending Test Test Name Order Date CLOSTRIDIUM DIFF TOXIN A&B (C DIFF) 04/12 CT ABD & PELVIS WITH CONTRAST 04/23/2025 Next Appt Details Follow Up: after ct, Reason: Provider Name:Kendell Cadena ier, 09/03/2025 07:15:00 AM, [address] [place] [address], [address] [place] [address], [phone], Provider Name:Kendell Cadena ier, 09/10/2025 08:30:00 AM, [address] [place] [address], [place] [address], [place], [place], [phone], Progress Notes * Tiffanie MCNAMARA MDOB:12/1944 (79 yo F)Acc No.[id number]:04/23/2025 Progress Notes Patient: Tiffanie COTA Provider: Edin Vaughn MD :1945 A ge:79 Y S ex:Female Date:04/23/2025 Address:[address] [place] [id number] Subjective: * Chief Complaints: * N OT [...] Date: 0 04/23/2025 Generated for Devorah da silva/Chapito/Erick on: 12:34 [...]
--- OUTSIDE RECORDS SUMMARY | 2025-05-13 05:30 | XMS_ITS ---
Author Organization [facility] Address [address] [place] [address] Care Team Providers Care Electronic Page Makeup System Operator Name Role Phone Kendell Vaughn MD Primary Care Provider Jono Gamboa [phone] REASON FOR VISIT personal hx colon ca Encounters Encounter Location Date Provider Diagnosis [facility] Outpatient [address] [place] [id number] 05/13/2025 Jono Rojo Plan Of Treatment No Information Progress Notes * GREYSON MCNAMARAOB:[birth year] (80 yo F)Acc No.[id number]:05/13/2025 COLON WITH MAC Patient: Yasmine KRIS HILTON Provider: Nancy Rojo MD :1945 A ge:79 Y S ex:Female Date:05/13/2025 Address:[address] [place], [place] [id number] Pcp:Kendell Vaughn MD Subjective: * Chief Complaints: * 1 . Personal hx colon ca. * Medical History: Objective: * Vitals: Assessment: Plan: * Treatment: * * The named appointment provid er may or may not be the originator of this progress note, and it is not deemed complete until electronically signed by the appointment provider. Sign off status: Pending * Provider: Nancy Rojo MD Date: 0 05/13/2025 Generated for Printi ng/Faxing/eTransmitting on: 1 12:32 PM EDT
--- OUTSIDE RECORDS SUMMARY | 2025-06-11 09:30 | XMS_ITS ---
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 Assessments [...] patient, Next Appt Details Provider Name:Kendell rodriguez, 09/03/2025 07:15:00 AM, [address] [place] [address] Drive, [address], [place], [place], [phone], Provider Name:Kendell Cadena ier, 09/10/2025 08:30:00 AM, [address] [facility] [address], [address], [place], [phone], Progress Notes * Tiffanie MCNAMARA MDOB:12/1944 (79 yo F)Acc No.[id number]:06/11/2025 Patient: Tiffanie COTA Provider: Edin Vaughn MD :1945 A ge:79 Y S ex:Female Date:06/11/2025 Address:[address] [place] [address], [place], [phone] Subjective: * Chief Complaints: * m ust [...] Vaughn MD Date: 0 06/11/2025 Generated for Devorah da silva/Chapito/Carlyitting on: 1 12:33 PM EDT History and Physical Notes * [...]
--- OUTSIDE RECORDS SUMMARY | 2025-06-22 03:30 | XMS_ITS ---
Author Organization [facility] Address [address] [place] [address] Care Team Providers Care Dress Marker Name Role Phone Kendell Vaughn MD Primary Care Provider Jono Gamboa [phone] REASON FOR VISIT personal hx colon ca Encounters Encounter Location Date Provider Diagnosis [facility] [address] [place] [phone] 06/22/2025 Jono Rojo Plan Of Treatment No Information Progress Notes * GREYSON MCNAMARAOB:[birth year] (80 yo F)Acc No.[id number]:06/22/2025 COLON WITH MAC Patient: Yasmine KRIS HILTON Provider: Nancy Rojo MD :1945 A ge:79 Y S ex:Female Date:06/22/2025 Address:[address] [place], [place] [phone] Pcp:Kendell Vaughn MD Subjective: * Chief Complaints: [...] Rojo MD Date: 0 06/22/2025 Generated for Printi ng/Faxing/eTransmitting on: 1 12:33 PM EDT
--- OUTSIDE RECORDS SUMMARY | 2025-07-20 06:00 | XMS_ITS ---
Author Organization Kendell Vaughn MD Address [address] [place] [phone] Care Team Providers Care Watch Repair Technician Name Role Phone Roderick Kendell Primary Care Provider [phone] REASON FOR VISIT HDF Immunizations Vaccine Route Administration Date Status Comme nts Influenza High Dose IM Intramuscular 07/20/2025 Administer ed Encounters Encounter Location Date Provider Diagnosis Kendell Vaughn MD [address] [facility] [address] [place] [phone] 07/20/2025 Kendell Vaughn Encounter for administration of vaccine Z23 Assessments Encounter Date Diagnosis (ICD Code) Assessment Notes Treatment Notes Treatment Clinical Notes Section Notes 07/20/2025 Encounter for administration of vaccine (ICD-10 - Z23) Plan Of Treatment Next Appt Details Provider Name:Kendell Cadena ier, 09/03/2025 07:15:00 AM, [address], [address], [place], [place], [phone], Provider Name:Kendell Cadena ier, 09/10/2025 08:30:00 AM, [address], [address], [place], [place], [phone], Progress Notes * Tiffanie MCNAMARA MDOB:12/1944 (80 yo F)Acc No.[id number]:07/20/2025 Progress Note Patient: Yasmine Tiffanie HILTON Provider: Edin Vaughn MD :1945 A ge:79 Y S ex:Female Date:07/20/2025 Address:[address] [place], [place] [phone] Subjective: * Chief Complaints: * 1 . [...] Date: 0 07/20/2025 Generated for Devorah da silva/Chapito/Erick on: 1 12:33 PM EDT
--- OUTSIDE RECORDS SUMMARY | 2025-08-13 12:34 | XMS_ITS | Clinical Summary ---
Author Organization [facility] Address [address] [place] [address] Care Team Providers Care Director Of National Sales Name Role Phone Kendell Vaughn MD Primary Care Provider [phone] Social History Tobacco Use Types Packs/Day Years [...] age to complete this topic Care Teams Director Of National Sales Relationship Specialty Start Date End Date Kendell Vaughn MD [address] [facility] [place] [phone] PCP - General Internal Medicine 04/26/21
--- OUTSIDE RECORDS SUMMARY | 2025-08-13 12:34 | XMS_ITS | Patient Health Record ---
Author Organization Kendell Vaughn MD Address [address] [place] [id number] Care Team Providers Care Mig Tig Welder Name Role Phone Kendell Vaughn Primary Care Provider [phone] Allergies Allergen (clinical drug ingredient) Drug/Non Drug Allergy documented on EMR Reaction Allergy Type Onset Date Status codeine Codeine Sulfate gi upset Drug Allergy A ctive sulfamethoxazole / trimethoprim Bactrim DS heart palpitations Drug Allergy Active erythromycin erythromycin (uncoded) gi upset Allergy Active Results Component Value Reference Range Notes UA ClnCatch+Micro w/rflx Cul t Reviewed date:02/24/2025 09:53:03 AM Interpretation: Performing Lab:[facility], [address] [place] [phone] Notes/Report: Urine, Clean Catch Color Urine Yellow Appearance Urine Turbid PH 8.0 5.0-9.0 Glucose Urine UA Negative Negative mg/dL Urine Blood Negative Negative Specific [place] - Urine 1.015 1.005-1.025 Urine Protein Negative [...] ff Reviewed date:08/27/2024 06:47:49 PM Interpretation: Performing Lab:[facility], [address] [place] [phone] Notes/Report: White Blood Count 5.2 4.8-10.8 X10*3/uL [...] NRBC Abs Auto 0.000 0.0-0.012 X10*3/uL Comprehensive Bradley. Panel [facility] Reviewed date:08/28/2024 09:26:45 PM Interpretation: Performing Lab:[facility], [address] [place] [phone] Notes/Report: Sodium 139 135-145 mmol/L Potassium 4.2 3.3-5.1 mmol/L Chloride 103 96-108 mmol/L Carbon Dioxide 30 22-29 mmol/L Anion Gap 10 12-20 Blood Urea Nitrogen 17 9-16 mg/dL Creatinine 0.69 0.5-1.4 mg/dL Estimated Glomerular Filt Rate > 60 NOTE: For -Pakistani individuals, multiply the result by 1.210. Chronic [...] PROFILE Reviewed date:08/27/2024 06:41:00 PM Interpretation: Performing Lab:[facility], [address] [place] [phone] Notes/Report: Iron 123 30-160 mcg/dL Total Iron Binding Capacity 284 228-428 mcg/dL Percent Iron Saturation 43 15-50 % Unsaturated Iron Binding 161 Lipid Panel Reviewed date:08/27/2024 06:41:40 PM Interpretation: Performing Lab:[facility], [address] [place] [phone] Notes/Report: Triglycerides 60 <150 mg/dL Desirable Triglyceride: [...] t Reviewed date:08/28/2024 09:35:22 PM Interpretation: Performing Lab:[facility], [address] [place] [phone] Notes/Report: Urine, Clean Catch Color Urine Yellow Appearance Urine Clear PH 7.5 5.0-9.0 Glucose Urine UA Negative Negative mg/dL Urine Blood Negative Negative Specific [place] - Urine 1.015 1.005-1.025 Urine Protein Negative [...] t Reviewed date:02/10/2025 09:39:40 AM Interpretation: Performing Lab:[facility], [address] [place] [phone] Notes/Report: Urine, Clean Catch Color Urine Yellow Appearance Urine Cloudy PH 5.5 5.0-9.0 Glucose Urine UA Negative Negative mg/dL Urine Blood Large (3+) Negative Specific [place] - Urine 1.010 1.005-1.025 Urine Protein 30 (1+) Neg-Trace mg/dL Urine Ketones Negative Negative mg/dL Nitrite Urine Negative Negative Leukocyte Esterase Urine Large (3+) Negative RBC Urine >20 0-2 /HPF WBC Urine >50 0-5 /HPF Squamous Epithelial Cell Urine 0-2 0-2 /HPF Bacteria Urine Trace None Seen Hyaline Casts Urine 0-2 0-2 /LPF Urinalysis and Microscopic Reviewed date:03/05/2025 04:52:46 PM Interpretation: Performing Lab:[address] [phone] Notes/Report: Color Urine Yellow Appearance Urine Clear PH 6.5 5.0-9.0 Glucose Urine UA Negative Negative mg/dL Urine Blood Negative Negative Specific [place] - Urine <= 1.005 1.005-1.025 Urine Protein Negative Neg-Trace mg/dL Urine Ketones Negative Negative mg/dL Nitrite Urine Negative Negative Leukocyte Esterase Urine Large (3+) Negative RBC Urine 0-2 0-2 /HPF WBC Urine 11-20 0-5 /HPF Squamous Epithelial Cell Urine 0-2 0-2 /HPF Bacteria Urine None Seen None Seen Hyaline Casts Urine 0-2 0-2 /LPF Urine Culture Reviewed date:03/06/2025 03:39:20 PM Interpretation: Performing Lab:[address] [address] Notes/Report: Urine Culture Report Result Urine Culture < 10,000 cfu/ml XR sacroiliac joint min 3V Reviewed date:03/19/2025 12:25:53 PM Interpretation: Performing Lab: Notes/Report: [address] [address] XRay Report Signed Patient: Tiffanie Friedman MR#: [id number] : 1945 Acct:[id number] Age/Sex: 79 / F ADM Date: 03/19/25 Loc: BLAINE Attending Dr: Kendell Vaughn MD Ordering Physician: Kendell Vaughn MD Date of Service: 03/19/25 Procedure(s): XR sacroiliac joint min 3V Accession Number(s): [id number] cc: Kendell Vaughn MD EXAMINATION: XR SACROILIAC [...] 03/19/25 1052 DD/ 1025 TD/TT: 03/19/25 1040 It Service Continuity Supervisor: [place] [address] XRay Report Signed Patient: Tiffanie Friedman MR#: [id number] : 1945 Acct:[id number] Age/Sex: 79 / F ADM Date: 03/19/25 Loc: HO.XRAY Attending Dr: Kendell Vaughn MD Ordering Physician: Kendell Vaughn MD Date of Service: 03/19/25 Procedure(s): XR sacroiliac joint min 3V Accession Number(s): [id number] cc: Kendell Vaughn MD EXAMINATION: XR SACROILIAC JOINTS CLINICAL INFORMATION: COMPRESSION FX FIRST LUMBAR VIRTEBRA,ROUTINE HEALING COMPARISON: None available. TECHNIQUE: 3 views of the sacro iliac joints FINDINGS: There is mild diffus e [...] 10:52 AM EDT RP Dictated By: Brennan Hall MD Signed By: <Electron ically signed by Brennan Garcia MD in OV> 03/19/25 1052 DD/ 1025 TD/TT: 03/19/25 1040 It Service Continuity Supervisor: XR hip LT min 2V Reviewed date:03/19/2025 12:26:24 PM Interpretation: Performing Lab: Notes/Report: [address] [address] XRay Report Signed Patient: Tiffanie Friedman MR#: [id number] : 1945 Acct:[id number] Age/Sex: 79 / F ADM Date: 03/19/25 Loc: HO.XRAY Attending Dr: Kendell Vaughn MD Ordering Physician: Kendell Vaughn MD Date of Service: 03/19/25 Procedure(s): XR hip LT min 2V Accession Number(s): [id number] cc: Kendell Vaughn MD EXAMINATION: XR HIP, [...] 03/19/25 1050 DD/ 1004 TD/TT: 03/19/25 1040 It Service Continuity Supervisor: [address] [place] [address] XRay Report Signed Patient: Tiffanie Friedman MR#: [id number] : 1945 Acct:[id number] Age/Sex: 79 / F ADM Date: 03/19/25 Loc: HO.XRAY Attending Dr: Kendell Vaughn MD Ordering Physician: Kendell Vaughn MD Date of Service: 03/19/25 Procedure(s): XR hip LT min 2V Accession Number(s): [id number] cc: Kendell Vaughn MD EXAMINATION: XR HIP, [...] 03/19/2025 10:50 AM EDT Dictated By: Brennan Hall MD Signed By: <Henri llanes signed by Brennan Garcia MD in OV> 03/19/25 1050 DD/ 1004 TD/TT: 03/19/25 1040 It Service Continuity Supervisor: MEENU Martínez+Micro w/rflx Cul t Reviewed date:03/26/2025 02:28:32 PM Interpretation: Performing Lab:[facility], [address] [place] [phone] Notes/Report: Urine, Clean Catch Color Urine Yellow Appearance Urine Clear PH 6.0 5.0-9.0 Glucose Urine UA Negative Negative mg/dL Urine Blood Trace Negative Specific [place] - Urine 1.015 1.005-1.025 Urine Protein Negative Neg-Trace mg/dL Urine Ketones Negative Negative mg/dL Nitrite Urine Negative Negative Leukocyte Esterase Urine Small (1+) Negative RBC Urine 0-2 0-2 /HPF WBC Urine 0-5 0-5 /HPF Squamous Epithelial Cell Urine 0-2 0-2 /HPF Bacteria Urine None Seen None Seen Hyaline Casts Urine 0-2 0-2 /LPF Blood Urea Nitrogen Reviewed date:04/23/2025 05:22:10 PM Interpretation: Performing Lab:[facility], [address] [place] [phone] Notes/Report: Blood Urea Nitrogen 11 9-16 mg/dL Creatinine Reviewed date:04/23/2025 05:25:36 PM Interpretation: Performing Lab:[address] [address] Notes/Report: Creatinine 0.59 0.5-1.4 mg/dL Estimated Glomerular Filt Rate > 60 Chronic Kidney Disease: Estimated GFR < 60 mL/min/1.73m2 Severe Kidney Disease: Estimated GFR < 15 mL/min/1.73m2 XR lumbar spine 2-3V Reviewed date:03/12/2025 05:04:38 PM Interpretation: Performing Lab: Notes/Report: [address] [address] XRay Report Signed Patient: Tiffanie Friedman MR#: [id number] : 1945 Acct:[id number] Age/Sex: 79 / F ADM Date: 03/10/25 Loc: BLAINE Attending Dr: Kendell Vaughn MD Ordering Physician: Kendell Vaughn MD Date of Service: 03/10/25 Procedure(s): XR lumbar spine 2-3V Accession Number(s): [id number] cc: Kendell Vaughn MD EXAMINATION: XR LUMBOSACRAL [...] 03/12/25 1348 DD/ 1348 TD/TT: 03/10/25 1358 It Service Continuity Supervisor: [place] [address] XRay Report Signed Patient: Tiffanie Friedman MR#: [id number] : 1945 Acct:[id number] Age/Sex: 79 / F ADM Date: 03/10/25 Loc: HO.XRAY Attending Dr: Kendell Vaughn MD Ordering Physician: Kendell Vaughn MD Date of Service: 03/10/25 Procedure(s): XR lum bar spine 2-3V Accession Number(s): [id number] cc: Kendell Vaughn MD EXAMINATION: XR LUMBOSACRAL [...] 01:48 PM EDT RP Dictated By: Brennan Hall MD Signed By: <Electron ically signed by Brennan Garcia MD in OV> 03/12/25 1348 DD/ 1348 TD/TT: 03/10/25 1358 It Service Continuity Supervisor: Urine Culture Reviewed date:08/27/2024 06:47:18 PM Interpretation: Performing Lab:[address] [address] Notes/Report: Urine Culture Report Result Urine Culture < 10,000 cfu/ml Complete Blood Count Auto Di ff Reviewed date:11/24/2024 05:38:48 PM Interpretation: Performing Lab:[address] [address] Notes/Report: White Blood Count 6.7 4.8-10.8 X10*3/uL [...] Panel Reviewed date:11/24/2024 05:24:22 PM Interpretation: Performing Lab:[facility], [address] [place] [phone] Notes/Report: Sodium 140 135-145 mmol/L Potassium 4.3 [...] Antigen Reviewed date:11/24/2024 05:31:30 PM Interpretation: Performing Lab:[facility], [address] [place] [phone] Notes/Report: Carcinoembryonic Antigen 4.40 CEA Reference Range: 93.4% Non-Smokers = 0.0-3.0 ng/mL 95.6% Smokers = 0.0-5.0 ng/mL CEA Methodology: [employer] Al[employer] i Chemiluminescent Microparticle Immunoassay (CMIA) CEA testing can have significant value in monitoring of patients with diagnosed malignancies in whom changing concentrations of CEA are observed. Values obtained with different assay methods cannot be used interchangeably. CT abdomen pelvis w con Reviewed date:12/06/2024 12:28:50 PM Interpretation: Performing Lab: Notes/Report: [address] [address] [address] Scan Report Signed Patient: Tiffanie Friedman MR#: [id number] : 1945 Acct:[id number] Age/Sex: 79 / F ADM Date: 12/05/24 Loc: HO.CT Attending Dr: Mckayla Wang MD Ordering Physician: Mckayla Wang MD Date of Service: 12/05/24 Procedure(s): CT abdomen pelvis w IV con Accession Number(s): [id number] cc: Kendell Vaughn MD; Mckayla Wang MD Report Number: [id number]: Total DLP = 186.00 mGy-cm CLINICAL HISTORY: Colon cancer, surveillance CT abdomen and pelvis with contrast Comparison: CT/[place] - CT ABDOMEN PELVIS WO IV CON [...] OV> 12/05/24 1524 DD/ 1523 TD/TT: 12/05/24 152 It Service Continuity Supervisor: [place] [address] CT Scan Report Signed Patient: Tiffanie Friedman MR#: [id number] : 1945 Acct:[id number] Age/Sex: 79 / F ADM Date: 12/05/24 Loc: HO.CT Attending Dr: Mckayla Wang MD Ordering Physician: Mckayla Wang MD Date of Service: 12/05/24 Procedure(s): CT abd omen pelvis w IV con Accession Number(s): [id number] cc: Kendell Vaughn MD; Mckayla Wang MD Report Number: [id number]: Total DLP = 186.00 mGy-cm CLINICAL HISTORY: Co joseph cancer, surveillance CT abdomen and pelvi s with contrast Comparison: CT/[place] - CT ABDOMEN PELVIS WO IV CON [...] of the bilateral kidneys. 2. Severe fecal rete ntion within the distal colon. This document has be en electronically signed by: Fabi Oliveira MD on 12/05/2024 15:23:40 Dictated By: Fabi Oliveira MD Signed By: <Henri llanes signed by Fabi Oliveira MD in OV> 12/05/24 1524 DD/ 1523 TD/TT: 12/05/24 1523 It Service Continuity Supervisor: Urine Culture Reviewed date:02/11/2025 02:05:42 PM Interpretation: Performing Lab:[facility], [address] [place] [phone] Notes/Report: O:ESCCOL Escherichia coli Urine Culture Quant Urine Culture 50,000 to 100,000 cfu/mL Ampicillin >=32 Cefazolin (Urine) 8 Cefepime <=0.12 Ceftriaxone <=0.25 Ciprofloxacin <=0.06 Gentamicin >=16 Nitrofurantoin <=16 Trimethoprim/Sulfamethox azole >=320 Urine Culture Reviewed date:02/26/2025 06:18:54 PM Interpretation: Performing Lab:[facility], [address] [place] [phone] Notes/Report: Urine Culture Report Result Urine Culture 10,000 to 50,000 cfu/ml Urine Culture Mixed bacterial travis a characteristic of Urine Culture urogenital contamination. Urine Culture Reviewed date:03/19/2025 12:28:52 PM Interpretation: Performing Lab:[facility], [address] [place] [phone] Notes/Report: O:ESCCOL Escherichia coli Urine Culture Quant Urine Culture > 100,000 cfu/mL Ampicillin >=32 Cefazolin (Urine) 8 Cefepime <=0.12 Ceftriaxone <=0.25 Ciprofloxacin <=0.06 Gentamicin >=16 Nitrofurantoin <=16 Trimethoprim/Sulfamethox azole >=320 NM bone scan whole body Reviewed date:03/19/2025 12:29:02 PM Interpretation:03-19-2025 Performing Lab: Notes/Report: [address] [place] [address] Nuclear Medicine Report Signed Patient: IdaliaTiffanie M MR#: [id number] : 1945 Acct:[id number] Age/Sex: 79 / F ADM Date: 03/17/25 Loc: SULEMA Attending Dr: Kendell Vaughn MD Ordering Physician: Kendell Vaughn MD Date of Service: 03/17/25 Procedure(s): NM bone scan whole body Accession Number(s): [id number] cc: Kendell Vaughn MD EXAMINATION: NM BONE [...] 03/17/25 1502 DD/ 1000 TD/TT: 03/17/25 1345 It Service Continuity Supervisor: [address] [address] Nuclear Medicine Report Signed Patient: Tiffanie Friedman MR#: [id number] : 1945 Acct:[id number] Age/Sex: 79 / F ADM Date: 03/17/25 Loc: SULEMA Attending Dr: Kendell Vaughn MD Ordering Physician: Kendell Vaughn MD Date of Service: 03/17/25 Procedure(s): NM bon e scan whole body Accession Number(s): [id number] cc: Kendell Vaughn MD EXAMINATION: NM BONE SCAN WHOLE BODY HISTORY: COMPRESSION FX OF FIFTH LUMBAR VERTEBRA. TECHNIQUE: A total b feroz bone scan was performed following the intravenous administ ration of 20 mCi technetium 99m-MDP. COMPARISON: Comparis on is made with the prior examination dated 11/27/2023. Correlati on is also made with plain films of the lumbar spine dated and cervical spine dated 12/20/2023. FINDINGS: There is a new bandl margarita focus of increased uptake at the L1 vertebral level corresponding to the mild compression fracture seen on plain films. Additional up take at the L3-4 level on the right is unchanged and corresponds to degenerative disc disease. Degenerative uptake in the cervical spine i s unchanged. There is mild increased activity at the shoulders and sternoclavicular joints without change, compatible with osteoarthritis. The remainder of the visualized osseous structures demonstrate a normal distribution of activity. There is normal bilateral renal uptake. N M/NM bone scan whole body IMPRESSION: Bandlike increased u ptake at the L1 vertebral level corresponding to the mild compression fracture seen on plain films. Additional degenerative uptake as described above, without change. Electronically josh d by: Jono Jones MD 03/17/2025 03:02 PM EDT Dictated By: Jono Jones MD Signed By: <Electron ically signed by Jono Jones MD in OV> 03/17/25 1502 DD/ 1000 TD/TT: 03/17/25 1345 It Service Continuity Supervisor: Urine Culture Reviewed date:03/27/2025 12:49:58 PM Interpretation: Performing Lab:[facility], [address] [place] [phone] Notes/Report: Urine Culture Report Result Urine Culture < 10,000 cfu/ml MR lumbar spine wo con Reviewed date:04/02/2025 12:37:47 PM Interpretation: Performing Lab: Notes/Report: [address] [address] Magnetic Resonance Report Signed Patient: Tiffanie Friedman MR#: [id number] : 1945 Acct:[id number] Age/Sex: 79 / F ADM Date: 04/01/25 Loc: HO.MRI Attending Dr: Kendell Vaughn MD Ordering Physician: Kendell Vaughn MD Date of Service: 04/01/25 Procedure(s): MR lumbar spine wo con Accession Number(s): [id number] cc: Kendell Vaughn MD EXAMINATION: MR LUMBAR [...] 04/02/2025 07:18 AM EDT Dictated By: Seng Fox MD Signed By: <Electronically signed by Seng Cornejo MD in OV> 04/02/25 0718 DD/ 1826 TD/TT: 04/01/25 184 It Service Continuity Supervisor: [address] [address] Magnetic Resonance Report Signed Patient: Tiffanie Friedman MR#: [id number] : 1945 Acct:[id number] Age/Sex: 79 / F ADM Date: 04/01/25 Loc: HO.MRI Attending Dr: Kendell Vaughn MD Ordering Physician: Kendell Vaughn MD Date of Service: 04/01/25 Procedure(s): MR lum bar spine wo con Accession Number(s): [id number] cc: Kendell Vaughn MD EXAMINATION: MR LUMBAR SPINE WITH OUT CONTRAST CLINICAL INFORMATION: Disc disease. COMPARISON: January 16, 2024 report ed scoliosis and grade 1 anterolisthesis L3-4 and L4-5 and likely L1-2. TECHNIQUE: MRI of the lumbar sp ine was obtained using routine sequences without contrast. FINDINGS: Last rib-bearing zakiya tebra labeled T12. There is bone marrow STIR signal abnormality throughout the vertebral body of L1 and exten ding into the left pedicle. There is 30% [...] and the neural foramina. L1-2: Broad-based disc bul ging. Facet joint and ligamentum flavum hypertrophy resulting in deformi ty of the thecal sac and reduced AP diameter. Bilateral neuroforam shmuel narrowing. L2-3: Broad-based disc bul ging. Facet joint and ligamentum flavum hypertrophy. Reduced AP diameter of the thecal sac and the neuroforamina. L3-4: Broad-based disc bul ging. Grade 1 anterolisthesis. Facet joint and ligamentum flavum hypertrophy. CSF effacement of the thecal sac and central spinal canal stenosis. Bilateral neuroforamina narrowing, right greater than left li humberto encroaching the neural elements. L4-5: Grade 1 anterolisthe sis. Facet joint and ligamentum flavum hypertrophy. Reduced AP diameter of the thecal sac and the neural foramina abutting the neural elements. L5-S1: No disc herniation. No central spinal canal stenosis. Bilateral neuroforamina narrow ing, left greater than right likely encroaching the exiting nerve roots. Fatty atrophy of the lower lumbar muscles from L3-4 to sacrum. Asymmetric volume lo ss of the right psoas muscle. No prevertebral compartment hematoma, mass or fluid collection. 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 at L1 resulting in [...] Dictated By: Seng Casillas MD Signed By: <Electron ically signed by Seng Cornejo MD in OV> 04/02/25 0718 DD/ 1826 TD/TT: 04/01/25 1848 It Service Continuity Supervisor: MEENU ClnCatch+Micro w/rflx Cul t Reviewed date:04/20/2025 12:45:38 PM Interpretation: Performing Lab:[address] [address] Notes/Report: Urine, Clean Catch Color Urine Yellow Appearance Urine Clear PH 5.5 5.0-9.0 Glucose Urine UA Negative Negative mg/dL Urine Blood Negative Negative Specific [place] - Urine 1.020 1.005-1.025 Urine Protein 30 (1+) Neg-Trace mg/dL Urine Ketones Negative Negative mg/dL Nitrite Urine Negative Negative Leukocyte Esterase Urine Negative Negative RBC Urine 0-2 0-2 /HPF WBC Urine 0-5 0-5 /HPF Squamous Epithelial Cell Urine 0-2 0-2 /HPF Bacteria Urine None Seen None Seen Hyaline Casts Urine 0-2 0-2 /LPF CDiff Gene PCR Reviewed date:04/24/2025 12:46:50 PM Interpretation: Performing Lab:[address] [address] Notes/Report: CDiff Gene PCR NEGATIVE Negative If C. difficile strongly suspected despite one negative test, a second test may be sent vs. empiric treatment for C. difficile infection. Pathology Reviewed date:05/14/2025 08:27:24 PM Interpretation: Performing Lab:[facility], [address] [place] [address] Notes/Report: ------ Name: Silvana Friedman Age/Sex: 79/F : 1945 Unit#: [id number] Attend Dr: Jono Rojo MD Re05/13/25 Status : [facility] Location: [facility] Disch: ------ SPEC : [id number] RECD : 05/13/25 STATUS: JD NORTON NUM: [id number] CHARLES: 05/13/[address] [facility] [address]: Jono Rojo MD ENTERED: 05/13/25-10 33 SP TYPE: Surgical OTHR DR: Kendell Vaughn MD ORDERED: HE Stain/3, Gross Micro L4 Diagnosis Ileocolonic anastomo sis, 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 Clinical History Pre-Op Dx: Personal history of other malignant neoplasm of large intestine Post-Op Dx: Diverticulosis, hemorrhoids Microscopic Description Microscopic sections reviewed. Material Received Anastomosis bx's Gross Description Received in formalin labeled bx's of anastomosis? are three coto-pink irregular and rectangular tissue fragments ranging from 0.2-0.4 cm, submitted in toto in a cassette labeled A. CEDS IHC S/NG Disclaimer NOTE: Unless otherwi se stated, all tissue is formalin-fixed and paraffin-embedded. Some or all of the immunohistochemical tests reported herein may have been developed and their performance characteristics determined by [facility]. They have not been cleared or appr rupinder by the U.S. Food and Drug Administration (FDA). However, the FDA has determined that such clearance or approval is not necessary. This laboratory is certified under the Clinical Laboratory Improvement Amendments of 1988 (CLIA) as qualified to perform high comp lexity clinical laboratory testing. Copies To: Kendell Vaughn MD [facility] [address] [place] [id number] CONTINUED ON NEXT PAGE ------ Name: HamiltonvalentinSilvana weberhakeem Breanna Age/Sex: 79/F : 1945 Unit#: [id number] Attend Dr: Jono Rojo MD Re05/13/25 Status : [facility] Location: [place] Disch: ------ SPEC : [id number] RECD : 05/13/25 STATUS: JD NORTON NUM: [id number] CHARLES: 05/13/[address] [facility] [address]: Jono Rojo MD ENTERED: 05/13/25-10 33 SP TYPE: Surgical OTHR DR: Kendell Vaughn MD ORDERED: HE Stain/3, Gross Micro L4 Copies To: (Continued) Jono Rojo MD [facility] [address] [place] [address] ------ Signed (signature on file) Kathleen Alexandro 05/14/25 1353 ------ END OF REPORT Creatinine GFR POC Reviewed date:05/28/2025 05:06:52 PM Interpretation: Performing Lab:[facility], [address] [place] [phone] Notes/Report: [phone] 0.62 >60 1343 HO.BERCHB Creatinine POC 0.6 0.5-1.4 mg/dL GFR POC > 60 Chronic Kidney Disease: Estimated GFR < 60 mL/min/1.73m2 Severe Kidney Disease: Estimated GFR < 15 mL/min/1.73m2 CT abdomen pelvis w con Reviewed date:05/29/2025 12:33:58 PM Interpretation: Performing Lab: Notes/Report: [address] [place] [address] CT Scan Report Signed Patient: Tiffanie Friedman MR#: [id number] : 1945 Acct:[id number] Age/Sex: 79 / F ADM Date: 05/28/25 Loc: HO.CT Attending Dr: Kendell Vaughn MD Ordering Physician: Kendell Vaughn MD Date of Service: 05/28/25 Procedure(s): CT abdomen pelvis w IV con Accession Number(s): [id number] cc: Kendell Vaughn MD Report Number: [id number]: Total DLP = 187.00 mGy-cm CLINICAL HISTORY: DIARRHEA,ABD PAIN CT abdomen and pelvis with contrast Comparison: None provided Findings: CT abdomen: Emphysematous changes with areas of pulmonary fibrosis within the lung bases. No pleural effusion or pneumothorax. Moderate to severe multilevel degenerative disc disease and degenerative facet disease throughout the visualized portions of the thoracolumbar spine. Age-indeterminate superior endplate L1 compression fracture with approximately 20% height loss. Minor retropulsion of the posterior superior fragment. No definitive adjacent inflammatory stranding. Tsuh-vi-rkdxeyxe convex right thoracolumbar curvature with compensatory convex left mid lumbar curvature. Low-attenuation throughout the liver is indicative of fatty infiltration. No focal hepatic lesion. Main portal vein is patent. Spleen, pancreas, gallbladder, and adrenal glands are unremarkable for acute findings. There is mild hyperplasia of both adrenal glands. Symmetric enhancement of the kidneys without mass or stone disease. Prominent extrarenal pelvis of each kidney without perinephric stranding. High-density enteric contrast material is seen within the stomach, small bowel, and colon. No dilated small bowel is identified. No free fluid or free air. CT pelvis: Large amount of stool throughout the colon. This is seen from the rectum to the cecum. High-density contrast material seen throughout the colon. There is a small bowel containing right inguinal hernia. No obstructive phenomenon seen in association with this. No findings of appendicitis. Presumed pessary device is seen within the upper vagina. Urinary bladder is mildly distended. No free fluid or free air. IMPRESSION: 1. Large amount of stool throughout the colon without findings of obstruction. 2. Small bowel containing right inguinal hernia without obstructive phenomenon. 3. Mixed emphysematous and fibrotic changes within the lung bases. This document has been electronically signed by: Sammy Pizano MD on 05/29/2025 09:15:04 Dictated By: Sammy Pizano MD Signed By: <Electronically signed by Sammy Pizano MD in OV> 05/29/25915 DD/ 4 TD/TT: 05/29/25914 It Service Continuity Supervisor: [address] [address] [address] Scan Report Signed Patient: Tiffanie Friedman MR#: [id number] : 1945 Acct:[id number] Age/Sex: 79 / F ADM Date: 05/28/25 Loc: HO.CT Attending Dr: Kendell Vaughn MD Ordering Physician: Kendell Vaughn MD Date of Service: 05/28/25 Procedure(s): CT abd omen pelvis w IV con Accession Number(s): [id number] cc: Kendell Vaughn MD Report Number: [id number]: Total DLP = 187.00 mGy-cm CLINICAL HISTORY: DIARRHEA,ABD PAIN CT abdomen and pelvi s with contrast Comparison: None provided Findings: CT abdomen: Emphysematous change s with areas of pulmonary fibrosis within the lung bases. No pleural ef fusion or pneumothorax. Moderate to severe multilevel degenerative disc disease and degenerative facet disease throug hout the visualized portions of the thoracolumbar spine. Age-indetermi eduin superior endplate L1 compression fracture with approximately 20% he ight loss. Minor retropulsion of the posterior superior fragment. N o definitive adjacent inflammatory stranding. Olxg-pd-hmzkhsao con vex right thoracolumbar curvature with compensatory convex left mid lumb ar curvature. Low-attenuation thro ughout the liver is indicative of fatty infiltration. No focal hepatic les ion. Main portal vein is patent. Spleen, pancreas, gallbladder, and adrenal glands are unremarkable for acute findings. Ther e is mild hyperplasia of both adrenal glands. Symmetric enhancemen t of the kidneys without mass or stone disease. Prominent extrarenal pelvis of each kidney without perinephric stranding. High-density enteric contrast material is seen within the stomach, small bowel, and colon. No dilated small bowel is identified. No free fluid or free air. CT pelvis: Large amount of stoo l throughout the colon. This is seen from the rectum to the cecum. High-d ensity contrast material seen throughout the colon. There is a small bow el containing right inguinal hernia. No obstructive phenomenon seen in association with this. No findings of appendicitis. Presumed pessary dev ice is seen within the upper vagina. Urinary bladder is m ildly distended. No free fluid or free air. IMPRESSION: 1. Large amount of s tool throughout the colon without findings of obstruction. 2. Small bowel conta ining right inguinal hernia without obstructive phenomenon. 3. Mixed emphysemato us and fibrotic changes within the lung bases. This document has be en electronically signed by: Sammy Pizano MD on 05/29/2025 09:15:04 Dictated By: Sammy Pizano MD Signed By: <Henri llanes signed by Sammy Pizano MD in OV> 05/29/25915 DD/ 4 TD/TT: 05/29/25914 It Service Continuity Supervisor: Reason For Referral Reason Lumbar disc disease [...] Duration) Notes Start Date End Date Status Stool Softener 100 MG 1 tablet as [...] with meals Orally once a day Active PriLOSEC OTC 20 MG 2 tablet 30 minutes before morning meal Orally Once a day Not-Taking Carafate 1 GM 1 tablet on an empty stomach Orally Twice a day Not-Taking Ibuprofen 800 MG 1 TABLET ORALLY THRE E TIMES A DAY for 30 Not-Taking Vitamin C 500 MG as directed Orally Active tiZANidine HCl 2 MG 1 tablet as needed Orally Three times a day Not-Rustam ing Methenamine Hippurate 1 GM 1 tablet Orally Twice a day for 10 day(s) Not-Taking Estradiol 0.1 MG/GM 1 application Vagina l Two times a Week Active Omeprazole 20 MG 1 capsule 30 minutes before morning meal Orally Once a day Active Vitamin D (Cholecalciferol) 25 MCG (1000 UT) 1 capsule Orally Once a day Active Albuterol Sulfate HFA 108 (90 Base) MCG/ACT 2 puff as needed Inhalation every 4 hrs for 30 days 02/16/2023 Active Immunizations Vaccine Route Administration Date Status Comme nts Flu Vaccine IM Intramuscular 07/11/2011 Administered Flu Vaccine IM Intramuscular 07/29/2012 Administered PPSV23 (Pnemovax) Unknown 03/07/2009 Administered Prevnar 13 IM Intramuscular 03/07/2013 Administered Flu Vaccine IM Intramuscular 07/22/2013 Administered Flu Vaccine Unknown 08/27/2014 Administered received at [facility] PPSV23 (Pnemovax) Unknown 08/27/2014 Administered recei erika at [facility] Fluarix Quadrivalent IM Intramuscular 08/09/2015 Administe red Fluarix Quadrivalent IM Intramuscular 08/09/2015 Administe red Fluarix Quadrivalent IM Intramuscular 07/27/2016 Administe red Fluarix Quadrivalent IM Intramuscular 07/30/2017 Administe red TDaP Unknown 01/14/2018 Administered pt was given the vaccine at [facility] in [place] on [facility] Fluarix Quadrivalent IM Intramuscular 07/29/2018 Administe red Fluarix Quadrivalent Unknown 07/11/2019 Administered CV S Shingrix Unknown 07/11/2019 Administered [facility] #1 PPSV23 (Pnemovax) IM Intramuscular 12/15/2019 Administered Shingrix IM Intramuscular 10/20/2019 Administered Given at [facility]. Shingles Unknown 10/20/2019 Administered Influenza High Dose [...] High Dose IM Intramuscular 07/31/2024 Administer ed Influenza High Dose IM Intramuscular 07/20/2025 Administer ed Social History Tobacco Use: Social [...] Problem Status W/U Status Risk Notes Problem 44038852 Age-related osteoporosis without current pathological fracture (M81.0) Active confirmed Problem 066265676 Neuropathy (G62.9) Active confirmed Problem 61942458 Restless leg syn drome (G25.81) Active confirmed Problem 034204729 Reflux esophagit is (K21.00) Active confirmed Problem 06837963 Vitamin D defici ency (E55.9) Active confirmed Problem 13329600 Anxiety (F41.9) Active confirmed Problem Dysphagia (26672340) Dysphagia (R13.10) Active confirmed Problem 520133060 Malignant neopla sm of hepatic flexure (C18.3) Active confirmed Problem 857200857 Other headache syndrome (G44.89) Active confirmed Problem 69131283 Irritable bowel syndrome without diarrhea (K58.9) Active confirmed Problem Disorder of lumbar disc (363642805) Lumbar disc disease (M51.9) Active confirmed Problem 425636899 Gastroesophageal reflux disease without esophagitis (K21.9) Active confirmed Problem 55309989 Osteoporosis (M81.0) Active confirmed Problem 429507292 Abnormal mammogr am of left breast (R92.8) Active confirmed Problem 511876161 PAC (premature a trial contraction) (I49.1) Active confirmed Problem 69987223 Oropharyngeal dysphagia (R13.12) Active confirmed Problem 12354108 Iron deficiency anemia, unspecified iron deficiency anemia type (D50.9) Active confirmed Problem 60143799741372 Pharyngeal dysph agia (R13.13) Active confirmed Problem 846740579 Vaginal bleeding (N93.9) Active confirmed Problem 76153397 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) Active confirmed Problem 005312317 Pure hypercholesterolemia (E78.00) Active confirmed Problem 128331777 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) Active confirmed Problem 18476703 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) Active confirme d Problem Plain X-ray of chest abnormal (finding) (6047326125) Abnormal chest xray (R93.89) Active confirmed Problem 82516972 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 confirmed Problem 701777786 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) Active confirmed Problem 02840915 Senile cataract, unspecified age-related cataract type, unspecified laterality (H25.9) Active confirmed Vital Signs Blood pressure diastolic 54 mm Hg 06/11/2025 mahad ght is down 2 pounds since 04-23-25 Height 59.5 in 06/11/2025 weight is down 2 pounds since 04-23-25 Blood pressure systolic 102 mm Hg 06/11/2025 weig ht is down 2 pounds since 04-23-25 Weight 90 lbs 06/11/2025 weight is down 2 pounds since 04-23-25 BMI 17.87 kg/m2 06/11/2025 weight is down 2 pounds since 04-23-25 Encounters Encounter Location Date Provider Diagnosis Kednell Vaughn MD [address] [place] [address] [id number] 02/23/2025 Kendell Vaughn UTI (urinary tract infection) N39.0 Kendell Vaughn MD [address] [place] [address] [id number] 07/20/2025 Kendell Vaughn Encounter for administration of vaccine Z23 Kendell Vaughn MD [address] [place] [address] [id number] 08/26/2024 Kendell Vaughn Vitamin D deficiency E55.9 ; Pure hypercholesterolemia E78.00 and Iron deficiency anemia, unspecified iron deficiency anemia type D50.9 Kendell Vaughn MD [address] [place] [address] [id number] 09/05/2024 Kendell Bombardier Osteoporosis M81.0 ; Pure hypercholesterolemia E78.00 ; Vitamin D deficiency E55.9 ; Reflux esophagitis K21.00 and Depression screening Z13.31 Kendell Vaughn MD [address] [place] [address] [id number] 02/09/2025 Kendell Salazarer UTI (urinary tract infection) N39.0 Kendell Vaughn MD [address] [place] [address] [id number] 03/05/2025 Kendell Roderick UTI (urinary tract infection) N39.0 Kendell Vaughn MD [address] [place] [address] [id number] 03/09/2025 Kendell Bombardier Compression fracture of fifth lumbar vertebra S32.050A Kendell Vaughn MD [address] [place] [address] [id number] 03/19/2025 Kendell Bombardier Compression fracture of first lumbar vertebra, with routine healing, subsequent encounter S32.010D and UTI symptoms R39.9 Kendell Vaughn MD [address] [place] [address] [id number] 03/26/2025 Kendell Bombardier Lumbar disc disease M51.9 and After-treatment Z51.89 Kendell Vaughn MD [address] [place] [address] [id number] 04/07/2025 Kendell Bombardier Lumbar disc disease M51.9 and Near syncope R55 Kendell Vaughn MD [address] [place] [address] [id number] 04/23/2025 Kendell Bombardier Diarrhea R19.7 ; Abd ominal pain R10.9 and Blood tests prior to treatment or procedure Z01.812 Kendell Vaughn MD [address] [place] [address] [id number] 06/11/2025 Kendell Vaughn 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 Kendell Vaughn MD [address] [place] [address] [id number] 09/01/2024 Kendell Bombardier Osteoporosis M81.0 Kendell Vaughn MD [address] [place] [address] [id number] 03/06/2025 Kendell Vaughn MD [address] [place] [address] [id number] 03/09/2025 Kendell Vaughn MD [address] [place] [address] [id number] 03/10/2025 Kendell Vaughn Lumbar back pain M54 .50 Kendell Vaughn MD [address] [place] [address] [id number] 04/20/2025 Kendell Vaughn Assessments Encounter Date Diagnosis (ICD Code) Assessment Notes Treatment Notes Treatment Clinical Notes Section Notes 02/23/2025 UTI (urinary tract infection) (ICD-10 - N39.0) 07/20/2025 Encounter for administration of vaccine (ICD-10 - Z23) 08/26/2024 Vitamin D deficiency (ICD-10 - E55.9) [...] any disorders. no uti/ order faxed to [facility] dept , pending diagnostic [...] to dr thompson/ MRI orders faxed to [facility] dept 04/07/2025 Lumbar disc disease (ICD-10 - M51.9) referral to dr thompson/Parker alexander is already enterted in system and info faxed to Dr. Yady chang. 04/07/2025 Near syncope (ICD-10 - R55) will check pulse when she feels the light headedness 04/23/2025 Diarrhea (ICD-10 - R19.7) order faxed to [facility] dept , pending diagnostic testing 04/23/2025 Abdominal pain (ICD- 10 - R10.9) pending diagnostic testing 06/11/2025 Fibrosis lung (ICD-1 0 - J84.10) discussed findings of recent CT scan with patient, 09/01/2024 Osteoporosis (ICD-10 - M81.0) 03/10/2025 Lumbar back pain (ICD-10 - M54.50) 08/26/2024 Iron deficiency anem ia, unspecified iron deficiency anemia type (ICD-10 - D50.9) 09/05/2024 Vitamin D deficiency (ICD-10 - E55.9) 03/26/2025 After-treatment (ICD -10 - Z51.89) pending labs 09/05/2024 Reflux esophagitis (ICD-10 - K21.00) 04/23/2025 Blood tests prior to treatment or procedure (ICD-10 - Z01.812) 09/05/2024 Depression screening (ICD-10 - Z13.31) negative screen Plan Of Treatment Pending Test Test Name Order Date Electrocardiogram (EKG) 07/04/2024 Electrocardiogram (EKG) 05/28/2015 Electrocardiogram (EKG) 06/15/2016 CLOSTRIDIUM DIFF TOXIN A&B (C DIFF) 04/12 [...] and Microscopic 03/26/2025 Next Appt Details Provider Name:Kendellbrando Cadena ier, 09/03/2025 07:15:00 AM, [address] [place] [address], [address], [id number], Provider Name:Kendell Cadena ier, 09/10/2025 08:30:00 AM, [address] [place] [address], [place] [address], [place], [place], [phone], Insurance Providers Payer Name Payer Address Payer Phone Subscriber Number Group Number Insured Name Patient Relationship to Insured Coverage Start Date Coverage End Date [employer] [address] [place] [address] [id number] Tiffanie Catalan Self - patient is the insured [employer] [address] [place], [place] [id number] Tiffanie Catalan Self - patient is the insured Medical (General) History Medical History History ICD Code colonoscopy 10/03/2013 and 2 005 negative - no further colonoscopies indicated per Dr. Rojo:12/04/23 colonoscopy pending path. 05/14/25 colonoscopy Rojo pending path pap smear - negative (10/20/2013) blood on underwear. had cysto tizanidine is zanaflex Surgical History Surgery Date(Month/Year) Hammertoe, right fifth toe (Dr. Mcfarlane)
--- OUTSIDE RECORDS SUMMARY | 2025-08-13 12:34 | XMS_ITS | Patient Health Record ---
Author Organization [facility] Address [address] [place] [address] Care Team Providers Care Hvac Service Manager Name Role Phone Roderick GARCIA, Kendell Primary Care Provider Jono Gamboa Unavailable [phone] Allergies Allergen (clinical drug ingredient) Drug/Non Drug Allergy documented on EMR Reaction Allergy Type Onset Date Status erythromycin Erythromycin Unknown Drug Allergy A ctive Codeine Phosphate Unknown Drug Allergy Active Results Component Value Reference Range Notes Pathology Reviewed date:05/31/2025 10:56:31 PM Interpretation: Performing Lab:[facility], [address] [place] [phone] Notes/Report: Reason For Referral No Information Medications Medication [...] Status Risk Notes Problem Iron deficiency anemia (44265418) Iron deficiency anemia (D50.9) Active confirmed Problem 643501195 Gastroesophageal reflux disease, esophagitis presence not specified (K21.9) Active confirmed Problem 16625370 Constipation, unspecified constipation type (K59.00) Active confirmed Problem History of malignant neoplasm of colon (658855071) Personal history of colon cancer (Z85.038) Active confirmed Problem Chronic constipation (826143500) Chronic constipation (K59.09) Active confirmed Problem 90326502 Esophageal dysphagia (R13.19) Active confirmed Problem Primary adenocarcinoma of ascending colon (973314844542121) Primary adenocarcinoma of ascending colon (C18.2) Active confirmed Vital Signs Blood pressure diastolic 00 mm Hg 11/25/2024 Height 58.25 in 11/25/2024 Blood pressure systolic 00 mm Hg 11/25/2024 Weight 91 lbs 11/25/2024 BMI 18.85 kg/m2 11/25/2024 Encounters Encounter Location Date Provider Diagnosis [facility] [address] [place] [address] [id number] 05/13/2025 Jono Rojo [facility] [address] [place] [address] 11/25/2024 Jono Rojo Personal history of colon cancer Z85.038 ; Chronic constipation K59.09 and Gastroesophageal reflux disease, esophagitis presence not specified K21.9 [facility] [address] [place] [id number] 01/08/2025 Jono Rojo [facility] [address] [place] [address] 03/20/2025 Jono Rojo [facility] [address] [place] [address] 04/08/2025 Jono Rojo [facility] [address] [place] [address] 05/28/2025 Jono Rojo Assessments Encounter Date Diagnosis (ICD [...] 08/06/2013 UPPER GI ENDOSCOPY 01/06/2020 COLONOSCOPY 11/25/2024 Insurance Providers Payer Name Payer Address Payer Phone Subscriber Number Group Number Insured Name Patient Relationship to Insured Coverage Start Date Coverage End Date MEDICARE OF [place] [address] [place] [id number] TIFFANIE WATT Self - patient is the insured [employer] CLAIM[employer] [address] [place] [address] [id number] TIFFANIE WATT Self - patient is the insured Medical (General) History Medical History History ICD Code Denies CO,DM,CVA,renal disease Colonoscopy 11-17-2004--internal hemorrhoi ds; neg. flex [...]
--- OUTSIDE RECORDS SUMMARY | 2025-08-13 12:34 | XMS_ITS | Patient Health Record ---
Author Organization [facility] Address [address] [place] [address] Care Team Providers Care Account Liaison Name Role Phone Roderick GARCIA, Kendell Primary Care Provider Ken Gilmore Unavailable [phone] Allergies Allergen (clinical drug ingredient) Drug/Non Drug [...] Problem Acquired hammer toe of right foot (2431027760715493) Other hammer toe(s) (acquired), right foot (M20.41) Active confirmed Problem Localized, primary osteoarthritis of the ankle and/or foot (342844662) Primary osteoarthrit is, right ankle and foot (M19.071) Active confirmed Problem Localized, primary osteoarthritis of the ankle and/or foot (590574104) Primary osteoarthrit is, left ankle and foot (M19.072) Active confirmed Problem Acquired hallux rigidus (7871831) Hallux rigidus, left foot (M20.22) Active confirmed Problem Acquired hallux rigidus (2687800) Hallux rigidus, right foot (M20.21) Active confirmed [...] [employer] [address] [place] [address] [id number] Tiffanie Catalan Self - patient is the insured [facility] [address] [place] [address] [phone] [id number] 1 Tiffanie Catalan Self - patient is the insured Medical (General) History Medical History History ICD Code mumps measles chicken pox Osteoporosis Surgical History Surgery Date(Month/Year) carpal tunnel surgery 2014 HT right 5th 08/12/2015
== END 2025-08-13 10:46 | disposition home or self-care (01) ==
LOC: HO.MAMMO 10:45
PROVIDERS: PCP Internal Medicine; Visit Provider Internal Medicine
DX: Z12.31 Encounter for screening mammogram for malignant neoplasm of breast (principal)
CPT/HCPCS: 77063; 77067

== ENCOUNTER → 2025-08-13 11:30 | Outpatient (BNV) | payer MEDICARE, SELFPAY | PROVIDERS: PCP Internal Medicine; Visit Provider Internal Medicine | DX: Z12.31 Encounter for screening mammogram for malignant neoplasm of breast (principal) | CPT/HCPCS: 77063; 77067 ==

== ENCOUNTER 2025-09-03 10:19 | Outpatient (REF) | payer MEDICARE, SELFPAY ==
[2025-09-03 10:22] LABS: MANUAL DIFF FLAG NO
[2025-09-03 10:31] LABS: Appearance Urine Clear; Glucose Urine UA Negative (Negative); Hematocrit 42.0 % (37.0-47.0); Hemoglobin 13.7 g/dl (12.0-16.0); Imm Gran Abs Auto 0.01 X10*3/uL (0.00-0.03); Imm Gran Pct Auto 0.2 % (0.0-0.4); Lymphocytes Absolute Auto 1.7 X10*3/uL (1.2-4.9); Mean Corpuscular HGB Conc 32.6 g/dl (31.0-35.0); Mean Corpuscular Hemoglobin 29.3 pg (27.0-33.0); Mean Corpuscular Volume 89.9 fL (80.0-98.0); NRBC Abs Auto 0.000 X10*3/uL (0.0-0.012); NRBC Pct Auto 0.0 /100WBC (0.0-0.2); PH 6.0 (5.0-9.0); Platelet Count 249 X10*3/uL (160-400); Red Blood Count 4.67 X10*6/uL (4.20-5.50); Specific Gravity - Urine 1.020 (1.005-1.025); White Blood Count 5.3 X10*3/uL (4.8-10.8)
[2025-09-03 10:51] LABS: Alanine Aminotransferase 12 U/L (0-31); Albumin Level 3.8 g/dL (3.5-5.0); Alkaline Phosphatase 62 U/L (39-117); Anion Gap 10 (12-20); Aspartate Amino Transferase 25 U/L (5-31); Blood Urea Nitrogen 20 mg/dL (9-16); Calcium 8.9 mg/dL (8.4-10.2); Carbon Dioxide 30 mmol/L (22-29); Chloride 105 mmol/L (96-108); Cholesterol 207 mg/dL (<200); Estimated Glomerular Filt Rate > 60; HDL Cholesterol 71 mg/dL (>40); Iron 68 mcg/dL (30-160); Percent Iron Saturation 24 % (15-50); Potassium 4.2 mmol/L (3.3-5.1); Sodium 141 mmol/L (135-145); Total Iron Binding Capacity 288 mcg/dL (228-428); Total Protein 7.0 g/dL (6.5-8.0); Triglycerides 54 mg/dL (<150); Unsaturated Iron Binding 220 ug/dL
== END 2025-09-03 10:20 | disposition home or self-care (01) ==
LOC: HO.LNP 10:19
PROVIDERS: Visit Provider Internal Medicine
DX: E78.00 Pure hypercholesterolemia, unspecified (principal); E55.9 Vitamin D deficiency, unspecified; D50.9 Iron deficiency anemia, unspecified
CPT/HCPCS: 80053; 80061; 81001; 82306; 83540; 85025

== ENCOUNTER 2025-09-28 14:20 | Outpatient (REF) | payer MEDICARE, SELFPAY ==
--- NOTE | ~2025-09-28 | FL_ITS ---
EXAMINATION: Modified Barium Swallow CLINICAL INFORMATION: Dysphagia COMPARISON: None TECHNIQUE: Modified barium swallow was performed under lateral fluoroscopy with patient in standing position. Barium mixed with solids and liquids of different consistencies was administered by the speech pathologist. Examination was recorded in the fluoroscopy suite. FINDINGS: Anterior fusion plate with discectomy C4-5 noted. Persistent laryngeal penetration was present on all liquid consistencies. Aspiration was present on thin and nectar thick liquids to the level of the cords. Persistent piriform sinus pooling was present, with episodic spillover into the glottic region. FLUOROSCOPY TIME: 3 minutes, 6 seconds Number of Spot Images: N/A DOSE AREA PRODUCT: 1339 uGy-m2 (microgray-meter squared) FL/FL Modified Barium Swallow IMPRESSION: 1. Persistent laryngeal penetration on all liquid consistencies. 2. Aspiration to the level of the cords present on thin and nectar thick liquids. Please refer to the full speech pathology report to follow for further detail. Electronically signed by: Brennan Garcia MD 09/28/2025 04:23 PM JERICHO SHAH
== END 2025-09-28 14:21 | disposition home or self-care (01) ==
LOC: HO.XRAY 14:20
PROVIDERS: Visit Provider Internal Medicine
DX: R13.10 Dysphagia, unspecified (principal)
CPT/HCPCS: 74230

== ENCOUNTER → 2025-09-28 14:49 | Outpatient (BNV) | payer MEDICARE, SELFPAY | PROVIDERS: Visit Provider Radiology Diagnostic Radiology | DX: R13.10 Dysphagia, unspecified (principal) | CPT/HCPCS: 74230 ==

== ENCOUNTER 2025-11-09 09:31 | Outpatient (REF) | payer MEDICARE, SELFPAY ==
--- OUTSIDE RECORDS SUMMARY | 2024-09-25 06:20 | XMS_ITS ---
Author Organization [facility] Address [address] [place] [phone] Care Team Providers Care Bench Patternmaker Metal Name Role Phone Roderick GARCIA, Kendell Primary Care Provider Jono Gamboa [phone] REASON FOR VISIT screening colonoscopy/rectal pressure, hx colon cancer Encounters Encounter Location Date Provider Diagnosis [facility] [address] [facility] [address] [facility] [address] [place] [phone] 09/25/2024 Jono Rojo Plan Of Treatment No Information Progress Notes * EMIR MCNAMARAEDOB:[birth year] (80 yo F)Acc No.[id number]:09/25/2024 Progress Notes Patient: Yasmine BEANANURADHAMICHIKRIS Provider: Nancy Rojo MD :1945 A ge:79 Y S ex:Female Date:09/25/2024 Address:[address] [place], [place] [phone] Pcp:Kendell Vaughn MD Subjective: * Chief Complaints: * S creening colonoscopy/rectal pressure, hx colon cancer * The named appointment provid er may or may not be the originator of this progress note, and it is not deemed complete until electronically signed by the appointment provider. Sign off status: Pending * Provider: Nancy Rojo MD Date: 11/25/2023 Generated for Printi ng/Faxing/eTransmitting on: 10:07 AM EST
--- OUTSIDE RECORDS SUMMARY | 2025-01-07 09:40 | XMS_ITS ---
Author Organization [facility] Address [address] [place] [phone] Care Team Providers Care Education And Development Manager Name Role Phone Kendell Vaughn MD Primary Care Provider Jono Gamboa [phone] REASON FOR VISIT colon screening Encounters Encounter Location Date Provider Diagnosis [facility] [address] [place] [phone] 01/07/2025 Jono Rojo Plan Of Treatment No Information Progress Notes * EMIR MCNAMARAEDOB:[birth year] (80 yo F)Acc No.[id number]:01/07/2025 Progress Notes Patient: Yasmine CruzCONNOR KRIS Provider: Nancy Rojo MD :1945 A ge:79 Y S ex:Female Date:01/07/2025 Address:[address] [place], [place] [phone] Pcp:Kendell Vaughn MD Subjective: * Chief Complaints: * C olon screening * The named appointment provid er may or may not be the originator of this progress note, and it is not deemed complete until electronically signed by the appointment provider. Sign off status: Pending * Provider: Nancy Rojo MD Date: 0 01/07/2025 Generated for Donavani rekha/Famoirag/eTransmitting on: 1 10:05 AM EST
--- OUTSIDE RECORDS SUMMARY | 2025-04-20 05:07 | XMS_ITS ---
Author Organization Kendell Vaughn MD Address [address] [place] [phone] Care Team Providers Care School Bus Inspector Name Role Phone Kendell Vaughn Primary Care Provider [phone] REASON FOR VISIT ER Encounters Encounter Location Date Provider Diagnosis Kendell Vaughn MD [address] [place], [place] [phone] 04/20/2025 Kendell Vaughn Plan Of Treatment Next Appt Details Provider Name:Kendell rodriguez, 03/08/2026 09:00:00 AM, [address], [address], [place], [place], [phone], Provider Name:Kendell rodriguez, 2026 07:30:00 AM, [address], [address], [place], [place], [phone], Provider Name:Kendell Cadena ier, 09/13/2026 10:30:00 AM, [address] [facility], [address], [place], [place], [phone], Progress Notes * Tiffanie MCNAMARA MDOB:12/1944 (79 yo F)Acc No.[id number]:04/20/2025 Patient: Tiffanie COTA :1945 A ge:79 Y S ex:Female Address: [address], [place] [address] * true * Date: Generated for Devorah da silva/Chapito/Elleransmitting on: 10:05 AM EST
--- OUTSIDE RECORDS SUMMARY | 2025-04-23 07:45 | XMS_ITS ---
Author Organization Kendell Vaughn MD Address [address] [place], [place] [id number] Care Team Providers Care Hitch Technician Name Role Phone Kendell Vaughn Primary Care Provider [phone] Allergies Allergen (clinical drug ingredient) Drug/Non Drug Allergy documented on EMR Reaction Allergy Type Onset Date Status codeine Codeine Sulfate gi upset Drug Allergy A ctive sulfamethoxazole / trimethoprim Bactrim DS heart palpitations Drug Allergy Active erythromycin erythromycin (uncoded) gi upset Allergy Active Results Component Value Reference Range Notes Blood Urea Nitrogen Reviewed date:04/23/2025 05:22:10 PM Interpretation: Performing Lab:[facility], [address] [place] [phone] Notes/Report: Blood Urea Nitrogen 11 9-16 mg/dL Creatinine Reviewed date:04/23/2025 05:25:36 PM Interpretation: Performing Lab:[facility], [address] [place] [phone] Notes/Report: Creatinine 0.59 0.5-1.4 mg/dL Estimated Glomerular Filt Rate > 60 Chronic Kidney Disease: Estimated GFR < 60 mL/min/1.73m2 Severe Kidney Disease: Estimated GFR < 15 mL/min/1.73m2 REASON FOR VISIT NOT WELL AFTER ER VISIT Medications Medication SIG (Take, Route, Frequency, Duration) Notes Start Date End Date Status tiZANidine HCl 2 MG 1 tablet as needed Orally Three times a day Not-Rustam ing Ibuprofen 800 MG 1 TABLET ORALLY THRE E TIMES A DAY for 30 Not-Taking PriLOSEC OTC 20 MG 2 tablet 30 minutes before morning meal Orally Once a day Not-Taking Ativan 0.5 MG 1 tablet as needed Orally Twice a day 06/15/2015 Not-Taking Methenamine Hippurate 1 GM 1 tablet Orally Twice a day for 10 day(s) Not-Taking Vitamin D (Cholecalciferol) 25 MCG (1000 UT) 1 capsule Orally Once a day Active Omeprazole 20 MG 1 capsule 30 minutes before morning meal Orally Once a day Active Estradiol 0.1 MG/GM 1 application Vagina l Two times a Week Active Calcium 600 MG 1 tablet with meals Orally once a day Active PARoxetine HCl 10 MG TAKE 1 TABLET BY SD UT EVERY DAY IN THE MORNING for 90 Active Vitamin C 500 MG as directed Orally Active Carafate 1 GM 1 tablet on an empty stomach Orally Twice a day Active Cranberry 405 MG 1 capsule with meals Orally Twice a day Active Stool Softener 100 MG 1 tablet as needed Orally three times a day Active Albuterol Sulfate HFA 108 (90 Base) MCG/ACT 2 puff as needed Inhalation every 4 hrs 02/16/2023 Active Vital Signs Blood pressure systolic 88 mm Hg 04/23/20 25 Blood pressure diastolic 56 mm Hg 025 Height 59.5 in 04/23/2025 Weight 92 lbs 04/23/2025 BMI 18.27 kg/m2 04/23/2025 Encounters Encounter Location Date Provider Diagnosis Kendell Vaughn MD [address] [facility] [address] [place], [place] [phone] 04/23/2025 Kendell Vaughn Diarrhea R19.7 ; Abdominal pain R10.9 and Blood tests prior to treatment or procedure Z01.812 Assessments Encounter Date Diagnosis (ICD Code) Assessment Notes Treatment Notes Treatment Clinical Notes Section Notes 04/23/2025 Diarrhea (ICD-10 - R19.7) order faxed to [facility] , pending diagnostic testing 04/23/2025 Abdominal pain (ICD-10 - R10.9) pending diagnostic testing 04/23/2025 Blood tests prior to treatment or procedure (ICD-10 - Z01.812) Plan Of Treatment Treatment Notes Assessment Notes Diarrhea order faxed to [facility] , pending diagnostic testing Abdominal pain pending diagnostic t esting Pending Test Test Name Order Date CLOSTRIDIUM DIFF TOXIN A&B (C DIFF) 04/12 CT ABD & PELVIS WITH CONTRAST 04/23/2025 Next Appt Details Follow Up: after ct, Reason: Provider Name:Kendell rodriguez, 03/08/2026 09:00:00 AM, [address] [place] [address], [address], [phone], Provider Name:Kendell skinnerr, 2026 07:30:00 AM, [address] [place] [address], [place] [address], [place], [place], [phone], Provider Name:Kendell skinnerr, 09/13/2026 10:30:00 AM, [address] [place] [address], [address], [phone], Progress Notes * Tiffanie MCNAMARA MDOB:12/1944 (79 yo F)Acc No.[id number]:04/23/2025 Progress Notes Patient: Tiffanie COTA Provider: Edin Vaughn MD :1945 A ge:79 Y S ex:Female Date:04/23/2025 Address:[address] [place], [place] [id number] Subjective: * Chief Complaints: * N OT WELL AFTER ER VISIT * HPI: S ymptom(s): patient is a 79 yo female was in er for headache and diarrhea/ still with diarrhea 2 times per day. feeling poorly. headache has gone. has cracking in her head. * ROS: G eneral/Constitutional: Denies C hills. D enies F atigue. D enies F ever. D enies H eadache. E NT: Denies S ore throat. R espiratory: Denies C ough. D enies S hortness of breath at rest. D enies S hortness of breath with exertion. G astrointestinal: Admits A bdominal pain, h as pain all around naval. has fould smelling diarrhea. D enies C onstipation. A dmits D iarrhea. D enies N ausea. D enies R ectal bleeding. * Medical History: * Surgical History: * Hospitalization/Major Diagno stic Procedure: * Medications: T akingCarafate 1 GM Tablet 1 tablet on an empty stomach Orally Twice a day Vitamin C 500 MG Capsule as directed [...] 1 capsule Orally Once a day Taking Carafate 1 GM Tablet 1 tablet on an empty stomach Orally Twice a day Taking Vitamin C 500 MG [...] Objective: * Vitals: H t: 59.5, Wt: 92, BMI:18.27, BP:88/56, Wt-k.73. * Examination: G eneral Examination: GENERAL APPEARANCE: a lert, well hydrated, in no distress, female. HEAD: n ormocephalic. SKIN: g ood turgor. HEART: r egular rate and rhythm, no murmurs, rubs, gallops.? LUNGS: r ales in lower lobes. ABDOMEN: a bnormal with mild diffuse tenderness. Assessment: * Assessment: 1. D iarrhea - R19.7 (Primary) 2 . A bdominal pain - R10.9 3 . B lood tests prior to treatment or procedure - Z01.812 Plan: * Treatment: 2. A bdominal pain I maging: CT ABD & PELVIS WITH CONTRAST Notes: pending diagnostic testing 3. B lood tests prior to treatment or procedure L AB: Blood Urea Nitrogen (Collection Date & Time - 04/23/2025 01:22 PM) L AB: Creatinine (Collection Date & Time - 04/23/2025 01:22 PM) * Procedure Codes: 3 6415 VENIPUNCT, ROUTINE* * Follow Up: a fter ct * * Sign off status: Completed true * Provider: Edin Vaughn MD Date: 0 04/23/2025 Generated for Devorah da silva/Chapito/eTransmitting on: 1 10:06 AM EST History and Physical Notes * HPI (History of Present Illness) Category Sub-Category Detail Notes Category Not es Symptom(s) patient is a 79 yo female was in er for headache and diarrhea/ still with diarrhea 2 times per day. feeling poorly. headache has gone. has cracking in her head Examination Category Sub-Category Detail Notes Category Not es General Examination GENERAL APPEARANCE: alert, w ell hydrated, in no distress, female HEAD: normocephalic HEART: regular rate and rhy thm, no murmurs, rubs, gallops LUNGS: rales in lower lobes ABDOMEN: abnormal with mild d iffuse tenderness SKIN: good turgor
--- OUTSIDE RECORDS SUMMARY | 2025-05-13 04:30 | XMS_ITS ---
Author Organization [facility] Address [address] [place] [address] Care Team Providers Care Earthmoving Labourer Name Role Phone Kendell Vaughn MD Primary Care Provider Jono Gamboa [phone] REASON FOR VISIT personal hx colon ca Encounters Encounter Location Date Provider Diagnosis [facility] Outpatient [address] [place] [id number] 05/13/2025 Jono Rojo Plan Of Treatment No Information Progress Notes * GREYSON MCNAMARAOB:[birth year] (80 yo F)Acc No.[id number]:05/13/2025 COLON WITH MAC Patient: Yasmine KRIS HILTON Provider: Nancy Rojo MD :1945 A ge:79 Y S ex:Female Date:05/13/2025 Address:[address] [place], [place] [phone] Pcp:Kendell Vaughn MD Subjective: * Chief Complaints: * P ersonal hx colon ca Billing Information: * Procedure Codes: * The named appointment provid er may or may not be the originator of this progress note, and it is not deemed complete until electronically signed by the appointment provider. Sign off status: Pending * Provider: Nancy Rojo MD Date: 0 05/13/2025 Generated for Donavani ng/Famoirag/eTransmitting on: 1 10:05 AM EST
--- OUTSIDE RECORDS SUMMARY | 2025-06-11 08:30 | XMS_ITS ---
Author Organization Kendell Vaughn MD Address [address] [place] [phone] Care Team Providers Care Band Attacher Name Role Phone Kendell Vaughn Primary Care Provider [phone] Allergies Allergen (clinical drug ingredient) Drug/Non Drug Allergy documented on EMR Reaction Allergy Type Onset Date Status codeine Codeine Sulfate gi upset Drug Allergy A ctive sulfamethoxazole / trimethoprim Bactrim DS heart palpitations Drug Allergy Active erythromycin erythromycin (uncoded) gi upset Allergy Active REASON FOR VISIT must see Ct abd and pelvis Medications Medication SIG (Take, Route, Frequency, Duration) [...] DAY IN THE MORNING for 90 Active Calcium 600 MG 1 tablet with meals Orally once a day Active Estradiol 0.1 MG/GM 1 application Vagina l Two times a Week Active Omeprazole 20 MG 1 capsule 30 minutes before morning meal Orally Once a day Active Albuterol Sulfate HFA 108 (90 Base) MCG/ACT 2 puff as needed Inhalation every 4 hrs for 30 days 02/16/2023 Active Stool Softener 100 MG 1 tablet as needed Orally three times a day Active Ativan 0.5 MG 1 tablet as needed Orally Twice a day 06/15/2015 Not-Taking Carafate 1 GM 1 tablet on an empty stomach Orally Twice a day Not-Taking Vitamin C 500 MG as directed Orally Active Vital Signs Blood pressure systolic 102 mm Hg 06/11/20 25 Blood pressure diastolic 54 mm Hg 025 Height 59.5 in 06/11/2025 Weight 90 lbs 06/11/2025 BMI 17.87 kg/m2 06/11/2025 weight is down 2 pounds [facility] 04-23-25 Encounters Encounter Location Date Provider Diagnosis Kendell Vaughn MD [address] [place] [address] [place] [phone] 06/11/2025 Kendell Vaughn 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 Assessments Encounter Date Diagnosis (ICD Code) Assessment Notes Treatment Notes Treatment Clinical Notes Section Notes 06/11/2025 Fibrosis lung (ICD-10 - J84.10) discussed findings of recent CT scan with patient, Plan Of Treatment Medication Medication Name Sig Start Date Stop Date Notes Albuterol Sulfate HFA 108 (9 0 Base) MCG/ACT 2 puff as needed Inhalation every 4 hrs for 30 days 02/16/2023 Treatment Notes Assessment Notes Fibrosis lung discussed findings o f recent CT scan with patient, Next Appt Details Provider Name:Kendell rodriguez, 03/08/2026 09:00:00 AM, [address], [address], [place], [place], [phone], Provider Name:Kendell Cadena ier, 2026 07:30:00 AM, [address] [facility], [address], [place], [place], [phone], Provider Name:Kendell Cadena ier, 09/13/2026 10:30:00 AM, [address] [facility], [address], [place], [place], [phone], Progress Notes * Tiffanie MCNAMARA MDOB:12/1944 (79 yo F)Acc No.[id number]:06/11/2025 Patient: Tiffanie COTA Provider: Edin Vaughn MD :1945 A ge:79 Y S ex:Female Date:06/11/2025 Address:[address] [place] [id number] Subjective: * Chief Complaints: * m ust see Ct abd and pelvis * HPI: S ymptom(s): patient is a 79 yo female abd and pelvisfor follow up of CT. * ROS: G eneral/Constitutional: Denies C [place]. [...] Capsule 1 capsule Orally Once a day Not-Taking/PRNCarafate 1 GM Tablet 1 tablet on an empty stomach Orally Twice a day PriLOSEC OTC 20 MG Tablet Delayed Release [...] List reviewed and reconciled with the patientNot-Taking/PRN Carafate 1 GM Tablet 1 tablet on an empty stomach Orally Twice a day Not-Taking/PRN PriLOSEC OTC [...] Objective: * Vitals: H t: 59.5, Wt: 90, BMI:17.87, BP:102/54, Wt-k.82. weight is down 2 pounds since 04-23-25. * Examination: G eneral Examination: GENERAL APPEARANCE: a lert, well hydrated, in no distress.? HEAD: n ormocephalic. SKIN: g ood turgor. HEART: r egular rate and rhythm, no murmurs, rubs, gallops.? LUNGS: f ew heezes but good air movement, clear to auscultation bilaterally. Assessment: * Assessment: 1. F ibrosis lung - J84.10 (Primary) Plan: * Treatment: * Procedure Codes: * * Sign off status: Completed true * Provider: Edin Vaughn MD Date: 0 06/11/2025 Generated for Donavani rekha/Chapito/eTransmitting on: 10:05 AM EST History and Physical Notes * HPI (History of Present Illness) Category Sub-Category Detail Notes Category Not es Symptom(s) patient is a 79 yo female abd and pelvisfor follow up of CT Examination Category Sub-Category Detail Notes Category Not es General Examination GENERAL APPEARANCE: alert, w ell hydrated, in no distress HEAD: normocephalic HEART: regular rate and rhy thm, no murmurs, rubs, gallops LUNGS: few heezes but good air movement, clear to auscultation bilaterally SKIN: good turgor
--- OUTSIDE RECORDS SUMMARY | 2025-06-22 02:30 | XMS_ITS ---
Author Organization [facility] Address [address] [place] [address] Care Team Providers Care Mail Courier Name Role Phone Kendell Vaughn MD Primary Care Provider Jono Gamboa [phone] REASON FOR VISIT personal hx colon ca Encounters Encounter Location Date Provider Diagnosis [facility] Outpatient [address] [place] [phone] 06/22/2025 Jono Rojo Plan Of Treatment No Information Progress Notes * EMIR MCNAAMRAEDOB:[birth year] (80 yo F)Acc No.[id number]:06/22/2025 COLON WITH MAC Patient: Yasmine KRIS HILTON Provider: Nancy Rojo MD :1945 A ge:79 Y S ex:Female Date:06/22/2025 Address:[address] [place] [address], [id number] Pcp:Kendell Vaughn MD Subjective: * Chief Complaints: * P ersonal hx colon ca * The named appointment provid er may or may not be the originator of this progress note, and it is not deemed complete until electronically signed by the appointment provider. Sign off status: Pending * Provider: Nancy Rojo MD Date: 0 06/22/2025 Generated for Donavani ng/Famoirag/eTransmitting on: 1 10:05 AM EST
--- OUTSIDE RECORDS SUMMARY | 2025-07-20 05:00 | XMS_ITS ---
Author Organization Kendell Vaguhn MD Address [address] [place] [phone] Care Team Providers Care Regulatory Attorney Name Role Phone Roderick Kendell Primary Care Provider REASON FOR VISIT HDF Immunizations Vaccine Route Administration Date Status Comme nts Influenza High Dose IM Intramuscular 07/20/2025 Administer ed Encounters Encounter Location Date Provider Diagnosis Kendell Vaughn MD [address] [place] [phone] 07/20/2025 Kendell Vaughn Encounter for administration of vaccine Z23 Assessments Encounter Date Diagnosis (ICD Code) Assessment Notes Treatment Notes Treatment Clinical Notes Section Notes 07/20/2025 Encounter for administration of vaccine (ICD-10 - Z23) Plan Of Treatment Next Appt Details Provider Name:Kendell Cadena ier, 03/08/2026 09:00:00 AM, [address], [address], [place], [place], [phone], Provider Name:Kendell Cadena ier, 2026 07:30:00 AM, [address], [address], [place], [phone], Provider Name:Kendell Cadena ier, 09/13/2026 10:30:00 AM, [address], [address], [place], [place], [phone], Progress Notes * Tiffanie MCNAMARA MDOB:12/1944 (80 yo F)Acc No.[id number]:07/20/2025 Progress Note Patient: Yasmine NancyVANHARINI Tiffanie M Provider: Edin Vaughn MD :1945 A ge:79 Y S ex:Female Date:07/20/2025 Address:[address] [place], [place] [phone] Subjective: * Chief Complaints: * 1 . HDF. * Medical History: Objective: * Vitals: Assessment: * Assessment: 1. E ncounter for administration of vaccine - Z23 (Primary) Plan: * Treatment: * Immunizations: Influenza High Dose : 0.5 mL (Dose No:1) (Route: Intramuscular) given by Diana Patiño , Office Staff on Right Deltoid * Procedure Codes: 9 0662 FLU VACC PRSV FREE INC ANTIG, G0008 ADMN FLU VAC NO FEE SCHED SAME DAY * * The named appointment provid er may or may not be the originator of this progress note, and it is not deemed complete until electronically signed by the appointment provider. Sign off status: Pending * Provider: Edin Vaughn MD Date: 0 07/20/2025 Generated for Devorah da silva/Chapito/Carlyitting on: 10:05 AM EST
--- OUTSIDE RECORDS SUMMARY | 2025-09-03 02:15 | XMS_ITS ---
Author Organization Kendell Vaughn MD Address [address] [place] [phone] Care Team Providers Care [employer] Psychologist Name Role Phone Kendell Vaughn Primary Care Provider Results Component Value Reference Range Notes Complete Blood Count Auto Di ff Reviewed date:09/03/2025 12:44:54 PM Interpretation: Performing Lab:[facility], [address] [place] [phone] Notes/Report: White Blood Count 5.3 4.8-10.8 X10*3/uL Red Blood Count 4.67 4.20-5.50 X10*6/uL Hemoglobin 13.7 12.0-16.0 g/dl Hematocrit 42.0 37.0-47.0 % Mean Corpuscular Volume 89.9 80.0-98.0 fL Mean Corpuscular Hemoglobin 29.3 27.0-33.0 pg Mean Corpuscular HGB Conc 32.6 31.0-35.0 g/dl Red Cell Distribution Width 13.2 11.0-16.0 % Platelet Count 249 160-400 X10*3/uL Mean Platelet Volume 11.4 9.4-12.3 fL Neutrophils Percent Auto 52.2 45-73 % Imm Gran Pct Auto 0.2 0.0-0.4 % Lymphocytes Percent Auto 31.4 20-40 % Monocytes Percent Auto 10.5 2-11 % Eosinophils Percent Auto 4.9 0-4 % Basophils Percent Auto 0.8 0-2 % NRBC Pct Auto 0.0 0.0-0.2 /100WBC Neutrophils Absolute Auto 2.8 2.0-8.3 x10*3/u L Imm Gran Abs Auto 0.01 0.00-0.03 X10*3/uL Lymphocytes Absolute Auto 1.7 1.2-4.9 X10*3/u L Monocytes Absolute Auto 0.6 0.1-1.2 X10*3/uL Eosinophils Absolute Auto 0.3 0.0-0.4 X10*3/u L Basophils Absolute Auto 0.0 0.0-0.2 X10*3/uL NRBC Abs Auto 0.000 0.0-0.012 X10*3/uL IRON PROFILE Reviewed date:09/03/2025 12:44:32 PM Interpretation: Performing Lab:[address] [phone] Notes/Report: Iron 68 30-160 mcg/dL Total Iron Binding Capacity 288 228-428 mcg/d L Percent Iron Saturation 24 15-50 % Unsaturated Iron Binding 220 Lipid Panel Reviewed date:09/03/2025 12:44:23 PM Interpretation: Performing Lab:[address] [phone] Notes/Report: Triglycerides 54 <150 mg/dL Desirable Triglyceride: less than 150 mg/dL Borderline High Triglyceride 150-199 mg/dL High Triglyceride: 200-499 mg/dL Very High Triglyceride: greater than or equal to 5OO mg/dL Cholesterol 207 <200 mg/dL Desirable Cholesterol: less than 200 mg/dL Borderline High Cholesterol: 200-239 mg/dL High Cholesterol: greater than 239 mg/dL LDL Cholesterol Calculated 126 <100 mg/dL Desirable LDL: less than 100 mg/dL Near Optimal/Above Optimal LDL: 110-129 mg/dL Borderline High LDL: 130-159 mg/dL High LDL: 160-189 mg/dL Very High LDL: greater than or equal to 190 mg/dL HDL Cholesterol 71 >40 mg/dL Desirable HDL: greater than 40 mg/dL Note: This HDL assay may give artificially low results in patients with liver disease. Vitamin D 25-OH Total Reviewed date:09/03/2025 12:45:02 PM Interpretation: Performing Lab:[address] [phone] Notes/Report: Vitamin D 25-OH Total 77.6 >30 ng/mL Health Based Reference Values* < 20 ng/mL Deficient 20-30 ng/mL Insufficient > 30 ng/mL Sufficient *Josy GILBERT. N Engl J Med. 2007;357:266-280 There is no well-established upper level of normal vitamin D levels. Some laboratories use 50 ng/mL as an upper limit of normal. However, toxicity is patient-dependent and may occur at any level. Careful correlation with the patient's presentation is necessary and, if there is concern for vitamin D toxicity, treatment should be considered irrespective of the serum level. Care must be taken in interpreting Vitamin D results from different laboratories and methodologies. Published data demonstrated that results from patients undergoing hemodialysis may show a negative bias when tested with various automated 25-OH vitamin D assays when compared to LC-MS/MS. When testing samples from patients whose predominant form of Vitamin D is Vitamin D2, such as patients receiving Vitamin D2 supplementation, results that are subtherapeutic should be confirmed with another method such as LC-MS/MS. UA ClnCatch+Micro w/rflx Cul t Reviewed date:09/03/2025 07:57:26 PM Interpretation: Performing Lab:[address] [phone] Notes/Report: Urine, Clean Catch Color Urine Yellow Appearance Urine Clear PH 6.0 5.0-9.0 Glucose Urine UA Negative Negative mg/dL Urine Blood Negative Negative Specific Neligh - Urine 1.020 1.005-1.025 Urine Protein Negative Neg-Trace mg/dL Urine Ketones Negative Negative mg/dL Nitrite Urine Negative Negative Leukocyte Esterase Urine Negative Negative RBC Urine 0-2 0-2 /HPF WBC Urine 0-5 0-5 /HPF Squamous Epithelial Cell Urine 0-2 0-2 /HPF Bacteria Urine None Seen None Seen Hyaline Casts Urine 0-2 0-2 /LPF REASON FOR VISIT FASTING LABS Encounters Encounter Location Date Provider Diagnosis Kendell Vaughn MD [address] [place] [phone] 09/03/2025 Kendell Vaughn Vitamin D deficiency E55.9 ; Pure hypercholesterolemia E78.00 and Iron deficiency anemia, unspecified iron deficiency anemia type D50.9 Assessments Encounter Date Diagnosis (ICD Code) Assessment Notes Treatment Notes Treatment Clinical Notes Section Notes 09/03/2025 Vitamin D deficiency (ICD-10 - E55.9) 09/03/2025 Pure hypercholesterolemia (ICD-10 - E78.00) 09/03/2025 Iron deficiency anem ia, unspecified iron deficiency anemia type (ICD-10 - D50.9) Plan Of Treatment Pending Test Test Name Order Date Comprehensive Vernon. Panel Fast Next Appt Details Provider Name:Kendell rodriguez, 03/08/2026 09:00:00 AM, [address] [place] [address], [phone], Provider Name:Kendell rodriguez, 2026 07:30:00 AM, [address] [place] [address], [phone], Provider Name:Kendell skinnerr, 09/13/2026 10:30:00 AM, [address] [place] [address], [phone], Progress Notes * Tiffanie MCNAMARA MDOB:12/1944 (80 yo F)Acc No.[id number]:09/03/2025 Progress Note Patient: Tiffanie COTA Provider: Edin Vaughn MD :1945 A ge:80 Y S ex:Female Date:09/03/2025 Address:[address] [place] [address], [place], [phone] Subjective: * Chief Complaints: * 1 . FASTING LABS. * Medical History: Objective: * Vitals: Assessment: * Assessment: 1. V itamin D deficiency - E55.9 (Primary) 2 . P ure hypercholesterolemia - E78.00 3 . I eric deficiency anemia, unspecified iron deficiency anemia type - D50.9 Plan: * Treatment: 2. P ure hypercholesterolemia L AB: Comprehensive Vernon. Panel Fast L AB: Complete Blood Count Auto Diff (Collection Date & Time - 09/03/2025 07:15 AM) L AB: IRON PROFILE (Collection Date & Time - 09/03/2025 07:15 AM) L AB: Lipid Panel (Collection Date & Time - 09/03/2025 07:15 AM) L AB: Vitamin D 25-OH Total (Collection Date & Time - 09/03/2025 07:15 AM) L AB: UA ClnCatch+Micro w/rflx Cult (Collection Date & Time - 09/03/2025 07:15 AM) 3. I eric deficiency anemia, unspecified iron deficiency anemia type L AB: Comprehensive Vernon. Panel Fast L AB: Complete Blood Count Auto Diff (Collection Date & Time - 09/03/2025 07:15 AM) L AB: IRON PROFILE (Collection Date & Time - 09/03/2025 07:15 AM) L AB: Lipid Panel (Collection Date & Time - 09/03/2025 07:15 AM) L AB: Vitamin D 25-OH Total (Collection Date & Time - 09/03/2025 07:15 AM) L AB: UA ClnCatch+Micro w/rflx Cult (Collection Date & Time - 09/03/2025 07:15 AM) * Procedure Codes: 3 6415 VENIPUNCT, ROUTINE* * * The named appointment provid er may or may not be the originator of this progress note, and it is not deemed complete until electronically signed by the appointment provider. Sign off status: Pending * Provider: Edin Vaughn MD Date: 1 Generated for Devorah da silva/Chapito/Carlyitting on: 1 10:06 AM EST
--- OUTSIDE RECORDS SUMMARY | 2025-09-10 03:30 | XMS_ITS ---
Author Organization Kendell Vaughn MD Address [address] [place] [phone] Care Team Providers Care Oncology Pharmacist Name Role Phone Kendell Vaughn Primary Care Provider Allergies Allergen (clinical drug ingredient) Drug/Non Drug Allergy documented on EMR Reaction Allergy Type Onset Date Status codeine Codeine Sulfate gi upset Drug Allergy A ctive sulfamethoxazole / trimethoprim Bactrim DS heart palpitations Drug Allergy Active erythromycin erythromycin (uncoded) gi upset Allergy Active Results Component Value Reference Range Notes Occult Blood, Stool, Guaiac Reviewed date:09/10/2025 10:15:20 AM Interpretation:Negative Performing Lab: Notes/Report: Negative Occult Blood, Stool, Guaiac Neg Reason For Referral Reason Dysphagia, oral phas e Diagnosis 1 Dysphagia, oral phas e (R13.11) Referral Organization Kendell Vaughn MD Referring Provider First Name Kendell Referring Provider Last Name Roderick Referring Provider Speciality Internal M edicine Referred Provider [facility] er, Speech and Hearing Referred Provider Specialty Unknown General Notes Yamile Bennett 1 09:19:45 AM >referral info faxed, Yamile Bennett 09/11/2025 09:33:23 AM >not using this referral patient will need to have a BA swallow done instead Referral Priority Routine REASON FOR VISIT review labs Medications Medication SIG (Take, Route, Frequency, Duration) Notes Start Date End Date Status Omeprazole 20 MG 1 capsule 30 minutes before morning meal Orally Once a day Active Ativan 0.5 MG 1 tablet as needed Orally Twice a day 06/15/2015 Not-Taking Methenamine Hippurate 1 GM 1 tablet Orally Twice a day for 10 day(s) Not-Taking Albuterol Sulfate HFA 108 (90 Base) MCG/ACT 2 puff as needed Inhalation every 4 hrs 02/16/2023 Active Vitamin D (Cholecalciferol) 25 MCG (1000 UT) 1 capsule Orally Once a day Active Carafate 1 GM 1 tablet on an empty stomach Orally Twice a day Not-Taking Estradiol 0.1 MG/GM 1 application Vagina l Two times a Week Active tiZANidine HCl 2 MG 1 tablet as needed Orally Three times a day Not-Rustam ing Ibuprofen 800 MG 1 TABLET ORALLY THRE E TIMES A DAY for 30 Not-Taking PriLOSEC OTC 20 MG 2 tablet 30 minutes before morning meal Orally Once a day Not-Taking Calcium 600 MG 1 tablet with meals Orally once a day Active PARoxetine HCl 10 MG TAKE 1 TABLET BY [facility] EVERY DAY IN THE MORNING for 90 Active Cranberry 405 MG 1 capsule with meals Orally Twice a day Active Stool Softener 100 MG 1 tablet as needed Orally three times a day Not-Rustam ing Vitamin C 500 MG as directed Orally Active Social History Tobacco Use: Social History [...] Problem Status W/U Status Risk Notes Problem Oral phase dysphagia (155125520) Dysphagia, oral phase (R13.11) Active confirmed Vital Signs Blood pressure systolic 120 mm Hg 09/10/20 25 Blood pressure diastolic 62 mm Hg 025 Height 59.5 in 09/10/2025 Weight 89 lbs 09/10/2025 BMI 17.67 kg/m2 09/10/2025 Encounters Encounter Location Date Provider Diagnosis Kendell Vaughn MD [address] [place] [phone] 09/10/2025 Kendell Vaughn Dysphagia, oral phas e R13.11 ; Interstitial pulmonary fibrosis J84.10 ; Vitamin D deficiency E55.9 ; Gastroesophageal reflux disease without esophagitis K21.9 ; Pure hypercholesterolemia E78.00 ; Iron deficiency anemia, unspecified iron deficiency anemia type D50.9 ; Colon cancer screening Z12.11 and Depression screen Z13.31 Assessments Encounter Date Diagnosis (ICD Code) Assessment Notes Treatment Notes Treatment Clinical Notes Section Notes 09/10/2025 Dysphagia, oral phas e (ICD-10 - R13.11) [facility] to [facility] 09/10/2025 Interstitial pulmona ry fibrosis (ICD-10 - J84.10) is a little more short of breath. will continue to monitor 09/10/2025 Vitamin D deficiency (ICD-10 - E55.9) stable, will continue current regiment 09/10/2025 Gastroesophageal ref lux disease without esophagitis (ICD-10 - K21.9) stable, will continue current regiment 09/10/2025 Pure hypercholesterolemia (ICD-10 - E78.00) stable, will continue current regiment 09/10/2025 Iron deficiency anem ia, unspecified iron deficiency anemia type (ICD-10 - D50.9) doing well 09/10/2025 Colon cancer screeni ng (ICD-10 - Z12.11) guaiac negative 09/10/2025 Depression screen (ICD-10 - Z13.31) negative screen Plan Of Treatment Medication Medication Name Sig Start Date Stop Date Notes Omeprazole 20 MG 1 capsule 30 minutes before morning meal Orally Once a day Albuterol Sulfate HFA 108 (9 0 Base) MCG/ACT 2 puff as needed Inhalation every 4 hrs 02/16/2023 Vitamin D (Cholecalciferol) 25 MCG (1000 UT) 1 capsule Orally Once a day Treatment Notes Assessment Notes Dysphagia, oral phase referal to the [facility] Interstitial pulmonary fibrosis is a lit tle more short of breath. will continue to monitor Vitamin D deficiency stable, will contin ue current regiment Gastroesophageal reflux dise ase without esophagitis stable, will continue current regiment Pure hypercholesterolemia stable, will c ontinue current regiment Iron deficiency anemia, unsp ecified iron deficiency anemia type doing well Colon cancer screening guaiac negative Depression screen negative screen Referrals Referral Date Details 09/10/2025 09/10/2025, Dysphagi a, oral phase Next Appt Details Follow Up: 6 Months, Reason: Provider Name:Kendell rodriguez, 03/08/2026 09:00:00 AM, [address] [place] [address], [address], [phone], Provider Name:Kendell rodriguez, 2026 07:30:00 AM, [address] [place] [address], [address], [phone], Provider Name:Kendell rodriguez, 09/13/2026 10:30:00 AM, [address] [place] [address], [address], [phone], Progress Notes * Tiffanie MCNAMARA MDOB:12/1944 (80 yo F)Acc No.[id number]:09/10/2025 Patient: Tiffanie COTA Provider: Edin Vaughn MD :1945 A ge:80 Y S ex:Female Date:09/10/2025 Address:[address] [place] [address], [phone] Subjective: * Chief Complaints: * R eview labs * HPI: D epression Screening: PHQ-9 L ittle interest or pleasure in doing things N ot at all, F eeling down, depressed, or hopeless N ot at all, T rouble falling or staying asleep, or sleeping too much N ot at all, F eeling tired or having little energy N ot at all, P oor appetite or overeating N ot at all, F eeling bad about yourself or that you are a failure, or have let yourself or your family down N ot at all, T rouble concentrating on things, such as reading the newspaper or watching television N ot at all, M oving or speaking so slowly that other people could have noticed; or the opposite, being so fidgety or restless that you have been moving around a lot more than usual N ot at all, T houghts that you would be better off or of hurting yourself in some way N ot at all, T otal Score 0 . I nterpretation and Intervention D epression Screening Findings N egative, F ollow-Up for Depression : review of PHQ-9 found negative result, no follow-up needed. C ommunication Needs: Communication Needs D oes the patient have a hearing impairment N o, D oes the patient have a vision impairment? Y es, I f yes, what is the vision impairment? G lasses, D oes the patient have a cognition impairment? N o. F all Risk: History H ave you had any falls with injury in the past year? N o, H ave you had two or more falls in the past year? N o. S CRISTINA Questions: SDOH Questions I n the past year have you been worried about losing housing? N o, I n the past year have you or any family members you live with been unable to get any of the following when it was really needed? Check all that apply: N one. S ymptom(s): patient is a 80 yo female here for visit with review of recent labs and follow upof chronic issues h aving trouble with choking on things/ had been to [facility] past for this. * ROS: G eneral/Constitutional: Change in appetite d enies. C hills d enies. F ever d enies. O phthalmologic: Blurred vision d enies. D ischarge d enies. P ain d enies. E NT: Decreased hearing d enies. S ore throat d enies.?Swollen glands d enies. E ndocrine: Cold intolerance d enies. E xcessive thirst d enies. H eat intolerance d enies. W eight loss d enies. R espiratory: Cough d enies. S hortness of breath at rest d enies. S hortness of breath with exertion d enies. W heezing d enies. C ardiovascular: Chest pain at rest d enies. C hest pain with exertion?denies. I rregular heartbeat d enies. S hortness of breath d enies. ? G astrointestinal: Abdominal pain d enies. C hange in bowel habits d enies. D iarrhea d enies. N ausea d enies. R ectal bleeding d enies. V omiting d enies . G enitourinary: Blood in urine d enies. D ifficulty urinating d enies. F requent urination d enies. M usculoskeletal: Painful joints d enies. W eakness d enies. ? S kin: Dry skin d enies. I tching d enies. D enies?Mole(s), changes in moles, new moles or any lesions of concern. D enies P hotosensitivity. R jose d enies. N eurologic: Dizziness d enies. F ainting d enies. H eadache?denies. * Medical History: * Surgical History: * Hospitalization/Major Diagno stic Procedure: * Family History: F ather: 65 yrs, diagnosed with Cancer. M other: 89 yrs. 2 son(s) . . Mother-Angina, Denies mental health/substance abuse family history, Denies mental health/substance abuse family history, No pertinent family medical history, No pertinent family medical history. * Social History: T obacco Use: T obacco Use/Smoking P atient is a f ormer smoker, H ow long has it been since you last smoked? > 10 years, A dditional Findings: Tobacco Non-User F ormer smoker, currently using no form of tobacco. D rugs/Alcohol: A lcohol Screen D id you have a drink containing alcohol in the past year? Y es, H ow often did you have a drink containing alcohol in the past year? M onthly or less (1 point), H ow many drinks did you have on a typical day when you were drinking in the past year? 1 or 2 drinks (0 point), H ow often did you have 6 or more drinks on one occasion in the past year? N ever (0 point), P oints 1 , I nterpretation N egative. M iscellaneous: C affeine: yes, frequency:, 1-2 cups per day. Children: yes. Community involvements: yes. Exercise: yes, walks 2 miles everyday. Housing: owning,. Living with: son. Marital status: . Occupation: unemployed/ retired. Pets: none. * Medications: T akingVitamin C 500 MG Capsule as directed Orally Cranberry 405 MG Capsule 1 capsule with [...] Capsule 1 capsule Orally Once a day Albuterol Sulfate HFA 108 (90 Base) MCG/ACT Aerosol Solution 2 puff as needed Inhalation every 4 hrs Taking Vitamin C 500 MG Capsule as directed Orally Taking Cranberry 405 MG Capsule 1 capsule [...] 1 capsule Orally Once a day Taking Albuterol Sulfate HFA 108 (90 Base) MCG/ACT Aerosol Solution 2 puff as needed Inhalation every 4 hrs Not-Taking/PRNStool Softener 100 MG Tablet 1 tablet as needed Orally three times a day Carafate 1 GM Tablet 1 tablet on [...] List reviewed and reconciled with the patientNot-Taking/PRN Stool Softener 100 MG Tablet 1 tablet as needed Orally three times a day Not-Taking/PRN Carafate 1 GM Tablet 1 tablet on [...] Objective: * Vitals: H t: 59.5, Wt: 89, BMI:17.67, BP:120/62, Wt-k.37. * P ast Orders: L ab:IRON PROFILE (Order Date - 09/03/2025) (Collection Date & Time - 09/03/2025 07:15 AM) Value Reference Range Iron 68 30-160 - mcg/dL Total Iron Binding Capacity 288 228-428 - mc g/dL Percent Iron Saturation 24 15-50 - % Unsaturated Iron Binding 220 - ug/dL L ab:Lipid Panel (Order Date - 09/03/2025) (Collection Date & Time - 09/03/2025 07:15 AM) Value Reference Range Triglycerides 54 <150 - mg/dL Cholesterol 207 H <200 - mg/dL LDL Cholesterol Calculated 126 H <100 - mg/dL HDL Cholesterol 71 >40 - mg/dL L ab:Vitamin D 25-OH Total (Order Date - 09/03/2025) (Collection Date & Time - 09/03/2025 07:15 AM) Value Reference Range Vitamin D 25-OH Total 77.6 >30 - ng/mL L ab:UA ClnCatch+Micro w/rflx Cult (Order Date - 09/03/2025) (Collection Date & Time - 09/03/2025 07:15 AM) Value Reference Range Color Urine Yellow - Appearance Urine Clear - PH 6.0 5.0-9.0 - Glucose Urine UA Negative Negative - mg/dL Urine Blood Negative Negative - Specific Cass - Urine 1.020 1.005-1.025 - Urine Protein Negative Neg-Trace - mg/dL Urine Ketones Negative Negative - mg/dL Nitrite Urine Negative Negative - Leukocyte Esterase Urine Negative Negative - RBC Urine 0-2 0-2 - /HPF WBC Urine 0-5 0-5 - /HPF Squamous Epithelial Cell Urine 0-2 0-2 - /HP F Bacteria Urine None Seen None Seen - Hyaline Casts Urine 0-2 0-2 - /LPF L ab:Comprehensive Met. Panel (Order Date - 09/03/2025) (Collection Date & Time - 09/03/2025 07:15 AM) Value Reference Range Sodium 141 135-145 - mmol/L Bilirubin Total 0.4 0.0-1.0 - mg/dL Aspartate Amino Transferase 25 5-31 - U/L Alanine Aminotransferase 12 0-31 - U/L Total Protein 7.0 6.5-8.0 - g/dL Albumin Level 3.8 3.5-5.0 - g/dL Alkaline Phosphatase 62 39-117 - U/L Potassium 4.2 3.3-5.1 - mmol/L Chloride 105 96-108 - mmol/L Carbon Dioxide 30 H 22-29 - mmol/L Anion Gap 10 L 12-20 - Blood Urea Nitrogen 20 H 9-16 - mg/dL Creatinine 0.62 0.5-1.4 - mg/dL Estimated Glomerular Filt Rate > 60 - Glucose Random 85 60-115 - mg/dL Calcium 8.9 8.4-10.2 - mg/dL L ab:Complete Blood Count Auto Diff (Order Date - 09/03/2025) (Collection Date & Time - 09/03/2025 07:15 AM) Value Reference Range White Blood Count 5.3 4.8-10.8 - X10*3/uL Red Blood Count 4.67 4.20-5.50 - X10*6/uL Hemoglobin 13.7 12.0-16.0 - g/dl Hematocrit 42.0 37.0-47.0 - % Mean Corpuscular Volume 89.9 80.0-98.0 - fL Mean Corpuscular Hemoglobin 29.3 27.0-33.0 - pg Mean Corpuscular HGB Conc 32.6 31.0-35.0 - g/ dl Red Cell Distribution Width 13.2 11.0-16.0 - % Platelet Count 249 160-400 - X10*3/uL Mean Platelet Volume 11.4 9.4-12.3 - fL Neutrophils Percent Auto 52.2 45-73 - % Imm Gran Pct Auto 0.2 0.0-0.4 - % Lymphocytes Percent Auto 31.4 20-40 - % Monocytes Percent Auto 10.5 2-11 - % Eosinophils Percent Auto 4.9 H 0-4 - % Basophils Percent Auto 0.8 0-2 - % NRBC Pct Auto 0.0 0.0-0.2 - /100WBC Neutrophils Absolute Auto 2.8 2.0-8.3 - x10* 3/uL Imm Gran Abs Auto 0.01 0.00-0.03 - X10*3/uL Lymphocytes Absolute Auto 1.7 1.2-4.9 - X10* 3/uL Monocytes Absolute Auto 0.6 0.1-1.2 - X10*3/ uL Eosinophils Absolute Auto 0.3 0.0-0.4 - X10* 3/uL Basophils Absolute Auto 0.0 0.0-0.2 - X10*3/ uL NRBC Abs Auto 0.000 0.0-0.012 - X10*3/uL * Examination: G eneral Examination: GENERAL APPEARANCE: w ell developed, well nourished, in no acute distress. HEAD: n ormocephalic, atraumatic. EYES: p upils equal, round, reactive to light and accommodation, sclera non-icteric. EARS: n ormal. ORAL CAVITY: m ucosa moist. THROAT: c lear. NECK/THYROID: n lamonte supple, full range of motion, no cervical lymphadenopathy, no bruits. SKIN: w arm and dry, no suspicious lesions. HEART: r egular rate and rhythm, S1, S2 normal, no murmurs.? LUNGS: c lear to auscultation bilaterally. ABDOMEN: s oft, nontender, nondistended, bowel sounds present, normal, no organomegaly , no masses palpable. RECTAL EXAM: n ormal tone, no external hemorrhoids, no masses palpable, prostate normal, stool guaiac negative. MALE GENITOURINARY: n ot examined. EXTREMITIES: n o clubbing, cyanosis, or edema. NEUROLOGIC: n onfocal, motor strength normal upper and lower extremities, sensory exam intact. Assessment: * Assessment: 1. D ysphagia, oral phase - R13.11 (Primary) 2 . I nterstitial pulmonary fibrosis - J84.10 3 . V itamin D deficiency - E55.9 4 . G astroesophageal reflux disease without esophagitis - K21.9 5 . P ure hypercholesterolemia - E78.00 6 . I eric deficiency anemia, unspecified iron deficiency anemia type - D50.9 7 . C olon cancer screening - Z12.11 8 . D epression screen - Z13.31 Plan: * Treatment: 2. I nterstitial pulmonary fibrosis Continue Albuterol Sulfate HFA Aerosol Solution, 108 (90 Base) MCG/ACT, 2 puff as needed, Inhalation, every 4 hrs. Notes: is a little more short of breath. will continue to monitor 3. V itamin D deficiency Continue Vitamin D (Cholecalciferol) Capsule, 25 MCG (1000 UT), 1 capsule, Orally, Once a day. Notes: stable, will continue current regiment 4. G astroesophageal reflux disease without esophagitis Continue Omeprazole Capsule Delayed Release, 20 MG, 1 capsule 30 minutes before morning meal, Orally, Once a day. Notes: stable, will continue current regiment 5. P ure hypercholesterolemia Notes: stable, will continue current regiment 6. I eric deficiency anemia, unspecified iron deficiency anemia type Notes: doing well 7. C olon cancer screening L AB: Occult Blood, Stool, Guaiac (Collection Date & Time - 09/10/2025) N egative Value Reference Range O ccult Blood, Stool, Guaiac Neg Notes: guaiac negative??8.?Depression screen? Notes: negative screen?? * Procedure Codes: 8 2270 TEST FOR BLOOD, [id number] Complex e/m visit add on * Follow Up: 6 Months * * Sign off status: Completed true * Provider: Edin Vaughn MD Date: Generated for Donavani rekha/Chapito/Carlyitting on: 10:06 AM EST History and Physical Notes * HPI (History of Present Illness) Category Sub-Category Detail Notes Category Not es Depression Screening PHQ-9 Little inte rest or [...] patient have a vision impairmen t?: Yes If yes, what is the vision impairment?: Glasses Does the patient have a cognition impair ment?: No Examination Category Sub-Category Detail Notes Category Not es General Examination GENERAL APPEARANCE: well dev eloped, well nourished, in no acute distress HEAD: normocephalic, atrau matic EYES: pupils equal, round, reactive to light and accommodation, sclera non-icteric EARS: normal THROAT: clear NECK/THYROID: neck supple, [...] EXTREMITIES: no clubbing, cyanosi s, or edema MALE GENITOURINARY: not examined RECTAL EXAM: normal tone, no exte rnal hemorrhoids, no masses palpable, prostate normal, stool guaiac negative ORAL CAVITY: mucosa moist Consultation Request Notes Referral Date Referring Provider Referred Provider Not es 09/10/2025 [facility], Speech and Hearing Dysphagia, oral phase
--- OUTSIDE RECORDS SUMMARY | 2025-09-10 09:03 | XMS_ITS ---
Author Organization Kendell Vaughn MD Address [address] [place] [phone] Care Team Providers Care Rod Cup Filler Name Role Phone Roderick Kendell Primary Care Provider [phone] REASON FOR VISIT regarding referral Encounters Encounter Location Date Provider Diagnosis Kendell Vaughn MD [address] [place] [phone] 09/10/2025 Kendell Vaughn Dysphagia R13.10 Assessments Encounter Date Diagnosis (ICD Code) Assessment Notes Treatment Notes Treatment Clinical Notes Section Notes 09/10/2025 Dysphagia (ICD-10 - R13.10) Plan Of Treatment Pending Test Test Name Order Date FL barium swallow modified 09/10/2025 Next Appt Details Provider Name:Kendell Cadena ier, 03/08/2026 09:00:00 AM, [address], [address], [place], [place], [phone], Provider Name:Kendell Cadena ier, 2026 07:30:00 AM, [address], [address], [place], [phone], Provider Name:Kendell Cadena ier, 09/13/2026 10:30:00 AM, [address], [address], [place], [phone], Progress Notes * Tiffanie MCNAMARA MDOB:12/1944 (80 yo F)Acc No.[id number]:09/10/2025 Patient: Tiffanie COTA :1945 A ge:80 Y S ex:Female Address:[address] [place] [address], [place] [address] Subjective: * Chief Complaints: * R egarding referral * Medical History: * Surgical History: * Hospitalization/Major Diagno stic Procedure: * Medications: Objective: * Vitals: * Physical Examination: Assessment: * Assessment: 1. D ysphagia - R13.10 Plan: * Treatment: * Procedure Codes: * true * Date: Generated for Devorah da silva/Chapito/eTransmitting on: 10:06 AM EST
--- OUTSIDE RECORDS SUMMARY | 2025-10-06 10:11 | XMS_ITS ---
Author Organization Kendell Vaughn MD Address [address] [place] [phone] Care Team Providers Care Perinatology Physician Name Role Phone Kendell Vaughn Primary Care Provider REASON FOR VISIT refill Medications Medication SIG (Take, Route, Fr equency, Duration) Notes Start Date End Date Status PARoxetine HCl 10 MG TAKE 1 TABLET BY MO UTH EVERY DAY IN THE MORNING Orally Once a day for 90 days Active Encounters Encounter Location Date Provider Diagnosis Kendell Vaughn MD [address] [place] [phone] 10/06/2025 Kendell Vaughn Plan Of Treatment Medication Medication Name Sig Start Date Stop Date Notes PARoxetine HCl 10 MG TAKE 1 TABLET BY MO UTH EVERY DAY IN THE MORNING Orally Once a day for 90 days Next Appt Details Provider Name:Kendell Cadena ier, 03/08/2026 09:00:00 AM, [address] [place] [address], [address] [facility], [place], [phone], Provider Name:Kendell Cadena ier, 2026 07:30:00 AM, [address] [place] [address], [place] [address], [place], [phone], Provider Name:Kendell Cadena ier, 09/13/2026 10:30:00 AM, [address] [place] [address], [address] [facility], [place], [phone], Progress Notes * Tiffanie MCNAMARA MDOB:12/1944 (80 yo F)Acc No.[id number]:10/06/2025 Patient: Tiffanie COTA :1945 A ge:80 Y S ex:Female Address:[address] [place] [address], [place] [address] * Refills Refill PARoxetine HCl Tablet, 10 MG, Orally, 90, TAKE 1 TABLET BY MOUTH EVERY DAY IN THE MORNING, Once a day, 90 days, Refills=5 * true * Date: Generated for Devorah da silva/Chapito/Stevesmitting on: 10:07 AM EST
--- OUTSIDE RECORDS SUMMARY | 2025-10-12 07:15 | XMS_ITS ---
Author Organization Kendell Vaughn MD Address [address] [place] [phone] Care Team Providers Care Bilingual Sales Assistant Name Role Phone Kendell Vaughn Primary Care Provider REASON FOR VISIT Bone Density due Encounters Encounter Location Date Provider Diagnosis Kendell Vaughn MD [address] [place], [place] [phone] 10/12/2025 Kendell Vaughn Plan Of Treatment Next Appt Details Provider Name:Kendell rodriguez, 03/08/2026 09:00:00 AM, [address], [address], [place], [place], [phone], Provider Name:Kendell rodriguez, 2026 07:30:00 AM, [address], [address], [place], [place], [phone], Provider Name:Kendell Cadena jennifer, 09/13/2026 10:30:00 AM, [address], [address], [place], [phone], Progress Notes * Tiffanie MCNAMARA MDOB:12/1944 (80 yo F)Acc No.[id number]:10/12/2025 Patient: Tiffanie COTA :1945 A ge:80 Y S ex:Female Address: [place] [address] * * Date:
--- NOTE | ~2025-11-09 | MM_ITS ---
EXAMINATION: DXA BONE DENSITY AXIAL HISTORY: SCREENING TECHNIQUE: [employer] Dual energy absorptiometry (DEXA) of the lumbar spine, total left hip, and femoral neck was performed. COMPARISON: Comparison is made with the prior examination dated 11/08/2023. FINDINGS: The bone mineral density of the lumbar spine is 1.057 g/cm2, corresponding to a T-score of -1.0, and a Z-score of 1.7. This is indicative of normal bone mineral density. This represents a BMD change of 0.6% compared to the prior exam. This is not statistically significant. The bone mineral density of the left total hip is 0.652 g/cm2, corresponding to a T-score of -2.8, and a Z-score of -0.1. This is indicative of osteoporosis. This represents a BMD change of -8.8% compared to the prior exam. This is statistically significant. The bone mineral density of the left femoral neck is 0.669 g/cm2, corresponding to a T-score of -2.7, and a Z-score of 0.1. This is indicative of osteoporosis. This represents a BMD change of -9.1% compared to the prior exam. MM/XR DEXA axial skeleton IMPRESSION: Based on bone mineral density, and according to World Health Organization (WHO) criteria, the diagnosis is consistent with osteoporosis. Statistically, 68% of repeat scans fall within 1 SD (+/- 0.010 g/cm2 for AP spine L1-L4) and 1 SD (+/- 0.012 g/cm2 for femur total) [employer] is a trademark of the [employer], a World Health Organization (WHO) Collaborating Center. Electronically signed by: Jono Jones MD 11/09/2025 10:09 AM [facility]
--- OUTSIDE RECORDS SUMMARY | 2025-11-09 03:00 | XMS_ITS ---
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 Name Role Phone Kendell Vaughn Primary Care Provider [phone] REASON FOR VISIT U/A Encounters Encounter Location Date Provider Diagnosis Kendell Vaughn MD [address] [place] [phone] 11/09/2025 Kendell Vaughn UTI (urinary tract infection) N39.0 Assessments Encounter Date Diagnosis (ICD Code) Assessment Notes Treatment Notes Treatment Clinical Notes Section Notes 11/09/2025 UTI (urinary tract infection) (ICD-10 - N39.0) Plan Of Treatment Pending Test Test Name Order Date UA ClnCatch+Micro w/rflx Cult 11/09/2025 Next Appt Details Provider Name:Kendell Cadena ier, 03/08/2026 09:00:00 AM, [address], [address], [place], [phone], Provider Name:Kendell Cadena ier, 2026 07:30:00 AM, [address], [address], [place], [phone], Provider Name:Kendell Cadena ier, 09/13/2026 10:30:00 AM, [address], [address], [place], [phone], Progress Notes * Tiffanie MCNAMARA MDOB:12/1944 (80 yo F)Acc No.[id number]:11/09/2025 Progress Note Patient: Yasmien Tiffanie HILTON Provider: Edin Vaughn MD :1945 A ge:80 Y S ex:Female Date:11/09/2025 Address:[address] [place] [id number] Subjective: * Chief Complaints: * 1 . U/A. * Medical History: Objective: * Vitals: Assessment: * Assessment: 1. U TI (urinary tract infection) - N39.0 Plan: * Treatment: * * The named appointment provid er may or may not be the originator of this progress note, and it is not deemed complete until electronically signed by the appointment provider. Sign off status: Pending * Provider: Edin Vaughn MD Date: Generated for Devorah da silva/Chapito/Stevesmitting on: 10:04 AM EST
--- OUTSIDE RECORDS SUMMARY | 2025-11-09 10:06 | XMS_ITS | Patient Health Record ---
Author Organization Kendell Vaughn MD Address [address] [place] [phone] Care Team Providers Care Concierge Name Role Phone Kendell Vaughn Primary Care [...] t Reviewed date:02/24/2025 09:53:03 AM Interpretation: Performing Lab:[facility], [address] [place] [phone] Notes/Report: Urine, Clean Catch Color Urine Yellow Appearance Urine Turbid PH 8.0 5.0-9.0 Glucose Urine UA Negative Negative mg/dL Urine Blood Negative Negative Specific Farner - Urine 1.015 1.005-1.025 Urine Protein Negative [...] ff Reviewed date:09/03/2025 12:44:54 PM Interpretation: Performing Lab:[facility], [address] [place] [phone] Notes/Report: White Blood Count 5.3 4.8-10.8 X10*3/uL [...] 0.0-0.2 /100WBC Neutrophils Absolute Auto 2.8 2.0-8.3 x10*3/uL Imm Gran Abs Auto 0.01 0.00-0.03 X10*3/uL Lymphocytes Absolute Auto 1.7 1.2-4.9 X10*3/uL Monocytes Absolute Auto 0.6 0.1-1.2 X10*3/uL Eosinophils Absolute Auto 0.3 0.0-0.4 X10*3/uL Basophils Absolute Auto 0.0 0.0-0.2 X10*3/uL NRBC Abs Auto 0.000 0.0-0.012 X10*3/uL IRON PROFILE Reviewed date:09/03/2025 12:44:32 PM Interpretation: Performing Lab:[facility], [address] [place] [phone] Notes/Report: Iron 68 30-160 mcg/dL Total Iron Binding Capacity 288 228-428 mcg/dL Percent Iron Saturation 24 15-50 % Unsaturated Iron Binding 220 Lipid Panel Reviewed date:09/03/2025 12:44:23 PM Interpretation: Performing Lab:[facility], [address] [place] [phone] Notes/Report: Triglycerides 54 <150 mg/dL Desirable Triglyceride: [...] Total Reviewed date:09/03/2025 12:45:02 PM Interpretation: Performing Lab:[facility], [address] [place] [phone] Notes/Report: Vitamin D 25-OH Total 77.6 >30 [...] t Reviewed date:09/03/2025 07:57:26 PM Interpretation: Performing Lab:[address] [phone] Notes/Report: Urine, Clean Catch Color Urine Yellow Appearance Urine Clear PH 6.0 5.0-9.0 Glucose Urine UA Negative Negative mg/dL Urine Blood Negative Negative Specific Farner - Urine 1.020 1.005-1.025 Urine Protein Negative Neg-Trace mg/dL Urine Ketones Negative Negative mg/dL Nitrite Urine Negative Negative Leukocyte Esterase Urine Negative Negative RBC Urine 0-2 0-2 /HPF WBC Urine 0-5 0-5 /HPF Squamous Epithelial Cell Urine 0-2 0-2 /HPF Bacteria Urine None Seen None Seen Hyaline Casts Urine 0-2 0-2 /LPF UA ClnCatch+Micro w/rflx Cul t Reviewed date:02/10/2025 09:39:40 AM Interpretation: Performing Lab:[facility], [address] [place] [phone] Notes/Report: Urine, Clean Catch Color Urine Yellow Appearance Urine Cloudy PH 5.5 5.0-9.0 Glucose Urine UA Negative Negative mg/dL Urine Blood Large (3+) Negative Specific Farner - Urine 1.010 1.005-1.025 Urine Protein 30 (1+) Neg-Trace mg/dL Urine Ketones Negative Negative mg/dL Nitrite Urine Negative Negative Leukocyte Esterase Urine Large (3+) Negative RBC Urine >20 0-2 /HPF WBC Urine >50 0-5 /HPF Squamous Epithelial Cell Urine 0-2 0-2 /HPF Bacteria Urine Trace None Seen Hyaline Casts Urine 0-2 0-2 /LPF Urinalysis and Microscopic Reviewed date:03/05/2025 04:52:46 PM Interpretation: Performing Lab:[address] [phone] Notes/Report: Color Urine Yellow Appearance Urine Clear PH 6.5 5.0-9.0 Glucose Urine UA Negative Negative mg/dL Urine Blood Negative Negative Specific Farner - Urine <= 1.005 1.005-1.025 Urine Protein Negative Neg-Trace mg/dL Urine Ketones Negative Negative mg/dL Nitrite Urine Negative Negative Leukocyte Esterase Urine Large (3+) Negative RBC Urine 0-2 0-2 /HPF WBC Urine 11-20 0-5 /HPF Squamous Epithelial Cell Urine 0-2 0-2 /HPF Bacteria Urine None Seen None Seen Hyaline Casts Urine 0-2 0-2 /LPF Urine Culture Reviewed date:03/06/2025 03:39:20 PM Interpretation: Performing Lab:[address] [phone] Notes/Report: Urine Culture Report Result Urine Culture < 10,000 cfu/ml XR sacroiliac joint min 3V Reviewed date:03/19/2025 12:25:53 PM Interpretation: Performing Lab: Notes/Report: [address] [address] XRay Report Signed Patient: Tiffanie Friedman MR#: [id number] : 1945 Acct:[id number] Age/Sex: 79 / F ADM Date: 03/19/25 Loc: BLAINE Attending Dr: Kendell Vaughn MD Ordering Physician: Kendell Vaughn MD Date of Service: 03/19/25 Procedure(s): XR sacroiliac joint min 3V Accession Number(s): [id number] cc: Kendell Vaughn MD EXAMINATION: XR SACROILIAC [...] 03/19/25 1052 DD/ 1025 TD/TT: 03/19/25 1040 Traveling Construction Superintendent: [place] [address] XRay Report Signed Patient: Tiffanie Friedman MR#: [id number] : 1945 Acct:[id number] Age/Sex: 79 / F ADM Date: 03/19/25 Loc: HO.XRAY Attending Dr: Kendell Vaughn MD Ordering Physician: Kendell Vaughn MD Date of Service: 03/19/25 Procedure(s): XR sacroiliac joint min 3V Accession Number(s): [id number] cc: Kendell Vaughn MD EXAMINATION: XR SACROILIAC [...] Dictated By: Brennan Hall MD Signed By: <Electronically signed by Brennan Garcia MD in OV> 03/19/25 1052 DD/ 1025 TD/TT: 03/19/25 1040 Traveling Construction Superintendent: XR hip LT min 2V Reviewed date:03/19/2025 12:26:24 PM Interpretation: Performing Lab: Notes/Report: [address] [address] XRay Report Signed Patient: Tiffanie Friedman MR#: [id number] : 1945 Acct:[id number] Age/Sex: 79 / F ADM Date: 03/19/25 Loc: HO.XRAY Attending Dr: Kendell Vaughn MD Ordering Physician: Kendell Vaughn MD Date of Service: 03/19/25 Procedure(s): XR hip LT min 2V Accession Number(s): [id number] cc: Kendell Vaughn MD EXAMINATION: XR HIP, [...] 03/19/25 1050 DD/ 1004 TD/TT: 03/19/25 1040 Traveling Construction Superintendent: [address] [address] XRay Report Signed Patient: Tiffanie Friedman MR#: [id number] : 1945 Acct:[id number] Age/Sex: 79 / F ADM Date: 03/19/25 Loc: HO.XRAY Attending Dr: Kendell Vaughn MD Ordering Physician: Kendell Vaughn MD Date of Service: 03/19/25 Procedure(s): XR hip LT min 2V Accession Number(s): [id number] cc: Kendell Vaughn MD EXAMINATION: XR HIP, [...] 03/19/25 1050 DD/ 1004 TD/TT: 03/19/25 1040 Traveling Construction Superintendent: MEENU ClnCatch+Micro w/rflx Cul t Reviewed date:03/26/2025 02:28:32 PM Interpretation: Performing Lab:[facility], [address] [place] [phone] Notes/Report: Urine, Clean Catch Color Urine Yellow Appearance Urine Clear PH 6.0 5.0-9.0 Glucose Urine UA Negative Negative mg/dL Urine Blood Trace Negative Specific Farner - Urine 1.015 1.005-1.025 Urine Protein Negative Neg-Trace mg/dL Urine Ketones Negative Negative mg/dL Nitrite Urine Negative Negative Leukocyte Esterase Urine Small (1+) Negative RBC Urine 0-2 0-2 /HPF WBC Urine 0-5 0-5 /HPF Squamous Epithelial Cell Urine 0-2 0-2 /HPF Bacteria Urine None Seen None Seen Hyaline Casts Urine 0-2 0-2 /LPF Blood Urea Nitrogen Reviewed date:04/23/2025 05:22:10 PM Interpretation: Performing Lab:[address] [address] Notes/Report: Blood Urea Nitrogen 11 9-16 mg/dL Creatinine Reviewed date:04/23/2025 05:25:36 PM Interpretation: Performing Lab:[address] [phone] Notes/Report: Creatinine 0.59 0.5-1.4 mg/dL Estimated Glomerular Filt Rate > 60 Chronic Kidney Disease: Estimated GFR < 60 mL/min/1.73m2 Severe Kidney Disease: Estimated GFR < 15 mL/min/1.73m2 Occult Blood, Stool, Guaiac Reviewed date:09/10/2025 10:15:20 AM Interpretation:Negative Performing Lab: Notes/Report: Negative Occult Blood, Stool, Guaiac Neg XR lumbar spine 2-3V Reviewed date:03/12/2025 05:04:38 PM Interpretation: Performing Lab: Notes/Report: [address] [address] XRay Report Signed Patient: Tiffanie Friedman MR#: [id number] : 1945 Acct:[id number] Age/Sex: 79 / F ADM Date: 03/10/25 Loc: BLAINE Attending Dr: Kendell Vaughn MD Ordering Physician: Kendell Vaughn MD Date of Service: 03/10/25 Procedure(s): XR lumbar spine 2-3V Accession Number(s): [id number] cc: Kendell Vaughn MD EXAMINATION: XR LUMBOSACRAL [...] 03/12/25 1348 DD/ 1348 TD/TT: 03/10/25 1358 Traveling Construction Superintendent: [place] [address] XRay Report Signed Patient: Tiffanie Friedman MR#: [id number] : 1945 Acct:[id number] Age/Sex: 79 / F ADM Date: 03/10/25 Loc: HOTOÑO Attending Dr: Kendell Vaughn MD Ordering Physician: Kendell Vaughn MD Date of Service: 03/10/25 Procedure(s): XR lum bar spine 2-3V Accession Number(s): [id number] cc: Kendell Vaughn MD EXAMINATION: XR LUMBOSACRAL [...] 03/12/2025 01:48 PM EDT Dictated By: Brennan Hall MD Signed By: <Henri llanes signed by Brennan Garcia MD in OV> 03/12/25 1348 DD/ 1348 TD/TT: 03/10/25 1358 Traveling Construction Superintendent: Complete Blood Count Auto Di ff Reviewed date:11/24/2024 05:38:48 PM Interpretation: Performing Lab:[facility], [address] [place] [phone] Notes/Report: White Blood Count 6.7 4.8-10.8 X10*3/uL [...] Panel Reviewed date:11/24/2024 05:24:22 PM Interpretation: Performing Lab:[facility], [address] [place] [phone] Notes/Report: Sodium 140 135-145 mmol/L Potassium 4.3 [...] Antigen Reviewed date:11/24/2024 05:31:30 PM Interpretation: Performing Lab:[facility], [address] [place] [phone] Notes/Report: Carcinoembryonic Antigen 4.40 CEA Reference Range: 93.4% Non-Smokers = 0.0-3.0 ng/mL 95.6% Smokers = 0.0-5.0 ng/mL CEA Methodology: Miew Alinity i Chemiluminescent Microparticle Immunoassay (CMIA) CEA testing can have significant value in monitoring of patients with diagnosed malignancies in whom changing concentrations of CEA are observed. Values obtained with different assay methods cannot be used interchangeably. CT abdomen pelvis w con Reviewed date:12/06/2024 12:28:50 PM Interpretation: Performing Lab: Notes/Report: [address] [address] [address] Scan Report Signed Patient: Tiffanie Friedman MR#: [id number] : 1945 Acct:[id number] Age/Sex: 79 / F ADM Date: 12/05/24 Loc: HO.CT Attending Dr: Mckayla Wang MD Ordering Physician: Mckayla Wang MD Date of Service: 12/05/24 Procedure(s): CT abdomen pelvis w IV con Accession Number(s): [id number] cc: Kendell Vaughn MD; Mckayla Wang MD Report Number: [id number]: Total DLP = 186.00 mGy-cm CLINICAL HISTORY: Colon cancer, surveillance CT abdomen and pelvis with contrast Comparison: CT/[place] - CT ABDOMEN PELVIS WO IV CON [...] 12/05/24 1524 DD/ 1523 TD/TT: 12/05/24 1523 Traveling Construction Superintendent: [place] [address] CT Scan Report Signed Patient: Tiffanie Friedman MR#: [id number] : 1945 Acct:[id number] Age/Sex: 79 / F ADM Date: 12/05/24 Loc: HO.CT Attending Dr: Mckayla Wang MD Ordering Physician: Mckayla Wang MD Date of Service: 12/05/24 Procedure(s): CT abd omen pelvis w IV con Accession Number(s): [id number] cc: Kendell Vaughn MD; Mckayla Wang MD Report Number: [id number]: Total DLP = 186.00 mGy-cm CLINICAL HISTORY: Co joseph cancer, surveillance CT abdomen and pelvi s with contrast Comparison: CT/[place] - CT ABDOMEN PELVIS WO IV CON [...] 12/05/24 1524 DD/ 1523 TD/TT: 12/05/24 1523 Traveling Construction Superintendent: Urine Culture Reviewed date:02/11/2025 02:05:42 PM Interpretation: Performing Lab:[facility], [address] [place] [phone] Notes/Report: O:ESCCOL Escherichia coli Urine Culture Quant Urine Culture 50,000 to 100,000 cfu/mL Ampicillin >=32 Cefazolin (Urine) 8 Cefepime <=0.12 Ceftriaxone <=0.25 Ciprofloxacin <=0.06 Gentamicin >=16 Nitrofurantoin <=16 Trimethoprim/Sulfametho xazole >=320 Urine Culture Reviewed date:02/26/2025 06:18:54 PM Interpretation: Performing Lab:[facility], [address] [place] [phone] Notes/Report: Urine Culture Report Result Urine Culture 10,000 to 50,000 cfu/ml Urine Culture Mixed bacterial travis a characteristic of Urine Culture urogenital contamination. Urine Culture Reviewed date:03/19/2025 12:28:52 PM Interpretation: Performing Lab:[address] [address] Notes/Report: O:ESCCOL Escherichia coli Urine Culture Quant Urine Culture > 100,000 cfu/mL Ampicillin >=32 Cefazolin (Urine) 8 Cefepime <=0.12 Ceftriaxone <=0.25 Ciprofloxacin <=0.06 Gentamicin >=16 Nitrofurantoin <=16 Trimethoprim/Sulfametho xazole >=320 NM bone scan whole body Reviewed date:03/19/2025 12:29:02 PM Interpretation:03-19-2025 Performing Lab: Notes/Report: [address] [address] Nuclear Medicine Report Signed Patient: Tiffanie Friedman MR#: [id number] : 1945 Acct:[id number] Age/Sex: 79 / F ADM Date: 03/17/25 Loc: SULEMA Attending Dr: Kendell Vaughn MD Ordering Physician: Kendell Vaughn MD Date of Service: 03/17/25 Procedure(s): NM bone scan whole body Accession Number(s): [id number] cc: Kendell Vaughn MD EXAMINATION: NM BONE [...] 03/17/25 1502 DD/ 1000 TD/TT: 03/17/25 1345 Traveling Construction Superintendent: [place] [address] Nuclear Medicine Report Signed Patient: Tiffanie Friedman MR#: [id number] : 1945 Acct:[id number] Age/Sex: 79 / F ADM Date: 03/17/25 Loc: SULEMA Attending Dr: Kendell Vaughn MD Ordering Physician: Kendell Vaughn MD Date of Service: 03/17/25 Procedure(s): NM bon e scan whole body Accession Number(s): [id number] cc: Kendell Vaughn MD EXAMINATION: NM BONE [...] Dictated By: Jono Jones MD Signed By: <Henri llanes signed by Jono Jones MD in OV> 03/17/25 1502 DD/ 1000 TD/TT: 03/17/25 1345 Traveling Construction Superintendent: Urine Culture Reviewed date:03/27/2025 12:49:58 PM Interpretation: Performing Lab:[facility], [address] [place] [address] Notes/Report: Urine Culture Report Result Urine Culture < 10,000 cfu/ml MR lumbar spine wo con Reviewed date:04/02/2025 12:37:47 PM Interpretation: Performing Lab: Notes/Report: [facility] [address] [place] [address] Magnetic Resonance Report Signed Patient: Tiffanie Friedman MR#: [id number] : 1945 Acct:[id number] Age/Sex: 79 / F ADM Date: 04/01/25 Loc: HO.MRI Attending Dr: Kendell aVughn MD Ordering Physician: Kendell Vaughn MD Date of Service: 04/01/25 Procedure(s): MR lumbar spine wo con Accession Number(s): [id number] cc: Kendell Vaughn MD EXAMINATION: MR LUMBAR [...] 04/02/25 0718 DD/ 1826 TD/TT: 04/01/25 1848 Traveling Construction Superintendent: [place] [address] Magnetic Resonance Report Signed Patient: Tiffanie Friedman MR#: [id number] : 1945 Acct:[id number] Age/Sex: 79 / F ADM Date: 04/01/25 Loc: HO.MRI Attending Dr: Kednell Vaughn MD Ordering Physician: Kendell Vaughn MD Date of Service: 04/01/25 Procedure(s): MR lum bar spine wo con Accession Number(s): [id number] cc: Kendell Vaughn MD EXAMINATION: MR LUMBAR [...] Bilateral neuroforamina narrowing, right greater than left adrienne paul encroaching the neural elements. L4-5: Grade 1 [...] Cornejo MD in OV> 04/02/25 0718 DD/ TD/TT: 04/01/25 1848 Traveling Construction Superintendent: MEENU ClnCatch+Micro w/rflx Cul t Reviewed date:04/20/2025 12:45:38 PM Interpretation: Performing Lab:[address] [address] Notes/Report: Urine, Clean Catch Color Urine Yellow Appearance Urine Clear PH 5.5 5.0-9.0 Glucose Urine UA Negative Negative mg/dL Urine Blood Negative Negative Specific Farner - Urine 1.020 1.005-1.025 Urine Protein 30 (1+) Neg-Trace mg/dL Urine Ketones Negative Negative mg/dL Nitrite Urine Negative Negative Leukocyte Esterase Urine Negative Negative RBC Urine 0-2 0-2 /HPF WBC Urine 0-5 0-5 /HPF Squamous Epithelial Cell Urine 0-2 0-2 /HPF Bacteria Urine None Seen None Seen Hyaline Casts Urine 0-2 0-2 /LPF CDiff Gene PCR Reviewed date:04/24/2025 12:46:50 PM Interpretation: Performing Lab:[address] [address] Notes/Report: CDiff Gene PCR NEGATIVE Negative If C. difficile strongly suspected despite one negative test, a second test may be sent vs. empiric treatment for C. difficile infection. Pathology Reviewed date:05/14/2025 08:27:24 PM Interpretation: Performing Lab:[facility], [address] [place] [phone] Notes/Report: ------ Name: Silvana Friedman Age/Sex: 79/F : 1945 Unit#: [id number] Attend Dr: Jono Rojo MD Re05/13/25 Status : [facility] Location: [facility] Disch: ------ SPEC : [id number] RECD : 05/13/25 STATUS: JD NORTON NUM: [id number] CHARLES: 05/13/[address] [facility] [address]: Jono Rojo MD ENTERED: 05/13/25- 33 SP TYPE: Surgical OTHR DR: Kendell [...] developed and their performance characteristics determined by [facility]. They have not been cleared or appr rupinder by the U.S. Food and Drug Administration (FDA). However, the FDA has determined that such clearance or approval is not necessary. This laboratory is certified under the Clinical Laboratory Improvement Amendments of 1988 (CLIA) as qualified to perform high comp lexity clinical laboratory testing. Copies To: Kendell Vaughn MD [facility] [address] [place] [id number] CONTINUED ON NEXT PAGE ------ Name: Silvana Friedman Age/Sex: 79/F : 1945 Unit#: [id number] Attend Dr: Jono Rojo MD Re05/13/25 Status : [facility] Location: [facility] Disch: ------ SPEC : [id number] RECD : 05/13/25 STATUS: JD NORTON NUM: [id number] CHARLES: 05/13/[address] [facility] [address]: Jono Rojo MD ENTERED: 05/13/25- 33 SP TYPE: Surgical OTHR DR: Kendell Vaughn MD ORDERED: HE Stain/3, Gross Micro L4 Copies To: (Continued) Jono Rojo MD [facility] [address] [place] [address] ------ Signed (signature on file) Kathleen Alexandro 05/14/25 1353 ------ END OF REPORT Creatinine GFR POC Reviewed date:05/28/2025 05:06:52 PM Interpretation: Performing Lab:[facility], [address] [place] [phone] Notes/Report: [id number] 0.62 >60 1343 HO.BERCHB Creatinine POC 0.6 0.5-1.4 mg/dL GFR POC > 60 Chronic Kidney Disease: Estimated GFR < 60 mL/min/1.73m2 Severe Kidney Disease: Estimated GFR < 15 mL/min/1.73m2 CT abdomen pelvis w con Reviewed date:05/29/2025 12:33:58 PM Interpretation: Performing Lab: Notes/Report: [address] [address] [address] Scan Report Signed Patient: Tiffanie Friedman MR#: [id number] : 1945 Acct:[id number] Age/Sex: 79 / F ADM Date: 05/28/25 Loc: HO.CT Attending Dr: Kendell Vaughn MD Ordering Physician: Kendell Vaughn MD Date of Service: 05/28/25 Procedure(s): CT abdomen pelvis w IV con Accession Number(s): [id number] cc: Kendell Vaughn MD Report Number: [id number]: Total DLP = 187.00 mGy-cm CLINICAL HISTORY: [...] superior fragment. No definitive adjacent inflammatory stranding. Ehqa-fa-fxcptlig convex right thoracolumbar curvature with compensatory convex [...] This document has been electronically signed by: Samym Pizano MD on 05/29/2025 09:15:04 Dictated By: Sammy Pizano MD Signed By: <Electronically signed by Sammy Pizano MD in OV> 05/29/259[address] DD/ 4 TD/TT: 05/29/25914 Traveling Construction Superintendent: [address] [address] [address] Scan Report Signed Patient: Tiffanie Friedman MR#: [id number] : 1945 Acct:[id number] Age/Sex: 79 / F ADM Date: 05/28/25 Loc: HO.CT Attending Dr: Kendell Vaughn MD Ordering Physician: Kendell Vaughn MD Date of Service: 05/28/25 Procedure(s): CT abd omen pelvis w IV con Accession Number(s): [id number] cc: Kendell Vaughn MD Report Number: [id number] [...] fragment. N o definitive adjacent inflammatory stranding. Ctha-te-xpjltabs con vex right thoracolumbar curvature with compensatory [...] By: Sammy Pizano MD Signed By: <Henri icallvioleta signed by Sammy Pizano MD in OV> 05/29/25915 DD/ 4 TD/TT: 05/29/25914 Traveling Construction Superintendent: MM tomosynthesis screening B I Reviewed date:08/21/2025 06:35:30 PM Interpretation: Performing Lab: Notes/Report: [facility] [place] [address] Mammography Report Signed Patient: Tiffanie Friedman MR#: [id number] : 1945 Acct:[id number] Age/Sex: 80 / F ADM Date: 08/13/25 Loc: HO.MAMMO Attending Dr: Kendell Vaughn MD Ordering Physician: Kendell Vaughn MD Results: 1Ne gative Date of Service: 08/13/25 Follow Up: 1 Year From [facility] Mammogram Procedure(s): MM tomosynthesis screening BI Accession Number(s): [id number] cc: Kendell Vaughn MD Reason For Exam: SCREENING EXAMINATION: MM SCREENING DIGITAL BREAST TOMOSYNTHESIS, BILATERAL CLINICAL INFORMATION: Screening. Asymptomatic. COMPARISON: Mammography: Comparison is made with available priors TECHNIQUE: Digital breast mammography with tomosynthesis is performed in both the craniocaudal and mediolateral oblique views along with computer-aided detection (CAD). FINDINGS: The breasts are heterogeneously dense, which may obscure small masses. There are no significant masses, abnormal calcifications, or other abnormalities. MM/MM tomosynthesis screening BI IMPRESSION: No mammographic evidence of malignancy. ASSESSMENT: BI-RADS Category 1: Negative RECOMMENDATION: Routine annual mammography screening. 1 year F/U This examination should not preclude the clinical evaluation of a suspicious palpable abnormality. This patient's information was entered into a reminder system with a target due date for their next mammogram. Electronically signed by: Laurel Nguyễn DO 08/21/2025 10:32 AM EDT Dictated By: Laurel Nguyễn DO Signed By: <Electronically signed by Laurel Nguyễn DO in OV> 08/21/25 1032 DD/ 1101 TD/TT: 08/13/25 1120 Traveling Construction Superintendent: [place] [facility] [address] [place] [address] Mammography Report Signed Patient: Tiffanie Friedman MR#: [id number] : 1945 Acct:[id number] Age/Sex: 80 / F ADM Date: 08/13/25 Loc: HO.MAMMO Attending Dr: Kendell Vaughn MD Ordering Physician: Kendell Vaughn MD Results: 1Ne gative Date of Service: 01/06 Follow Up: 1 Year From Orig ina Mammogram Procedure(s): MM tomosynthesis screening BI Accession Number(s): [id number] cc: Kendell Vaughn MD Reason For Exam: SCREENING EXAMINATION: MM SCREENING DIGITAL BREAST TOMOSYNTHESIS, BILATERAL CLINICAL INFORMATION: Screening. Asymptomatic. COMPARISON: Mammography: Compari son is made with available priors TECHNIQUE: Digital breast mammo graphy with tomosynthesis is performed in both the craniocaudal and mediolateral oblique views along with computer-aided detection (CAD). FINDINGS: The breasts are heterogeneously dense, which may obscure small masses. There are no signifi cant masses, abnormal calcifications, or other abnormalities. M M/MM tomosynthesis screening BI IMPRESSION: No mammographic evid ence of malignancy. ASSESSMENT: BI-RADS Category 1: Negative RECOMMENDATION: Routine annual mammo graphy screening. 1 year F/U This examination robetra uld not preclude the clinical evaluation of a suspicious palpable abnormality. This patient's infor mation was entered into a reminder system with a target due date for their next mammogram. Electronically josh d by: Laurel Nguyễn DO 08/21/2025 10:32 AM EDT RP Dictated By: Laurel Nguyễn DO Signed By: <Henri llanes signed by Laurel Nguyễn DO in OV> 08/21/25 1032 DD/ 1101 TD/TT: 08/13/25 1120 Traveling Construction Superintendent: Bert Olivera. Panel Reviewed date:09/03/2025 12:46:58 PM Interpretation: Performing Lab:[facility], [address] [place] [phone] Notes/Report: Sodium 141 135-145 mmol/L Potassium 4.2 3.3-5.1 mmol/L Chloride 105 96-108 mmol/L Carbon Dioxide 30 22-29 mmol/L Anion Gap 10 12-20 Blood Urea Nitrogen 20 9-16 mg/dL Creatinine 0.62 0.5-1.4 mg/dL Estimated Glomerular Filt Rate > 60 Chronic Kidney Disease: Estimated GFR < 60 mL/min/1.73m2 Severe Kidney Disease: Estimated GFR < 15 mL/min/1.73m2 Glucose Random 85 60-115 mg/dL Calcium 8.9 8.4-10.2 mg/dL Bilirubin Total 0.4 0.0-1.0 mg/dL Aspartate Amino Transferase 25 5-31 U/L Alanine Aminotransferase 12 0-31 U/L Total Protein 7.0 6.5-8.0 g/dL Albumin Level 3.8 3.5-5.0 g/dL Alkaline Phosphatase 62 39-117 U/L FL barium swallow modified Reviewed date:09/28/2025 05:29:21 PM Interpretation: Performing Lab: Notes/Report: [address] [address] Fluoroscopy Report Signed Patient: Tiffanie Friedman MR#: [id number] : 1945 Acct:[id number] Age/Sex: 80 / F ADM Date: 09/28/25 Loc: BLAINE Attending Dr: Kendell Vaughn MD Ordering Physician: Kendell Vaughn MD Date of Service: 09/28/25 Procedure(s): FL Modified Barium Swallow Accession Number(s): [id number] cc: Kendell Vaughn MD Reason for Exam: DYSPHGIA EXAMINATION: Modified Barium Swallow CLINICAL INFORMATION: Dysphagia COMPARISON: None TECHNIQUE: Modified barium swallow was performed under lateral fluoroscopy with patient in standing position. Barium mixed with solids and liquids of different consistencies was administered by the speech pathologist. Examination was recorded in the fluoroscopy suite. FINDINGS: Anterior fusion plate with discectomy C4-5 noted. Persistent laryngeal penetration was present on all liquid consistencies. Aspiration was present on thin and nectar thick liquids to the level of the cords. Persistent piriform sinus pooling was present, with episodic spillover into the glottic region. FLUOROSCOPY TIME: 3 minutes, 6 seconds Number of Spot Images: N/A DOSE AREA PRODUCT: 1339 uGy-m2 (microgray-meter squared) FL/FL Modified Barium Swallow IMPRESSION: 1. Persistent laryngeal penetration on all liquid consistencies. 2. Aspiration to the level of the cords present on thin and nectar thick liquids. Please refer to the full speech pathology report to follow for further detail. Electronically signed by: Brennan Garcia MD 09/28/2025 04:23 PM [facility] Dictated By: Brennan Garcia MD Signed By: <Electronically signed by Brennan Garcia MD in OV> 09/28/25 1623 DD/ 1449 TD/TT: 09/28/25 1456 Traveling Construction Superintendent: [place] [address] Fluoroscopy Report Signed Patient: Tiffanie Friedman MR#: [id number] : 1945 Acct:[id number] Age/Sex: 80 / F ADM Date: 09/28/25 Loc: HO.XRAY Attending Dr: Kendell Vaughn MD Ordering Physician: Kendell Vaughn MD Date of Service: 09/28/25 Procedure(s): FL Mod ified Barium Swallow Accession Number(s): [id number] cc: Kendell Vaughn MD Reason for Exam: DYSPHGIA EXAMINATION: Modified Barium Swallow CLINICAL INFORMATION: Dysphagia COMPARISON: None TECHNIQUE: Modified barium swal low was performed under lateral fluoroscopy with patient in standing position. Barium mixed with solids and liquids of different consistenc ies was administered by the speech pathologist. Examination was agnieszka rded in the fluoroscopy suite. FINDINGS: Anterior fusion plat e with discectomy C4-5 noted. Persistent laryngeal penetration was present on all liquid consistencies. Aspiration was prese nt on thin and nectar thick liquids to the level of the cords. Persistent piriform sinus pooling was present, with episodic spillover into the glottic region. FLUOROSCOPY TIME: 3 minutes, 6 seconds Number of Spot Images: N/A DOSE AREA PRODUCT: 1339 uGy-m2 (microgray-meter squared) F L/FL Modified Barium Swallow IMPRESSION: 1. Persistent laryng eal penetration on all liquid consistencies. 2. Aspiration to the level of the cords present on thin and nectar thick liquids. Please refer to the full speech pathology report to follow for further detail. Electronically josh d by: Brennan Garcia MD 09/28/2025 04:23 PM [facility] Dictated By: Brennan Hall MD Signed By: <Henri mayenvioleta signed by Brennan Garcia MD in OV> 09/28/25 1623 DD/ 1449 TD/TT: 09/28/25 1456 Traveling Construction Superintendent: Reason For Referral Reason Lumbar disc disease Diagnosis 1 Lumbar disc disease (M51.9) Referral Organization Kendell Vaughn MD Referring Provider First Name Kendell Referring Provider Last Name Roderick Referring Provider Speciality Internal edicine Referred Provider Felix Thompson Referred Provider Specialty Neurosurgery General Notes Yamile Bennett 0 03/26/2025 10:52:09 AM > MRI pendingSabrina Annette 04/03/2025 03:21:43 PM > referral info faxed with MRI reportSabrina Annette 04/13/2025 11:45:20 AM > patient is aware of appt Referral Priority Routine Referral Appointment Date 04/16/2025 Reason Dysphagia, oral phas e Diagnosis 1 Dysphagia, oral phas e (R13.11) Referral Organization Kendell Vaughn MD Referring Provider First Name Kendell Referring Provider Last Name Roderick Referring Provider Speciality Internal M edicine Referred Provider [facility], Speech and Hearing Referred Provider Specialty Unknown General Notes Yamile Bennett 1 09:19:45 AM >referral info Sabrina mcallister Annette 09/11/2025 09:33:23 AM >not using this referral patient will need to have a BA swallow done instead Referral Priority Routine Medications Medication SIG (Take, Route, Frequency, Duration) Notes Start Date End Date Status Omeprazole 20 MG 1 capsule 30 minutes before morning meal Orally Once a day Active Carafate 1 GM 1 tablet on an empty stomach Orally Twice a day Not-Taking Estradiol 0.1 MG/GM 1 application Vagina l Two times a Week Active Calcium 600 MG 1 tablet with meals Orally once a day Active Ativan 0.5 MG 1 tablet as needed Orally Twice a day 06/15/2015 Not-Taking Cranberry 405 MG 1 capsule with meals Orally Twice a day Active Methenamine Hippurate 1 GM 1 tablet Orally Twice a day for 10 day(s) Not-Taking Stool Softener 100 MG 1 tablet as needed Orally three times a day Not-Rustam ing tiZANidine HCl 2 MG 1 tablet as needed Orally Three times a day Not-Rustam ing Albuterol Sulfate HFA 108 (90 Base) MCG/ACT 2 puff as needed Inhalation every 4 hrs 02/16/2023 Active Vitamin C 500 MG as directed Orally Active Ibuprofen 800 MG 1 TABLET ORALLY THRE E TIMES A DAY for 30 Not-Taking Vitamin D (Cholecalciferol) 25 MCG (1000 UT) 1 capsule Orally Once a day Active PriLOSEC OTC 20 MG 2 tablet 30 minutes before morning meal Orally Once a day Not-Taking PARoxetine HCl 10 MG TAKE 1 TABLET BY RI UT EVERY DAY IN THE MORNING Orally Once a day for 90 days Active Immunizations Vaccine Route Administration Date Status Comme nts Flu Vaccine IM Intramuscular 07/11/2011 Administered Flu Vaccine IM Intramuscular 07/29/2012 Administered PPSV23 (Pnemovax) Unknown 03/07/2009 Administered Prevnar 13 IM Intramuscular 03/07/2013 Administered Flu Vaccine IM Intramuscular 07/22/2013 Administered Flu Vaccine Unknown 08/27/2014 Administered received at [facility] PPSV23 (Pnemovax) Unknown 08/27/2014 Administered recei erika at [facility] Fluarix Quadrivalent IM Intramuscular 08/09/2015 Administe red Fluarix Quadrivalent IM Intramuscular 08/09/2015 Administe red Fluarix Quadrivalent IM Intramuscular 07/27/2016 Administe red Fluarix Quadrivalent IM Intramuscular 07/30/2017 Adminshaan oneill TDaP Unknown 01/14/2018 Administered pt was given the vaccine at [facility] in [place] on [facility] Fluarix Quadrivalent IM Intramuscular 07/29/2018 Adminshaan oneill Fluarix Quadrivalent Unknown 07/11/2019 Administered CV S Shingrix Unknown 07/11/2019 Administered [facility] PPSV23 (Pnemovax) IM Intramuscular 12/15/2019 Administered Shingrix IM Intramuscular 10/20/2019 Administered Given at [facility]. Shingles Unknown 10/20/2019 Administered Influenza High Dose [...] Problem Status W/U Status Risk Notes Problem 52086062 Age-related osteoporosis without current pathological fracture (M81.0) Active confirmed Problem 542282372 Neuropathy (G62.9) Active confirmed Problem 23356765 Restless leg syn drome (G25.81) Active confirmed Problem 360024471 Reflux esophagit is (K21.00) Active confirmed Problem 78013448 Vitamin D defici ency (E55.9) Active confirmed Problem 12442272 Anxiety (F41.9) Active confirmed Problem Dysphagia (13508484) Dysphagia (R13.10) Active confirmed Problem 280493553 Malignant neopla sm of hepatic flexure (C18.3) Active confirmed Problem 020644189 Other headache syndrome (G44.89) Active confirmed Problem 14651480 Irritable bowel syndrome without diarrhea (K58.9) Active confirmed Problem Oral phase dysphagia (644090761) Dysphagia, oral phase (R13.11) Active confirmed Problem Disorder of lumbar disc (870587790) Lumbar disc disease (M51.9) Active confirmed Problem 882835088 Gastroesophageal reflux disease without esophagitis (K21.9) Active confirmed Problem 89585782 Osteoporosis (M81.0) Active confirmed Problem 970889168 Abnormal mammogr am of left breast (R92.8) Active confirmed Problem 493529321 PAC (premature a trial contraction) (I49.1) Active confirmed Problem 97862957 Oropharyngeal dysphagia (R13.12) Active confirmed Problem 59778839 Iron deficiency anemia, unspecified iron deficiency anemia type (D50.9) Active confirmed Problem 29408759367183 Pharyngeal dysph agia (R13.13) Active confirmed Problem 892900927 Vaginal bleeding (N93.9) Active confirmed Problem 18779484 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) Active confirmed Problem 228382207 Pure hypercholesterolemia (E78.00) Active confirmed Problem 066041084 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) Active confirmed Problem 00286456 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) Active confirme d Problem Plain X-ray of chest abnormal (finding) (8525599312) Abnormal chest xray (R93.89) Active confirmed Problem 45978960 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 confirmed Problem 575323417 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) Active confirmed Problem 61496086 Senile cataract, unspecified age-related cataract type, unspecified laterality (H25.9) Active confirmed Vital Signs Blood pressure diastolic 62 mm Hg 09/10/2025 Height 59.5 in 09/10/2025 Blood pressure systolic 120 mm Hg 09/10/2025 Weight 89 lbs 09/10/2025 BMI 17.67 kg/m2 09/10/2025 Encounters Encounter Location Date Provider Diagnosis Kendell Vaughn MD [address] [place] [address] [id number] 02/23/2025 Kendell Vaughn UTI (urinary tract infection) N39.0 Kendell Vaughn MD [address] [place] [address] [id number] 07/20/2025 Kendell Vaughn Encounter for administration of vaccine Z23 Kendell Vaughn MD [address] [place] [address] [id number] 09/03/2025 Kendell Vaughn Vitamin D deficiency E55.9 ; Pure hypercholesterolemia E78.00 and Iron deficiency anemia, unspecified iron deficiency anemia type D50.9 Kendell Vaughn MD [address] [place] [address] [id number] 11/09/2025 Kendell Vaughn UTI (urinary tract infection) N39.0 Kendell Vaughn MD [address] [place] [address] [id number] 02/09/2025 Kendell Vaughn UTI (urinary tract infection) N39.0 Kendell Vaughn MD [address] [place] [address] [id number] 03/05/2025 Kendell Vaughn UTI (urinary tract infection) N39.0 Kendell Vaughn MD [address] [id number] 03/09/2025 Kendell Vaughn Compression fracture of fifth lumbar vertebra S32.050A Kendell Vaughn MD [address] [place] [address] [id number] 03/19/2025 Kendell Vaughn Compression fracture of first lumbar vertebra, with routine healing, subsequent encounter S32.010D and UTI symptoms R39.9 Kendell Vaughn MD [address] [place] [address] [id number] 03/26/2025 Kendell Vaughn Lumbar disc disease M51.9 and After-treatment Z51.89 Kendell Vaughn MD [address] [place] [address] [id number] 04/07/2025 Kendell Vaughn Lumbar disc disease M51.9 and Near syncope R55 Kendell Vaughn MD [address] [place] [address] [id number] 04/23/2025 Kendell Vaughn Diarrhea R19.7 ; Abd ominal pain R10.9 and Blood tests prior to treatment or procedure Z01.812 Kendell Vaughn MD [address] [place] [address] [id number] 06/11/2025 Kendell Vaughn 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 Kendell Vaughn MD [address] [place] [address] [id number] 09/10/2025 Kendell Vaughn Dysphagia, oral phas e R13.11 ; Interstitial pulmonary fibrosis J84.10 ; Vitamin D deficiency E55.9 ; Gastroesophageal reflux disease without esophagitis K21.9 ; Pure hypercholesterolemia E78.00 ; Iron deficiency anemia, unspecified iron deficiency anemia type D50.9 ; Colon cancer screening Z12.11 and Depression screen Z13.31 Kendell Vaughn MD [address] [place] [address] [id number] 10/12/2025 Kendell Vaughn MD [address] [place] [address] [id number] 03/06/2025 Kendell Vaughn MD [address] [place] [address] [id number] 03/09/2025 Kendell Vaughn MD [address] [place] [address] [id number] 03/10/2025 Kendell Vaughn Lumbar back pain M54 .50 Kendell Vaughn MD [address] [place] [address] [id number] 04/20/2025 Kendell Vaughn MD [address] [place] [address] [id number] 09/10/2025 Kendell Vaughn Dysphagia R13.10 Kendell Vaughn MD [address] [place] [address] [id number] 10/06/2025 Kendell Vaughn Assessments Encounter Date Diagnosis (ICD Code) Assessment Notes Treatment Notes Treatment Clinical Notes Section Notes 02/23/2025 UTI (urinary tract infection) (ICD-10 - N39.0) 07/20/2025 Encounter for administration of vaccine (ICD-10 - Z23) 09/03/2025 Vitamin D deficiency (ICD-10 - E55.9) 11/09/2025 UTI (urinary tract infection) (ICD-10 - N39.0) 02/09/2025 UTI (urinary tract infection) (ICD-10 - [...] any disorders. no uti/ order faxed to [facility] , pending diagnostic testing 03/19/2025 [...] to dr thompson/ MRI orders faxed to [facility] 04/07/2025 Lumbar disc disease (ICD-10 - M51.9) referral to dr thompson/Manuelra catherine is already enterted in system and info faxed to Dr. Thompson offce. 04/07/2025 Near syncope (ICD-10 - R55) will check pulse when she feels the light headedness 04/23/2025 Diarrhea (ICD-10 - R19.7) order faxed to [facility] , pending diagnostic testing 04/23/2025 Abdominal pain (ICD- 10 - R10.9) pending diagnostic testing 06/11/2025 Fibrosis lung (ICD-1 0 - J84.10) discussed findings of recent CT scan with patient, 09/10/2025 Dysphagia, oral phas e (ICD-10 - R13.11) referal to [facility] 09/10/2025 Interstitial pulmona ry fibrosis (ICD-10 - J84.10) is a little more short of breath. will continue to monitor 03/10/2025 Lumbar back pain (ICD-10 - M54.50) 09/10/2025 Dysphagia (ICD-10 - R13.10) 09/03/2025 Pure hypercholesterolemia (ICD-10 - E78.00) 03/26/2025 After-treatment (ICD -10 - Z51.89) pending labs 09/10/2025 Vitamin D deficiency (ICD-10 - E55.9) stable, will continue current regiment 09/03/2025 Iron deficiency anem ia, unspecified iron deficiency anemia type (ICD-10 - D50.9) 04/23/2025 Blood tests prior to treatment or procedure (ICD-10 - Z01.812) 09/10/2025 Gastroesophageal ref lux disease without esophagitis [...] & LAT 08/14/2022 BONE DENSITY DEXA 08/09/2021 Comprehensive Mccarr. Panel Fast CA stress test 01/16/2023 ECG holter monitor 48 hour 07/04/2024 FL barium swallow 02/16/2022 FL barium swallow modified 01/12/2023 FL barium swallow modified 09/10/2025 FL barium swallow modified 08/14/2022 MM tomosynthesis diagnostic BI XR DEXA axial skeleton 10/30/2023 NM bone scan whole body 03/09/2025 XR hip LT min 2V 11/29/2023 XR lumbar spine 2-3V 11/29/2023 XR cervical spine 3V 11/29/2023 UA ClnCatch+Micro w/rflx Cult 11/09/2025 Future Test Test Name Order Date Urinalysis and Microscopic 03/26/2025 BONE DENSITY DEXA 09/01/2025 Next Appt Details Provider Name:Kendell Cadena ier, 03/08/2026 09:00:00 AM, [address] [place] [address], [address], [phone], Provider Name:Kendell Cadena ier, 2026 07:30:00 AM, [address] [place] [address], Suite [facility], [place], [place], [phone], Provider Name:Kendell Cadena ier, 09/13/2026 10:30:00 AM, [address] [place] [address], [place] [address], [place], [place], [phone], Insurance Providers Payer Name Payer Address Payer Phone Subscriber Number Group Number Insured Name Patient Relationship to Insured Coverage Start Date Coverage End Date [employer] [address] [place] [address] [id number] Tiffanie Catalan Self - patient is the insured [employer] [address] [place], [place] [id number] Tiffanie Catalan Self - patient is the insured Medical (General) History Medical History History ICD Code colonoscopy 10/03/2013 and 2 005 negative - no further colonoscopies indicated per Dr. Rojo:12/04/23 colonoscopy pending path. 05/14/25 colonoscopy Darrel pending path pap smear - negative (10/20/2013) blood on underwear. had cysto tizanidine is zanaflex Surgical History Surgery Date(Month/Year) Hammertoe, right fifth toe (Dr. Mcfarlane)
--- OUTSIDE RECORDS SUMMARY | 2025-11-09 10:07 | XMS_ITS | Patient Health Record ---
Author Organization [facility] Address [address] [place] [address] Care Team Providers Care Adjustment Examiner Name Role Phone Roderick GARCIA, Kendell Primary Care Provider Jono Gamboa Unavailable [phone] Allergies Allergen (clinical drug ingredient) Drug/Non Drug Allergy documented on EMR Reaction Allergy Type Onset Date Status Codeine Phosphate Unknown Drug Allergy Active erythromycin Erythromycin Unknown Drug Allergy A ctive Results Component Value Reference Range Notes Pathology Reviewed date:05/31/2025 10:56:31 PM Interpretation: Performing Lab:[facility], [address] [place] [id number] Notes/Report: Reason For Referral No Information Medications Medication SIG (Take, Route, Frequency, Duration) Notes Start Date End Date Status Omeprazole 20 MG Capsule Delayed Release TAKE 1 CAPSULE EVERY MORNING. YOU MAY SWALLOW THE CAPSULE WITH SOME APPLESAUCE,; Duration: 90 Active Stool Softener 100 MG Capsule 1 tablet as needed Orally 2 daily Active MiraLax 17 GM/SCOOP Powder 1 scoop mixed with 8 ounces of fluid Orally Once a day; Duration: 30 day(s) Active rOPINIRole HCl 0.5 MG Tablet Oral; Duration: 90 Not-Takin g/PRN Prilosec 20 MG Capsule Delayed Release 1 Orally twice a day Not- Taking/PRN Cranberry Concentrate 500 MG Capsule as directed Orally 2 daily Active Estradiol Micronized 0.4 % Cream as directed Transdermal Active Calcium 500 MG Tablet 1 tablet with meal s with vitamin d Orally Twice a day Active Ventolin HFA 108 (90 Base) MCG/ACT Aerosol Solution INHALE 2 PUFFS INTO THE LUNGS EVERY 4 HOURS NEEDED FOR 30 DAYS Inhalation; Duration: 30 prn Active Calcium Citrate-Vitamin D 315-5 MG-MCG Tablet TAKE 1 TABLET BY MOUTH EVERY DAY FOR 30 DAYS Oral; Duration: 90 Active Vitamin C 500 MG Tablet Chewable 1 tablet Orally Once a day; Duration: 30 day(s) Active D3-1000 25 MCG (1000 UT) Capsule TAKE 1 CAPSULE BY MOUTH DAILY Oral; Duration: 90 Active PARoxetine HCl 10 MG Tablet TAKE 1 TABLET BY MOUTH EVERY DAY IN THE MORNING Oral; Duration: 90 Active Immunizations Vaccine Route Administration Date Status Comme nts Influenza Unknown 08/12/2019 Administered Influenza Unknown 08/29/2022 Administered Social History Social History Drugs/Alcohol: Social Info Question Answer Notes Alcohol Screen Did you have a drink containing alcohol in the past year? Yes How often did you have a drink containing alcohol in the past year? Monthly or less (1 point) How many drinks did you have on a typical day when you were drinking in the past year? 1 or 2 drinks (0 point) How often did you have 6 or more drinks on one occasion in the past year? Never (0 point) Points 1 Interpretation Negative Additional Details Category Social Info Options Details Miscellaneous: Exercise: Walks 2 miles a day Marital status: Occupation: retired Section Notes: Nonsmoker x 30 yrs; 1 [...] Status Risk Notes Problem Iron deficiency anemia (99459064) Iron deficiency anemia (D50.9) Active confirmed Problem Gastroesophageal reflux disease (028825822) Gastroesophageal reflux disease, esophagitis presence not specified (K21.9) Active confirmed Problem Constipation (76309567) Constipation, unspecified constipation type (K59.00) Active confirmed Problem History of malignant neoplasm of colon (168690151) Personal history of colon cancer (Z85.038) Active confirmed Problem Chronic constipation (847601392) Chronic constipation (K59.09) Active confirmed Problem Esophageal dysphagia (74223652) Esophageal dysphagia (R13.19) Active confirmed Problem Primary adenocarcinoma of ascending colon (990683510599047) Primary adenocarcinoma of ascending colon (C18.2) Active confirmed Vital Signs Blood pressure diastolic 00 mm Hg 11/25/2024 Height 58.25 in 11/25/2024 Blood pressure systolic 00 mm Hg 11/25/2024 Weight 91 lbs 11/25/2024 BMI 18.85 kg/m2 11/25/2024 Encounters Encounter Location Date Provider Diagnosis [facility] [address] [place] [id number] 05/13/2025 Jono Rojo [facility] [address] [place] [id number] 11/25/2024 Jono Rojo Personal history of colon cancer Z85.038 ; Chronic constipation K59.09 and Gastroesophageal reflux disease, esophagitis presence not specified K21.9 [facility] [address] [place] [id number] 01/08/2025 Jono Rojo [facility] [address] [place] [id number] 03/20/2025 Jono Rojo [facility] [address] [place] [id number] 04/08/2025 Jono Rojo [facility] [address] [place] [id number] 05/28/2025 Jono Rojo Assessments Encounter Date Diagnosis [...] again for allowing me to participate in Susys care. I shall continue to keep you [...] Date MEDICARE OF [place] [address] [place] [address] [phone] [id number] CATERINACORRIE HILLTIFFANIE TEJADA Self - patient is the insured [employer] CLAIM[employer] [address] [place] [address] [id number] BRENDA LIZTIFFANIE TEJADA Self - patient is the insured Medical (General) History Medical History History ICD Code Denies [place],DM,CVA,renal disease Colonoscopy 11-17-2004--internal hemorrhoi ds; neg. flex [...] and 80% normal swallows Ascending colon adenocarcino la 12/06/2023 pT3 N0-underwent surgery with Dr. Escobar [...]
--- OUTSIDE RECORDS SUMMARY | 2025-11-09 10:07 | XMS_ITS | Patient Health Record ---
Author Organization [facility] Address [address] [facility] [place] [address] Care Team Providers Care Plastic Fixture Builder Name Role Phone Roderick GARCIA, Kendell Primary Care Provider Ken Owen Unavailable [phone] Allergies Allergen (clinical drug ingredient) Drug/Non Drug [...] Problem Acquired hammer toe of right foot (2819595807057273) Other hammer toe(s) (acquired), right foot (M20.41) Active confirmed Problem Localized, primary osteoarthritis of the ankle and/or foot (378478225) Primary osteoarthrit is, right ankle and foot (M19.071) Active confirmed Problem Localized, primary osteoarthritis of the ankle and/or foot (647361517) Primary osteoarthrit is, left ankle and foot (M19.072) Active confirmed Problem Acquired hallux rigidus (5631190) Hallux rigidus, left foot (M20.22) Active confirmed Problem Acquired hallux rigidus (7897941) Hallux rigidus, right foot (M20.21) Active confirmed [...] [employer] [address] [place] [address] [id number] Tiffanie Catalan Self - patient is the insured [facility] [address] [place] [address] [phone] [id number] Tiffanie Catalan Self - patient is the insured Medical (General) History Medical History History ICD Code mumps measles chicken pox Osteoporosis Surgical History Surgery Date(Month/Year) carpal tunnel surgery 2015 HT right 5th 08/12/2015
--- OUTSIDE RECORDS SUMMARY | 2025-11-09 10:08 | XMS_ITS | Clinical Summary ---
Author Organization [facility] Prior to 04/11/[address] [place] [address] Care Team Providers Care Balance Wheel Hand Filer Name Role Phone Kendell Vaughn MD Primary Care Provider [phone] Social History Tobacco Use Types Packs/Day Years [...] age to complete this topic Care Teams Balance Wheel Hand Filer Relationship Specialty Start Date End Date Kendell Vaughn MD [address] [place] [address] PCP - General Internal Medicine 04/26/21
== END 2025-11-09 09:32 | disposition home or self-care (01) ==
LOC: HO.MAMMO 09:31
PROVIDERS: PCP Internal Medicine; Visit Provider Internal Medicine
DX: M81.0 Age-related osteoporosis without current pathological fracture (principal); Z13.89 Encounter for screening for other disorder
CPT/HCPCS: 77080; 81001; 87086

== ENCOUNTER → 2025-11-09 09:45 | Outpatient (BNV) | payer MEDICARE, SELFPAY | PROVIDERS: PCP Internal Medicine; Visit Provider Radiology Diagnostic Radiology | DX: E28.39 Other primary ovarian failure (principal) | CPT/HCPCS: 77080 ==

== ENCOUNTER 2025-11-09 10:54 | Outpatient (REF) | payer MEDICARE, SELFPAY ==
[2025-11-09 11:04] LABS: Appearance Urine Clear; Glucose Urine UA Negative (Negative); PH 7.5 (5.0-9.0); Specific Gravity - Urine 1.020 (1.005-1.025); UMIC TRIGGER UACC YES
[2025-11-09 11:17] LABS: UACC Culture Trigger YES
== END 2025-11-09 10:55 ==
LOC: HO.LNP 10:54
PROVIDERS: Visit Provider Internal Medicine
DX: N39.0 Urinary tract infection, site not specified (principal)
CPT/HCPCS: 81001; 87086